=== PATIENT | male | born 1940 | race Caucasian/White ===

== ENCOUNTER 2020-08-10 12:24 | Outpatient (REF) | payer MEDICARE, SELFPAY ==
--- NOTE | ~2020-08-10 | XR_ITS ---
EXAMINATION: XR KNEE, BILATERAL XR KNEE, RIGHT CLINICAL INFORMATION: Pain COMPARISON: None TECHNIQUE: AP standing view of both knees. Lateral and sunrise views of the right knee. FINDINGS: Right knee: No fracture or subluxation. Moderate to severe lateral compartment narrowing with subchondral sclerosis. Small tricompartmental marginal osteophytes. Small joint effusion. Vascular calcifications. Mild soft tissue swelling anteriorly. Left knee: No fracture or malalignment on this single view. Mild narrowing of the medial and lateral compartments with small marginal osteophytes. XR/XR knee standing BI IMPRESSION: Tricompartment degenerative changes of the right knee, moderate to severe at the lateral compartment. Small joint effusion.
--- NOTE | ~2020-08-10 | XR_ITS ---
EXAMINATION: XR KNEE, BILATERAL XR KNEE, RIGHT CLINICAL INFORMATION: Pain COMPARISON: None TECHNIQUE: AP standing view of both knees. Lateral and sunrise views of the right knee. FINDINGS: Right knee: No fracture or subluxation. Moderate to severe lateral compartment narrowing with subchondral sclerosis. Small tricompartmental marginal osteophytes. Small joint effusion. Vascular calcifications. Mild soft tissue swelling anteriorly. Left knee: No fracture or malalignment on this single view. Mild narrowing of the medial and lateral compartments with small marginal osteophytes. XR/XR knee RT 2V IMPRESSION: Tricompartment degenerative changes of the right knee, moderate to severe at the lateral compartment. Small joint effusion.
== END 2020-08-10 12:25 | disposition home or self-care (01) ==
LOC: HO.HOSX 12:24
PROVIDERS: Visit Provider Orthopaedic Surgery
DX: M25.561 Pain in right knee (principal); M17.11 Unilateral primary osteoarthritis, right knee; G20 Parkinson's disease; Z88.6 Allergy status to analgesic agent
CPT/HCPCS: 73560; 73565; 99202

== ENCOUNTER → 2020-09-21 14:30 | Outpatient (BNVA) | payer MEDICARE, SELFPAY | PROVIDERS: PCP Internal Medicine; Visit Provider Orthopaedic Surgery | DX: M17.11 Unilateral primary osteoarthritis, right knee (principal); M17.12 Unilateral primary osteoarthritis, left knee | CPT/HCPCS: 20610; 99202; J7318 ==

== ENCOUNTER → 2020-10-16 13:03 | Outpatient (BNVA) | payer MEDICARE, SELFPAY | PROVIDERS: PCP Internal Medicine; Visit Provider Orthopaedic Surgery | DX: G20 Parkinson's disease (principal); M17.11 Unilateral primary osteoarthritis, right knee | CPT/HCPCS: 99212 ==

== ENCOUNTER 2020-12-19 07:36 | Outpatient (REF) | payer MEDICARE, SELFPAY ==
--- NOTE | ~2020-12-19 | FL_ITS ---
EXAMINATION: XR FLUOROSCOPY WITH IMAGES CLINICAL INFORMATION: Unilateral primary osteoarthritis of the right knee. COMPARISON: None. TECHNIQUE: Fluoroscopy performed by Dr. Dimas. Fluoroscopy 0.2time: minutes DAP: 1.59 Gycm2 Images: 3 FL/FL guidance in treatment room FINDINGS/IMPRESSION: Radiopaque needles overlie the distal femoral and proximal tibial metaphyses. Mild tricompartmental degenerative joint changes are seen. Please refer to the procedure report for more detailed findings.
== END 2020-12-19 07:37 | disposition home or self-care (01) ==
LOC: HO.RADIR 07:36
PROVIDERS: Visit Provider Anesthesiology
DX: M17.11 Unilateral primary osteoarthritis, right knee (principal); G20 Parkinson's disease; Z79.899 Other long term (current) drug therapy
CPT/HCPCS: 64454

== ENCOUNTER → 2020-12-25 13:07 | Outpatient (BNVA) | payer MEDICARE, SELFPAY | PROVIDERS: PCP Internal Medicine; Visit Provider Anesthesiology | DX: M17.11 Unilateral primary osteoarthritis, right knee (principal) | CPT/HCPCS: 99202 ==

== ENCOUNTER → 2021-02-19 13:45 | Outpatient (BNVA) | payer MEDICARE, SELFPAY | PROVIDERS: PCP Internal Medicine; Visit Provider Anesthesiology | DX: M17.11 Unilateral primary osteoarthritis, right knee (principal) | CPT/HCPCS: 99212 ==

== ENCOUNTER 2021-03-20 06:30 | Outpatient (REF) | payer MEDICARE, SELFPAY ==
--- NOTE | ~2021-03-20 | FL_ITS ---
EXAMINATION: XR FLUOROSCOPY WITH IMAGES CLINICAL INFORMATION: M17.11 - Unilateral primary osteoarthritis, right knee COMPARISON: Standing AP knees radiograph 08/10/2020 TECHNIQUE: Fluoroscopy performed by pain management physician. Fluoroscopy time: 0.3 minutes DAP: 0.856 Gycm2 Images: 3 FINDINGS: There are spinal needles adjacent to the distal femoral shaft, medial and lateral sides, mid depth. There is a spinal needle adjacent to the proximal tibia on medial side mid depth. There are degenerative changes greater lateral knee joint compartment with joint narrowing and marginal osteophytes. FL/FL guidance in treatment room IMPRESSION: Fluoroscopy for pain management procedures.
== END 2021-03-20 06:31 | disposition home or self-care (01) ==
LOC: HO.RADIR 06:30
PROVIDERS: Visit Provider Anesthesiology
DX: M17.11 Unilateral primary osteoarthritis, right knee (principal)
CPT/HCPCS: 64624; J3300

== ENCOUNTER → 2021-05-03 11:14 | Outpatient (BNVA) | payer MEDICARE, SELFPAY | PROVIDERS: PCP Internal Medicine; Visit Provider Anesthesiology | DX: Z13.89 Encounter for screening for other disorder (principal) | CPT/HCPCS: Q3014 ==

== ENCOUNTER → 2021-09-20 13:29 | Outpatient (BNVA) | payer MEDICARE, SELFPAY | PROVIDERS: PCP Internal Medicine; Visit Provider Orthopaedic Surgery | DX: M17.11 Unilateral primary osteoarthritis, right knee (principal); M25.562 Pain in left knee; G20 Parkinson's disease | CPT/HCPCS: 20610; 99212; J7318 ==

== ENCOUNTER → 2021-10-09 08:24 | Outpatient (BNVA) | payer MEDICARE, SELFPAY | PROVIDERS: PCP Internal Medicine; Visit Provider Psychiatry & Neurology Neurology | DX: G20 Parkinson's disease (principal); G47.52 REM sleep behavior disorder; G25.81 Restless legs syndrome; M17.11 Unilateral primary osteoarthritis, right knee | CPT/HCPCS: 99202 ==

== ENCOUNTER → 2021-11-06 15:05 | Outpatient (BNVA) | payer MEDICARE, SELFPAY | PROVIDERS: PCP Internal Medicine; Visit Provider Psychiatry & Neurology Neurology | DX: G20 Parkinson's disease (principal); G47.52 REM sleep behavior disorder; G25.81 Restless legs syndrome | CPT/HCPCS: 99212 ==

== ENCOUNTER → 2021-12-18 15:01 | Outpatient (BNVA) | payer MEDICARE, SELFPAY | PROVIDERS: PCP Internal Medicine; Visit Provider Psychiatry & Neurology Neurology | DX: G20 Parkinson's disease (principal); G47.52 REM sleep behavior disorder; G25.81 Restless legs syndrome | CPT/HCPCS: 99212 ==

== ENCOUNTER → 2022-03-26 15:02 | Outpatient (BNVA) | payer MEDICARE, SELFPAY | PROVIDERS: PCP Internal Medicine; Visit Provider Psychiatry & Neurology Neurology | DX: G20 Parkinson's disease (principal); G47.52 REM sleep behavior disorder; G25.81 Restless legs syndrome | CPT/HCPCS: 99212 ==

== ENCOUNTER → 2022-06-19 08:54 | Outpatient (BNVA) | payer MEDICARE, SELFPAY | PROVIDERS: PCP Internal Medicine; Visit Provider Psychiatry & Neurology Neurology | DX: G20 Parkinson's disease (principal); G47.52 REM sleep behavior disorder; G25.81 Restless legs syndrome; Z79.899 Other long term (current) drug therapy | CPT/HCPCS: 99212 ==

== ENCOUNTER → 2022-09-05 12:34 | Outpatient (BNVA) | payer MEDICARE, SELFPAY | PROVIDERS: PCP Internal Medicine; Visit Provider Psychiatry & Neurology Neurology | DX: G20 Parkinson's disease (principal); G47.52 REM sleep behavior disorder; G25.81 Restless legs syndrome | CPT/HCPCS: 99212 ==

== ENCOUNTER 2023-02-24 09:24 | Outpatient (AMB) | payer MEDICARE, SELFPAY ==
--- NOTE | 2023-02-24 09:25 | A.OFFVIS_ITS ---
Intake Intake Visit Reasons: 3m f/u for Parkinsons-lvm Intake Note: Pt is on telehealth visit for 3 month follow up for Parkinson's . He reports he recently had surgery where he had a stimulator implanted and feels he is doing great with this. Tremors have much better. Allergies aspirin Allergy (Unknown, Verified 02/24/23 09:27) nausea and vomiting Medication List - Last Reconciled 02/24/23 by Ananya Baer MD amantadine HCl 100 mg PO QAM carbidopa-levodopa 36.25-145 mg ER (Rytary) 3 caps PO QID clonazepam 0.5 mg PO BEDTIME finasteride 5 mg PO DAILY mirtazapine 30 mg PO BEDTIME ropinirole 1-4 tabs orally bedtime; administer 1-3 hours before bedtime venlafaxine 225 mg PO DAILY venlafaxine ER 225 mg PO BEDTIME HPI HPI Comments History of Present Illness Details 82y/o right handed male calls for follow up .He was unable to come for in perosn visit due to testing postive for COVID19. He did not have equipment to do a video visit. He had Abbe GPI DBS On November 132022 . He did well, had a brief episode of unresponsiveness - but his cT and EEG were normal. The GPI DBS has helped his tremors . He feels weak since he tested positive for COVID 1 weeks ago No falls . His RBD is well controlled now. His initial symptoms 10 years ago was left sided tremors. Now he has both rest and postural , action tremors. He also has right hand tremors and occasional leg tremors. SPeech- softer.He also has intermittent drooling. Handwriting is smaller, he can print but cannot writing. He can dress and shower - slower . He has trouble turning in bed. He is on effexor which is helping his mood. He reports word finding difficulty and problems with short term memory issues. 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 He has constipation - takes smooth move tea and prunes [facility] Medical History Pulmonary embolism Depression Osteoarthritis of right knee Parkinson disease Surgical History S/P deep brain stimulator placement History of knee replacement History of hip surgery Hx of cholecystectomy Hx of appendectomy Social History Alcohol intake: never Patient Tobacco Use Status: Never used Tobacco Current occupational status: retired Physical Exam Const Other: normal speech General: cooperative Orientation/consciousness: patient oriented x3 Neuro General: patient oriented x3 Assessment & Plan Assessment & Plan (1) Parkinson disease: Code(s): G20 - Parkinson's disease (2) REM behavioral disorder: Code(s): G47.52 - REM sleep behavior disorder (3) Restless legs syndrome (RLS): Code(s): G25.81 - Restless legs syndrome (4) Parkinson disease: Code(s): G20 - Parkinson's disease Plan amantadine 100mg qam - for dyskinesias Rytary 36/145 -3 tabs 4 times a day Tried rytary ,ogentys, rasagiline, selegelline , amantadine and entacapone in the past clonazepam 0.5mg q7pm . Medications: Refilled clonazepam q 7pm 0.5 mg PO BEDTIME 30 tabs 2RF Telehealth Telehealth Location of provider rendering services: practice address Location of patient: address on file Patient Identification confirmed using: Name, : Yes Telehealth method: voice only Patient verbally consented to treatment: Yes Patient verbally consented to billing insurance company: Yes Patient informed of any privacy concerns related to visit: Yes Minutes spent on Phone/Video with Pt.: 22 Coding Level of Care Code Tele Est Pt Level 4 (86803) Diagnoses Parkinson disease G20 REM behavioral disorder G47.52 Restless legs syndrome (RLS) G25.81 Time Spent (min) 22
== END 2023-02-24 11:50 | disposition home or self-care (01) ==
LOC: HO.HSMS 09:24
PROVIDERS: PCP Internal Medicine; Visit Provider Psychiatry & Neurology Neurology
DX: G20.A1 Parkinson's disease without dyskinesia, without mention of fluctuations (principal); G47.52 REM sleep behavior disorder; G25.81 Restless legs syndrome; Z96.82 Presence of neurostimulator
CPT/HCPCS: 99443

== ENCOUNTER → 2023-02-24 09:24 | Outpatient (BNVA) | payer MEDICARE, SELFPAY | PROVIDERS: PCP Internal Medicine; Visit Provider Psychiatry & Neurology Neurology | DX: G47.52 REM sleep behavior disorder (principal); G25.81 Restless legs syndrome ==

== ENCOUNTER 2023-05-08 08:24 | Outpatient (AMB) | payer MEDICARE, SELFPAY ==
[2023-05-08 08:28] VITALS: BP 100/72; PULSE 79; O2SAT 96; BMI 25.1
--- NOTE | 2023-05-08 08:28 | MHC.OFFVIS ---
Intake Vital Signs 05/08/23 08:28 Height 6 ft 1 in Weight 190 lb BMI 25.1 BP 100/72 Blood Pressure Location Rt brachial Position Sitting Pulse 79 Pulse Source Pulse Oximeter Pulse Oximetry (%) 96 Oxygen Delivery Method Room Air Intake Visit Reasons: Follow up-Confirmed Intake Note: Patient presents for follow up . Allergies aspirin Allergy (Unknown, Verified 05/08/23 08:31) nausea and vomiting Medication List - Last Reconciled 05/08/23 by Ananya Baer MD amantadine HCl 100 mg PO QAM apixaban (Eliquis) 5 mg PO BID carbidopa-levodopa 36.25-145 mg ER (Rytary) 3 caps PO QID clonazepam 0.5 mg PO BEDTIME finasteride 5 mg PO DAILY mirtazapine 30 mg PO BEDTIME ropinirole 1-4 tabs orally bedtime; administer 1-3 hours before bedtime venlafaxine 225 mg PO DAILY venlafaxine ER 225 mg PO BEDTIME HPI HPI Comments History of Present Illness Details 82y/o right handed male comes for follow up .He reports increased freezing episodes, increased tremors , eye twicthing and feels he is weak . He has falls every 3 months but multiple near falls. He uses his walker consistently. he has PT now and he is unable to straighten his knees. He had Abbe GPI DBS On November 132022 . He did well, had a brief episode of unresponsiveness - but his CT and EEG were normal. The GPI DBS has helped his tremors . No falls . His RBD is well controlled now. He reports leg movements in sleep that keeps him awake. His initial symptoms 11 years ago was left sided tremors. Now he has both rest and postural , action tremors. He also has right hand tremors and occasional leg tremors. SPeech- softer.He also has intermittent drooling. Handwriting is smaller, he can print but cannot writing. He can dress and shower - slower . He has trouble turning in bed. He is on effexor which is helping his mood. He reports word finding difficulty and problems with short term memory issues. 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 He has constipation - takes smooth move tea and prunes [facility] Medical History (Updated 05/08/23 @ 09:26 by Ananya Baer MD) Parkinson's disease with dyskinesia, with fluctuations Pulmonary embolism Depression Osteoarthritis of right knee Parkinson disease Surgical History S/P deep brain stimulator placement History of knee replacement History of hip surgery Hx of cholecystectomy Hx of appendectomy Social History Alcohol intake: never Patient Tobacco Use Status: Never used Tobacco Current occupational status: retired Physical Exam Vital Signs: Last Vital Signs Pulse 79 05/08/23 08:28 BP 100/72 05/08/23 08:28 Pulse Ox 96 05/08/23 08:28 Oxygen Delivery Method Room Air 05/08/23 08:28 BMI result Body Mass Index 25.1 Const General: cooperative and healthy appearing Nutritional Appearance: average body habitus Orientation/consciousness: patient oriented x3 Neuro Other: mild decreased facial expression and blink No tremors SPeech- mild hypophonia UE-No cog wheel rigidity , mild bradykinesia FFM mildly decreased LE_ no tremors stiffness of both knees with right knee swollen Unable to straighten his legs , very unstable while walking with walker General: patient oriented x3 Assessment & Plan Assessment & Plan (1) Parkinson's disease with dyskinesia, with fluctuations: Code(s): G20.B2 - Parkinson's disease with dyskinesia, with fluctuations (2) REM behavioral disorder: Code(s): G47.52 - REM sleep behavior disorder (3) Restless legs syndrome (RLS): Code(s): G25.81 - Restless legs syndrome (4) Parkinson disease: Code(s): G20 - Parkinson's disease Plan Left GPI and Right GPI 2a,b,c and 1 a b c 2.7 50 ms 135 HZ 9and 10 a b c 2.7 Hz 50 ms 135 HZ Amantadine 100mg qam - for dyskinesias Rytary 36/145 -3 tabs 4 times a day Restart ropinirole 0.25 mg 1-4 tabs qhs for RLS This was a counseling predominated session - patients main concern is his balance falls and freezing episodes which are not treatable by adjusting his DBS settings or changing medications Discussed about moving to Assisted Living which the patients is interested in as there are steps to go into the house and she is concerned about falls. Medications: Refilled ropinirole 1-4 tabs orally bedtime; administer 1-3 hours before bedtime 120 tabs 0RF Coding Level of Care Code Est Pt Level 5 (27102) Diagnoses Parkinson's disease with dyskinesia, with fluctuations G20.B2 REM behavioral disorder G47.52 Restless legs syndrome (RLS) G25.81 Parkinson disease G20
== END 2023-05-08 09:14 | disposition home or self-care (01) ==
PROVIDERS: PCP Internal Medicine; Visit Provider Psychiatry & Neurology Neurology
DX: G20.B2 Parkinson's disease with dyskinesia, with fluctuations (principal); G47.52 REM sleep behavior disorder; G25.81 Restless legs syndrome; Z45.42 Encounter for adjustment and management of neurostimulator; Z96.82 Presence of neurostimulator
CPT/HCPCS: 95970; 99215

== ENCOUNTER → 2023-05-08 08:24 | Outpatient (BNVA) | payer MEDICARE, SELFPAY | PROVIDERS: PCP Internal Medicine; Visit Provider Psychiatry & Neurology Neurology | DX: G20.B2 Parkinson's disease with dyskinesia, with fluctuations (principal); G47.52 REM sleep behavior disorder; G25.81 Restless legs syndrome | CPT/HCPCS: 95970; 99212 ==

== ENCOUNTER 2023-11-05 10:02 | Outpatient (AMB) | payer MEDICARE, SELFPAY ==
--- NOTE | 2023-11-05 10:17 | A.OFFVIS_ITS ---
Vital Signs 11/05/23 10:18 Height 6 ft 1 in BP 112/68 Blood Pressure Location Rt brachial Position Sitting Respiration 16 Pulse 86 Pulse Source Pulse Oximeter Pulse Oximetry (%) 94 Oxygen Delivery Method Room Air Intake Visit Reasons: Follow Up 6 month - Confirmed Intake Note: Pt presents for 6 month follow up for Parkinson's. 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 He has frequent falls - 2-3 falls since last visit. He had Abbe GPI DBS On November 132022 . He did well, had a brief episode of unresponsiveness - but his CT and EEG were normal. The GPI DBS has helped his tremors . No falls . His RBD is well controlled now. His initial symptoms 11 years ago was left sided tremors. Now he has both rest and postural , action tremors. He also has right hand tremors and occasional leg tremors. SPeech- softer.He also has intermittent drooling. Handwriting is smaller, he can print but cannot writing. He can dress and shower - slower . He has trouble turning in bed. He is on effexor which is helping his mood. He reports word finding difficulty and problems with short term memory issues. 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 He has constipation - takes smooth move tea and prunes [facility] Medical History Parkinson's disease with dyskinesia, with fluctuations Pulmonary embolism Depression Osteoarthritis of right knee Parkinson disease Surgical History S/P deep brain stimulator placement History of knee replacement History of hip surgery Hx of cholecystectomy Hx of appendectomy Social History Alcohol intake: never Patient Tobacco Use Status: Never used Tobacco Current occupational status: retired Physical Exam Vital Signs: Last Vital Signs Pulse 86 11/05/23 10:18 Resp 16 11/05/23 10:18 BP 112/68 11/05/23 10:18 Pulse Ox 94 11/05/23 10:18 Oxygen Delivery Method Room Air 11/05/23 10:18 Const General: cooperative and healthy appearing Nutritional Appearance: average body habitus Orientation/consciousness: patient oriented x3 Neuro Other: mild decreased facial expression and blink No tremors SPeech- mild hypophonia UE-No cog wheel rigidity , mild bradykinesia FFM mildly decreased LE_ no tremors stiffness of both knees with right knee swollen General: patient oriented x3 Assessment & Plan Assessment & Plan (1) Parkinson's disease with dyskinesia, with fluctuations: Code(s): G20.B2 - Parkinson's disease with dyskinesia, with fluctuations Category: Medical (2) REM behavioral disorder: Code(s): G47.52 - REM sleep behavior disorder Category: Medical (3) Restless legs syndrome (RLS): Code(s): G25.81 - Restless legs syndrome Category: Medical (4) Parkinson disease: Code(s): G20 - Parkinson's disease Category: Medical Plan Left GPI and Right GPI 2a,b,c and 1 a b c 2.7 50 ms 135 HZ 9and 10 a b c 2.7 Hz 50 ms 135 HZ Amantadine 100mg qam - for dyskinesias Rytary 36/145 -3 tabs 4 times a day Restart clonazepam 0.5 mg 1/2 tab qhs This was a counseling predominated session - patients main concern is his balance falls and freezing episodes which are not treatable by adjusting his DBS settings or changing medications Discussed about moving to Assisted Living which the patients is interested in as there are steps to go into the house and she is concerned about falls- very expensive for the patient Coding Level of Care Code Est Pt Level 4 (27247) Complex EM visit Add On G2211 Diagnoses Parkinson's disease with dyskinesia, with fluctuations G20.B2 REM behavioral disorder G47.52 Restless legs syndrome (RLS) G25.81 Parkinson disease G20
[2023-11-05 10:18] VITALS: BP 112/68; PULSE 86; RESP 16; O2SAT 94
== END 2023-11-05 10:51 | disposition home or self-care (01) ==
PROVIDERS: PCP Internal Medicine; Visit Provider Psychiatry & Neurology Neurology
DX: G20.B1 Parkinson's disease with dyskinesia, without mention of fluctuations (principal); G47.52 REM sleep behavior disorder; G25.81 Restless legs syndrome
CPT/HCPCS: 99214; G2211

== ENCOUNTER → 2023-11-05 10:02 | Outpatient (BNVA) | payer MEDICARE, SELFPAY | PROVIDERS: PCP Internal Medicine; Visit Provider Psychiatry & Neurology Neurology | DX: G20.B2 Parkinson's disease with dyskinesia, with fluctuations (principal); G47.52 REM sleep behavior disorder; G25.81 Restless legs syndrome | CPT/HCPCS: 99212 ==

== ENCOUNTER 2025-03-16 14:37 | Outpatient (AMB) | payer MEDICARE, SELFPAY ==
--- OUTSIDE RECORDS SUMMARY | 2024-05-25 10:45 | XMS_ITS ---
Author Organization [facility] Address [address] [place] [address] Care Team Providers Care Picture Enlarger Name Role Phone Kieran DANGELO, [place] Primary Care Provider Un available Star Dyer Unavailable [phone] Encounters Encounter Location Date Provider Diagnosis [facility] [address] [place] [address] 05/25/2024 Star Dyer Plan Of Treatment No Information Progress Notes * ELLYEmeterio BOBODOB: 1 (85 yo M)Acc No.[id number]:05/25/2024 Progress Note Patient: Emeterio TORRES Provider: Karmen Dyer DPM :1940 A ge:84 Y S ex:Male Date:05/25/2024 Address:[address] , [facility] Pcp:Chano Alcaraz MD Subjective: * Chief Complaints: * * Medical History: Objective: * Vitals: Assessment: Plan: * Treatment: * Images: * The named appointment provid er may or may not be the originator of this progress note, and it is not deemed complete until electronically signed by the appointment provider. Sign off status: Pending * Provider: Karmen Dyer DPM Date: 0 05/25/2024 Generated for Printi ng/Faxing/eTransmitting on: 05/17/2024 03:08 AM EST
--- NOTE | 2025-03-16 14:38 | MHC.OFFVIS ---
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 He reports increase in tremors and wants to increase DBS settings. He takes clonazepam as needed it made him very sleepy. He reports intermittent RBD Mild hallucinations. He reports increased freezing episodes, increased tremors , eye twitching and feels he is weak . No falls.He is in and Assisted Living and gets help for ADLs He is wheelchair bound He had Abbe GPI DBS On November 132022 . He did well, had a brief episode of unresponsiveness - but his CT and EEG were normal. The GPI DBS has helped his tremors . History from 10/2023 His initial symptoms 11 years ago was left sided tremors. Now he has both rest and postural , action tremors. He also has right hand tremors and occasional leg tremors. SPeech- softer.He also has intermittent drooling. Handwriting is smaller, he can print but cannot writing. He can dress and shower - slower . He has trouble turning in bed. He is on effexor which is helping his mood. He reports word finding difficulty and problems with short term memory issues. 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 He has constipation - takes smooth move tea and prunes [facility] Medical History Parkinson's disease with dyskinesia, with fluctuations Pulmonary embolism Depression Osteoarthritis of right knee Parkinson disease Surgical History S/P deep brain stimulator placement History of knee replacement History of hip surgery Hx of cholecystectomy Hx of appendectomy Social History Alcohol intake: never Patient Tobacco Use Status: Never used Tobacco Current occupational status: retired Physical Exam Vital Signs: Last Vital Signs Pulse 77 03/16/25 14:52 BP 128/82 03/16/25 14:52 Pulse Ox 95 03/16/25 14:52 Oxygen Delivery Method Room Air 03/16/25 14:52 Const General: cooperative and healthy appearing Nutritional Appearance: average body habitus Orientation/consciousness: patient oriented x3 Neuro Other: mild decreased facial expression and blink High amplitude rest tremors abbe - due for medication SPeech- mild hypophonia UE-No cog wheel rigidity , mild bradykinesia FFM mildly decreased LE_ no tremors stiffness of both knees General: patient oriented x3 Assessment & Plan Assessment & Plan (1) Parkinson's disease with dyskinesia, with fluctuations: Code(s): G20.B2 - Parkinson's disease with dyskinesia, with fluctuations Category: Medical (2) REM behavioral disorder: Code(s): G47.52 - REM sleep behavior disorder Category: Medical (3) Restless legs syndrome (RLS): Code(s): G25.81 - Restless legs syndrome Category: Medical (4) Parkinson disease: Code(s): G20 - Parkinson's disease Category: Medical Plan Left GPI and Right GPI - increased to Battery life 62% 2a,b,c and 1 a b c 3.3 V50 ms 135 HZ( last setting was at 3 V) 9and 10 a b c 3.5V Hz 50 ms 135 HZ( last setting was at 3.3 V) Amantadine 100mg qam - for dyskinesias D/CRytary 36/145 -3 tabs 4 times a day trial Rytary 48.75/195 3 caps tid Restart clonazepam 0.5 mg 1/2 tab qhs Medications: New carbidopa-levodopa 48.75-195 mg ER (Rytary) divide evenly over waking hours 3 caps PO TID 270 caps 6RF Coding Level of Care Code Est Pt Level 4 (40542) Complex EM visit Add On G2211 Diagnoses Parkinson's disease with dyskinesia, with fluctuations G20.B2 REM behavioral disorder G47.52 Restless legs syndrome (RLS) G25.81 Parkinson disease G20 Comment add code for DBS interrogation and adjustment
[2025-03-16 14:52] VITALS: BP 128/82; PULSE 77; O2SAT 95
--- OUTSIDE RECORDS SUMMARY | 2025-03-17 03:07 | XMS_ITS ---
Author Name [facility] Organization Unknown Results Test Name/Text Value Interpretation Date Range Source Sodium SerPl-sCnc 136.0 mmol/L 01/29/2025 135 - 14 5 [facility] Glucose SerPl-mCnc 93.0 mg/dL 01/29/2025 70 - 199 [facility] Creat SerPl-mCnc 0.89 mg/dL 01/29/2025 0.7 - 1.3 C [facility] Anion Gap SerPl Calc-sCnc 5.0 01/29/2025 5 - 14 [facility] BUN SerPl-mCnc 26.0 mg/dL Above high normal 01/29/2025 9 - 2 0 [facility] CO2 SerPl-sCnc 27.0 mmol/L 01/29/2025 24 - 32 [facility] eGFRcr SerPlBld CKD-EPI 2020 85.0 mL/min/1.73m2 01/29/2025 - [facility] Chloride SerPl-sCnc 104.0 mmol/L 01/29/2025 98 - 1 07 [facility] BUN/Creat SerPl 29.2 Above high normal 01/29/2025 12 - 20 [facility] Potassium SerPl-sCnc 4.8 mmol/L 01/29/2025 3.5 - 5 .1 [facility] Calcium SerPl-mCnc 9.2 mg/dL 01/29/2025 8.4 - 10.2 [facility] Troponin I SerPl HS-mCnc 3.0 ng/L 01/29/2025 0 - 20 [facility] BNP SerPl-mCnc 25.0 pcg/mL 01/29/2025 0 - 100 [facility] Hct VFr Bld Auto 37.5 % Below low normal 01/29/2025 40 - 54 [facility] Lymphocytes # Bld Auto 0.84 K/mcL Below low normal 01/29/2025 1 - 3.2 [facility] PMV Bld Auto 10.4 FL 01/29/2025 7.4 - 11.4 [facility] MCV RBC Auto 90.8 FL 01/29/2025 78 - 100 [facility] Monocytes NFr Bld Auto 7.0 % 01/29/2025 2 - 12 [facility] Neutrophils # Bld Auto 4.23 K/mcL 01/29/2025 1.8 - 7.8 [facility] Basophils NFr Bld Auto 0.4 % 01/29/2025 0 - 2 [facility] Neutrophils NFr Bld Auto 74.2 % Above high normal 01/29/2025 44 - 74 [facility] MCHC RBC Auto-EntMCnc 32.8 g/dL 01/29/2025 32 - 36 [facility] WBC # Bld Auto 5.7 K/mcL 01/29/2025 4 - 10.5 [facility] Eosinophil NFr Bld Auto 3.2 % 01/29/2025 0 - 6 [facility] Platelet # Bld Auto 222.0 K/mcL 01/29/2025 150 - 4 50 [facility] RBC # Bld Auto 4.13 M/mcL Below low normal 01/29/2025 4.7 - 6 [facility] Eosinophil # Bld Auto 0.18 K/mcL 01/29/2025 0 - 0. 5 [facility] Erythrocyte DistWidth Bld Auto 14.6 % 01/29/2025 12.1 - 17.7 [facility] MCH RBC Qn Auto 29.8 pcg 01/29/2025 25 - 33 [facility] Basophils # Bld Auto <0.03 K/mcL 01/29/2025 0 - 0. 2 [facility] Hgb Bld-mCnc 12.3 g/dL Below low normal 01/29/2025 13.5 - 18 [facility] Lymphocytes NFr Bld Auto 14.8 % Below low normal 01/29/2025 20 - 48 [facility] Monocytes # Bld Auto 0.4 K/mcL 01/29/2025 0 - 0.8 [facility] History of Medication Use Medication Directions Dispensed Refills Start Date End Date Stat ketoconazole (NIZORAL) 2 % shampoo 12/09/2024 active Voquezna 20 MG tablet 1 tablet (20 mg total) by Mouth/Oral Cavity route every 12 hours. 11/15/2024 active sucralfate (CARAFATE) 100 mg/mL suspension TAKE 10 ML BY MOUTH 4 TIMES DAILY FOR 1 DAY FOLLOWING ENDOSCOPIC ABLATION THERAPY 11/05/2024 active ferrous sulfate 324 mg (65 mg elemental iron) EC tablet Take 1 tablet (324 mg total) by mouth. 09/23/2024 active sucralfate (CARAFATE) 1 g tablet 1 tablet (1 g total) by Mouth/Oral Cavity route 4 (four) times a day. 09/16/2024 active sucralfate (CARAFATE) 1 g tablet 1 tablet (1 g total) by Mouth/Oral Cavity route 4 (four) times a day. 09/16/2024 active Magnesium 400 MG Tab Take 1 tablet by mouth. 08/23/2024 active PANTOprazole (PROTONIX) 40 MG EC tablet Take 1 tablet (40 mg total) by mouth. 04/13/2024 active nystatin (MYCOSTATIN, NYSTOP) 154954 UNIT/GM powder Apply topically. 03/23/2024 acti ve nystatin (MYCOSTATIN) 100,000 unit/gram powder Apply 1 Application topically 3 (three) times a day if needed for rash. APPLY TO BILATERAL GROIN 2-3 TIMES PER DAY NEEDED 03/23/2024 active methenamine hippurate (HIPREX) 1 gram tablet Take 1 tablet (1 g total) by mouth 2 (two) times a day with meals. 03/11/2024 active rOPINIRole (REQUIP) 0.25 MG tablet Take 2 tablets (0.5 mg total) by mouth. 03/09/2024 08/17/2024 aborted gabapentin (NEURONTIN) 300 mg capsule Take 1 capsule (300 mg total) by mouth at bedtime. 03/04/2024 active Breo Ellipta 100-25 mcg/dose inhaler Inhale 1 puff by mouth 1 (one) time each day. 03/01/2024 active fluticasone-vilante rol (Breo Ellipta) 100-25 MCG/ACT inhaler Inhale every 24 hours. 03/01/2024 active gabapentin (NEURONTIN) 100 MG capsule To take 100mg in the morning and 300mg at 5pm 03/01/2024 active Rytary 36.25-145 MG per capsule Take 3 capsules by mouth 4 (four) times a day. 03/01/2024 active mirtazapine (REMERON) 45 mg tablet Take 1 tablet (45 mg total) by mouth. 12/10/2023 active SUPPLY DME MISC Ustep walker 10/21/2023 active carbidopa-levodopa ER (SINEMET CR) 25-100 MG per tablet Take 1 tablet by mouth nightly. To take at 10pm 09/09/2023 12/09/2023 active Eliquis 5 MG tablet Take 1 tablet (5 mg total) by mouth 2 (two) times a day. 08/05/2023 active amantadine (SYMMETREL) 100 MG capsule Take 1 capsule (100 mg total) by mouth every morning. 08/01/2023 12/09/2023 active finasteride (PROSCAR) 5 MG tablet Take 1 tablet (5 mg total) by mouth daily. 08/01/2023 active Rytary 36.25-145 MG per capsule TAKE 3 CAPSULES BY MOUTH 4 TIMES DAILY DIVIDE EVENLY OVER WAKING HOURS 07/21/2023 03/01/2024 active mirtazapine (REMERON) 45 MG tablet Take 1 tablet by mouth nightly 06/15/2023 12/13/2024 active clonazePAM (KlonoPIN) 0.5 MG tablet TAKE 1 TABLET BY MOUTH AT BEDTIME AT 7 PM 06/13/2023 active furosemide (LASIX) 40 MG tablet TAKE 1 TABLET BY MOUTH TWICE A DAY . TAKE FIRST DOSE UPON AWAKENING AND SECOND DOSE 7-8 HOURS LATER 06/12/2023 active venlafaxine 225 MG Tablet SR 24 hr Take 1 tablet by mouth nightly 05/21/2023 12/20/2024 active clonazePAM (KlonoPIN) 0.5 mg tablet Take 1 tablet (0.5 mg total) by mouth at bedtime as needed (insomnia). 12/12/2022 active venlafaxine 225 mg 24 hr tablet Take 1 tablet (225 mg total) by mouth daily. 08/13/2020 active apixaban (Eliquis) 5 mg tablet Take 1 tablet (5 mg total) by mouth 2 (two) times a day. 12/07/2018 active finasteride (PROSCAR) 5 mg tablet Take 1 tablet (5 mg total) by mouth daily. 03/23/2018 active rOPINIRole (REQUIP) 0.25 MG tablet Take 1 tablet (0.25 mg total) by mouth 3 (three) times a day. 03/01/2024 active carbidopa-levodopa (Rytary) 36.25-145 mg per XR capsule Take 3 capsules by mouth 4 (four) times a day. active docusate sodium (COLACE) 100 mg capsule Take 1 capsule (100 mg total) by mouth 2 (two) times a day. active furosemide (LASIX) 40 mg tablet Take 1 tablet (40 mg total) by mouth 1 (one) time each day. active gabapentin (NEURONTIN) 100 mg capsule Take 1 capsule (100 mg total) by mouth 1 (one) time each day. active methenamine hippurate (HIPREX) 1 g tablet Take 1 tablet (1 g total) by mouth 2 times a day. active Allergies Allergen Reaction Severity Comment Documented Date Source Statu s ASPIRIN CRAMPSRASH/DERMAT ITIS 03/02/2024 [facility] active AMANTADINE ANALOGUES RASH 10/16/2015 [facility] active Problems Problem Status Onset Date Problem Type Date of Resolution Source Hx pulmonary embolism active 2024-04-10 [facility]Act [facility] ([facility] V24, [facility] V28) active 2024-04-08 ProblemAct [facility] Normocytic anemia active 2024-04-10 [facility]Act [facility] Bacteremia due to Proteus species active 2024-04-10 ProblemAct [facility] Indwelling catheter present on admission active 2024-04-10 ProblemAct [facility] S/P deep brain stimulator placement active 2024-04-[address] [facility] Atrial fibrillation with RVR (CMS/HCC V24, [facility] V28) active 2024-04-10 ProblemAct [facility] BPH (benign prostatic hyperplasia) active 2024-04-10 ProblemAct [facility] Restless legs syndrome (RLS) active 2024-04-10 ProblemAct [facility] Bilateral lower extremity edema active EncounterDiagnosisAct [facility] Parkinson disease (CMS/HCC V24, CMS/HCC V28) active 2024-04-10 ProblemAct [facility] Memory loss active 2012-12-08 [facility]Act [facility] Parkinson's disease with dyskinesia and fluctuating manifestations active 2012-12-08 ProblemAct [facility] Anxiety active 2023-08-12 [facility]Act [facility] Depression active 2024-03-01 ProblemAct [facility] Tardive dyskinesia active 2024-03-01 ProblemAct [facility] BPH (benign prostatic hyperplasia) active 2022-10-09 [facility]Act [facility] SOB (shortness of breath) on exertion active 2022-10-09 ProblemAct [facility] S/P deep brain stimulator placement active 2023-10-21 ProblemAct [facility] Syncope active 2023-08-12 ProblemAct [facility] Restless leg syndrome active 2024-03-01 ProblemAct [facility] Encounters Encounter Type Encounter Reason Primary Diagnosis Location Date Emergency Swollen Legs Localized edema [place] [id number] Ambulatory Edema [facility] 01/29/2025 Ambulatory Parkinson's disease with dyskinesia, with fluctuations Parkinson's disease with dyskinesia, with fluctuations [facility] 01/20/2025 Ambulatory Parkinson's disease with dyskinesia, with fluctuations Parkinson's disease with dyskinesia, with fluctuations [facility] 08/17/2024 Inpatient GRAM-NEGATIVE SEPSIS, UNSPECIFIED [facility] 04/12/2024 Ambulatory Parkinson's disease with dyskinesia, with fluctuations Parkinson's disease with dyskinesia, with fluctuations [facility] 03/01/2024 Ambulatory Unspecified urinary incontinence Unspecified urinary incontinence [facility] 12/09/2023 Ambulatory Parkinson's disease with dyskinesia, with fluctuations Parkinson's disease with dyskinesia, with fluctuations [facility] 10/21/2023 Ambulatory Parkinson's disease with dyskinesia, with fluctuations Parkinson's disease with dyskinesia, with fluctuations [facility] 09/09/2023 Ambulatory Parkinson's disease with dyskinesia, with fluctuations Parkinson's disease with dyskinesia, with fluctuations [facility] 08/12/2023 Care Team Organization Name Specialty Phone Email Start Date End jory [facility] 01/29/2025 [facility] 01/29/2025 [facility] 01/29/2025 [facility] 04/13/[address] [employer] [facility] 08/13/2023 02/20/2025 [facility] 06/17/2023 [facility] 06/13/2023
--- OUTSIDE RECORDS SUMMARY | 2025-03-17 03:07 | XMS_ITS | Patient Health Record ---
[facility] Address [address] [place] [address] Care Team Providers Care Appliquer Name Role Phone Kieran DANGELO, Chano Primary Care Provider Un available [facility] Unavailable [phone] Allergies Allergen (clinical drug ingredient) Drug/Non Drug Allergy documented on EMR Reaction Allergy Type Onset Date Status aspirin Aspirin Unknown Drug Allergy Active Reason For Referral No Information Medications Medication SIG (Take, Route, Frequency, Duration) Notes Start Date End Date Status Eliquis 5 MG as directed Orally Active Glucosamine Not-Taki ng Magnesium Not-Taking Entacapone 200 MG 1 tablet Orally Twic e a day; Duration: 30 day(s) Not-Taking Sinemet 25-100 MG 1 tablet as needed Orally Two times a Week; Duration: 30 day(s) Not-Taking Neupro 6 MG/24HR 1 patch to skin Transdermal Once a day; Duration: 30 day(s) Not-Taking Amantadine HCl 100 MG Oral; Duration: 30 Not-Taking EQ Stool Softener 100 MG TAKE 1 CAPSULE BY MOUTH TWICE DAILY DIRECTED MEDICATION TO BE STARTED AFTER SURGERY Oral; Duration: 30 Not-Taking Finasteride 5 MG 1 tablet Orally Once a day; Duration: 30 day(s) Active Pantoprazole Sodium 40 MG TAKE 1 TABLET BY MOUTH ONCE DAILY PRE-OP MEDICATION FOR AFTER SURGERY Oral; Duration: 30 Not-Taking Effexor Active Celecoxib 200 MG Oral; Duration: 33 Not-Taking Rytary 36.25-145 MG TAKE 2 CAPSULES BY MOUTH 4 TIMES DAILY DIVIDE EVENLY OVER WAKING HOURSE Oral; Duration: 30 Active clonazePAM 0.5 MG TAKE 1 TABLET BY EVERY DAY AT BEDTIME Oral; Duration: 30 Active Immunizations Vaccine Route Administration Date Status Comme nts COVID-19 Pfizer BioNTech Vaccine Unknown 12/28/2020 Administered First Dose:05/27/20 Second Dose:06/18/20 Social History Tobacco Use: Social History Observation Description Date Details (start date - stop date) Former Smoker NA - NA Tobacco Use/Smoking Question Answer Notes Are you a: former smoker Additional Findings: Tobacco Non-User Current no n-smoker Alcohol Screen Question Answer Notes Did you have a drink containing alcohol in the p ast year? No Points 0 Interpretation Negative Tobacco use other than smoking: Question Answer Notes Are you an other tobacco user? 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 Plan Of Treatment Pending Test Test Name Order Date 92212-[id number] NAIL, 6 OR MORE 06/27/2022 [id number]-KFOWMYQ NAIL, 6 OR MORE 09/10/2022 [id number]-YLRQGKZ NAIL, 6 OR MORE 11/19/2022 38897-EMKOAZI NAIL, 6 OR MORE 01/31/2023 47311-[id number] NAIL, 6 OR MORE 04/15/2023 [id number] NAIL, 6 OR MORE 07/15/2023 09649-CGOFHTC NAIL, 6 OR MORE 10/14/2023 48862-[id number] NAIL, 6 OR MORE 12/23/2023 33754-YEBFPQY NAIL, 6 OR MORE 02/24/2024 64237-ISDK SKIN LESIONS, OVER 4 02/24/20 24 40296-ORCM SKIN LESIONS, OVER 4 12/23/19 24 48320-WIQP SKIN LESIONS, OVER 4 10/14/19 24 48816-NDRK SKIN LESIONS, OVER 4 07/15/19 24 23672-HKUY SKIN LESIONS, OVER 4 04/15/20 23 18323-KIEB SKIN LESIONS, OVER 4 02/01/20 23 08938-FPYY SKIN LESIONS, OVER 4 07/25/20 23 56550-KQQP SKIN LESIONS, 2 TO 4 09/11/19 64776-EEKI SKIN LESIONS, 2 TO 4 06/28/19 75535- Removal of Foreign Body, Subcut 0 09/10/2022 Insurance Providers Payer Name Payer Address Payer Phone Subscriber Number Group Number Insured Name Patient Relationship to Insured Coverage Start Date Coverage End Date Medicare National Govt Ensequence [facility] [address] [place] [address] [id number] Emeterio Frederick Self - patient is the insured [employer] [address] [place] [address] [id number] Emeterio Frederick Self - patient is the insured Medical (General) History Medical History History ICD Code Anemia Anxiety Arthritis Back,Hip,and Knee pain Cataracts Depression Gall bladder problems Heart disease Hiatal hernia High blood pressure Parkinsons disease Measles Mumps Chicken pox Broken bones Surgical History Surgery Date(Month/Year) hip surgery gall bladder appendectomy Knee surgury/ [facility] 07/02/22 Brain surgery 09/2022 cataract removal Hospitalization History Reason Date(Month/Year) [facility] 09/2022 [facility] -[facility]- [facility] nursing 01/16-03/18 [facility] Broken Hip 01/17/21
--- OUTSIDE RECORDS SUMMARY | 2025-03-17 03:07 | XMS_ITS | Clinical Summary ---
Author Organization [facility] Address [address] [place] [address] Phone Care Team Providers Care Sales Representatives Name Role Phone Chano Alcaraz MD Primary Care Provider [phone] Allergies Active Allergy Reactions Criticality Noted Date Comments Aspirin GI Upset Medium 03/16/2012 Medications ELIQUIS 5 mg tablet Take 5 mg by mouth 2 (two) times a day. 06/23/2020 Active carbidopa-levod opa (SINEMET) 25-100 mg per tablet Take 2 tablets by mouth 4 (four) times a day. 08/21/2020 Active carbidopa-levod opa (SINEMET CR) 25-100 mg per CR tablet Take 1 tablet by mouth 2 (two) times a day. 07/24/2020 Active finasteride (PROSCAR) 5 mg tablet Take 5 mg by mouth daily. Active magnesium oxide 200 mg magnesium Tab Take by mouth daily. Active fish oil-omega-3 fatty acids 300-1,000 mg capsule Take 1 g by mouth daily. Active rotigotine (NEUPRO) 6 mg/[address] 1 patch onto the skin daily. 10/19/2019 Active venlafaxine (EFFEXOR-ER,) 225 mg TR24 Take 225 mg by mouth. At 4pm 08/13/2020 Active glucosamine-cho ndroit-vit C-Mn (GLUCOSAMINE-CH ONDROITIN COMPLX) Cap Take 1,500 mg by mouth daily. Active selegiline (ELDEPRYL) 5 mg tablet Take 5 mg by mouth 2 (two) times a day with meals. 8A and 4P Active gabapentin (NEURONTIN) 100 MG capsule Take 300 mg by mouth nightly at bedtime. 11/17/2021 Active Active Problems No known active problems Social History Tobacco Use Types Packs/Day Years Used Date Smoking Tobacco: Former Smokeless Tobacco: Never Comments:Quit smokin04/28 Education Answer Date Recorded Are you interested in more education? Not on josé antonio e 08/22/2022 Are you concerned about learning? Not on file 08/22/2022 No 08/22/2022 No 08/22/2022 Digital Access Answer Date Recorded No 09/23/2022 No 09/23/2022 No 09/23/2022 Reliable internet access at home? Not on file 09/23/2022 Device with a working camera? Not on file Sex and Gender Information Value Date Recorded Sex Assigned at Male 01/15/2022 4:49 PM EDT Legal Sex Male 7:33 PM EST Gender Identity Male 01/15/2022 4:49 PM EDT Sexual Orientation Straight 01/15/2022 4: 49 PM EDT Last Filed Vital Signs Vital Sign Reading Time Taken Comments Blood Pressure 122/66 01/16/2022 12:49 PM EDT Pulse 65 01/16/2022 12:49 PM EDT Temperature 36.7 C (98 F) 09/08/2020 10:11 AM EDT Respiratory Rate 16 01/16/2022 12:45 PM EDT Oxygen Saturation 99% 01/16/2022 12:49 PM EDT Inhaled Oxygen Concentration - - Weight 88 kg (194 lb) 01/16/2022 12:45 PM EDT Height 185.5 cm (6' 1.03 ) 01/16/2022 12:45 PM E DT Body Mass Index 25.57 01/16/2022 12:45 PM EDT Plan of Treatment Health Maintenance Due Date Last Done Comments Adult Td,Tdap Booster 1941 CREATININE LEVEL 1941 RSV VACCINE (1 - 1-dose 75+ series) 2016 DEPRESSION SCREENING 01/15/2023 01/15/2022 INFLUENZA VACCINE (#1) 2024 2, 02/05/2021, 02/05/2021, Additional history exists COVID-19 VACCINE ( season) 2024 07/26/2021, 12/28/2020, 06/18/2020, Additional history exists PNEUMOCOCCAL VACCINES (50+ years) Completed 01/03/2020, 09/21/2018 ZOSTER VACCINES Completed 05/16/2021, 02/05/2021 HEPATITIS A VACCINES Aged Out No long er eligible based on patient's age to complete this topic HIB VACCINES Aged Out No longer eligi ble based on patient's age to complete this topic IPV VACCINES Aged Out No longer eligi ble based on patient's age to complete this topic MENINGOCOCCAL VACCINES (ACWY) Aged Out No longer eligible based on patient's age to complete this topic MENINGOCOCCAL VACCINES (B) Aged Out N o longer eligible based on patient's age to complete this topic Medical Devices Not on file Insurance MEDICARE PART A & B [facility] MEDEX SUPPLEMENT MEDICARE PART A & B [employer] MEDEX SUPPLEMENT MEDICARE PART A & B [employer] MEDEX SUPPLEMENT MEDICARE PART A & B [employer] MEDEX SUPPLEMENT MEDICARE PART A & B [employer] MEDEX SUPPLEMENT MEDICARE PART A & B [facility] MEDEX SUPPLEMENT MEDICARE PART A & B [employer] MEDEX SUPPLEMENT MEDICARE PART A & B [employer] MEDEX SUPPLEMENT MEDICARE PART A & B [employer] MEDEX SUPPLEMENT Care Teams Sales Representatives Relationship Specialty Start Date End Date Chano Alcaraz MD [address] [place] [id number] PCP - General Internal Medicine 09/08/20 Additional Source Comments The information contained in this document represents components of the legal health record. It is not the complete legal health record.[facility]
--- OUTSIDE RECORDS SUMMARY | 2025-03-17 03:08 | XMS_ITS | Clinical Summary ---
Author Organization [address] Address [address] [place] [address] Care Team Providers Care Traffic Rate Analyst Name Role Phone No, Pcp (Do Not Change Name) Primary Care Provid er Unavailable Allergies Active Allergy Reactions Criticality Noted Date Comments Amantadine Analogues Rash Low 10/16/2015 Aspirin Nausea,Abdominal Pain,GI Upset,Nausea And Vomiting,Other (See Comments),Rash Medium 03/16/2012 stomach cramps stomach cramps stomach cramps Medications ELIQUIS 5 mg Tab tablet Take 1 tablet (5 mg total) by mouth. 12/15/2024 Active ferrous sulfate 324 mg (65 mg iron) delayed release tablet Take 1 tablet (324 mg total) by mouth. 09/23/2024 Active finasteride (PROSCAR) 5 mg tablet Take 1 tablet (5 mg total) by mouth daily. Active furosemide (LASIX) 40 mg tablet Take 1 tablet (40 mg total) by mouth daily. Active gabapentin (NEURONTIN) 300 mg capsule Take 1 capsule (300 mg total) by mouth. 03/04/2024 Active gabapentin (NEURONTIN) 100 mg capsule TAKE 1 CAPSULE BY MOUTH IN THE MORNING AND 4 CAPSULE AT 5PM Active mirtazapine (REMERON) 45 mg tablet Take 1 tablet (45 mg total) by mouth daily. 12/13/2024 Active pantoprazole (PROTONIX) 40 mg tablet Take 1 tablet (40 mg total) by mouth. 04/13/2024 Active sucralfate (CARAFATE) 1 gram tablet Take 1 tablet (1 g total) by mouth. 09/16/2024 Active venlafaxine XR (EFFEXOR XR) 225 mg 24 hr tablet Take 1 tablet (225 mg total) by mouth daily. 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 01/29/2025 ED (erectile dysfunction) 01/29/2025 Fractures of both acetabuli with routine healing 01/29/2025 HTN (hypertension) 01/29/2025 Insomnia 01/29/2025 Severe episode of recurrent major depressive disorder (HC Code) 01/29/2025 Transient ischemic deafness 01/29/2025 Tinnitus 01/29/2025 (HFpEF) heart failure with preserved ejection fr action 01/06/2025 Chronic anticoagulation 01/06/2025 Former cigarette smoker 01/06/2025 Paraesophageal hernia 01/06/2025 Reflux esophagitis 01/06/2025 Disorder of skin 12/09/2024 Dysphagia, unspecified 04/28/2024 Hyperlipidemia, unspecified 04/28/2024 Lymphedema, not elsewhere classified 04/28/2024 Metabolic encephalopathy 04/28/2024 Atrial fibrillation with RVR (HC Code) Hx pulmonary embolism 04/10/2024 Indwelling catheter present on admission 024 Depression 03/01/2024 Restless legs syndrome 03/01/2024 Tardive dyskinesia 03/01/2024 S/P deep brain stimulator placement 10/21/2023 Anxiety 08/12/2023 Syncope 08/12/2023 Bilateral lower extremity edema 06/18/2023 Acute respiratory failure with hypoxia (HC Code) 06/14/2020 Hospitalism 06/14/2020 Pulmonary nodule 06/14/2020 Other melanin hyperpigmentation 12/21/2019 BPH (benign prostatic hyperplasia) 03/02/2019 Hearing loss 03/02/2019 Arthritis 03/02/2019 Seborrheic dermatitis 12/16/2017 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 Current Assessment and Plan: Encounters Date Type Department Care Team Description 01/29/2025 2:30 PM EDT Office Visit [facility] [address] [place] [address] Joce Lincoln, PA Bilateral lower extremity edema (Primary Dx) from Last 3 Months Immunizations Immunization Administration Dates Next Due Influenza, trivalent, inject able, contains preservative 03/05/2024,01/08/2023,01/09/2022,02/05,02/23/2019,01/16/2018,01/11/2017 ,01/06/2016,01/30/2015 Influenza, unspecified formulation 01/03/2020 Pneumococcal conjugate PCV 13 09/21/2018 Pneumococcal polysaccharide PPSV23 01/03/2020 RSV, recombinant, adjuvant, adult IM (Arexvy) 01/08/2023 ZOSTER RECOMBINANT (Shingrix) 05/16/2021, 021 Family History Relation Name Status Comments Father Mother Social History Tobacco Use Types Packs/Day Years Used Date Smoking Tobacco: Former Cigarettes Smokeless Tobacco: Never Tobacco Cessation:Counseling Given: Not Answered Alcohol Use Standard Drinks/Week Comments Not Currently 0 (1 standard drink = 0.6 oz pur e alcohol) Sex and Gender Information Value Date Recorded Sex Assigned at Not on file Legal Sex Male 1:27 PM EDT Gender Identity Not on file Sexual Orientation Not on file Last Filed Vital Signs Vital Sign Reading Time Taken Comments Blood Pressure 99/64 01/29/2025 1:50 PM EDT Pulse 70 01/29/2025 1:50 PM EDT Temperature 37.1 C (98.8 F) 01/29/2025 1:50 PM EDT Respiratory Rate 16 01/29/2025 1:50 PM EDT Oxygen Saturation 95% 01/29/2025 1:50 PM EDT Inhaled Oxygen Concentration - - Weight 88.5 kg (195 lb) 01/29/2025 1:50 PM EDT Height 185.4 cm (6' 1 ) 01/29/2025 1:50 PM EDT Body Mass Index 25.73 01/29/2025 1:50 PM EDT Plan of Treatment Health Maintenance Due Date Last Done Comments HIV screening 1954 Diabetes screening 1959 Tetanus adult (Td q 10,TDAP once) 1961 Lipid disorder screening 1981 Influenza vaccine 11/26/2024 03/05/2024, , 01/09/2022, Additional history exists Covid-19 vaccine series ( season) 2024 02/04/2023, 07/26/2021, 12/28/2020, Additional history exists Pneumococcal Vaccine (50+ years) Completed 01/03/2020, 09/21/2018 Shingles vaccine (Shingrix) Completed 05/16/2021, 1 RSV Immunization Completed 01/08/2023 Colon cancer screening, Colonoscopy Discontinued Meningococcal B Vaccine Aged Out No l onger eligible based on patient's age to complete this topic Meningococcal Vaccine Aged Out No irma jacob eligible based on patient's age to complete this topic Insurance [facility] MEDICARE [facility] MEDICARE [facility] MEDICARE Care Teams Traffic Rate Analyst Relationship Specialty Start Date End Date No, Pcp (Do Not Change Name) PCP - General 01/29/25
--- OUTSIDE RECORDS SUMMARY | 2025-03-17 03:09 | XMS_ITS | Encounter Summary ---
Author Organization [facility] Address [address] [place] [address] Care Team Providers Care Parasitologist Name Role Phone Chano Alcaraz MD Primary Care Provider [phone] Encounter Details Date Type Department Care Team (Late st Contact Info) Description 12/30/2023 Scanned Document [facility] Urologic Surgery [place] [address] [phone] Adrianne Byrd PA-C 65 [facility] [address] [place] [address] Social History Tobacco Use Types Packs/Day Years Used Date Smoking Tobacco: Former Cigarettes Alcohol Use Standard Drinks/Week Comments Not Currently 0 (1 standard drink = 0.6 oz pur e alcohol) Sex and Gender Information Value Date Recorded Sex Assigned at Male 06/17/2023 9:58 AM EST Legal Sex Male 6:38 PM EST Gender Identity Male 06/17/2023 9:58 AM EST Sexual Orientation Heterosexual (straight) 12/29 11:04 AM EDT 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
--- OUTSIDE RECORDS SUMMARY | 2025-03-17 03:09 | XMS_ITS | Encounter Summary ---
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
--- OUTSIDE RECORDS SUMMARY | 2025-03-17 03:09 | XMS_ITS | Encounter Summary ---
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
--- OUTSIDE RECORDS SUMMARY | 2025-03-17 03:09 | XMS_ITS | Encounter Summary ---
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
--- OUTSIDE RECORDS SUMMARY | 2025-03-17 03:09 | XMS_ITS | Encounter Summary ---
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
--- OUTSIDE RECORDS SUMMARY | 2025-03-17 03:09 | XMS_ITS | Clinical Summary ---
Author Organization [facility] Address [address] [place] [address] Care Team Providers Care Cementing Machine Operator Name Role Phone Armando House MD Primary Care Provider [phone] Allergies Active Allergy Reactions Criticality Noted Date Comments Aspirin 05/02/2017 Medications No known medications Active Problems No known active problems Social History Tobacco Use Types Packs/Day Years Used Date Smoking Tobacco: Former Smokeless Tobacco: Never Alcohol Use Standard Drinks/Week Comments No 0 (1 standard drink = 0.6 oz pur e alcohol) Sex and Gender Information Value Date Recorded Sex Assigned at Not on file Gender Identity Not on file Sexual Orientation Not on file Last Filed Vital Signs Vital Sign Reading Time Taken Comments Blood Pressure 121/82 05/02/2017 2:41 PM EST Pulse 241 05/02/2017 2:41 PM EST Temperature - - Respiratory Rate - - Oxygen Saturation - - Inhaled Oxygen Concentration - - Weight - - Height 185.4 cm (6' 1 ) 05/02/2017 2:41 PM EST Body Mass Index - - Plan of Treatment Health Maintenance Due Date Last Done Comments COVID-19 Vaccine (#1) 1941 Depression Screening 1953 Preventative Health Evaluation 1959 DTap / Tdap / Td (1 - Tdap) 1960 Shingrix-Zoster Vaccine (1 of 2) 1991 Fall Risk Assessment 2006 Pneumococcal Vaccine (1 of 1 - PCV) 2006 RSV Adult > 60+ Yrs or Pregn ant (1 - 1-dose 75+ series) 2016 Influenza Vaccine (#1) 2024 Hepatitis B Vaccines Aged Out No long er eligible based on patient's age to complete this topic RSV Ped < 20 months Aged Out No longe r eligible based on patient's age to complete this topic Care Teams Cementing Machine Operator Relationship Specialty Start Date End Date Armando House MD PCP - General Internal Medicine 05/02/17
--- OUTSIDE RECORDS SUMMARY | 2025-03-17 03:09 | XMS_ITS | Encounter Summary ---
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
--- OUTSIDE RECORDS SUMMARY | 2025-03-17 03:10 | XMS_ITS | Clinical Summary ---
Author Organization [facility] Address [address] [place] [address] Care Team Providers Care Athletic Monitor Name Role Phone Chano Alcaraz MD Primary Care Provider [phone] Allergies Active Allergy Reactions Criticality Noted Date Comments Aspirin GI Intolerance/Nausea/Vomit ing,Other (See Comments),Rash/Dermatiti s Medium 03/16/2012 stomach cramps stomach cramps Medications finasteride (PROSCAR) 5 MG tablet Take 1 tablet (5 mg total) by mouth daily. 08/01/19 24 Active Eliquis 5 MG tablet Take 1 tablet (5 mg total) by mouth 2 (two) times a day. 08/05/19 24 Active furosemide (LASIX) 40 MG tablet TAKE 1 TABLET BY MOUTH TWICE A DAY . TAKE FIRST DOSE UPON AWAKENING AND SECOND DOSE 7-8 HOURS LATER 06/12/19 24 Active clonazePAM (KlonoPIN) 0.5 MG tablet TAKE 1 TABLET BY MOUTH AT BEDTIME AT 7 PM 06/13/19 24 Active SUPPLY DME MISCIndications:Pa rkinson's disease with dyskinesia and fluctuating manifestations (HCC) Ustep walker 1 each 10/21/19 24 Active Additional Information Patient not taking.Reported on 01/20/2025 Rytary 36.25-145 MG per capsuleIndications :Parkinson's disease with dyskinesia and fluctuating manifestations (HCC) Take 3 capsules by mouth 4 (four) times a day. 1080 capsule 1 03/01/20 24 Active fluticasone-vilant francine (Breo Ellipta) 100-25 MCG/ACT inhaler Inhale every 24 hours. 03/01/20 24 Active methenamine hippurate (HIPREX) 1 g tablet Take 1 tablet (1 g total) by mouth 2 times a day. Active nystatin (MYCOSTATIN, NYSTOP) 246944 UNIT/GM powder Apply topically. 03/23/20 Active PANTOprazole (PROTONIX) 40 MG EC tablet Take 1 tablet (40 mg total) by mouth. 04/13/20 Active Magnesium 400 MG Tab Take 1 tablet by mouth. 08/24/19 Active mirtazapine (REMERON) 45 MG tabletIndications: Depression, unspecified depression type Take 1 tablet by mouth nightly 30 tablet 11 12/14/19 Active ketoconazole (NIZORAL) 2 % shampoo 12/10/19 Active sucralfate (CARAFATE) 1 g tablet 1 tablet (1 g total) by Mouth/Oral Cavity route 4 (four) times a day. 09/17/19 Active venlafaxine 225 MG Tablet SR 24 hrIndications:Depr ession, unspecified depression type Take 1 tablet by mouth nightly 90 tablet 3 12/21/19 Active Voquezna 20 MG tablet 1 tablet (20 mg total) by Mouth/Oral Cavity route every 12 hours. 11/16/19 Active gabapentin (NEURONTIN) 100 MG capsuleIndications :Restless leg syndrome,Tardive dyskinesia TAKE 1 CAPSULE (100 MG) BY MOUTH IN THE MORNING AND 4 CAPSULES (400 MG) AT 5 PM. 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 Current Assessment and Plan: Encounters Date Type Department Care Team Description 01/20/2025 4:20 PM EDT Office Visit [facility] [address] [phone] Whit Rose PA-C Parkinson's disease with dyskinesia and fluctuating manifestations (HCC) (Primary Dx); S/P deep brain stimulator placement; Restless leg syndrome; Tardive dyskinesia 01/20/2025 Travel from Last 3 Months Social History Tobacco Use Types Packs/Day Years Used Date Smoking Tobacco: Former Cigarettes Smokeless Tobacco: Never Tobacco Cessation:Counseling Given: Not Answered Alcohol Use Standard Drinks/Week Comments Not Currently 0 (1 standard drink = 0.6 oz pur e alcohol) PHQ-2 Answer Date Recorded PHQ-2 Total Score 6 01/20/2025 Sex and Gender Information Value Date Recorded Sex Assigned at Male 06/17/2023 9:58 AM EST Legal Sex Male 6:38 PM EST Gender Identity Male 06/17/2023 9:58 AM EST Sexual Orientation Heterosexual (straight) 12/29 11:04 AM EDT 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 Not on file Last Filed Vital Signs Vital Sign Reading Time Taken Comments Blood Pressure 144/78 01/20/2025 4:11 PM EDT diego ble to stand Pulse 69 01/20/2025 4:11 PM EDT Temperature - - Respiratory Rate - - Oxygen Saturation 98% 08/12/2023 1:56 PM EDT Inhaled Oxygen Concentration - - Weight 81.6 kg (180 lb) 12/09/2023 1:22 PM EDT p er pt Height 185.4 cm (6' 1 ) 12/09/2023 1:22 PM EDT p er pt Body Mass Index 23.75 12/09/2023 1:22 PM EDT Plan of Treatment Health Maintenance Due Date Last Done Comments Advance Care Planning 1940 DTaP/Tdap/Td Vaccines (1 - Tdap) 1960 Pneumococcal Vaccines 50+ (1 of 1 - PCV) 1991 Zoster (Shingles) Vaccine (1 of 2) 1991 RSV Vaccine 50 years and older and Patients (1 - 1-dose 75+ series) 2016 Influenza Vaccine 11/26/2024 03/05/2024, , 01/09/2022, Additional history exists COVID-19 Vaccine ( season) 2024 02/04/2023, 07/26/2021, 12/28/2020, Additional history exists Hepatitis B Vaccines Aged Out No long er eligible based on patient's age to complete this topic Insurance [facility] Care Teams Athletic Monitor Relationship Specialty Start Date End Date Chano Alcaraz MD [address] [place], [place] [phone] PCP - General Internal Medicine 06/17/23
--- OUTSIDE RECORDS SUMMARY | 2025-03-17 03:11 | XMS_ITS ---
Author Organization [facility] Care Team Providers Care [employer] Manager Name Role Phone Husam Landon Unavailable Unavailable Clementina Phillips Unavailable Unavailable Allergies and adverse reactions Code CodeSystem Substance Reaction Severity StartDate Concern Status 1191 RXNORM Aspirin Nausea (code- [id number], SNOMED CT) Mild 02/10/2021 active Care Team Name Role Address Phone Organization Dates Husam Landon PCP [address], [place], [address], [place] (Office): : [facility] 02/10/2021 - 02/26/2021 Clementina Phillips [address], [place], [facility], [facility] (Office): : [facility] 02/10/2021 - 02/26/2021 Immunizations Immunization Status Vaccine Details Vaccine Code CodeSystem Date Notes SARS-COV-2 (COVID-19) completed SARS-COV-2 (COVID-19) vaccine, mRNA, spike protein, LNP, preservative free, 100 mcg/0.5mL dose or 50 mcg/0.25mL dose lotNumber: [id number] Mfg: pfizer Given intramuscularly Step 2 of Multi-step with next step required 207 CVX created date: 02/11/2021 consent date: 02/11/2021 administer ed date: 06/18/2020 Historical ; given @ patient's [facility] pharmacy. Pfizer vaccine. SARS-COV-2 (COVID-19) completed SARS-COV-2 (COVID-19) vaccine, mRNA, spike protein, LNP, preservative free, 100 mcg/0.5mL dose or 50 mcg/0.25mL dose lotNumber: [id number] Mfg: pfizer Given intramuscularly Step 1 of Multi-step with next step required 207 CVX created date: 02/11/2021 consent date: 02/11/2021 administer ed date: 05/27/2020 Historical ; given @ pt's [facility] pharmacy. Synthace vaccine. COVID-19 Vaccine Single Dose completed unknown vaccine or immune globulin lotNumber: [id number] Mfg: pfizer Given intramuscularly 999 CVX created date: 02/11/2021 consent date: 02/11/2021 administer ed date: 12/28/2020 Historical . Given at patient's [facility] pharmacy. Pfizer booster vaccine dose. Mental Status Section Date Assessment Total Score Description 02/26/2021 BIMS 15 cognitively int act CAM 0 No delirium ind icated PHQ-9 08 mild depression 02/17/2021 BIMS 15 cognitively int act CAM 0 No delirium ind icated PHQ-9 08 mild depression Insurance Providers Problems Problem # Description Date of onset Resolved Date Code CodeSystem Concern Status 1 BENIGN PROSTATIC HYPERPLASIA WITHOUT LOWER URINARY TRACT SYMPTOMS 02/10/[id number] active 2 ESSENTIAL (PRIMARY) HYPERTENSION 02/10/[address] active 3 GENERALIZED ANXIETY DISORDER 02/10/[address] active 4 PAIN IN LEFT ARM 02/10/[address] active 5 PAIN IN LEFT SHOULDER 02/10/[address] active 6 PALPITATIONS 02/10/[address] activ e 7 PARKINSON'S DISEASE 02/10/2021 98151840 SNOM[address] C T active 8 PERSONAL HISTORY OF OTHER VENOUS THROMBOSIS AND EMBOLISM 02/10/[address] active 9 PRESENCE OF LEFT ARTIFICIAL HIP JOINT 02/10/[address] active 10 UNSPECIFIED ABNORMALITIES OF GAIT AND MOBILITY 02/10/[address] active 11 UNSPECIFIED FALL, INITIAL ENCOUNTER 02/10/[address] active 12 WEAKNESS 02/10/[address] active Reason for Referral No Reasons for Referral Entered Social History Social History Observation Description Start Date End Date Code Code System Current Smoking Status Tobacco smoking consumption unknown 482290492 SNOMED CT Sex Assigned At Male 1940 02538-2 [facility] Gender Identity Sexual Orientation Vital Signs Code Code System Vitals Name Values and Units Timing Information 11307-5 [facility] Pain Level Value=0.0 02/26/2021 9279-1 [facility] Respiratory Rate Value=18.0 Units=/m in 02/25/2021 8462-4 [facility] Blood Pressure-Diastolic Value=70 Un its=mmHg 02/25/2021 8480-6 [facility] Blood Pressure-Systolic Sgkun=250 Un its=mmHg 02/25/2021 8310-5 [facility] Body Temperature Value=97.7 Units= F 02/25/2021 8867-4 [facility] Heart rate Value=72.0 Units=/min 32728-5 [facility] O2 % BldC Oximetry Value=97.0 Units= % 02/25/2021 34494-6 [facility] Weight Yhvgs=265.8 Units=Lbs 8302-2 [facility] Height Value=72.0 Units=Inches 02/14/2021
--- OUTSIDE RECORDS SUMMARY | 2025-04-23 19:00 | XMS_ITS | Clinical Summary ---
Author Organization Unknown Care Team Providers Care Ballistic Technician Name Role Phone DARIAN DANGELO, ANYA Unavailable Unavaila aleisha CHRISTENSEN WINDOWS SYSTEM ADMIN/TRAVEL TRAILER COMPONENTS ASSEMBLER, RENAN Unavailable Unava susie SLAUGHTER RN, DEMETRI Unavailable Unavailable Payers Payer Name Policy Type Policy Number Effective Date Expira tion Date MEDICARE - [facility] [place] - PD [id number] Problems Condition Name Condition Details Condition Category Status Onset Date Resolution Date Last Treatment Date Treating Clinician Comments PARKINSON'S DIS W/O DYSKINESIA, W/O MENTION OF FLUCTUATIONS Active 8 00:00: 00 PAROXYSMAL ATRIAL FIBRILLATION Active 04-28 00:00: 00 HYPERTENSIVE HEART DISEASE WITH HEART FAILURE Active 04-28 00:00: 00 CHRONIC DIASTOLIC (CONGESTIVE) HEART FAILURE Active 04-28 00:00: 00 CHRONIC RIGHT HEART FAILURE Active 04-28 00:00: 00 UNSPECIFIED ATRIAL FLUTTER Active - 00:00: 00 EMPHYSEMA, UNSPECIFIED Active - 00:00: 00 BENIGN PROSTATIC HYPERPLASIA WITH LOWER URINARY TRACT SYMP Active - 00:00: 00 OTHER OBSTRUCTIVE AND REFLUX UROPATHY Active - 00:00: 00 OTHER RETENTION OF URINE Active - 00:00: 00 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 ESOPHAGITIS Active - 00:00: 00 ANXIETY DISORDER, UNSPECIFIED Active - 00:00: 00 MAJOR DEPRESSIVE DISORDER, SINGLE EPISODE, UNSPECIFIED Active - 00:00: 00 LYMPHEDEMA, NOT ELSEWHERE CLASSIFIED Active - 00:00: 00 ANEMIA, UNSPECIFIED Active 04-28 00:00: 00 ATHEROSCLERO SIS OF AORTA Active 04-28 00:00: 00 RESTLESS LEGS SYNDROME Active 04-28 00:00: 00 DVRTCLOS OF INTEST, PART UNSP, 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 BLEED Active 04-28 00:00: 00 DIAPHRAGMATI C HERNIA WITHOUT OBSTRUCTION OR GANGRENE Active 04-28 00:00: 00 DYSPHAGIA, UNSPECIFIED Active 04-28 00:00: 00 INSOMNIA, UNSPECIFIED Active 04-28 00:00: 00 OTHER CONSTIPATION Active 04-28 00:00: 00 ENCOUNTER FOR FITTING AND ADJUSTMENT OF URINARY DEVICE Active 04-28 00:00: 00 SHELTER (CURRENT) USE OF ANTICOAGULAN TS Active 04-28 00:00: 00 DEPENDENCE ON WHEELCHAIR Active 04-28 00:00: 00 PERSONAL HISTORY OF NICOTINE DEPENDENCE Active 04-28 00:00: 00 PERSONAL HISTORY OF PULMONARY EMBOLISM Active 04-28 00:00: 00 PERSONAL HISTORY OF URINARY (TRACT) INFECTIONS Active 04-28 00:00: 00 Problems related to health literacy Active 04-28 00:00: 00 PERSONAL HISTORY OF COVID-19 Active 04-28 00:00: 00 Allergies, Adverse Reactions, Alerts Allergy Name Allergy Type Status Severity Reaction(s) Onset Date Inactive Date Treating Clinician Comments ASCRIPTIN (ASPIRIN BUFF) Propensity to adverse reactions Active 06-29 11:40: 40 Medications Ordered Medication Name Filled Medication Name Start Date Stop Date Current Medication? Ordering Clinician Indication Dosage Frequency Signature (SIG) Comments Components cefpodoxime 200 mg tablet 01-11 00:00: 00 01-18 23:59 :00 No [id number] 1 tablet 2 TIMES DAILY 1 tablet 2 TIMES DAILY (route: oral) Med Classific ation: Anti-Infe ctive Agents lactulose 10 gram/15 mL oral solution 01-11 00:00: 00 04-01 23:59 :00 No [id number] 30 g DAILY 30 g DAILY (route: oral) Med Classific ation: Gastroint estinal Therapy Agents Rytary 36.25 mg-145 mg capsule,ext ended release 13 00:00: 00 04-01 23:59 :00 No [id number] 4 capsule 4 TIMES DAILY 4 capsule 4 TIMES DAILY (route: oral) Med Classific ation: Central Nervous System Agents Breo Ellipta 100 mcg-25 mcg/dose powder for inhalation - 00:00: 00 04-01 23:59 :00 No [id number] 1 inhalat ion ONCE DAILY 1 inhalation ONCE DAILY (route: inhalation ) Med Classific ation: Respirato ry Therapy Agents mirtazapine 45 mg tablet 12-12 00:00: 00 04-01 23:59 :00 No [id number] 1 tablet DAILY 1 tablet DAILY (route: oral) Med Classific ation: Central Nervous System Agents docusate sodium 100 mg capsule 16 00:00: 00 04-01 23:59 :00 No [id number] 1 capsule 2 TIMES DAILY 1 capsule 2 TIMES DAILY (route: oral) Med Classific ation: Gastroint estinal Therapy Agents Eliquis 5 mg tablet 10-26 00:00: 00 04-01 23:59 :00 No [id number] 1 tablet 2 TIMES DAILY 1 tablet 2 TIMES DAILY (route: oral) Med Classific ation: Hematolog ical Agents ferrous sulfate 325 mg (65 mg iron) tablet 10-26 00:00: 00 04-01 23:59 :00 No [id number] 1 tablet DAILY 1 tablet DAILY (route: oral) Med Classific ation: Electroly te Balance-N utritiona l Products finasteride 5 mg tablet 10-26 00:00: 00 04-01 23:59 :00 No [id number] 1 tablet DAILY 1 tablet DAILY (route: oral) Med Classific ation: Genitouri nary Therapy furosemide 40 mg tablet 10-26 00:00: 00 04-01 23:59 :00 No [id number] 1 tablet 2 TIMES DAILY 1 tablet 2 TIMES DAILY (route: oral) Med Classific ation: Cardiovas cular Therapy Agents magnesium 400 mg (as magnesium oxide) tablet 10-26 00:00: 00 04-01 23:59 :00 No [id number] 1 tablet DAILY 1 tablet DAILY (route: oral) Med Classific ation: Electroly te Balance-N utritiona l Products prednisolon e acetate 1 % eye drops,suspe nsion 10-26 00:00: 00 04-01 23:59 :00 No [id number] 1 drops 3 TIMES DAILY 1 drops 3 TIMES DAILY (route: ophthalmic (eye)) Med Classific ation: Ophthalmi c Agents ropinirole 0.25 mg tablet 09-28 00:00: 00 04-01 23:59 :00 No [id number] Per instruc tions DIRECTED Per instructio ns DIRECTED (route: oral) Med Classific ation: Central Nervous System Agents venlafaxine ER 225 mg tablet,exte nded release 24 hr 10-26 00:00: 00 04-01 23:59 :00 No [id number] 1 tablet DAILY 1 tablet DAILY (route: oral) Med Classific ation: Central Nervous System Agents Vitamin D3 125 mcg (5,000 unit) tablet 09-28 00:00: 00 04-01 23:59 :00 No [id number] 1 tablet DAILY 1 tablet DAILY (route: oral) Med Classific ation: Electroly te Balance-N utritiona l Products clonazepam 0.5 mg tablet 2023-04 0-11 00:00: 00 04-01 23:59 :00 No [id number] Per instruc tions BEDTIME Per instructio ns BEDTIME (route: oral) Med Classific ation: Central Nervous System Agents acetaminoph en 325 mg tablet 04-30 00:00: 00 06-27 23:59 :00 No [id number] 2 tablet EVERY 4 HOURS 2 tablet EVERY 4 HOURS (route: oral) Med Classific ation: Analgesic , Anti-infl ammatory or Antipyret ic albuterol sulfate HFA 90 mcg/actuati on aerosol inhaler 04-30 00:00: 00 06-27 23:59 :00 No [id number] 2 puff EVERY 6 HOURS 2 puff EVERY 6 HOURS (route: inhalation ) Med Classific ation: Respirato ry Therapy Agents amantadine HCl 100 mg tablet 04-30 00:00: 00 06-27 23:59 :00 No [id number] 1 tablet DAILY 1 tablet DAILY (route: oral) Med Classific ation: Central Nervous System Agents amoxicillin 500 mg capsule 04-30 00:00: 00 06-27 23:59 :00 No [id number] 4 capsule DIRECTED 4 capsule DIRECTED (route: oral) Med Classific ation: Anti-Infe ctive Agents Breo Ellipta 100 mcg-25 mcg/dose powder for inhalation 04-30 00:00: 00 06-27 23:59 :00 No [id number] 1 inhalat ion DAILY 1 inhalation DAILY (route: inhalation ) Med Classific ation: Respirato ry Therapy Agents clonazepam 0.5 mg tablet 04-30 00:00: 00 06-27 23:59 :00 No [id number] 1 tablet BEDTIME 1 tablet BEDTIME (route: oral) Med Classific ation: Central Nervous System Agents docusate sodium 100 mg capsule 04-30 00:00: 00 06-27 23:59 :00 No [id number] 1 capsule 2 TIMES DAILY 1 capsule 2 TIMES DAILY (route: oral) Med Classific ation: Gastroint estinal Therapy Agents Eliquis 5 mg tablet 04-30 00:00: 00 06-27 23:59 :00 No [id number] 1 tablet 2 TIMES DAILY 1 tablet 2 TIMES DAILY (route: oral) Med Classific ation: Hematolog ical Agents finasteride 5 mg tablet 04-30 00:00: 00 06-27 23:59 :00 No [id number] 1 tablet DAILY 1 tablet DAILY (route: oral) Med Classific ation: Genitouri nary Therapy gabapentin 100 mg capsule 04-30 00:00: 00 06-27 23:59 :00 No [id number] 1 capsule DAILY 1 capsule DAILY (route: oral) Med Classific ation: Central Nervous System Agents gabapentin 300 mg capsule - 00:00: 00 06-27 23:59 :00 No [id number] 1 capsule BEDTIME 1 capsule BEDTIME (route: oral) Med Classific ation: Central Nervous System Agents mirtazapine 45 mg tablet - 00:00: 00 06-27 23:59 :00 No [id number] 1 tablet BEDTIME 1 tablet BEDTIME (route: oral) Med Classific ation: Central Nervous System Agents pantoprazol e 40 mg tablet,baltazar yed release - 00:00: 00 06-27 23:59 :00 No [id number] 1 tablet DAILY 1 tablet DAILY (route: oral) Med Classific ation: Gastroint estinal Therapy Agents ropinirole 0.25 mg tablet 04-30 00:00: 00 06-27 23:59 :00 No [id number] 1-4 tablet DIRECTED 1-4 tablet DIRECTED (route: oral) Med Classific ation: Central Nervous System Agents Rytary 36.25 mg-145 mg capsule,ext ended release 04-30 00:00: 00 06-27 23:59 :00 No [id number] 2 capsule 4 TIMES DAILY 2 capsule 4 TIMES DAILY (route: oral) Med Classific ation: Central Nervous System Agents venlafaxine ER 225 mg tablet,exte nded release 24 hr - 00:00: 00 06-27 23:59 :00 No [id number] 1 tablet BEDTIME 1 tablet BEDTIME (route: oral) Med Classific ation: Central Nervous System Agents amantadine HCl 100 mg capsule 3-04 00:00: 00 Yes [id number] 1 capsule DAILY 1 capsule DAILY (route: oral) Med Classific ation: Central Nervous System Agents clonazepam 0.5 mg tablet 3-04 00:00: 00 Yes [id number] 1 tablet BEDTIME 1 tablet BEDTIME (route: oral) Med Classific ation: Central Nervous System Agents Eliquis 5 mg tablet 3-04 00:00: 00 Yes [id number] 1 tablet 2 TIMES DAILY 1 tablet 2 TIMES DAILY (route: oral) Med Classific ation: Hematolog ical Agents finasteride 5 mg tablet 06-29 00:00: 00 Yes [id number] 1 tablet DAILY 1 tablet DAILY (route: oral) Med Classific ation: Genitouri nary Therapy gabapentin 100 mg capsule 06-29 00:00: 00 Yes [id number] 1 capsule DAILY 1 capsule DAILY (route: oral) Med Classific ation: Central Nervous System Agents gabapentin 300 mg capsule 06-29 00:00: 00 Yes [id number] 1 capsule BEDTIME 1 capsule BEDTIME (route: oral) Med Classific ation: Central Nervous System Agents mirtazapine 45 mg tablet 06-29 00:00: 00 Yes [id number] 1 tablet DAILY 1 tablet DAILY (route: oral) Med Classific ation: Central Nervous System Agents pantoprazol e 40 mg tablet,baltazar yed release 06-29 00:00: 00 10-21 23:59 :00 No [id number] 1 tablet DAILY 1 tablet DAILY (route: oral) Med Classific ation: Gastroint estinal Therapy Agents ropinirole 0.25 mg tablet 06-29 00:00: 00 Yes [id number] 2 tablet DAILY 2 tablet DAILY (route: oral) Med Classific ation: Central Nervous System Agents Rytary 36.25 mg-145 mg capsule,ext ended release 06-29 00:00: 00 Yes [id number] 3 capsule 4 TIMES DAILY 3 capsule 4 TIMES DAILY (route: oral) Med Classific ation: Central Nervous System Agents venlafaxine ER 225 mg tablet,exte nded release 24 hr 06-29 00:00: 00 Yes [id number] 1 tablet DAILY 1 tablet DAILY (route: oral) Med Classific ation: Central Nervous System Agents albuterol sulfate HFA 90 mcg/actuati on aerosol inhaler 06-29 00:00: 00 Yes [id number] 2 puff EVERY 6 HOURS 2 puff EVERY 6 HOURS (route: inhalation ) Med Classific ation: Respirato ry Therapy Agents Breo Ellipta 100 mcg-25 mcg/dose powder for inhalation 3-04 00:00: 00 Yes [id number] 1 inhalat ion DAILY 1 inhalation DAILY (route: inhalation ) Med Classific ation: Respirato ry Therapy Agents pantoprazol e 40 mg tablet,baltazar yed release 3- 00:00: 00 10-21 23:59 :00 No [id number] 1 tablet 2 TIMES DAILY 1 tablet 2 TIMES DAILY (route: oral) Med Classific ation: Gastroint estinal Therapy Agents fluconazole 200 mg tablet - 00:00: 00 Yes [id number] 200 mg DAILY 200 mg DAILY (route: oral) Alternate Route: SUBLINGUA L. Med Classific ation: Anti-Infe ctive Agents Carafate 100 mg/mL oral suspension 10-26 00:00: 00 Yes [id number] 10 mL 4 TIMES DAILY 10 mL 4 TIMES DAILY (route: oral) Med Classific ation: Gastroint estinal Therapy Agents Voquezna 20 mg tablet 10-26 00:00: 00 12-03 00:58 :03.3 47 No [id number] 1 tablet 2 TIMES DAILY 1 tablet 2 TIMES DAILY (route: oral) Med Classific ation: Gastroint estinal Therapy Agents Voquezna 20 mg tablet 10-21 00:00: 00 Yes [id number] 1 tablet 2 TIMES DAILY 1 tablet 2 TIMES DAILY (route: oral) Med Classific ation: Gastroint estinal Therapy Agents Immunizations Ordered Immunization Name Filled Immunization Name Date Status Comments Refusal Reason INFLUENZA, TIV (INACTIVATED) 2024-02-26 00:00:00 Vital Signs Vital Name Observation Time Observation Value Commen ts Temperature 2025 09:33:00.000 101 [degF] Pulse 2025 09:33:00.000 88 /min O2 Saturation (%) 2025 09:33:00.000 98 % Respirations 2025 09:33:00.000 18 /min Systolic Blood Pressure 2025 09:33:00.000 120 mm [Hg] Diastolic Blood Pressure 2025 09:33:00.000 80 mm [Hg] Plan of Treatment Planned Activity Planned Date Details Comments Future Scheduled Test SKILLED NU RSE TO EVALUATE PATIENT, IDENTIFY PRIMARY AND CO-MORBID CONDITIONS CODED PER CODING GUIDELINES, AND DEVELOP PATIENT SPECIFIC PLAN OF CARE THAT INCLUDES PATIENT GOAL FOR HOME HEALTH. PLAN OF CARE TO INCLUDE 3 PRN VISIT(S) FOR OASIS DATA COLLECTION/COMPREHENSIVE ASSESSMENT AT TIMEPOINTS PER FEDERAL REGULATIONS. THIS INCLUDES VISITS FOR MICHELLE, RECERT, SCIC, AND/OR DC. [code = SKILLED NURSE TO EVALUATE PATIENT, IDENTIFY PRIMARY AND CO-MORBID CONDITIONS CODED PER CODING GUIDELINES, AND DEVELOP PATIENT SPECIFIC PLAN OF CARE THAT INCLUDES PATIENT GOAL FOR HOME HEALTH. PLAN OF CARE TO INCLUDE 3 PRN VISIT(S) FOR OASIS DATA COLLECTION/COMPREHENSIVE ASSESSMENT AT TIMEPOINTS PER FEDERAL REGULATIONS. THIS INCLUDES VISITS FOR MICHELLE, RECERT, SCIC, AND/OR DC.] Future Scheduled Test SKILLED NU RSE TO ASSESS ANXIETY AND PROVIDE ASSISTANCE TO PATIENT FOR UNDERSTANDING AND MANAGEMENT OF FEELINGS. [code = SKILLED NURSE TO ASSESS ANXIETY AND PROVIDE ASSISTANCE TO PATIENT FOR UNDERSTANDING AND MANAGEMENT OF FEELINGS.] Future Scheduled Test SKILLED NU RSE MAY COLLECT URINE SAMPLE FOR URINE REAGENT STRIP TESTING AND/OR URINALYSIS WITH C S 1-3 PRN IF INDICATED FOR SIGNS AND SYMPTOMS OF UTI. IF REAGENT STRIP TEST IS POSITIVE FOR UTI, SKILLED NURSE TO TAKE URINE SAMPLE TO LAB FOR URINE C S AND REPORT RESULTS TO PHYSICIAN. [code = SKILLED NURSE MAY COLLECT URINE SAMPLE FOR URINE REAGENT STRIP TESTING AND/OR URINALYSIS WITH C S 1-3 PRN IF INDICATED FOR SIGNS AND SYMPTOMS OF UTI. IF REAGENT STRIP TEST IS POSITIVE FOR UTI, SKILLED NURSE TO TAKE URINE SAMPLE TO LAB FOR URINE C S AND REPORT RESULTS TO PHYSICIAN.] Future Scheduled Test SKILLED NU RSE TO INSTRUCT PATIENT/CAREGIVER AND PERFORM CARE AND MANAGEMENT OF INDWELLING URINARY CATHETER. [place] CATHETER INSERTION WITH 18 FR CATHETER WITH 10 ML BALLOON VIA STERILE TECHNIQUE, CHANGE Q 4 WEEKS AND PRN FOR LEAKING OR MALFUNCTIONING CATHETER. IRRIGATE URINARY CATHETER WITH 30-60CC NORMAL SALINE PRN BLOCKAGE/LEAKAGE, HEAVY SEDIMENT. 1 - 3 PRN USP VISITS FOR CATHETER CHANGE(S) AND/OR TROUBLESHOOTING. [code = SKILLED NURSE TO INSTRUCT PATIENT/CAREGIVER AND PERFORM CARE AND MANAGEMENT OF INDWELLING URINARY CATHETER. [place] CATHETER INSERTION WITH 18 FR CATHETER WITH 10 ML BALLOON VIA STERILE TECHNIQUE, CHANGE Q 4 WEEKS AND PRN FOR LEAKING OR MALFUNCTIONING CATHETER. IRRIGATE URINARY CATHETER WITH 30-60CC NORMAL SALINE PRN BLOCKAGE/LEAKAGE, HEAVY SEDIMENT. 1 - 3 PRN USP VISITS FOR CATHETER CHANGE(S) AND/OR TROUBLESHOOTING.] Future Scheduled Test SKILLED NU RSE FOR O/A OF RESPIRATORY SYSTEM TO IDENTIFY CHANGES ASSOCIATED WITH EXACERBATION AND TO PROVIDE SKILLED TEACHING ON MANAGEMENT OF EMPHYSEMA RESPIRATORY DISEASE PROCESS. [code = SKILLED NURSE FOR O/A OF RESPIRATORY SYSTEM TO IDENTIFY CHANGES ASSOCIATED WITH EXACERBATION AND TO PROVIDE SKILLED TEACHING ON MANAGEMENT OF EMPHYSEMA RESPIRATORY DISEASE PROCESS.] Future Scheduled Test SKILLED NU RSE FOR O/A AND SKILLED TEACHING RELATED TO SIGNS AND SYMPTOMS OF INFECTION AND INFECTION CONTROL MEASURES. [code = SKILLED NURSE FOR O/A AND SKILLED TEACHING RELATED TO SIGNS AND SYMPTOMS OF INFECTION AND INFECTION CONTROL MEASURES.] Future Scheduled Test SKILLED NU RSE TO INSTRUCT PATIENT/CAREGIVER ON SIGNS AND SYMPTOMS AND METHODS TO MANAGE PARKINSON'S DISEASE PROGRESSION. [code = SKILLED NURSE TO INSTRUCT PATIENT/CAREGIVER ON SIGNS AND SYMPTOMS AND METHODS TO MANAGE PARKINSON'S DISEASE PROGRESSION.] Future Scheduled Test SKILLED NU RSE TO INSTRUCT PATIENT/CAREGIVER ON SIGNS AND SYMPTOMS, RISK FACTORS, COMPLICATIONS, AND MANAGEMENT OF ATRIAL FIBRILLATION. [code = SKILLED NURSE TO INSTRUCT PATIENT/CAREGIVER ON SIGNS AND SYMPTOMS, RISK FACTORS, COMPLICATIONS, AND MANAGEMENT OF ATRIAL FIBRILLATION.] Future Scheduled Test SKILLED NU RSE FOR O/A, TEACHING AND SELF-MANAGEMENT RELATED TO HEART FAILURE. INSTRUCT PATIENT/CAREGIVER ON SIGNS AND SYMPTOMS OF EXACERBATION TO REPORT AND IMPORTANCE OF OBTAINING AND RECORDING DAILY WEIGHT AND/OR MEASUREMENTS. SN OR TRAINED PATIENT/CAREGIVER TO OBTAIN WEIGHT DAILY AND WEIGHT GAIN OF 2 LBS OVERNIGHT OR 5 LBS IN 1 WEEK TO BE REPORTED TO PHYSICIAN/PROVIDER. [code = SKILLED NURSE FOR O/A, TEACHING AND SELF-MANAGEMENT RELATED TO HEART FAILURE. INSTRUCT PATIENT/CAREGIVER ON SIGNS AND SYMPTOMS OF EXACERBATION TO REPORT AND IMPORTANCE OF OBTAINING AND RECORDING DAILY WEIGHT AND/OR MEASUREMENTS. SN OR TRAINED PATIENT/CAREGIVER TO OBTAIN WEIGHT DAILY AND WEIGHT GAIN OF 2 LBS OVERNIGHT OR 5 LBS IN 1 WEEK TO BE REPORTED TO PHYSICIAN/PROVIDER.] Future Scheduled Test PATIENT ESCOBEDO S A RISK OF HOSPITALIZATION AND ED USE. SKILLED NURSE TO ESTABLISH SUPPORT MEASURES TO MINIMIZE RISK OF HOSPITALIZATION AND ED USE, AND INSTRUCT PATIENT/CAREGIVER ON METHODS TO REDUCE AVOIDABLE HOSPITALIZATION AND ED USE. [code = PATIENT HAS A RISK OF HOSPITALIZATION AND ED USE. SKILLED NURSE TO ESTABLISH SUPPORT MEASURES TO MINIMIZE RISK OF HOSPITALIZATION AND ED USE, AND INSTRUCT PATIENT/CAREGIVER ON METHODS TO REDUCE AVOIDABLE HOSPITALIZATION AND ED USE.] Future Scheduled Test SKILLED NU RSE TO PROVIDE INSTRUCTION TO PATIENT/CAREGIVER RELATED TO DISCHARGE PLANNING. [code = SKILLED NURSE TO PROVIDE INSTRUCTION TO PATIENT/CAREGIVER RELATED TO DISCHARGE PLANNING.] Future Scheduled Test SKILLED NU RSE TO PERFORM ENVIRONMENTAL SAFETY RISK ASSESSMENT AND FALL RISK ASSESSMENT AND PROVIDE INSTRUCTION TO IMPLEMENT ENVIRONMENTAL SAFETY AND FALL PREVENTION STRATEGIES THROUGHOUT THE CERTIFICATION PERIOD. SKILLED NURSE WILL MAINTAIN SITUATIONAL AWARENESS AND WILL NOTIFY CLINICAL MICROPALEONTOLOGIST AND PHYSICIAN/PROVIDER WITH ANY CHANGE IN CONDITION. [code = SKILLED NURSE TO PERFORM ENVIRONMENTAL SAFETY RISK ASSESSMENT AND FALL RISK ASSESSMENT AND PROVIDE INSTRUCTION TO IMPLEMENT ENVIRONMENTAL SAFETY AND FALL PREVENTION STRATEGIES THROUGHOUT THE CERTIFICATION PERIOD. SKILLED NURSE WILL MAINTAIN SITUATIONAL AWARENESS AND WILL NOTIFY CLINICAL MICROPALEONTOLOGIST AND PHYSICIAN/PROVIDER WITH ANY CHANGE IN CONDITION.] Future Scheduled Test SKILLED NU RSE FOR OBSERVATION AND ASSESSMENT OF PATIENT S PAIN LEVEL AND EFFECTIVENESS OF PAIN MANAGEMENT REGIMEN. SKILLED NURSE TO INSTRUCT PATIENT/CAREGIVER REGARDING PHARMACOLOGIC AND NON-PHARMACOLOGIC PAIN CONTROL MEASURES. SKILLED NURSE TO REPORT TO PHYSICIAN IF PAIN LEVEL IS OUTSIDE OF ESTABLISHED PARAMETERS. [code = SKILLED NURSE FOR OBSERVATION AND ASSESSMENT OF PATIENT S PAIN LEVEL AND EFFECTIVENESS OF PAIN MANAGEMENT REGIMEN. SKILLED NURSE TO INSTRUCT PATIENT/CAREGIVER REGARDING PHARMACOLOGIC AND NON-PHARMACOLOGIC PAIN CONTROL MEASURES. SKILLED NURSE TO REPORT TO PHYSICIAN IF PAIN LEVEL IS OUTSIDE OF ESTABLISHED PARAMETERS.] Future Scheduled Test SKILLED NU RSE TO ASSESS PATIENT'S SKIN INTEGRITY AND INSTRUCT PATIENT/CAREGIVER ON MEASURES TO PREVENT PRESSURE ULCERS. [code = SKILLED NURSE TO ASSESS PATIENT'S SKIN INTEGRITY AND INSTRUCT PATIENT/CAREGIVER ON MEASURES TO PREVENT PRESSURE ULCERS.] Future Scheduled Test SKILLED NU RSE TO PROVIDE ASSESSMENT AND TEACHING/REINFORCEMENT OF MANAGEMENT OF DEPRESSION INCLUDING DISEASE PROCESS, MEDICATION MANAGEMENT, COPING SKILLS AND IDENTIFY CHANGES ASSOCIATED WITH DEPRESSIVE DISORDERS FOR EARLY INTERVENTION. [code = SKILLED NURSE TO PROVIDE ASSESSMENT AND TEACHING/REINFORCEMENT OF MANAGEMENT OF DEPRESSION INCLUDING DISEASE PROCESS, MEDICATION MANAGEMENT, COPING SKILLS AND IDENTIFY CHANGES ASSOCIATED WITH DEPRESSIVE DISORDERS FOR EARLY INTERVENTION.] Future Scheduled Test CLINICAL S JACKLYN (SOC/RECERT, 10 DAY, 60 DAY):RECERT THE PATIENT IS RECEIVING HOMECARE DUE TO NEW ONSET/EXACERBATION OF: PARKINSONS RECENT HOSPITALIZATION/INPATIENT ADMISSION RELATED TO: NEW OR CHANGED MEDICATIONS PERTINENT TO THE PLAN OF CARE: LASIX PATIENT LIVING SITUATION/CAREGIVER STATUS: [facility] SP[facility]SE SUMMARIZE SKILLED NEED: DISEASE MANAGEMENT AND TEACHING, FOKEY CATHETER MANAGEMENT [code = CLINICAL SUMMARY (SOC/RECERT, 10 DAY, 60 DAY):RECERT THE PATIENT IS RECEIVING HOMECARE DUE TO NEW ONSET/EXACERBATION OF: PARKINSONS RECENT HOSPITALIZATION/INPATIENT ADMISSION RELATED TO: NEW OR CHANGED MEDICATIONS PERTINENT TO THE PLAN OF CARE: GOMEZ PATIENT LIVING SITUATION/CAREGIVER STATUS: LIVES IN [place] WITH SPOUSE SUMMARIZE SKILLED NEED: DISEASE MANAGEMENT AND TEACHING, FOKEY CATHETER MANAGEMENT] Future Scheduled Test SKILLED NU RSE TO REVIEW PATIENT MEDICATIONS (PRESCRIPTION/OTC). INSTRUCT PATIENT/CAREGIVER ON ALL MEDICATIONS INCLUDING PURPOSE, WHEN TO TAKE, IMPORTANCE OF MEDICATION ADHERENCE, MONITORING OF EFFECTIVENESS, ADVERSE DRUG REACTIONS, POSSIBLE SIDE EFFECTS, AND WHEN TO NOTIFY AGENCY OR PHYSICIAN/PROVIDER OF ANY CONCERNS. [code = SKILLED NURSE TO REVIEW PATIENT MEDICATIONS (PRESCRIPTION/OTC). INSTRUCT PATIENT/CAREGIVER ON ALL MEDICATIONS INCLUDING PURPOSE, WHEN TO TAKE, IMPORTANCE OF MEDICATION ADHERENCE, MONITORING OF EFFECTIVENESS, ADVERSE DRUG REACTIONS, POSSIBLE SIDE EFFECTS, AND WHEN TO NOTIFY AGENCY OR PHYSICIAN/PROVIDER OF ANY CONCERNS.] Goal Patient Goal - R EMAIN HOME WITHOUT S/S INFECTION Goal 2024-07-18 Patient Goal - R EMAIN HOME WITHOUT S/S INFECTION Goal 2024-10-26 Patient Goal - R EMAIN HOME WITHOUT S/S INFECTION Goal 2024-08-25 Patient Goal - R EMAIN HOME WITHOUT S/S INFECTION Goal 2024-11-25 Patient Goal - R EMAIN HOME WITHOUT S/S INFECTION Goal 2025-02-22 Patient Goal - R EMAIN HOME WITHOUT S/S INFECTION Goal 2024-12-24 Patient Goal - R EMAIN HOME WITHOUT S/S INFECTION Goal Provider Goal - A PLAN OF CARE WILL BE ESTABLISHED THAT MEETS PATIENT'S USP NEEDS AND INCLUDES PATIENT GOAL FOR HOME HEALTH. Goal Provider Goal - SYMPTOMS OF ANXIETY ARE IDENTIFIED AND INTERVENTIONS INITIATED TO ENABLE PATIENT TO UNDERSTAND AND MANAGE FEELINGS THROUGHOUT EPISODE. Goal Provider Goal - URINE SPECIMEN WILL BE OBTAINED PRN FOR SIGNS AND SYMPTOMS OF UTI AND RESULTS WILL BE REPORTED TO PHYSICIAN THROUGHOUT THE CERTIFICATION PERIOD. Goal Provider Goal - PATIENT WILL VERBALIZE TOLERANCE OF CATHETER CHANGE AND KNOWLEDGE OF REQUIRED CARE TO MANAGE INDWELLING URINARY CATHETER WITHOUT COMPLICATIONS BY THE END OF THE CERTIFICATION PERIOD. Goal Provider Goal - PATIENT/CAREGIVER WILL VERBALIZE/DEMONSTRATE MANAGEMENT OF EMPHYSEMA RESPIRATORY DISEASE PROCESS. CHANGES IN RESPIRATORY STATUS WILL BE IDENTIFIED AND REPORTED TO PHYSICIAN FOR PROMPT INTERVENTION THROUGHOUT THE CERTIFICATION PERIOD. Goal Provider Goal - PATIENT/CAREGIVER WILL VERBALIZE/DEMONSTRATE UNDERSTANDING OF S/S OF INFECTION AND INFECTION CONTROL MEASURES. SIGNS AND SYMPTOMS OF INFECTION WILL BE IDENTIFIED AND PHYSICIAN NOTIFIED FOR PROMPT INTERVENTION THROUGHOUT THE CERTIFICATION PERIOD. Goal Provider Goal - PATIENT/CAREGIVER WILL VERBALIZE SIGNS AND SYMPTOMS OF PARKINSON'S DISEASE AND DEMONSTRATE METHODS TO MANAGE DISEASE PROCESS BY END OF CERTIFICATION PERIOD. Goal Provider Goal - PATIENT/CAREGIVER WILL VERBALIZE UNDERSTANDING OF SIGNS AND SYMPTOMS, COMPLICATIONS, AND MANAGEMENT OF ATRIAL FIBRILLATION THROUGHOUT THE CERTIFICATION PERIOD. Goal Provider Goal - PATIENT/CAREGIVER WILL VERBALIZE/DEMONSTRATE KNOWLEDGE AND MANAGEMENT OF HEART FAILURE DISEASE PROCESS BY END OF EPISODE. Goal Provider Goal - PATIENT WILL HAVE SUPPORT MEASURES ESTABLISHED TO PREVENT HOSPITALIZATION AND ED USE AND PATIENT/CAREGIVER WILL VERBALIZE/DEMONSTRATE METHODS TO REDUCE AVOIDABLE HOSPITALIZATION AND ED USE BY END OF EPISODE. Goal Provider Goal - PATIENT/CAREGIVER WILL VERBALIZE UNDERSTANDING OF DISCHARGE PLANNING INSTRUCTIONS BY DATE OF DISCHARGE. Goal Provider Goal - PATIENT/CAREGIVER WILL VERBALIZE/DEMONSTRATE EFFECTIVE ENVIRONMENTAL SAFETY AND FALL PREVENTION STRATEGIES, WILL REMAIN SAFE IN THE COMMUNITY, AND WILL BE FREE OF DANGER TO SELF AND OTHERS THROUGHOUT THE CERTIFICATION PERIOD. Goal Provider Goal - PATIENT/CAREGIVER WILL DEMONSTRATE UNDERSTANDING OF PHARMACOLOGIC AND NONPHARMACOLOGIC PAIN CONTROL MEASURES AND PATIENT WILL HAVE IMPROVEMENT IN PAIN INTERFERING WITH ACTIVITY EVIDENCED BY PAIN AT A LEVEL THAT IS ACCEPTABLE TO THE PATIENT AND PAIN LEVEL WITHIN ESTABLISHED PARAMETERS BY END OF CERTIFICATION PERIOD. Goal Provider Goal - PATIENT/CAREGIVER WILL VERBALIZE UNDERSTANDING OF PRESSURE ULCER PREVENTION BY END OF THE EPISODE. Goal Provider Goal - PATIENT/CAREGIVER WILL VERBALIZE/DEMONSTRATE UNDERSTANDING OF THE MANAGEMENT OF DEPRESSION THROUGHOUT THE CERTIFICATION PERIOD AND SYMPTOMS ARE IDENTIFIED AND MANAGED TO MAINTAIN PATIENT SAFETY IN THE HOME. Goal Provider Goal - PATIENT WILL REMAIN SAFE, FREE FROM HOSPITALIZATION, AND ADHERE TO THE SKILLED NURSE S PLAN OF CARE THROUGHOUT THE CERTIFICATION PERIOD. Goal Provider Goal - PATIENT/CAREGIVER WILL VERBALIZE UNDERSTANDING OF EDUCATION PROVIDED ON MEDICATIONS BY THE END OF THE CERTIFICATION PERIOD. Encounters Start Date/Time End Date/Time Encounter Type Admission Type Attending [facility] Care Department Encounter ID Discharge Date Discharge Status Discharge Condition Discharge Reason Percent Goals Met 2025-02-24 00:00:00 2025-04-24 00:00:00 Outpatient RECERTIFIC ATION DEMETRI SLAUGHTER [facility] [id number] 6.25
--- OUTSIDE RECORDS SUMMARY | 2025-04-23 19:00 | XMS_ITS | Clinical Summary ---
Author Organization Unknown Care Team Providers Care Soaking Room Operator Name Role Phone DARIAN DANGELO, ANYA Unavailable Unavaila aleisha CHRISTENSEN CAR BUILDER/ASSISTANT GM OF CONTENT & DELIVERY, RENAN Unavailable Unava susie SLAUGHTER RN, DEMETRI Unavailable Unavailable Payers Payer Name Policy Type Policy Number Effective Date Expira tion Date MEDICARE - [facility] [place] - PD [id number] Problems Condition Name Condition Details Condition Category [...] OF URINARY DEVICE Active 04-28 00:00: 00 NURSING HOME (CURRENT) USE OF ANTICOAGULAN TS Active 04-28 [...] 01-11 00:00: 00 01-18 23:59 :00 No [id number] 1 tablet 2 TIMES DAILY 1 tablet 2 TIMES DAILY (route: oral) Med Classific ation: Anti-Infe ctive Agents lactulose 10 gram/15 mL oral solution 01-11 00:00: 00 04-01 23:59 :00 No [id number] 30 g DAILY 30 g DAILY (route: oral) Med Classific ation: Gastroint estinal Therapy Agents Rytary 36.25 mg-145 mg capsule,ext ended release 13 00:00: 00 04-01 23:59 :00 No [id number] 4 capsule 4 TIMES DAILY 4 capsule 4 TIMES DAILY (route: oral) Med Classific ation: Central Nervous System Agents Breo Ellipta 100 mcg-25 mcg/dose powder for inhalation - 00:00: 00 04-01 23:59 :00 No [id number] 1 inhalat ion ONCE DAILY 1 inhalation ONCE DAILY (route: inhalation ) Med Classific ation: Respirato ry Therapy Agents mirtazapine 45 mg tablet 12-12 00:00: 00 04-01 23:59 :00 No [id number] 1 tablet DAILY 1 tablet DAILY (route: oral) Med Classific ation: Central Nervous System Agents docusate sodium 100 mg capsule 16 00:00: 00 04-01 23:59 :00 No [id number] 1 capsule 2 TIMES DAILY 1 capsule 2 TIMES DAILY (route: oral) Med Classific ation: Gastroint estinal Therapy Agents Eliquis 5 mg tablet 10-26 00:00: 00 04-01 23:59 :00 No [id number] 1 tablet 2 TIMES DAILY 1 tablet 2 TIMES DAILY (route: oral) Med Classific ation: Hematolog ical Agents ferrous sulfate 325 mg (65 mg iron) tablet 10-26 00:00: 00 04-01 23:59 :00 No [id number] 1 tablet DAILY 1 tablet DAILY (route: oral) Med Classific ation: Electroly te Balance-N utritiona l Products finasteride 5 mg tablet 10-26 00:00: 00 04-01 23:59 :00 No [id number] 1 tablet DAILY 1 tablet DAILY (route: oral) Med Classific ation: Genitouri nary Therapy furosemide 40 mg tablet 10-26 00:00: 00 04-01 23:59 :00 No [id number] 1 tablet 2 TIMES DAILY 1 tablet 2 TIMES DAILY (route: oral) Med Classific ation: Cardiovas cular Therapy Agents magnesium 400 mg (as magnesium oxide) tablet 10-26 00:00: 00 04-01 23:59 :00 No [id number] 1 tablet DAILY 1 tablet DAILY (route: oral) Med Classific ation: Electroly te Balance-N utritiona l Products prednisolon e acetate 1 % eye drops,suspe nsion 10-26 00:00: 00 04-01 23:59 :00 No [id number] 1 drops 3 TIMES DAILY 1 drops 3 TIMES DAILY (route: ophthalmic (eye)) Med Classific ation: Ophthalmi c Agents ropinirole 0.25 mg tablet 09-28 00:00: 00 04-01 23:59 :00 No [id number] Per instruc tions DIRECTED Per instructio ns DIRECTED (route: oral) Med Classific ation: Central Nervous System Agents venlafaxine ER 225 mg tablet,exte nded release 24 hr 10-26 00:00: 00 04-01 23:59 :00 No [id number] 1 tablet DAILY 1 tablet DAILY (route: oral) Med Classific ation: Central Nervous System Agents Vitamin D3 125 mcg (5,000 unit) tablet 09-28 00:00: 00 04-01 23:59 :00 No [id number] 1 tablet DAILY 1 tablet DAILY (route: oral) Med Classific ation: Electroly te Balance-N utritiona l Products clonazepam 0.5 mg tablet 2023-04 0-11 00:00: 00 04-01 23:59 :00 No [id number] Per instruc tions BEDTIME Per instructio ns BEDTIME (route: oral) Med Classific ation: Central Nervous System Agents acetaminoph en 325 mg tablet 04-30 00:00: 00 06-27 23:59 :00 No [id number] 2 tablet EVERY 4 HOURS 2 tablet EVERY 4 HOURS (route: oral) Med Classific ation: Analgesic , Anti-infl ammatory or Antipyret ic albuterol sulfate HFA 90 mcg/actuati on aerosol inhaler 04-30 00:00: 00 06-27 23:59 :00 No [id number] 2 puff EVERY 6 HOURS 2 puff EVERY 6 HOURS (route: inhalation ) Med Classific ation: Respirato ry Therapy Agents amantadine HCl 100 mg tablet 04-30 00:00: 00 06-27 23:59 :00 No [id number] 1 tablet DAILY 1 tablet DAILY (route: oral) Med Classific ation: Central Nervous System Agents amoxicillin 500 mg capsule 04-30 00:00: 00 06-27 23:59 :00 No [id number] 4 capsule DIRECTED 4 capsule DIRECTED (route: oral) Med Classific ation: Anti-Infe ctive Agents Breo Ellipta 100 mcg-25 mcg/dose powder for inhalation 04-30 00:00: 00 06-27 23:59 :00 No [id number] 1 inhalat ion DAILY 1 inhalation DAILY (route: inhalation ) Med Classific ation: Respirato ry Therapy Agents clonazepam 0.5 mg tablet 04-30 00:00: 00 06-27 23:59 :00 No [id number] 1 tablet BEDTIME 1 tablet BEDTIME (route: oral) Med Classific ation: Central Nervous System Agents docusate sodium 100 mg capsule 04-30 00:00: 00 06-27 23:59 :00 No [id number] 1 capsule 2 TIMES DAILY 1 capsule 2 TIMES DAILY (route: oral) Med Classific ation: Gastroint estinal Therapy Agents Eliquis 5 mg tablet 04-30 00:00: 00 06-27 23:59 :00 No [id number] 1 tablet 2 TIMES DAILY 1 tablet 2 TIMES DAILY (route: oral) Med Classific ation: Hematolog ical Agents finasteride 5 mg tablet 04-30 00:00: 00 06-27 23:59 :00 No [id number] 1 tablet DAILY 1 tablet DAILY (route: oral) Med Classific ation: Genitouri nary Therapy gabapentin 100 mg capsule 04-30 00:00: 00 06-27 23:59 :00 No [id number] 1 capsule DAILY 1 capsule DAILY (route: oral) Med Classific ation: Central Nervous System Agents gabapentin 300 mg capsule - 00:00: 00 06-27 23:59 :00 No [id number] 1 capsule BEDTIME 1 capsule BEDTIME (route: oral) Med Classific ation: Central Nervous System Agents mirtazapine 45 mg tablet - 00:00: 00 06-27 23:59 :00 No [id number] 1 tablet BEDTIME 1 tablet BEDTIME (route: oral) Med Classific ation: Central Nervous System Agents pantoprazol e 40 mg tablet,baltazar yed release - 00:00: 00 06-27 23:59 :00 No [id number] 1 tablet DAILY 1 tablet DAILY (route: oral) Med Classific ation: Gastroint estinal Therapy Agents ropinirole 0.25 mg tablet 04-30 00:00: 00 06-27 23:59 :00 No [id number] 1-4 tablet DIRECTED 1-4 tablet DIRECTED (route: oral) Med Classific ation: Central Nervous System Agents Rytary 36.25 mg-145 mg capsule,ext ended release 04-30 00:00: 00 06-27 23:59 :00 No [id number] 2 capsule 4 TIMES DAILY 2 capsule 4 TIMES DAILY (route: oral) Med Classific ation: Central Nervous System Agents venlafaxine ER 225 mg tablet,exte nded release 24 hr - 00:00: 00 06-27 23:59 :00 No [id number] 1 tablet BEDTIME 1 tablet BEDTIME (route: oral) Med Classific ation: Central Nervous System Agents amantadine HCl 100 mg capsule 3-04 00:00: 00 Yes [id number] 1 capsule DAILY 1 capsule DAILY (route: oral) Med Classific ation: Central Nervous System Agents clonazepam 0.5 mg tablet 3-04 00:00: 00 Yes [id number] 1 tablet BEDTIME 1 tablet BEDTIME (route: oral) Med Classific ation: Central Nervous System Agents Eliquis 5 mg tablet 3-04 00:00: 00 Yes [id number] 1 tablet 2 TIMES DAILY 1 tablet 2 TIMES DAILY (route: oral) Med Classific ation: Hematolog ical Agents finasteride 5 mg tablet 06-29 00:00: 00 Yes [id number] 1 tablet DAILY 1 tablet DAILY (route: oral) Med Classific ation: Genitouri nary Therapy gabapentin 100 mg capsule 06-29 00:00: 00 Yes [id number] 1 capsule DAILY 1 capsule DAILY (route: oral) Med Classific ation: Central Nervous System Agents gabapentin 300 mg capsule 06-29 00:00: 00 Yes [id number] 1 capsule BEDTIME 1 capsule BEDTIME (route: oral) Med Classific ation: Central Nervous System Agents mirtazapine 45 mg tablet 06-29 00:00: 00 Yes [id number] 1 tablet DAILY 1 tablet DAILY (route: oral) Med Classific ation: Central Nervous System Agents pantoprazol e 40 mg tablet,baltazar yed release 06-29 00:00: 00 10-21 23:59 :00 No [id number] 1 tablet DAILY 1 tablet DAILY (route: oral) Med Classific ation: Gastroint estinal Therapy Agents ropinirole 0.25 mg tablet 06-29 00:00: 00 Yes [id number] 2 tablet DAILY 2 tablet DAILY (route: oral) Med Classific ation: Central Nervous System Agents Rytary 36.25 mg-145 mg capsule,ext ended release 06-29 00:00: 00 Yes [id number] 3 capsule 4 TIMES DAILY 3 capsule 4 TIMES DAILY (route: oral) Med Classific ation: Central Nervous System Agents venlafaxine ER 225 mg tablet,exte nded release 24 hr 06-29 00:00: 00 Yes [id number] 1 tablet DAILY 1 tablet DAILY (route: oral) Med Classific ation: Central Nervous System Agents albuterol sulfate HFA 90 mcg/actuati on aerosol inhaler 06-29 00:00: 00 Yes [id number] 2 puff EVERY 6 HOURS 2 puff EVERY 6 HOURS (route: inhalation ) Med Classific ation: Respirato ry Therapy Agents Breo Ellipta 100 mcg-25 mcg/dose powder for inhalation 3-04 00:00: 00 Yes [id number] 1 inhalat ion DAILY 1 inhalation DAILY (route: inhalation ) Med Classific ation: Respirato ry Therapy Agents pantoprazol e 40 mg tablet,baltazar yed release 3- 00:00: 00 10-21 23:59 :00 No [id number] 1 tablet 2 TIMES DAILY 1 tablet 2 TIMES DAILY (route: oral) Med Classific ation: Gastroint estinal Therapy Agents fluconazole 200 mg tablet - 00:00: 00 Yes [id number] 200 mg DAILY 200 mg DAILY (route: oral) Alternate Route: SUBLINGUA L. Med Classific ation: Anti-Infe ctive Agents Carafate 100 mg/mL oral suspension 10-26 00:00: 00 Yes [id number] 10 mL 4 TIMES DAILY 10 mL 4 TIMES DAILY (route: oral) Med Classific ation: Gastroint estinal Therapy Agents Voquezna 20 mg tablet 10-26 00:00: 00 12-03 00:58 :03.3 47 No [id number] 1 tablet 2 TIMES DAILY 1 tablet 2 TIMES DAILY (route: oral) Med Classific ation: Gastroint estinal Therapy Agents Voquezna 20 mg tablet 10-21 00:00: 00 Yes [id number] 1 tablet 2 TIMES DAILY 1 tablet [...] BLOCKAGE/LEAKAGE, HEAVY SEDIMENT. 1 - 3 PRN FDC VISITS FOR CATHETER CHANGE(S) AND/OR TROUBLESHOOTING. [code = SKILLED NURSE TO INSTRUCT PATIENT/CAREGIVER AND PERFORM CARE AND MANAGEMENT OF INDWELLING URINARY CATHETER. [place] CATHETER INSERTION WITH 18 FR CATHETER WITH 10 ML BALLOON VIA STERILE TECHNIQUE, CHANGE Q 4 WEEKS AND PRN FOR LEAKING OR MALFUNCTIONING CATHETER. IRRIGATE URINARY CATHETER WITH 30-60CC NORMAL SALINE PRN BLOCKAGE/LEAKAGE, HEAVY SEDIMENT. 1 - 3 PRN FDC VISITS FOR CATHETER CHANGE(S) AND/OR TROUBLESHOOTING.] Future [...] MAINTAIN SITUATIONAL AWARENESS AND WILL NOTIFY CLINICAL TRAFFIC CONTROL TECHNICIAN AND PHYSICIAN/PROVIDER WITH ANY CHANGE IN CONDITION. [code = SKILLED NURSE TO PERFORM ENVIRONMENTAL SAFETY RISK ASSESSMENT AND FALL RISK ASSESSMENT AND PROVIDE INSTRUCTION TO IMPLEMENT ENVIRONMENTAL SAFETY AND FALL PREVENTION STRATEGIES THROUGHOUT THE CERTIFICATION PERIOD. SKILLED NURSE WILL MAINTAIN SITUATIONAL AWARENESS AND WILL NOTIFY CLINICAL TRAFFIC CONTROL TECHNICIAN AND PHYSICIAN/PROVIDER WITH ANY CHANGE IN CONDITION.] [...] LASIX PATIENT LIVING SITUATION/CAREGIVER STATUS: [facility] SUMMAR[facility] SKILLED NEED: DISEASE MANAGEMENT [...] CARE WILL BE ESTABLISHED THAT MEETS PATIENT'S FDC NEEDS AND INCLUDES PATIENT GOAL FOR HOME [...] End Date/Time Encounter Type Admission Type Attending [facility] Care Department Encounter ID Discharge Date Discharge Status Discharge Condition Discharge Reason Percent Goals Met 2025-02-24 00:00:00 2025-04-24 00:00:00 Outpatient RECERTIFIC ATION DEMETRI SLAUGHTER [facility] [id number] 6.25
--- OUTSIDE RECORDS SUMMARY | 2025-04-23 19:00 | XMS_ITS | Clinical Summary ---
Author Organization Unknown Care Team Providers Care Zoning Administrator Name Role Phone DARIAN DANGELO, ANYA Unavailable Unavaila aleisha CHRISTENSEN SHINGLER/MANUSCRIPTS CURATOR, RENNA Unavailable Unava susie SLAUGHTER RN, DEMETRI Unavailable Unavailable Payers Payer Name Policy Type Policy Number Effective Date Expira tion Date MEDICARE - [facility] - PD [id number] Problems Condition Name Condition Details Condition Category [...] OF URINARY DEVICE Active 04-28 00:00: 00 RESIDENTIAL (CURRENT) USE OF ANTICOAGULAN TS Active 04-28 [...] 01-11 00:00: 00 01-18 23:59 :00 No [id number] 1 tablet 2 TIMES DAILY 1 tablet 2 TIMES DAILY (route: oral) Med Classific ation: Anti-Infe ctive Agents lactulose 10 gram/15 mL oral solution 01-11 00:00: 00 04-01 23:59 :00 No [id number] 30 g DAILY 30 g DAILY (route: oral) Med Classific ation: Gastroint estinal Therapy Agents Rytary 36.25 mg-145 mg capsule,ext ended release 13 00:00: 00 04-01 23:59 :00 No [id number] 4 capsule 4 TIMES DAILY 4 capsule 4 TIMES DAILY (route: oral) Med Classific ation: Central Nervous System Agents Breo Ellipta 100 mcg-25 mcg/dose powder for inhalation - 00:00: 00 04-01 23:59 :00 No [id number] 1 inhalat ion ONCE DAILY 1 inhalation ONCE DAILY (route: inhalation ) Med Classific ation: Respirato ry Therapy Agents mirtazapine 45 mg tablet 12-12 00:00: 00 04-01 23:59 :00 No [id number] 1 tablet DAILY 1 tablet DAILY (route: oral) Med Classific ation: Central Nervous System Agents docusate sodium 100 mg capsule 16 00:00: 00 04-01 23:59 :00 No [id number] 1 capsule 2 TIMES DAILY 1 capsule 2 TIMES DAILY (route: oral) Med Classific ation: Gastroint estinal Therapy Agents Eliquis 5 mg tablet 10-26 00:00: 00 04-01 23:59 :00 No [id number] 1 tablet 2 TIMES DAILY 1 tablet 2 TIMES DAILY (route: oral) Med Classific ation: Hematolog ical Agents ferrous sulfate 325 mg (65 mg iron) tablet 10-26 00:00: 00 04-01 23:59 :00 No [id number] 1 tablet DAILY 1 tablet DAILY (route: oral) Med Classific ation: Electroly te Balance-N utritiona l Products finasteride 5 mg tablet 10-26 00:00: 00 04-01 23:59 :00 No [id number] 1 tablet DAILY 1 tablet DAILY (route: oral) Med Classific ation: Genitouri nary Therapy furosemide 40 mg tablet 10-26 00:00: 00 04-01 23:59 :00 No [id number] 1 tablet 2 TIMES DAILY 1 tablet 2 TIMES DAILY (route: oral) Med Classific ation: Cardiovas cular Therapy Agents magnesium 400 mg (as magnesium oxide) tablet 10-26 00:00: 00 04-01 23:59 :00 No [id number] 1 tablet DAILY 1 tablet DAILY (route: oral) Med Classific ation: Electroly te Balance-N utritiona l Products prednisolon e acetate 1 % eye drops,suspe nsion 10-26 00:00: 00 04-01 23:59 :00 No [id number] 1 drops 3 TIMES DAILY 1 drops 3 TIMES DAILY (route: ophthalmic (eye)) Med Classific ation: Ophthalmi c Agents ropinirole 0.25 mg tablet 09-28 00:00: 00 04-01 23:59 :00 No [id number] Per instruc tions DIRECTED Per instructio ns DIRECTED (route: oral) Med Classific ation: Central Nervous System Agents venlafaxine ER 225 mg tablet,exte nded release 24 hr 10-26 00:00: 00 04-01 23:59 :00 No [id number] 1 tablet DAILY 1 tablet DAILY (route: oral) Med Classific ation: Central Nervous System Agents Vitamin D3 125 mcg (5,000 unit) tablet 09-28 00:00: 00 04-01 23:59 :00 No [id number] 1 tablet DAILY 1 tablet DAILY (route: oral) Med Classific ation: Electroly te Balance-N utritiona l Products clonazepam 0.5 mg tablet 2023-04 0-11 00:00: 00 04-01 23:59 :00 No [id number] Per instruc tions BEDTIME Per instructio ns BEDTIME (route: oral) Med Classific ation: Central Nervous System Agents acetaminoph en 325 mg tablet 04-30 00:00: 00 06-27 23:59 :00 No [id number] 2 tablet EVERY 4 HOURS 2 tablet EVERY 4 HOURS (route: oral) Med Classific ation: Analgesic , Anti-infl ammatory or Antipyret ic albuterol sulfate HFA 90 mcg/actuati on aerosol inhaler 04-30 00:00: 00 06-27 23:59 :00 No [id number] 2 puff EVERY 6 HOURS 2 puff EVERY 6 HOURS (route: inhalation ) Med Classific ation: Respirato ry Therapy Agents amantadine HCl 100 mg tablet 04-30 00:00: 00 06-27 23:59 :00 No [id number] 1 tablet DAILY 1 tablet DAILY (route: oral) Med Classific ation: Central Nervous System Agents amoxicillin 500 mg capsule 04-30 00:00: 00 06-27 23:59 :00 No [id number] 4 capsule DIRECTED 4 capsule DIRECTED (route: oral) Med Classific ation: Anti-Infe ctive Agents Breo Ellipta 100 mcg-25 mcg/dose powder for inhalation 04-30 00:00: 00 06-27 23:59 :00 No [id number] 1 inhalat ion DAILY 1 inhalation DAILY (route: inhalation ) Med Classific ation: Respirato ry Therapy Agents clonazepam 0.5 mg tablet 04-30 00:00: 00 06-27 23:59 :00 No [id number] 1 tablet BEDTIME 1 tablet BEDTIME (route: oral) Med Classific ation: Central Nervous System Agents docusate sodium 100 mg capsule 04-30 00:00: 00 06-27 23:59 :00 No [id number] 1 capsule 2 TIMES DAILY 1 capsule 2 TIMES DAILY (route: oral) Med Classific ation: Gastroint estinal Therapy Agents Eliquis 5 mg tablet 04-30 00:00: 00 06-27 23:59 :00 No [id number] 1 tablet 2 TIMES DAILY 1 tablet 2 TIMES DAILY (route: oral) Med Classific ation: Hematolog ical Agents finasteride 5 mg tablet 04-30 00:00: 00 06-27 23:59 :00 No [id number] 1 tablet DAILY 1 tablet DAILY (route: oral) Med Classific ation: Genitouri nary Therapy gabapentin 100 mg capsule 04-30 00:00: 00 06-27 23:59 :00 No [id number] 1 capsule DAILY 1 capsule DAILY (route: oral) Med Classific ation: Central Nervous System Agents gabapentin 300 mg capsule - 00:00: 00 06-27 23:59 :00 No [id number] 1 capsule BEDTIME 1 capsule BEDTIME (route: oral) Med Classific ation: Central Nervous System Agents mirtazapine 45 mg tablet - 00:00: 00 06-27 23:59 :00 No [id number] 1 tablet BEDTIME 1 tablet BEDTIME (route: oral) Med Classific ation: Central Nervous System Agents pantoprazol e 40 mg tablet,baltazar yed release - 00:00: 00 06-27 23:59 :00 No [id number] 1 tablet DAILY 1 tablet DAILY (route: oral) Med Classific ation: Gastroint estinal Therapy Agents ropinirole 0.25 mg tablet 04-30 00:00: 00 06-27 23:59 :00 No [id number] 1-4 tablet DIRECTED 1-4 tablet DIRECTED (route: oral) Med Classific ation: Central Nervous System Agents Rytary 36.25 mg-145 mg capsule,ext ended release 04-30 00:00: 00 06-27 23:59 :00 No [id number] 2 capsule 4 TIMES DAILY 2 capsule 4 TIMES DAILY (route: oral) Med Classific ation: Central Nervous System Agents venlafaxine ER 225 mg tablet,exte nded release 24 hr - 00:00: 00 06-27 23:59 :00 No [id number] 1 tablet BEDTIME 1 tablet BEDTIME (route: oral) Med Classific ation: Central Nervous System Agents amantadine HCl 100 mg capsule 3-04 00:00: 00 Yes [id number] 1 capsule DAILY 1 capsule DAILY (route: oral) Med Classific ation: Central Nervous System Agents clonazepam 0.5 mg tablet 3-04 00:00: 00 Yes [id number] 1 tablet BEDTIME 1 tablet BEDTIME (route: oral) Med Classific ation: Central Nervous System Agents Eliquis 5 mg tablet 3-04 00:00: 00 Yes [id number] 1 tablet 2 TIMES DAILY 1 tablet 2 TIMES DAILY (route: oral) Med Classific ation: Hematolog ical Agents finasteride 5 mg tablet 06-29 00:00: 00 Yes [id number] 1 tablet DAILY 1 tablet DAILY (route: oral) Med Classific ation: Genitouri nary Therapy gabapentin 100 mg capsule 06-29 00:00: 00 Yes [id number] 1 capsule DAILY 1 capsule DAILY (route: oral) Med Classific ation: Central Nervous System Agents gabapentin 300 mg capsule 06-29 00:00: 00 Yes [id number] 1 capsule BEDTIME 1 capsule BEDTIME (route: oral) Med Classific ation: Central Nervous System Agents mirtazapine 45 mg tablet 06-29 00:00: 00 Yes [id number] 1 tablet DAILY 1 tablet DAILY (route: oral) Med Classific ation: Central Nervous System Agents pantoprazol e 40 mg tablet,baltazar yed release 06-29 00:00: 00 10-21 23:59 :00 No [id number] 1 tablet DAILY 1 tablet DAILY (route: oral) Med Classific ation: Gastroint estinal Therapy Agents ropinirole 0.25 mg tablet 06-29 00:00: 00 Yes [id number] 2 tablet DAILY 2 tablet DAILY (route: oral) Med Classific ation: Central Nervous System Agents Rytary 36.25 mg-145 mg capsule,ext ended release 06-29 00:00: 00 Yes [id number] 3 capsule 4 TIMES DAILY 3 capsule 4 TIMES DAILY (route: oral) Med Classific ation: Central Nervous System Agents venlafaxine ER 225 mg tablet,exte nded release 24 hr 06-29 00:00: 00 Yes [id number] 1 tablet DAILY 1 tablet DAILY (route: oral) Med Classific ation: Central Nervous System Agents albuterol sulfate HFA 90 mcg/actuati on aerosol inhaler 06-29 00:00: 00 Yes [id number] 2 puff EVERY 6 HOURS 2 puff EVERY 6 HOURS (route: inhalation ) Med Classific ation: Respirato ry Therapy Agents Breo Ellipta 100 mcg-25 mcg/dose powder for inhalation 3-04 00:00: 00 Yes [id number] 1 inhalat ion DAILY 1 inhalation DAILY (route: inhalation ) Med Classific ation: Respirato ry Therapy Agents pantoprazol e 40 mg tablet,baltazar yed release 3- 00:00: 00 10-21 23:59 :00 No [id number] 1 tablet 2 TIMES DAILY 1 tablet 2 TIMES DAILY (route: oral) Med Classific ation: Gastroint estinal Therapy Agents fluconazole 200 mg tablet - 00:00: 00 Yes [id number] 200 mg DAILY 200 mg DAILY (route: oral) Alternate Route: SUBLINGUA L. Med Classific ation: Anti-Infe ctive Agents Carafate 100 mg/mL oral suspension 10-26 00:00: 00 Yes [id number] 10 mL 4 TIMES DAILY 10 mL 4 TIMES DAILY (route: oral) Med Classific ation: Gastroint estinal Therapy Agents Voquezna 20 mg tablet 10-26 00:00: 00 12-03 00:58 :03.3 47 No [id number] 1 tablet 2 TIMES DAILY 1 tablet 2 TIMES DAILY (route: oral) Med Classific ation: Gastroint estinal Therapy Agents Voquezna 20 mg tablet 10-21 00:00: 00 Yes [id number] 1 tablet 2 TIMES DAILY 1 tablet [...] BLOCKAGE/LEAKAGE, HEAVY SEDIMENT. 1 - 3 PRN JAIL VISITS FOR CATHETER CHANGE(S) AND/OR TROUBLESHOOTING. [code = SKILLED NURSE TO INSTRUCT PATIENT/CAREGIVER AND PERFORM CARE AND MANAGEMENT OF INDWELLING URINARY CATHETER. [place] CATHETER INSERTION WITH 18 FR CATHETER WITH 10 ML BALLOON VIA STERILE TECHNIQUE, CHANGE Q 4 WEEKS AND PRN FOR LEAKING OR MALFUNCTIONING CATHETER. IRRIGATE URINARY CATHETER WITH 30-60CC NORMAL SALINE PRN BLOCKAGE/LEAKAGE, HEAVY SEDIMENT. 1 - 3 PRN JAIL VISITS FOR CATHETER CHANGE(S) AND/OR TROUBLESHOOTING.] Future [...] MAINTAIN SITUATIONAL AWARENESS AND WILL NOTIFY CLINICAL CREPE SOLE WIRE BRUSHER AND PHYSICIAN/PROVIDER WITH ANY CHANGE IN CONDITION. [code = SKILLED NURSE TO PERFORM ENVIRONMENTAL SAFETY RISK ASSESSMENT AND FALL RISK ASSESSMENT AND PROVIDE INSTRUCTION TO IMPLEMENT ENVIRONMENTAL SAFETY AND FALL PREVENTION STRATEGIES THROUGHOUT THE CERTIFICATION PERIOD. SKILLED NURSE WILL MAINTAIN SITUATIONAL AWARENESS AND WILL NOTIFY CLINICAL CREPE SOLE WIRE BRUSHER AND PHYSICIAN/PROVIDER WITH ANY CHANGE IN CONDITION.] [...] LASIX PATIENT LIVING SITUATION/CAREGIVER STATUS: [facility]SE SUMMAR[facility] SKILLED NEED: [...] CARE WILL BE ESTABLISHED THAT MEETS PATIENT'S JAIL NEEDS AND INCLUDES PATIENT GOAL FOR HOME [...] 2025-04-24 00:00:00 Outpatient RECERTIFIC ATION DEMETRI SLAUGHTER [facility] [id number] 6.25
--- OUTSIDE RECORDS SUMMARY | 2025-04-23 19:00 | XMS_ITS | Clinical Summary ---
Author Organization Unknown Care Team Providers Care Net Finisher Name Role Phone DARIAN DANGELO, ANYA Unavailable Unavaila aleisha CHRISTENSEN TRAY WORKER/CERTIFIED SOLID WASTE FACILITY OPERATOR, RENAN Unavailable Unava susie SLAUGHTER RN, DEMETRI Unavailable Unavailable Payers Payer Name Policy Type Policy Number Effective Date Expira tion Date MEDICARE - [facility] CT - PD [id number] Problems Condition Name Condition Details Condition Category [...] OF URINARY DEVICE Active 04-28 00:00: 00 SNF (CURRENT) USE OF ANTICOAGULAN TS Active 04-28 [...] 01-11 00:00: 00 01-18 23:59 :00 No [id number] 1 tablet 2 TIMES DAILY 1 tablet 2 TIMES DAILY (route: oral) Med Classific ation: Anti-Infe ctive Agents lactulose 10 gram/15 mL oral solution 01-11 00:00: 00 04-01 23:59 :00 No [id number] 30 g DAILY 30 g DAILY (route: oral) Med Classific ation: Gastroint estinal Therapy Agents Rytary 36.25 mg-145 mg capsule,ext ended release 13 00:00: 00 04-01 23:59 :00 No [id number] 4 capsule 4 TIMES DAILY 4 capsule 4 TIMES DAILY (route: oral) Med Classific ation: Central Nervous System Agents Breo Ellipta 100 mcg-25 mcg/dose powder for inhalation - 00:00: 00 04-01 23:59 :00 No [id number] 1 inhalat ion ONCE DAILY 1 inhalation ONCE DAILY (route: inhalation ) Med Classific ation: Respirato ry Therapy Agents mirtazapine 45 mg tablet 12-12 00:00: 00 04-01 23:59 :00 No [id number] 1 tablet DAILY 1 tablet DAILY (route: oral) Med Classific ation: Central Nervous System Agents docusate sodium 100 mg capsule 16 00:00: 00 04-01 23:59 :00 No [id number] 1 capsule 2 TIMES DAILY 1 capsule 2 TIMES DAILY (route: oral) Med Classific ation: Gastroint estinal Therapy Agents Eliquis 5 mg tablet 10-26 00:00: 00 04-01 23:59 :00 No [id number] 1 tablet 2 TIMES DAILY 1 tablet 2 TIMES DAILY (route: oral) Med Classific ation: Hematolog ical Agents ferrous sulfate 325 mg (65 mg iron) tablet 10-26 00:00: 00 04-01 23:59 :00 No [id number] 1 tablet DAILY 1 tablet DAILY (route: oral) Med Classific ation: Electroly te Balance-N utritiona l Products finasteride 5 mg tablet 10-26 00:00: 00 04-01 23:59 :00 No [id number] 1 tablet DAILY 1 tablet DAILY (route: oral) Med Classific ation: Genitouri nary Therapy furosemide 40 mg tablet 10-26 00:00: 00 04-01 23:59 :00 No [id number] 1 tablet 2 TIMES DAILY 1 tablet 2 TIMES DAILY (route: oral) Med Classific ation: Cardiovas cular Therapy Agents magnesium 400 mg (as magnesium oxide) tablet 10-26 00:00: 00 04-01 23:59 :00 No [id number] 1 tablet DAILY 1 tablet DAILY (route: oral) Med Classific ation: Electroly te Balance-N utritiona l Products prednisolon e acetate 1 % eye drops,suspe nsion 10-26 00:00: 00 04-01 23:59 :00 No [id number] 1 drops 3 TIMES DAILY 1 drops 3 TIMES DAILY (route: ophthalmic (eye)) Med Classific ation: Ophthalmi c Agents ropinirole 0.25 mg tablet 09-28 00:00: 00 04-01 23:59 :00 No [id number] Per instruc tions DIRECTED Per instructio ns DIRECTED (route: oral) Med Classific ation: Central Nervous System Agents venlafaxine ER 225 mg tablet,exte nded release 24 hr 10-26 00:00: 00 04-01 23:59 :00 No [id number] 1 tablet DAILY 1 tablet DAILY (route: oral) Med Classific ation: Central Nervous System Agents Vitamin D3 125 mcg (5,000 unit) tablet 09-28 00:00: 00 04-01 23:59 :00 No [id number] 1 tablet DAILY 1 tablet DAILY (route: oral) Med Classific ation: Electroly te Balance-N utritiona l Products clonazepam 0.5 mg tablet 2023-04 0-11 00:00: 00 04-01 23:59 :00 No [id number] Per instruc tions BEDTIME Per instructio ns BEDTIME (route: oral) Med Classific ation: Central Nervous System Agents acetaminoph en 325 mg tablet 04-30 00:00: 00 06-27 23:59 :00 No [id number] 2 tablet EVERY 4 HOURS 2 tablet EVERY 4 HOURS (route: oral) Med Classific ation: Analgesic , Anti-infl ammatory or Antipyret ic albuterol sulfate HFA 90 mcg/actuati on aerosol inhaler 04-30 00:00: 00 06-27 23:59 :00 No [id number] 2 puff EVERY 6 HOURS 2 puff EVERY 6 HOURS (route: inhalation ) Med Classific ation: Respirato ry Therapy Agents amantadine HCl 100 mg tablet 04-30 00:00: 00 06-27 23:59 :00 No [id number] 1 tablet DAILY 1 tablet DAILY (route: oral) Med Classific ation: Central Nervous System Agents amoxicillin 500 mg capsule 04-30 00:00: 00 06-27 23:59 :00 No [id number] 4 capsule DIRECTED 4 capsule DIRECTED (route: oral) Med Classific ation: Anti-Infe ctive Agents Breo Ellipta 100 mcg-25 mcg/dose powder for inhalation 04-30 00:00: 00 06-27 23:59 :00 No [id number] 1 inhalat ion DAILY 1 inhalation DAILY (route: inhalation ) Med Classific ation: Respirato ry Therapy Agents clonazepam 0.5 mg tablet 04-30 00:00: 00 06-27 23:59 :00 No [id number] 1 tablet BEDTIME 1 tablet BEDTIME (route: oral) Med Classific ation: Central Nervous System Agents docusate sodium 100 mg capsule 04-30 00:00: 00 06-27 23:59 :00 No [id number] 1 capsule 2 TIMES DAILY 1 capsule 2 TIMES DAILY (route: oral) Med Classific ation: Gastroint estinal Therapy Agents Eliquis 5 mg tablet 04-30 00:00: 00 06-27 23:59 :00 No [id number] 1 tablet 2 TIMES DAILY 1 tablet 2 TIMES DAILY (route: oral) Med Classific ation: Hematolog ical Agents finasteride 5 mg tablet 04-30 00:00: 00 06-27 23:59 :00 No [id number] 1 tablet DAILY 1 tablet DAILY (route: oral) Med Classific ation: Genitouri nary Therapy gabapentin 100 mg capsule 04-30 00:00: 00 06-27 23:59 :00 No [id number] 1 capsule DAILY 1 capsule DAILY (route: oral) Med Classific ation: Central Nervous System Agents gabapentin 300 mg capsule - 00:00: 00 06-27 23:59 :00 No [id number] 1 capsule BEDTIME 1 capsule BEDTIME (route: oral) Med Classific ation: Central Nervous System Agents mirtazapine 45 mg tablet - 00:00: 00 06-27 23:59 :00 No [id number] 1 tablet BEDTIME 1 tablet BEDTIME (route: oral) Med Classific ation: Central Nervous System Agents pantoprazol e 40 mg tablet,baltazar yed release - 00:00: 00 06-27 23:59 :00 No [id number] 1 tablet DAILY 1 tablet DAILY (route: oral) Med Classific ation: Gastroint estinal Therapy Agents ropinirole 0.25 mg tablet 04-30 00:00: 00 06-27 23:59 :00 No [id number] 1-4 tablet DIRECTED 1-4 tablet DIRECTED (route: oral) Med Classific ation: Central Nervous System Agents Rytary 36.25 mg-145 mg capsule,ext ended release 04-30 00:00: 00 06-27 23:59 :00 No [id number] 2 capsule 4 TIMES DAILY 2 capsule 4 TIMES DAILY (route: oral) Med Classific ation: Central Nervous System Agents venlafaxine ER 225 mg tablet,exte nded release 24 hr - 00:00: 00 06-27 23:59 :00 No [id number] 1 tablet BEDTIME 1 tablet BEDTIME (route: oral) Med Classific ation: Central Nervous System Agents amantadine HCl 100 mg capsule 3-04 00:00: 00 Yes [id number] 1 capsule DAILY 1 capsule DAILY (route: oral) Med Classific ation: Central Nervous System Agents clonazepam 0.5 mg tablet 3-04 00:00: 00 Yes [id number] 1 tablet BEDTIME 1 tablet BEDTIME (route: oral) Med Classific ation: Central Nervous System Agents Eliquis 5 mg tablet 3-04 00:00: 00 Yes [id number] 1 tablet 2 TIMES DAILY 1 tablet 2 TIMES DAILY (route: oral) Med Classific ation: Hematolog ical Agents finasteride 5 mg tablet 06-29 00:00: 00 Yes [id number] 1 tablet DAILY 1 tablet DAILY (route: oral) Med Classific ation: Genitouri nary Therapy gabapentin 100 mg capsule 06-29 00:00: 00 Yes [id number] 1 capsule DAILY 1 capsule DAILY (route: oral) Med Classific ation: Central Nervous System Agents gabapentin 300 mg capsule 06-29 00:00: 00 Yes [id number] 1 capsule BEDTIME 1 capsule BEDTIME (route: oral) Med Classific ation: Central Nervous System Agents mirtazapine 45 mg tablet 06-29 00:00: 00 Yes [id number] 1 tablet DAILY 1 tablet DAILY (route: oral) Med Classific ation: Central Nervous System Agents pantoprazol e 40 mg tablet,baltazar yed release 06-29 00:00: 00 10-21 23:59 :00 No [id number] 1 tablet DAILY 1 tablet DAILY (route: oral) Med Classific ation: Gastroint estinal Therapy Agents ropinirole 0.25 mg tablet 06-29 00:00: 00 Yes [id number] 2 tablet DAILY 2 tablet DAILY (route: oral) Med Classific ation: Central Nervous System Agents Rytary 36.25 mg-145 mg capsule,ext ended release 06-29 00:00: 00 Yes [id number] 3 capsule 4 TIMES DAILY 3 capsule 4 TIMES DAILY (route: oral) Med Classific ation: Central Nervous System Agents venlafaxine ER 225 mg tablet,exte nded release 24 hr 06-29 00:00: 00 Yes [id number] 1 tablet DAILY 1 tablet DAILY (route: oral) Med Classific ation: Central Nervous System Agents albuterol sulfate HFA 90 mcg/actuati on aerosol inhaler 06-29 00:00: 00 Yes [id number] 2 puff EVERY 6 HOURS 2 puff EVERY 6 HOURS (route: inhalation ) Med Classific ation: Respirato ry Therapy Agents Breo Ellipta 100 mcg-25 mcg/dose powder for inhalation 3-04 00:00: 00 Yes [id number] 1 inhalat ion DAILY 1 inhalation DAILY (route: inhalation ) Med Classific ation: Respirato ry Therapy Agents pantoprazol e 40 mg tablet,baltazar yed release 3- 00:00: 00 10-21 23:59 :00 No [id number] 1 tablet 2 TIMES DAILY 1 tablet 2 TIMES DAILY (route: oral) Med Classific ation: Gastroint estinal Therapy Agents fluconazole 200 mg tablet - 00:00: 00 Yes [id number] 200 mg DAILY 200 mg DAILY (route: oral) Alternate Route: SUBLINGUA L. Med Classific ation: Anti-Infe ctive Agents Carafate 100 mg/mL oral suspension 10-26 00:00: 00 Yes [id number] 10 mL 4 TIMES DAILY 10 mL 4 TIMES DAILY (route: oral) Med Classific ation: Gastroint estinal Therapy Agents Voquezna 20 mg tablet 10-26 00:00: 00 12-03 00:58 :03.3 47 No [id number] 1 tablet 2 TIMES DAILY 1 tablet 2 TIMES DAILY (route: oral) Med Classific ation: Gastroint estinal Therapy Agents Voquezna 20 mg tablet 10-21 00:00: 00 Yes [id number] 1 tablet 2 TIMES DAILY 1 tablet [...] MAINTAIN SITUATIONAL AWARENESS AND WILL NOTIFY CLINICAL DRY FOOD PRODUCTS MIXER AND PHYSICIAN/PROVIDER WITH ANY CHANGE IN CONDITION. [code = SKILLED NURSE TO PERFORM ENVIRONMENTAL SAFETY RISK ASSESSMENT AND FALL RISK ASSESSMENT AND PROVIDE INSTRUCTION TO IMPLEMENT ENVIRONMENTAL SAFETY AND FALL PREVENTION STRATEGIES THROUGHOUT THE CERTIFICATION PERIOD. SKILLED NURSE WILL MAINTAIN SITUATIONAL AWARENESS AND WILL NOTIFY CLINICAL DRY FOOD PRODUCTS MIXER AND PHYSICIAN/PROVIDER WITH ANY CHANGE IN CONDITION.] [...] LASIX PATIENT LIVING SITUATION/CAREGIVER STATUS: [facility] WITH [facility]SE SUMMARIZE SKILLED NEED: DISEASE [...] End Date/Time Encounter Type Admission Type Attending [facility] Care Department Encounter ID Discharge Date Discharge Status Discharge Condition Discharge Reason Percent Goals Met 2025-02-24 00:00:00 2025-04-24 00:00:00 Outpatient RECERTIFIC ATION DEMETRI SLAUGHTER [facility] [id number] 6.25
--- OUTSIDE RECORDS SUMMARY | 2025-04-23 19:00 | XMS_ITS | Clinical Summary ---
Author Organization Unknown Care Team Providers Care Surgeon Chief Name Role Phone DARIAN DANGELO, ANYA Unavailable Unavaila aleisha CHRISTENSEN ADMINISTRATIVE JUDGE/CONTINUOUS MINER OPERATOR, RENAN Unavailable Unava susie SLAUGHTER RN, DEMETRI Unavailable Unavailable Payers Payer Name Policy Type Policy Number Effective Date Expira tion Date [facility] - [facility] [id number] Problems Condition Name Condition Details Condition Category [...] OF URINARY DEVICE Active 04-28 00:00: 00 [facility] (CURRENT) USE OF ANTICOAGULAN TS Active 04-28 [...] 01-11 00:00: 00 01-18 23:59 :00 No [id number] 1 tablet 2 TIMES DAILY 1 tablet 2 TIMES DAILY (route: oral) Med Classific ation: Anti-Infe ctive Agents lactulose 10 gram/15 mL oral solution 01-11 00:00: 00 04-01 23:59 :00 No [id number] 30 g DAILY 30 g DAILY (route: oral) Med Classific ation: Gastroint estinal Therapy Agents Rytary 36.25 mg-145 mg capsule,ext ended release 13 00:00: 00 04-01 23:59 :00 No [id number] 4 capsule 4 TIMES DAILY 4 capsule 4 TIMES DAILY (route: oral) Med Classific ation: Central Nervous System Agents Breo Ellipta 100 mcg-25 mcg/dose powder for inhalation - 00:00: 00 04-01 23:59 :00 No [id number] 1 inhalat ion ONCE DAILY 1 inhalation ONCE DAILY (route: inhalation ) Med Classific ation: Respirato ry Therapy Agents mirtazapine 45 mg tablet 12-12 00:00: 00 04-01 23:59 :00 No [id number] 1 tablet DAILY 1 tablet DAILY (route: oral) Med Classific ation: Central Nervous System Agents docusate sodium 100 mg capsule 16 00:00: 00 04-01 23:59 :00 No [id number] 1 capsule 2 TIMES DAILY 1 capsule 2 TIMES DAILY (route: oral) Med Classific ation: Gastroint estinal Therapy Agents Eliquis 5 mg tablet 10-26 00:00: 00 04-01 23:59 :00 No [id number] 1 tablet 2 TIMES DAILY 1 tablet 2 TIMES DAILY (route: oral) Med Classific ation: Hematolog ical Agents ferrous sulfate 325 mg (65 mg iron) tablet 10-26 00:00: 00 04-01 23:59 :00 No [id number] 1 tablet DAILY 1 tablet DAILY (route: oral) Med Classific ation: Electroly te Balance-N utritiona l Products finasteride 5 mg tablet 10-26 00:00: 00 04-01 23:59 :00 No [id number] 1 tablet DAILY 1 tablet DAILY (route: oral) Med Classific ation: Genitouri nary Therapy furosemide 40 mg tablet 10-26 00:00: 00 04-01 23:59 :00 No [id number] 1 tablet 2 TIMES DAILY 1 tablet 2 TIMES DAILY (route: oral) Med Classific ation: Cardiovas cular Therapy Agents magnesium 400 mg (as magnesium oxide) tablet 10-26 00:00: 00 04-01 23:59 :00 No [id number] 1 tablet DAILY 1 tablet DAILY (route: oral) Med Classific ation: Electroly te Balance-N utritiona l Products prednisolon e acetate 1 % eye drops,suspe nsion 10-26 00:00: 00 04-01 23:59 :00 No [id number] 1 drops 3 TIMES DAILY 1 drops 3 TIMES DAILY (route: ophthalmic (eye)) Med Classific ation: Ophthalmi c Agents ropinirole 0.25 mg tablet 09-28 00:00: 00 04-01 23:59 :00 No [id number] Per instruc tions DIRECTED Per instructio ns DIRECTED (route: oral) Med Classific ation: Central Nervous System Agents venlafaxine ER 225 mg tablet,exte nded release 24 hr 10-26 00:00: 00 04-01 23:59 :00 No [id number] 1 tablet DAILY 1 tablet DAILY (route: oral) Med Classific ation: Central Nervous System Agents Vitamin D3 125 mcg (5,000 unit) tablet 09-28 00:00: 00 04-01 23:59 :00 No [id number] 1 tablet DAILY 1 tablet DAILY (route: oral) Med Classific ation: Electroly te Balance-N utritiona l Products clonazepam 0.5 mg tablet 2023-04 0-11 00:00: 00 04-01 23:59 :00 No [id number] Per instruc tions BEDTIME Per instructio ns BEDTIME (route: oral) Med Classific ation: Central Nervous System Agents acetaminoph en 325 mg tablet 04-30 00:00: 00 06-27 23:59 :00 No [id number] 2 tablet EVERY 4 HOURS 2 tablet EVERY 4 HOURS (route: oral) Med Classific ation: Analgesic , Anti-infl ammatory or Antipyret ic albuterol sulfate HFA 90 mcg/actuati on aerosol inhaler 04-30 00:00: 00 06-27 23:59 :00 No [id number] 2 puff EVERY 6 HOURS 2 puff EVERY 6 HOURS (route: inhalation ) Med Classific ation: Respirato ry Therapy Agents amantadine HCl 100 mg tablet 04-30 00:00: 00 06-27 23:59 :00 No [id number] 1 tablet DAILY 1 tablet DAILY (route: oral) Med Classific ation: Central Nervous System Agents amoxicillin 500 mg capsule 04-30 00:00: 00 06-27 23:59 :00 No [id number] 4 capsule DIRECTED 4 capsule DIRECTED (route: oral) Med Classific ation: Anti-Infe ctive Agents Breo Ellipta 100 mcg-25 mcg/dose powder for inhalation 04-30 00:00: 00 06-27 23:59 :00 No [id number] 1 inhalat ion DAILY 1 inhalation DAILY (route: inhalation ) Med Classific ation: Respirato ry Therapy Agents clonazepam 0.5 mg tablet 04-30 00:00: 00 06-27 23:59 :00 No [id number] 1 tablet BEDTIME 1 tablet BEDTIME (route: oral) Med Classific ation: Central Nervous System Agents docusate sodium 100 mg capsule 04-30 00:00: 00 06-27 23:59 :00 No [id number] 1 capsule 2 TIMES DAILY 1 capsule 2 TIMES DAILY (route: oral) Med Classific ation: Gastroint estinal Therapy Agents Eliquis 5 mg tablet 04-30 00:00: 00 06-27 23:59 :00 No [id number] 1 tablet 2 TIMES DAILY 1 tablet 2 TIMES DAILY (route: oral) Med Classific ation: Hematolog ical Agents finasteride 5 mg tablet 04-30 00:00: 00 06-27 23:59 :00 No [id number] 1 tablet DAILY 1 tablet DAILY (route: oral) Med Classific ation: Genitouri nary Therapy gabapentin 100 mg capsule 04-30 00:00: 00 06-27 23:59 :00 No [id number] 1 capsule DAILY 1 capsule DAILY (route: oral) Med Classific ation: Central Nervous System Agents gabapentin 300 mg capsule - 00:00: 00 06-27 23:59 :00 No [id number] 1 capsule BEDTIME 1 capsule BEDTIME (route: oral) Med Classific ation: Central Nervous System Agents mirtazapine 45 mg tablet - 00:00: 00 06-27 23:59 :00 No [id number] 1 tablet BEDTIME 1 tablet BEDTIME (route: oral) Med Classific ation: Central Nervous System Agents pantoprazol e 40 mg tablet,baltazar yed release - 00:00: 00 06-27 23:59 :00 No [id number] 1 tablet DAILY 1 tablet DAILY (route: oral) Med Classific ation: Gastroint estinal Therapy Agents ropinirole 0.25 mg tablet 04-30 00:00: 00 06-27 23:59 :00 No [id number] 1-4 tablet DIRECTED 1-4 tablet DIRECTED (route: oral) Med Classific ation: Central Nervous System Agents Rytary 36.25 mg-145 mg capsule,ext ended release 04-30 00:00: 00 06-27 23:59 :00 No [id number] 2 capsule 4 TIMES DAILY 2 capsule 4 TIMES DAILY (route: oral) Med Classific ation: Central Nervous System Agents venlafaxine ER 225 mg tablet,exte nded release 24 hr - 00:00: 00 06-27 23:59 :00 No [id number] 1 tablet BEDTIME 1 tablet BEDTIME (route: oral) Med Classific ation: Central Nervous System Agents amantadine HCl 100 mg capsule 3-04 00:00: 00 Yes [id number] 1 capsule DAILY 1 capsule DAILY (route: oral) Med Classific ation: Central Nervous System Agents clonazepam 0.5 mg tablet 3-04 00:00: 00 Yes [id number] 1 tablet BEDTIME 1 tablet BEDTIME (route: oral) Med Classific ation: Central Nervous System Agents Eliquis 5 mg tablet 3-04 00:00: 00 Yes [id number] 1 tablet 2 TIMES DAILY 1 tablet 2 TIMES DAILY (route: oral) Med Classific ation: Hematolog ical Agents finasteride 5 mg tablet 06-29 00:00: 00 Yes [id number] 1 tablet DAILY 1 tablet DAILY (route: oral) Med Classific ation: Genitouri nary Therapy gabapentin 100 mg capsule 06-29 00:00: 00 Yes [id number] 1 capsule DAILY 1 capsule DAILY (route: oral) Med Classific ation: Central Nervous System Agents gabapentin 300 mg capsule 06-29 00:00: 00 Yes [id number] 1 capsule BEDTIME 1 capsule BEDTIME (route: oral) Med Classific ation: Central Nervous System Agents mirtazapine 45 mg tablet 06-29 00:00: 00 Yes [id number] 1 tablet DAILY 1 tablet DAILY (route: oral) Med Classific ation: Central Nervous System Agents pantoprazol e 40 mg tablet,baltazar yed release 06-29 00:00: 00 10-21 23:59 :00 No [id number] 1 tablet DAILY 1 tablet DAILY (route: oral) Med Classific ation: Gastroint estinal Therapy Agents ropinirole 0.25 mg tablet 06-29 00:00: 00 Yes [id number] 2 tablet DAILY 2 tablet DAILY (route: oral) Med Classific ation: Central Nervous System Agents Rytary 36.25 mg-145 mg capsule,ext ended release 06-29 00:00: 00 Yes [id number] 3 capsule 4 TIMES DAILY 3 capsule 4 TIMES DAILY (route: oral) Med Classific ation: Central Nervous System Agents venlafaxine ER 225 mg tablet,exte nded release 24 hr 06-29 00:00: 00 Yes [id number] 1 tablet DAILY 1 tablet DAILY (route: oral) Med Classific ation: Central Nervous System Agents albuterol sulfate HFA 90 mcg/actuati on aerosol inhaler 06-29 00:00: 00 Yes [id number] 2 puff EVERY 6 HOURS 2 puff EVERY 6 HOURS (route: inhalation ) Med Classific ation: Respirato ry Therapy Agents Breo Ellipta 100 mcg-25 mcg/dose powder for inhalation 3-04 00:00: 00 Yes [id number] 1 inhalat ion DAILY 1 inhalation DAILY (route: inhalation ) Med Classific ation: Respirato ry Therapy Agents pantoprazol e 40 mg tablet,baltazar yed release 3- 00:00: 00 10-21 23:59 :00 No [id number] 1 tablet 2 TIMES DAILY 1 tablet 2 TIMES DAILY (route: oral) Med Classific ation: Gastroint estinal Therapy Agents fluconazole 200 mg tablet - 00:00: 00 Yes [id number] 200 mg DAILY 200 mg DAILY (route: oral) Alternate Route: SUBLINGUA L. Med Classific ation: Anti-Infe ctive Agents Carafate 100 mg/mL oral suspension 10-26 00:00: 00 Yes [id number] 10 mL 4 TIMES DAILY 10 mL 4 TIMES DAILY (route: oral) Med Classific ation: Gastroint estinal Therapy Agents Voquezna 20 mg tablet 10-26 00:00: 00 12-03 00:58 :03.3 47 No [id number] 1 tablet 2 TIMES DAILY 1 tablet 2 TIMES DAILY (route: oral) Med Classific ation: Gastroint estinal Therapy Agents Voquezna 20 mg tablet 10-21 00:00: 00 Yes [id number] 1 tablet 2 TIMES DAILY 1 tablet [...] BLOCKAGE/LEAKAGE, HEAVY SEDIMENT. 1 - 3 PRN MCC VISITS FOR CATHETER CHANGE(S) AND/OR TROUBLESHOOTING. [code = SKILLED NURSE TO INSTRUCT PATIENT/CAREGIVER AND PERFORM CARE AND MANAGEMENT OF INDWELLING URINARY CATHETER. [place] CATHETER INSERTION WITH 18 FR CATHETER WITH 10 ML BALLOON VIA STERILE TECHNIQUE, CHANGE Q 4 WEEKS AND PRN FOR LEAKING OR MALFUNCTIONING CATHETER. IRRIGATE URINARY CATHETER WITH 30-60CC NORMAL SALINE PRN BLOCKAGE/LEAKAGE, HEAVY SEDIMENT. 1 - 3 PRN MCC VISITS FOR CATHETER CHANGE(S) AND/OR TROUBLESHOOTING.] Future [...] MAINTAIN SITUATIONAL AWARENESS AND WILL NOTIFY CLINICAL QUARTER LINING SMOOTHER AND PHYSICIAN/PROVIDER WITH ANY CHANGE IN CONDITION. [code = SKILLED NURSE TO PERFORM ENVIRONMENTAL SAFETY RISK ASSESSMENT AND FALL RISK ASSESSMENT AND PROVIDE INSTRUCTION TO IMPLEMENT ENVIRONMENTAL SAFETY AND FALL PREVENTION STRATEGIES THROUGHOUT THE CERTIFICATION PERIOD. SKILLED NURSE WILL MAINTAIN SITUATIONAL AWARENESS AND WILL NOTIFY CLINICAL QUARTER LINING SMOOTHER AND PHYSICIAN/PROVIDER WITH ANY CHANGE IN CONDITION.] [...] LASIX PATIENT LIVING SITUATION/CAREGIVER STATUS: [facility] SPOUSE SUMMARIZE SKILLED NEED: DISEASE [...] CARE WILL BE ESTABLISHED THAT MEETS PATIENT'S MCC NEEDS AND INCLUDES PATIENT GOAL FOR HOME [...] End Date/Time Encounter Type Admission Type Attending [facility] Care Department Encounter ID Discharge Date Discharge Status Discharge Condition Discharge Reason Percent Goals Met 2025-02-24 00:00:00 2025-04-24 00:00:00 Outpatient RECERTIFIC ATION DEMETRI SLAUGHTER [facility] [id number] 6.25
--- OUTSIDE RECORDS SUMMARY | 2025-04-23 19:00 | XMS_ITS | Clinical Summary ---
Author Organization Unknown Care Team Providers Care Journeyman [place] Name Role Phone DARIAN DANGELO, ANYA Unavailable Unavaila aleisha CHRISTENSEN COMMERCIAL ENERGY RATER/EMU FARM WORKER, RENAN Unavailable Unava susie SLAUGHTER RN, DEMETRI Unavailable Unavailable Payers Payer Name Policy Type Policy Number Effective Date Expira tion Date MEDICARE - [facility] CT - PD [id number] Problems Condition Name Condition Details Condition Category [...] OF URINARY DEVICE Active 04-28 00:00: 00 [facility] (CURRENT) USE OF ANTICOAGULAN TS Active 04-28 [...] 01-11 00:00: 00 01-18 23:59 :00 No [id number] 1 tablet 2 TIMES DAILY 1 tablet 2 TIMES DAILY (route: oral) Med Classific ation: Anti-Infe ctive Agents lactulose 10 gram/15 mL oral solution 01-11 00:00: 00 04-01 23:59 :00 No [id number] 30 g DAILY 30 g DAILY (route: oral) Med Classific ation: Gastroint estinal Therapy Agents Rytary 36.25 mg-145 mg capsule,ext ended release 13 00:00: 00 04-01 23:59 :00 No [id number] 4 capsule 4 TIMES DAILY 4 capsule 4 TIMES DAILY (route: oral) Med Classific ation: Central Nervous System Agents Breo Ellipta 100 mcg-25 mcg/dose powder for inhalation - 00:00: 00 04-01 23:59 :00 No [id number] 1 inhalat ion ONCE DAILY 1 inhalation ONCE DAILY (route: inhalation ) Med Classific ation: Respirato ry Therapy Agents mirtazapine 45 mg tablet 12-12 00:00: 00 04-01 23:59 :00 No [id number] 1 tablet DAILY 1 tablet DAILY (route: oral) Med Classific ation: Central Nervous System Agents docusate sodium 100 mg capsule 16 00:00: 00 04-01 23:59 :00 No [id number] 1 capsule 2 TIMES DAILY 1 capsule 2 TIMES DAILY (route: oral) Med Classific ation: Gastroint estinal Therapy Agents Eliquis 5 mg tablet 10-26 00:00: 00 04-01 23:59 :00 No [id number] 1 tablet 2 TIMES DAILY 1 tablet 2 TIMES DAILY (route: oral) Med Classific ation: Hematolog ical Agents ferrous sulfate 325 mg (65 mg iron) tablet 10-26 00:00: 00 04-01 23:59 :00 No [id number] 1 tablet DAILY 1 tablet DAILY (route: oral) Med Classific ation: Electroly te Balance-N utritiona l Products finasteride 5 mg tablet 10-26 00:00: 00 04-01 23:59 :00 No [id number] 1 tablet DAILY 1 tablet DAILY (route: oral) Med Classific ation: Genitouri nary Therapy furosemide 40 mg tablet 10-26 00:00: 00 04-01 23:59 :00 No [id number] 1 tablet 2 TIMES DAILY 1 tablet 2 TIMES DAILY (route: oral) Med Classific ation: Cardiovas cular Therapy Agents magnesium 400 mg (as magnesium oxide) tablet 10-26 00:00: 00 04-01 23:59 :00 No [id number] 1 tablet DAILY 1 tablet DAILY (route: oral) Med Classific ation: Electroly te Balance-N utritiona l Products prednisolon e acetate 1 % eye drops,suspe nsion 10-26 00:00: 00 04-01 23:59 :00 No [id number] 1 drops 3 TIMES DAILY 1 drops 3 TIMES DAILY (route: ophthalmic (eye)) Med Classific ation: Ophthalmi c Agents ropinirole 0.25 mg tablet 09-28 00:00: 00 04-01 23:59 :00 No [id number] Per instruc tions DIRECTED Per instructio ns DIRECTED (route: oral) Med Classific ation: Central Nervous System Agents venlafaxine ER 225 mg tablet,exte nded release 24 hr 10-26 00:00: 00 04-01 23:59 :00 No [id number] 1 tablet DAILY 1 tablet DAILY (route: oral) Med Classific ation: Central Nervous System Agents Vitamin D3 125 mcg (5,000 unit) tablet 09-28 00:00: 00 04-01 23:59 :00 No [id number] 1 tablet DAILY 1 tablet DAILY (route: oral) Med Classific ation: Electroly te Balance-N utritiona l Products clonazepam 0.5 mg tablet 2023-04 0-11 00:00: 00 04-01 23:59 :00 No [id number] Per instruc tions BEDTIME Per instructio ns BEDTIME (route: oral) Med Classific ation: Central Nervous System Agents acetaminoph en 325 mg tablet 04-30 00:00: 00 06-27 23:59 :00 No [id number] 2 tablet EVERY 4 HOURS 2 tablet EVERY 4 HOURS (route: oral) Med Classific ation: Analgesic , Anti-infl ammatory or Antipyret ic albuterol sulfate HFA 90 mcg/actuati on aerosol inhaler 04-30 00:00: 00 06-27 23:59 :00 No [id number] 2 puff EVERY 6 HOURS 2 puff EVERY 6 HOURS (route: inhalation ) Med Classific ation: Respirato ry Therapy Agents amantadine HCl 100 mg tablet 04-30 00:00: 00 06-27 23:59 :00 No [id number] 1 tablet DAILY 1 tablet DAILY (route: oral) Med Classific ation: Central Nervous System Agents amoxicillin 500 mg capsule 04-30 00:00: 00 06-27 23:59 :00 No [id number] 4 capsule DIRECTED 4 capsule DIRECTED (route: oral) Med Classific ation: Anti-Infe ctive Agents Breo Ellipta 100 mcg-25 mcg/dose powder for inhalation 04-30 00:00: 00 06-27 23:59 :00 No [id number] 1 inhalat ion DAILY 1 inhalation DAILY (route: inhalation ) Med Classific ation: Respirato ry Therapy Agents clonazepam 0.5 mg tablet 04-30 00:00: 00 06-27 23:59 :00 No [id number] 1 tablet BEDTIME 1 tablet BEDTIME (route: oral) Med Classific ation: Central Nervous System Agents docusate sodium 100 mg capsule 04-30 00:00: 00 06-27 23:59 :00 No [id number] 1 capsule 2 TIMES DAILY 1 capsule 2 TIMES DAILY (route: oral) Med Classific ation: Gastroint estinal Therapy Agents Eliquis 5 mg tablet 04-30 00:00: 00 06-27 23:59 :00 No [id number] 1 tablet 2 TIMES DAILY 1 tablet 2 TIMES DAILY (route: oral) Med Classific ation: Hematolog ical Agents finasteride 5 mg tablet 04-30 00:00: 00 06-27 23:59 :00 No [id number] 1 tablet DAILY 1 tablet DAILY (route: oral) Med Classific ation: Genitouri nary Therapy gabapentin 100 mg capsule 04-30 00:00: 00 06-27 23:59 :00 No [id number] 1 capsule DAILY 1 capsule DAILY (route: oral) Med Classific ation: Central Nervous System Agents gabapentin 300 mg capsule - 00:00: 00 06-27 23:59 :00 No [id number] 1 capsule BEDTIME 1 capsule BEDTIME (route: oral) Med Classific ation: Central Nervous System Agents mirtazapine 45 mg tablet - 00:00: 00 06-27 23:59 :00 No [id number] 1 tablet BEDTIME 1 tablet BEDTIME (route: oral) Med Classific ation: Central Nervous System Agents pantoprazol e 40 mg tablet,baltazar yed release - 00:00: 00 06-27 23:59 :00 No [id number] 1 tablet DAILY 1 tablet DAILY (route: oral) Med Classific ation: Gastroint estinal Therapy Agents ropinirole 0.25 mg tablet 04-30 00:00: 00 06-27 23:59 :00 No [id number] 1-4 tablet DIRECTED 1-4 tablet DIRECTED (route: oral) Med Classific ation: Central Nervous System Agents Rytary 36.25 mg-145 mg capsule,ext ended release 04-30 00:00: 00 06-27 23:59 :00 No [id number] 2 capsule 4 TIMES DAILY 2 capsule 4 TIMES DAILY (route: oral) Med Classific ation: Central Nervous System Agents venlafaxine ER 225 mg tablet,exte nded release 24 hr - 00:00: 00 06-27 23:59 :00 No [id number] 1 tablet BEDTIME 1 tablet BEDTIME (route: oral) Med Classific ation: Central Nervous System Agents amantadine HCl 100 mg capsule 3-04 00:00: 00 Yes [id number] 1 capsule DAILY 1 capsule DAILY (route: oral) Med Classific ation: Central Nervous System Agents clonazepam 0.5 mg tablet 3-04 00:00: 00 Yes [id number] 1 tablet BEDTIME 1 tablet BEDTIME (route: oral) Med Classific ation: Central Nervous System Agents Eliquis 5 mg tablet 3-04 00:00: 00 Yes [id number] 1 tablet 2 TIMES DAILY 1 tablet 2 TIMES DAILY (route: oral) Med Classific ation: Hematolog ical Agents finasteride 5 mg tablet 06-29 00:00: 00 Yes [id number] 1 tablet DAILY 1 tablet DAILY (route: oral) Med Classific ation: Genitouri nary Therapy gabapentin 100 mg capsule 06-29 00:00: 00 Yes [id number] 1 capsule DAILY 1 capsule DAILY (route: oral) Med Classific ation: Central Nervous System Agents gabapentin 300 mg capsule 06-29 00:00: 00 Yes [id number] 1 capsule BEDTIME 1 capsule BEDTIME (route: oral) Med Classific ation: Central Nervous System Agents mirtazapine 45 mg tablet 06-29 00:00: 00 Yes [id number] 1 tablet DAILY 1 tablet DAILY (route: oral) Med Classific ation: Central Nervous System Agents pantoprazol e 40 mg tablet,baltazar yed release 06-29 00:00: 00 10-21 23:59 :00 No [id number] 1 tablet DAILY 1 tablet DAILY (route: oral) Med Classific ation: Gastroint estinal Therapy Agents ropinirole 0.25 mg tablet 06-29 00:00: 00 Yes [id number] 2 tablet DAILY 2 tablet DAILY (route: oral) Med Classific ation: Central Nervous System Agents Rytary 36.25 mg-145 mg capsule,ext ended release 06-29 00:00: 00 Yes [id number] 3 capsule 4 TIMES DAILY 3 capsule 4 TIMES DAILY (route: oral) Med Classific ation: Central Nervous System Agents venlafaxine ER 225 mg tablet,exte nded release 24 hr 06-29 00:00: 00 Yes [id number] 1 tablet DAILY 1 tablet DAILY (route: oral) Med Classific ation: Central Nervous System Agents albuterol sulfate HFA 90 mcg/actuati on aerosol inhaler 06-29 00:00: 00 Yes [id number] 2 puff EVERY 6 HOURS 2 puff EVERY 6 HOURS (route: inhalation ) Med Classific ation: Respirato ry Therapy Agents Breo Ellipta 100 mcg-25 mcg/dose powder for inhalation 3-04 00:00: 00 Yes [id number] 1 inhalat ion DAILY 1 inhalation DAILY (route: inhalation ) Med Classific ation: Respirato ry Therapy Agents pantoprazol e 40 mg tablet,baltazar yed release 3- 00:00: 00 10-21 23:59 :00 No [id number] 1 tablet 2 TIMES DAILY 1 tablet 2 TIMES DAILY (route: oral) Med Classific ation: Gastroint estinal Therapy Agents fluconazole 200 mg tablet - 00:00: 00 Yes [id number] 200 mg DAILY 200 mg DAILY (route: oral) Alternate Route: SUBLINGUA L. Med Classific ation: Anti-Infe ctive Agents Carafate 100 mg/mL oral suspension 10-26 00:00: 00 Yes [id number] 10 mL 4 TIMES DAILY 10 mL 4 TIMES DAILY (route: oral) Med Classific ation: Gastroint estinal Therapy Agents Voquezna 20 mg tablet 10-26 00:00: 00 12-03 00:58 :03.3 47 No [id number] 1 tablet 2 TIMES DAILY 1 tablet 2 TIMES DAILY (route: oral) Med Classific ation: Gastroint estinal Therapy Agents Voquezna 20 mg tablet 10-21 00:00: 00 Yes [id number] 1 tablet 2 TIMES DAILY 1 tablet [...] BLOCKAGE/LEAKAGE, HEAVY SEDIMENT. 1 - 3 PRN RETIREMENT VISITS FOR CATHETER CHANGE(S) AND/OR TROUBLESHOOTING. [code = SKILLED NURSE TO INSTRUCT PATIENT/CAREGIVER AND PERFORM CARE AND MANAGEMENT OF INDWELLING URINARY CATHETER. [place] CATHETER INSERTION WITH 18 FR CATHETER WITH 10 ML BALLOON VIA STERILE TECHNIQUE, CHANGE Q 4 WEEKS AND PRN FOR LEAKING OR MALFUNCTIONING CATHETER. IRRIGATE URINARY CATHETER WITH 30-60CC NORMAL SALINE PRN BLOCKAGE/LEAKAGE, HEAVY SEDIMENT. 1 - 3 PRN RETIREMENT VISITS FOR CATHETER CHANGE(S) AND/OR TROUBLESHOOTING.] Future [...] MAINTAIN SITUATIONAL AWARENESS AND WILL NOTIFY CLINICAL EMAIL MARKETING MANAGER AND PHYSICIAN/PROVIDER WITH ANY CHANGE IN CONDITION. [code = SKILLED NURSE TO PERFORM ENVIRONMENTAL SAFETY RISK ASSESSMENT AND FALL RISK ASSESSMENT AND PROVIDE INSTRUCTION TO IMPLEMENT ENVIRONMENTAL SAFETY AND FALL PREVENTION STRATEGIES THROUGHOUT THE CERTIFICATION PERIOD. SKILLED NURSE WILL MAINTAIN SITUATIONAL AWARENESS AND WILL NOTIFY CLINICAL EMAIL MARKETING MANAGER AND PHYSICIAN/PROVIDER WITH ANY CHANGE IN CONDITION.] [...] [facility]IX PATIENT LIVING SITUATION/CAREGIVER STATUS: [facility] SKILL[facility] NEED: [...] CARE WILL BE ESTABLISHED THAT MEETS PATIENT'S RETIREMENT NEEDS AND INCLUDES PATIENT GOAL FOR HOME [...] End Date/Time Encounter Type Admission Type [facility]ending [facility] Care Department Encounter ID Discharge Date Discharge Status Discharge Condition Discharge Reason Percent Goals Met 2025-02-24 00:00:00 2025-04-24 00:00:00 Outpatient RECERTIFIC ATION DEMETRI SLAUGHTER [facility] [id number] 6.25
--- OUTSIDE RECORDS SUMMARY | 2025-04-23 19:00 | XMS_ITS | Clinical Summary ---
Author Organization Unknown Care Team Providers Care Theatrical Trouper Name Role Phone DARIAN DANGELO, ANYA Unavailable Unavaila aleisha CHRISTENSEN FORMULATOR/RESIDENT BUYER, RENAN Unavailable Unava susie SLAUGHTER RN, DEMETRI Unavailable Unavailable Payers Payer Name Policy Type Policy Number Effective Date Expira tion Date MEDICARE - [facility] CT - PD [id number] Problems Condition Name Condition Details Condition Category [...] OF URINARY DEVICE Active 04-28 00:00: 00 [facility] (CURRENT) USE OF ANTICOAGULAN TS Active 04-28 [...] 01-11 00:00: 00 01-18 23:59 :00 No [id number] 1 tablet 2 TIMES DAILY 1 tablet 2 TIMES DAILY (route: oral) Med Classific ation: Anti-Infe ctive Agents lactulose 10 gram/15 mL oral solution 01-11 00:00: 00 04-01 23:59 :00 No [id number] 30 g DAILY 30 g DAILY (route: oral) Med Classific ation: Gastroint estinal Therapy Agents Rytary 36.25 mg-145 mg capsule,ext ended release 13 00:00: 00 04-01 23:59 :00 No [id number] 4 capsule 4 TIMES DAILY 4 capsule 4 TIMES DAILY (route: oral) Med Classific ation: Central Nervous System Agents Breo Ellipta 100 mcg-25 mcg/dose powder for inhalation - 00:00: 00 04-01 23:59 :00 No [id number] 1 inhalat ion ONCE DAILY 1 inhalation ONCE DAILY (route: inhalation ) Med Classific ation: Respirato ry Therapy Agents mirtazapine 45 mg tablet 12-12 00:00: 00 04-01 23:59 :00 No [id number] 1 tablet DAILY 1 tablet DAILY (route: oral) Med Classific ation: Central Nervous System Agents docusate sodium 100 mg capsule 16 00:00: 00 04-01 23:59 :00 No [id number] 1 capsule 2 TIMES DAILY 1 capsule 2 TIMES DAILY (route: oral) Med Classific ation: Gastroint estinal Therapy Agents Eliquis 5 mg tablet 10-26 00:00: 00 04-01 23:59 :00 No [id number] 1 tablet 2 TIMES DAILY 1 tablet 2 TIMES DAILY (route: oral) Med Classific ation: Hematolog ical Agents ferrous sulfate 325 mg (65 mg iron) tablet 10-26 00:00: 00 04-01 23:59 :00 No [id number] 1 tablet DAILY 1 tablet DAILY (route: oral) Med Classific ation: Electroly te Balance-N utritiona l Products finasteride 5 mg tablet 10-26 00:00: 00 04-01 23:59 :00 No [id number] 1 tablet DAILY 1 tablet DAILY (route: oral) Med Classific ation: Genitouri nary Therapy furosemide 40 mg tablet 10-26 00:00: 00 04-01 23:59 :00 No [id number] 1 tablet 2 TIMES DAILY 1 tablet 2 TIMES DAILY (route: oral) Med Classific ation: Cardiovas cular Therapy Agents magnesium 400 mg (as magnesium oxide) tablet 10-26 00:00: 00 04-01 23:59 :00 No [id number] 1 tablet DAILY 1 tablet DAILY (route: oral) Med Classific ation: Electroly te Balance-N utritiona l Products prednisolon e acetate 1 % eye drops,suspe nsion 10-26 00:00: 00 04-01 23:59 :00 No [id number] 1 drops 3 TIMES DAILY 1 drops 3 TIMES DAILY (route: ophthalmic (eye)) Med Classific ation: Ophthalmi c Agents ropinirole 0.25 mg tablet 09-28 00:00: 00 04-01 23:59 :00 No [id number] Per instruc tions DIRECTED Per instructio ns DIRECTED (route: oral) Med Classific ation: Central Nervous System Agents venlafaxine ER 225 mg tablet,exte nded release 24 hr 10-26 00:00: 00 04-01 23:59 :00 No [id number] 1 tablet DAILY 1 tablet DAILY (route: oral) Med Classific ation: Central Nervous System Agents Vitamin D3 125 mcg (5,000 unit) tablet 09-28 00:00: 00 04-01 23:59 :00 No [id number] 1 tablet DAILY 1 tablet DAILY (route: oral) Med Classific ation: Electroly te Balance-N utritiona l Products clonazepam 0.5 mg tablet 2023-04 0-11 00:00: 00 04-01 23:59 :00 No [id number] Per instruc tions BEDTIME Per instructio ns BEDTIME (route: oral) Med Classific ation: Central Nervous System Agents acetaminoph en 325 mg tablet 04-30 00:00: 00 06-27 23:59 :00 No [id number] 2 tablet EVERY 4 HOURS 2 tablet EVERY 4 HOURS (route: oral) Med Classific ation: Analgesic , Anti-infl ammatory or Antipyret ic albuterol sulfate HFA 90 mcg/actuati on aerosol inhaler 04-30 00:00: 00 06-27 23:59 :00 No [id number] 2 puff EVERY 6 HOURS 2 puff EVERY 6 HOURS (route: inhalation ) Med Classific ation: Respirato ry Therapy Agents amantadine HCl 100 mg tablet 04-30 00:00: 00 06-27 23:59 :00 No [id number] 1 tablet DAILY 1 tablet DAILY (route: oral) Med Classific ation: Central Nervous System Agents amoxicillin 500 mg capsule 04-30 00:00: 00 06-27 23:59 :00 No [id number] 4 capsule DIRECTED 4 capsule DIRECTED (route: oral) Med Classific ation: Anti-Infe ctive Agents Breo Ellipta 100 mcg-25 mcg/dose powder for inhalation 04-30 00:00: 00 06-27 23:59 :00 No [id number] 1 inhalat ion DAILY 1 inhalation DAILY (route: inhalation ) Med Classific ation: Respirato ry Therapy Agents clonazepam 0.5 mg tablet 04-30 00:00: 00 06-27 23:59 :00 No [id number] 1 tablet BEDTIME 1 tablet BEDTIME (route: oral) Med Classific ation: Central Nervous System Agents docusate sodium 100 mg capsule 04-30 00:00: 00 06-27 23:59 :00 No [id number] 1 capsule 2 TIMES DAILY 1 capsule 2 TIMES DAILY (route: oral) Med Classific ation: Gastroint estinal Therapy Agents Eliquis 5 mg tablet 04-30 00:00: 00 06-27 23:59 :00 No [id number] 1 tablet 2 TIMES DAILY 1 tablet 2 TIMES DAILY (route: oral) Med Classific ation: Hematolog ical Agents finasteride 5 mg tablet 04-30 00:00: 00 06-27 23:59 :00 No [id number] 1 tablet DAILY 1 tablet DAILY (route: oral) Med Classific ation: Genitouri nary Therapy gabapentin 100 mg capsule 04-30 00:00: 00 06-27 23:59 :00 No [id number] 1 capsule DAILY 1 capsule DAILY (route: oral) Med Classific ation: Central Nervous System Agents gabapentin 300 mg capsule - 00:00: 00 06-27 23:59 :00 No [id number] 1 capsule BEDTIME 1 capsule BEDTIME (route: oral) Med Classific ation: Central Nervous System Agents mirtazapine 45 mg tablet - 00:00: 00 06-27 23:59 :00 No [id number] 1 tablet BEDTIME 1 tablet BEDTIME (route: oral) Med Classific ation: Central Nervous System Agents pantoprazol e 40 mg tablet,baltazar yed release - 00:00: 00 06-27 23:59 :00 No [id number] 1 tablet DAILY 1 tablet DAILY (route: oral) Med Classific ation: Gastroint estinal Therapy Agents ropinirole 0.25 mg tablet 04-30 00:00: 00 06-27 23:59 :00 No [id number] 1-4 tablet DIRECTED 1-4 tablet DIRECTED (route: oral) Med Classific ation: Central Nervous System Agents Rytary 36.25 mg-145 mg capsule,ext ended release 04-30 00:00: 00 06-27 23:59 :00 No [id number] 2 capsule 4 TIMES DAILY 2 capsule 4 TIMES DAILY (route: oral) Med Classific ation: Central Nervous System Agents venlafaxine ER 225 mg tablet,exte nded release 24 hr - 00:00: 00 06-27 23:59 :00 No [id number] 1 tablet BEDTIME 1 tablet BEDTIME (route: oral) Med Classific ation: Central Nervous System Agents amantadine HCl 100 mg capsule 3-04 00:00: 00 Yes [id number] 1 capsule DAILY 1 capsule DAILY (route: oral) Med Classific ation: Central Nervous System Agents clonazepam 0.5 mg tablet 3-04 00:00: 00 Yes [id number] 1 tablet BEDTIME 1 tablet BEDTIME (route: oral) Med Classific ation: Central Nervous System Agents Eliquis 5 mg tablet 3-04 00:00: 00 Yes [id number] 1 tablet 2 TIMES DAILY 1 tablet 2 TIMES DAILY (route: oral) Med Classific ation: Hematolog ical Agents finasteride 5 mg tablet 06-29 00:00: 00 Yes [id number] 1 tablet DAILY 1 tablet DAILY (route: oral) Med Classific ation: Genitouri nary Therapy gabapentin 100 mg capsule 06-29 00:00: 00 Yes [id number] 1 capsule DAILY 1 capsule DAILY (route: oral) Med Classific ation: Central Nervous System Agents gabapentin 300 mg capsule 06-29 00:00: 00 Yes [id number] 1 capsule BEDTIME 1 capsule BEDTIME (route: oral) Med Classific ation: Central Nervous System Agents mirtazapine 45 mg tablet 06-29 00:00: 00 Yes [id number] 1 tablet DAILY 1 tablet DAILY (route: oral) Med Classific ation: Central Nervous System Agents pantoprazol e 40 mg tablet,baltazar yed release 06-29 00:00: 00 10-21 23:59 :00 No [id number] 1 tablet DAILY 1 tablet DAILY (route: oral) Med Classific ation: Gastroint estinal Therapy Agents ropinirole 0.25 mg tablet 06-29 00:00: 00 Yes [id number] 2 tablet DAILY 2 tablet DAILY (route: oral) Med Classific ation: Central Nervous System Agents Rytary 36.25 mg-145 mg capsule,ext ended release 06-29 00:00: 00 Yes [id number] 3 capsule 4 TIMES DAILY 3 capsule 4 TIMES DAILY (route: oral) Med Classific ation: Central Nervous System Agents venlafaxine ER 225 mg tablet,exte nded release 24 hr 06-29 00:00: 00 Yes [id number] 1 tablet DAILY 1 tablet DAILY (route: oral) Med Classific ation: Central Nervous System Agents albuterol sulfate HFA 90 mcg/actuati on aerosol inhaler 06-29 00:00: 00 Yes [id number] 2 puff EVERY 6 HOURS 2 puff EVERY 6 HOURS (route: inhalation ) Med Classific ation: Respirato ry Therapy Agents Breo Ellipta 100 mcg-25 mcg/dose powder for inhalation 3-04 00:00: 00 Yes [id number] 1 inhalat ion DAILY 1 inhalation DAILY (route: inhalation ) Med Classific ation: Respirato ry Therapy Agents pantoprazol e 40 mg tablet,baltazar yed release 3- 00:00: 00 10-21 23:59 :00 No [id number] 1 tablet 2 TIMES DAILY 1 tablet 2 TIMES DAILY (route: oral) Med Classific ation: Gastroint estinal Therapy Agents fluconazole 200 mg tablet - 00:00: 00 Yes [id number] 200 mg DAILY 200 mg DAILY (route: oral) Alternate Route: SUBLINGUA L. Med Classific ation: Anti-Infe ctive Agents Carafate 100 mg/mL oral suspension 10-26 00:00: 00 Yes [id number] 10 mL 4 TIMES DAILY 10 mL 4 TIMES DAILY (route: oral) Med Classific ation: Gastroint estinal Therapy Agents Voquezna 20 mg tablet 10-26 00:00: 00 12-03 00:58 :03.3 47 No [id number] 1 tablet 2 TIMES DAILY 1 tablet 2 TIMES DAILY (route: oral) Med Classific ation: Gastroint estinal Therapy Agents Voquezna 20 mg tablet 10-21 00:00: 00 Yes [id number] 1 tablet 2 TIMES DAILY 1 tablet [...] MAINTAIN SITUATIONAL AWARENESS AND WILL NOTIFY CLINICAL CREW BOAT OPERATOR AND PHYSICIAN/PROVIDER WITH ANY CHANGE IN CONDITION. [code = SKILLED NURSE TO PERFORM ENVIRONMENTAL SAFETY RISK ASSESSMENT AND FALL RISK ASSESSMENT AND PROVIDE INSTRUCTION TO IMPLEMENT ENVIRONMENTAL SAFETY AND FALL PREVENTION STRATEGIES THROUGHOUT THE CERTIFICATION PERIOD. SKILLED NURSE WILL MAINTAIN SITUATIONAL AWARENESS AND WILL NOTIFY CLINICAL CREW BOAT OPERATOR AND PHYSICIAN/PROVIDER WITH ANY CHANGE IN CONDITION.] [...] LASIX PATIENT LIVING SITUATION/CAREGIVER STATUS: [facility] SUMMAR[facility] SKILLED NEED: DISEASE [...] Date/Time Encounter Type Admission Type Attending [facility] Care Department Encounter ID Discharge Date Discharge Status Discharge Condition Discharge Reason Percent Goals Met 2025-02-24 00:00:00 2025-04-24 00:00:00 Outpatient RECERTIFIC ATION DEMETRI SLAUGHTER [facility] [id number] 6.25
--- OUTSIDE RECORDS SUMMARY | 2025-04-23 19:00 | XMS_ITS | Clinical Summary ---
Author Organization Unknown Care Team Providers Care Office Specialist Name Role Phone DARIAN DANGELO, ANYA Unavailable Unavaila aleisha CHRISTENSEN PRESSURE TESTER/GPS FIELD DATA COLLECTOR, RENAN Unavailable Unava susie SLAUGHTER RN, DEMETRI Unavailable Unavailable Payers Payer Name Policy Type Policy Number Effective Date Expira tion Date MEDICARE - [facility] - PD [id number] Problems Condition Name Condition Details Condition Category [...] OF URINARY DEVICE Active 04-28 00:00: 00 ASSISTED (CURRENT) USE OF ANTICOAGULAN TS Active 04-28 [...] 01-11 00:00: 00 01-18 23:59 :00 No [id number] 1 tablet 2 TIMES DAILY 1 tablet 2 TIMES DAILY (route: oral) Med Classific ation: Anti-Infe ctive Agents lactulose 10 gram/15 mL oral solution 01-11 00:00: 00 04-01 23:59 :00 No [id number] 30 g DAILY 30 g DAILY (route: oral) Med Classific ation: Gastroint estinal Therapy Agents Rytary 36.25 mg-145 mg capsule,ext ended release 13 00:00: 00 04-01 23:59 :00 No [id number] 4 capsule 4 TIMES DAILY 4 capsule 4 TIMES DAILY (route: oral) Med Classific ation: Central Nervous System Agents Breo Ellipta 100 mcg-25 mcg/dose powder for inhalation - 00:00: 00 04-01 23:59 :00 No [id number] 1 inhalat ion ONCE DAILY 1 inhalation ONCE DAILY (route: inhalation ) Med Classific ation: Respirato ry Therapy Agents mirtazapine 45 mg tablet 12-12 00:00: 00 04-01 23:59 :00 No [id number] 1 tablet DAILY 1 tablet DAILY (route: oral) Med Classific ation: Central Nervous System Agents docusate sodium 100 mg capsule 16 00:00: 00 04-01 23:59 :00 No [id number] 1 capsule 2 TIMES DAILY 1 capsule 2 TIMES DAILY (route: oral) Med Classific ation: Gastroint estinal Therapy Agents Eliquis 5 mg tablet 10-26 00:00: 00 04-01 23:59 :00 No [id number] 1 tablet 2 TIMES DAILY 1 tablet 2 TIMES DAILY (route: oral) Med Classific ation: Hematolog ical Agents ferrous sulfate 325 mg (65 mg iron) tablet 10-26 00:00: 00 04-01 23:59 :00 No [id number] 1 tablet DAILY 1 tablet DAILY (route: oral) Med Classific ation: Electroly te Balance-N utritiona l Products finasteride 5 mg tablet 10-26 00:00: 00 04-01 23:59 :00 No [id number] 1 tablet DAILY 1 tablet DAILY (route: oral) Med Classific ation: Genitouri nary Therapy furosemide 40 mg tablet 10-26 00:00: 00 04-01 23:59 :00 No [id number] 1 tablet 2 TIMES DAILY 1 tablet 2 TIMES DAILY (route: oral) Med Classific ation: Cardiovas cular Therapy Agents magnesium 400 mg (as magnesium oxide) tablet 10-26 00:00: 00 04-01 23:59 :00 No [id number] 1 tablet DAILY 1 tablet DAILY (route: oral) Med Classific ation: Electroly te Balance-N utritiona l Products prednisolon e acetate 1 % eye drops,suspe nsion 10-26 00:00: 00 04-01 23:59 :00 No [id number] 1 drops 3 TIMES DAILY 1 drops 3 TIMES DAILY (route: ophthalmic (eye)) Med Classific ation: Ophthalmi c Agents ropinirole 0.25 mg tablet 09-28 00:00: 00 04-01 23:59 :00 No [id number] Per instruc tions DIRECTED Per instructio ns DIRECTED (route: oral) Med Classific ation: Central Nervous System Agents venlafaxine ER 225 mg tablet,exte nded release 24 hr 10-26 00:00: 00 04-01 23:59 :00 No [id number] 1 tablet DAILY 1 tablet DAILY (route: oral) Med Classific ation: Central Nervous System Agents Vitamin D3 125 mcg (5,000 unit) tablet 09-28 00:00: 00 04-01 23:59 :00 No [id number] 1 tablet DAILY 1 tablet DAILY (route: oral) Med Classific ation: Electroly te Balance-N utritiona l Products clonazepam 0.5 mg tablet 2023-04 0-11 00:00: 00 04-01 23:59 :00 No [id number] Per instruc tions BEDTIME Per instructio ns BEDTIME (route: oral) Med Classific ation: Central Nervous System Agents acetaminoph en 325 mg tablet 04-30 00:00: 00 06-27 23:59 :00 No [id number] 2 tablet EVERY 4 HOURS 2 tablet EVERY 4 HOURS (route: oral) Med Classific ation: Analgesic , Anti-infl ammatory or Antipyret ic albuterol sulfate HFA 90 mcg/actuati on aerosol inhaler 04-30 00:00: 00 06-27 23:59 :00 No [id number] 2 puff EVERY 6 HOURS 2 puff EVERY 6 HOURS (route: inhalation ) Med Classific ation: Respirato ry Therapy Agents amantadine HCl 100 mg tablet 04-30 00:00: 00 06-27 23:59 :00 No [id number] 1 tablet DAILY 1 tablet DAILY (route: oral) Med Classific ation: Central Nervous System Agents amoxicillin 500 mg capsule 04-30 00:00: 00 06-27 23:59 :00 No [id number] 4 capsule DIRECTED 4 capsule DIRECTED (route: oral) Med Classific ation: Anti-Infe ctive Agents Breo Ellipta 100 mcg-25 mcg/dose powder for inhalation 04-30 00:00: 00 06-27 23:59 :00 No [id number] 1 inhalat ion DAILY 1 inhalation DAILY (route: inhalation ) Med Classific ation: Respirato ry Therapy Agents clonazepam 0.5 mg tablet 04-30 00:00: 00 06-27 23:59 :00 No [id number] 1 tablet BEDTIME 1 tablet BEDTIME (route: oral) Med Classific ation: Central Nervous System Agents docusate sodium 100 mg capsule 04-30 00:00: 00 06-27 23:59 :00 No [id number] 1 capsule 2 TIMES DAILY 1 capsule 2 TIMES DAILY (route: oral) Med Classific ation: Gastroint estinal Therapy Agents Eliquis 5 mg tablet 04-30 00:00: 00 06-27 23:59 :00 No [id number] 1 tablet 2 TIMES DAILY 1 tablet 2 TIMES DAILY (route: oral) Med Classific ation: Hematolog ical Agents finasteride 5 mg tablet 04-30 00:00: 00 06-27 23:59 :00 No [id number] 1 tablet DAILY 1 tablet DAILY (route: oral) Med Classific ation: Genitouri nary Therapy gabapentin 100 mg capsule 04-30 00:00: 00 06-27 23:59 :00 No [id number] 1 capsule DAILY 1 capsule DAILY (route: oral) Med Classific ation: Central Nervous System Agents gabapentin 300 mg capsule - 00:00: 00 06-27 23:59 :00 No [id number] 1 capsule BEDTIME 1 capsule BEDTIME (route: oral) Med Classific ation: Central Nervous System Agents mirtazapine 45 mg tablet - 00:00: 00 06-27 23:59 :00 No [id number] 1 tablet BEDTIME 1 tablet BEDTIME (route: oral) Med Classific ation: Central Nervous System Agents pantoprazol e 40 mg tablet,baltazar yed release - 00:00: 00 06-27 23:59 :00 No [id number] 1 tablet DAILY 1 tablet DAILY (route: oral) Med Classific ation: Gastroint estinal Therapy Agents ropinirole 0.25 mg tablet 04-30 00:00: 00 06-27 23:59 :00 No [id number] 1-4 tablet DIRECTED 1-4 tablet DIRECTED (route: oral) Med Classific ation: Central Nervous System Agents Rytary 36.25 mg-145 mg capsule,ext ended release 04-30 00:00: 00 06-27 23:59 :00 No [id number] 2 capsule 4 TIMES DAILY 2 capsule 4 TIMES DAILY (route: oral) Med Classific ation: Central Nervous System Agents venlafaxine ER 225 mg tablet,exte nded release 24 hr - 00:00: 00 06-27 23:59 :00 No [id number] 1 tablet BEDTIME 1 tablet BEDTIME (route: oral) Med Classific ation: Central Nervous System Agents amantadine HCl 100 mg capsule 3-04 00:00: 00 Yes [id number] 1 capsule DAILY 1 capsule DAILY (route: oral) Med Classific ation: Central Nervous System Agents clonazepam 0.5 mg tablet 3-04 00:00: 00 Yes [id number] 1 tablet BEDTIME 1 tablet BEDTIME (route: oral) Med Classific ation: Central Nervous System Agents Eliquis 5 mg tablet 3-04 00:00: 00 Yes [id number] 1 tablet 2 TIMES DAILY 1 tablet 2 TIMES DAILY (route: oral) Med Classific ation: Hematolog ical Agents finasteride 5 mg tablet 06-29 00:00: 00 Yes [id number] 1 tablet DAILY 1 tablet DAILY (route: oral) Med Classific ation: Genitouri nary Therapy gabapentin 100 mg capsule 06-29 00:00: 00 Yes [id number] 1 capsule DAILY 1 capsule DAILY (route: oral) Med Classific ation: Central Nervous System Agents gabapentin 300 mg capsule 06-29 00:00: 00 Yes [id number] 1 capsule BEDTIME 1 capsule BEDTIME (route: oral) Med Classific ation: Central Nervous System Agents mirtazapine 45 mg tablet 06-29 00:00: 00 Yes [id number] 1 tablet DAILY 1 tablet DAILY (route: oral) Med Classific ation: Central Nervous System Agents pantoprazol e 40 mg tablet,baltazar yed release 06-29 00:00: 00 10-21 23:59 :00 No [id number] 1 tablet DAILY 1 tablet DAILY (route: oral) Med Classific ation: Gastroint estinal Therapy Agents ropinirole 0.25 mg tablet 06-29 00:00: 00 Yes [id number] 2 tablet DAILY 2 tablet DAILY (route: oral) Med Classific ation: Central Nervous System Agents Rytary 36.25 mg-145 mg capsule,ext ended release 06-29 00:00: 00 Yes [id number] 3 capsule 4 TIMES DAILY 3 capsule 4 TIMES DAILY (route: oral) Med Classific ation: Central Nervous System Agents venlafaxine ER 225 mg tablet,exte nded release 24 hr 06-29 00:00: 00 Yes [id number] 1 tablet DAILY 1 tablet DAILY (route: oral) Med Classific ation: Central Nervous System Agents albuterol sulfate HFA 90 mcg/actuati on aerosol inhaler 06-29 00:00: 00 Yes [id number] 2 puff EVERY 6 HOURS 2 puff EVERY 6 HOURS (route: inhalation ) Med Classific ation: Respirato ry Therapy Agents Breo Ellipta 100 mcg-25 mcg/dose powder for inhalation 3-04 00:00: 00 Yes [id number] 1 inhalat ion DAILY 1 inhalation DAILY (route: inhalation ) Med Classific ation: Respirato ry Therapy Agents pantoprazol e 40 mg tablet,baltazar yed release 3- 00:00: 00 10-21 23:59 :00 No [id number] 1 tablet 2 TIMES DAILY 1 tablet 2 TIMES DAILY (route: oral) Med Classific ation: Gastroint estinal Therapy Agents fluconazole 200 mg tablet - 00:00: 00 Yes [id number] 200 mg DAILY 200 mg DAILY (route: oral) Alternate Route: SUBLINGUA L. Med Classific ation: Anti-Infe ctive Agents Carafate 100 mg/mL oral suspension 10-26 00:00: 00 Yes [id number] 10 mL 4 TIMES DAILY 10 mL 4 TIMES DAILY (route: oral) Med Classific ation: Gastroint estinal Therapy Agents Voquezna 20 mg tablet 10-26 00:00: 00 12-03 00:58 :03.3 47 No [id number] 1 tablet 2 TIMES DAILY 1 tablet 2 TIMES DAILY (route: oral) Med Classific ation: Gastroint estinal Therapy Agents Voquezna 20 mg tablet 10-21 00:00: 00 Yes [id number] 1 tablet 2 TIMES DAILY 1 tablet [...] MAINTAIN SITUATIONAL AWARENESS AND WILL NOTIFY CLINICAL TREAD CUTTER AND PHYSICIAN/PROVIDER WITH ANY CHANGE IN CONDITION. [code = SKILLED NURSE TO PERFORM ENVIRONMENTAL SAFETY RISK ASSESSMENT AND FALL RISK ASSESSMENT AND PROVIDE INSTRUCTION TO IMPLEMENT ENVIRONMENTAL SAFETY AND FALL PREVENTION STRATEGIES THROUGHOUT THE CERTIFICATION PERIOD. SKILLED NURSE WILL MAINTAIN SITUATIONAL AWARENESS AND WILL NOTIFY CLINICAL TREAD CUTTER AND PHYSICIAN/PROVIDER WITH ANY CHANGE IN CONDITION.] [...] LASIX PATIENT LIVING SITUATION/CAREGIVER STATUS: [facility] SUMMARIZE SKILLED NEED: DISEASE [...] End Date/Time Encounter Type Admission Type Attending [facility] Care Department Encounter ID Discharge Date Discharge Status Discharge Condition Discharge Reason Percent Goals Met 2025-02-24 00:00:00 2025-04-24 00:00:00 Outpatient RECERTIFIC ATION DEMETRI SLAUGHTER [facility] [id number] 6.25
--- OUTSIDE RECORDS SUMMARY | 2025-04-23 19:00 | XMS_ITS | Clinical Summary ---
Author Organization Unknown Care Team Providers Care Clinical Training Specialist Name Role Phone DARIAN DANGELO, ANYA Unavailable Unavaila aleisha CHRISTENSEN HEADING SAW OPERATOR/HVAC CONTROLS TECHNICIAN, RENAN Unavailable Unava susie SLAUGHTER RN, DEMETRI Unavailable Unavailable Payers Payer Name Policy Type Policy Number Effective Date Expira tion Date MEDICARE - [facility] [place] - PD [id number] Problems Condition Name Condition Details Condition Category [...] 01-11 00:00: 00 01-18 23:59 :00 No [id number] 1 tablet 2 TIMES DAILY 1 tablet 2 TIMES DAILY (route: oral) Med Classific ation: Anti-Infe ctive Agents lactulose 10 gram/15 mL oral solution 01-11 00:00: 00 04-01 23:59 :00 No [id number] 30 g DAILY 30 g DAILY (route: oral) Med Classific ation: Gastroint estinal Therapy Agents Rytary 36.25 mg-145 mg capsule,ext ended release 13 00:00: 00 04-01 23:59 :00 No [id number] 4 capsule 4 TIMES DAILY 4 capsule 4 TIMES DAILY (route: oral) Med Classific ation: Central Nervous System Agents Breo Ellipta 100 mcg-25 mcg/dose powder for inhalation - 00:00: 00 04-01 23:59 :00 No [id number] 1 inhalat ion ONCE DAILY 1 inhalation ONCE DAILY (route: inhalation ) Med Classific ation: Respirato ry Therapy Agents mirtazapine 45 mg tablet 12-12 00:00: 00 04-01 23:59 :00 No [id number] 1 tablet DAILY 1 tablet DAILY (route: oral) Med Classific ation: Central Nervous System Agents docusate sodium 100 mg capsule 16 00:00: 00 04-01 23:59 :00 No [id number] 1 capsule 2 TIMES DAILY 1 capsule 2 TIMES DAILY (route: oral) Med Classific ation: Gastroint estinal Therapy Agents Eliquis 5 mg tablet 10-26 00:00: 00 04-01 23:59 :00 No [id number] 1 tablet 2 TIMES DAILY 1 tablet 2 TIMES DAILY (route: oral) Med Classific ation: Hematolog ical Agents ferrous sulfate 325 mg (65 mg iron) tablet 10-26 00:00: 00 04-01 23:59 :00 No [id number] 1 tablet DAILY 1 tablet DAILY (route: oral) Med Classific ation: Electroly te Balance-N utritiona l Products finasteride 5 mg tablet 10-26 00:00: 00 04-01 23:59 :00 No [id number] 1 tablet DAILY 1 tablet DAILY (route: oral) Med Classific ation: Genitouri nary Therapy furosemide 40 mg tablet 10-26 00:00: 00 04-01 23:59 :00 No [id number] 1 tablet 2 TIMES DAILY 1 tablet 2 TIMES DAILY (route: oral) Med Classific ation: Cardiovas cular Therapy Agents magnesium 400 mg (as magnesium oxide) tablet 10-26 00:00: 00 04-01 23:59 :00 No [id number] 1 tablet DAILY 1 tablet DAILY (route: oral) Med Classific ation: Electroly te Balance-N utritiona l Products prednisolon e acetate 1 % eye drops,suspe nsion 10-26 00:00: 00 04-01 23:59 :00 No [id number] 1 drops 3 TIMES DAILY 1 drops 3 TIMES DAILY (route: ophthalmic (eye)) Med Classific ation: Ophthalmi c Agents ropinirole 0.25 mg tablet 09-28 00:00: 00 04-01 23:59 :00 No [id number] Per instruc tions DIRECTED Per instructio ns DIRECTED (route: oral) Med Classific ation: Central Nervous System Agents venlafaxine ER 225 mg tablet,exte nded release 24 hr 10-26 00:00: 00 04-01 23:59 :00 No [id number] 1 tablet DAILY 1 tablet DAILY (route: oral) Med Classific ation: Central Nervous System Agents Vitamin D3 125 mcg (5,000 unit) tablet 09-28 00:00: 00 04-01 23:59 :00 No [id number] 1 tablet DAILY 1 tablet DAILY (route: oral) Med Classific ation: Electroly te Balance-N utritiona l Products clonazepam 0.5 mg tablet 2023-04 0-11 00:00: 00 04-01 23:59 :00 No [id number] Per instruc tions BEDTIME Per instructio ns BEDTIME (route: oral) Med Classific ation: Central Nervous System Agents acetaminoph en 325 mg tablet 04-30 00:00: 00 06-27 23:59 :00 No [id number] 2 tablet EVERY 4 HOURS 2 tablet EVERY 4 HOURS (route: oral) Med Classific ation: Analgesic , Anti-infl ammatory or Antipyret ic albuterol sulfate HFA 90 mcg/actuati on aerosol inhaler 04-30 00:00: 00 06-27 23:59 :00 No [id number] 2 puff EVERY 6 HOURS 2 puff EVERY 6 HOURS (route: inhalation ) Med Classific ation: Respirato ry Therapy Agents amantadine HCl 100 mg tablet 04-30 00:00: 00 06-27 23:59 :00 No [id number] 1 tablet DAILY 1 tablet DAILY (route: oral) Med Classific ation: Central Nervous System Agents amoxicillin 500 mg capsule 04-30 00:00: 00 06-27 23:59 :00 No [id number] 4 capsule DIRECTED 4 capsule DIRECTED (route: oral) Med Classific ation: Anti-Infe ctive Agents Breo Ellipta 100 mcg-25 mcg/dose powder for inhalation 04-30 00:00: 00 06-27 23:59 :00 No [id number] 1 inhalat ion DAILY 1 inhalation DAILY (route: inhalation ) Med Classific ation: Respirato ry Therapy Agents clonazepam 0.5 mg tablet 04-30 00:00: 00 06-27 23:59 :00 No [id number] 1 tablet BEDTIME 1 tablet BEDTIME (route: oral) Med Classific ation: Central Nervous System Agents docusate sodium 100 mg capsule 04-30 00:00: 00 06-27 23:59 :00 No [id number] 1 capsule 2 TIMES DAILY 1 capsule 2 TIMES DAILY (route: oral) Med Classific ation: Gastroint estinal Therapy Agents Eliquis 5 mg tablet 04-30 00:00: 00 06-27 23:59 :00 No [id number] 1 tablet 2 TIMES DAILY 1 tablet 2 TIMES DAILY (route: oral) Med Classific ation: Hematolog ical Agents finasteride 5 mg tablet 04-30 00:00: 00 06-27 23:59 :00 No [id number] 1 tablet DAILY 1 tablet DAILY (route: oral) Med Classific ation: Genitouri nary Therapy gabapentin 100 mg capsule 04-30 00:00: 00 06-27 23:59 :00 No [id number] 1 capsule DAILY 1 capsule DAILY (route: oral) Med Classific ation: Central Nervous System Agents gabapentin 300 mg capsule - 00:00: 00 06-27 23:59 :00 No [id number] 1 capsule BEDTIME 1 capsule BEDTIME (route: oral) Med Classific ation: Central Nervous System Agents mirtazapine 45 mg tablet - 00:00: 00 06-27 23:59 :00 No [id number] 1 tablet BEDTIME 1 tablet BEDTIME (route: oral) Med Classific ation: Central Nervous System Agents pantoprazol e 40 mg tablet,baltazar yed release - 00:00: 00 06-27 23:59 :00 No [id number] 1 tablet DAILY 1 tablet DAILY (route: oral) Med Classific ation: Gastroint estinal Therapy Agents ropinirole 0.25 mg tablet 04-30 00:00: 00 06-27 23:59 :00 No [id number] 1-4 tablet DIRECTED 1-4 tablet DIRECTED (route: oral) Med Classific ation: Central Nervous System Agents Rytary 36.25 mg-145 mg capsule,ext ended release 04-30 00:00: 00 06-27 23:59 :00 No [id number] 2 capsule 4 TIMES DAILY 2 capsule 4 TIMES DAILY (route: oral) Med Classific ation: Central Nervous System Agents venlafaxine ER 225 mg tablet,exte nded release 24 hr - 00:00: 00 06-27 23:59 :00 No [id number] 1 tablet BEDTIME 1 tablet BEDTIME (route: oral) Med Classific ation: Central Nervous System Agents amantadine HCl 100 mg capsule 3-04 00:00: 00 Yes [id number] 1 capsule DAILY 1 capsule DAILY (route: oral) Med Classific ation: Central Nervous System Agents clonazepam 0.5 mg tablet 3-04 00:00: 00 Yes [id number] 1 tablet BEDTIME 1 tablet BEDTIME (route: oral) Med Classific ation: Central Nervous System Agents Eliquis 5 mg tablet 3-04 00:00: 00 Yes [id number] 1 tablet 2 TIMES DAILY 1 tablet 2 TIMES DAILY (route: oral) Med Classific ation: Hematolog ical Agents finasteride 5 mg tablet 06-29 00:00: 00 Yes [id number] 1 tablet DAILY 1 tablet DAILY (route: oral) Med Classific ation: Genitouri nary Therapy gabapentin 100 mg capsule 06-29 00:00: 00 Yes [id number] 1 capsule DAILY 1 capsule DAILY (route: oral) Med Classific ation: Central Nervous System Agents gabapentin 300 mg capsule 06-29 00:00: 00 Yes [id number] 1 capsule BEDTIME 1 capsule BEDTIME (route: oral) Med Classific ation: Central Nervous System Agents mirtazapine 45 mg tablet 06-29 00:00: 00 Yes [id number] 1 tablet DAILY 1 tablet DAILY (route: oral) Med Classific ation: Central Nervous System Agents pantoprazol e 40 mg tablet,baltazar yed release 06-29 00:00: 00 10-21 23:59 :00 No [id number] 1 tablet DAILY 1 tablet DAILY (route: oral) Med Classific ation: Gastroint estinal Therapy Agents ropinirole 0.25 mg tablet 06-29 00:00: 00 Yes [id number] 2 tablet DAILY 2 tablet DAILY (route: oral) Med Classific ation: Central Nervous System Agents Rytary 36.25 mg-145 mg capsule,ext ended release 06-29 00:00: 00 Yes [id number] 3 capsule 4 TIMES DAILY 3 capsule 4 TIMES DAILY (route: oral) Med Classific ation: Central Nervous System Agents venlafaxine ER 225 mg tablet,exte nded release 24 hr 06-29 00:00: 00 Yes [id number] 1 tablet DAILY 1 tablet DAILY (route: oral) Med Classific ation: Central Nervous System Agents albuterol sulfate HFA 90 mcg/actuati on aerosol inhaler 06-29 00:00: 00 Yes [id number] 2 puff EVERY 6 HOURS 2 puff EVERY 6 HOURS (route: inhalation ) Med Classific ation: Respirato ry Therapy Agents Breo Ellipta 100 mcg-25 mcg/dose powder for inhalation 3-04 00:00: 00 Yes [id number] 1 inhalat ion DAILY 1 inhalation DAILY (route: inhalation ) Med Classific ation: Respirato ry Therapy Agents pantoprazol e 40 mg tablet,baltazar yed release 3- 00:00: 00 10-21 23:59 :00 No [id number] 1 tablet 2 TIMES DAILY 1 tablet 2 TIMES DAILY (route: oral) Med Classific ation: Gastroint estinal Therapy Agents fluconazole 200 mg tablet - 00:00: 00 Yes [id number] 200 mg DAILY 200 mg DAILY (route: oral) Alternate Route: SUBLINGUA L. Med Classific ation: Anti-Infe ctive Agents Carafate 100 mg/mL oral suspension 10-26 00:00: 00 Yes [id number] 10 mL 4 TIMES DAILY 10 mL 4 TIMES DAILY (route: oral) Med Classific ation: Gastroint estinal Therapy Agents Voquezna 20 mg tablet 10-26 00:00: 00 12-03 00:58 :03.3 47 No [id number] 1 tablet 2 TIMES DAILY 1 tablet 2 TIMES DAILY (route: oral) Med Classific ation: Gastroint estinal Therapy Agents Voquezna 20 mg tablet 10-21 00:00: 00 Yes [id number] 1 tablet 2 TIMES DAILY 1 tablet [...] BLOCKAGE/LEAKAGE, HEAVY SEDIMENT. 1 - 3 PRN [facility] VISITS FOR CATHETER CHANGE(S) AND/OR TROUBLESHOOTING. [code = SKILLED NURSE TO INSTRUCT PATIENT/CAREGIVER AND PERFORM CARE AND MANAGEMENT OF INDWELLING URINARY CATHETER. [place] CATHETER INSERTION WITH 18 FR CATHETER WITH 10 ML BALLOON VIA STERILE TECHNIQUE, CHANGE Q 4 WEEKS AND PRN FOR LEAKING OR MALFUNCTIONING CATHETER. IRRIGATE URINARY CATHETER WITH 30-60CC NORMAL SALINE PRN BLOCKAGE/LEAKAGE, HEAVY SEDIMENT. 1 - 3 PRN [facility] VISITS FOR CATHETER CHANGE(S) AND/OR TROUBLESHOOTING.] Future [...] MAINTAIN SITUATIONAL AWARENESS AND WILL NOTIFY CLINICAL SEED MILL SUPERINTENDENT AND PHYSICIAN/PROVIDER WITH ANY CHANGE IN CONDITION. [code = SKILLED NURSE TO PERFORM ENVIRONMENTAL SAFETY RISK ASSESSMENT AND FALL RISK ASSESSMENT AND PROVIDE INSTRUCTION TO IMPLEMENT ENVIRONMENTAL SAFETY AND FALL PREVENTION STRATEGIES THROUGHOUT THE CERTIFICATION PERIOD. SKILLED NURSE WILL MAINTAIN SITUATIONAL AWARENESS AND WILL NOTIFY CLINICAL SEED MILL SUPERINTENDENT AND PHYSICIAN/PROVIDER WITH ANY CHANGE IN CONDITION.] [...] LASIX PATIENT LIVING SITUATION/CAREGIVER STATUS: [facility] SUMMAR[facility] SKILLED NEED: [...] CARE WILL BE ESTABLISHED THAT MEETS PATIENT'S [facility] NEEDS AND INCLUDES PATIENT GOAL FOR HOME [...] End Date/Time Encounter Type Admission Type Attending [facility] Care Department Encounter ID Discharge Date Discharge Status Discharge Condition Discharge Reason Percent Goals Met 2025-02-24 00:00:00 2025-04-24 00:00:00 Outpatient RECERTIFIC ATION DEMETRI SLAUGHTER [facility] [id number] 6.25
--- OUTSIDE RECORDS SUMMARY | 2025-04-23 19:00 | XMS_ITS | Clinical Summary ---
Author Organization Unknown Care Team Providers Care Trust Accounts Supervisor Name Role Phone DARIAN DANGELO, ANYA Unavailable Unavaila aleisha CHRISTENSEN TAX ASSESSOR/INDUSTRIAL PLANT CUSTODIAN, RENAN Unavailable Unava susie SLAUGHTER RN, DEMETRI Unavailable Unavailable Payers Payer Name Policy Type Policy Number Effective Date Expira tion Date MEDICARE - [facility] - PD [id number] Problems Condition Name Condition Details Condition Category [...] OF URINARY DEVICE Active 04-28 00:00: 00 HALFWAY (CURRENT) USE OF ANTICOAGULAN TS Active 04-28 [...] 01-11 00:00: 00 01-18 23:59 :00 No [id number] 1 tablet 2 TIMES DAILY 1 tablet 2 TIMES DAILY (route: oral) Med Classific ation: Anti-Infe ctive Agents lactulose 10 gram/15 mL oral solution 01-11 00:00: 00 04-01 23:59 :00 No [id number] 30 g DAILY 30 g DAILY (route: oral) Med Classific ation: Gastroint estinal Therapy Agents Rytary 36.25 mg-145 mg capsule,ext ended release 13 00:00: 00 04-01 23:59 :00 No [id number] 4 capsule 4 TIMES DAILY 4 capsule 4 TIMES DAILY (route: oral) Med Classific ation: Central Nervous System Agents Breo Ellipta 100 mcg-25 mcg/dose powder for inhalation - 00:00: 00 04-01 23:59 :00 No [id number] 1 inhalat ion ONCE DAILY 1 inhalation ONCE DAILY (route: inhalation ) Med Classific ation: Respirato ry Therapy Agents mirtazapine 45 mg tablet 12-12 00:00: 00 04-01 23:59 :00 No [id number] 1 tablet DAILY 1 tablet DAILY (route: oral) Med Classific ation: Central Nervous System Agents docusate sodium 100 mg capsule 16 00:00: 00 04-01 23:59 :00 No [id number] 1 capsule 2 TIMES DAILY 1 capsule 2 TIMES DAILY (route: oral) Med Classific ation: Gastroint estinal Therapy Agents Eliquis 5 mg tablet 10-26 00:00: 00 04-01 23:59 :00 No [id number] 1 tablet 2 TIMES DAILY 1 tablet 2 TIMES DAILY (route: oral) Med Classific ation: Hematolog ical Agents ferrous sulfate 325 mg (65 mg iron) tablet 10-26 00:00: 00 04-01 23:59 :00 No [id number] 1 tablet DAILY 1 tablet DAILY (route: oral) Med Classific ation: Electroly te Balance-N utritiona l Products finasteride 5 mg tablet 10-26 00:00: 00 04-01 23:59 :00 No [id number] 1 tablet DAILY 1 tablet DAILY (route: oral) Med Classific ation: Genitouri nary Therapy furosemide 40 mg tablet 10-26 00:00: 00 04-01 23:59 :00 No [id number] 1 tablet 2 TIMES DAILY 1 tablet 2 TIMES DAILY (route: oral) Med Classific ation: Cardiovas cular Therapy Agents magnesium 400 mg (as magnesium oxide) tablet 10-26 00:00: 00 04-01 23:59 :00 No [id number] 1 tablet DAILY 1 tablet DAILY (route: oral) Med Classific ation: Electroly te Balance-N utritiona l Products prednisolon e acetate 1 % eye drops,suspe nsion 10-26 00:00: 00 04-01 23:59 :00 No [id number] 1 drops 3 TIMES DAILY 1 drops 3 TIMES DAILY (route: ophthalmic (eye)) Med Classific ation: Ophthalmi c Agents ropinirole 0.25 mg tablet 09-28 00:00: 00 04-01 23:59 :00 No [id number] Per instruc tions DIRECTED Per instructio ns DIRECTED (route: oral) Med Classific ation: Central Nervous System Agents venlafaxine ER 225 mg tablet,exte nded release 24 hr 10-26 00:00: 00 04-01 23:59 :00 No [id number] 1 tablet DAILY 1 tablet DAILY (route: oral) Med Classific ation: Central Nervous System Agents Vitamin D3 125 mcg (5,000 unit) tablet 09-28 00:00: 00 04-01 23:59 :00 No [id number] 1 tablet DAILY 1 tablet DAILY (route: oral) Med Classific ation: Electroly te Balance-N utritiona l Products clonazepam 0.5 mg tablet 2023-04 0-11 00:00: 00 04-01 23:59 :00 No [id number] Per instruc tions BEDTIME Per instructio ns BEDTIME (route: oral) Med Classific ation: Central Nervous System Agents acetaminoph en 325 mg tablet 04-30 00:00: 00 06-27 23:59 :00 No [id number] 2 tablet EVERY 4 HOURS 2 tablet EVERY 4 HOURS (route: oral) Med Classific ation: Analgesic , Anti-infl ammatory or Antipyret ic albuterol sulfate HFA 90 mcg/actuati on aerosol inhaler 04-30 00:00: 00 06-27 23:59 :00 No [id number] 2 puff EVERY 6 HOURS 2 puff EVERY 6 HOURS (route: inhalation ) Med Classific ation: Respirato ry Therapy Agents amantadine HCl 100 mg tablet 04-30 00:00: 00 06-27 23:59 :00 No [id number] 1 tablet DAILY 1 tablet DAILY (route: oral) Med Classific ation: Central Nervous System Agents amoxicillin 500 mg capsule 04-30 00:00: 00 06-27 23:59 :00 No [id number] 4 capsule DIRECTED 4 capsule DIRECTED (route: oral) Med Classific ation: Anti-Infe ctive Agents Breo Ellipta 100 mcg-25 mcg/dose powder for inhalation 04-30 00:00: 00 06-27 23:59 :00 No [id number] 1 inhalat ion DAILY 1 inhalation DAILY (route: inhalation ) Med Classific ation: Respirato ry Therapy Agents clonazepam 0.5 mg tablet 04-30 00:00: 00 06-27 23:59 :00 No [id number] 1 tablet BEDTIME 1 tablet BEDTIME (route: oral) Med Classific ation: Central Nervous System Agents docusate sodium 100 mg capsule 04-30 00:00: 00 06-27 23:59 :00 No [id number] 1 capsule 2 TIMES DAILY 1 capsule 2 TIMES DAILY (route: oral) Med Classific ation: Gastroint estinal Therapy Agents Eliquis 5 mg tablet 04-30 00:00: 00 06-27 23:59 :00 No [id number] 1 tablet 2 TIMES DAILY 1 tablet 2 TIMES DAILY (route: oral) Med Classific ation: Hematolog ical Agents finasteride 5 mg tablet 04-30 00:00: 00 06-27 23:59 :00 No [id number] 1 tablet DAILY 1 tablet DAILY (route: oral) Med Classific ation: Genitouri nary Therapy gabapentin 100 mg capsule 04-30 00:00: 00 06-27 23:59 :00 No [id number] 1 capsule DAILY 1 capsule DAILY (route: oral) Med Classific ation: Central Nervous System Agents gabapentin 300 mg capsule - 00:00: 00 06-27 23:59 :00 No [id number] 1 capsule BEDTIME 1 capsule BEDTIME (route: oral) Med Classific ation: Central Nervous System Agents mirtazapine 45 mg tablet - 00:00: 00 06-27 23:59 :00 No [id number] 1 tablet BEDTIME 1 tablet BEDTIME (route: oral) Med Classific ation: Central Nervous System Agents pantoprazol e 40 mg tablet,baltazar yed release - 00:00: 00 06-27 23:59 :00 No [id number] 1 tablet DAILY 1 tablet DAILY (route: oral) Med Classific ation: Gastroint estinal Therapy Agents ropinirole 0.25 mg tablet 04-30 00:00: 00 06-27 23:59 :00 No [id number] 1-4 tablet DIRECTED 1-4 tablet DIRECTED (route: oral) Med Classific ation: Central Nervous System Agents Rytary 36.25 mg-145 mg capsule,ext ended release 04-30 00:00: 00 06-27 23:59 :00 No [id number] 2 capsule 4 TIMES DAILY 2 capsule 4 TIMES DAILY (route: oral) Med Classific ation: Central Nervous System Agents venlafaxine ER 225 mg tablet,exte nded release 24 hr - 00:00: 00 06-27 23:59 :00 No [id number] 1 tablet BEDTIME 1 tablet BEDTIME (route: oral) Med Classific ation: Central Nervous System Agents amantadine HCl 100 mg capsule 3-04 00:00: 00 Yes [id number] 1 capsule DAILY 1 capsule DAILY (route: oral) Med Classific ation: Central Nervous System Agents clonazepam 0.5 mg tablet 3-04 00:00: 00 Yes [id number] 1 tablet BEDTIME 1 tablet BEDTIME (route: oral) Med Classific ation: Central Nervous System Agents Eliquis 5 mg tablet 3-04 00:00: 00 Yes [id number] 1 tablet 2 TIMES DAILY 1 tablet 2 TIMES DAILY (route: oral) Med Classific ation: Hematolog ical Agents finasteride 5 mg tablet 06-29 00:00: 00 Yes [id number] 1 tablet DAILY 1 tablet DAILY (route: oral) Med Classific ation: Genitouri nary Therapy gabapentin 100 mg capsule 06-29 00:00: 00 Yes [id number] 1 capsule DAILY 1 capsule DAILY (route: oral) Med Classific ation: Central Nervous System Agents gabapentin 300 mg capsule 06-29 00:00: 00 Yes [id number] 1 capsule BEDTIME 1 capsule BEDTIME (route: oral) Med Classific ation: Central Nervous System Agents mirtazapine 45 mg tablet 06-29 00:00: 00 Yes [id number] 1 tablet DAILY 1 tablet DAILY (route: oral) Med Classific ation: Central Nervous System Agents pantoprazol e 40 mg tablet,baltazar yed release 06-29 00:00: 00 10-21 23:59 :00 No [id number] 1 tablet DAILY 1 tablet DAILY (route: oral) Med Classific ation: Gastroint estinal Therapy Agents ropinirole 0.25 mg tablet 06-29 00:00: 00 Yes [id number] 2 tablet DAILY 2 tablet DAILY (route: oral) Med Classific ation: Central Nervous System Agents Rytary 36.25 mg-145 mg capsule,ext ended release 06-29 00:00: 00 Yes [id number] 3 capsule 4 TIMES DAILY 3 capsule 4 TIMES DAILY (route: oral) Med Classific ation: Central Nervous System Agents venlafaxine ER 225 mg tablet,exte nded release 24 hr 06-29 00:00: 00 Yes [id number] 1 tablet DAILY 1 tablet DAILY (route: oral) Med Classific ation: Central Nervous System Agents albuterol sulfate HFA 90 mcg/actuati on aerosol inhaler 06-29 00:00: 00 Yes [id number] 2 puff EVERY 6 HOURS 2 puff EVERY 6 HOURS (route: inhalation ) Med Classific ation: Respirato ry Therapy Agents Breo Ellipta 100 mcg-25 mcg/dose powder for inhalation 3-04 00:00: 00 Yes [id number] 1 inhalat ion DAILY 1 inhalation DAILY (route: inhalation ) Med Classific ation: Respirato ry Therapy Agents pantoprazol e 40 mg tablet,baltazar yed release 3- 00:00: 00 10-21 23:59 :00 No [id number] 1 tablet 2 TIMES DAILY 1 tablet 2 TIMES DAILY (route: oral) Med Classific ation: Gastroint estinal Therapy Agents fluconazole 200 mg tablet - 00:00: 00 Yes [id number] 200 mg DAILY 200 mg DAILY (route: oral) Alternate Route: SUBLINGUA L. Med Classific ation: Anti-Infe ctive Agents Carafate 100 mg/mL oral suspension 10-26 00:00: 00 Yes [id number] 10 mL 4 TIMES DAILY 10 mL 4 TIMES DAILY (route: oral) Med Classific ation: Gastroint estinal Therapy Agents Voquezna 20 mg tablet 10-26 00:00: 00 12-03 00:58 :03.3 47 No [id number] 1 tablet 2 TIMES DAILY 1 tablet 2 TIMES DAILY (route: oral) Med Classific ation: Gastroint estinal Therapy Agents Voquezna 20 mg tablet 10-21 00:00: 00 Yes [id number] 1 tablet 2 TIMES DAILY 1 tablet [...] BLOCKAGE/LEAKAGE, HEAVY SEDIMENT. 1 - 3 PRN SENIOR CARE VISITS FOR CATHETER CHANGE(S) AND/OR TROUBLESHOOTING. [code = SKILLED NURSE TO INSTRUCT PATIENT/CAREGIVER AND PERFORM CARE AND MANAGEMENT OF INDWELLING URINARY CATHETER. [place] CATHETER INSERTION WITH 18 FR CATHETER WITH 10 ML BALLOON VIA STERILE TECHNIQUE, CHANGE Q 4 WEEKS AND PRN FOR LEAKING OR MALFUNCTIONING CATHETER. IRRIGATE URINARY CATHETER WITH 30-60CC NORMAL SALINE PRN BLOCKAGE/LEAKAGE, HEAVY SEDIMENT. 1 - 3 PRN SENIOR CARE VISITS FOR CATHETER CHANGE(S) AND/OR TROUBLESHOOTING.] Future [...] MAINTAIN SITUATIONAL AWARENESS AND WILL NOTIFY CLINICAL [facility] NURSING DIRECTOR AND PHYSICIAN/PROVIDER WITH ANY CHANGE IN CONDITION. [code = SKILLED NURSE TO PERFORM ENVIRONMENTAL SAFETY RISK ASSESSMENT AND FALL RISK ASSESSMENT AND PROVIDE INSTRUCTION TO IMPLEMENT ENVIRONMENTAL SAFETY AND FALL PREVENTION STRATEGIES THROUGHOUT THE CERTIFICATION PERIOD. SKILLED NURSE WILL MAINTAIN SITUATIONAL AWARENESS AND WILL NOTIFY CLINICAL [facility] NURSING DIRECTOR AND PHYSICIAN/PROVIDER WITH ANY CHANGE IN CONDITION.] [...] LASIX PATIENT LIVING SITUATION/CAREGIVER STATUS: [facility] SUMMAR[facility] SKILLED NEED: DISEASE [...] CARE WILL BE ESTABLISHED THAT MEETS PATIENT'S SENIOR CARE NEEDS AND INCLUDES PATIENT GOAL FOR HOME [...] End Date/Time Encounter Type Admission Type Attending [facility] Care Department Encounter ID Discharge Date Discharge Status Discharge Condition Discharge Reason Percent Goals Met 2025-02-24 00:00:00 2025-04-24 00:00:00 Outpatient RECERTIFIC ATION DEMETRI SLAUGHTER [facility] [id number] 6.25
--- OUTSIDE RECORDS SUMMARY | 2025-04-23 19:00 | XMS_ITS | Clinical Summary ---
Author Organization Unknown Care Team Providers Care Carton Counter Feeder Name Role Phone DARIAN DANGELO, ANYA Unavailable Unavaila aleisha CHRISTENSEN INDIVIDUAL PENSION CONSULTANT/DIRECTOR SALES SUPPORT, RENAN Unavailable Unava susie SLAUGHTER RN, DEMETRI Unavailable Unavailable Payers Payer Name Policy Type Policy Number Effective Date Expira tion Date MEDICARE - [facility] - PD [id number] Problems Condition Name Condition Details Condition Category [...] OF URINARY DEVICE Active 04-28 00:00: 00 SKILLED NURSING (CURRENT) USE OF ANTICOAGULAN TS Active 04-28 [...] 01-11 00:00: 00 01-18 23:59 :00 No [id number] 1 tablet 2 TIMES DAILY 1 tablet 2 TIMES DAILY (route: oral) Med Classific ation: Anti-Infe ctive Agents lactulose 10 gram/15 mL oral solution 01-11 00:00: 00 04-01 23:59 :00 No [id number] 30 g DAILY 30 g DAILY (route: oral) Med Classific ation: Gastroint estinal Therapy Agents Rytary 36.25 mg-145 mg capsule,ext ended release 13 00:00: 00 04-01 23:59 :00 No [id number] 4 capsule 4 TIMES DAILY 4 capsule 4 TIMES DAILY (route: oral) Med Classific ation: Central Nervous System Agents Breo Ellipta 100 mcg-25 mcg/dose powder for inhalation - 00:00: 00 04-01 23:59 :00 No [id number] 1 inhalat ion ONCE DAILY 1 inhalation ONCE DAILY (route: inhalation ) Med Classific ation: Respirato ry Therapy Agents mirtazapine 45 mg tablet 12-12 00:00: 00 04-01 23:59 :00 No [id number] 1 tablet DAILY 1 tablet DAILY (route: oral) Med Classific ation: Central Nervous System Agents docusate sodium 100 mg capsule 16 00:00: 00 04-01 23:59 :00 No [id number] 1 capsule 2 TIMES DAILY 1 capsule 2 TIMES DAILY (route: oral) Med Classific ation: Gastroint estinal Therapy Agents Eliquis 5 mg tablet 10-26 00:00: 00 04-01 23:59 :00 No [id number] 1 tablet 2 TIMES DAILY 1 tablet 2 TIMES DAILY (route: oral) Med Classific ation: Hematolog ical Agents ferrous sulfate 325 mg (65 mg iron) tablet 10-26 00:00: 00 04-01 23:59 :00 No [id number] 1 tablet DAILY 1 tablet DAILY (route: oral) Med Classific ation: Electroly te Balance-N utritiona l Products finasteride 5 mg tablet 10-26 00:00: 00 04-01 23:59 :00 No [id number] 1 tablet DAILY 1 tablet DAILY (route: oral) Med Classific ation: Genitouri nary Therapy furosemide 40 mg tablet 10-26 00:00: 00 04-01 23:59 :00 No [id number] 1 tablet 2 TIMES DAILY 1 tablet 2 TIMES DAILY (route: oral) Med Classific ation: Cardiovas cular Therapy Agents magnesium 400 mg (as magnesium oxide) tablet 10-26 00:00: 00 04-01 23:59 :00 No [id number] 1 tablet DAILY 1 tablet DAILY (route: oral) Med Classific ation: Electroly te Balance-N utritiona l Products prednisolon e acetate 1 % eye drops,suspe nsion 10-26 00:00: 00 04-01 23:59 :00 No [id number] 1 drops 3 TIMES DAILY 1 drops 3 TIMES DAILY (route: ophthalmic (eye)) Med Classific ation: Ophthalmi c Agents ropinirole 0.25 mg tablet 09-28 00:00: 00 04-01 23:59 :00 No [id number] Per instruc tions DIRECTED Per instructio ns DIRECTED (route: oral) Med Classific ation: Central Nervous System Agents venlafaxine ER 225 mg tablet,exte nded release 24 hr 10-26 00:00: 00 04-01 23:59 :00 No [id number] 1 tablet DAILY 1 tablet DAILY (route: oral) Med Classific ation: Central Nervous System Agents Vitamin D3 125 mcg (5,000 unit) tablet 09-28 00:00: 00 04-01 23:59 :00 No [id number] 1 tablet DAILY 1 tablet DAILY (route: oral) Med Classific ation: Electroly te Balance-N utritiona l Products clonazepam 0.5 mg tablet 2023-04 0-11 00:00: 00 04-01 23:59 :00 No [id number] Per instruc tions BEDTIME Per instructio ns BEDTIME (route: oral) Med Classific ation: Central Nervous System Agents acetaminoph en 325 mg tablet 04-30 00:00: 00 06-27 23:59 :00 No [id number] 2 tablet EVERY 4 HOURS 2 tablet EVERY 4 HOURS (route: oral) Med Classific ation: Analgesic , Anti-infl ammatory or Antipyret ic albuterol sulfate HFA 90 mcg/actuati on aerosol inhaler 04-30 00:00: 00 06-27 23:59 :00 No [id number] 2 puff EVERY 6 HOURS 2 puff EVERY 6 HOURS (route: inhalation ) Med Classific ation: Respirato ry Therapy Agents amantadine HCl 100 mg tablet 04-30 00:00: 00 06-27 23:59 :00 No [id number] 1 tablet DAILY 1 tablet DAILY (route: oral) Med Classific ation: Central Nervous System Agents amoxicillin 500 mg capsule 04-30 00:00: 00 06-27 23:59 :00 No [id number] 4 capsule DIRECTED 4 capsule DIRECTED (route: oral) Med Classific ation: Anti-Infe ctive Agents Breo Ellipta 100 mcg-25 mcg/dose powder for inhalation 04-30 00:00: 00 06-27 23:59 :00 No [id number] 1 inhalat ion DAILY 1 inhalation DAILY (route: inhalation ) Med Classific ation: Respirato ry Therapy Agents clonazepam 0.5 mg tablet 04-30 00:00: 00 06-27 23:59 :00 No [id number] 1 tablet BEDTIME 1 tablet BEDTIME (route: oral) Med Classific ation: Central Nervous System Agents docusate sodium 100 mg capsule 04-30 00:00: 00 06-27 23:59 :00 No [id number] 1 capsule 2 TIMES DAILY 1 capsule 2 TIMES DAILY (route: oral) Med Classific ation: Gastroint estinal Therapy Agents Eliquis 5 mg tablet 04-30 00:00: 00 06-27 23:59 :00 No [id number] 1 tablet 2 TIMES DAILY 1 tablet 2 TIMES DAILY (route: oral) Med Classific ation: Hematolog ical Agents finasteride 5 mg tablet 04-30 00:00: 00 06-27 23:59 :00 No [id number] 1 tablet DAILY 1 tablet DAILY (route: oral) Med Classific ation: Genitouri nary Therapy gabapentin 100 mg capsule 04-30 00:00: 00 06-27 23:59 :00 No [id number] 1 capsule DAILY 1 capsule DAILY (route: oral) Med Classific ation: Central Nervous System Agents gabapentin 300 mg capsule - 00:00: 00 06-27 23:59 :00 No [id number] 1 capsule BEDTIME 1 capsule BEDTIME (route: oral) Med Classific ation: Central Nervous System Agents mirtazapine 45 mg tablet - 00:00: 00 06-27 23:59 :00 No [id number] 1 tablet BEDTIME 1 tablet BEDTIME (route: oral) Med Classific ation: Central Nervous System Agents pantoprazol e 40 mg tablet,baltazar yed release - 00:00: 00 06-27 23:59 :00 No [id number] 1 tablet DAILY 1 tablet DAILY (route: oral) Med Classific ation: Gastroint estinal Therapy Agents ropinirole 0.25 mg tablet 04-30 00:00: 00 06-27 23:59 :00 No [id number] 1-4 tablet DIRECTED 1-4 tablet DIRECTED (route: oral) Med Classific ation: Central Nervous System Agents Rytary 36.25 mg-145 mg capsule,ext ended release 04-30 00:00: 00 06-27 23:59 :00 No [id number] 2 capsule 4 TIMES DAILY 2 capsule 4 TIMES DAILY (route: oral) Med Classific ation: Central Nervous System Agents venlafaxine ER 225 mg tablet,exte nded release 24 hr - 00:00: 00 06-27 23:59 :00 No [id number] 1 tablet BEDTIME 1 tablet BEDTIME (route: oral) Med Classific ation: Central Nervous System Agents amantadine HCl 100 mg capsule 3-04 00:00: 00 Yes [id number] 1 capsule DAILY 1 capsule DAILY (route: oral) Med Classific ation: Central Nervous System Agents clonazepam 0.5 mg tablet 3-04 00:00: 00 Yes [id number] 1 tablet BEDTIME 1 tablet BEDTIME (route: oral) Med Classific ation: Central Nervous System Agents Eliquis 5 mg tablet 3-04 00:00: 00 Yes [id number] 1 tablet 2 TIMES DAILY 1 tablet 2 TIMES DAILY (route: oral) Med Classific ation: Hematolog ical Agents finasteride 5 mg tablet 06-29 00:00: 00 Yes [id number] 1 tablet DAILY 1 tablet DAILY (route: oral) Med Classific ation: Genitouri nary Therapy gabapentin 100 mg capsule 06-29 00:00: 00 Yes [id number] 1 capsule DAILY 1 capsule DAILY (route: oral) Med Classific ation: Central Nervous System Agents gabapentin 300 mg capsule 06-29 00:00: 00 Yes [id number] 1 capsule BEDTIME 1 capsule BEDTIME (route: oral) Med Classific ation: Central Nervous System Agents mirtazapine 45 mg tablet 06-29 00:00: 00 Yes [id number] 1 tablet DAILY 1 tablet DAILY (route: oral) Med Classific ation: Central Nervous System Agents pantoprazol e 40 mg tablet,baltazar yed release 06-29 00:00: 00 10-21 23:59 :00 No [id number] 1 tablet DAILY 1 tablet DAILY (route: oral) Med Classific ation: Gastroint estinal Therapy Agents ropinirole 0.25 mg tablet 06-29 00:00: 00 Yes [id number] 2 tablet DAILY 2 tablet DAILY (route: oral) Med Classific ation: Central Nervous System Agents Rytary 36.25 mg-145 mg capsule,ext ended release 06-29 00:00: 00 Yes [id number] 3 capsule 4 TIMES DAILY 3 capsule 4 TIMES DAILY (route: oral) Med Classific ation: Central Nervous System Agents venlafaxine ER 225 mg tablet,exte nded release 24 hr 06-29 00:00: 00 Yes [id number] 1 tablet DAILY 1 tablet DAILY (route: oral) Med Classific ation: Central Nervous System Agents albuterol sulfate HFA 90 mcg/actuati on aerosol inhaler 06-29 00:00: 00 Yes [id number] 2 puff EVERY 6 HOURS 2 puff EVERY 6 HOURS (route: inhalation ) Med Classific ation: Respirato ry Therapy Agents Breo Ellipta 100 mcg-25 mcg/dose powder for inhalation 3-04 00:00: 00 Yes [id number] 1 inhalat ion DAILY 1 inhalation DAILY (route: inhalation ) Med Classific ation: Respirato ry Therapy Agents pantoprazol e 40 mg tablet,baltazar yed release 3- 00:00: 00 10-21 23:59 :00 No [id number] 1 tablet 2 TIMES DAILY 1 tablet 2 TIMES DAILY (route: oral) Med Classific ation: Gastroint estinal Therapy Agents fluconazole 200 mg tablet - 00:00: 00 Yes [id number] 200 mg DAILY 200 mg DAILY (route: oral) Alternate Route: SUBLINGUA L. Med Classific ation: Anti-Infe ctive Agents Carafate 100 mg/mL oral suspension 10-26 00:00: 00 Yes [id number] 10 mL 4 TIMES DAILY 10 mL 4 TIMES DAILY (route: oral) Med Classific ation: Gastroint estinal Therapy Agents Voquezna 20 mg tablet 10-26 00:00: 00 12-03 00:58 :03.3 47 No [id number] 1 tablet 2 TIMES DAILY 1 tablet 2 TIMES DAILY (route: oral) Med Classific ation: Gastroint estinal Therapy Agents Voquezna 20 mg tablet 10-21 00:00: 00 Yes [id number] 1 tablet 2 TIMES DAILY 1 tablet [...] MAINTAIN SITUATIONAL AWARENESS AND WILL NOTIFY CLINICAL LINE ORDERING CLINICIAN AND PHYSICIAN/PROVIDER WITH ANY CHANGE IN CONDITION. [code = SKILLED NURSE TO PERFORM ENVIRONMENTAL SAFETY RISK ASSESSMENT AND FALL RISK ASSESSMENT AND PROVIDE INSTRUCTION TO IMPLEMENT ENVIRONMENTAL SAFETY AND FALL PREVENTION STRATEGIES THROUGHOUT THE CERTIFICATION PERIOD. SKILLED NURSE WILL MAINTAIN SITUATIONAL AWARENESS AND WILL NOTIFY CLINICAL LINE ORDERING CLINICIAN AND PHYSICIAN/PROVIDER WITH ANY CHANGE IN CONDITION.] [...] LASIX PATIENT LIVING SITUATION/CAREGIVER STATUS[facility] SUMMAR[facility] SKILLED NEED: [...] End Date/Time Encounter Type Admission Type Attending [facility] Care Department Encounter ID Discharge Date Discharge Status Discharge Condition Discharge Reason Percent Goals Met 2025-02-24 00:00:00 2025-04-24 00:00:00 Outpatient RECERTIFIC ATION DEMETRI SLAUGHTER [facility] [id number] 6.25
--- OUTSIDE RECORDS SUMMARY | 2025-04-23 19:00 | XMS_ITS | Clinical Summary ---
Author Organization Unknown Care Team Providers Care Irrigation System Installer Name Role Phone DARIAN DANGELO, ANYA Unavailable Unavaila aleisha CHRISTENSEN SALES ACCOUNT ASSOCIATE/SHINGLER, RENAN Unavailable Unava susie SLAUGHTER RN, DEMETRI Unavailable Unavailable Payers Payer Name Policy Type Policy Number Effective Date Expira tion Date MEDICARE - [facility] - PD [id number] Problems Condition Name Condition Details Condition Category [...] 01-11 00:00: 00 01-18 23:59 :00 No [id number] 1 tablet 2 TIMES DAILY 1 tablet 2 TIMES DAILY (route: oral) Med Classific ation: Anti-Infe ctive Agents lactulose 10 gram/15 mL oral solution 01-11 00:00: 00 04-01 23:59 :00 No [id number] 30 g DAILY 30 g DAILY (route: oral) Med Classific ation: Gastroint estinal Therapy Agents Rytary 36.25 mg-145 mg capsule,ext ended release 13 00:00: 00 04-01 23:59 :00 No [id number] 4 capsule 4 TIMES DAILY 4 capsule 4 TIMES DAILY (route: oral) Med Classific ation: Central Nervous System Agents Breo Ellipta 100 mcg-25 mcg/dose powder for inhalation - 00:00: 00 04-01 23:59 :00 No [id number] 1 inhalat ion ONCE DAILY 1 inhalation ONCE DAILY (route: inhalation ) Med Classific ation: Respirato ry Therapy Agents mirtazapine 45 mg tablet 12-12 00:00: 00 04-01 23:59 :00 No [id number] 1 tablet DAILY 1 tablet DAILY (route: oral) Med Classific ation: Central Nervous System Agents docusate sodium 100 mg capsule 16 00:00: 00 04-01 23:59 :00 No [id number] 1 capsule 2 TIMES DAILY 1 capsule 2 TIMES DAILY (route: oral) Med Classific ation: Gastroint estinal Therapy Agents Eliquis 5 mg tablet 10-26 00:00: 00 04-01 23:59 :00 No [id number] 1 tablet 2 TIMES DAILY 1 tablet 2 TIMES DAILY (route: oral) Med Classific ation: Hematolog ical Agents ferrous sulfate 325 mg (65 mg iron) tablet 10-26 00:00: 00 04-01 23:59 :00 No [id number] 1 tablet DAILY 1 tablet DAILY (route: oral) Med Classific ation: Electroly te Balance-N utritiona l Products finasteride 5 mg tablet 10-26 00:00: 00 04-01 23:59 :00 No [id number] 1 tablet DAILY 1 tablet DAILY (route: oral) Med Classific ation: Genitouri nary Therapy furosemide 40 mg tablet 10-26 00:00: 00 04-01 23:59 :00 No [id number] 1 tablet 2 TIMES DAILY 1 tablet 2 TIMES DAILY (route: oral) Med Classific ation: Cardiovas cular Therapy Agents magnesium 400 mg (as magnesium oxide) tablet 10-26 00:00: 00 04-01 23:59 :00 No [id number] 1 tablet DAILY 1 tablet DAILY (route: oral) Med Classific ation: Electroly te Balance-N utritiona l Products prednisolon e acetate 1 % eye drops,suspe nsion 10-26 00:00: 00 04-01 23:59 :00 No [id number] 1 drops 3 TIMES DAILY 1 drops 3 TIMES DAILY (route: ophthalmic (eye)) Med Classific ation: Ophthalmi c Agents ropinirole 0.25 mg tablet 09-28 00:00: 00 04-01 23:59 :00 No [id number] Per instruc tions DIRECTED Per instructio ns DIRECTED (route: oral) Med Classific ation: Central Nervous System Agents venlafaxine ER 225 mg tablet,exte nded release 24 hr 10-26 00:00: 00 04-01 23:59 :00 No [id number] 1 tablet DAILY 1 tablet DAILY (route: oral) Med Classific ation: Central Nervous System Agents Vitamin D3 125 mcg (5,000 unit) tablet 09-28 00:00: 00 04-01 23:59 :00 No [id number] 1 tablet DAILY 1 tablet DAILY (route: oral) Med Classific ation: Electroly te Balance-N utritiona l Products clonazepam 0.5 mg tablet 2023-04 0-11 00:00: 00 04-01 23:59 :00 No [id number] Per instruc tions BEDTIME Per instructio ns BEDTIME (route: oral) Med Classific ation: Central Nervous System Agents acetaminoph en 325 mg tablet 04-30 00:00: 00 06-27 23:59 :00 No [id number] 2 tablet EVERY 4 HOURS 2 tablet EVERY 4 HOURS (route: oral) Med Classific ation: Analgesic , Anti-infl ammatory or Antipyret ic albuterol sulfate HFA 90 mcg/actuati on aerosol inhaler 04-30 00:00: 00 06-27 23:59 :00 No [id number] 2 puff EVERY 6 HOURS 2 puff EVERY 6 HOURS (route: inhalation ) Med Classific ation: Respirato ry Therapy Agents amantadine HCl 100 mg tablet 04-30 00:00: 00 06-27 23:59 :00 No [id number] 1 tablet DAILY 1 tablet DAILY (route: oral) Med Classific ation: Central Nervous System Agents amoxicillin 500 mg capsule 04-30 00:00: 00 06-27 23:59 :00 No [id number] 4 capsule DIRECTED 4 capsule DIRECTED (route: oral) Med Classific ation: Anti-Infe ctive Agents Breo Ellipta 100 mcg-25 mcg/dose powder for inhalation 04-30 00:00: 00 06-27 23:59 :00 No [id number] 1 inhalat ion DAILY 1 inhalation DAILY (route: inhalation ) Med Classific ation: Respirato ry Therapy Agents clonazepam 0.5 mg tablet 04-30 00:00: 00 06-27 23:59 :00 No [id number] 1 tablet BEDTIME 1 tablet BEDTIME (route: oral) Med Classific ation: Central Nervous System Agents docusate sodium 100 mg capsule 04-30 00:00: 00 06-27 23:59 :00 No [id number] 1 capsule 2 TIMES DAILY 1 capsule 2 TIMES DAILY (route: oral) Med Classific ation: Gastroint estinal Therapy Agents Eliquis 5 mg tablet 04-30 00:00: 00 06-27 23:59 :00 No [id number] 1 tablet 2 TIMES DAILY 1 tablet 2 TIMES DAILY (route: oral) Med Classific ation: Hematolog ical Agents finasteride 5 mg tablet 04-30 00:00: 00 06-27 23:59 :00 No [id number] 1 tablet DAILY 1 tablet DAILY (route: oral) Med Classific ation: Genitouri nary Therapy gabapentin 100 mg capsule 04-30 00:00: 00 06-27 23:59 :00 No [id number] 1 capsule DAILY 1 capsule DAILY (route: oral) Med Classific ation: Central Nervous System Agents gabapentin 300 mg capsule - 00:00: 00 06-27 23:59 :00 No [id number] 1 capsule BEDTIME 1 capsule BEDTIME (route: oral) Med Classific ation: Central Nervous System Agents mirtazapine 45 mg tablet - 00:00: 00 06-27 23:59 :00 No [id number] 1 tablet BEDTIME 1 tablet BEDTIME (route: oral) Med Classific ation: Central Nervous System Agents pantoprazol e 40 mg tablet,baltazar yed release - 00:00: 00 06-27 23:59 :00 No [id number] 1 tablet DAILY 1 tablet DAILY (route: oral) Med Classific ation: Gastroint estinal Therapy Agents ropinirole 0.25 mg tablet 04-30 00:00: 00 06-27 23:59 :00 No [id number] 1-4 tablet DIRECTED 1-4 tablet DIRECTED (route: oral) Med Classific ation: Central Nervous System Agents Rytary 36.25 mg-145 mg capsule,ext ended release 04-30 00:00: 00 06-27 23:59 :00 No [id number] 2 capsule 4 TIMES DAILY 2 capsule 4 TIMES DAILY (route: oral) Med Classific ation: Central Nervous System Agents venlafaxine ER 225 mg tablet,exte nded release 24 hr - 00:00: 00 06-27 23:59 :00 No [id number] 1 tablet BEDTIME 1 tablet BEDTIME (route: oral) Med Classific ation: Central Nervous System Agents amantadine HCl 100 mg capsule 3-04 00:00: 00 Yes [id number] 1 capsule DAILY 1 capsule DAILY (route: oral) Med Classific ation: Central Nervous System Agents clonazepam 0.5 mg tablet 3-04 00:00: 00 Yes [id number] 1 tablet BEDTIME 1 tablet BEDTIME (route: oral) Med Classific ation: Central Nervous System Agents Eliquis 5 mg tablet 3-04 00:00: 00 Yes [id number] 1 tablet 2 TIMES DAILY 1 tablet 2 TIMES DAILY (route: oral) Med Classific ation: Hematolog ical Agents finasteride 5 mg tablet 06-29 00:00: 00 Yes [id number] 1 tablet DAILY 1 tablet DAILY (route: oral) Med Classific ation: Genitouri nary Therapy gabapentin 100 mg capsule 06-29 00:00: 00 Yes [id number] 1 capsule DAILY 1 capsule DAILY (route: oral) Med Classific ation: Central Nervous System Agents gabapentin 300 mg capsule 06-29 00:00: 00 Yes [id number] 1 capsule BEDTIME 1 capsule BEDTIME (route: oral) Med Classific ation: Central Nervous System Agents mirtazapine 45 mg tablet 06-29 00:00: 00 Yes [id number] 1 tablet DAILY 1 tablet DAILY (route: oral) Med Classific ation: Central Nervous System Agents pantoprazol e 40 mg tablet,baltazar yed release 06-29 00:00: 00 10-21 23:59 :00 No [id number] 1 tablet DAILY 1 tablet DAILY (route: oral) Med Classific ation: Gastroint estinal Therapy Agents ropinirole 0.25 mg tablet 06-29 00:00: 00 Yes [id number] 2 tablet DAILY 2 tablet DAILY (route: oral) Med Classific ation: Central Nervous System Agents Rytary 36.25 mg-145 mg capsule,ext ended release 06-29 00:00: 00 Yes [id number] 3 capsule 4 TIMES DAILY 3 capsule 4 TIMES DAILY (route: oral) Med Classific ation: Central Nervous System Agents venlafaxine ER 225 mg tablet,exte nded release 24 hr 06-29 00:00: 00 Yes [id number] 1 tablet DAILY 1 tablet DAILY (route: oral) Med Classific ation: Central Nervous System Agents albuterol sulfate HFA 90 mcg/actuati on aerosol inhaler 06-29 00:00: 00 Yes [id number] 2 puff EVERY 6 HOURS 2 puff EVERY 6 HOURS (route: inhalation ) Med Classific ation: Respirato ry Therapy Agents Breo Ellipta 100 mcg-25 mcg/dose powder for inhalation 3-04 00:00: 00 Yes [id number] 1 inhalat ion DAILY 1 inhalation DAILY (route: inhalation ) Med Classific ation: Respirato ry Therapy Agents pantoprazol e 40 mg tablet,baltazar yed release 3- 00:00: 00 10-21 23:59 :00 No [id number] 1 tablet 2 TIMES DAILY 1 tablet 2 TIMES DAILY (route: oral) Med Classific ation: Gastroint estinal Therapy Agents fluconazole 200 mg tablet - 00:00: 00 Yes [id number] 200 mg DAILY 200 mg DAILY (route: oral) Alternate Route: SUBLINGUA L. Med Classific ation: Anti-Infe ctive Agents Carafate 100 mg/mL oral suspension 10-26 00:00: 00 Yes [id number] 10 mL 4 TIMES DAILY 10 mL 4 TIMES DAILY (route: oral) Med Classific ation: Gastroint estinal Therapy Agents Voquezna 20 mg tablet 10-26 00:00: 00 12-03 00:58 :03.3 47 No [id number] 1 tablet 2 TIMES DAILY 1 tablet 2 TIMES DAILY (route: oral) Med Classific ation: Gastroint estinal Therapy Agents Voquezna 20 mg tablet 10-21 00:00: 00 Yes [id number] 1 tablet 2 TIMES DAILY 1 tablet [...] BLOCKAGE/LEAKAGE, HEAVY SEDIMENT. 1 - 3 PRN ASSISTED VISITS FOR CATHETER CHANGE(S) AND/OR TROUBLESHOOTING. [code = SKILLED NURSE TO INSTRUCT PATIENT/CAREGIVER AND PERFORM CARE AND MANAGEMENT OF INDWELLING URINARY CATHETER. [place] CATHETER INSERTION WITH 18 FR CATHETER WITH 10 ML BALLOON VIA STERILE TECHNIQUE, CHANGE Q 4 WEEKS AND PRN FOR LEAKING OR MALFUNCTIONING CATHETER. IRRIGATE URINARY CATHETER WITH 30-60CC NORMAL SALINE PRN BLOCKAGE/LEAKAGE, HEAVY SEDIMENT. 1 - 3 PRN ASSISTED VISITS FOR CATHETER CHANGE(S) AND/OR TROUBLESHOOTING.] Future [...] MAINTAIN SITUATIONAL AWARENESS AND WILL NOTIFY CLINICAL NURSE UNIT MANAGER AND PHYSICIAN/PROVIDER WITH ANY CHANGE IN CONDITION. [code = SKILLED NURSE TO PERFORM ENVIRONMENTAL SAFETY RISK ASSESSMENT AND FALL RISK ASSESSMENT AND PROVIDE INSTRUCTION TO IMPLEMENT ENVIRONMENTAL SAFETY AND FALL PREVENTION STRATEGIES THROUGHOUT THE CERTIFICATION PERIOD. SKILLED NURSE WILL MAINTAIN SITUATIONAL AWARENESS AND WILL NOTIFY CLINICAL NURSE UNIT MANAGER AND PHYSICIAN/PROVIDER WITH ANY CHANGE IN [...] LASIX PATIENT LIVING SITUATION/CAREGIVER STATUS: [facility] SUMMARIZE SKILLED NEED: DISEASE [...] CARE WILL BE ESTABLISHED THAT MEETS PATIENT'S ASSISTED NEEDS AND INCLUDES PATIENT GOAL FOR HOME [...] End Date/Time Encounter Type Admission Type Attending [facility] Care Department Encounter ID Discharge Date Discharge Status Discharge Condition Discharge Reason Percent Goals Met 2025-02-24 00:00:00 2025-04-24 00:00:00 Outpatient RECERTIFIC ATION DEMETRI SLAUGHTER [facility] [id number] 6.25
--- OUTSIDE RECORDS SUMMARY | 2025-04-23 19:00 | XMS_ITS | Clinical Summary ---
Author Organization Unknown Care Team Providers Care Glass Or Mirror Inspector Name Role Phone DARIAN DANGELO, ANYA Unavailable Unavaila aleisha CHRISTENSEN GERMINATION WORKER/NURSE STAFF INDUSTRIAL, RENAN Unavailable Unava susie SLAUGHTER RN, DEMETRI Unavailable Unavailable Payers Payer Name Policy Type Policy Number Effective Date Expira tion Date MEDICARE - [facility] - PD [id number] Problems Condition Name Condition Details Condition Category [...] 01-11 00:00: 00 01-18 23:59 :00 No [id number] 1 tablet 2 TIMES DAILY 1 tablet 2 TIMES DAILY (route: oral) Med Classific ation: Anti-Infe ctive Agents lactulose 10 gram/15 mL oral solution 01-11 00:00: 00 04-01 23:59 :00 No [id number] 30 g DAILY 30 g DAILY (route: oral) Med Classific ation: Gastroint estinal Therapy Agents Rytary 36.25 mg-145 mg capsule,ext ended release 13 00:00: 00 04-01 23:59 :00 No [id number] 4 capsule 4 TIMES DAILY 4 capsule 4 TIMES DAILY (route: oral) Med Classific ation: Central Nervous System Agents Breo Ellipta 100 mcg-25 mcg/dose powder for inhalation - 00:00: 00 04-01 23:59 :00 No [id number] 1 inhalat ion ONCE DAILY 1 inhalation ONCE DAILY (route: inhalation ) Med Classific ation: Respirato ry Therapy Agents mirtazapine 45 mg tablet 12-12 00:00: 00 04-01 23:59 :00 No [id number] 1 tablet DAILY 1 tablet DAILY (route: oral) Med Classific ation: Central Nervous System Agents docusate sodium 100 mg capsule 16 00:00: 00 04-01 23:59 :00 No [id number] 1 capsule 2 TIMES DAILY 1 capsule 2 TIMES DAILY (route: oral) Med Classific ation: Gastroint estinal Therapy Agents Eliquis 5 mg tablet 10-26 00:00: 00 04-01 23:59 :00 No [id number] 1 tablet 2 TIMES DAILY 1 tablet 2 TIMES DAILY (route: oral) Med Classific ation: Hematolog ical Agents ferrous sulfate 325 mg (65 mg iron) tablet 10-26 00:00: 00 04-01 23:59 :00 No [id number] 1 tablet DAILY 1 tablet DAILY (route: oral) Med Classific ation: Electroly te Balance-N utritiona l Products finasteride 5 mg tablet 10-26 00:00: 00 04-01 23:59 :00 No [id number] 1 tablet DAILY 1 tablet DAILY (route: oral) Med Classific ation: Genitouri nary Therapy furosemide 40 mg tablet 10-26 00:00: 00 04-01 23:59 :00 No [id number] 1 tablet 2 TIMES DAILY 1 tablet 2 TIMES DAILY (route: oral) Med Classific ation: Cardiovas cular Therapy Agents magnesium 400 mg (as magnesium oxide) tablet 10-26 00:00: 00 04-01 23:59 :00 No [id number] 1 tablet DAILY 1 tablet DAILY (route: oral) Med Classific ation: Electroly te Balance-N utritiona l Products prednisolon e acetate 1 % eye drops,suspe nsion 10-26 00:00: 00 04-01 23:59 :00 No [id number] 1 drops 3 TIMES DAILY 1 drops 3 TIMES DAILY (route: ophthalmic (eye)) Med Classific ation: Ophthalmi c Agents ropinirole 0.25 mg tablet 09-28 00:00: 00 04-01 23:59 :00 No [id number] Per instruc tions DIRECTED Per instructio ns DIRECTED (route: oral) Med Classific ation: Central Nervous System Agents venlafaxine ER 225 mg tablet,exte nded release 24 hr 10-26 00:00: 00 04-01 23:59 :00 No [id number] 1 tablet DAILY 1 tablet DAILY (route: oral) Med Classific ation: Central Nervous System Agents Vitamin D3 125 mcg (5,000 unit) tablet 09-28 00:00: 00 04-01 23:59 :00 No [id number] 1 tablet DAILY 1 tablet DAILY (route: oral) Med Classific ation: Electroly te Balance-N utritiona l Products clonazepam 0.5 mg tablet 2023-04 0-11 00:00: 00 04-01 23:59 :00 No [id number] Per instruc tions BEDTIME Per instructio ns BEDTIME (route: oral) Med Classific ation: Central Nervous System Agents acetaminoph en 325 mg tablet 04-30 00:00: 00 06-27 23:59 :00 No [id number] 2 tablet EVERY 4 HOURS 2 tablet EVERY 4 HOURS (route: oral) Med Classific ation: Analgesic , Anti-infl ammatory or Antipyret ic albuterol sulfate HFA 90 mcg/actuati on aerosol inhaler 04-30 00:00: 00 06-27 23:59 :00 No [id number] 2 puff EVERY 6 HOURS 2 puff EVERY 6 HOURS (route: inhalation ) Med Classific ation: Respirato ry Therapy Agents amantadine HCl 100 mg tablet 04-30 00:00: 00 06-27 23:59 :00 No [id number] 1 tablet DAILY 1 tablet DAILY (route: oral) Med Classific ation: Central Nervous System Agents amoxicillin 500 mg capsule 04-30 00:00: 00 06-27 23:59 :00 No [id number] 4 capsule DIRECTED 4 capsule DIRECTED (route: oral) Med Classific ation: Anti-Infe ctive Agents Breo Ellipta 100 mcg-25 mcg/dose powder for inhalation 04-30 00:00: 00 06-27 23:59 :00 No [id number] 1 inhalat ion DAILY 1 inhalation DAILY (route: inhalation ) Med Classific ation: Respirato ry Therapy Agents clonazepam 0.5 mg tablet 04-30 00:00: 00 06-27 23:59 :00 No [id number] 1 tablet BEDTIME 1 tablet BEDTIME (route: oral) Med Classific ation: Central Nervous System Agents docusate sodium 100 mg capsule 04-30 00:00: 00 06-27 23:59 :00 No [id number] 1 capsule 2 TIMES DAILY 1 capsule 2 TIMES DAILY (route: oral) Med Classific ation: Gastroint estinal Therapy Agents Eliquis 5 mg tablet 04-30 00:00: 00 06-27 23:59 :00 No [id number] 1 tablet 2 TIMES DAILY 1 tablet 2 TIMES DAILY (route: oral) Med Classific ation: Hematolog ical Agents finasteride 5 mg tablet 04-30 00:00: 00 06-27 23:59 :00 No [id number] 1 tablet DAILY 1 tablet DAILY (route: oral) Med Classific ation: Genitouri nary Therapy gabapentin 100 mg capsule 04-30 00:00: 00 06-27 23:59 :00 No [id number] 1 capsule DAILY 1 capsule DAILY (route: oral) Med Classific ation: Central Nervous System Agents gabapentin 300 mg capsule - 00:00: 00 06-27 23:59 :00 No [id number] 1 capsule BEDTIME 1 capsule BEDTIME (route: oral) Med Classific ation: Central Nervous System Agents mirtazapine 45 mg tablet - 00:00: 00 06-27 23:59 :00 No [id number] 1 tablet BEDTIME 1 tablet BEDTIME (route: oral) Med Classific ation: Central Nervous System Agents pantoprazol e 40 mg tablet,baltazar yed release - 00:00: 00 06-27 23:59 :00 No [id number] 1 tablet DAILY 1 tablet DAILY (route: oral) Med Classific ation: Gastroint estinal Therapy Agents ropinirole 0.25 mg tablet 04-30 00:00: 00 06-27 23:59 :00 No [id number] 1-4 tablet DIRECTED 1-4 tablet DIRECTED (route: oral) Med Classific ation: Central Nervous System Agents Rytary 36.25 mg-145 mg capsule,ext ended release 04-30 00:00: 00 06-27 23:59 :00 No [id number] 2 capsule 4 TIMES DAILY 2 capsule 4 TIMES DAILY (route: oral) Med Classific ation: Central Nervous System Agents venlafaxine ER 225 mg tablet,exte nded release 24 hr - 00:00: 00 06-27 23:59 :00 No [id number] 1 tablet BEDTIME 1 tablet BEDTIME (route: oral) Med Classific ation: Central Nervous System Agents amantadine HCl 100 mg capsule 3-04 00:00: 00 Yes [id number] 1 capsule DAILY 1 capsule DAILY (route: oral) Med Classific ation: Central Nervous System Agents clonazepam 0.5 mg tablet 3-04 00:00: 00 Yes [id number] 1 tablet BEDTIME 1 tablet BEDTIME (route: oral) Med Classific ation: Central Nervous System Agents Eliquis 5 mg tablet 3-04 00:00: 00 Yes [id number] 1 tablet 2 TIMES DAILY 1 tablet 2 TIMES DAILY (route: oral) Med Classific ation: Hematolog ical Agents finasteride 5 mg tablet 06-29 00:00: 00 Yes [id number] 1 tablet DAILY 1 tablet DAILY (route: oral) Med Classific ation: Genitouri nary Therapy gabapentin 100 mg capsule 06-29 00:00: 00 Yes [id number] 1 capsule DAILY 1 capsule DAILY (route: oral) Med Classific ation: Central Nervous System Agents gabapentin 300 mg capsule 06-29 00:00: 00 Yes [id number] 1 capsule BEDTIME 1 capsule BEDTIME (route: oral) Med Classific ation: Central Nervous System Agents mirtazapine 45 mg tablet 06-29 00:00: 00 Yes [id number] 1 tablet DAILY 1 tablet DAILY (route: oral) Med Classific ation: Central Nervous System Agents pantoprazol e 40 mg tablet,baltazar yed release 06-29 00:00: 00 10-21 23:59 :00 No [id number] 1 tablet DAILY 1 tablet DAILY (route: oral) Med Classific ation: Gastroint estinal Therapy Agents ropinirole 0.25 mg tablet 06-29 00:00: 00 Yes [id number] 2 tablet DAILY 2 tablet DAILY (route: oral) Med Classific ation: Central Nervous System Agents Rytary 36.25 mg-145 mg capsule,ext ended release 06-29 00:00: 00 Yes [id number] 3 capsule 4 TIMES DAILY 3 capsule 4 TIMES DAILY (route: oral) Med Classific ation: Central Nervous System Agents venlafaxine ER 225 mg tablet,exte nded release 24 hr 06-29 00:00: 00 Yes [id number] 1 tablet DAILY 1 tablet DAILY (route: oral) Med Classific ation: Central Nervous System Agents albuterol sulfate HFA 90 mcg/actuati on aerosol inhaler 06-29 00:00: 00 Yes [id number] 2 puff EVERY 6 HOURS 2 puff EVERY 6 HOURS (route: inhalation ) Med Classific ation: Respirato ry Therapy Agents Breo Ellipta 100 mcg-25 mcg/dose powder for inhalation 3-04 00:00: 00 Yes [id number] 1 inhalat ion DAILY 1 inhalation DAILY (route: inhalation ) Med Classific ation: Respirato ry Therapy Agents pantoprazol e 40 mg tablet,baltazar yed release 3- 00:00: 00 10-21 23:59 :00 No [id number] 1 tablet 2 TIMES DAILY 1 tablet 2 TIMES DAILY (route: oral) Med Classific ation: Gastroint estinal Therapy Agents fluconazole 200 mg tablet - 00:00: 00 Yes [id number] 200 mg DAILY 200 mg DAILY (route: oral) Alternate Route: SUBLINGUA L. Med Classific ation: Anti-Infe ctive Agents Carafate 100 mg/mL oral suspension 10-26 00:00: 00 Yes [id number] 10 mL 4 TIMES DAILY 10 mL 4 TIMES DAILY (route: oral) Med Classific ation: Gastroint estinal Therapy Agents Voquezna 20 mg tablet 10-26 00:00: 00 12-03 00:58 :03.3 47 No [id number] 1 tablet 2 TIMES DAILY 1 tablet 2 TIMES DAILY (route: oral) Med Classific ation: Gastroint estinal Therapy Agents Voquezna 20 mg tablet 10-21 00:00: 00 Yes [id number] 1 tablet 2 TIMES DAILY 1 tablet [...] BLOCKAGE/LEAKAGE, HEAVY SEDIMENT. 1 - 3 PRN NURSING HOME VISITS FOR CATHETER CHANGE(S) AND/OR TROUBLESHOOTING. [code = SKILLED NURSE TO INSTRUCT PATIENT/CAREGIVER AND PERFORM CARE AND MANAGEMENT OF INDWELLING URINARY CATHETER. [place] CATHETER INSERTION WITH 18 FR CATHETER WITH 10 ML BALLOON VIA STERILE TECHNIQUE, CHANGE Q 4 WEEKS AND PRN FOR LEAKING OR MALFUNCTIONING CATHETER. IRRIGATE URINARY CATHETER WITH 30-60CC NORMAL SALINE PRN BLOCKAGE/LEAKAGE, HEAVY SEDIMENT. 1 - 3 PRN NURSING HOME VISITS FOR CATHETER CHANGE(S) AND/OR TROUBLESHOOTING.] Future [...] MAINTAIN SITUATIONAL AWARENESS AND WILL NOTIFY CLINICAL DESIGN INSERTER AND PHYSICIAN/PROVIDER WITH ANY CHANGE IN CONDITION. [code = SKILLED NURSE TO PERFORM ENVIRONMENTAL SAFETY RISK ASSESSMENT AND FALL RISK ASSESSMENT AND PROVIDE INSTRUCTION TO IMPLEMENT ENVIRONMENTAL SAFETY AND FALL PREVENTION STRATEGIES THROUGHOUT THE CERTIFICATION PERIOD. SKILLED NURSE WILL MAINTAIN SITUATIONAL AWARENESS AND WILL NOTIFY CLINICAL DESIGN INSERTER AND PHYSICIAN/PROVIDER WITH ANY CHANGE IN CONDITION.] [...] LASIX PATIENT LIVING SITUATION/CAREGIVER STATUS: [facility] SUMMAR[facility] SKILLED NEED: DISEASE MANAGEMENT [...] CARE WILL BE ESTABLISHED THAT MEETS PATIENT'S NURSING HOME NEEDS AND INCLUDES PATIENT GOAL FOR HOME [...] End Date/Time Encounter Type Admission Type Attending [facility] Care Department Encounter ID Discharge Date Discharge Status Discharge Condition Discharge Reason Percent Goals Met 2025-02-24 00:00:00 2025-04-24 00:00:00 Outpatient RECERTIFIC ATION DEMETRI SLAUGHTER [facility] [id number] 6.25
--- OUTSIDE RECORDS SUMMARY | 2025-04-23 19:00 | XMS_ITS | Clinical Summary ---
Author Organization Unknown Care Team Providers Care Variety Performer Name Role Phone DARIAN DANGELO, ANYA Unavailable Unavaila aleisha CHRISTENSEN LABEL PRESS OPERATOR/FLOOR MOLDER, RENAN Unavailable Unava susie SLAUGHTER RN, DEMETRI Unavailable Unavailable Payers Payer Name Policy Type Policy Number Effective Date Expira tion Date MEDICARE - [facility] - PD [id number] Problems Condition Name Condition Details Condition Category [...] OF URINARY DEVICE Active 04-28 00:00: 00 USP (CURRENT) USE OF ANTICOAGULAN TS Active 04-28 [...] 01-11 00:00: 00 01-18 23:59 :00 No [id number] 1 tablet 2 TIMES DAILY 1 tablet 2 TIMES DAILY (route: oral) Med Classific ation: Anti-Infe ctive Agents lactulose 10 gram/15 mL oral solution 01-11 00:00: 00 04-01 23:59 :00 No [id number] 30 g DAILY 30 g DAILY (route: oral) Med Classific ation: Gastroint estinal Therapy Agents Rytary 36.25 mg-145 mg capsule,ext ended release 13 00:00: 00 04-01 23:59 :00 No [id number] 4 capsule 4 TIMES DAILY 4 capsule 4 TIMES DAILY (route: oral) Med Classific ation: Central Nervous System Agents Breo Ellipta 100 mcg-25 mcg/dose powder for inhalation - 00:00: 00 04-01 23:59 :00 No [id number] 1 inhalat ion ONCE DAILY 1 inhalation ONCE DAILY (route: inhalation ) Med Classific ation: Respirato ry Therapy Agents mirtazapine 45 mg tablet 12-12 00:00: 00 04-01 23:59 :00 No [id number] 1 tablet DAILY 1 tablet DAILY (route: oral) Med Classific ation: Central Nervous System Agents docusate sodium 100 mg capsule 16 00:00: 00 04-01 23:59 :00 No [id number] 1 capsule 2 TIMES DAILY 1 capsule 2 TIMES DAILY (route: oral) Med Classific ation: Gastroint estinal Therapy Agents Eliquis 5 mg tablet 10-26 00:00: 00 04-01 23:59 :00 No [id number] 1 tablet 2 TIMES DAILY 1 tablet 2 TIMES DAILY (route: oral) Med Classific ation: Hematolog ical Agents ferrous sulfate 325 mg (65 mg iron) tablet 10-26 00:00: 00 04-01 23:59 :00 No [id number] 1 tablet DAILY 1 tablet DAILY (route: oral) Med Classific ation: Electroly te Balance-N utritiona l Products finasteride 5 mg tablet 10-26 00:00: 00 04-01 23:59 :00 No [id number] 1 tablet DAILY 1 tablet DAILY (route: oral) Med Classific ation: Genitouri nary Therapy furosemide 40 mg tablet 10-26 00:00: 00 04-01 23:59 :00 No [id number] 1 tablet 2 TIMES DAILY 1 tablet 2 TIMES DAILY (route: oral) Med Classific ation: Cardiovas cular Therapy Agents magnesium 400 mg (as magnesium oxide) tablet 10-26 00:00: 00 04-01 23:59 :00 No [id number] 1 tablet DAILY 1 tablet DAILY (route: oral) Med Classific ation: Electroly te Balance-N utritiona l Products prednisolon e acetate 1 % eye drops,suspe nsion 10-26 00:00: 00 04-01 23:59 :00 No [id number] 1 drops 3 TIMES DAILY 1 drops 3 TIMES DAILY (route: ophthalmic (eye)) Med Classific ation: Ophthalmi c Agents ropinirole 0.25 mg tablet 09-28 00:00: 00 04-01 23:59 :00 No [id number] Per instruc tions DIRECTED Per instructio ns DIRECTED (route: oral) Med Classific ation: Central Nervous System Agents venlafaxine ER 225 mg tablet,exte nded release 24 hr 10-26 00:00: 00 04-01 23:59 :00 No [id number] 1 tablet DAILY 1 tablet DAILY (route: oral) Med Classific ation: Central Nervous System Agents Vitamin D3 125 mcg (5,000 unit) tablet 09-28 00:00: 00 04-01 23:59 :00 No [id number] 1 tablet DAILY 1 tablet DAILY (route: oral) Med Classific ation: Electroly te Balance-N utritiona l Products clonazepam 0.5 mg tablet 2023-04 0-11 00:00: 00 04-01 23:59 :00 No [id number] Per instruc tions BEDTIME Per instructio ns BEDTIME (route: oral) Med Classific ation: Central Nervous System Agents acetaminoph en 325 mg tablet 04-30 00:00: 00 06-27 23:59 :00 No [id number] 2 tablet EVERY 4 HOURS 2 tablet EVERY 4 HOURS (route: oral) Med Classific ation: Analgesic , Anti-infl ammatory or Antipyret ic albuterol sulfate HFA 90 mcg/actuati on aerosol inhaler 04-30 00:00: 00 06-27 23:59 :00 No [id number] 2 puff EVERY 6 HOURS 2 puff EVERY 6 HOURS (route: inhalation ) Med Classific ation: Respirato ry Therapy Agents amantadine HCl 100 mg tablet 04-30 00:00: 00 06-27 23:59 :00 No [id number] 1 tablet DAILY 1 tablet DAILY (route: oral) Med Classific ation: Central Nervous System Agents amoxicillin 500 mg capsule 04-30 00:00: 00 06-27 23:59 :00 No [id number] 4 capsule DIRECTED 4 capsule DIRECTED (route: oral) Med Classific ation: Anti-Infe ctive Agents Breo Ellipta 100 mcg-25 mcg/dose powder for inhalation 04-30 00:00: 00 06-27 23:59 :00 No [id number] 1 inhalat ion DAILY 1 inhalation DAILY (route: inhalation ) Med Classific ation: Respirato ry Therapy Agents clonazepam 0.5 mg tablet 04-30 00:00: 00 06-27 23:59 :00 No [id number] 1 tablet BEDTIME 1 tablet BEDTIME (route: oral) Med Classific ation: Central Nervous System Agents docusate sodium 100 mg capsule 04-30 00:00: 00 06-27 23:59 :00 No [id number] 1 capsule 2 TIMES DAILY 1 capsule 2 TIMES DAILY (route: oral) Med Classific ation: Gastroint estinal Therapy Agents Eliquis 5 mg tablet 04-30 00:00: 00 06-27 23:59 :00 No [id number] 1 tablet 2 TIMES DAILY 1 tablet 2 TIMES DAILY (route: oral) Med Classific ation: Hematolog ical Agents finasteride 5 mg tablet 04-30 00:00: 00 06-27 23:59 :00 No [id number] 1 tablet DAILY 1 tablet DAILY (route: oral) Med Classific ation: Genitouri nary Therapy gabapentin 100 mg capsule 04-30 00:00: 00 06-27 23:59 :00 No [id number] 1 capsule DAILY 1 capsule DAILY (route: oral) Med Classific ation: Central Nervous System Agents gabapentin 300 mg capsule - 00:00: 00 06-27 23:59 :00 No [id number] 1 capsule BEDTIME 1 capsule BEDTIME (route: oral) Med Classific ation: Central Nervous System Agents mirtazapine 45 mg tablet - 00:00: 00 06-27 23:59 :00 No [id number] 1 tablet BEDTIME 1 tablet BEDTIME (route: oral) Med Classific ation: Central Nervous System Agents pantoprazol e 40 mg tablet,baltazar yed release - 00:00: 00 06-27 23:59 :00 No [id number] 1 tablet DAILY 1 tablet DAILY (route: oral) Med Classific ation: Gastroint estinal Therapy Agents ropinirole 0.25 mg tablet 04-30 00:00: 00 06-27 23:59 :00 No [id number] 1-4 tablet DIRECTED 1-4 tablet DIRECTED (route: oral) Med Classific ation: Central Nervous System Agents Rytary 36.25 mg-145 mg capsule,ext ended release 04-30 00:00: 00 06-27 23:59 :00 No [id number] 2 capsule 4 TIMES DAILY 2 capsule 4 TIMES DAILY (route: oral) Med Classific ation: Central Nervous System Agents venlafaxine ER 225 mg tablet,exte nded release 24 hr - 00:00: 00 06-27 23:59 :00 No [id number] 1 tablet BEDTIME 1 tablet BEDTIME (route: oral) Med Classific ation: Central Nervous System Agents amantadine HCl 100 mg capsule 3-04 00:00: 00 Yes [id number] 1 capsule DAILY 1 capsule DAILY (route: oral) Med Classific ation: Central Nervous System Agents clonazepam 0.5 mg tablet 3-04 00:00: 00 Yes [id number] 1 tablet BEDTIME 1 tablet BEDTIME (route: oral) Med Classific ation: Central Nervous System Agents Eliquis 5 mg tablet 3-04 00:00: 00 Yes [id number] 1 tablet 2 TIMES DAILY 1 tablet 2 TIMES DAILY (route: oral) Med Classific ation: Hematolog ical Agents finasteride 5 mg tablet 06-29 00:00: 00 Yes [id number] 1 tablet DAILY 1 tablet DAILY (route: oral) Med Classific ation: Genitouri nary Therapy gabapentin 100 mg capsule 06-29 00:00: 00 Yes [id number] 1 capsule DAILY 1 capsule DAILY (route: oral) Med Classific ation: Central Nervous System Agents gabapentin 300 mg capsule 06-29 00:00: 00 Yes [id number] 1 capsule BEDTIME 1 capsule BEDTIME (route: oral) Med Classific ation: Central Nervous System Agents mirtazapine 45 mg tablet 06-29 00:00: 00 Yes [id number] 1 tablet DAILY 1 tablet DAILY (route: oral) Med Classific ation: Central Nervous System Agents pantoprazol e 40 mg tablet,baltazar yed release 06-29 00:00: 00 10-21 23:59 :00 No [id number] 1 tablet DAILY 1 tablet DAILY (route: oral) Med Classific ation: Gastroint estinal Therapy Agents ropinirole 0.25 mg tablet 06-29 00:00: 00 Yes [id number] 2 tablet DAILY 2 tablet DAILY (route: oral) Med Classific ation: Central Nervous System Agents Rytary 36.25 mg-145 mg capsule,ext ended release 06-29 00:00: 00 Yes [id number] 3 capsule 4 TIMES DAILY 3 capsule 4 TIMES DAILY (route: oral) Med Classific ation: Central Nervous System Agents venlafaxine ER 225 mg tablet,exte nded release 24 hr 06-29 00:00: 00 Yes [id number] 1 tablet DAILY 1 tablet DAILY (route: oral) Med Classific ation: Central Nervous System Agents albuterol sulfate HFA 90 mcg/actuati on aerosol inhaler 06-29 00:00: 00 Yes [id number] 2 puff EVERY 6 HOURS 2 puff EVERY 6 HOURS (route: inhalation ) Med Classific ation: Respirato ry Therapy Agents Breo Ellipta 100 mcg-25 mcg/dose powder for inhalation 3-04 00:00: 00 Yes [id number] 1 inhalat ion DAILY 1 inhalation DAILY (route: inhalation ) Med Classific ation: Respirato ry Therapy Agents pantoprazol e 40 mg tablet,baltazar yed release 3- 00:00: 00 10-21 23:59 :00 No [id number] 1 tablet 2 TIMES DAILY 1 tablet 2 TIMES DAILY (route: oral) Med Classific ation: Gastroint estinal Therapy Agents fluconazole 200 mg tablet - 00:00: 00 Yes [id number] 200 mg DAILY 200 mg DAILY (route: oral) Alternate Route: SUBLINGUA L. Med Classific ation: Anti-Infe ctive Agents Carafate 100 mg/mL oral suspension 10-26 00:00: 00 Yes [id number] 10 mL 4 TIMES DAILY 10 mL 4 TIMES DAILY (route: oral) Med Classific ation: Gastroint estinal Therapy Agents Voquezna 20 mg tablet 10-26 00:00: 00 12-03 00:58 :03.3 47 No [id number] 1 tablet 2 TIMES DAILY 1 tablet 2 TIMES DAILY (route: oral) Med Classific ation: Gastroint estinal Therapy Agents Voquezna 20 mg tablet 10-21 00:00: 00 Yes [id number] 1 tablet 2 TIMES DAILY 1 tablet [...] BLOCKAGE/LEAKAGE, HEAVY SEDIMENT. 1 - 3 PRN DETENTION VISITS FOR CATHETER CHANGE(S) AND/OR TROUBLESHOOTING. [code = SKILLED NURSE TO INSTRUCT PATIENT/CAREGIVER AND PERFORM CARE AND MANAGEMENT OF INDWELLING URINARY CATHETER. [place] CATHETER INSERTION WITH 18 FR CATHETER WITH 10 ML BALLOON VIA STERILE TECHNIQUE, CHANGE Q 4 WEEKS AND PRN FOR LEAKING OR MALFUNCTIONING CATHETER. IRRIGATE URINARY CATHETER WITH 30-60CC NORMAL SALINE PRN BLOCKAGE/LEAKAGE, HEAVY SEDIMENT. 1 - 3 PRN DETENTION VISITS FOR CATHETER CHANGE(S) AND/OR TROUBLESHOOTING.] Future [...] MAINTAIN SITUATIONAL AWARENESS AND WILL NOTIFY CLINICAL OPTION TRADER AND PHYSICIAN/PROVIDER WITH ANY CHANGE IN CONDITION. [code = SKILLED NURSE TO PERFORM ENVIRONMENTAL SAFETY RISK ASSESSMENT AND FALL RISK ASSESSMENT AND PROVIDE INSTRUCTION TO IMPLEMENT ENVIRONMENTAL SAFETY AND FALL PREVENTION STRATEGIES THROUGHOUT THE CERTIFICATION PERIOD. SKILLED NURSE WILL MAINTAIN SITUATIONAL AWARENESS AND WILL NOTIFY CLINICAL OPTION TRADER AND PHYSICIAN/PROVIDER WITH ANY CHANGE IN CONDITION.] [...] [facility] PATIENT LIVING SITUATION/CAREGIVER STATUS: [facility] SUM[facility] SKILLED NEED: [...] CARE WILL BE ESTABLISHED THAT MEETS PATIENT'S DETENTION NEEDS AND INCLUDES PATIENT GOAL FOR HOME [...] End Date/Time Encounter Type Admission Type Attending [facility] Care Department Encounter ID Discharge Date Discharge Status Discharge Condition Discharge Reason Percent Goals Met 2025-02-24 00:00:00 2025-04-24 00:00:00 Outpatient RECERTIFIC ATION DEMETRI SLAUGHTER [facility] [id number] 6.25
--- OUTSIDE RECORDS SUMMARY | 2025-04-23 19:00 | XMS_ITS | Clinical Summary ---
Author Organization Unknown Care Team Providers Care Documentation Spec Name Role Phone DARIAN DANGELO, ANYA Unavailable Unavaila aleisha CHRISTENSEN JET MECHANIC/LAST PATTERN GRADER, RENAN Unavailable Unava susie SLAUGHTER RN, DEMETRI Unavailable Unavailable Payers Payer Name Policy Type Policy Number Effective Date Expira tion Date MEDICARE - [facility] - PD [id number] Problems Condition Name Condition Details Condition Category [...] OF URINARY DEVICE Active 04-28 00:00: 00 [facility] (CURRENT) USE OF ANTICOAGULAN TS Active 04-28 [...] 01-11 00:00: 00 01-18 23:59 :00 No [id number] 1 tablet 2 TIMES DAILY 1 tablet 2 TIMES DAILY (route: oral) Med Classific ation: Anti-Infe ctive Agents lactulose 10 gram/15 mL oral solution 01-11 00:00: 00 04-01 23:59 :00 No [id number] 30 g DAILY 30 g DAILY (route: oral) Med Classific ation: Gastroint estinal Therapy Agents Rytary 36.25 mg-145 mg capsule,ext ended release 13 00:00: 00 04-01 23:59 :00 No [id number] 4 capsule 4 TIMES DAILY 4 capsule 4 TIMES DAILY (route: oral) Med Classific ation: Central Nervous System Agents Breo Ellipta 100 mcg-25 mcg/dose powder for inhalation - 00:00: 00 04-01 23:59 :00 No [id number] 1 inhalat ion ONCE DAILY 1 inhalation ONCE DAILY (route: inhalation ) Med Classific ation: Respirato ry Therapy Agents mirtazapine 45 mg tablet 12-12 00:00: 00 04-01 23:59 :00 No [id number] 1 tablet DAILY 1 tablet DAILY (route: oral) Med Classific ation: Central Nervous System Agents docusate sodium 100 mg capsule 16 00:00: 00 04-01 23:59 :00 No [id number] 1 capsule 2 TIMES DAILY 1 capsule 2 TIMES DAILY (route: oral) Med Classific ation: Gastroint estinal Therapy Agents Eliquis 5 mg tablet 10-26 00:00: 00 04-01 23:59 :00 No [id number] 1 tablet 2 TIMES DAILY 1 tablet 2 TIMES DAILY (route: oral) Med Classific ation: Hematolog ical Agents ferrous sulfate 325 mg (65 mg iron) tablet 10-26 00:00: 00 04-01 23:59 :00 No [id number] 1 tablet DAILY 1 tablet DAILY (route: oral) Med Classific ation: Electroly te Balance-N utritiona l Products finasteride 5 mg tablet 10-26 00:00: 00 04-01 23:59 :00 No [id number] 1 tablet DAILY 1 tablet DAILY (route: oral) Med Classific ation: Genitouri nary Therapy furosemide 40 mg tablet 10-26 00:00: 00 04-01 23:59 :00 No [id number] 1 tablet 2 TIMES DAILY 1 tablet 2 TIMES DAILY (route: oral) Med Classific ation: Cardiovas cular Therapy Agents magnesium 400 mg (as magnesium oxide) tablet 10-26 00:00: 00 04-01 23:59 :00 No [id number] 1 tablet DAILY 1 tablet DAILY (route: oral) Med Classific ation: Electroly te Balance-N utritiona l Products prednisolon e acetate 1 % eye drops,suspe nsion 10-26 00:00: 00 04-01 23:59 :00 No [id number] 1 drops 3 TIMES DAILY 1 drops 3 TIMES DAILY (route: ophthalmic (eye)) Med Classific ation: Ophthalmi c Agents ropinirole 0.25 mg tablet 09-28 00:00: 00 04-01 23:59 :00 No [id number] Per instruc tions DIRECTED Per instructio ns DIRECTED (route: oral) Med Classific ation: Central Nervous System Agents venlafaxine ER 225 mg tablet,exte nded release 24 hr 10-26 00:00: 00 04-01 23:59 :00 No [id number] 1 tablet DAILY 1 tablet DAILY (route: oral) Med Classific ation: Central Nervous System Agents Vitamin D3 125 mcg (5,000 unit) tablet 09-28 00:00: 00 04-01 23:59 :00 No [id number] 1 tablet DAILY 1 tablet DAILY (route: oral) Med Classific ation: Electroly te Balance-N utritiona l Products clonazepam 0.5 mg tablet 2023-04 0-11 00:00: 00 04-01 23:59 :00 No [id number] Per instruc tions BEDTIME Per instructio ns BEDTIME (route: oral) Med Classific ation: Central Nervous System Agents acetaminoph en 325 mg tablet 04-30 00:00: 00 06-27 23:59 :00 No [id number] 2 tablet EVERY 4 HOURS 2 tablet EVERY 4 HOURS (route: oral) Med Classific ation: Analgesic , Anti-infl ammatory or Antipyret ic albuterol sulfate HFA 90 mcg/actuati on aerosol inhaler 04-30 00:00: 00 06-27 23:59 :00 No [id number] 2 puff EVERY 6 HOURS 2 puff EVERY 6 HOURS (route: inhalation ) Med Classific ation: Respirato ry Therapy Agents amantadine HCl 100 mg tablet 04-30 00:00: 00 06-27 23:59 :00 No [id number] 1 tablet DAILY 1 tablet DAILY (route: oral) Med Classific ation: Central Nervous System Agents amoxicillin 500 mg capsule 04-30 00:00: 00 06-27 23:59 :00 No [id number] 4 capsule DIRECTED 4 capsule DIRECTED (route: oral) Med Classific ation: Anti-Infe ctive Agents Breo Ellipta 100 mcg-25 mcg/dose powder for inhalation 04-30 00:00: 00 06-27 23:59 :00 No [id number] 1 inhalat ion DAILY 1 inhalation DAILY (route: inhalation ) Med Classific ation: Respirato ry Therapy Agents clonazepam 0.5 mg tablet 04-30 00:00: 00 06-27 23:59 :00 No [id number] 1 tablet BEDTIME 1 tablet BEDTIME (route: oral) Med Classific ation: Central Nervous System Agents docusate sodium 100 mg capsule 04-30 00:00: 00 06-27 23:59 :00 No [id number] 1 capsule 2 TIMES DAILY 1 capsule 2 TIMES DAILY (route: oral) Med Classific ation: Gastroint estinal Therapy Agents Eliquis 5 mg tablet 04-30 00:00: 00 06-27 23:59 :00 No [id number] 1 tablet 2 TIMES DAILY 1 tablet 2 TIMES DAILY (route: oral) Med Classific ation: Hematolog ical Agents finasteride 5 mg tablet 04-30 00:00: 00 06-27 23:59 :00 No [id number] 1 tablet DAILY 1 tablet DAILY (route: oral) Med Classific ation: Genitouri nary Therapy gabapentin 100 mg capsule 04-30 00:00: 00 06-27 23:59 :00 No [id number] 1 capsule DAILY 1 capsule DAILY (route: oral) Med Classific ation: Central Nervous System Agents gabapentin 300 mg capsule - 00:00: 00 06-27 23:59 :00 No [id number] 1 capsule BEDTIME 1 capsule BEDTIME (route: oral) Med Classific ation: Central Nervous System Agents mirtazapine 45 mg tablet - 00:00: 00 06-27 23:59 :00 No [id number] 1 tablet BEDTIME 1 tablet BEDTIME (route: oral) Med Classific ation: Central Nervous System Agents pantoprazol e 40 mg tablet,baltazar yed release - 00:00: 00 06-27 23:59 :00 No [id number] 1 tablet DAILY 1 tablet DAILY (route: oral) Med Classific ation: Gastroint estinal Therapy Agents ropinirole 0.25 mg tablet 04-30 00:00: 00 06-27 23:59 :00 No [id number] 1-4 tablet DIRECTED 1-4 tablet DIRECTED (route: oral) Med Classific ation: Central Nervous System Agents Rytary 36.25 mg-145 mg capsule,ext ended release 04-30 00:00: 00 06-27 23:59 :00 No [id number] 2 capsule 4 TIMES DAILY 2 capsule 4 TIMES DAILY (route: oral) Med Classific ation: Central Nervous System Agents venlafaxine ER 225 mg tablet,exte nded release 24 hr - 00:00: 00 06-27 23:59 :00 No [id number] 1 tablet BEDTIME 1 tablet BEDTIME (route: oral) Med Classific ation: Central Nervous System Agents amantadine HCl 100 mg capsule 3-04 00:00: 00 Yes [id number] 1 capsule DAILY 1 capsule DAILY (route: oral) Med Classific ation: Central Nervous System Agents clonazepam 0.5 mg tablet 3-04 00:00: 00 Yes [id number] 1 tablet BEDTIME 1 tablet BEDTIME (route: oral) Med Classific ation: Central Nervous System Agents Eliquis 5 mg tablet 3-04 00:00: 00 Yes [id number] 1 tablet 2 TIMES DAILY 1 tablet 2 TIMES DAILY (route: oral) Med Classific ation: Hematolog ical Agents finasteride 5 mg tablet 06-29 00:00: 00 Yes [id number] 1 tablet DAILY 1 tablet DAILY (route: oral) Med Classific ation: Genitouri nary Therapy gabapentin 100 mg capsule 06-29 00:00: 00 Yes [id number] 1 capsule DAILY 1 capsule DAILY (route: oral) Med Classific ation: Central Nervous System Agents gabapentin 300 mg capsule 06-29 00:00: 00 Yes [id number] 1 capsule BEDTIME 1 capsule BEDTIME (route: oral) Med Classific ation: Central Nervous System Agents mirtazapine 45 mg tablet 06-29 00:00: 00 Yes [id number] 1 tablet DAILY 1 tablet DAILY (route: oral) Med Classific ation: Central Nervous System Agents pantoprazol e 40 mg tablet,baltazar yed release 06-29 00:00: 00 10-21 23:59 :00 No [id number] 1 tablet DAILY 1 tablet DAILY (route: oral) Med Classific ation: Gastroint estinal Therapy Agents ropinirole 0.25 mg tablet 06-29 00:00: 00 Yes [id number] 2 tablet DAILY 2 tablet DAILY (route: oral) Med Classific ation: Central Nervous System Agents Rytary 36.25 mg-145 mg capsule,ext ended release 06-29 00:00: 00 Yes [id number] 3 capsule 4 TIMES DAILY 3 capsule 4 TIMES DAILY (route: oral) Med Classific ation: Central Nervous System Agents venlafaxine ER 225 mg tablet,exte nded release 24 hr 06-29 00:00: 00 Yes [id number] 1 tablet DAILY 1 tablet DAILY (route: oral) Med Classific ation: Central Nervous System Agents albuterol sulfate HFA 90 mcg/actuati on aerosol inhaler 06-29 00:00: 00 Yes [id number] 2 puff EVERY 6 HOURS 2 puff EVERY 6 HOURS (route: inhalation ) Med Classific ation: Respirato ry Therapy Agents Breo Ellipta 100 mcg-25 mcg/dose powder for inhalation 3-04 00:00: 00 Yes [id number] 1 inhalat ion DAILY 1 inhalation DAILY (route: inhalation ) Med Classific ation: Respirato ry Therapy Agents pantoprazol e 40 mg tablet,baltazar yed release 3- 00:00: 00 10-21 23:59 :00 No [id number] 1 tablet 2 TIMES DAILY 1 tablet 2 TIMES DAILY (route: oral) Med Classific ation: Gastroint estinal Therapy Agents fluconazole 200 mg tablet - 00:00: 00 Yes [id number] 200 mg DAILY 200 mg DAILY (route: oral) Alternate Route: SUBLINGUA L. Med Classific ation: Anti-Infe ctive Agents Carafate 100 mg/mL oral suspension 10-26 00:00: 00 Yes [id number] 10 mL 4 TIMES DAILY 10 mL 4 TIMES DAILY (route: oral) Med Classific ation: Gastroint estinal Therapy Agents Voquezna 20 mg tablet 10-26 00:00: 00 12-03 00:58 :03.3 47 No [id number] 1 tablet 2 TIMES DAILY 1 tablet 2 TIMES DAILY (route: oral) Med Classific ation: Gastroint estinal Therapy Agents Voquezna 20 mg tablet 10-21 00:00: 00 Yes [id number] 1 tablet 2 TIMES DAILY 1 tablet [...] MAINTAIN SITUATIONAL AWARENESS AND WILL NOTIFY CLINICAL SOIL ENGINEER AND PHYSICIAN/PROVIDER WITH ANY CHANGE IN CONDITION. [code = SKILLED NURSE TO PERFORM ENVIRONMENTAL SAFETY RISK ASSESSMENT AND FALL RISK ASSESSMENT AND PROVIDE INSTRUCTION TO IMPLEMENT ENVIRONMENTAL SAFETY AND FALL PREVENTION STRATEGIES THROUGHOUT THE CERTIFICATION PERIOD. SKILLED NURSE WILL MAINTAIN SITUATIONAL AWARENESS AND WILL NOTIFY CLINICAL SOIL ENGINEER AND PHYSICIAN/PROVIDER WITH ANY CHANGE IN CONDITION.] [...] [facility] PATIENT LIVING SITUATION/CAREGIVER STATUS: [facility] SP[facility]SE SUMMARIZE SKILLED NEED: DISEASE [...] End Date/Time Encounter Type Admission Type Attending [facility] Care Department Encounter ID Discharge Date Discharge Status Discharge Condition Discharge Reason Percent Goals Met 2025-02-24 00:00:00 2025-04-24 00:00:00 Outpatient RECERTIFIC ATION DEMETRI SLAUGHTER [facility] [id number] 6.25
--- OUTSIDE RECORDS SUMMARY | 2025-04-23 19:00 | XMS_ITS | Clinical Summary ---
Author Organization Unknown Care Team Providers Care Terminal Clerk Name Role Phone DARIAN DANGELO, ANYA Unavailable Unavaila aleisha CHRISTENSEN SCRAPER OPERATOR/CLIENT LIAISON, RENAN Unavailable Unava susie SLAUGHTER RN, DEMETRI Unavailable Unavailable Payers Payer Name Policy Type Policy Number Effective Date Expira tion Date MEDICARE - [facility] - PD [id number] Problems Condition Name Condition Details Condition Category [...] 01-11 00:00: 00 01-18 23:59 :00 No [id number] 1 tablet 2 TIMES DAILY 1 tablet 2 TIMES DAILY (route: oral) Med Classific ation: Anti-Infe ctive Agents lactulose 10 gram/15 mL oral solution 01-11 00:00: 00 04-01 23:59 :00 No [id number] 30 g DAILY 30 g DAILY (route: oral) Med Classific ation: Gastroint estinal Therapy Agents Rytary 36.25 mg-145 mg capsule,ext ended release 13 00:00: 00 04-01 23:59 :00 No [id number] 4 capsule 4 TIMES DAILY 4 capsule 4 TIMES DAILY (route: oral) Med Classific ation: Central Nervous System Agents Breo Ellipta 100 mcg-25 mcg/dose powder for inhalation - 00:00: 00 04-01 23:59 :00 No [id number] 1 inhalat ion ONCE DAILY 1 inhalation ONCE DAILY (route: inhalation ) Med Classific ation: Respirato ry Therapy Agents mirtazapine 45 mg tablet 12-12 00:00: 00 04-01 23:59 :00 No [id number] 1 tablet DAILY 1 tablet DAILY (route: oral) Med Classific ation: Central Nervous System Agents docusate sodium 100 mg capsule 16 00:00: 00 04-01 23:59 :00 No [id number] 1 capsule 2 TIMES DAILY 1 capsule 2 TIMES DAILY (route: oral) Med Classific ation: Gastroint estinal Therapy Agents Eliquis 5 mg tablet 10-26 00:00: 00 04-01 23:59 :00 No [id number] 1 tablet 2 TIMES DAILY 1 tablet 2 TIMES DAILY (route: oral) Med Classific ation: Hematolog ical Agents ferrous sulfate 325 mg (65 mg iron) tablet 10-26 00:00: 00 04-01 23:59 :00 No [id number] 1 tablet DAILY 1 tablet DAILY (route: oral) Med Classific ation: Electroly te Balance-N utritiona l Products finasteride 5 mg tablet 10-26 00:00: 00 04-01 23:59 :00 No [id number] 1 tablet DAILY 1 tablet DAILY (route: oral) Med Classific ation: Genitouri nary Therapy furosemide 40 mg tablet 10-26 00:00: 00 04-01 23:59 :00 No [id number] 1 tablet 2 TIMES DAILY 1 tablet 2 TIMES DAILY (route: oral) Med Classific ation: Cardiovas cular Therapy Agents magnesium 400 mg (as magnesium oxide) tablet 10-26 00:00: 00 04-01 23:59 :00 No [id number] 1 tablet DAILY 1 tablet DAILY (route: oral) Med Classific ation: Electroly te Balance-N utritiona l Products prednisolon e acetate 1 % eye drops,suspe nsion 10-26 00:00: 00 04-01 23:59 :00 No [id number] 1 drops 3 TIMES DAILY 1 drops 3 TIMES DAILY (route: ophthalmic (eye)) Med Classific ation: Ophthalmi c Agents ropinirole 0.25 mg tablet 09-28 00:00: 00 04-01 23:59 :00 No [id number] Per instruc tions DIRECTED Per instructio ns DIRECTED (route: oral) Med Classific ation: Central Nervous System Agents venlafaxine ER 225 mg tablet,exte nded release 24 hr 10-26 00:00: 00 04-01 23:59 :00 No [id number] 1 tablet DAILY 1 tablet DAILY (route: oral) Med Classific ation: Central Nervous System Agents Vitamin D3 125 mcg (5,000 unit) tablet 09-28 00:00: 00 04-01 23:59 :00 No [id number] 1 tablet DAILY 1 tablet DAILY (route: oral) Med Classific ation: Electroly te Balance-N utritiona l Products clonazepam 0.5 mg tablet 2023-04 0-11 00:00: 00 04-01 23:59 :00 No [id number] Per instruc tions BEDTIME Per instructio ns BEDTIME (route: oral) Med Classific ation: Central Nervous System Agents acetaminoph en 325 mg tablet 04-30 00:00: 00 06-27 23:59 :00 No [id number] 2 tablet EVERY 4 HOURS 2 tablet EVERY 4 HOURS (route: oral) Med Classific ation: Analgesic , Anti-infl ammatory or Antipyret ic albuterol sulfate HFA 90 mcg/actuati on aerosol inhaler 04-30 00:00: 00 06-27 23:59 :00 No [id number] 2 puff EVERY 6 HOURS 2 puff EVERY 6 HOURS (route: inhalation ) Med Classific ation: Respirato ry Therapy Agents amantadine HCl 100 mg tablet 04-30 00:00: 00 06-27 23:59 :00 No [id number] 1 tablet DAILY 1 tablet DAILY (route: oral) Med Classific ation: Central Nervous System Agents amoxicillin 500 mg capsule 04-30 00:00: 00 06-27 23:59 :00 No [id number] 4 capsule DIRECTED 4 capsule DIRECTED (route: oral) Med Classific ation: Anti-Infe ctive Agents Breo Ellipta 100 mcg-25 mcg/dose powder for inhalation 04-30 00:00: 00 06-27 23:59 :00 No [id number] 1 inhalat ion DAILY 1 inhalation DAILY (route: inhalation ) Med Classific ation: Respirato ry Therapy Agents clonazepam 0.5 mg tablet 04-30 00:00: 00 06-27 23:59 :00 No [id number] 1 tablet BEDTIME 1 tablet BEDTIME (route: oral) Med Classific ation: Central Nervous System Agents docusate sodium 100 mg capsule 04-30 00:00: 00 06-27 23:59 :00 No [id number] 1 capsule 2 TIMES DAILY 1 capsule 2 TIMES DAILY (route: oral) Med Classific ation: Gastroint estinal Therapy Agents Eliquis 5 mg tablet 04-30 00:00: 00 06-27 23:59 :00 No [id number] 1 tablet 2 TIMES DAILY 1 tablet 2 TIMES DAILY (route: oral) Med Classific ation: Hematolog ical Agents finasteride 5 mg tablet 04-30 00:00: 00 06-27 23:59 :00 No [id number] 1 tablet DAILY 1 tablet DAILY (route: oral) Med Classific ation: Genitouri nary Therapy gabapentin 100 mg capsule 04-30 00:00: 00 06-27 23:59 :00 No [id number] 1 capsule DAILY 1 capsule DAILY (route: oral) Med Classific ation: Central Nervous System Agents gabapentin 300 mg capsule - 00:00: 00 06-27 23:59 :00 No [id number] 1 capsule BEDTIME 1 capsule BEDTIME (route: oral) Med Classific ation: Central Nervous System Agents mirtazapine 45 mg tablet - 00:00: 00 06-27 23:59 :00 No [id number] 1 tablet BEDTIME 1 tablet BEDTIME (route: oral) Med Classific ation: Central Nervous System Agents pantoprazol e 40 mg tablet,baltazar yed release - 00:00: 00 06-27 23:59 :00 No [id number] 1 tablet DAILY 1 tablet DAILY (route: oral) Med Classific ation: Gastroint estinal Therapy Agents ropinirole 0.25 mg tablet 04-30 00:00: 00 06-27 23:59 :00 No [id number] 1-4 tablet DIRECTED 1-4 tablet DIRECTED (route: oral) Med Classific ation: Central Nervous System Agents Rytary 36.25 mg-145 mg capsule,ext ended release 04-30 00:00: 00 06-27 23:59 :00 No [id number] 2 capsule 4 TIMES DAILY 2 capsule 4 TIMES DAILY (route: oral) Med Classific ation: Central Nervous System Agents venlafaxine ER 225 mg tablet,exte nded release 24 hr - 00:00: 00 06-27 23:59 :00 No [id number] 1 tablet BEDTIME 1 tablet BEDTIME (route: oral) Med Classific ation: Central Nervous System Agents amantadine HCl 100 mg capsule 3-04 00:00: 00 Yes [id number] 1 capsule DAILY 1 capsule DAILY (route: oral) Med Classific ation: Central Nervous System Agents clonazepam 0.5 mg tablet 3-04 00:00: 00 Yes [id number] 1 tablet BEDTIME 1 tablet BEDTIME (route: oral) Med Classific ation: Central Nervous System Agents Eliquis 5 mg tablet 3-04 00:00: 00 Yes [id number] 1 tablet 2 TIMES DAILY 1 tablet 2 TIMES DAILY (route: oral) Med Classific ation: Hematolog ical Agents finasteride 5 mg tablet 06-29 00:00: 00 Yes [id number] 1 tablet DAILY 1 tablet DAILY (route: oral) Med Classific ation: Genitouri nary Therapy gabapentin 100 mg capsule 06-29 00:00: 00 Yes [id number] 1 capsule DAILY 1 capsule DAILY (route: oral) Med Classific ation: Central Nervous System Agents gabapentin 300 mg capsule 06-29 00:00: 00 Yes [id number] 1 capsule BEDTIME 1 capsule BEDTIME (route: oral) Med Classific ation: Central Nervous System Agents mirtazapine 45 mg tablet 06-29 00:00: 00 Yes [id number] 1 tablet DAILY 1 tablet DAILY (route: oral) Med Classific ation: Central Nervous System Agents pantoprazol e 40 mg tablet,baltazar yed release 06-29 00:00: 00 10-21 23:59 :00 No [id number] 1 tablet DAILY 1 tablet DAILY (route: oral) Med Classific ation: Gastroint estinal Therapy Agents ropinirole 0.25 mg tablet 06-29 00:00: 00 Yes [id number] 2 tablet DAILY 2 tablet DAILY (route: oral) Med Classific ation: Central Nervous System Agents Rytary 36.25 mg-145 mg capsule,ext ended release 06-29 00:00: 00 Yes [id number] 3 capsule 4 TIMES DAILY 3 capsule 4 TIMES DAILY (route: oral) Med Classific ation: Central Nervous System Agents venlafaxine ER 225 mg tablet,exte nded release 24 hr 06-29 00:00: 00 Yes [id number] 1 tablet DAILY 1 tablet DAILY (route: oral) Med Classific ation: Central Nervous System Agents albuterol sulfate HFA 90 mcg/actuati on aerosol inhaler 06-29 00:00: 00 Yes [id number] 2 puff EVERY 6 HOURS 2 puff EVERY 6 HOURS (route: inhalation ) Med Classific ation: Respirato ry Therapy Agents Breo Ellipta 100 mcg-25 mcg/dose powder for inhalation 3-04 00:00: 00 Yes [id number] 1 inhalat ion DAILY 1 inhalation DAILY (route: inhalation ) Med Classific ation: Respirato ry Therapy Agents pantoprazol e 40 mg tablet,baltazar yed release 3- 00:00: 00 10-21 23:59 :00 No [id number] 1 tablet 2 TIMES DAILY 1 tablet 2 TIMES DAILY (route: oral) Med Classific ation: Gastroint estinal Therapy Agents fluconazole 200 mg tablet - 00:00: 00 Yes [id number] 200 mg DAILY 200 mg DAILY (route: oral) Alternate Route: SUBLINGUA L. Med Classific ation: Anti-Infe ctive Agents Carafate 100 mg/mL oral suspension 10-26 00:00: 00 Yes [id number] 10 mL 4 TIMES DAILY 10 mL 4 TIMES DAILY (route: oral) Med Classific ation: Gastroint estinal Therapy Agents Voquezna 20 mg tablet 10-26 00:00: 00 12-03 00:58 :03.3 47 No [id number] 1 tablet 2 TIMES DAILY 1 tablet 2 TIMES DAILY (route: oral) Med Classific ation: Gastroint estinal Therapy Agents Voquezna 20 mg tablet 10-21 00:00: 00 Yes [id number] 1 tablet 2 TIMES DAILY 1 tablet [...] MAINTAIN SITUATIONAL AWARENESS AND WILL NOTIFY CLINICAL MOBILE ELECTRONICS INSTALLER AND PHYSICIAN/PROVIDER WITH ANY CHANGE IN CONDITION. [code = SKILLED NURSE TO PERFORM ENVIRONMENTAL SAFETY RISK ASSESSMENT AND FALL RISK ASSESSMENT AND PROVIDE INSTRUCTION TO IMPLEMENT ENVIRONMENTAL SAFETY AND FALL PREVENTION STRATEGIES THROUGHOUT THE CERTIFICATION PERIOD. SKILLED NURSE WILL MAINTAIN SITUATIONAL AWARENESS AND WILL NOTIFY CLINICAL MOBILE ELECTRONICS INSTALLER AND PHYSICIAN/PROVIDER WITH ANY CHANGE IN CONDITION.] [...] LASIX PATIENT LIVING SITUATION/CAREGIVER STATUS: [facility] SUMMARIZE SKILLED NEED: DISEASE [...] End Date/Time Encounter Type Admission Type Attending [facility] Care Department Encounter ID Discharge Date Discharge Status Discharge Condition Discharge Reason Percent Goals Met 2025-02-24 00:00:00 2025-04-24 00:00:00 Outpatient RECERTIFIC ATION DEMETRI SLAUGHTER [facility] [id number] 6.25
--- OUTSIDE RECORDS SUMMARY | 2025-04-23 19:00 | XMS_ITS | Clinical Summary ---
Author Organization Unknown Care Team Providers Care Stopper Grinder Name Role Phone DARIAN DANGELO, ANYA Unavailable Unavaila aleisha CHRISTENSEN DATA COMMUNICATIONS TECHNICIAN/PILOT PLANT OPERATOR, RENAN Unavailable Unava susie SLAUGHTER RN, DEMETRI Unavailable Unavailable Payers Payer Name Policy Type Policy Number Effective Date Expira tion Date MEDICARE - [facility] - PD [id number] Problems Condition Name Condition Details Condition Category [...] OF URINARY DEVICE Active 04-28 00:00: 00 JAIL (CURRENT) USE OF ANTICOAGULAN TS Active 04-28 [...] 01-11 00:00: 00 01-18 23:59 :00 No [id number] 1 tablet 2 TIMES DAILY 1 tablet 2 TIMES DAILY (route: oral) Med Classific ation: Anti-Infe ctive Agents lactulose 10 gram/15 mL oral solution 01-11 00:00: 00 04-01 23:59 :00 No [id number] 30 g DAILY 30 g DAILY (route: oral) Med Classific ation: Gastroint estinal Therapy Agents Rytary 36.25 mg-145 mg capsule,ext ended release 13 00:00: 00 04-01 23:59 :00 No [id number] 4 capsule 4 TIMES DAILY 4 capsule 4 TIMES DAILY (route: oral) Med Classific ation: Central Nervous System Agents Breo Ellipta 100 mcg-25 mcg/dose powder for inhalation - 00:00: 00 04-01 23:59 :00 No [id number] 1 inhalat ion ONCE DAILY 1 inhalation ONCE DAILY (route: inhalation ) Med Classific ation: Respirato ry Therapy Agents mirtazapine 45 mg tablet 12-12 00:00: 00 04-01 23:59 :00 No [id number] 1 tablet DAILY 1 tablet DAILY (route: oral) Med Classific ation: Central Nervous System Agents docusate sodium 100 mg capsule 16 00:00: 00 04-01 23:59 :00 No [id number] 1 capsule 2 TIMES DAILY 1 capsule 2 TIMES DAILY (route: oral) Med Classific ation: Gastroint estinal Therapy Agents Eliquis 5 mg tablet 10-26 00:00: 00 04-01 23:59 :00 No [id number] 1 tablet 2 TIMES DAILY 1 tablet 2 TIMES DAILY (route: oral) Med Classific ation: Hematolog ical Agents ferrous sulfate 325 mg (65 mg iron) tablet 10-26 00:00: 00 04-01 23:59 :00 No [id number] 1 tablet DAILY 1 tablet DAILY (route: oral) Med Classific ation: Electroly te Balance-N utritiona l Products finasteride 5 mg tablet 10-26 00:00: 00 04-01 23:59 :00 No [id number] 1 tablet DAILY 1 tablet DAILY (route: oral) Med Classific ation: Genitouri nary Therapy furosemide 40 mg tablet 10-26 00:00: 00 04-01 23:59 :00 No [id number] 1 tablet 2 TIMES DAILY 1 tablet 2 TIMES DAILY (route: oral) Med Classific ation: Cardiovas cular Therapy Agents magnesium 400 mg (as magnesium oxide) tablet 10-26 00:00: 00 04-01 23:59 :00 No [id number] 1 tablet DAILY 1 tablet DAILY (route: oral) Med Classific ation: Electroly te Balance-N utritiona l Products prednisolon e acetate 1 % eye drops,suspe nsion 10-26 00:00: 00 04-01 23:59 :00 No [id number] 1 drops 3 TIMES DAILY 1 drops 3 TIMES DAILY (route: ophthalmic (eye)) Med Classific ation: Ophthalmi c Agents ropinirole 0.25 mg tablet 09-28 00:00: 00 04-01 23:59 :00 No [id number] Per instruc tions DIRECTED Per instructio ns DIRECTED (route: oral) Med Classific ation: Central Nervous System Agents venlafaxine ER 225 mg tablet,exte nded release 24 hr 10-26 00:00: 00 04-01 23:59 :00 No [id number] 1 tablet DAILY 1 tablet DAILY (route: oral) Med Classific ation: Central Nervous System Agents Vitamin D3 125 mcg (5,000 unit) tablet 09-28 00:00: 00 04-01 23:59 :00 No [id number] 1 tablet DAILY 1 tablet DAILY (route: oral) Med Classific ation: Electroly te Balance-N utritiona l Products clonazepam 0.5 mg tablet 2023-04 0-11 00:00: 00 04-01 23:59 :00 No [id number] Per instruc tions BEDTIME Per instructio ns BEDTIME (route: oral) Med Classific ation: Central Nervous System Agents acetaminoph en 325 mg tablet 04-30 00:00: 00 06-27 23:59 :00 No [id number] 2 tablet EVERY 4 HOURS 2 tablet EVERY 4 HOURS (route: oral) Med Classific ation: Analgesic , Anti-infl ammatory or Antipyret ic albuterol sulfate HFA 90 mcg/actuati on aerosol inhaler 04-30 00:00: 00 06-27 23:59 :00 No [id number] 2 puff EVERY 6 HOURS 2 puff EVERY 6 HOURS (route: inhalation ) Med Classific ation: Respirato ry Therapy Agents amantadine HCl 100 mg tablet 04-30 00:00: 00 06-27 23:59 :00 No [id number] 1 tablet DAILY 1 tablet DAILY (route: oral) Med Classific ation: Central Nervous System Agents amoxicillin 500 mg capsule 04-30 00:00: 00 06-27 23:59 :00 No [id number] 4 capsule DIRECTED 4 capsule DIRECTED (route: oral) Med Classific ation: Anti-Infe ctive Agents Breo Ellipta 100 mcg-25 mcg/dose powder for inhalation 04-30 00:00: 00 06-27 23:59 :00 No [id number] 1 inhalat ion DAILY 1 inhalation DAILY (route: inhalation ) Med Classific ation: Respirato ry Therapy Agents clonazepam 0.5 mg tablet 04-30 00:00: 00 06-27 23:59 :00 No [id number] 1 tablet BEDTIME 1 tablet BEDTIME (route: oral) Med Classific ation: Central Nervous System Agents docusate sodium 100 mg capsule 04-30 00:00: 00 06-27 23:59 :00 No [id number] 1 capsule 2 TIMES DAILY 1 capsule 2 TIMES DAILY (route: oral) Med Classific ation: Gastroint estinal Therapy Agents Eliquis 5 mg tablet 04-30 00:00: 00 06-27 23:59 :00 No [id number] 1 tablet 2 TIMES DAILY 1 tablet 2 TIMES DAILY (route: oral) Med Classific ation: Hematolog ical Agents finasteride 5 mg tablet 04-30 00:00: 00 06-27 23:59 :00 No [id number] 1 tablet DAILY 1 tablet DAILY (route: oral) Med Classific ation: Genitouri nary Therapy gabapentin 100 mg capsule 04-30 00:00: 00 06-27 23:59 :00 No [id number] 1 capsule DAILY 1 capsule DAILY (route: oral) Med Classific ation: Central Nervous System Agents gabapentin 300 mg capsule - 00:00: 00 06-27 23:59 :00 No [id number] 1 capsule BEDTIME 1 capsule BEDTIME (route: oral) Med Classific ation: Central Nervous System Agents mirtazapine 45 mg tablet - 00:00: 00 06-27 23:59 :00 No [id number] 1 tablet BEDTIME 1 tablet BEDTIME (route: oral) Med Classific ation: Central Nervous System Agents pantoprazol e 40 mg tablet,baltazar yed release - 00:00: 00 06-27 23:59 :00 No [id number] 1 tablet DAILY 1 tablet DAILY (route: oral) Med Classific ation: Gastroint estinal Therapy Agents ropinirole 0.25 mg tablet 04-30 00:00: 00 06-27 23:59 :00 No [id number] 1-4 tablet DIRECTED 1-4 tablet DIRECTED (route: oral) Med Classific ation: Central Nervous System Agents Rytary 36.25 mg-145 mg capsule,ext ended release 04-30 00:00: 00 06-27 23:59 :00 No [id number] 2 capsule 4 TIMES DAILY 2 capsule 4 TIMES DAILY (route: oral) Med Classific ation: Central Nervous System Agents venlafaxine ER 225 mg tablet,exte nded release 24 hr - 00:00: 00 06-27 23:59 :00 No [id number] 1 tablet BEDTIME 1 tablet BEDTIME (route: oral) Med Classific ation: Central Nervous System Agents amantadine HCl 100 mg capsule 3-04 00:00: 00 Yes [id number] 1 capsule DAILY 1 capsule DAILY (route: oral) Med Classific ation: Central Nervous System Agents clonazepam 0.5 mg tablet 3-04 00:00: 00 Yes [id number] 1 tablet BEDTIME 1 tablet BEDTIME (route: oral) Med Classific ation: Central Nervous System Agents Eliquis 5 mg tablet 3-04 00:00: 00 Yes [id number] 1 tablet 2 TIMES DAILY 1 tablet 2 TIMES DAILY (route: oral) Med Classific ation: Hematolog ical Agents finasteride 5 mg tablet 06-29 00:00: 00 Yes [id number] 1 tablet DAILY 1 tablet DAILY (route: oral) Med Classific ation: Genitouri nary Therapy gabapentin 100 mg capsule 06-29 00:00: 00 Yes [id number] 1 capsule DAILY 1 capsule DAILY (route: oral) Med Classific ation: Central Nervous System Agents gabapentin 300 mg capsule 06-29 00:00: 00 Yes [id number] 1 capsule BEDTIME 1 capsule BEDTIME (route: oral) Med Classific ation: Central Nervous System Agents mirtazapine 45 mg tablet 06-29 00:00: 00 Yes [id number] 1 tablet DAILY 1 tablet DAILY (route: oral) Med Classific ation: Central Nervous System Agents pantoprazol e 40 mg tablet,baltazar yed release 06-29 00:00: 00 10-21 23:59 :00 No [id number] 1 tablet DAILY 1 tablet DAILY (route: oral) Med Classific ation: Gastroint estinal Therapy Agents ropinirole 0.25 mg tablet 06-29 00:00: 00 Yes [id number] 2 tablet DAILY 2 tablet DAILY (route: oral) Med Classific ation: Central Nervous System Agents Rytary 36.25 mg-145 mg capsule,ext ended release 06-29 00:00: 00 Yes [id number] 3 capsule 4 TIMES DAILY 3 capsule 4 TIMES DAILY (route: oral) Med Classific ation: Central Nervous System Agents venlafaxine ER 225 mg tablet,exte nded release 24 hr 06-29 00:00: 00 Yes [id number] 1 tablet DAILY 1 tablet DAILY (route: oral) Med Classific ation: Central Nervous System Agents albuterol sulfate HFA 90 mcg/actuati on aerosol inhaler 06-29 00:00: 00 Yes [id number] 2 puff EVERY 6 HOURS 2 puff EVERY 6 HOURS (route: inhalation ) Med Classific ation: Respirato ry Therapy Agents Breo Ellipta 100 mcg-25 mcg/dose powder for inhalation 3-04 00:00: 00 Yes [id number] 1 inhalat ion DAILY 1 inhalation DAILY (route: inhalation ) Med Classific ation: Respirato ry Therapy Agents pantoprazol e 40 mg tablet,baltazar yed release 3- 00:00: 00 10-21 23:59 :00 No [id number] 1 tablet 2 TIMES DAILY 1 tablet 2 TIMES DAILY (route: oral) Med Classific ation: Gastroint estinal Therapy Agents fluconazole 200 mg tablet - 00:00: 00 Yes [id number] 200 mg DAILY 200 mg DAILY (route: oral) Alternate Route: SUBLINGUA L. Med Classific ation: Anti-Infe ctive Agents Carafate 100 mg/mL oral suspension 10-26 00:00: 00 Yes [id number] 10 mL 4 TIMES DAILY 10 mL 4 TIMES DAILY (route: oral) Med Classific ation: Gastroint estinal Therapy Agents Voquezna 20 mg tablet 10-26 00:00: 00 12-03 00:58 :03.3 47 No [id number] 1 tablet 2 TIMES DAILY 1 tablet 2 TIMES DAILY (route: oral) Med Classific ation: Gastroint estinal Therapy Agents Voquezna 20 mg tablet 10-21 00:00: 00 Yes [id number] 1 tablet 2 TIMES DAILY 1 tablet [...] BLOCKAGE/LEAKAGE, HEAVY SEDIMENT. 1 - 3 PRN HALF-WAY VISITS FOR CATHETER CHANGE(S) AND/OR TROUBLESHOOTING. [code = SKILLED NURSE TO INSTRUCT PATIENT/CAREGIVER AND PERFORM CARE AND MANAGEMENT OF INDWELLING URINARY CATHETER. [place] CATHETER INSERTION WITH 18 FR CATHETER WITH 10 ML BALLOON VIA STERILE TECHNIQUE, CHANGE Q 4 WEEKS AND PRN FOR LEAKING OR MALFUNCTIONING CATHETER. IRRIGATE URINARY CATHETER WITH 30-60CC NORMAL SALINE PRN BLOCKAGE/LEAKAGE, HEAVY SEDIMENT. 1 - 3 PRN HALF-WAY VISITS FOR CATHETER CHANGE(S) AND/OR TROUBLESHOOTING.] Future [...] MAINTAIN SITUATIONAL AWARENESS AND WILL NOTIFY CLINICAL GEOLOGY FACULTY MEMBER AND PHYSICIAN/PROVIDER WITH ANY CHANGE IN CONDITION. [code = SKILLED NURSE TO PERFORM ENVIRONMENTAL SAFETY RISK ASSESSMENT AND FALL RISK ASSESSMENT AND PROVIDE INSTRUCTION TO IMPLEMENT ENVIRONMENTAL SAFETY AND FALL PREVENTION STRATEGIES THROUGHOUT THE CERTIFICATION PERIOD. SKILLED NURSE WILL MAINTAIN SITUATIONAL AWARENESS AND WILL NOTIFY CLINICAL GEOLOGY FACULTY MEMBER AND PHYSICIAN/PROVIDER WITH ANY CHANGE IN CONDITION.] [...] LASIX PATIENT LIVING SITUATION/CAREGIVER STATUS: [facility] SUM[facility] SKILLED NEED: [...] CARE WILL BE ESTABLISHED THAT MEETS PATIENT'S HALF-WAY NEEDS AND INCLUDES PATIENT GOAL FOR HOME [...] Date/Time Encounter Type Admission Type Attending [facility] Care Department Encounter ID Discharge Date Discharge Status Discharge Condition Discharge Reason Percent Goals Met 2025-02-24 00:00:00 2025-04-24 00:00:00 Outpatient RECERTIFIC ATION DEMETRI SLAUGHTER [facility] [id number] 6.25
--- OUTSIDE RECORDS SUMMARY | 2025-04-23 19:00 | XMS_ITS | Clinical Summary ---
Author Organization Unknown Care Team Providers Care Skip [employer]er [employer] Name Role Phone DARIAN DANGELO, ANYA Unavailable Unavaila aleisha CHRISTENSEN NUTRITION SERVICES MANAGER/MEMORIAL MARKER DESIGNER, RENAN Unavailable Unava susie SLAUGHTER RN, DEMETRI Unavailable Unavailable Payers Payer Name Policy Type Policy Number Effective Date Expira tion Date MEDICARE - [facility] - PD [id number] Problems Condition Name Condition Details Condition Category [...] OF URINARY DEVICE Active 04-28 00:00: 00 DETENTION (CURRENT) USE OF ANTICOAGULAN TS Active 04-28 [...] 01-11 00:00: 00 01-18 23:59 :00 No [id number] 1 tablet 2 TIMES DAILY 1 tablet 2 TIMES DAILY (route: oral) Med Classific ation: Anti-Infe ctive Agents lactulose 10 gram/15 mL oral solution 01-11 00:00: 00 04-01 23:59 :00 No [id number] 30 g DAILY 30 g DAILY (route: oral) Med Classific ation: Gastroint estinal Therapy Agents Rytary 36.25 mg-145 mg capsule,ext ended release 13 00:00: 00 04-01 23:59 :00 No [id number] 4 capsule 4 TIMES DAILY 4 capsule 4 TIMES DAILY (route: oral) Med Classific ation: Central Nervous System Agents Breo Ellipta 100 mcg-25 mcg/dose powder for inhalation - 00:00: 00 04-01 23:59 :00 No [id number] 1 inhalat ion ONCE DAILY 1 inhalation ONCE DAILY (route: inhalation ) Med Classific ation: Respirato ry Therapy Agents mirtazapine 45 mg tablet 12-12 00:00: 00 04-01 23:59 :00 No [id number] 1 tablet DAILY 1 tablet DAILY (route: oral) Med Classific ation: Central Nervous System Agents docusate sodium 100 mg capsule 16 00:00: 00 04-01 23:59 :00 No [id number] 1 capsule 2 TIMES DAILY 1 capsule 2 TIMES DAILY (route: oral) Med Classific ation: Gastroint estinal Therapy Agents Eliquis 5 mg tablet 10-26 00:00: 00 04-01 23:59 :00 No [id number] 1 tablet 2 TIMES DAILY 1 tablet 2 TIMES DAILY (route: oral) Med Classific ation: Hematolog ical Agents ferrous sulfate 325 mg (65 mg iron) tablet 10-26 00:00: 00 04-01 23:59 :00 No [id number] 1 tablet DAILY 1 tablet DAILY (route: oral) Med Classific ation: Electroly te Balance-N utritiona l Products finasteride 5 mg tablet 10-26 00:00: 00 04-01 23:59 :00 No [id number] 1 tablet DAILY 1 tablet DAILY (route: oral) Med Classific ation: Genitouri nary Therapy furosemide 40 mg tablet 10-26 00:00: 00 04-01 23:59 :00 No [id number] 1 tablet 2 TIMES DAILY 1 tablet 2 TIMES DAILY (route: oral) Med Classific ation: Cardiovas cular Therapy Agents magnesium 400 mg (as magnesium oxide) tablet 10-26 00:00: 00 04-01 23:59 :00 No [id number] 1 tablet DAILY 1 tablet DAILY (route: oral) Med Classific ation: Electroly te Balance-N utritiona l Products prednisolon e acetate 1 % eye drops,suspe nsion 10-26 00:00: 00 04-01 23:59 :00 No [id number] 1 drops 3 TIMES DAILY 1 drops 3 TIMES DAILY (route: ophthalmic (eye)) Med Classific ation: Ophthalmi c Agents ropinirole 0.25 mg tablet 09-28 00:00: 00 04-01 23:59 :00 No [id number] Per instruc tions DIRECTED Per instructio ns DIRECTED (route: oral) Med Classific ation: Central Nervous System Agents venlafaxine ER 225 mg tablet,exte nded release 24 hr 10-26 00:00: 00 04-01 23:59 :00 No [id number] 1 tablet DAILY 1 tablet DAILY (route: oral) Med Classific ation: Central Nervous System Agents Vitamin D3 125 mcg (5,000 unit) tablet 09-28 00:00: 00 04-01 23:59 :00 No [id number] 1 tablet DAILY 1 tablet DAILY (route: oral) Med Classific ation: Electroly te Balance-N utritiona l Products clonazepam 0.5 mg tablet 2023-04 0-11 00:00: 00 04-01 23:59 :00 No [id number] Per instruc tions BEDTIME Per instructio ns BEDTIME (route: oral) Med Classific ation: Central Nervous System Agents acetaminoph en 325 mg tablet 04-30 00:00: 00 06-27 23:59 :00 No [id number] 2 tablet EVERY 4 HOURS 2 tablet EVERY 4 HOURS (route: oral) Med Classific ation: Analgesic , Anti-infl ammatory or Antipyret ic albuterol sulfate HFA 90 mcg/actuati on aerosol inhaler 04-30 00:00: 00 06-27 23:59 :00 No [id number] 2 puff EVERY 6 HOURS 2 puff EVERY 6 HOURS (route: inhalation ) Med Classific ation: Respirato ry Therapy Agents amantadine HCl 100 mg tablet 04-30 00:00: 00 06-27 23:59 :00 No [id number] 1 tablet DAILY 1 tablet DAILY (route: oral) Med Classific ation: Central Nervous System Agents amoxicillin 500 mg capsule 04-30 00:00: 00 06-27 23:59 :00 No [id number] 4 capsule DIRECTED 4 capsule DIRECTED (route: oral) Med Classific ation: Anti-Infe ctive Agents Breo Ellipta 100 mcg-25 mcg/dose powder for inhalation 04-30 00:00: 00 06-27 23:59 :00 No [id number] 1 inhalat ion DAILY 1 inhalation DAILY (route: inhalation ) Med Classific ation: Respirato ry Therapy Agents clonazepam 0.5 mg tablet 04-30 00:00: 00 06-27 23:59 :00 No [id number] 1 tablet BEDTIME 1 tablet BEDTIME (route: oral) Med Classific ation: Central Nervous System Agents docusate sodium 100 mg capsule 04-30 00:00: 00 06-27 23:59 :00 No [id number] 1 capsule 2 TIMES DAILY 1 capsule 2 TIMES DAILY (route: oral) Med Classific ation: Gastroint estinal Therapy Agents Eliquis 5 mg tablet 04-30 00:00: 00 06-27 23:59 :00 No [id number] 1 tablet 2 TIMES DAILY 1 tablet 2 TIMES DAILY (route: oral) Med Classific ation: Hematolog ical Agents finasteride 5 mg tablet 04-30 00:00: 00 06-27 23:59 :00 No [id number] 1 tablet DAILY 1 tablet DAILY (route: oral) Med Classific ation: Genitouri nary Therapy gabapentin 100 mg capsule 04-30 00:00: 00 06-27 23:59 :00 No [id number] 1 capsule DAILY 1 capsule DAILY (route: oral) Med Classific ation: Central Nervous System Agents gabapentin 300 mg capsule - 00:00: 00 06-27 23:59 :00 No [id number] 1 capsule BEDTIME 1 capsule BEDTIME (route: oral) Med Classific ation: Central Nervous System Agents mirtazapine 45 mg tablet - 00:00: 00 06-27 23:59 :00 No [id number] 1 tablet BEDTIME 1 tablet BEDTIME (route: oral) Med Classific ation: Central Nervous System Agents pantoprazol e 40 mg tablet,baltazar yed release - 00:00: 00 06-27 23:59 :00 No [id number] 1 tablet DAILY 1 tablet DAILY (route: oral) Med Classific ation: Gastroint estinal Therapy Agents ropinirole 0.25 mg tablet 04-30 00:00: 00 06-27 23:59 :00 No [id number] 1-4 tablet DIRECTED 1-4 tablet DIRECTED (route: oral) Med Classific ation: Central Nervous System Agents Rytary 36.25 mg-145 mg capsule,ext ended release 04-30 00:00: 00 06-27 23:59 :00 No [id number] 2 capsule 4 TIMES DAILY 2 capsule 4 TIMES DAILY (route: oral) Med Classific ation: Central Nervous System Agents venlafaxine ER 225 mg tablet,exte nded release 24 hr - 00:00: 00 06-27 23:59 :00 No [id number] 1 tablet BEDTIME 1 tablet BEDTIME (route: oral) Med Classific ation: Central Nervous System Agents amantadine HCl 100 mg capsule 3-04 00:00: 00 Yes [id number] 1 capsule DAILY 1 capsule DAILY (route: oral) Med Classific ation: Central Nervous System Agents clonazepam 0.5 mg tablet 3-04 00:00: 00 Yes [id number] 1 tablet BEDTIME 1 tablet BEDTIME (route: oral) Med Classific ation: Central Nervous System Agents Eliquis 5 mg tablet 3-04 00:00: 00 Yes [id number] 1 tablet 2 TIMES DAILY 1 tablet 2 TIMES DAILY (route: oral) Med Classific ation: Hematolog ical Agents finasteride 5 mg tablet 06-29 00:00: 00 Yes [id number] 1 tablet DAILY 1 tablet DAILY (route: oral) Med Classific ation: Genitouri nary Therapy gabapentin 100 mg capsule 06-29 00:00: 00 Yes [id number] 1 capsule DAILY 1 capsule DAILY (route: oral) Med Classific ation: Central Nervous System Agents gabapentin 300 mg capsule 06-29 00:00: 00 Yes [id number] 1 capsule BEDTIME 1 capsule BEDTIME (route: oral) Med Classific ation: Central Nervous System Agents mirtazapine 45 mg tablet 06-29 00:00: 00 Yes [id number] 1 tablet DAILY 1 tablet DAILY (route: oral) Med Classific ation: Central Nervous System Agents pantoprazol e 40 mg tablet,baltazar yed release 06-29 00:00: 00 10-21 23:59 :00 No [id number] 1 tablet DAILY 1 tablet DAILY (route: oral) Med Classific ation: Gastroint estinal Therapy Agents ropinirole 0.25 mg tablet 06-29 00:00: 00 Yes [id number] 2 tablet DAILY 2 tablet DAILY (route: oral) Med Classific ation: Central Nervous System Agents Rytary 36.25 mg-145 mg capsule,ext ended release 06-29 00:00: 00 Yes [id number] 3 capsule 4 TIMES DAILY 3 capsule 4 TIMES DAILY (route: oral) Med Classific ation: Central Nervous System Agents venlafaxine ER 225 mg tablet,exte nded release 24 hr 06-29 00:00: 00 Yes [id number] 1 tablet DAILY 1 tablet DAILY (route: oral) Med Classific ation: Central Nervous System Agents albuterol sulfate HFA 90 mcg/actuati on aerosol inhaler 06-29 00:00: 00 Yes [id number] 2 puff EVERY 6 HOURS 2 puff EVERY 6 HOURS (route: inhalation ) Med Classific ation: Respirato ry Therapy Agents Breo Ellipta 100 mcg-25 mcg/dose powder for inhalation 3-04 00:00: 00 Yes [id number] 1 inhalat ion DAILY 1 inhalation DAILY (route: inhalation ) Med Classific ation: Respirato ry Therapy Agents pantoprazol e 40 mg tablet,baltazar yed release 3- 00:00: 00 10-21 23:59 :00 No [id number] 1 tablet 2 TIMES DAILY 1 tablet 2 TIMES DAILY (route: oral) Med Classific ation: Gastroint estinal Therapy Agents fluconazole 200 mg tablet - 00:00: 00 Yes [id number] 200 mg DAILY 200 mg DAILY (route: oral) Alternate Route: SUBLINGUA L. Med Classific ation: Anti-Infe ctive Agents Carafate 100 mg/mL oral suspension 10-26 00:00: 00 Yes [id number] 10 mL 4 TIMES DAILY 10 mL 4 TIMES DAILY (route: oral) Med Classific ation: Gastroint estinal Therapy Agents Voquezna 20 mg tablet 10-26 00:00: 00 12-03 00:58 :03.3 47 No [id number] 1 tablet 2 TIMES DAILY 1 tablet 2 TIMES DAILY (route: oral) Med Classific ation: Gastroint estinal Therapy Agents Voquezna 20 mg tablet 10-21 00:00: 00 Yes [id number] 1 tablet 2 TIMES DAILY 1 tablet [...] BLOCKAGE/LEAKAGE, HEAVY SEDIMENT. 1 - 3 PRN LONG TERM VISITS FOR CATHETER CHANGE(S) AND/OR TROUBLESHOOTING. [code = SKILLED NURSE TO INSTRUCT PATIENT/CAREGIVER AND PERFORM CARE AND MANAGEMENT OF INDWELLING URINARY CATHETER. [place] CATHETER INSERTION WITH 18 FR CATHETER WITH 10 ML BALLOON VIA STERILE TECHNIQUE, CHANGE Q 4 WEEKS AND PRN FOR LEAKING OR MALFUNCTIONING CATHETER. IRRIGATE URINARY CATHETER WITH 30-60CC NORMAL SALINE PRN BLOCKAGE/LEAKAGE, HEAVY SEDIMENT. 1 - 3 PRN LONG TERM VISITS FOR CATHETER CHANGE(S) AND/OR TROUBLESHOOTING.] Future [...] MAINTAIN SITUATIONAL AWARENESS AND WILL NOTIFY CLINICAL MARBLE MECHANIC HELPER AND PHYSICIAN/PROVIDER WITH ANY CHANGE IN CONDITION. [code = SKILLED NURSE TO PERFORM ENVIRONMENTAL SAFETY RISK ASSESSMENT AND FALL RISK ASSESSMENT AND PROVIDE INSTRUCTION TO IMPLEMENT ENVIRONMENTAL SAFETY AND FALL PREVENTION STRATEGIES THROUGHOUT THE CERTIFICATION PERIOD. SKILLED NURSE WILL MAINTAIN SITUATIONAL AWARENESS AND WILL NOTIFY CLINICAL MARBLE MECHANIC HELPER AND PHYSICIAN/PROVIDER WITH ANY CHANGE IN CONDITION.] [...] LASIX PATIENT LIVING SITUATION/CAREGIVER STATUS: [facility] SKILLED NEED: DISEASE [...] CARE WILL BE ESTABLISHED THAT MEETS PATIENT'S LONG TERM NEEDS AND INCLUDES PATIENT GOAL FOR HOME [...] End Date/Time Encounter Type Admission Type Attending [facility] Care Department Encounter ID Discharge Date Discharge Status Discharge Condition Discharge Reason Percent Goals Met 2025-02-24 00:00:00 2025-04-24 00:00:00 Outpatient RECERTIFIC ATION DEMETRI SLAUGHTER [facility] [id number] 6.25
--- OUTSIDE RECORDS SUMMARY | 2025-04-23 19:00 | XMS_ITS | Clinical Summary ---
Author Organization Unknown Care Team Providers Care Grid Molder Name Role Phone DARIAN DANGELO, ANYA Unavailable Unavaila aleisha CHRISTENSEN GENERAL AGENT/SPECIAL PROGRAMS DIRECTOR, RENAN Unavailable Unava ussie SLAUGHTER RN, DEMETRI Unavailable Unavailable Payers Payer Name Policy Type Policy Number Effective Date Expira tion Date MEDICARE - [facility] - PD [id number] Problems Condition Name Condition Details Condition Category [...] 01-11 00:00: 00 01-18 23:59 :00 No [id number] 1 tablet 2 TIMES DAILY 1 tablet 2 TIMES DAILY (route: oral) Med Classific ation: Anti-Infe ctive Agents lactulose 10 gram/15 mL oral solution 01-11 00:00: 00 04-01 23:59 :00 No [id number] 30 g DAILY 30 g DAILY (route: oral) Med Classific ation: Gastroint estinal Therapy Agents Rytary 36.25 mg-145 mg capsule,ext ended release 13 00:00: 00 04-01 23:59 :00 No [id number] 4 capsule 4 TIMES DAILY 4 capsule 4 TIMES DAILY (route: oral) Med Classific ation: Central Nervous System Agents Breo Ellipta 100 mcg-25 mcg/dose powder for inhalation - 00:00: 00 04-01 23:59 :00 No [id number] 1 inhalat ion ONCE DAILY 1 inhalation ONCE DAILY (route: inhalation ) Med Classific ation: Respirato ry Therapy Agents mirtazapine 45 mg tablet 12-12 00:00: 00 04-01 23:59 :00 No [id number] 1 tablet DAILY 1 tablet DAILY (route: oral) Med Classific ation: Central Nervous System Agents docusate sodium 100 mg capsule 16 00:00: 00 04-01 23:59 :00 No [id number] 1 capsule 2 TIMES DAILY 1 capsule 2 TIMES DAILY (route: oral) Med Classific ation: Gastroint estinal Therapy Agents Eliquis 5 mg tablet 10-26 00:00: 00 04-01 23:59 :00 No [id number] 1 tablet 2 TIMES DAILY 1 tablet 2 TIMES DAILY (route: oral) Med Classific ation: Hematolog ical Agents ferrous sulfate 325 mg (65 mg iron) tablet 10-26 00:00: 00 04-01 23:59 :00 No [id number] 1 tablet DAILY 1 tablet DAILY (route: oral) Med Classific ation: Electroly te Balance-N utritiona l Products finasteride 5 mg tablet 10-26 00:00: 00 04-01 23:59 :00 No [id number] 1 tablet DAILY 1 tablet DAILY (route: oral) Med Classific ation: Genitouri nary Therapy furosemide 40 mg tablet 10-26 00:00: 00 04-01 23:59 :00 No [id number] 1 tablet 2 TIMES DAILY 1 tablet 2 TIMES DAILY (route: oral) Med Classific ation: Cardiovas cular Therapy Agents magnesium 400 mg (as magnesium oxide) tablet 10-26 00:00: 00 04-01 23:59 :00 No [id number] 1 tablet DAILY 1 tablet DAILY (route: oral) Med Classific ation: Electroly te Balance-N utritiona l Products prednisolon e acetate 1 % eye drops,suspe nsion 10-26 00:00: 00 04-01 23:59 :00 No [id number] 1 drops 3 TIMES DAILY 1 drops 3 TIMES DAILY (route: ophthalmic (eye)) Med Classific ation: Ophthalmi c Agents ropinirole 0.25 mg tablet 09-28 00:00: 00 04-01 23:59 :00 No [id number] Per instruc tions DIRECTED Per instructio ns DIRECTED (route: oral) Med Classific ation: Central Nervous System Agents venlafaxine ER 225 mg tablet,exte nded release 24 hr 10-26 00:00: 00 04-01 23:59 :00 No [id number] 1 tablet DAILY 1 tablet DAILY (route: oral) Med Classific ation: Central Nervous System Agents Vitamin D3 125 mcg (5,000 unit) tablet 09-28 00:00: 00 04-01 23:59 :00 No [id number] 1 tablet DAILY 1 tablet DAILY (route: oral) Med Classific ation: Electroly te Balance-N utritiona l Products clonazepam 0.5 mg tablet 2023-04 0-11 00:00: 00 04-01 23:59 :00 No [id number] Per instruc tions BEDTIME Per instructio ns BEDTIME (route: oral) Med Classific ation: Central Nervous System Agents acetaminoph en 325 mg tablet 04-30 00:00: 00 06-27 23:59 :00 No [id number] 2 tablet EVERY 4 HOURS 2 tablet EVERY 4 HOURS (route: oral) Med Classific ation: Analgesic , Anti-infl ammatory or Antipyret ic albuterol sulfate HFA 90 mcg/actuati on aerosol inhaler 04-30 00:00: 00 06-27 23:59 :00 No [id number] 2 puff EVERY 6 HOURS 2 puff EVERY 6 HOURS (route: inhalation ) Med Classific ation: Respirato ry Therapy Agents amantadine HCl 100 mg tablet 04-30 00:00: 00 06-27 23:59 :00 No [id number] 1 tablet DAILY 1 tablet DAILY (route: oral) Med Classific ation: Central Nervous System Agents amoxicillin 500 mg capsule 04-30 00:00: 00 06-27 23:59 :00 No [id number] 4 capsule DIRECTED 4 capsule DIRECTED (route: oral) Med Classific ation: Anti-Infe ctive Agents Breo Ellipta 100 mcg-25 mcg/dose powder for inhalation 04-30 00:00: 00 06-27 23:59 :00 No [id number] 1 inhalat ion DAILY 1 inhalation DAILY (route: inhalation ) Med Classific ation: Respirato ry Therapy Agents clonazepam 0.5 mg tablet 04-30 00:00: 00 06-27 23:59 :00 No [id number] 1 tablet BEDTIME 1 tablet BEDTIME (route: oral) Med Classific ation: Central Nervous System Agents docusate sodium 100 mg capsule 04-30 00:00: 00 06-27 23:59 :00 No [id number] 1 capsule 2 TIMES DAILY 1 capsule 2 TIMES DAILY (route: oral) Med Classific ation: Gastroint estinal Therapy Agents Eliquis 5 mg tablet 04-30 00:00: 00 06-27 23:59 :00 No [id number] 1 tablet 2 TIMES DAILY 1 tablet 2 TIMES DAILY (route: oral) Med Classific ation: Hematolog ical Agents finasteride 5 mg tablet 04-30 00:00: 00 06-27 23:59 :00 No [id number] 1 tablet DAILY 1 tablet DAILY (route: oral) Med Classific ation: Genitouri nary Therapy gabapentin 100 mg capsule 04-30 00:00: 00 06-27 23:59 :00 No [id number] 1 capsule DAILY 1 capsule DAILY (route: oral) Med Classific ation: Central Nervous System Agents gabapentin 300 mg capsule - 00:00: 00 06-27 23:59 :00 No [id number] 1 capsule BEDTIME 1 capsule BEDTIME (route: oral) Med Classific ation: Central Nervous System Agents mirtazapine 45 mg tablet - 00:00: 00 06-27 23:59 :00 No [id number] 1 tablet BEDTIME 1 tablet BEDTIME (route: oral) Med Classific ation: Central Nervous System Agents pantoprazol e 40 mg tablet,baltazar yed release - 00:00: 00 06-27 23:59 :00 No [id number] 1 tablet DAILY 1 tablet DAILY (route: oral) Med Classific ation: Gastroint estinal Therapy Agents ropinirole 0.25 mg tablet 04-30 00:00: 00 06-27 23:59 :00 No [id number] 1-4 tablet DIRECTED 1-4 tablet DIRECTED (route: oral) Med Classific ation: Central Nervous System Agents Rytary 36.25 mg-145 mg capsule,ext ended release 04-30 00:00: 00 06-27 23:59 :00 No [id number] 2 capsule 4 TIMES DAILY 2 capsule 4 TIMES DAILY (route: oral) Med Classific ation: Central Nervous System Agents venlafaxine ER 225 mg tablet,exte nded release 24 hr - 00:00: 00 06-27 23:59 :00 No [id number] 1 tablet BEDTIME 1 tablet BEDTIME (route: oral) Med Classific ation: Central Nervous System Agents amantadine HCl 100 mg capsule 3-04 00:00: 00 Yes [id number] 1 capsule DAILY 1 capsule DAILY (route: oral) Med Classific ation: Central Nervous System Agents clonazepam 0.5 mg tablet 3-04 00:00: 00 Yes [id number] 1 tablet BEDTIME 1 tablet BEDTIME (route: oral) Med Classific ation: Central Nervous System Agents Eliquis 5 mg tablet 3-04 00:00: 00 Yes [id number] 1 tablet 2 TIMES DAILY 1 tablet 2 TIMES DAILY (route: oral) Med Classific ation: Hematolog ical Agents finasteride 5 mg tablet 06-29 00:00: 00 Yes [id number] 1 tablet DAILY 1 tablet DAILY (route: oral) Med Classific ation: Genitouri nary Therapy gabapentin 100 mg capsule 06-29 00:00: 00 Yes [id number] 1 capsule DAILY 1 capsule DAILY (route: oral) Med Classific ation: Central Nervous System Agents gabapentin 300 mg capsule 06-29 00:00: 00 Yes [id number] 1 capsule BEDTIME 1 capsule BEDTIME (route: oral) Med Classific ation: Central Nervous System Agents mirtazapine 45 mg tablet 06-29 00:00: 00 Yes [id number] 1 tablet DAILY 1 tablet DAILY (route: oral) Med Classific ation: Central Nervous System Agents pantoprazol e 40 mg tablet,baltazar yed release 06-29 00:00: 00 10-21 23:59 :00 No [id number] 1 tablet DAILY 1 tablet DAILY (route: oral) Med Classific ation: Gastroint estinal Therapy Agents ropinirole 0.25 mg tablet 06-29 00:00: 00 Yes [id number] 2 tablet DAILY 2 tablet DAILY (route: oral) Med Classific ation: Central Nervous System Agents Rytary 36.25 mg-145 mg capsule,ext ended release 06-29 00:00: 00 Yes [id number] 3 capsule 4 TIMES DAILY 3 capsule 4 TIMES DAILY (route: oral) Med Classific ation: Central Nervous System Agents venlafaxine ER 225 mg tablet,exte nded release 24 hr 06-29 00:00: 00 Yes [id number] 1 tablet DAILY 1 tablet DAILY (route: oral) Med Classific ation: Central Nervous System Agents albuterol sulfate HFA 90 mcg/actuati on aerosol inhaler 06-29 00:00: 00 Yes [id number] 2 puff EVERY 6 HOURS 2 puff EVERY 6 HOURS (route: inhalation ) Med Classific ation: Respirato ry Therapy Agents Breo Ellipta 100 mcg-25 mcg/dose powder for inhalation 3-04 00:00: 00 Yes [id number] 1 inhalat ion DAILY 1 inhalation DAILY (route: inhalation ) Med Classific ation: Respirato ry Therapy Agents pantoprazol e 40 mg tablet,baltazar yed release 3- 00:00: 00 10-21 23:59 :00 No [id number] 1 tablet 2 TIMES DAILY 1 tablet 2 TIMES DAILY (route: oral) Med Classific ation: Gastroint estinal Therapy Agents fluconazole 200 mg tablet - 00:00: 00 Yes [id number] 200 mg DAILY 200 mg DAILY (route: oral) Alternate Route: SUBLINGUA L. Med Classific ation: Anti-Infe ctive Agents Carafate 100 mg/mL oral suspension 10-26 00:00: 00 Yes [id number] 10 mL 4 TIMES DAILY 10 mL 4 TIMES DAILY (route: oral) Med Classific ation: Gastroint estinal Therapy Agents Voquezna 20 mg tablet 10-26 00:00: 00 12-03 00:58 :03.3 47 No [id number] 1 tablet 2 TIMES DAILY 1 tablet 2 TIMES DAILY (route: oral) Med Classific ation: Gastroint estinal Therapy Agents Voquezna 20 mg tablet 10-21 00:00: 00 Yes [id number] 1 tablet 2 TIMES DAILY 1 tablet [...] BLOCKAGE/LEAKAGE, HEAVY SEDIMENT. 1 - 3 PRN [facility] VISITS FOR CATHETER CHANGE(S) AND/OR TROUBLESHOOTING. [code = SKILLED NURSE TO INSTRUCT PATIENT/CAREGIVER AND PERFORM CARE AND MANAGEMENT OF INDWELLING URINARY CATHETER. [place] CATHETER INSERTION WITH 18 FR CATHETER WITH 10 ML BALLOON VIA STERILE TECHNIQUE, CHANGE Q 4 WEEKS AND PRN FOR LEAKING OR MALFUNCTIONING CATHETER. IRRIGATE URINARY CATHETER WITH 30-60CC NORMAL SALINE PRN BLOCKAGE/LEAKAGE, HEAVY SEDIMENT. 1 - 3 PRN [facility] VISITS FOR CATHETER CHANGE(S) AND/OR TROUBLESHOOTING.] Future [...] MAINTAIN SITUATIONAL AWARENESS AND WILL NOTIFY CLINICAL ADZING AND BORING MACHINE HELPER AND PHYSICIAN/PROVIDER WITH ANY CHANGE IN CONDITION. [code = SKILLED NURSE TO PERFORM ENVIRONMENTAL SAFETY RISK ASSESSMENT AND FALL RISK ASSESSMENT AND PROVIDE INSTRUCTION TO IMPLEMENT ENVIRONMENTAL SAFETY AND FALL PREVENTION STRATEGIES THROUGHOUT THE CERTIFICATION PERIOD. SKILLED NURSE WILL MAINTAIN SITUATIONAL AWARENESS AND WILL NOTIFY CLINICAL ADZING AND BORING MACHINE HELPER AND PHYSICIAN/PROVIDER WITH ANY CHANGE IN [...] LASIX PATIENT LIVING SITUATION/CAREGIVER STATUS: [facility] SKILLED NEED: [...] CARE WILL BE ESTABLISHED THAT MEETS PATIENT'S [facility] NEEDS AND INCLUDES PATIENT GOAL FOR HOME [...] 2025-04-24 00:00:00 Outpatient RECERTIFIC ATION DEMETRI SLAUGHTER [facility] [id number] 6.25
--- OUTSIDE RECORDS SUMMARY | 2025-04-23 19:00 | XMS_ITS | Clinical Summary ---
Author Organization Unknown Care Team Providers Care Oxygen Equipment Technician Name Role Phone DARIAN DANGELO, ANYA Unavailable Unavaila aleisha CHRISTENSEN MOLD PULLER/ACID PUMP OPERATOR, RENAN Unavailable Unava susie SLAUGHTER RN, DEMETRI Unavailable Unavailable Payers Payer Name Policy Type Policy Number Effective Date Expira tion Date MEDICARE - [facility] - PD [id number] Problems Condition Name Condition Details Condition Category [...] OF URINARY DEVICE Active 04-28 00:00: 00 FDC (CURRENT) USE OF ANTICOAGULAN TS Active 04-28 [...] 01-11 00:00: 00 01-18 23:59 :00 No [id number] 1 tablet 2 TIMES DAILY 1 tablet 2 TIMES DAILY (route: oral) Med Classific ation: Anti-Infe ctive Agents lactulose 10 gram/15 mL oral solution 01-11 00:00: 00 04-01 23:59 :00 No [id number] 30 g DAILY 30 g DAILY (route: oral) Med Classific ation: Gastroint estinal Therapy Agents Rytary 36.25 mg-145 mg capsule,ext ended release 13 00:00: 00 04-01 23:59 :00 No [id number] 4 capsule 4 TIMES DAILY 4 capsule 4 TIMES DAILY (route: oral) Med Classific ation: Central Nervous System Agents Breo Ellipta 100 mcg-25 mcg/dose powder for inhalation - 00:00: 00 04-01 23:59 :00 No [id number] 1 inhalat ion ONCE DAILY 1 inhalation ONCE DAILY (route: inhalation ) Med Classific ation: Respirato ry Therapy Agents mirtazapine 45 mg tablet 12-12 00:00: 00 04-01 23:59 :00 No [id number] 1 tablet DAILY 1 tablet DAILY (route: oral) Med Classific ation: Central Nervous System Agents docusate sodium 100 mg capsule 16 00:00: 00 04-01 23:59 :00 No [id number] 1 capsule 2 TIMES DAILY 1 capsule 2 TIMES DAILY (route: oral) Med Classific ation: Gastroint estinal Therapy Agents Eliquis 5 mg tablet 10-26 00:00: 00 04-01 23:59 :00 No [id number] 1 tablet 2 TIMES DAILY 1 tablet 2 TIMES DAILY (route: oral) Med Classific ation: Hematolog ical Agents ferrous sulfate 325 mg (65 mg iron) tablet 10-26 00:00: 00 04-01 23:59 :00 No [id number] 1 tablet DAILY 1 tablet DAILY (route: oral) Med Classific ation: Electroly te Balance-N utritiona l Products finasteride 5 mg tablet 10-26 00:00: 00 04-01 23:59 :00 No [id number] 1 tablet DAILY 1 tablet DAILY (route: oral) Med Classific ation: Genitouri nary Therapy furosemide 40 mg tablet 10-26 00:00: 00 04-01 23:59 :00 No [id number] 1 tablet 2 TIMES DAILY 1 tablet 2 TIMES DAILY (route: oral) Med Classific ation: Cardiovas cular Therapy Agents magnesium 400 mg (as magnesium oxide) tablet 10-26 00:00: 00 04-01 23:59 :00 No [id number] 1 tablet DAILY 1 tablet DAILY (route: oral) Med Classific ation: Electroly te Balance-N utritiona l Products prednisolon e acetate 1 % eye drops,suspe nsion 10-26 00:00: 00 04-01 23:59 :00 No [id number] 1 drops 3 TIMES DAILY 1 drops 3 TIMES DAILY (route: ophthalmic (eye)) Med Classific ation: Ophthalmi c Agents ropinirole 0.25 mg tablet 09-28 00:00: 00 04-01 23:59 :00 No [id number] Per instruc tions DIRECTED Per instructio ns DIRECTED (route: oral) Med Classific ation: Central Nervous System Agents venlafaxine ER 225 mg tablet,exte nded release 24 hr 10-26 00:00: 00 04-01 23:59 :00 No [id number] 1 tablet DAILY 1 tablet DAILY (route: oral) Med Classific ation: Central Nervous System Agents Vitamin D3 125 mcg (5,000 unit) tablet 09-28 00:00: 00 04-01 23:59 :00 No [id number] 1 tablet DAILY 1 tablet DAILY (route: oral) Med Classific ation: Electroly te Balance-N utritiona l Products clonazepam 0.5 mg tablet 2023-04 0-11 00:00: 00 04-01 23:59 :00 No [id number] Per instruc tions BEDTIME Per instructio ns BEDTIME (route: oral) Med Classific ation: Central Nervous System Agents acetaminoph en 325 mg tablet 04-30 00:00: 00 06-27 23:59 :00 No [id number] 2 tablet EVERY 4 HOURS 2 tablet EVERY 4 HOURS (route: oral) Med Classific ation: Analgesic , Anti-infl ammatory or Antipyret ic albuterol sulfate HFA 90 mcg/actuati on aerosol inhaler 04-30 00:00: 00 06-27 23:59 :00 No [id number] 2 puff EVERY 6 HOURS 2 puff EVERY 6 HOURS (route: inhalation ) Med Classific ation: Respirato ry Therapy Agents amantadine HCl 100 mg tablet 04-30 00:00: 00 06-27 23:59 :00 No [id number] 1 tablet DAILY 1 tablet DAILY (route: oral) Med Classific ation: Central Nervous System Agents amoxicillin 500 mg capsule 04-30 00:00: 00 06-27 23:59 :00 No [id number] 4 capsule DIRECTED 4 capsule DIRECTED (route: oral) Med Classific ation: Anti-Infe ctive Agents Breo Ellipta 100 mcg-25 mcg/dose powder for inhalation 04-30 00:00: 00 06-27 23:59 :00 No [id number] 1 inhalat ion DAILY 1 inhalation DAILY (route: inhalation ) Med Classific ation: Respirato ry Therapy Agents clonazepam 0.5 mg tablet 04-30 00:00: 00 06-27 23:59 :00 No [id number] 1 tablet BEDTIME 1 tablet BEDTIME (route: oral) Med Classific ation: Central Nervous System Agents docusate sodium 100 mg capsule 04-30 00:00: 00 06-27 23:59 :00 No [id number] 1 capsule 2 TIMES DAILY 1 capsule 2 TIMES DAILY (route: oral) Med Classific ation: Gastroint estinal Therapy Agents Eliquis 5 mg tablet 04-30 00:00: 00 06-27 23:59 :00 No [id number] 1 tablet 2 TIMES DAILY 1 tablet 2 TIMES DAILY (route: oral) Med Classific ation: Hematolog ical Agents finasteride 5 mg tablet 04-30 00:00: 00 06-27 23:59 :00 No [id number] 1 tablet DAILY 1 tablet DAILY (route: oral) Med Classific ation: Genitouri nary Therapy gabapentin 100 mg capsule 04-30 00:00: 00 06-27 23:59 :00 No [id number] 1 capsule DAILY 1 capsule DAILY (route: oral) Med Classific ation: Central Nervous System Agents gabapentin 300 mg capsule - 00:00: 00 06-27 23:59 :00 No [id number] 1 capsule BEDTIME 1 capsule BEDTIME (route: oral) Med Classific ation: Central Nervous System Agents mirtazapine 45 mg tablet - 00:00: 00 06-27 23:59 :00 No [id number] 1 tablet BEDTIME 1 tablet BEDTIME (route: oral) Med Classific ation: Central Nervous System Agents pantoprazol e 40 mg tablet,baltazar yed release - 00:00: 00 06-27 23:59 :00 No [id number] 1 tablet DAILY 1 tablet DAILY (route: oral) Med Classific ation: Gastroint estinal Therapy Agents ropinirole 0.25 mg tablet 04-30 00:00: 00 06-27 23:59 :00 No [id number] 1-4 tablet DIRECTED 1-4 tablet DIRECTED (route: oral) Med Classific ation: Central Nervous System Agents Rytary 36.25 mg-145 mg capsule,ext ended release 04-30 00:00: 00 06-27 23:59 :00 No [id number] 2 capsule 4 TIMES DAILY 2 capsule 4 TIMES DAILY (route: oral) Med Classific ation: Central Nervous System Agents venlafaxine ER 225 mg tablet,exte nded release 24 hr - 00:00: 00 06-27 23:59 :00 No [id number] 1 tablet BEDTIME 1 tablet BEDTIME (route: oral) Med Classific ation: Central Nervous System Agents amantadine HCl 100 mg capsule 3-04 00:00: 00 Yes [id number] 1 capsule DAILY 1 capsule DAILY (route: oral) Med Classific ation: Central Nervous System Agents clonazepam 0.5 mg tablet 3-04 00:00: 00 Yes [id number] 1 tablet BEDTIME 1 tablet BEDTIME (route: oral) Med Classific ation: Central Nervous System Agents Eliquis 5 mg tablet 3-04 00:00: 00 Yes [id number] 1 tablet 2 TIMES DAILY 1 tablet 2 TIMES DAILY (route: oral) Med Classific ation: Hematolog ical Agents finasteride 5 mg tablet 06-29 00:00: 00 Yes [id number] 1 tablet DAILY 1 tablet DAILY (route: oral) Med Classific ation: Genitouri nary Therapy gabapentin 100 mg capsule 06-29 00:00: 00 Yes [id number] 1 capsule DAILY 1 capsule DAILY (route: oral) Med Classific ation: Central Nervous System Agents gabapentin 300 mg capsule 06-29 00:00: 00 Yes [id number] 1 capsule BEDTIME 1 capsule BEDTIME (route: oral) Med Classific ation: Central Nervous System Agents mirtazapine 45 mg tablet 06-29 00:00: 00 Yes [id number] 1 tablet DAILY 1 tablet DAILY (route: oral) Med Classific ation: Central Nervous System Agents pantoprazol e 40 mg tablet,baltazar yed release 06-29 00:00: 00 10-21 23:59 :00 No [id number] 1 tablet DAILY 1 tablet DAILY (route: oral) Med Classific ation: Gastroint estinal Therapy Agents ropinirole 0.25 mg tablet 06-29 00:00: 00 Yes [id number] 2 tablet DAILY 2 tablet DAILY (route: oral) Med Classific ation: Central Nervous System Agents Rytary 36.25 mg-145 mg capsule,ext ended release 06-29 00:00: 00 Yes [id number] 3 capsule 4 TIMES DAILY 3 capsule 4 TIMES DAILY (route: oral) Med Classific ation: Central Nervous System Agents venlafaxine ER 225 mg tablet,exte nded release 24 hr 06-29 00:00: 00 Yes [id number] 1 tablet DAILY 1 tablet DAILY (route: oral) Med Classific ation: Central Nervous System Agents albuterol sulfate HFA 90 mcg/actuati on aerosol inhaler 06-29 00:00: 00 Yes [id number] 2 puff EVERY 6 HOURS 2 puff EVERY 6 HOURS (route: inhalation ) Med Classific ation: Respirato ry Therapy Agents Breo Ellipta 100 mcg-25 mcg/dose powder for inhalation 3-04 00:00: 00 Yes [id number] 1 inhalat ion DAILY 1 inhalation DAILY (route: inhalation ) Med Classific ation: Respirato ry Therapy Agents pantoprazol e 40 mg tablet,baltazar yed release 3- 00:00: 00 10-21 23:59 :00 No [id number] 1 tablet 2 TIMES DAILY 1 tablet 2 TIMES DAILY (route: oral) Med Classific ation: Gastroint estinal Therapy Agents fluconazole 200 mg tablet - 00:00: 00 Yes [id number] 200 mg DAILY 200 mg DAILY (route: oral) Alternate Route: SUBLINGUA L. Med Classific ation: Anti-Infe ctive Agents Carafate 100 mg/mL oral suspension 10-26 00:00: 00 Yes [id number] 10 mL 4 TIMES DAILY 10 mL 4 TIMES DAILY (route: oral) Med Classific ation: Gastroint estinal Therapy Agents Voquezna 20 mg tablet 10-26 00:00: 00 12-03 00:58 :03.3 47 No [id number] 1 tablet 2 TIMES DAILY 1 tablet 2 TIMES DAILY (route: oral) Med Classific ation: Gastroint estinal Therapy Agents Voquezna 20 mg tablet 10-21 00:00: 00 Yes [id number] 1 tablet 2 TIMES DAILY 1 tablet [...] BLOCKAGE/LEAKAGE, HEAVY SEDIMENT. 1 - 3 PRN INTERMEDIATE VISITS FOR CATHETER CHANGE(S) AND/OR TROUBLESHOOTING. [code = SKILLED NURSE TO INSTRUCT PATIENT/CAREGIVER AND PERFORM CARE AND MANAGEMENT OF INDWELLING URINARY CATHETER. [place] CATHETER INSERTION WITH 18 FR CATHETER WITH 10 ML BALLOON VIA STERILE TECHNIQUE, CHANGE Q 4 WEEKS AND PRN FOR LEAKING OR MALFUNCTIONING CATHETER. IRRIGATE URINARY CATHETER WITH 30-60CC NORMAL SALINE PRN BLOCKAGE/LEAKAGE, HEAVY SEDIMENT. 1 - 3 PRN INTERMEDIATE VISITS FOR CATHETER CHANGE(S) AND/OR TROUBLESHOOTING.] Future [...] MAINTAIN SITUATIONAL AWARENESS AND WILL NOTIFY CLINICAL RELIEF PHARMACIST AND PHYSICIAN/PROVIDER WITH ANY CHANGE IN CONDITION. [code = SKILLED NURSE TO PERFORM ENVIRONMENTAL SAFETY RISK ASSESSMENT AND FALL RISK ASSESSMENT AND PROVIDE INSTRUCTION TO IMPLEMENT ENVIRONMENTAL SAFETY AND FALL PREVENTION STRATEGIES THROUGHOUT THE CERTIFICATION PERIOD. SKILLED NURSE WILL MAINTAIN SITUATIONAL AWARENESS AND WILL NOTIFY CLINICAL RELIEF PHARMACIST AND PHYSICIAN/PROVIDER WITH ANY CHANGE IN CONDITION.] [...] [facility]IX PATIENT LIVING SITUATION/CAREGIVER STATUS: [facility] SUM[facility] SKILLED NEED: [...] CARE WILL BE ESTABLISHED THAT MEETS PATIENT'S INTERMEDIATE NEEDS AND INCLUDES PATIENT GOAL FOR HOME [...] End Date/Time Encounter Type Admission Type Attending [facility] Care Department Encounter ID Discharge Date Discharge Status Discharge Condition Discharge Reason Percent Goals Met 2025-02-24 00:00:00 2025-04-24 00:00:00 Outpatient RECERTIFIC ATION DEMETRI SLAUGHTER [facility] [id number] 6.25
--- OUTSIDE RECORDS SUMMARY | 2025-04-23 19:00 | XMS_ITS | Clinical Summary ---
Author Organization Unknown Care Team Providers Care Mount Loader Name Role Phone DARIAN DANGELO, ANYA Unavailable Unavaila aleisha CHRISTENSEN TABLE TENDER SLUDGE/SEARCH ENGINE MARKETING STRATEGIST, RENAN Unavailable Unava susie SLAUGHTER RN, DEMETRI Unavailable Unavailable Payers Payer Name Policy Type Policy Number Effective Date Expira tion Date MEDICARE - [facility] - PD [id number] Problems Condition Name Condition Details Condition Category [...] OF URINARY DEVICE Active 04-28 00:00: 00 INTERMEDIATE (CURRENT) USE OF ANTICOAGULAN TS Active 04-28 [...] 01-11 00:00: 00 01-18 23:59 :00 No [id number] 1 tablet 2 TIMES DAILY 1 tablet 2 TIMES DAILY (route: oral) Med Classific ation: Anti-Infe ctive Agents lactulose 10 gram/15 mL oral solution 01-11 00:00: 00 04-01 23:59 :00 No [id number] 30 g DAILY 30 g DAILY (route: oral) Med Classific ation: Gastroint estinal Therapy Agents Rytary 36.25 mg-145 mg capsule,ext ended release 13 00:00: 00 04-01 23:59 :00 No [id number] 4 capsule 4 TIMES DAILY 4 capsule 4 TIMES DAILY (route: oral) Med Classific ation: Central Nervous System Agents Breo Ellipta 100 mcg-25 mcg/dose powder for inhalation - 00:00: 00 04-01 23:59 :00 No [id number] 1 inhalat ion ONCE DAILY 1 inhalation ONCE DAILY (route: inhalation ) Med Classific ation: Respirato ry Therapy Agents mirtazapine 45 mg tablet 12-12 00:00: 00 04-01 23:59 :00 No [id number] 1 tablet DAILY 1 tablet DAILY (route: oral) Med Classific ation: Central Nervous System Agents docusate sodium 100 mg capsule 16 00:00: 00 04-01 23:59 :00 No [id number] 1 capsule 2 TIMES DAILY 1 capsule 2 TIMES DAILY (route: oral) Med Classific ation: Gastroint estinal Therapy Agents Eliquis 5 mg tablet 10-26 00:00: 00 04-01 23:59 :00 No [id number] 1 tablet 2 TIMES DAILY 1 tablet 2 TIMES DAILY (route: oral) Med Classific ation: Hematolog ical Agents ferrous sulfate 325 mg (65 mg iron) tablet 10-26 00:00: 00 04-01 23:59 :00 No [id number] 1 tablet DAILY 1 tablet DAILY (route: oral) Med Classific ation: Electroly te Balance-N utritiona l Products finasteride 5 mg tablet 10-26 00:00: 00 04-01 23:59 :00 No [id number] 1 tablet DAILY 1 tablet DAILY (route: oral) Med Classific ation: Genitouri nary Therapy furosemide 40 mg tablet 10-26 00:00: 00 04-01 23:59 :00 No [id number] 1 tablet 2 TIMES DAILY 1 tablet 2 TIMES DAILY (route: oral) Med Classific ation: Cardiovas cular Therapy Agents magnesium 400 mg (as magnesium oxide) tablet 10-26 00:00: 00 04-01 23:59 :00 No [id number] 1 tablet DAILY 1 tablet DAILY (route: oral) Med Classific ation: Electroly te Balance-N utritiona l Products prednisolon e acetate 1 % eye drops,suspe nsion 10-26 00:00: 00 04-01 23:59 :00 No [id number] 1 drops 3 TIMES DAILY 1 drops 3 TIMES DAILY (route: ophthalmic (eye)) Med Classific ation: Ophthalmi c Agents ropinirole 0.25 mg tablet 09-28 00:00: 00 04-01 23:59 :00 No [id number] Per instruc tions DIRECTED Per instructio ns DIRECTED (route: oral) Med Classific ation: Central Nervous System Agents venlafaxine ER 225 mg tablet,exte nded release 24 hr 10-26 00:00: 00 04-01 23:59 :00 No [id number] 1 tablet DAILY 1 tablet DAILY (route: oral) Med Classific ation: Central Nervous System Agents Vitamin D3 125 mcg (5,000 unit) tablet 09-28 00:00: 00 04-01 23:59 :00 No [id number] 1 tablet DAILY 1 tablet DAILY (route: oral) Med Classific ation: Electroly te Balance-N utritiona l Products clonazepam 0.5 mg tablet 2023-04 0-11 00:00: 00 04-01 23:59 :00 No [id number] Per instruc tions BEDTIME Per instructio ns BEDTIME (route: oral) Med Classific ation: Central Nervous System Agents acetaminoph en 325 mg tablet 04-30 00:00: 00 06-27 23:59 :00 No [id number] 2 tablet EVERY 4 HOURS 2 tablet EVERY 4 HOURS (route: oral) Med Classific ation: Analgesic , Anti-infl ammatory or Antipyret ic albuterol sulfate HFA 90 mcg/actuati on aerosol inhaler 04-30 00:00: 00 06-27 23:59 :00 No [id number] 2 puff EVERY 6 HOURS 2 puff EVERY 6 HOURS (route: inhalation ) Med Classific ation: Respirato ry Therapy Agents amantadine HCl 100 mg tablet 04-30 00:00: 00 06-27 23:59 :00 No [id number] 1 tablet DAILY 1 tablet DAILY (route: oral) Med Classific ation: Central Nervous System Agents amoxicillin 500 mg capsule 04-30 00:00: 00 06-27 23:59 :00 No [id number] 4 capsule DIRECTED 4 capsule DIRECTED (route: oral) Med Classific ation: Anti-Infe ctive Agents Breo Ellipta 100 mcg-25 mcg/dose powder for inhalation 04-30 00:00: 00 06-27 23:59 :00 No [id number] 1 inhalat ion DAILY 1 inhalation DAILY (route: inhalation ) Med Classific ation: Respirato ry Therapy Agents clonazepam 0.5 mg tablet 04-30 00:00: 00 06-27 23:59 :00 No [id number] 1 tablet BEDTIME 1 tablet BEDTIME (route: oral) Med Classific ation: Central Nervous System Agents docusate sodium 100 mg capsule 04-30 00:00: 00 06-27 23:59 :00 No [id number] 1 capsule 2 TIMES DAILY 1 capsule 2 TIMES DAILY (route: oral) Med Classific ation: Gastroint estinal Therapy Agents Eliquis 5 mg tablet 04-30 00:00: 00 06-27 23:59 :00 No [id number] 1 tablet 2 TIMES DAILY 1 tablet 2 TIMES DAILY (route: oral) Med Classific ation: Hematolog ical Agents finasteride 5 mg tablet 04-30 00:00: 00 06-27 23:59 :00 No [id number] 1 tablet DAILY 1 tablet DAILY (route: oral) Med Classific ation: Genitouri nary Therapy gabapentin 100 mg capsule 04-30 00:00: 00 06-27 23:59 :00 No [id number] 1 capsule DAILY 1 capsule DAILY (route: oral) Med Classific ation: Central Nervous System Agents gabapentin 300 mg capsule - 00:00: 00 06-27 23:59 :00 No [id number] 1 capsule BEDTIME 1 capsule BEDTIME (route: oral) Med Classific ation: Central Nervous System Agents mirtazapine 45 mg tablet - 00:00: 00 06-27 23:59 :00 No [id number] 1 tablet BEDTIME 1 tablet BEDTIME (route: oral) Med Classific ation: Central Nervous System Agents pantoprazol e 40 mg tablet,baltazar yed release - 00:00: 00 06-27 23:59 :00 No [id number] 1 tablet DAILY 1 tablet DAILY (route: oral) Med Classific ation: Gastroint estinal Therapy Agents ropinirole 0.25 mg tablet 04-30 00:00: 00 06-27 23:59 :00 No [id number] 1-4 tablet DIRECTED 1-4 tablet DIRECTED (route: oral) Med Classific ation: Central Nervous System Agents Rytary 36.25 mg-145 mg capsule,ext ended release 04-30 00:00: 00 06-27 23:59 :00 No [id number] 2 capsule 4 TIMES DAILY 2 capsule 4 TIMES DAILY (route: oral) Med Classific ation: Central Nervous System Agents venlafaxine ER 225 mg tablet,exte nded release 24 hr - 00:00: 00 06-27 23:59 :00 No [id number] 1 tablet BEDTIME 1 tablet BEDTIME (route: oral) Med Classific ation: Central Nervous System Agents amantadine HCl 100 mg capsule 3-04 00:00: 00 Yes [id number] 1 capsule DAILY 1 capsule DAILY (route: oral) Med Classific ation: Central Nervous System Agents clonazepam 0.5 mg tablet 3-04 00:00: 00 Yes [id number] 1 tablet BEDTIME 1 tablet BEDTIME (route: oral) Med Classific ation: Central Nervous System Agents Eliquis 5 mg tablet 3-04 00:00: 00 Yes [id number] 1 tablet 2 TIMES DAILY 1 tablet 2 TIMES DAILY (route: oral) Med Classific ation: Hematolog ical Agents finasteride 5 mg tablet 06-29 00:00: 00 Yes [id number] 1 tablet DAILY 1 tablet DAILY (route: oral) Med Classific ation: Genitouri nary Therapy gabapentin 100 mg capsule 06-29 00:00: 00 Yes [id number] 1 capsule DAILY 1 capsule DAILY (route: oral) Med Classific ation: Central Nervous System Agents gabapentin 300 mg capsule 06-29 00:00: 00 Yes [id number] 1 capsule BEDTIME 1 capsule BEDTIME (route: oral) Med Classific ation: Central Nervous System Agents mirtazapine 45 mg tablet 06-29 00:00: 00 Yes [id number] 1 tablet DAILY 1 tablet DAILY (route: oral) Med Classific ation: Central Nervous System Agents pantoprazol e 40 mg tablet,baltazar yed release 06-29 00:00: 00 10-21 23:59 :00 No [id number] 1 tablet DAILY 1 tablet DAILY (route: oral) Med Classific ation: Gastroint estinal Therapy Agents ropinirole 0.25 mg tablet 06-29 00:00: 00 Yes [id number] 2 tablet DAILY 2 tablet DAILY (route: oral) Med Classific ation: Central Nervous System Agents Rytary 36.25 mg-145 mg capsule,ext ended release 06-29 00:00: 00 Yes [id number] 3 capsule 4 TIMES DAILY 3 capsule 4 TIMES DAILY (route: oral) Med Classific ation: Central Nervous System Agents venlafaxine ER 225 mg tablet,exte nded release 24 hr 06-29 00:00: 00 Yes [id number] 1 tablet DAILY 1 tablet DAILY (route: oral) Med Classific ation: Central Nervous System Agents albuterol sulfate HFA 90 mcg/actuati on aerosol inhaler 06-29 00:00: 00 Yes [id number] 2 puff EVERY 6 HOURS 2 puff EVERY 6 HOURS (route: inhalation ) Med Classific ation: Respirato ry Therapy Agents Breo Ellipta 100 mcg-25 mcg/dose powder for inhalation 3-04 00:00: 00 Yes [id number] 1 inhalat ion DAILY 1 inhalation DAILY (route: inhalation ) Med Classific ation: Respirato ry Therapy Agents pantoprazol e 40 mg tablet,baltazar yed release 3- 00:00: 00 10-21 23:59 :00 No [id number] 1 tablet 2 TIMES DAILY 1 tablet 2 TIMES DAILY (route: oral) Med Classific ation: Gastroint estinal Therapy Agents fluconazole 200 mg tablet - 00:00: 00 Yes [id number] 200 mg DAILY 200 mg DAILY (route: oral) Alternate Route: SUBLINGUA L. Med Classific ation: Anti-Infe ctive Agents Carafate 100 mg/mL oral suspension 10-26 00:00: 00 Yes [id number] 10 mL 4 TIMES DAILY 10 mL 4 TIMES DAILY (route: oral) Med Classific ation: Gastroint estinal Therapy Agents Voquezna 20 mg tablet 10-26 00:00: 00 12-03 00:58 :03.3 47 No [id number] 1 tablet 2 TIMES DAILY 1 tablet 2 TIMES DAILY (route: oral) Med Classific ation: Gastroint estinal Therapy Agents Voquezna 20 mg tablet 10-21 00:00: 00 Yes [id number] 1 tablet 2 TIMES DAILY 1 tablet [...] MAINTAIN SITUATIONAL AWARENESS AND WILL NOTIFY CLINICAL CADENCE SPECIALISTS AND PHYSICIAN/PROVIDER WITH ANY CHANGE IN CONDITION. [code = SKILLED NURSE TO PERFORM ENVIRONMENTAL SAFETY RISK ASSESSMENT AND FALL RISK ASSESSMENT AND PROVIDE INSTRUCTION TO IMPLEMENT ENVIRONMENTAL SAFETY AND FALL PREVENTION STRATEGIES THROUGHOUT THE CERTIFICATION PERIOD. SKILLED NURSE WILL MAINTAIN SITUATIONAL AWARENESS AND WILL NOTIFY CLINICAL CADENCE SPECIALISTS AND PHYSICIAN/PROVIDER WITH ANY CHANGE IN CONDITION.] [...] LASIX PATIENT LIVING SITUATION/CAREGIVER STATUS: [facility] SUMMAR[facility] SKILLED NEED: [...] End Date/Time Encounter Type Admission Type Attending [facility] Care Department Encounter ID Discharge Date Discharge Status Discharge Condition Discharge Reason Percent Goals Met 2025-02-24 00:00:00 2025-04-24 00:00:00 Outpatient RECERTIFIC ATION DEMETRI SLAUGHTER [facility] [id number] 6.25
--- OUTSIDE RECORDS SUMMARY | 2025-04-23 19:00 | XMS_ITS | Clinical Summary ---
Author Organization Unknown Care Team Providers Care Battery Vent Plug Inserter Name Role Phone DARIAN DANGELO, ANYA Unavailable Unavaila aleisha CHRISTENSEN [employer] MINER BLASTING/CLAIMS ADJUSTER, RENAN Unavailable Unava susie SLAUGHTER RN, DEMETRI Unavailable Unavailable Payers Payer Name Policy Type Policy Number Effective Date Expira tion Date MEDICARE - [facility] - PD [id number] Problems Condition Name Condition Details Condition Category [...] OF URINARY DEVICE Active 04-28 00:00: 00 PRISON (CURRENT) USE OF ANTICOAGULAN TS Active 04-28 [...] 01-11 00:00: 00 01-18 23:59 :00 No [id number] 1 tablet 2 TIMES DAILY 1 tablet 2 TIMES DAILY (route: oral) Med Classific ation: Anti-Infe ctive Agents lactulose 10 gram/15 mL oral solution 01-11 00:00: 00 04-01 23:59 :00 No [id number] 30 g DAILY 30 g DAILY (route: oral) Med Classific ation: Gastroint estinal Therapy Agents Rytary 36.25 mg-145 mg capsule,ext ended release 13 00:00: 00 04-01 23:59 :00 No [id number] 4 capsule 4 TIMES DAILY 4 capsule 4 TIMES DAILY (route: oral) Med Classific ation: Central Nervous System Agents Breo Ellipta 100 mcg-25 mcg/dose powder for inhalation - 00:00: 00 04-01 23:59 :00 No [id number] 1 inhalat ion ONCE DAILY 1 inhalation ONCE DAILY (route: inhalation ) Med Classific ation: Respirato ry Therapy Agents mirtazapine 45 mg tablet 12-12 00:00: 00 04-01 23:59 :00 No [id number] 1 tablet DAILY 1 tablet DAILY (route: oral) Med Classific ation: Central Nervous System Agents docusate sodium 100 mg capsule 16 00:00: 00 04-01 23:59 :00 No [id number] 1 capsule 2 TIMES DAILY 1 capsule 2 TIMES DAILY (route: oral) Med Classific ation: Gastroint estinal Therapy Agents Eliquis 5 mg tablet 10-26 00:00: 00 04-01 23:59 :00 No [id number] 1 tablet 2 TIMES DAILY 1 tablet 2 TIMES DAILY (route: oral) Med Classific ation: Hematolog ical Agents ferrous sulfate 325 mg (65 mg iron) tablet 10-26 00:00: 00 04-01 23:59 :00 No [id number] 1 tablet DAILY 1 tablet DAILY (route: oral) Med Classific ation: Electroly te Balance-N utritiona l Products finasteride 5 mg tablet 10-26 00:00: 00 04-01 23:59 :00 No [id number] 1 tablet DAILY 1 tablet DAILY (route: oral) Med Classific ation: Genitouri nary Therapy furosemide 40 mg tablet 10-26 00:00: 00 04-01 23:59 :00 No [id number] 1 tablet 2 TIMES DAILY 1 tablet 2 TIMES DAILY (route: oral) Med Classific ation: Cardiovas cular Therapy Agents magnesium 400 mg (as magnesium oxide) tablet 10-26 00:00: 00 04-01 23:59 :00 No [id number] 1 tablet DAILY 1 tablet DAILY (route: oral) Med Classific ation: Electroly te Balance-N utritiona l Products prednisolon e acetate 1 % eye drops,suspe nsion 10-26 00:00: 00 04-01 23:59 :00 No [id number] 1 drops 3 TIMES DAILY 1 drops 3 TIMES DAILY (route: ophthalmic (eye)) Med Classific ation: Ophthalmi c Agents ropinirole 0.25 mg tablet 09-28 00:00: 00 04-01 23:59 :00 No [id number] Per instruc tions DIRECTED Per instructio ns DIRECTED (route: oral) Med Classific ation: Central Nervous System Agents venlafaxine ER 225 mg tablet,exte nded release 24 hr 10-26 00:00: 00 04-01 23:59 :00 No [id number] 1 tablet DAILY 1 tablet DAILY (route: oral) Med Classific ation: Central Nervous System Agents Vitamin D3 125 mcg (5,000 unit) tablet 09-28 00:00: 00 04-01 23:59 :00 No [id number] 1 tablet DAILY 1 tablet DAILY (route: oral) Med Classific ation: Electroly te Balance-N utritiona l Products clonazepam 0.5 mg tablet 2023-04 0-11 00:00: 00 04-01 23:59 :00 No [id number] Per instruc tions BEDTIME Per instructio ns BEDTIME (route: oral) Med Classific ation: Central Nervous System Agents acetaminoph en 325 mg tablet 04-30 00:00: 00 06-27 23:59 :00 No [id number] 2 tablet EVERY 4 HOURS 2 tablet EVERY 4 HOURS (route: oral) Med Classific ation: Analgesic , Anti-infl ammatory or Antipyret ic albuterol sulfate HFA 90 mcg/actuati on aerosol inhaler 04-30 00:00: 00 06-27 23:59 :00 No [id number] 2 puff EVERY 6 HOURS 2 puff EVERY 6 HOURS (route: inhalation ) Med Classific ation: Respirato ry Therapy Agents amantadine HCl 100 mg tablet 04-30 00:00: 00 06-27 23:59 :00 No [id number] 1 tablet DAILY 1 tablet DAILY (route: oral) Med Classific ation: Central Nervous System Agents amoxicillin 500 mg capsule 04-30 00:00: 00 06-27 23:59 :00 No [id number] 4 capsule DIRECTED 4 capsule DIRECTED (route: oral) Med Classific ation: Anti-Infe ctive Agents Breo Ellipta 100 mcg-25 mcg/dose powder for inhalation 04-30 00:00: 00 06-27 23:59 :00 No [id number] 1 inhalat ion DAILY 1 inhalation DAILY (route: inhalation ) Med Classific ation: Respirato ry Therapy Agents clonazepam 0.5 mg tablet 04-30 00:00: 00 06-27 23:59 :00 No [id number] 1 tablet BEDTIME 1 tablet BEDTIME (route: oral) Med Classific ation: Central Nervous System Agents docusate sodium 100 mg capsule 04-30 00:00: 00 06-27 23:59 :00 No [id number] 1 capsule 2 TIMES DAILY 1 capsule 2 TIMES DAILY (route: oral) Med Classific ation: Gastroint estinal Therapy Agents Eliquis 5 mg tablet 04-30 00:00: 00 06-27 23:59 :00 No [id number] 1 tablet 2 TIMES DAILY 1 tablet 2 TIMES DAILY (route: oral) Med Classific ation: Hematolog ical Agents finasteride 5 mg tablet 04-30 00:00: 00 06-27 23:59 :00 No [id number] 1 tablet DAILY 1 tablet DAILY (route: oral) Med Classific ation: Genitouri nary Therapy gabapentin 100 mg capsule 04-30 00:00: 00 06-27 23:59 :00 No [id number] 1 capsule DAILY 1 capsule DAILY (route: oral) Med Classific ation: Central Nervous System Agents gabapentin 300 mg capsule - 00:00: 00 06-27 23:59 :00 No [id number] 1 capsule BEDTIME 1 capsule BEDTIME (route: oral) Med Classific ation: Central Nervous System Agents mirtazapine 45 mg tablet - 00:00: 00 06-27 23:59 :00 No [id number] 1 tablet BEDTIME 1 tablet BEDTIME (route: oral) Med Classific ation: Central Nervous System Agents pantoprazol e 40 mg tablet,baltazar yed release - 00:00: 00 06-27 23:59 :00 No [id number] 1 tablet DAILY 1 tablet DAILY (route: oral) Med Classific ation: Gastroint estinal Therapy Agents ropinirole 0.25 mg tablet 04-30 00:00: 00 06-27 23:59 :00 No [id number] 1-4 tablet DIRECTED 1-4 tablet DIRECTED (route: oral) Med Classific ation: Central Nervous System Agents Rytary 36.25 mg-145 mg capsule,ext ended release 04-30 00:00: 00 06-27 23:59 :00 No [id number] 2 capsule 4 TIMES DAILY 2 capsule 4 TIMES DAILY (route: oral) Med Classific ation: Central Nervous System Agents venlafaxine ER 225 mg tablet,exte nded release 24 hr - 00:00: 00 06-27 23:59 :00 No [id number] 1 tablet BEDTIME 1 tablet BEDTIME (route: oral) Med Classific ation: Central Nervous System Agents amantadine HCl 100 mg capsule 3-04 00:00: 00 Yes [id number] 1 capsule DAILY 1 capsule DAILY (route: oral) Med Classific ation: Central Nervous System Agents clonazepam 0.5 mg tablet 3-04 00:00: 00 Yes [id number] 1 tablet BEDTIME 1 tablet BEDTIME (route: oral) Med Classific ation: Central Nervous System Agents Eliquis 5 mg tablet 3-04 00:00: 00 Yes [id number] 1 tablet 2 TIMES DAILY 1 tablet 2 TIMES DAILY (route: oral) Med Classific ation: Hematolog ical Agents finasteride 5 mg tablet 06-29 00:00: 00 Yes [id number] 1 tablet DAILY 1 tablet DAILY (route: oral) Med Classific ation: Genitouri nary Therapy gabapentin 100 mg capsule 06-29 00:00: 00 Yes [id number] 1 capsule DAILY 1 capsule DAILY (route: oral) Med Classific ation: Central Nervous System Agents gabapentin 300 mg capsule 06-29 00:00: 00 Yes [id number] 1 capsule BEDTIME 1 capsule BEDTIME (route: oral) Med Classific ation: Central Nervous System Agents mirtazapine 45 mg tablet 06-29 00:00: 00 Yes [id number] 1 tablet DAILY 1 tablet DAILY (route: oral) Med Classific ation: Central Nervous System Agents pantoprazol e 40 mg tablet,baltazar yed release 06-29 00:00: 00 10-21 23:59 :00 No [id number] 1 tablet DAILY 1 tablet DAILY (route: oral) Med Classific ation: Gastroint estinal Therapy Agents ropinirole 0.25 mg tablet 06-29 00:00: 00 Yes [id number] 2 tablet DAILY 2 tablet DAILY (route: oral) Med Classific ation: Central Nervous System Agents Rytary 36.25 mg-145 mg capsule,ext ended release 06-29 00:00: 00 Yes [id number] 3 capsule 4 TIMES DAILY 3 capsule 4 TIMES DAILY (route: oral) Med Classific ation: Central Nervous System Agents venlafaxine ER 225 mg tablet,exte nded release 24 hr 06-29 00:00: 00 Yes [id number] 1 tablet DAILY 1 tablet DAILY (route: oral) Med Classific ation: Central Nervous System Agents albuterol sulfate HFA 90 mcg/actuati on aerosol inhaler 06-29 00:00: 00 Yes [id number] 2 puff EVERY 6 HOURS 2 puff EVERY 6 HOURS (route: inhalation ) Med Classific ation: Respirato ry Therapy Agents Breo Ellipta 100 mcg-25 mcg/dose powder for inhalation 3-04 00:00: 00 Yes [id number] 1 inhalat ion DAILY 1 inhalation DAILY (route: inhalation ) Med Classific ation: Respirato ry Therapy Agents pantoprazol e 40 mg tablet,baltazar yed release 3- 00:00: 00 10-21 23:59 :00 No [id number] 1 tablet 2 TIMES DAILY 1 tablet 2 TIMES DAILY (route: oral) Med Classific ation: Gastroint estinal Therapy Agents fluconazole 200 mg tablet - 00:00: 00 Yes [id number] 200 mg DAILY 200 mg DAILY (route: oral) Alternate Route: SUBLINGUA L. Med Classific ation: Anti-Infe ctive Agents Carafate 100 mg/mL oral suspension 10-26 00:00: 00 Yes [id number] 10 mL 4 TIMES DAILY 10 mL 4 TIMES DAILY (route: oral) Med Classific ation: Gastroint estinal Therapy Agents Voquezna 20 mg tablet 10-26 00:00: 00 12-03 00:58 :03.3 47 No [id number] 1 tablet 2 TIMES DAILY 1 tablet 2 TIMES DAILY (route: oral) Med Classific ation: Gastroint estinal Therapy Agents Voquezna 20 mg tablet 10-21 00:00: 00 Yes [id number] 1 tablet 2 TIMES DAILY 1 tablet [...] BLOCKAGE/LEAKAGE, HEAVY SEDIMENT. 1 - 3 PRN PRISON VISITS FOR CATHETER CHANGE(S) AND/OR TROUBLESHOOTING. [code = SKILLED NURSE TO INSTRUCT PATIENT/CAREGIVER AND PERFORM CARE AND MANAGEMENT OF INDWELLING URINARY CATHETER. [place] CATHETER INSERTION WITH 18 FR CATHETER WITH 10 ML BALLOON VIA STERILE TECHNIQUE, CHANGE Q 4 WEEKS AND PRN FOR LEAKING OR MALFUNCTIONING CATHETER. IRRIGATE URINARY CATHETER WITH 30-60CC NORMAL SALINE PRN BLOCKAGE/LEAKAGE, HEAVY SEDIMENT. 1 - 3 PRN PRISON VISITS FOR CATHETER CHANGE(S) AND/OR TROUBLESHOOTING.] Future [...] MAINTAIN SITUATIONAL AWARENESS AND WILL NOTIFY CLINICAL RETORT PRE COOKER AND PHYSICIAN/PROVIDER WITH ANY CHANGE IN CONDITION. [code = SKILLED NURSE TO PERFORM ENVIRONMENTAL SAFETY RISK ASSESSMENT AND FALL RISK ASSESSMENT AND PROVIDE INSTRUCTION TO IMPLEMENT ENVIRONMENTAL SAFETY AND FALL PREVENTION STRATEGIES THROUGHOUT THE CERTIFICATION PERIOD. SKILLED NURSE WILL MAINTAIN SITUATIONAL AWARENESS AND WILL NOTIFY CLINICAL RETORT PRE COOKER AND PHYSICIAN/PROVIDER WITH ANY CHANGE IN CONDITION.] [...] LASIX PATIENT LIVING SITUATION/CAREGIVER STATUS: [facility] SUMMAR[facility] SKILLED NEED: DISEASE [...] CARE WILL BE ESTABLISHED THAT MEETS PATIENT'S PRISON NEEDS AND INCLUDES PATIENT GOAL FOR HOME [...] End Date/Time Encounter Type Admission Type Attending [facility] Care Department Encounter ID Discharge Date Discharge Status Discharge Condition Discharge Reason Percent Goals Met 2025-02-24 00:00:00 2025-04-24 00:00:00 Outpatient RECERTIFIC ATION DEMETRI SLAUGHTER [facility] [id number] 6.25
--- OUTSIDE RECORDS SUMMARY | 2025-04-23 19:00 | XMS_ITS | Clinical Summary ---
Author Organization Unknown Care Team Providers Care Airplane Rental Clerk Name Role Phone DARIAN DANGELO, ANYA Unavailable Unavaila aleisha CHRISTENSEN DIRECTOR OF PLANNING/SOFTWARE DEVELOPMENT ANALYST, RENAN Unavailable Unava susie SLAUGHTER RN, DEMETRI Unavailable Unavailable Payers Payer Name Policy Type Policy Number Effective Date Expira tion Date MEDICARE - [facility] - PD [id number] Problems Condition Name Condition Details Condition Category [...] 01-11 00:00: 00 01-18 23:59 :00 No [id number] 1 tablet 2 TIMES DAILY 1 tablet 2 TIMES DAILY (route: oral) Med Classific ation: Anti-Infe ctive Agents lactulose 10 gram/15 mL oral solution 01-11 00:00: 00 04-01 23:59 :00 No [id number] 30 g DAILY 30 g DAILY (route: oral) Med Classific ation: Gastroint estinal Therapy Agents Rytary 36.25 mg-145 mg capsule,ext ended release 13 00:00: 00 04-01 23:59 :00 No [id number] 4 capsule 4 TIMES DAILY 4 capsule 4 TIMES DAILY (route: oral) Med Classific ation: Central Nervous System Agents Breo Ellipta 100 mcg-25 mcg/dose powder for inhalation - 00:00: 00 04-01 23:59 :00 No [id number] 1 inhalat ion ONCE DAILY 1 inhalation ONCE DAILY (route: inhalation ) Med Classific ation: Respirato ry Therapy Agents mirtazapine 45 mg tablet 12-12 00:00: 00 04-01 23:59 :00 No [id number] 1 tablet DAILY 1 tablet DAILY (route: oral) Med Classific ation: Central Nervous System Agents docusate sodium 100 mg capsule 16 00:00: 00 04-01 23:59 :00 No [id number] 1 capsule 2 TIMES DAILY 1 capsule 2 TIMES DAILY (route: oral) Med Classific ation: Gastroint estinal Therapy Agents Eliquis 5 mg tablet 10-26 00:00: 00 04-01 23:59 :00 No [id number] 1 tablet 2 TIMES DAILY 1 tablet 2 TIMES DAILY (route: oral) Med Classific ation: Hematolog ical Agents ferrous sulfate 325 mg (65 mg iron) tablet 10-26 00:00: 00 04-01 23:59 :00 No [id number] 1 tablet DAILY 1 tablet DAILY (route: oral) Med Classific ation: Electroly te Balance-N utritiona l Products finasteride 5 mg tablet 10-26 00:00: 00 04-01 23:59 :00 No [id number] 1 tablet DAILY 1 tablet DAILY (route: oral) Med Classific ation: Genitouri nary Therapy furosemide 40 mg tablet 10-26 00:00: 00 04-01 23:59 :00 No [id number] 1 tablet 2 TIMES DAILY 1 tablet 2 TIMES DAILY (route: oral) Med Classific ation: Cardiovas cular Therapy Agents magnesium 400 mg (as magnesium oxide) tablet 10-26 00:00: 00 04-01 23:59 :00 No [id number] 1 tablet DAILY 1 tablet DAILY (route: oral) Med Classific ation: Electroly te Balance-N utritiona l Products prednisolon e acetate 1 % eye drops,suspe nsion 10-26 00:00: 00 04-01 23:59 :00 No [id number] 1 drops 3 TIMES DAILY 1 drops 3 TIMES DAILY (route: ophthalmic (eye)) Med Classific ation: Ophthalmi c Agents ropinirole 0.25 mg tablet 09-28 00:00: 00 04-01 23:59 :00 No [id number] Per instruc tions DIRECTED Per instructio ns DIRECTED (route: oral) Med Classific ation: Central Nervous System Agents venlafaxine ER 225 mg tablet,exte nded release 24 hr 10-26 00:00: 00 04-01 23:59 :00 No [id number] 1 tablet DAILY 1 tablet DAILY (route: oral) Med Classific ation: Central Nervous System Agents Vitamin D3 125 mcg (5,000 unit) tablet 09-28 00:00: 00 04-01 23:59 :00 No [id number] 1 tablet DAILY 1 tablet DAILY (route: oral) Med Classific ation: Electroly te Balance-N utritiona l Products clonazepam 0.5 mg tablet 2023-04 0-11 00:00: 00 04-01 23:59 :00 No [id number] Per instruc tions BEDTIME Per instructio ns BEDTIME (route: oral) Med Classific ation: Central Nervous System Agents acetaminoph en 325 mg tablet 04-30 00:00: 00 06-27 23:59 :00 No [id number] 2 tablet EVERY 4 HOURS 2 tablet EVERY 4 HOURS (route: oral) Med Classific ation: Analgesic , Anti-infl ammatory or Antipyret ic albuterol sulfate HFA 90 mcg/actuati on aerosol inhaler 04-30 00:00: 00 06-27 23:59 :00 No [id number] 2 puff EVERY 6 HOURS 2 puff EVERY 6 HOURS (route: inhalation ) Med Classific ation: Respirato ry Therapy Agents amantadine HCl 100 mg tablet 04-30 00:00: 00 06-27 23:59 :00 No [id number] 1 tablet DAILY 1 tablet DAILY (route: oral) Med Classific ation: Central Nervous System Agents amoxicillin 500 mg capsule 04-30 00:00: 00 06-27 23:59 :00 No [id number] 4 capsule DIRECTED 4 capsule DIRECTED (route: oral) Med Classific ation: Anti-Infe ctive Agents Breo Ellipta 100 mcg-25 mcg/dose powder for inhalation 04-30 00:00: 00 06-27 23:59 :00 No [id number] 1 inhalat ion DAILY 1 inhalation DAILY (route: inhalation ) Med Classific ation: Respirato ry Therapy Agents clonazepam 0.5 mg tablet 04-30 00:00: 00 06-27 23:59 :00 No [id number] 1 tablet BEDTIME 1 tablet BEDTIME (route: oral) Med Classific ation: Central Nervous System Agents docusate sodium 100 mg capsule 04-30 00:00: 00 06-27 23:59 :00 No [id number] 1 capsule 2 TIMES DAILY 1 capsule 2 TIMES DAILY (route: oral) Med Classific ation: Gastroint estinal Therapy Agents Eliquis 5 mg tablet 04-30 00:00: 00 06-27 23:59 :00 No [id number] 1 tablet 2 TIMES DAILY 1 tablet 2 TIMES DAILY (route: oral) Med Classific ation: Hematolog ical Agents finasteride 5 mg tablet 04-30 00:00: 00 06-27 23:59 :00 No [id number] 1 tablet DAILY 1 tablet DAILY (route: oral) Med Classific ation: Genitouri nary Therapy gabapentin 100 mg capsule 04-30 00:00: 00 06-27 23:59 :00 No [id number] 1 capsule DAILY 1 capsule DAILY (route: oral) Med Classific ation: Central Nervous System Agents gabapentin 300 mg capsule - 00:00: 00 06-27 23:59 :00 No [id number] 1 capsule BEDTIME 1 capsule BEDTIME (route: oral) Med Classific ation: Central Nervous System Agents mirtazapine 45 mg tablet - 00:00: 00 06-27 23:59 :00 No [id number] 1 tablet BEDTIME 1 tablet BEDTIME (route: oral) Med Classific ation: Central Nervous System Agents pantoprazol e 40 mg tablet,baltazar yed release - 00:00: 00 06-27 23:59 :00 No [id number] 1 tablet DAILY 1 tablet DAILY (route: oral) Med Classific ation: Gastroint estinal Therapy Agents ropinirole 0.25 mg tablet 04-30 00:00: 00 06-27 23:59 :00 No [id number] 1-4 tablet DIRECTED 1-4 tablet DIRECTED (route: oral) Med Classific ation: Central Nervous System Agents Rytary 36.25 mg-145 mg capsule,ext ended release 04-30 00:00: 00 06-27 23:59 :00 No [id number] 2 capsule 4 TIMES DAILY 2 capsule 4 TIMES DAILY (route: oral) Med Classific ation: Central Nervous System Agents venlafaxine ER 225 mg tablet,exte nded release 24 hr - 00:00: 00 06-27 23:59 :00 No [id number] 1 tablet BEDTIME 1 tablet BEDTIME (route: oral) Med Classific ation: Central Nervous System Agents amantadine HCl 100 mg capsule 3-04 00:00: 00 Yes [id number] 1 capsule DAILY 1 capsule DAILY (route: oral) Med Classific ation: Central Nervous System Agents clonazepam 0.5 mg tablet 3-04 00:00: 00 Yes [id number] 1 tablet BEDTIME 1 tablet BEDTIME (route: oral) Med Classific ation: Central Nervous System Agents Eliquis 5 mg tablet 3-04 00:00: 00 Yes [id number] 1 tablet 2 TIMES DAILY 1 tablet 2 TIMES DAILY (route: oral) Med Classific ation: Hematolog ical Agents finasteride 5 mg tablet 06-29 00:00: 00 Yes [id number] 1 tablet DAILY 1 tablet DAILY (route: oral) Med Classific ation: Genitouri nary Therapy gabapentin 100 mg capsule 06-29 00:00: 00 Yes [id number] 1 capsule DAILY 1 capsule DAILY (route: oral) Med Classific ation: Central Nervous System Agents gabapentin 300 mg capsule 06-29 00:00: 00 Yes [id number] 1 capsule BEDTIME 1 capsule BEDTIME (route: oral) Med Classific ation: Central Nervous System Agents mirtazapine 45 mg tablet 06-29 00:00: 00 Yes [id number] 1 tablet DAILY 1 tablet DAILY (route: oral) Med Classific ation: Central Nervous System Agents pantoprazol e 40 mg tablet,baltazar yed release 06-29 00:00: 00 10-21 23:59 :00 No [id number] 1 tablet DAILY 1 tablet DAILY (route: oral) Med Classific ation: Gastroint estinal Therapy Agents ropinirole 0.25 mg tablet 06-29 00:00: 00 Yes [id number] 2 tablet DAILY 2 tablet DAILY (route: oral) Med Classific ation: Central Nervous System Agents Rytary 36.25 mg-145 mg capsule,ext ended release 06-29 00:00: 00 Yes [id number] 3 capsule 4 TIMES DAILY 3 capsule 4 TIMES DAILY (route: oral) Med Classific ation: Central Nervous System Agents venlafaxine ER 225 mg tablet,exte nded release 24 hr 06-29 00:00: 00 Yes [id number] 1 tablet DAILY 1 tablet DAILY (route: oral) Med Classific ation: Central Nervous System Agents albuterol sulfate HFA 90 mcg/actuati on aerosol inhaler 06-29 00:00: 00 Yes [id number] 2 puff EVERY 6 HOURS 2 puff EVERY 6 HOURS (route: inhalation ) Med Classific ation: Respirato ry Therapy Agents Breo Ellipta 100 mcg-25 mcg/dose powder for inhalation 3-04 00:00: 00 Yes [id number] 1 inhalat ion DAILY 1 inhalation DAILY (route: inhalation ) Med Classific ation: Respirato ry Therapy Agents pantoprazol e 40 mg tablet,baltazar yed release 3- 00:00: 00 10-21 23:59 :00 No [id number] 1 tablet 2 TIMES DAILY 1 tablet 2 TIMES DAILY (route: oral) Med Classific ation: Gastroint estinal Therapy Agents fluconazole 200 mg tablet - 00:00: 00 Yes [id number] 200 mg DAILY 200 mg DAILY (route: oral) Alternate Route: SUBLINGUA L. Med Classific ation: Anti-Infe ctive Agents Carafate 100 mg/mL oral suspension 10-26 00:00: 00 Yes [id number] 10 mL 4 TIMES DAILY 10 mL 4 TIMES DAILY (route: oral) Med Classific ation: Gastroint estinal Therapy Agents Voquezna 20 mg tablet 10-26 00:00: 00 12-03 00:58 :03.3 47 No [id number] 1 tablet 2 TIMES DAILY 1 tablet 2 TIMES DAILY (route: oral) Med Classific ation: Gastroint estinal Therapy Agents Voquezna 20 mg tablet 10-21 00:00: 00 Yes [id number] 1 tablet 2 TIMES DAILY 1 tablet [...] MAINTAIN SITUATIONAL AWARENESS AND WILL NOTIFY CLINICAL PRINTED CIRCUIT LAYOUT TAPER AND PHYSICIAN/PROVIDER WITH ANY CHANGE IN CONDITION. [code = SKILLED NURSE TO PERFORM ENVIRONMENTAL SAFETY RISK ASSESSMENT AND FALL RISK ASSESSMENT AND PROVIDE INSTRUCTION TO IMPLEMENT ENVIRONMENTAL SAFETY AND FALL PREVENTION STRATEGIES THROUGHOUT THE CERTIFICATION PERIOD. SKILLED NURSE WILL MAINTAIN SITUATIONAL AWARENESS AND WILL NOTIFY CLINICAL PRINTED CIRCUIT LAYOUT TAPER AND PHYSICIAN/PROVIDER WITH ANY CHANGE IN CONDITION.] [...] LASIX PATIENT LIVING SITUATION/CAREGIVER STATUS: [facility] SUMMAR[facility] SKILLED NEED: DISEASE [...] Date/Time Encounter Type Admission Type Attending [facility] Care Department Encounter ID Discharge Date Discharge Status Discharge Condition Discharge Reason Percent Goals Met 2025-02-24 00:00:00 2025-04-24 00:00:00 Outpatient RECERTIFIC ATION DEMETRI SLAUGHTER [facility] [id number] 6.25
--- OUTSIDE RECORDS SUMMARY | 2025-04-23 19:00 | XMS_ITS | Clinical Summary ---
Author Organization Unknown Care Team Providers Care Wire Splicer Name Role Phone DARIAN DANGELO, ANYA Unavailable Unavaila aleisha CHRISTENSEN STENCIL CUTTER MACHINE/LOGISTICS MANAGER, RENAN Unavailable Unava susie SLAUGHTER RN, DEMETRI Unavailable Unavailable Payers Payer Name Policy Type Policy Number Effective Date Expira tion Date MEDICARE - [facility] [place] - PD [id number] Problems Condition Name Condition Details Condition Category [...] 01-11 00:00: 00 01-18 23:59 :00 No [id number] 1 tablet 2 TIMES DAILY 1 tablet 2 TIMES DAILY (route: oral) Med Classific ation: Anti-Infe ctive Agents lactulose 10 gram/15 mL oral solution 01-11 00:00: 00 04-01 23:59 :00 No [id number] 30 g DAILY 30 g DAILY (route: oral) Med Classific ation: Gastroint estinal Therapy Agents Rytary 36.25 mg-145 mg capsule,ext ended release 13 00:00: 00 04-01 23:59 :00 No [id number] 4 capsule 4 TIMES DAILY 4 capsule 4 TIMES DAILY (route: oral) Med Classific ation: Central Nervous System Agents Breo Ellipta 100 mcg-25 mcg/dose powder for inhalation - 00:00: 00 04-01 23:59 :00 No [id number] 1 inhalat ion ONCE DAILY 1 inhalation ONCE DAILY (route: inhalation ) Med Classific ation: Respirato ry Therapy Agents mirtazapine 45 mg tablet 12-12 00:00: 00 04-01 23:59 :00 No [id number] 1 tablet DAILY 1 tablet DAILY (route: oral) Med Classific ation: Central Nervous System Agents docusate sodium 100 mg capsule 16 00:00: 00 04-01 23:59 :00 No [id number] 1 capsule 2 TIMES DAILY 1 capsule 2 TIMES DAILY (route: oral) Med Classific ation: Gastroint estinal Therapy Agents Eliquis 5 mg tablet 10-26 00:00: 00 04-01 23:59 :00 No [id number] 1 tablet 2 TIMES DAILY 1 tablet 2 TIMES DAILY (route: oral) Med Classific ation: Hematolog ical Agents ferrous sulfate 325 mg (65 mg iron) tablet 10-26 00:00: 00 04-01 23:59 :00 No [id number] 1 tablet DAILY 1 tablet DAILY (route: oral) Med Classific ation: Electroly te Balance-N utritiona l Products finasteride 5 mg tablet 10-26 00:00: 00 04-01 23:59 :00 No [id number] 1 tablet DAILY 1 tablet DAILY (route: oral) Med Classific ation: Genitouri nary Therapy furosemide 40 mg tablet 10-26 00:00: 00 04-01 23:59 :00 No [id number] 1 tablet 2 TIMES DAILY 1 tablet 2 TIMES DAILY (route: oral) Med Classific ation: Cardiovas cular Therapy Agents magnesium 400 mg (as magnesium oxide) tablet 10-26 00:00: 00 04-01 23:59 :00 No [id number] 1 tablet DAILY 1 tablet DAILY (route: oral) Med Classific ation: Electroly te Balance-N utritiona l Products prednisolon e acetate 1 % eye drops,suspe nsion 10-26 00:00: 00 04-01 23:59 :00 No [id number] 1 drops 3 TIMES DAILY 1 drops 3 TIMES DAILY (route: ophthalmic (eye)) Med Classific ation: Ophthalmi c Agents ropinirole 0.25 mg tablet 09-28 00:00: 00 04-01 23:59 :00 No [id number] Per instruc tions DIRECTED Per instructio ns DIRECTED (route: oral) Med Classific ation: Central Nervous System Agents venlafaxine ER 225 mg tablet,exte nded release 24 hr 10-26 00:00: 00 04-01 23:59 :00 No [id number] 1 tablet DAILY 1 tablet DAILY (route: oral) Med Classific ation: Central Nervous System Agents Vitamin D3 125 mcg (5,000 unit) tablet 09-28 00:00: 00 04-01 23:59 :00 No [id number] 1 tablet DAILY 1 tablet DAILY (route: oral) Med Classific ation: Electroly te Balance-N utritiona l Products clonazepam 0.5 mg tablet 2023-04 0-11 00:00: 00 04-01 23:59 :00 No [id number] Per instruc tions BEDTIME Per instructio ns BEDTIME (route: oral) Med Classific ation: Central Nervous System Agents acetaminoph en 325 mg tablet 04-30 00:00: 00 06-27 23:59 :00 No [id number] 2 tablet EVERY 4 HOURS 2 tablet EVERY 4 HOURS (route: oral) Med Classific ation: Analgesic , Anti-infl ammatory or Antipyret ic albuterol sulfate HFA 90 mcg/actuati on aerosol inhaler 04-30 00:00: 00 06-27 23:59 :00 No [id number] 2 puff EVERY 6 HOURS 2 puff EVERY 6 HOURS (route: inhalation ) Med Classific ation: Respirato ry Therapy Agents amantadine HCl 100 mg tablet 04-30 00:00: 00 06-27 23:59 :00 No [id number] 1 tablet DAILY 1 tablet DAILY (route: oral) Med Classific ation: Central Nervous System Agents amoxicillin 500 mg capsule 04-30 00:00: 00 06-27 23:59 :00 No [id number] 4 capsule DIRECTED 4 capsule DIRECTED (route: oral) Med Classific ation: Anti-Infe ctive Agents Breo Ellipta 100 mcg-25 mcg/dose powder for inhalation 04-30 00:00: 00 06-27 23:59 :00 No [id number] 1 inhalat ion DAILY 1 inhalation DAILY (route: inhalation ) Med Classific ation: Respirato ry Therapy Agents clonazepam 0.5 mg tablet 04-30 00:00: 00 06-27 23:59 :00 No [id number] 1 tablet BEDTIME 1 tablet BEDTIME (route: oral) Med Classific ation: Central Nervous System Agents docusate sodium 100 mg capsule 04-30 00:00: 00 06-27 23:59 :00 No [id number] 1 capsule 2 TIMES DAILY 1 capsule 2 TIMES DAILY (route: oral) Med Classific ation: Gastroint estinal Therapy Agents Eliquis 5 mg tablet 04-30 00:00: 00 06-27 23:59 :00 No [id number] 1 tablet 2 TIMES DAILY 1 tablet 2 TIMES DAILY (route: oral) Med Classific ation: Hematolog ical Agents finasteride 5 mg tablet 04-30 00:00: 00 06-27 23:59 :00 No [id number] 1 tablet DAILY 1 tablet DAILY (route: oral) Med Classific ation: Genitouri nary Therapy gabapentin 100 mg capsule 04-30 00:00: 00 06-27 23:59 :00 No [id number] 1 capsule DAILY 1 capsule DAILY (route: oral) Med Classific ation: Central Nervous System Agents gabapentin 300 mg capsule - 00:00: 00 06-27 23:59 :00 No [id number] 1 capsule BEDTIME 1 capsule BEDTIME (route: oral) Med Classific ation: Central Nervous System Agents mirtazapine 45 mg tablet - 00:00: 00 06-27 23:59 :00 No [id number] 1 tablet BEDTIME 1 tablet BEDTIME (route: oral) Med Classific ation: Central Nervous System Agents pantoprazol e 40 mg tablet,baltazar yed release - 00:00: 00 06-27 23:59 :00 No [id number] 1 tablet DAILY 1 tablet DAILY (route: oral) Med Classific ation: Gastroint estinal Therapy Agents ropinirole 0.25 mg tablet 04-30 00:00: 00 06-27 23:59 :00 No [id number] 1-4 tablet DIRECTED 1-4 tablet DIRECTED (route: oral) Med Classific ation: Central Nervous System Agents Rytary 36.25 mg-145 mg capsule,ext ended release 04-30 00:00: 00 06-27 23:59 :00 No [id number] 2 capsule 4 TIMES DAILY 2 capsule 4 TIMES DAILY (route: oral) Med Classific ation: Central Nervous System Agents venlafaxine ER 225 mg tablet,exte nded release 24 hr - 00:00: 00 06-27 23:59 :00 No [id number] 1 tablet BEDTIME 1 tablet BEDTIME (route: oral) Med Classific ation: Central Nervous System Agents amantadine HCl 100 mg capsule 3-04 00:00: 00 Yes [id number] 1 capsule DAILY 1 capsule DAILY (route: oral) Med Classific ation: Central Nervous System Agents clonazepam 0.5 mg tablet 3-04 00:00: 00 Yes [id number] 1 tablet BEDTIME 1 tablet BEDTIME (route: oral) Med Classific ation: Central Nervous System Agents Eliquis 5 mg tablet 3-04 00:00: 00 Yes [id number] 1 tablet 2 TIMES DAILY 1 tablet 2 TIMES DAILY (route: oral) Med Classific ation: Hematolog ical Agents finasteride 5 mg tablet 06-29 00:00: 00 Yes [id number] 1 tablet DAILY 1 tablet DAILY (route: oral) Med Classific ation: Genitouri nary Therapy gabapentin 100 mg capsule 06-29 00:00: 00 Yes [id number] 1 capsule DAILY 1 capsule DAILY (route: oral) Med Classific ation: Central Nervous System Agents gabapentin 300 mg capsule 06-29 00:00: 00 Yes [id number] 1 capsule BEDTIME 1 capsule BEDTIME (route: oral) Med Classific ation: Central Nervous System Agents mirtazapine 45 mg tablet 06-29 00:00: 00 Yes [id number] 1 tablet DAILY 1 tablet DAILY (route: oral) Med Classific ation: Central Nervous System Agents pantoprazol e 40 mg tablet,baltazar yed release 06-29 00:00: 00 10-21 23:59 :00 No [id number] 1 tablet DAILY 1 tablet DAILY (route: oral) Med Classific ation: Gastroint estinal Therapy Agents ropinirole 0.25 mg tablet 06-29 00:00: 00 Yes [id number] 2 tablet DAILY 2 tablet DAILY (route: oral) Med Classific ation: Central Nervous System Agents Rytary 36.25 mg-145 mg capsule,ext ended release 06-29 00:00: 00 Yes [id number] 3 capsule 4 TIMES DAILY 3 capsule 4 TIMES DAILY (route: oral) Med Classific ation: Central Nervous System Agents venlafaxine ER 225 mg tablet,exte nded release 24 hr 06-29 00:00: 00 Yes [id number] 1 tablet DAILY 1 tablet DAILY (route: oral) Med Classific ation: Central Nervous System Agents albuterol sulfate HFA 90 mcg/actuati on aerosol inhaler 06-29 00:00: 00 Yes [id number] 2 puff EVERY 6 HOURS 2 puff EVERY 6 HOURS (route: inhalation ) Med Classific ation: Respirato ry Therapy Agents Breo Ellipta 100 mcg-25 mcg/dose powder for inhalation 3-04 00:00: 00 Yes [id number] 1 inhalat ion DAILY 1 inhalation DAILY (route: inhalation ) Med Classific ation: Respirato ry Therapy Agents pantoprazol e 40 mg tablet,baltazar yed release 3- 00:00: 00 10-21 23:59 :00 No [id number] 1 tablet 2 TIMES DAILY 1 tablet 2 TIMES DAILY (route: oral) Med Classific ation: Gastroint estinal Therapy Agents fluconazole 200 mg tablet - 00:00: 00 Yes [id number] 200 mg DAILY 200 mg DAILY (route: oral) Alternate Route: SUBLINGUA L. Med Classific ation: Anti-Infe ctive Agents Carafate 100 mg/mL oral suspension 10-26 00:00: 00 Yes [id number] 10 mL 4 TIMES DAILY 10 mL 4 TIMES DAILY (route: oral) Med Classific ation: Gastroint estinal Therapy Agents Voquezna 20 mg tablet 10-26 00:00: 00 12-03 00:58 :03.3 47 No [id number] 1 tablet 2 TIMES DAILY 1 tablet 2 TIMES DAILY (route: oral) Med Classific ation: Gastroint estinal Therapy Agents Voquezna 20 mg tablet 10-21 00:00: 00 Yes [id number] 1 tablet 2 TIMES DAILY 1 tablet [...] BLOCKAGE/LEAKAGE, HEAVY SEDIMENT. 1 - 3 PRN SNF VISITS FOR CATHETER CHANGE(S) AND/OR TROUBLESHOOTING. [code = SKILLED NURSE TO INSTRUCT PATIENT/CAREGIVER AND PERFORM CARE AND MANAGEMENT OF INDWELLING URINARY CATHETER. [place] CATHETER INSERTION WITH 18 FR CATHETER WITH 10 ML BALLOON VIA STERILE TECHNIQUE, CHANGE Q 4 WEEKS AND PRN FOR LEAKING OR MALFUNCTIONING CATHETER. IRRIGATE URINARY CATHETER WITH 30-60CC NORMAL SALINE PRN BLOCKAGE/LEAKAGE, HEAVY SEDIMENT. 1 - 3 PRN SNF VISITS FOR CATHETER CHANGE(S) AND/OR TROUBLESHOOTING.] Future [...] MAINTAIN SITUATIONAL AWARENESS AND WILL NOTIFY CLINICAL OPEN HEARTH STOCKYARD SUPERVISOR AND PHYSICIAN/PROVIDER WITH ANY CHANGE IN CONDITION. [code = SKILLED NURSE TO PERFORM ENVIRONMENTAL SAFETY RISK ASSESSMENT AND FALL RISK ASSESSMENT AND PROVIDE INSTRUCTION TO IMPLEMENT ENVIRONMENTAL SAFETY AND FALL PREVENTION STRATEGIES THROUGHOUT THE CERTIFICATION PERIOD. SKILLED NURSE WILL MAINTAIN SITUATIONAL AWARENESS AND WILL NOTIFY CLINICAL OPEN HEARTH STOCKYARD SUPERVISOR AND PHYSICIAN/PROVIDER WITH ANY CHANGE IN CONDITION.] [...] CARE WILL BE ESTABLISHED THAT MEETS PATIENT'S SNF NEEDS AND INCLUDES PATIENT GOAL FOR HOME [...] End Date/Time Encounter Type Admission Type Attending [facility] Care Department Encounter ID Discharge Date Discharge Status Discharge Condition Discharge Reason Percent Goals Met 2025-02-24 00:00:00 2025-04-24 00:00:00 Outpatient RECERTIFIC ATION DEMETRI SLAUGHTER [facility] [id number] 6.25
--- OUTSIDE RECORDS SUMMARY | 2025-04-23 19:00 | XMS_ITS | Clinical Summary ---
Author Organization Unknown Care Team Providers Care Marketing Campaign Analyst Name Role Phone DARIAN DANGELO, ANYA Unavailable Unavaila aleisha CHRISTENSEN PIN STICKER/MAINTENANCE MECHANIC TELEPHONE, RENAN Unavailable Unava susie SLAUGHTER RN, DEMETRI Unavailable Unavailable Payers Payer Name Policy Type Policy Number Effective Date Expira tion Date MEDICARE - [facility] - PD [id number] Problems Condition Name Condition Details Condition Category [...] OF URINARY DEVICE Active 04-28 00:00: 00 SENIOR CARE (CURRENT) USE OF ANTICOAGULAN TS Active 04-28 [...] 01-11 00:00: 00 01-18 23:59 :00 No [id number] 1 tablet 2 TIMES DAILY 1 tablet 2 TIMES DAILY (route: oral) Med Classific ation: Anti-Infe ctive Agents lactulose 10 gram/15 mL oral solution 01-11 00:00: 00 04-01 23:59 :00 No [id number] 30 g DAILY 30 g DAILY (route: oral) Med Classific ation: Gastroint estinal Therapy Agents Rytary 36.25 mg-145 mg capsule,ext ended release 13 00:00: 00 04-01 23:59 :00 No [id number] 4 capsule 4 TIMES DAILY 4 capsule 4 TIMES DAILY (route: oral) Med Classific ation: Central Nervous System Agents Breo Ellipta 100 mcg-25 mcg/dose powder for inhalation - 00:00: 00 04-01 23:59 :00 No [id number] 1 inhalat ion ONCE DAILY 1 inhalation ONCE DAILY (route: inhalation ) Med Classific ation: Respirato ry Therapy Agents mirtazapine 45 mg tablet 12-12 00:00: 00 04-01 23:59 :00 No [id number] 1 tablet DAILY 1 tablet DAILY (route: oral) Med Classific ation: Central Nervous System Agents docusate sodium 100 mg capsule 16 00:00: 00 04-01 23:59 :00 No [id number] 1 capsule 2 TIMES DAILY 1 capsule 2 TIMES DAILY (route: oral) Med Classific ation: Gastroint estinal Therapy Agents Eliquis 5 mg tablet 10-26 00:00: 00 04-01 23:59 :00 No [id number] 1 tablet 2 TIMES DAILY 1 tablet 2 TIMES DAILY (route: oral) Med Classific ation: Hematolog ical Agents ferrous sulfate 325 mg (65 mg iron) tablet 10-26 00:00: 00 04-01 23:59 :00 No [id number] 1 tablet DAILY 1 tablet DAILY (route: oral) Med Classific ation: Electroly te Balance-N utritiona l Products finasteride 5 mg tablet 10-26 00:00: 00 04-01 23:59 :00 No [id number] 1 tablet DAILY 1 tablet DAILY (route: oral) Med Classific ation: Genitouri nary Therapy furosemide 40 mg tablet 10-26 00:00: 00 04-01 23:59 :00 No [id number] 1 tablet 2 TIMES DAILY 1 tablet 2 TIMES DAILY (route: oral) Med Classific ation: Cardiovas cular Therapy Agents magnesium 400 mg (as magnesium oxide) tablet 10-26 00:00: 00 04-01 23:59 :00 No [id number] 1 tablet DAILY 1 tablet DAILY (route: oral) Med Classific ation: Electroly te Balance-N utritiona l Products prednisolon e acetate 1 % eye drops,suspe nsion 10-26 00:00: 00 04-01 23:59 :00 No [id number] 1 drops 3 TIMES DAILY 1 drops 3 TIMES DAILY (route: ophthalmic (eye)) Med Classific ation: Ophthalmi c Agents ropinirole 0.25 mg tablet 09-28 00:00: 00 04-01 23:59 :00 No [id number] Per instruc tions DIRECTED Per instructio ns DIRECTED (route: oral) Med Classific ation: Central Nervous System Agents venlafaxine ER 225 mg tablet,exte nded release 24 hr 10-26 00:00: 00 04-01 23:59 :00 No [id number] 1 tablet DAILY 1 tablet DAILY (route: oral) Med Classific ation: Central Nervous System Agents Vitamin D3 125 mcg (5,000 unit) tablet 09-28 00:00: 00 04-01 23:59 :00 No [id number] 1 tablet DAILY 1 tablet DAILY (route: oral) Med Classific ation: Electroly te Balance-N utritiona l Products clonazepam 0.5 mg tablet 2023-04 0-11 00:00: 00 04-01 23:59 :00 No [id number] Per instruc tions BEDTIME Per instructio ns BEDTIME (route: oral) Med Classific ation: Central Nervous System Agents acetaminoph en 325 mg tablet 04-30 00:00: 00 06-27 23:59 :00 No [id number] 2 tablet EVERY 4 HOURS 2 tablet EVERY 4 HOURS (route: oral) Med Classific ation: Analgesic , Anti-infl ammatory or Antipyret ic albuterol sulfate HFA 90 mcg/actuati on aerosol inhaler 04-30 00:00: 00 06-27 23:59 :00 No [id number] 2 puff EVERY 6 HOURS 2 puff EVERY 6 HOURS (route: inhalation ) Med Classific ation: Respirato ry Therapy Agents amantadine HCl 100 mg tablet 04-30 00:00: 00 06-27 23:59 :00 No [id number] 1 tablet DAILY 1 tablet DAILY (route: oral) Med Classific ation: Central Nervous System Agents amoxicillin 500 mg capsule 04-30 00:00: 00 06-27 23:59 :00 No [id number] 4 capsule DIRECTED 4 capsule DIRECTED (route: oral) Med Classific ation: Anti-Infe ctive Agents Breo Ellipta 100 mcg-25 mcg/dose powder for inhalation 04-30 00:00: 00 06-27 23:59 :00 No [id number] 1 inhalat ion DAILY 1 inhalation DAILY (route: inhalation ) Med Classific ation: Respirato ry Therapy Agents clonazepam 0.5 mg tablet 04-30 00:00: 00 06-27 23:59 :00 No [id number] 1 tablet BEDTIME 1 tablet BEDTIME (route: oral) Med Classific ation: Central Nervous System Agents docusate sodium 100 mg capsule 04-30 00:00: 00 06-27 23:59 :00 No [id number] 1 capsule 2 TIMES DAILY 1 capsule 2 TIMES DAILY (route: oral) Med Classific ation: Gastroint estinal Therapy Agents Eliquis 5 mg tablet 04-30 00:00: 00 06-27 23:59 :00 No [id number] 1 tablet 2 TIMES DAILY 1 tablet 2 TIMES DAILY (route: oral) Med Classific ation: Hematolog ical Agents finasteride 5 mg tablet 04-30 00:00: 00 06-27 23:59 :00 No [id number] 1 tablet DAILY 1 tablet DAILY (route: oral) Med Classific ation: Genitouri nary Therapy gabapentin 100 mg capsule 04-30 00:00: 00 06-27 23:59 :00 No [id number] 1 capsule DAILY 1 capsule DAILY (route: oral) Med Classific ation: Central Nervous System Agents gabapentin 300 mg capsule - 00:00: 00 06-27 23:59 :00 No [id number] 1 capsule BEDTIME 1 capsule BEDTIME (route: oral) Med Classific ation: Central Nervous System Agents mirtazapine 45 mg tablet - 00:00: 00 06-27 23:59 :00 No [id number] 1 tablet BEDTIME 1 tablet BEDTIME (route: oral) Med Classific ation: Central Nervous System Agents pantoprazol e 40 mg tablet,baltazar yed release - 00:00: 00 06-27 23:59 :00 No [id number] 1 tablet DAILY 1 tablet DAILY (route: oral) Med Classific ation: Gastroint estinal Therapy Agents ropinirole 0.25 mg tablet 04-30 00:00: 00 06-27 23:59 :00 No [id number] 1-4 tablet DIRECTED 1-4 tablet DIRECTED (route: oral) Med Classific ation: Central Nervous System Agents Rytary 36.25 mg-145 mg capsule,ext ended release 04-30 00:00: 00 06-27 23:59 :00 No [id number] 2 capsule 4 TIMES DAILY 2 capsule 4 TIMES DAILY (route: oral) Med Classific ation: Central Nervous System Agents venlafaxine ER 225 mg tablet,exte nded release 24 hr - 00:00: 00 06-27 23:59 :00 No [id number] 1 tablet BEDTIME 1 tablet BEDTIME (route: oral) Med Classific ation: Central Nervous System Agents amantadine HCl 100 mg capsule 3-04 00:00: 00 Yes [id number] 1 capsule DAILY 1 capsule DAILY (route: oral) Med Classific ation: Central Nervous System Agents clonazepam 0.5 mg tablet 3-04 00:00: 00 Yes [id number] 1 tablet BEDTIME 1 tablet BEDTIME (route: oral) Med Classific ation: Central Nervous System Agents Eliquis 5 mg tablet 3-04 00:00: 00 Yes [id number] 1 tablet 2 TIMES DAILY 1 tablet 2 TIMES DAILY (route: oral) Med Classific ation: Hematolog ical Agents finasteride 5 mg tablet 06-29 00:00: 00 Yes [id number] 1 tablet DAILY 1 tablet DAILY (route: oral) Med Classific ation: Genitouri nary Therapy gabapentin 100 mg capsule 06-29 00:00: 00 Yes [id number] 1 capsule DAILY 1 capsule DAILY (route: oral) Med Classific ation: Central Nervous System Agents gabapentin 300 mg capsule 06-29 00:00: 00 Yes [id number] 1 capsule BEDTIME 1 capsule BEDTIME (route: oral) Med Classific ation: Central Nervous System Agents mirtazapine 45 mg tablet 06-29 00:00: 00 Yes [id number] 1 tablet DAILY 1 tablet DAILY (route: oral) Med Classific ation: Central Nervous System Agents pantoprazol e 40 mg tablet,baltazar yed release 06-29 00:00: 00 10-21 23:59 :00 No [id number] 1 tablet DAILY 1 tablet DAILY (route: oral) Med Classific ation: Gastroint estinal Therapy Agents ropinirole 0.25 mg tablet 06-29 00:00: 00 Yes [id number] 2 tablet DAILY 2 tablet DAILY (route: oral) Med Classific ation: Central Nervous System Agents Rytary 36.25 mg-145 mg capsule,ext ended release 06-29 00:00: 00 Yes [id number] 3 capsule 4 TIMES DAILY 3 capsule 4 TIMES DAILY (route: oral) Med Classific ation: Central Nervous System Agents venlafaxine ER 225 mg tablet,exte nded release 24 hr 06-29 00:00: 00 Yes [id number] 1 tablet DAILY 1 tablet DAILY (route: oral) Med Classific ation: Central Nervous System Agents albuterol sulfate HFA 90 mcg/actuati on aerosol inhaler 06-29 00:00: 00 Yes [id number] 2 puff EVERY 6 HOURS 2 puff EVERY 6 HOURS (route: inhalation ) Med Classific ation: Respirato ry Therapy Agents Breo Ellipta 100 mcg-25 mcg/dose powder for inhalation 3-04 00:00: 00 Yes [id number] 1 inhalat ion DAILY 1 inhalation DAILY (route: inhalation ) Med Classific ation: Respirato ry Therapy Agents pantoprazol e 40 mg tablet,baltazar yed release 3- 00:00: 00 10-21 23:59 :00 No [id number] 1 tablet 2 TIMES DAILY 1 tablet 2 TIMES DAILY (route: oral) Med Classific ation: Gastroint estinal Therapy Agents fluconazole 200 mg tablet - 00:00: 00 Yes [id number] 200 mg DAILY 200 mg DAILY (route: oral) Alternate Route: SUBLINGUA L. Med Classific ation: Anti-Infe ctive Agents Carafate 100 mg/mL oral suspension 10-26 00:00: 00 Yes [id number] 10 mL 4 TIMES DAILY 10 mL 4 TIMES DAILY (route: oral) Med Classific ation: Gastroint estinal Therapy Agents Voquezna 20 mg tablet 10-26 00:00: 00 12-03 00:58 :03.3 47 No [id number] 1 tablet 2 TIMES DAILY 1 tablet 2 TIMES DAILY (route: oral) Med Classific ation: Gastroint estinal Therapy Agents Voquezna 20 mg tablet 10-21 00:00: 00 Yes [id number] 1 tablet 2 TIMES DAILY 1 tablet [...] HEAVY SEDIMENT. 1 - 3 PRN SENIOR LIVING VISITS FOR CATHETER CHANGE(S) AND/OR TROUBLESHOOTING. [code = SKILLED NURSE TO INSTRUCT PATIENT/CAREGIVER AND PERFORM CARE AND MANAGEMENT OF INDWELLING URINARY CATHETER. [place] CATHETER INSERTION WITH 18 FR CATHETER WITH 10 ML BALLOON VIA STERILE TECHNIQUE, CHANGE Q 4 WEEKS AND PRN FOR LEAKING OR MALFUNCTIONING CATHETER. IRRIGATE URINARY CATHETER WITH 30-60CC NORMAL SALINE PRN BLOCKAGE/LEAKAGE, HEAVY SEDIMENT. 1 - 3 PRN SENIOR LIVING VISITS FOR CATHETER CHANGE(S) AND/OR TROUBLESHOOTING.] Future [...] MAINTAIN SITUATIONAL AWARENESS AND WILL NOTIFY CLINICAL BELT CONVEYOR DRIER AND PHYSICIAN/PROVIDER WITH ANY CHANGE IN CONDITION. [code = SKILLED NURSE TO PERFORM ENVIRONMENTAL SAFETY RISK ASSESSMENT AND FALL RISK ASSESSMENT AND PROVIDE INSTRUCTION TO IMPLEMENT ENVIRONMENTAL SAFETY AND FALL PREVENTION STRATEGIES THROUGHOUT THE CERTIFICATION PERIOD. SKILLED NURSE WILL MAINTAIN SITUATIONAL AWARENESS AND WILL NOTIFY CLINICAL BELT CONVEYOR DRIER AND PHYSICIAN/PROVIDER WITH ANY CHANGE IN CONDITION.] [...] LASIX PATIENT LIVING SITUATION/CAREGIVER STATUS[facility] SUMMAR[facility] SKILLED NEED: DISEASE [...] WILL BE ESTABLISHED THAT MEETS PATIENT'S SENIOR LIVING NEEDS AND INCLUDES PATIENT GOAL FOR HOME [...] End Date/Time Encounter Type Admission Type Attending [facility] Care Department Encounter ID Discharge Date Discharge Status Discharge Condition Discharge Reason Percent Goals Met 2025-02-24 00:00:00 2025-04-24 00:00:00 Outpatient RECERTIFIC ATION DEMETRI SLAUGHTER [facility] [id number] 6.25
--- OUTSIDE RECORDS SUMMARY | 2025-04-23 19:00 | XMS_ITS | Clinical Summary ---
Author Organization Unknown Care Team Providers Care Linen Room Supervisor Name Role Phone DARIAN DANGELO, ANYA Unavailable Unavaila aleisha CHRISTENSEN REGISTERED RESPIRATORY THERAPIST/FINGER COBBLER, RENAN Unavailable Unava susie SLAUGHTER RN, DEMETRI Unavailable Unavailable Payers Payer Name Policy Type Policy Number Effective Date Expira tion Date MEDICARE - [facility] - PD [id number] Problems Condition Name Condition Details Condition Category [...] 01-11 00:00: 00 01-18 23:59 :00 No [id number] 1 tablet 2 TIMES DAILY 1 tablet 2 TIMES DAILY (route: oral) Med Classific ation: Anti-Infe ctive Agents lactulose 10 gram/15 mL oral solution 01-11 00:00: 00 04-01 23:59 :00 No [id number] 30 g DAILY 30 g DAILY (route: oral) Med Classific ation: Gastroint estinal Therapy Agents Rytary 36.25 mg-145 mg capsule,ext ended release 13 00:00: 00 04-01 23:59 :00 No [id number] 4 capsule 4 TIMES DAILY 4 capsule 4 TIMES DAILY (route: oral) Med Classific ation: Central Nervous System Agents Breo Ellipta 100 mcg-25 mcg/dose powder for inhalation - 00:00: 00 04-01 23:59 :00 No [id number] 1 inhalat ion ONCE DAILY 1 inhalation ONCE DAILY (route: inhalation ) Med Classific ation: Respirato ry Therapy Agents mirtazapine 45 mg tablet 12-12 00:00: 00 04-01 23:59 :00 No [id number] 1 tablet DAILY 1 tablet DAILY (route: oral) Med Classific ation: Central Nervous System Agents docusate sodium 100 mg capsule 16 00:00: 00 04-01 23:59 :00 No [id number] 1 capsule 2 TIMES DAILY 1 capsule 2 TIMES DAILY (route: oral) Med Classific ation: Gastroint estinal Therapy Agents Eliquis 5 mg tablet 10-26 00:00: 00 04-01 23:59 :00 No [id number] 1 tablet 2 TIMES DAILY 1 tablet 2 TIMES DAILY (route: oral) Med Classific ation: Hematolog ical Agents ferrous sulfate 325 mg (65 mg iron) tablet 10-26 00:00: 00 04-01 23:59 :00 No [id number] 1 tablet DAILY 1 tablet DAILY (route: oral) Med Classific ation: Electroly te Balance-N utritiona l Products finasteride 5 mg tablet 10-26 00:00: 00 04-01 23:59 :00 No [id number] 1 tablet DAILY 1 tablet DAILY (route: oral) Med Classific ation: Genitouri nary Therapy furosemide 40 mg tablet 10-26 00:00: 00 04-01 23:59 :00 No [id number] 1 tablet 2 TIMES DAILY 1 tablet 2 TIMES DAILY (route: oral) Med Classific ation: Cardiovas cular Therapy Agents magnesium 400 mg (as magnesium oxide) tablet 10-26 00:00: 00 04-01 23:59 :00 No [id number] 1 tablet DAILY 1 tablet DAILY (route: oral) Med Classific ation: Electroly te Balance-N utritiona l Products prednisolon e acetate 1 % eye drops,suspe nsion 10-26 00:00: 00 04-01 23:59 :00 No [id number] 1 drops 3 TIMES DAILY 1 drops 3 TIMES DAILY (route: ophthalmic (eye)) Med Classific ation: Ophthalmi c Agents ropinirole 0.25 mg tablet 09-28 00:00: 00 04-01 23:59 :00 No [id number] Per instruc tions DIRECTED Per instructio ns DIRECTED (route: oral) Med Classific ation: Central Nervous System Agents venlafaxine ER 225 mg tablet,exte nded release 24 hr 10-26 00:00: 00 04-01 23:59 :00 No [id number] 1 tablet DAILY 1 tablet DAILY (route: oral) Med Classific ation: Central Nervous System Agents Vitamin D3 125 mcg (5,000 unit) tablet 09-28 00:00: 00 04-01 23:59 :00 No [id number] 1 tablet DAILY 1 tablet DAILY (route: oral) Med Classific ation: Electroly te Balance-N utritiona l Products clonazepam 0.5 mg tablet 2023-04 0-11 00:00: 00 04-01 23:59 :00 No [id number] Per instruc tions BEDTIME Per instructio ns BEDTIME (route: oral) Med Classific ation: Central Nervous System Agents acetaminoph en 325 mg tablet 04-30 00:00: 00 06-27 23:59 :00 No [id number] 2 tablet EVERY 4 HOURS 2 tablet EVERY 4 HOURS (route: oral) Med Classific ation: Analgesic , Anti-infl ammatory or Antipyret ic albuterol sulfate HFA 90 mcg/actuati on aerosol inhaler 04-30 00:00: 00 06-27 23:59 :00 No [id number] 2 puff EVERY 6 HOURS 2 puff EVERY 6 HOURS (route: inhalation ) Med Classific ation: Respirato ry Therapy Agents amantadine HCl 100 mg tablet 04-30 00:00: 00 06-27 23:59 :00 No [id number] 1 tablet DAILY 1 tablet DAILY (route: oral) Med Classific ation: Central Nervous System Agents amoxicillin 500 mg capsule 04-30 00:00: 00 06-27 23:59 :00 No [id number] 4 capsule DIRECTED 4 capsule DIRECTED (route: oral) Med Classific ation: Anti-Infe ctive Agents Breo Ellipta 100 mcg-25 mcg/dose powder for inhalation 04-30 00:00: 00 06-27 23:59 :00 No [id number] 1 inhalat ion DAILY 1 inhalation DAILY (route: inhalation ) Med Classific ation: Respirato ry Therapy Agents clonazepam 0.5 mg tablet 04-30 00:00: 00 06-27 23:59 :00 No [id number] 1 tablet BEDTIME 1 tablet BEDTIME (route: oral) Med Classific ation: Central Nervous System Agents docusate sodium 100 mg capsule 04-30 00:00: 00 06-27 23:59 :00 No [id number] 1 capsule 2 TIMES DAILY 1 capsule 2 TIMES DAILY (route: oral) Med Classific ation: Gastroint estinal Therapy Agents Eliquis 5 mg tablet 04-30 00:00: 00 06-27 23:59 :00 No [id number] 1 tablet 2 TIMES DAILY 1 tablet 2 TIMES DAILY (route: oral) Med Classific ation: Hematolog ical Agents finasteride 5 mg tablet 04-30 00:00: 00 06-27 23:59 :00 No [id number] 1 tablet DAILY 1 tablet DAILY (route: oral) Med Classific ation: Genitouri nary Therapy gabapentin 100 mg capsule 04-30 00:00: 00 06-27 23:59 :00 No [id number] 1 capsule DAILY 1 capsule DAILY (route: oral) Med Classific ation: Central Nervous System Agents gabapentin 300 mg capsule - 00:00: 00 06-27 23:59 :00 No [id number] 1 capsule BEDTIME 1 capsule BEDTIME (route: oral) Med Classific ation: Central Nervous System Agents mirtazapine 45 mg tablet - 00:00: 00 06-27 23:59 :00 No [id number] 1 tablet BEDTIME 1 tablet BEDTIME (route: oral) Med Classific ation: Central Nervous System Agents pantoprazol e 40 mg tablet,baltazar yed release - 00:00: 00 06-27 23:59 :00 No [id number] 1 tablet DAILY 1 tablet DAILY (route: oral) Med Classific ation: Gastroint estinal Therapy Agents ropinirole 0.25 mg tablet 04-30 00:00: 00 06-27 23:59 :00 No [id number] 1-4 tablet DIRECTED 1-4 tablet DIRECTED (route: oral) Med Classific ation: Central Nervous System Agents Rytary 36.25 mg-145 mg capsule,ext ended release 04-30 00:00: 00 06-27 23:59 :00 No [id number] 2 capsule 4 TIMES DAILY 2 capsule 4 TIMES DAILY (route: oral) Med Classific ation: Central Nervous System Agents venlafaxine ER 225 mg tablet,exte nded release 24 hr - 00:00: 00 06-27 23:59 :00 No [id number] 1 tablet BEDTIME 1 tablet BEDTIME (route: oral) Med Classific ation: Central Nervous System Agents amantadine HCl 100 mg capsule 3-04 00:00: 00 Yes [id number] 1 capsule DAILY 1 capsule DAILY (route: oral) Med Classific ation: Central Nervous System Agents clonazepam 0.5 mg tablet 3-04 00:00: 00 Yes [id number] 1 tablet BEDTIME 1 tablet BEDTIME (route: oral) Med Classific ation: Central Nervous System Agents Eliquis 5 mg tablet 3-04 00:00: 00 Yes [id number] 1 tablet 2 TIMES DAILY 1 tablet 2 TIMES DAILY (route: oral) Med Classific ation: Hematolog ical Agents finasteride 5 mg tablet 06-29 00:00: 00 Yes [id number] 1 tablet DAILY 1 tablet DAILY (route: oral) Med Classific ation: Genitouri nary Therapy gabapentin 100 mg capsule 06-29 00:00: 00 Yes [id number] 1 capsule DAILY 1 capsule DAILY (route: oral) Med Classific ation: Central Nervous System Agents gabapentin 300 mg capsule 06-29 00:00: 00 Yes [id number] 1 capsule BEDTIME 1 capsule BEDTIME (route: oral) Med Classific ation: Central Nervous System Agents mirtazapine 45 mg tablet 06-29 00:00: 00 Yes [id number] 1 tablet DAILY 1 tablet DAILY (route: oral) Med Classific ation: Central Nervous System Agents pantoprazol e 40 mg tablet,baltazar yed release 06-29 00:00: 00 10-21 23:59 :00 No [id number] 1 tablet DAILY 1 tablet DAILY (route: oral) Med Classific ation: Gastroint estinal Therapy Agents ropinirole 0.25 mg tablet 06-29 00:00: 00 Yes [id number] 2 tablet DAILY 2 tablet DAILY (route: oral) Med Classific ation: Central Nervous System Agents Rytary 36.25 mg-145 mg capsule,ext ended release 06-29 00:00: 00 Yes [id number] 3 capsule 4 TIMES DAILY 3 capsule 4 TIMES DAILY (route: oral) Med Classific ation: Central Nervous System Agents venlafaxine ER 225 mg tablet,exte nded release 24 hr 06-29 00:00: 00 Yes [id number] 1 tablet DAILY 1 tablet DAILY (route: oral) Med Classific ation: Central Nervous System Agents albuterol sulfate HFA 90 mcg/actuati on aerosol inhaler 06-29 00:00: 00 Yes [id number] 2 puff EVERY 6 HOURS 2 puff EVERY 6 HOURS (route: inhalation ) Med Classific ation: Respirato ry Therapy Agents Breo Ellipta 100 mcg-25 mcg/dose powder for inhalation 3-04 00:00: 00 Yes [id number] 1 inhalat ion DAILY 1 inhalation DAILY (route: inhalation ) Med Classific ation: Respirato ry Therapy Agents pantoprazol e 40 mg tablet,baltazar yed release 3- 00:00: 00 10-21 23:59 :00 No [id number] 1 tablet 2 TIMES DAILY 1 tablet 2 TIMES DAILY (route: oral) Med Classific ation: Gastroint estinal Therapy Agents fluconazole 200 mg tablet - 00:00: 00 Yes [id number] 200 mg DAILY 200 mg DAILY (route: oral) Alternate Route: SUBLINGUA L. Med Classific ation: Anti-Infe ctive Agents Carafate 100 mg/mL oral suspension 10-26 00:00: 00 Yes [id number] 10 mL 4 TIMES DAILY 10 mL 4 TIMES DAILY (route: oral) Med Classific ation: Gastroint estinal Therapy Agents Voquezna 20 mg tablet 10-26 00:00: 00 12-03 00:58 :03.3 47 No [id number] 1 tablet 2 TIMES DAILY 1 tablet 2 TIMES DAILY (route: oral) Med Classific ation: Gastroint estinal Therapy Agents Voquezna 20 mg tablet 10-21 00:00: 00 Yes [id number] 1 tablet 2 TIMES DAILY 1 tablet [...] MAINTAIN SITUATIONAL AWARENESS AND WILL NOTIFY CLINICAL PORTRAIT PAINTER AND PHYSICIAN/PROVIDER WITH ANY CHANGE IN CONDITION. [code = SKILLED NURSE TO PERFORM ENVIRONMENTAL SAFETY RISK ASSESSMENT AND FALL RISK ASSESSMENT AND PROVIDE INSTRUCTION TO IMPLEMENT ENVIRONMENTAL SAFETY AND FALL PREVENTION STRATEGIES THROUGHOUT THE CERTIFICATION PERIOD. SKILLED NURSE WILL MAINTAIN SITUATIONAL AWARENESS AND WILL NOTIFY CLINICAL PORTRAIT PAINTER AND PHYSICIAN/PROVIDER WITH ANY CHANGE IN CONDITION.] [...] LASIX PATIENT LIVING SITUATION/CAREGIVER STATUS: [facility]SE SUMMARIZE SKILLED NEED: DISEASE [...] End Date/Time Encounter Type Admission Type Attending [facility] Care Department Encounter ID Discharge Date Discharge Status Discharge Condition Discharge Reason Percent Goals Met 2025-02-24 00:00:00 2025-04-24 00:00:00 Outpatient RECERTIFIC ATION DEMETRI SLAUGHTER [facility] [id number] 6.25
--- OUTSIDE RECORDS SUMMARY | 2025-04-23 19:00 | XMS_ITS | Clinical Summary ---
Author Organization Unknown Care Team Providers Care [employer] Supervisor Name Role Phone DARIAN DANGELO, ANYA Unavailable Unavaila aleisha CHRISTENSEN HEAD WAITER/WAITRESS BANQUET/MANAGER OF MERCHANDISING, RENAN Unavailable Unava susie SLAUGHTER RN, DEMETRI Unavailable Unavailable Payers Payer Name Policy Type Policy Number Effective Date Expira tion Date MEDICARE - [facility] - PD [id number] Problems Condition Name Condition Details Condition Category [...] 01-11 00:00: 00 01-18 23:59 :00 No [id number] 1 tablet 2 TIMES DAILY 1 tablet 2 TIMES DAILY (route: oral) Med Classific ation: Anti-Infe ctive Agents lactulose 10 gram/15 mL oral solution 01-11 00:00: 00 04-01 23:59 :00 No [id number] 30 g DAILY 30 g DAILY (route: oral) Med Classific ation: Gastroint estinal Therapy Agents Rytary 36.25 mg-145 mg capsule,ext ended release 13 00:00: 00 04-01 23:59 :00 No [id number] 4 capsule 4 TIMES DAILY 4 capsule 4 TIMES DAILY (route: oral) Med Classific ation: Central Nervous System Agents Breo Ellipta 100 mcg-25 mcg/dose powder for inhalation - 00:00: 00 04-01 23:59 :00 No [id number] 1 inhalat ion ONCE DAILY 1 inhalation ONCE DAILY (route: inhalation ) Med Classific ation: Respirato ry Therapy Agents mirtazapine 45 mg tablet 12-12 00:00: 00 04-01 23:59 :00 No [id number] 1 tablet DAILY 1 tablet DAILY (route: oral) Med Classific ation: Central Nervous System Agents docusate sodium 100 mg capsule 16 00:00: 00 04-01 23:59 :00 No [id number] 1 capsule 2 TIMES DAILY 1 capsule 2 TIMES DAILY (route: oral) Med Classific ation: Gastroint estinal Therapy Agents Eliquis 5 mg tablet 10-26 00:00: 00 04-01 23:59 :00 No [id number] 1 tablet 2 TIMES DAILY 1 tablet 2 TIMES DAILY (route: oral) Med Classific ation: Hematolog ical Agents ferrous sulfate 325 mg (65 mg iron) tablet 10-26 00:00: 00 04-01 23:59 :00 No [id number] 1 tablet DAILY 1 tablet DAILY (route: oral) Med Classific ation: Electroly te Balance-N utritiona l Products finasteride 5 mg tablet 10-26 00:00: 00 04-01 23:59 :00 No [id number] 1 tablet DAILY 1 tablet DAILY (route: oral) Med Classific ation: Genitouri nary Therapy furosemide 40 mg tablet 10-26 00:00: 00 04-01 23:59 :00 No [id number] 1 tablet 2 TIMES DAILY 1 tablet 2 TIMES DAILY (route: oral) Med Classific ation: Cardiovas cular Therapy Agents magnesium 400 mg (as magnesium oxide) tablet 10-26 00:00: 00 04-01 23:59 :00 No [id number] 1 tablet DAILY 1 tablet DAILY (route: oral) Med Classific ation: Electroly te Balance-N utritiona l Products prednisolon e acetate 1 % eye drops,suspe nsion 10-26 00:00: 00 04-01 23:59 :00 No [id number] 1 drops 3 TIMES DAILY 1 drops 3 TIMES DAILY (route: ophthalmic (eye)) Med Classific ation: Ophthalmi c Agents ropinirole 0.25 mg tablet 09-28 00:00: 00 04-01 23:59 :00 No [id number] Per instruc tions DIRECTED Per instructio ns DIRECTED (route: oral) Med Classific ation: Central Nervous System Agents venlafaxine ER 225 mg tablet,exte nded release 24 hr 10-26 00:00: 00 04-01 23:59 :00 No [id number] 1 tablet DAILY 1 tablet DAILY (route: oral) Med Classific ation: Central Nervous System Agents Vitamin D3 125 mcg (5,000 unit) tablet 09-28 00:00: 00 04-01 23:59 :00 No [id number] 1 tablet DAILY 1 tablet DAILY (route: oral) Med Classific ation: Electroly te Balance-N utritiona l Products clonazepam 0.5 mg tablet 2023-04 0-11 00:00: 00 04-01 23:59 :00 No [id number] Per instruc tions BEDTIME Per instructio ns BEDTIME (route: oral) Med Classific ation: Central Nervous System Agents acetaminoph en 325 mg tablet 04-30 00:00: 00 06-27 23:59 :00 No [id number] 2 tablet EVERY 4 HOURS 2 tablet EVERY 4 HOURS (route: oral) Med Classific ation: Analgesic , Anti-infl ammatory or Antipyret ic albuterol sulfate HFA 90 mcg/actuati on aerosol inhaler 04-30 00:00: 00 06-27 23:59 :00 No [id number] 2 puff EVERY 6 HOURS 2 puff EVERY 6 HOURS (route: inhalation ) Med Classific ation: Respirato ry Therapy Agents amantadine HCl 100 mg tablet 04-30 00:00: 00 06-27 23:59 :00 No [id number] 1 tablet DAILY 1 tablet DAILY (route: oral) Med Classific ation: Central Nervous System Agents amoxicillin 500 mg capsule 04-30 00:00: 00 06-27 23:59 :00 No [id number] 4 capsule DIRECTED 4 capsule DIRECTED (route: oral) Med Classific ation: Anti-Infe ctive Agents Breo Ellipta 100 mcg-25 mcg/dose powder for inhalation 04-30 00:00: 00 06-27 23:59 :00 No [id number] 1 inhalat ion DAILY 1 inhalation DAILY (route: inhalation ) Med Classific ation: Respirato ry Therapy Agents clonazepam 0.5 mg tablet 04-30 00:00: 00 06-27 23:59 :00 No [id number] 1 tablet BEDTIME 1 tablet BEDTIME (route: oral) Med Classific ation: Central Nervous System Agents docusate sodium 100 mg capsule 04-30 00:00: 00 06-27 23:59 :00 No [id number] 1 capsule 2 TIMES DAILY 1 capsule 2 TIMES DAILY (route: oral) Med Classific ation: Gastroint estinal Therapy Agents Eliquis 5 mg tablet 04-30 00:00: 00 06-27 23:59 :00 No [id number] 1 tablet 2 TIMES DAILY 1 tablet 2 TIMES DAILY (route: oral) Med Classific ation: Hematolog ical Agents finasteride 5 mg tablet 04-30 00:00: 00 06-27 23:59 :00 No [id number] 1 tablet DAILY 1 tablet DAILY (route: oral) Med Classific ation: Genitouri nary Therapy gabapentin 100 mg capsule 04-30 00:00: 00 06-27 23:59 :00 No [id number] 1 capsule DAILY 1 capsule DAILY (route: oral) Med Classific ation: Central Nervous System Agents gabapentin 300 mg capsule - 00:00: 00 06-27 23:59 :00 No [id number] 1 capsule BEDTIME 1 capsule BEDTIME (route: oral) Med Classific ation: Central Nervous System Agents mirtazapine 45 mg tablet - 00:00: 00 06-27 23:59 :00 No [id number] 1 tablet BEDTIME 1 tablet BEDTIME (route: oral) Med Classific ation: Central Nervous System Agents pantoprazol e 40 mg tablet,baltazar yed release - 00:00: 00 06-27 23:59 :00 No [id number] 1 tablet DAILY 1 tablet DAILY (route: oral) Med Classific ation: Gastroint estinal Therapy Agents ropinirole 0.25 mg tablet 04-30 00:00: 00 06-27 23:59 :00 No [id number] 1-4 tablet DIRECTED 1-4 tablet DIRECTED (route: oral) Med Classific ation: Central Nervous System Agents Rytary 36.25 mg-145 mg capsule,ext ended release 04-30 00:00: 00 06-27 23:59 :00 No [id number] 2 capsule 4 TIMES DAILY 2 capsule 4 TIMES DAILY (route: oral) Med Classific ation: Central Nervous System Agents venlafaxine ER 225 mg tablet,exte nded release 24 hr - 00:00: 00 06-27 23:59 :00 No [id number] 1 tablet BEDTIME 1 tablet BEDTIME (route: oral) Med Classific ation: Central Nervous System Agents amantadine HCl 100 mg capsule 3-04 00:00: 00 Yes [id number] 1 capsule DAILY 1 capsule DAILY (route: oral) Med Classific ation: Central Nervous System Agents clonazepam 0.5 mg tablet 3-04 00:00: 00 Yes [id number] 1 tablet BEDTIME 1 tablet BEDTIME (route: oral) Med Classific ation: Central Nervous System Agents Eliquis 5 mg tablet 3-04 00:00: 00 Yes [id number] 1 tablet 2 TIMES DAILY 1 tablet 2 TIMES DAILY (route: oral) Med Classific ation: Hematolog ical Agents finasteride 5 mg tablet 06-29 00:00: 00 Yes [id number] 1 tablet DAILY 1 tablet DAILY (route: oral) Med Classific ation: Genitouri nary Therapy gabapentin 100 mg capsule 06-29 00:00: 00 Yes [id number] 1 capsule DAILY 1 capsule DAILY (route: oral) Med Classific ation: Central Nervous System Agents gabapentin 300 mg capsule 06-29 00:00: 00 Yes [id number] 1 capsule BEDTIME 1 capsule BEDTIME (route: oral) Med Classific ation: Central Nervous System Agents mirtazapine 45 mg tablet 06-29 00:00: 00 Yes [id number] 1 tablet DAILY 1 tablet DAILY (route: oral) Med Classific ation: Central Nervous System Agents pantoprazol e 40 mg tablet,baltazar yed release 06-29 00:00: 00 10-21 23:59 :00 No [id number] 1 tablet DAILY 1 tablet DAILY (route: oral) Med Classific ation: Gastroint estinal Therapy Agents ropinirole 0.25 mg tablet 06-29 00:00: 00 Yes [id number] 2 tablet DAILY 2 tablet DAILY (route: oral) Med Classific ation: Central Nervous System Agents Rytary 36.25 mg-145 mg capsule,ext ended release 06-29 00:00: 00 Yes [id number] 3 capsule 4 TIMES DAILY 3 capsule 4 TIMES DAILY (route: oral) Med Classific ation: Central Nervous System Agents venlafaxine ER 225 mg tablet,exte nded release 24 hr 06-29 00:00: 00 Yes [id number] 1 tablet DAILY 1 tablet DAILY (route: oral) Med Classific ation: Central Nervous System Agents albuterol sulfate HFA 90 mcg/actuati on aerosol inhaler 06-29 00:00: 00 Yes [id number] 2 puff EVERY 6 HOURS 2 puff EVERY 6 HOURS (route: inhalation ) Med Classific ation: Respirato ry Therapy Agents Breo Ellipta 100 mcg-25 mcg/dose powder for inhalation 3-04 00:00: 00 Yes [id number] 1 inhalat ion DAILY 1 inhalation DAILY (route: inhalation ) Med Classific ation: Respirato ry Therapy Agents pantoprazol e 40 mg tablet,baltazar yed release 3- 00:00: 00 10-21 23:59 :00 No [id number] 1 tablet 2 TIMES DAILY 1 tablet 2 TIMES DAILY (route: oral) Med Classific ation: Gastroint estinal Therapy Agents fluconazole 200 mg tablet - 00:00: 00 Yes [id number] 200 mg DAILY 200 mg DAILY (route: oral) Alternate Route: SUBLINGUA L. Med Classific ation: Anti-Infe ctive Agents Carafate 100 mg/mL oral suspension 10-26 00:00: 00 Yes [id number] 10 mL 4 TIMES DAILY 10 mL 4 TIMES DAILY (route: oral) Med Classific ation: Gastroint estinal Therapy Agents Voquezna 20 mg tablet 10-26 00:00: 00 12-03 00:58 :03.3 47 No [id number] 1 tablet 2 TIMES DAILY 1 tablet 2 TIMES DAILY (route: oral) Med Classific ation: Gastroint estinal Therapy Agents Voquezna 20 mg tablet 10-21 00:00: 00 Yes [id number] 1 tablet 2 TIMES DAILY 1 tablet [...] BLOCKAGE/LEAKAGE, HEAVY SEDIMENT. 1 - 3 PRN SHELTER VISITS FOR CATHETER CHANGE(S) AND/OR TROUBLESHOOTING. [code = SKILLED NURSE TO INSTRUCT PATIENT/CAREGIVER AND PERFORM CARE AND MANAGEMENT OF INDWELLING URINARY CATHETER. [place] CATHETER INSERTION WITH 18 FR CATHETER WITH 10 ML BALLOON VIA STERILE TECHNIQUE, CHANGE Q 4 WEEKS AND PRN FOR LEAKING OR MALFUNCTIONING CATHETER. IRRIGATE URINARY CATHETER WITH 30-60CC NORMAL SALINE PRN BLOCKAGE/LEAKAGE, HEAVY SEDIMENT. 1 - 3 PRN SHELTER VISITS FOR CATHETER CHANGE(S) AND/OR TROUBLESHOOTING.] Future [...] MAINTAIN SITUATIONAL AWARENESS AND WILL NOTIFY CLINICAL BLINDSTITCH LINING FELLER AND PHYSICIAN/PROVIDER WITH ANY CHANGE IN CONDITION. [code = SKILLED NURSE TO PERFORM ENVIRONMENTAL SAFETY RISK ASSESSMENT AND FALL RISK ASSESSMENT AND PROVIDE INSTRUCTION TO IMPLEMENT ENVIRONMENTAL SAFETY AND FALL PREVENTION STRATEGIES THROUGHOUT THE CERTIFICATION PERIOD. SKILLED NURSE WILL MAINTAIN SITUATIONAL AWARENESS AND WILL NOTIFY CLINICAL BLINDSTITCH LINING FELLER AND PHYSICIAN/PROVIDER WITH ANY CHANGE IN CONDITION.] [...] PATIENT LIVING SITUATION/CAREGIVER STATUS[facility] SKILLED NEED: [...] CARE WILL BE ESTABLISHED THAT MEETS PATIENT'S SHELTER NEEDS AND INCLUDES PATIENT GOAL FOR HOME [...] 2025-04-24 00:00:00 Outpatient RECERTIFIC ATION DEMETRI SLAUGHTER [facility] [id number] 6.25
--- OUTSIDE RECORDS SUMMARY | 2025-04-23 19:00 | XMS_ITS | Clinical Summary ---
Author Organization Unknown Care Team Providers Care Inventory Coordinator Name Role Phone DARIAN DANGELO, ANYA Unavailable Unavaila aleisha CHRISTENSEN ELECTRONIC PLOTTING SYSTEM OPERATOR/WRAPAROUND FACILITATOR, RENAN Unavailable Unava susie SLAUGHTER RN, DEMETRI Unavailable Unavailable Payers Payer Name Policy Type Policy Number Effective Date Expira tion Date MEDICARE - [facility] [place] - PD [id number] Problems Condition Name Condition Details Condition Category [...] 01-11 00:00: 00 01-18 23:59 :00 No [id number] 1 tablet 2 TIMES DAILY 1 tablet 2 TIMES DAILY (route: oral) Med Classific ation: Anti-Infe ctive Agents lactulose 10 gram/15 mL oral solution 01-11 00:00: 00 04-01 23:59 :00 No [id number] 30 g DAILY 30 g DAILY (route: oral) Med Classific ation: Gastroint estinal Therapy Agents Rytary 36.25 mg-145 mg capsule,ext ended release 13 00:00: 00 04-01 23:59 :00 No [id number] 4 capsule 4 TIMES DAILY 4 capsule 4 TIMES DAILY (route: oral) Med Classific ation: Central Nervous System Agents Breo Ellipta 100 mcg-25 mcg/dose powder for inhalation - 00:00: 00 04-01 23:59 :00 No [id number] 1 inhalat ion ONCE DAILY 1 inhalation ONCE DAILY (route: inhalation ) Med Classific ation: Respirato ry Therapy Agents mirtazapine 45 mg tablet 12-12 00:00: 00 04-01 23:59 :00 No [id number] 1 tablet DAILY 1 tablet DAILY (route: oral) Med Classific ation: Central Nervous System Agents docusate sodium 100 mg capsule 16 00:00: 00 04-01 23:59 :00 No [id number] 1 capsule 2 TIMES DAILY 1 capsule 2 TIMES DAILY (route: oral) Med Classific ation: Gastroint estinal Therapy Agents Eliquis 5 mg tablet 10-26 00:00: 00 04-01 23:59 :00 No [id number] 1 tablet 2 TIMES DAILY 1 tablet 2 TIMES DAILY (route: oral) Med Classific ation: Hematolog ical Agents ferrous sulfate 325 mg (65 mg iron) tablet 10-26 00:00: 00 04-01 23:59 :00 No [id number] 1 tablet DAILY 1 tablet DAILY (route: oral) Med Classific ation: Electroly te Balance-N utritiona l Products finasteride 5 mg tablet 10-26 00:00: 00 04-01 23:59 :00 No [id number] 1 tablet DAILY 1 tablet DAILY (route: oral) Med Classific ation: Genitouri nary Therapy furosemide 40 mg tablet 10-26 00:00: 00 04-01 23:59 :00 No [id number] 1 tablet 2 TIMES DAILY 1 tablet 2 TIMES DAILY (route: oral) Med Classific ation: Cardiovas cular Therapy Agents magnesium 400 mg (as magnesium oxide) tablet 10-26 00:00: 00 04-01 23:59 :00 No [id number] 1 tablet DAILY 1 tablet DAILY (route: oral) Med Classific ation: Electroly te Balance-N utritiona l Products prednisolon e acetate 1 % eye drops,suspe nsion 10-26 00:00: 00 04-01 23:59 :00 No [id number] 1 drops 3 TIMES DAILY 1 drops 3 TIMES DAILY (route: ophthalmic (eye)) Med Classific ation: Ophthalmi c Agents ropinirole 0.25 mg tablet 09-28 00:00: 00 04-01 23:59 :00 No [id number] Per instruc tions DIRECTED Per instructio ns DIRECTED (route: oral) Med Classific ation: Central Nervous System Agents venlafaxine ER 225 mg tablet,exte nded release 24 hr 10-26 00:00: 00 04-01 23:59 :00 No [id number] 1 tablet DAILY 1 tablet DAILY (route: oral) Med Classific ation: Central Nervous System Agents Vitamin D3 125 mcg (5,000 unit) tablet 09-28 00:00: 00 04-01 23:59 :00 No [id number] 1 tablet DAILY 1 tablet DAILY (route: oral) Med Classific ation: Electroly te Balance-N utritiona l Products clonazepam 0.5 mg tablet 2023-04 0-11 00:00: 00 04-01 23:59 :00 No [id number] Per instruc tions BEDTIME Per instructio ns BEDTIME (route: oral) Med Classific ation: Central Nervous System Agents acetaminoph en 325 mg tablet 04-30 00:00: 00 06-27 23:59 :00 No [id number] 2 tablet EVERY 4 HOURS 2 tablet EVERY 4 HOURS (route: oral) Med Classific ation: Analgesic , Anti-infl ammatory or Antipyret ic albuterol sulfate HFA 90 mcg/actuati on aerosol inhaler 04-30 00:00: 00 06-27 23:59 :00 No [id number] 2 puff EVERY 6 HOURS 2 puff EVERY 6 HOURS (route: inhalation ) Med Classific ation: Respirato ry Therapy Agents amantadine HCl 100 mg tablet 04-30 00:00: 00 06-27 23:59 :00 No [id number] 1 tablet DAILY 1 tablet DAILY (route: oral) Med Classific ation: Central Nervous System Agents amoxicillin 500 mg capsule 04-30 00:00: 00 06-27 23:59 :00 No [id number] 4 capsule DIRECTED 4 capsule DIRECTED (route: oral) Med Classific ation: Anti-Infe ctive Agents Breo Ellipta 100 mcg-25 mcg/dose powder for inhalation 04-30 00:00: 00 06-27 23:59 :00 No [id number] 1 inhalat ion DAILY 1 inhalation DAILY (route: inhalation ) Med Classific ation: Respirato ry Therapy Agents clonazepam 0.5 mg tablet 04-30 00:00: 00 06-27 23:59 :00 No [id number] 1 tablet BEDTIME 1 tablet BEDTIME (route: oral) Med Classific ation: Central Nervous System Agents docusate sodium 100 mg capsule 04-30 00:00: 00 06-27 23:59 :00 No [id number] 1 capsule 2 TIMES DAILY 1 capsule 2 TIMES DAILY (route: oral) Med Classific ation: Gastroint estinal Therapy Agents Eliquis 5 mg tablet 04-30 00:00: 00 06-27 23:59 :00 No [id number] 1 tablet 2 TIMES DAILY 1 tablet 2 TIMES DAILY (route: oral) Med Classific ation: Hematolog ical Agents finasteride 5 mg tablet 04-30 00:00: 00 06-27 23:59 :00 No [id number] 1 tablet DAILY 1 tablet DAILY (route: oral) Med Classific ation: Genitouri nary Therapy gabapentin 100 mg capsule 04-30 00:00: 00 06-27 23:59 :00 No [id number] 1 capsule DAILY 1 capsule DAILY (route: oral) Med Classific ation: Central Nervous System Agents gabapentin 300 mg capsule - 00:00: 00 06-27 23:59 :00 No [id number] 1 capsule BEDTIME 1 capsule BEDTIME (route: oral) Med Classific ation: Central Nervous System Agents mirtazapine 45 mg tablet - 00:00: 00 06-27 23:59 :00 No [id number] 1 tablet BEDTIME 1 tablet BEDTIME (route: oral) Med Classific ation: Central Nervous System Agents pantoprazol e 40 mg tablet,baltazar yed release - 00:00: 00 06-27 23:59 :00 No [id number] 1 tablet DAILY 1 tablet DAILY (route: oral) Med Classific ation: Gastroint estinal Therapy Agents ropinirole 0.25 mg tablet 04-30 00:00: 00 06-27 23:59 :00 No [id number] 1-4 tablet DIRECTED 1-4 tablet DIRECTED (route: oral) Med Classific ation: Central Nervous System Agents Rytary 36.25 mg-145 mg capsule,ext ended release 04-30 00:00: 00 06-27 23:59 :00 No [id number] 2 capsule 4 TIMES DAILY 2 capsule 4 TIMES DAILY (route: oral) Med Classific ation: Central Nervous System Agents venlafaxine ER 225 mg tablet,exte nded release 24 hr - 00:00: 00 06-27 23:59 :00 No [id number] 1 tablet BEDTIME 1 tablet BEDTIME (route: oral) Med Classific ation: Central Nervous System Agents amantadine HCl 100 mg capsule 3-04 00:00: 00 Yes [id number] 1 capsule DAILY 1 capsule DAILY (route: oral) Med Classific ation: Central Nervous System Agents clonazepam 0.5 mg tablet 3-04 00:00: 00 Yes [id number] 1 tablet BEDTIME 1 tablet BEDTIME (route: oral) Med Classific ation: Central Nervous System Agents Eliquis 5 mg tablet 3-04 00:00: 00 Yes [id number] 1 tablet 2 TIMES DAILY 1 tablet 2 TIMES DAILY (route: oral) Med Classific ation: Hematolog ical Agents finasteride 5 mg tablet 06-29 00:00: 00 Yes [id number] 1 tablet DAILY 1 tablet DAILY (route: oral) Med Classific ation: Genitouri nary Therapy gabapentin 100 mg capsule 06-29 00:00: 00 Yes [id number] 1 capsule DAILY 1 capsule DAILY (route: oral) Med Classific ation: Central Nervous System Agents gabapentin 300 mg capsule 06-29 00:00: 00 Yes [id number] 1 capsule BEDTIME 1 capsule BEDTIME (route: oral) Med Classific ation: Central Nervous System Agents mirtazapine 45 mg tablet 06-29 00:00: 00 Yes [id number] 1 tablet DAILY 1 tablet DAILY (route: oral) Med Classific ation: Central Nervous System Agents pantoprazol e 40 mg tablet,baltazar yed release 06-29 00:00: 00 10-21 23:59 :00 No [id number] 1 tablet DAILY 1 tablet DAILY (route: oral) Med Classific ation: Gastroint estinal Therapy Agents ropinirole 0.25 mg tablet 06-29 00:00: 00 Yes [id number] 2 tablet DAILY 2 tablet DAILY (route: oral) Med Classific ation: Central Nervous System Agents Rytary 36.25 mg-145 mg capsule,ext ended release 06-29 00:00: 00 Yes [id number] 3 capsule 4 TIMES DAILY 3 capsule 4 TIMES DAILY (route: oral) Med Classific ation: Central Nervous System Agents venlafaxine ER 225 mg tablet,exte nded release 24 hr 06-29 00:00: 00 Yes [id number] 1 tablet DAILY 1 tablet DAILY (route: oral) Med Classific ation: Central Nervous System Agents albuterol sulfate HFA 90 mcg/actuati on aerosol inhaler 06-29 00:00: 00 Yes [id number] 2 puff EVERY 6 HOURS 2 puff EVERY 6 HOURS (route: inhalation ) Med Classific ation: Respirato ry Therapy Agents Breo Ellipta 100 mcg-25 mcg/dose powder for inhalation 3-04 00:00: 00 Yes [id number] 1 inhalat ion DAILY 1 inhalation DAILY (route: inhalation ) Med Classific ation: Respirato ry Therapy Agents pantoprazol e 40 mg tablet,baltazar yed release 3- 00:00: 00 10-21 23:59 :00 No [id number] 1 tablet 2 TIMES DAILY 1 tablet 2 TIMES DAILY (route: oral) Med Classific ation: Gastroint estinal Therapy Agents fluconazole 200 mg tablet - 00:00: 00 Yes [id number] 200 mg DAILY 200 mg DAILY (route: oral) Alternate Route: SUBLINGUA L. Med Classific ation: Anti-Infe ctive Agents Carafate 100 mg/mL oral suspension 10-26 00:00: 00 Yes [id number] 10 mL 4 TIMES DAILY 10 mL 4 TIMES DAILY (route: oral) Med Classific ation: Gastroint estinal Therapy Agents Voquezna 20 mg tablet 10-26 00:00: 00 12-03 00:58 :03.3 47 No [id number] 1 tablet 2 TIMES DAILY 1 tablet 2 TIMES DAILY (route: oral) Med Classific ation: Gastroint estinal Therapy Agents Voquezna 20 mg tablet 10-21 00:00: 00 Yes [id number] 1 tablet 2 TIMES DAILY 1 tablet [...] MAINTAIN SITUATIONAL AWARENESS AND WILL NOTIFY CLINICAL KITCHENHAND AND PHYSICIAN/PROVIDER WITH ANY CHANGE IN CONDITION. [code = SKILLED NURSE TO PERFORM ENVIRONMENTAL SAFETY RISK ASSESSMENT AND FALL RISK ASSESSMENT AND PROVIDE INSTRUCTION TO IMPLEMENT ENVIRONMENTAL SAFETY AND FALL PREVENTION STRATEGIES THROUGHOUT THE CERTIFICATION PERIOD. SKILLED NURSE WILL MAINTAIN SITUATIONAL AWARENESS AND WILL NOTIFY CLINICAL KITCHENHAND AND PHYSICIAN/PROVIDER WITH ANY CHANGE IN CONDITION.] [...] LASIX PATIENT LIVING SITUATION/CAREGIVER STATUS: [facility] SKILL[facility] NEED: [...] End Date/Time Encounter Type Admission Type Attending [facility] Care Department Encounter ID Discharge Date Discharge Status Discharge Condition Discharge Reason Percent Goals Met 2025-02-24 00:00:00 2025-04-24 00:00:00 Outpatient RECERTIFIC ATION DEMETRI SLAUGHTER [facility] [id number] 6.25
--- OUTSIDE RECORDS SUMMARY | 2025-04-23 19:00 | XMS_ITS | Clinical Summary ---
Author Organization Unknown Care Team Providers Care Separator Operator Name Role Phone DARIAN DANGELO, ANYA Unavailable Unavaila aleisha CHRISTENSEN BUMPER MACHINE OPERATOR/SPECIAL EDUCATION SUPERVISOR, RENAN Unavailable Unava susie SLAUGHTER RN, DEMETRI Unavailable Unavailable Payers Payer Name Policy Type Policy Number Effective Date Expira tion Date MEDICARE - [facility] - PD [id number] Problems Condition Name Condition Details Condition Category [...] 01-11 00:00: 00 01-18 23:59 :00 No [id number] 1 tablet 2 TIMES DAILY 1 tablet 2 TIMES DAILY (route: oral) Med Classific ation: Anti-Infe ctive Agents lactulose 10 gram/15 mL oral solution 01-11 00:00: 00 04-01 23:59 :00 No [id number] 30 g DAILY 30 g DAILY (route: oral) Med Classific ation: Gastroint estinal Therapy Agents Rytary 36.25 mg-145 mg capsule,ext ended release 13 00:00: 00 04-01 23:59 :00 No [id number] 4 capsule 4 TIMES DAILY 4 capsule 4 TIMES DAILY (route: oral) Med Classific ation: Central Nervous System Agents Breo Ellipta 100 mcg-25 mcg/dose powder for inhalation - 00:00: 00 04-01 23:59 :00 No [id number] 1 inhalat ion ONCE DAILY 1 inhalation ONCE DAILY (route: inhalation ) Med Classific ation: Respirato ry Therapy Agents mirtazapine 45 mg tablet 12-12 00:00: 00 04-01 23:59 :00 No [id number] 1 tablet DAILY 1 tablet DAILY (route: oral) Med Classific ation: Central Nervous System Agents docusate sodium 100 mg capsule 16 00:00: 00 04-01 23:59 :00 No [id number] 1 capsule 2 TIMES DAILY 1 capsule 2 TIMES DAILY (route: oral) Med Classific ation: Gastroint estinal Therapy Agents Eliquis 5 mg tablet 10-26 00:00: 00 04-01 23:59 :00 No [id number] 1 tablet 2 TIMES DAILY 1 tablet 2 TIMES DAILY (route: oral) Med Classific ation: Hematolog ical Agents ferrous sulfate 325 mg (65 mg iron) tablet 10-26 00:00: 00 04-01 23:59 :00 No [id number] 1 tablet DAILY 1 tablet DAILY (route: oral) Med Classific ation: Electroly te Balance-N utritiona l Products finasteride 5 mg tablet 10-26 00:00: 00 04-01 23:59 :00 No [id number] 1 tablet DAILY 1 tablet DAILY (route: oral) Med Classific ation: Genitouri nary Therapy furosemide 40 mg tablet 10-26 00:00: 00 04-01 23:59 :00 No [id number] 1 tablet 2 TIMES DAILY 1 tablet 2 TIMES DAILY (route: oral) Med Classific ation: Cardiovas cular Therapy Agents magnesium 400 mg (as magnesium oxide) tablet 10-26 00:00: 00 04-01 23:59 :00 No [id number] 1 tablet DAILY 1 tablet DAILY (route: oral) Med Classific ation: Electroly te Balance-N utritiona l Products prednisolon e acetate 1 % eye drops,suspe nsion 10-26 00:00: 00 04-01 23:59 :00 No [id number] 1 drops 3 TIMES DAILY 1 drops 3 TIMES DAILY (route: ophthalmic (eye)) Med Classific ation: Ophthalmi c Agents ropinirole 0.25 mg tablet 09-28 00:00: 00 04-01 23:59 :00 No [id number] Per instruc tions DIRECTED Per instructio ns DIRECTED (route: oral) Med Classific ation: Central Nervous System Agents venlafaxine ER 225 mg tablet,exte nded release 24 hr 10-26 00:00: 00 04-01 23:59 :00 No [id number] 1 tablet DAILY 1 tablet DAILY (route: oral) Med Classific ation: Central Nervous System Agents Vitamin D3 125 mcg (5,000 unit) tablet 09-28 00:00: 00 04-01 23:59 :00 No [id number] 1 tablet DAILY 1 tablet DAILY (route: oral) Med Classific ation: Electroly te Balance-N utritiona l Products clonazepam 0.5 mg tablet 2023-04 0-11 00:00: 00 04-01 23:59 :00 No [id number] Per instruc tions BEDTIME Per instructio ns BEDTIME (route: oral) Med Classific ation: Central Nervous System Agents acetaminoph en 325 mg tablet 04-30 00:00: 00 06-27 23:59 :00 No [id number] 2 tablet EVERY 4 HOURS 2 tablet EVERY 4 HOURS (route: oral) Med Classific ation: Analgesic , Anti-infl ammatory or Antipyret ic albuterol sulfate HFA 90 mcg/actuati on aerosol inhaler 04-30 00:00: 00 06-27 23:59 :00 No [id number] 2 puff EVERY 6 HOURS 2 puff EVERY 6 HOURS (route: inhalation ) Med Classific ation: Respirato ry Therapy Agents amantadine HCl 100 mg tablet 04-30 00:00: 00 06-27 23:59 :00 No [id number] 1 tablet DAILY 1 tablet DAILY (route: oral) Med Classific ation: Central Nervous System Agents amoxicillin 500 mg capsule 04-30 00:00: 00 06-27 23:59 :00 No [id number] 4 capsule DIRECTED 4 capsule DIRECTED (route: oral) Med Classific ation: Anti-Infe ctive Agents Breo Ellipta 100 mcg-25 mcg/dose powder for inhalation 04-30 00:00: 00 06-27 23:59 :00 No [id number] 1 inhalat ion DAILY 1 inhalation DAILY (route: inhalation ) Med Classific ation: Respirato ry Therapy Agents clonazepam 0.5 mg tablet 04-30 00:00: 00 06-27 23:59 :00 No [id number] 1 tablet BEDTIME 1 tablet BEDTIME (route: oral) Med Classific ation: Central Nervous System Agents docusate sodium 100 mg capsule 04-30 00:00: 00 06-27 23:59 :00 No [id number] 1 capsule 2 TIMES DAILY 1 capsule 2 TIMES DAILY (route: oral) Med Classific ation: Gastroint estinal Therapy Agents Eliquis 5 mg tablet 04-30 00:00: 00 06-27 23:59 :00 No [id number] 1 tablet 2 TIMES DAILY 1 tablet 2 TIMES DAILY (route: oral) Med Classific ation: Hematolog ical Agents finasteride 5 mg tablet 04-30 00:00: 00 06-27 23:59 :00 No [id number] 1 tablet DAILY 1 tablet DAILY (route: oral) Med Classific ation: Genitouri nary Therapy gabapentin 100 mg capsule 04-30 00:00: 00 06-27 23:59 :00 No [id number] 1 capsule DAILY 1 capsule DAILY (route: oral) Med Classific ation: Central Nervous System Agents gabapentin 300 mg capsule - 00:00: 00 06-27 23:59 :00 No [id number] 1 capsule BEDTIME 1 capsule BEDTIME (route: oral) Med Classific ation: Central Nervous System Agents mirtazapine 45 mg tablet - 00:00: 00 06-27 23:59 :00 No [id number] 1 tablet BEDTIME 1 tablet BEDTIME (route: oral) Med Classific ation: Central Nervous System Agents pantoprazol e 40 mg tablet,baltazar yed release - 00:00: 00 06-27 23:59 :00 No [id number] 1 tablet DAILY 1 tablet DAILY (route: oral) Med Classific ation: Gastroint estinal Therapy Agents ropinirole 0.25 mg tablet 04-30 00:00: 00 06-27 23:59 :00 No [id number] 1-4 tablet DIRECTED 1-4 tablet DIRECTED (route: oral) Med Classific ation: Central Nervous System Agents Rytary 36.25 mg-145 mg capsule,ext ended release 04-30 00:00: 00 06-27 23:59 :00 No [id number] 2 capsule 4 TIMES DAILY 2 capsule 4 TIMES DAILY (route: oral) Med Classific ation: Central Nervous System Agents venlafaxine ER 225 mg tablet,exte nded release 24 hr - 00:00: 00 06-27 23:59 :00 No [id number] 1 tablet BEDTIME 1 tablet BEDTIME (route: oral) Med Classific ation: Central Nervous System Agents amantadine HCl 100 mg capsule 3-04 00:00: 00 Yes [id number] 1 capsule DAILY 1 capsule DAILY (route: oral) Med Classific ation: Central Nervous System Agents clonazepam 0.5 mg tablet 3-04 00:00: 00 Yes [id number] 1 tablet BEDTIME 1 tablet BEDTIME (route: oral) Med Classific ation: Central Nervous System Agents Eliquis 5 mg tablet 3-04 00:00: 00 Yes [id number] 1 tablet 2 TIMES DAILY 1 tablet 2 TIMES DAILY (route: oral) Med Classific ation: Hematolog ical Agents finasteride 5 mg tablet 06-29 00:00: 00 Yes [id number] 1 tablet DAILY 1 tablet DAILY (route: oral) Med Classific ation: Genitouri nary Therapy gabapentin 100 mg capsule 06-29 00:00: 00 Yes [id number] 1 capsule DAILY 1 capsule DAILY (route: oral) Med Classific ation: Central Nervous System Agents gabapentin 300 mg capsule 06-29 00:00: 00 Yes [id number] 1 capsule BEDTIME 1 capsule BEDTIME (route: oral) Med Classific ation: Central Nervous System Agents mirtazapine 45 mg tablet 06-29 00:00: 00 Yes [id number] 1 tablet DAILY 1 tablet DAILY (route: oral) Med Classific ation: Central Nervous System Agents pantoprazol e 40 mg tablet,baltazar yed release 06-29 00:00: 00 10-21 23:59 :00 No [id number] 1 tablet DAILY 1 tablet DAILY (route: oral) Med Classific ation: Gastroint estinal Therapy Agents ropinirole 0.25 mg tablet 06-29 00:00: 00 Yes [id number] 2 tablet DAILY 2 tablet DAILY (route: oral) Med Classific ation: Central Nervous System Agents Rytary 36.25 mg-145 mg capsule,ext ended release 06-29 00:00: 00 Yes [id number] 3 capsule 4 TIMES DAILY 3 capsule 4 TIMES DAILY (route: oral) Med Classific ation: Central Nervous System Agents venlafaxine ER 225 mg tablet,exte nded release 24 hr 06-29 00:00: 00 Yes [id number] 1 tablet DAILY 1 tablet DAILY (route: oral) Med Classific ation: Central Nervous System Agents albuterol sulfate HFA 90 mcg/actuati on aerosol inhaler 06-29 00:00: 00 Yes [id number] 2 puff EVERY 6 HOURS 2 puff EVERY 6 HOURS (route: inhalation ) Med Classific ation: Respirato ry Therapy Agents Breo Ellipta 100 mcg-25 mcg/dose powder for inhalation 3-04 00:00: 00 Yes [id number] 1 inhalat ion DAILY 1 inhalation DAILY (route: inhalation ) Med Classific ation: Respirato ry Therapy Agents pantoprazol e 40 mg tablet,baltazar yed release 3- 00:00: 00 10-21 23:59 :00 No [id number] 1 tablet 2 TIMES DAILY 1 tablet 2 TIMES DAILY (route: oral) Med Classific ation: Gastroint estinal Therapy Agents fluconazole 200 mg tablet - 00:00: 00 Yes [id number] 200 mg DAILY 200 mg DAILY (route: oral) Alternate Route: SUBLINGUA L. Med Classific ation: Anti-Infe ctive Agents Carafate 100 mg/mL oral suspension 10-26 00:00: 00 Yes [id number] 10 mL 4 TIMES DAILY 10 mL 4 TIMES DAILY (route: oral) Med Classific ation: Gastroint estinal Therapy Agents Voquezna 20 mg tablet 10-26 00:00: 00 12-03 00:58 :03.3 47 No [id number] 1 tablet 2 TIMES DAILY 1 tablet 2 TIMES DAILY (route: oral) Med Classific ation: Gastroint estinal Therapy Agents Voquezna 20 mg tablet 10-21 00:00: 00 Yes [id number] 1 tablet 2 TIMES DAILY 1 tablet [...] MAINTAIN SITUATIONAL AWARENESS AND WILL NOTIFY CLINICAL DRYWALL FINISHING FOREMAN AND PHYSICIAN/PROVIDER WITH ANY CHANGE IN CONDITION. [code = SKILLED NURSE TO PERFORM ENVIRONMENTAL SAFETY RISK ASSESSMENT AND FALL RISK ASSESSMENT AND PROVIDE INSTRUCTION TO IMPLEMENT ENVIRONMENTAL SAFETY AND FALL PREVENTION STRATEGIES THROUGHOUT THE CERTIFICATION PERIOD. SKILLED NURSE WILL MAINTAIN SITUATIONAL AWARENESS AND WILL NOTIFY CLINICAL DRYWALL FINISHING FOREMAN AND PHYSICIAN/PROVIDER WITH ANY CHANGE IN CONDITION.] [...] LASIX PATIENT LIVING SITUATION/CAREGIVER STATUS: [facility] SUMMARIZE SKILLED NEED: DISEASE [...] End Date/Time Encounter Type Admission Type Attending [facility] Care Department Encounter ID Discharge Date Discharge Status Discharge Condition Discharge Reason Percent Goals Met 2025-02-24 00:00:00 2025-04-24 00:00:00 Outpatient RECERTIFIC ATION DEMETRI SLAUGHTER [facility] [id number] 6.25
--- OUTSIDE RECORDS SUMMARY | 2025-04-23 19:00 | XMS_ITS | Clinical Summary ---
Author Organization Unknown Care Team Providers Care Coper Hand Name Role Phone DARIAN DANGELO, ANYA Unavailable Unavaila aleisha CHRISTENSEN LEADING FIREFIGHTER/DENTAL OFFICE ASSISTANT, RENAN Unavailable Unava susie SLAUGHTER RN, DEMETRI Unavailable Unavailable Payers Payer Name Policy Type Policy Number Effective Date Expira tion Date MEDICARE - [facility] - PD [id number] Problems Condition Name Condition Details Condition Category [...] 01-11 00:00: 00 01-18 23:59 :00 No [id number] 1 tablet 2 TIMES DAILY 1 tablet 2 TIMES DAILY (route: oral) Med Classific ation: Anti-Infe ctive Agents lactulose 10 gram/15 mL oral solution 01-11 00:00: 00 04-01 23:59 :00 No [id number] 30 g DAILY 30 g DAILY (route: oral) Med Classific ation: Gastroint estinal Therapy Agents Rytary 36.25 mg-145 mg capsule,ext ended release 13 00:00: 00 04-01 23:59 :00 No [id number] 4 capsule 4 TIMES DAILY 4 capsule 4 TIMES DAILY (route: oral) Med Classific ation: Central Nervous System Agents Breo Ellipta 100 mcg-25 mcg/dose powder for inhalation - 00:00: 00 04-01 23:59 :00 No [id number] 1 inhalat ion ONCE DAILY 1 inhalation ONCE DAILY (route: inhalation ) Med Classific ation: Respirato ry Therapy Agents mirtazapine 45 mg tablet 12-12 00:00: 00 04-01 23:59 :00 No [id number] 1 tablet DAILY 1 tablet DAILY (route: oral) Med Classific ation: Central Nervous System Agents docusate sodium 100 mg capsule 16 00:00: 00 04-01 23:59 :00 No [id number] 1 capsule 2 TIMES DAILY 1 capsule 2 TIMES DAILY (route: oral) Med Classific ation: Gastroint estinal Therapy Agents Eliquis 5 mg tablet 10-26 00:00: 00 04-01 23:59 :00 No [id number] 1 tablet 2 TIMES DAILY 1 tablet 2 TIMES DAILY (route: oral) Med Classific ation: Hematolog ical Agents ferrous sulfate 325 mg (65 mg iron) tablet 10-26 00:00: 00 04-01 23:59 :00 No [id number] 1 tablet DAILY 1 tablet DAILY (route: oral) Med Classific ation: Electroly te Balance-N utritiona l Products finasteride 5 mg tablet 10-26 00:00: 00 04-01 23:59 :00 No [id number] 1 tablet DAILY 1 tablet DAILY (route: oral) Med Classific ation: Genitouri nary Therapy furosemide 40 mg tablet 10-26 00:00: 00 04-01 23:59 :00 No [id number] 1 tablet 2 TIMES DAILY 1 tablet 2 TIMES DAILY (route: oral) Med Classific ation: Cardiovas cular Therapy Agents magnesium 400 mg (as magnesium oxide) tablet 10-26 00:00: 00 04-01 23:59 :00 No [id number] 1 tablet DAILY 1 tablet DAILY (route: oral) Med Classific ation: Electroly te Balance-N utritiona l Products prednisolon e acetate 1 % eye drops,suspe nsion 10-26 00:00: 00 04-01 23:59 :00 No [id number] 1 drops 3 TIMES DAILY 1 drops 3 TIMES DAILY (route: ophthalmic (eye)) Med Classific ation: Ophthalmi c Agents ropinirole 0.25 mg tablet 09-28 00:00: 00 04-01 23:59 :00 No [id number] Per instruc tions DIRECTED Per instructio ns DIRECTED (route: oral) Med Classific ation: Central Nervous System Agents venlafaxine ER 225 mg tablet,exte nded release 24 hr 10-26 00:00: 00 04-01 23:59 :00 No [id number] 1 tablet DAILY 1 tablet DAILY (route: oral) Med Classific ation: Central Nervous System Agents Vitamin D3 125 mcg (5,000 unit) tablet 09-28 00:00: 00 04-01 23:59 :00 No [id number] 1 tablet DAILY 1 tablet DAILY (route: oral) Med Classific ation: Electroly te Balance-N utritiona l Products clonazepam 0.5 mg tablet 2023-04 0-11 00:00: 00 04-01 23:59 :00 No [id number] Per instruc tions BEDTIME Per instructio ns BEDTIME (route: oral) Med Classific ation: Central Nervous System Agents acetaminoph en 325 mg tablet 04-30 00:00: 00 06-27 23:59 :00 No [id number] 2 tablet EVERY 4 HOURS 2 tablet EVERY 4 HOURS (route: oral) Med Classific ation: Analgesic , Anti-infl ammatory or Antipyret ic albuterol sulfate HFA 90 mcg/actuati on aerosol inhaler 04-30 00:00: 00 06-27 23:59 :00 No [id number] 2 puff EVERY 6 HOURS 2 puff EVERY 6 HOURS (route: inhalation ) Med Classific ation: Respirato ry Therapy Agents amantadine HCl 100 mg tablet 04-30 00:00: 00 06-27 23:59 :00 No [id number] 1 tablet DAILY 1 tablet DAILY (route: oral) Med Classific ation: Central Nervous System Agents amoxicillin 500 mg capsule 04-30 00:00: 00 06-27 23:59 :00 No [id number] 4 capsule DIRECTED 4 capsule DIRECTED (route: oral) Med Classific ation: Anti-Infe ctive Agents Breo Ellipta 100 mcg-25 mcg/dose powder for inhalation 04-30 00:00: 00 06-27 23:59 :00 No [id number] 1 inhalat ion DAILY 1 inhalation DAILY (route: inhalation ) Med Classific ation: Respirato ry Therapy Agents clonazepam 0.5 mg tablet 04-30 00:00: 00 06-27 23:59 :00 No [id number] 1 tablet BEDTIME 1 tablet BEDTIME (route: oral) Med Classific ation: Central Nervous System Agents docusate sodium 100 mg capsule 04-30 00:00: 00 06-27 23:59 :00 No [id number] 1 capsule 2 TIMES DAILY 1 capsule 2 TIMES DAILY (route: oral) Med Classific ation: Gastroint estinal Therapy Agents Eliquis 5 mg tablet 04-30 00:00: 00 06-27 23:59 :00 No [id number] 1 tablet 2 TIMES DAILY 1 tablet 2 TIMES DAILY (route: oral) Med Classific ation: Hematolog ical Agents finasteride 5 mg tablet 04-30 00:00: 00 06-27 23:59 :00 No [id number] 1 tablet DAILY 1 tablet DAILY (route: oral) Med Classific ation: Genitouri nary Therapy gabapentin 100 mg capsule 04-30 00:00: 00 06-27 23:59 :00 No [id number] 1 capsule DAILY 1 capsule DAILY (route: oral) Med Classific ation: Central Nervous System Agents gabapentin 300 mg capsule - 00:00: 00 06-27 23:59 :00 No [id number] 1 capsule BEDTIME 1 capsule BEDTIME (route: oral) Med Classific ation: Central Nervous System Agents mirtazapine 45 mg tablet - 00:00: 00 06-27 23:59 :00 No [id number] 1 tablet BEDTIME 1 tablet BEDTIME (route: oral) Med Classific ation: Central Nervous System Agents pantoprazol e 40 mg tablet,baltazar yed release - 00:00: 00 06-27 23:59 :00 No [id number] 1 tablet DAILY 1 tablet DAILY (route: oral) Med Classific ation: Gastroint estinal Therapy Agents ropinirole 0.25 mg tablet 04-30 00:00: 00 06-27 23:59 :00 No [id number] 1-4 tablet DIRECTED 1-4 tablet DIRECTED (route: oral) Med Classific ation: Central Nervous System Agents Rytary 36.25 mg-145 mg capsule,ext ended release 04-30 00:00: 00 06-27 23:59 :00 No [id number] 2 capsule 4 TIMES DAILY 2 capsule 4 TIMES DAILY (route: oral) Med Classific ation: Central Nervous System Agents venlafaxine ER 225 mg tablet,exte nded release 24 hr - 00:00: 00 06-27 23:59 :00 No [id number] 1 tablet BEDTIME 1 tablet BEDTIME (route: oral) Med Classific ation: Central Nervous System Agents amantadine HCl 100 mg capsule 3-04 00:00: 00 Yes [id number] 1 capsule DAILY 1 capsule DAILY (route: oral) Med Classific ation: Central Nervous System Agents clonazepam 0.5 mg tablet 3-04 00:00: 00 Yes [id number] 1 tablet BEDTIME 1 tablet BEDTIME (route: oral) Med Classific ation: Central Nervous System Agents Eliquis 5 mg tablet 3-04 00:00: 00 Yes [id number] 1 tablet 2 TIMES DAILY 1 tablet 2 TIMES DAILY (route: oral) Med Classific ation: Hematolog ical Agents finasteride 5 mg tablet 06-29 00:00: 00 Yes [id number] 1 tablet DAILY 1 tablet DAILY (route: oral) Med Classific ation: Genitouri nary Therapy gabapentin 100 mg capsule 06-29 00:00: 00 Yes [id number] 1 capsule DAILY 1 capsule DAILY (route: oral) Med Classific ation: Central Nervous System Agents gabapentin 300 mg capsule 06-29 00:00: 00 Yes [id number] 1 capsule BEDTIME 1 capsule BEDTIME (route: oral) Med Classific ation: Central Nervous System Agents mirtazapine 45 mg tablet 06-29 00:00: 00 Yes [id number] 1 tablet DAILY 1 tablet DAILY (route: oral) Med Classific ation: Central Nervous System Agents pantoprazol e 40 mg tablet,baltazar yed release 06-29 00:00: 00 10-21 23:59 :00 No [id number] 1 tablet DAILY 1 tablet DAILY (route: oral) Med Classific ation: Gastroint estinal Therapy Agents ropinirole 0.25 mg tablet 06-29 00:00: 00 Yes [id number] 2 tablet DAILY 2 tablet DAILY (route: oral) Med Classific ation: Central Nervous System Agents Rytary 36.25 mg-145 mg capsule,ext ended release 06-29 00:00: 00 Yes [id number] 3 capsule 4 TIMES DAILY 3 capsule 4 TIMES DAILY (route: oral) Med Classific ation: Central Nervous System Agents venlafaxine ER 225 mg tablet,exte nded release 24 hr 06-29 00:00: 00 Yes [id number] 1 tablet DAILY 1 tablet DAILY (route: oral) Med Classific ation: Central Nervous System Agents albuterol sulfate HFA 90 mcg/actuati on aerosol inhaler 06-29 00:00: 00 Yes [id number] 2 puff EVERY 6 HOURS 2 puff EVERY 6 HOURS (route: inhalation ) Med Classific ation: Respirato ry Therapy Agents Breo Ellipta 100 mcg-25 mcg/dose powder for inhalation 3-04 00:00: 00 Yes [id number] 1 inhalat ion DAILY 1 inhalation DAILY (route: inhalation ) Med Classific ation: Respirato ry Therapy Agents pantoprazol e 40 mg tablet,baltazar yed release 3- 00:00: 00 10-21 23:59 :00 No [id number] 1 tablet 2 TIMES DAILY 1 tablet 2 TIMES DAILY (route: oral) Med Classific ation: Gastroint estinal Therapy Agents fluconazole 200 mg tablet - 00:00: 00 Yes [id number] 200 mg DAILY 200 mg DAILY (route: oral) Alternate Route: SUBLINGUA L. Med Classific ation: Anti-Infe ctive Agents Carafate 100 mg/mL oral suspension 10-26 00:00: 00 Yes [id number] 10 mL 4 TIMES DAILY 10 mL 4 TIMES DAILY (route: oral) Med Classific ation: Gastroint estinal Therapy Agents Voquezna 20 mg tablet 10-26 00:00: 00 12-03 00:58 :03.3 47 No [id number] 1 tablet 2 TIMES DAILY 1 tablet 2 TIMES DAILY (route: oral) Med Classific ation: Gastroint estinal Therapy Agents Voquezna 20 mg tablet 10-21 00:00: 00 Yes [id number] 1 tablet 2 TIMES DAILY 1 tablet [...] BLOCKAGE/LEAKAGE, HEAVY SEDIMENT. 1 - 3 PRN HALFWAY VISITS FOR CATHETER CHANGE(S) AND/OR TROUBLESHOOTING. [code = SKILLED NURSE TO INSTRUCT PATIENT/CAREGIVER AND PERFORM CARE AND MANAGEMENT OF INDWELLING URINARY CATHETER. [place] CATHETER INSERTION WITH 18 FR CATHETER WITH 10 ML BALLOON VIA STERILE TECHNIQUE, CHANGE Q 4 WEEKS AND PRN FOR LEAKING OR MALFUNCTIONING CATHETER. IRRIGATE URINARY CATHETER WITH 30-60CC NORMAL SALINE PRN BLOCKAGE/LEAKAGE, HEAVY SEDIMENT. 1 - 3 PRN HALFWAY VISITS FOR CATHETER CHANGE(S) AND/OR TROUBLESHOOTING.] Future [...] MAINTAIN SITUATIONAL AWARENESS AND WILL NOTIFY CLINICAL GRANTS ASSISTANT AND PHYSICIAN/PROVIDER WITH ANY CHANGE IN CONDITION. [code = SKILLED NURSE TO PERFORM ENVIRONMENTAL SAFETY RISK ASSESSMENT AND FALL RISK ASSESSMENT AND PROVIDE INSTRUCTION TO IMPLEMENT ENVIRONMENTAL SAFETY AND FALL PREVENTION STRATEGIES THROUGHOUT THE CERTIFICATION PERIOD. SKILLED NURSE WILL MAINTAIN SITUATIONAL AWARENESS AND WILL NOTIFY CLINICAL GRANTS ASSISTANT AND PHYSICIAN/PROVIDER WITH ANY CHANGE IN CONDITION.] [...] LASIX PATIENT LIVING SITUATION/CAREGIVER STATUS: [facility] SUMMARIZE SKILLED NEED: [...] CARE WILL BE ESTABLISHED THAT MEETS PATIENT'S HALFWAY NEEDS AND INCLUDES PATIENT GOAL FOR HOME [...] RECERTIFIC ATION DEMETRI SLAUGHTER [facility] [id number] 6.25
--- OUTSIDE RECORDS SUMMARY | 2025-04-23 19:00 | XMS_ITS | Clinical Summary ---
Author Organization Unknown Care Team Providers Care Rubber Press Tender Name Role Phone DARIAN DANGELO, ANYA Unavailable Unavaila aleisha CHRISTENSEN MUSIC THERAPIST/CHAPERONE, RENAN Unavailable Unava susie SLAUGHTER RN, DEMETRI Unavailable Unavailable Payers Payer Name Policy Type Policy Number Effective Date Expira tion Date MEDICARE - [facility] - PD [id number] Problems Condition Name Condition Details Condition Category [...] 01-11 00:00: 00 01-18 23:59 :00 No [id number] 1 tablet 2 TIMES DAILY 1 tablet 2 TIMES DAILY (route: oral) Med Classific ation: Anti-Infe ctive Agents lactulose 10 gram/15 mL oral solution 01-11 00:00: 00 04-01 23:59 :00 No [id number] 30 g DAILY 30 g DAILY (route: oral) Med Classific ation: Gastroint estinal Therapy Agents Rytary 36.25 mg-145 mg capsule,ext ended release 13 00:00: 00 04-01 23:59 :00 No [id number] 4 capsule 4 TIMES DAILY 4 capsule 4 TIMES DAILY (route: oral) Med Classific ation: Central Nervous System Agents Breo Ellipta 100 mcg-25 mcg/dose powder for inhalation - 00:00: 00 04-01 23:59 :00 No [id number] 1 inhalat ion ONCE DAILY 1 inhalation ONCE DAILY (route: inhalation ) Med Classific ation: Respirato ry Therapy Agents mirtazapine 45 mg tablet 12-12 00:00: 00 04-01 23:59 :00 No [id number] 1 tablet DAILY 1 tablet DAILY (route: oral) Med Classific ation: Central Nervous System Agents docusate sodium 100 mg capsule 16 00:00: 00 04-01 23:59 :00 No [id number] 1 capsule 2 TIMES DAILY 1 capsule 2 TIMES DAILY (route: oral) Med Classific ation: Gastroint estinal Therapy Agents Eliquis 5 mg tablet 10-26 00:00: 00 04-01 23:59 :00 No [id number] 1 tablet 2 TIMES DAILY 1 tablet 2 TIMES DAILY (route: oral) Med Classific ation: Hematolog ical Agents ferrous sulfate 325 mg (65 mg iron) tablet 10-26 00:00: 00 04-01 23:59 :00 No [id number] 1 tablet DAILY 1 tablet DAILY (route: oral) Med Classific ation: Electroly te Balance-N utritiona l Products finasteride 5 mg tablet 10-26 00:00: 00 04-01 23:59 :00 No [id number] 1 tablet DAILY 1 tablet DAILY (route: oral) Med Classific ation: Genitouri nary Therapy furosemide 40 mg tablet 10-26 00:00: 00 04-01 23:59 :00 No [id number] 1 tablet 2 TIMES DAILY 1 tablet 2 TIMES DAILY (route: oral) Med Classific ation: Cardiovas cular Therapy Agents magnesium 400 mg (as magnesium oxide) tablet 10-26 00:00: 00 04-01 23:59 :00 No [id number] 1 tablet DAILY 1 tablet DAILY (route: oral) Med Classific ation: Electroly te Balance-N utritiona l Products prednisolon e acetate 1 % eye drops,suspe nsion 10-26 00:00: 00 04-01 23:59 :00 No [id number] 1 drops 3 TIMES DAILY 1 drops 3 TIMES DAILY (route: ophthalmic (eye)) Med Classific ation: Ophthalmi c Agents ropinirole 0.25 mg tablet 09-28 00:00: 00 04-01 23:59 :00 No [id number] Per instruc tions DIRECTED Per instructio ns DIRECTED (route: oral) Med Classific ation: Central Nervous System Agents venlafaxine ER 225 mg tablet,exte nded release 24 hr 10-26 00:00: 00 04-01 23:59 :00 No [id number] 1 tablet DAILY 1 tablet DAILY (route: oral) Med Classific ation: Central Nervous System Agents Vitamin D3 125 mcg (5,000 unit) tablet 09-28 00:00: 00 04-01 23:59 :00 No [id number] 1 tablet DAILY 1 tablet DAILY (route: oral) Med Classific ation: Electroly te Balance-N utritiona l Products clonazepam 0.5 mg tablet 2023-04 0-11 00:00: 00 04-01 23:59 :00 No [id number] Per instruc tions BEDTIME Per instructio ns BEDTIME (route: oral) Med Classific ation: Central Nervous System Agents acetaminoph en 325 mg tablet 04-30 00:00: 00 06-27 23:59 :00 No [id number] 2 tablet EVERY 4 HOURS 2 tablet EVERY 4 HOURS (route: oral) Med Classific ation: Analgesic , Anti-infl ammatory or Antipyret ic albuterol sulfate HFA 90 mcg/actuati on aerosol inhaler 04-30 00:00: 00 06-27 23:59 :00 No [id number] 2 puff EVERY 6 HOURS 2 puff EVERY 6 HOURS (route: inhalation ) Med Classific ation: Respirato ry Therapy Agents amantadine HCl 100 mg tablet 04-30 00:00: 00 06-27 23:59 :00 No [id number] 1 tablet DAILY 1 tablet DAILY (route: oral) Med Classific ation: Central Nervous System Agents amoxicillin 500 mg capsule 04-30 00:00: 00 06-27 23:59 :00 No [id number] 4 capsule DIRECTED 4 capsule DIRECTED (route: oral) Med Classific ation: Anti-Infe ctive Agents Breo Ellipta 100 mcg-25 mcg/dose powder for inhalation 04-30 00:00: 00 06-27 23:59 :00 No [id number] 1 inhalat ion DAILY 1 inhalation DAILY (route: inhalation ) Med Classific ation: Respirato ry Therapy Agents clonazepam 0.5 mg tablet 04-30 00:00: 00 06-27 23:59 :00 No [id number] 1 tablet BEDTIME 1 tablet BEDTIME (route: oral) Med Classific ation: Central Nervous System Agents docusate sodium 100 mg capsule 04-30 00:00: 00 06-27 23:59 :00 No [id number] 1 capsule 2 TIMES DAILY 1 capsule 2 TIMES DAILY (route: oral) Med Classific ation: Gastroint estinal Therapy Agents Eliquis 5 mg tablet 04-30 00:00: 00 06-27 23:59 :00 No [id number] 1 tablet 2 TIMES DAILY 1 tablet 2 TIMES DAILY (route: oral) Med Classific ation: Hematolog ical Agents finasteride 5 mg tablet 04-30 00:00: 00 06-27 23:59 :00 No [id number] 1 tablet DAILY 1 tablet DAILY (route: oral) Med Classific ation: Genitouri nary Therapy gabapentin 100 mg capsule 04-30 00:00: 00 06-27 23:59 :00 No [id number] 1 capsule DAILY 1 capsule DAILY (route: oral) Med Classific ation: Central Nervous System Agents gabapentin 300 mg capsule - 00:00: 00 06-27 23:59 :00 No [id number] 1 capsule BEDTIME 1 capsule BEDTIME (route: oral) Med Classific ation: Central Nervous System Agents mirtazapine 45 mg tablet - 00:00: 00 06-27 23:59 :00 No [id number] 1 tablet BEDTIME 1 tablet BEDTIME (route: oral) Med Classific ation: Central Nervous System Agents pantoprazol e 40 mg tablet,baltazar yed release - 00:00: 00 06-27 23:59 :00 No [id number] 1 tablet DAILY 1 tablet DAILY (route: oral) Med Classific ation: Gastroint estinal Therapy Agents ropinirole 0.25 mg tablet 04-30 00:00: 00 06-27 23:59 :00 No [id number] 1-4 tablet DIRECTED 1-4 tablet DIRECTED (route: oral) Med Classific ation: Central Nervous System Agents Rytary 36.25 mg-145 mg capsule,ext ended release 04-30 00:00: 00 06-27 23:59 :00 No [id number] 2 capsule 4 TIMES DAILY 2 capsule 4 TIMES DAILY (route: oral) Med Classific ation: Central Nervous System Agents venlafaxine ER 225 mg tablet,exte nded release 24 hr - 00:00: 00 06-27 23:59 :00 No [id number] 1 tablet BEDTIME 1 tablet BEDTIME (route: oral) Med Classific ation: Central Nervous System Agents amantadine HCl 100 mg capsule 3-04 00:00: 00 Yes [id number] 1 capsule DAILY 1 capsule DAILY (route: oral) Med Classific ation: Central Nervous System Agents clonazepam 0.5 mg tablet 3-04 00:00: 00 Yes [id number] 1 tablet BEDTIME 1 tablet BEDTIME (route: oral) Med Classific ation: Central Nervous System Agents Eliquis 5 mg tablet 3-04 00:00: 00 Yes [id number] 1 tablet 2 TIMES DAILY 1 tablet 2 TIMES DAILY (route: oral) Med Classific ation: Hematolog ical Agents finasteride 5 mg tablet 06-29 00:00: 00 Yes [id number] 1 tablet DAILY 1 tablet DAILY (route: oral) Med Classific ation: Genitouri nary Therapy gabapentin 100 mg capsule 06-29 00:00: 00 Yes [id number] 1 capsule DAILY 1 capsule DAILY (route: oral) Med Classific ation: Central Nervous System Agents gabapentin 300 mg capsule 06-29 00:00: 00 Yes [id number] 1 capsule BEDTIME 1 capsule BEDTIME (route: oral) Med Classific ation: Central Nervous System Agents mirtazapine 45 mg tablet 06-29 00:00: 00 Yes [id number] 1 tablet DAILY 1 tablet DAILY (route: oral) Med Classific ation: Central Nervous System Agents pantoprazol e 40 mg tablet,baltazar yed release 06-29 00:00: 00 10-21 23:59 :00 No [id number] 1 tablet DAILY 1 tablet DAILY (route: oral) Med Classific ation: Gastroint estinal Therapy Agents ropinirole 0.25 mg tablet 06-29 00:00: 00 Yes [id number] 2 tablet DAILY 2 tablet DAILY (route: oral) Med Classific ation: Central Nervous System Agents Rytary 36.25 mg-145 mg capsule,ext ended release 06-29 00:00: 00 Yes [id number] 3 capsule 4 TIMES DAILY 3 capsule 4 TIMES DAILY (route: oral) Med Classific ation: Central Nervous System Agents venlafaxine ER 225 mg tablet,exte nded release 24 hr 06-29 00:00: 00 Yes [id number] 1 tablet DAILY 1 tablet DAILY (route: oral) Med Classific ation: Central Nervous System Agents albuterol sulfate HFA 90 mcg/actuati on aerosol inhaler 06-29 00:00: 00 Yes [id number] 2 puff EVERY 6 HOURS 2 puff EVERY 6 HOURS (route: inhalation ) Med Classific ation: Respirato ry Therapy Agents Breo Ellipta 100 mcg-25 mcg/dose powder for inhalation 3-04 00:00: 00 Yes [id number] 1 inhalat ion DAILY 1 inhalation DAILY (route: inhalation ) Med Classific ation: Respirato ry Therapy Agents pantoprazol e 40 mg tablet,baltazar yed release 3- 00:00: 00 10-21 23:59 :00 No [id number] 1 tablet 2 TIMES DAILY 1 tablet 2 TIMES DAILY (route: oral) Med Classific ation: Gastroint estinal Therapy Agents fluconazole 200 mg tablet - 00:00: 00 Yes [id number] 200 mg DAILY 200 mg DAILY (route: oral) Alternate Route: SUBLINGUA L. Med Classific ation: Anti-Infe ctive Agents Carafate 100 mg/mL oral suspension 10-26 00:00: 00 Yes [id number] 10 mL 4 TIMES DAILY 10 mL 4 TIMES DAILY (route: oral) Med Classific ation: Gastroint estinal Therapy Agents Voquezna 20 mg tablet 10-26 00:00: 00 12-03 00:58 :03.3 47 No [id number] 1 tablet 2 TIMES DAILY 1 tablet 2 TIMES DAILY (route: oral) Med Classific ation: Gastroint estinal Therapy Agents Voquezna 20 mg tablet 10-21 00:00: 00 Yes [id number] 1 tablet 2 TIMES DAILY 1 tablet [...] MAINTAIN SITUATIONAL AWARENESS AND WILL NOTIFY CLINICAL EDUCATION PROFESSOR AND PHYSICIAN/PROVIDER WITH ANY CHANGE IN CONDITION. [code = SKILLED NURSE TO PERFORM ENVIRONMENTAL SAFETY RISK ASSESSMENT AND FALL RISK ASSESSMENT AND PROVIDE INSTRUCTION TO IMPLEMENT ENVIRONMENTAL SAFETY AND FALL PREVENTION STRATEGIES THROUGHOUT THE CERTIFICATION PERIOD. SKILLED NURSE WILL MAINTAIN SITUATIONAL AWARENESS AND WILL NOTIFY CLINICAL EDUCATION PROFESSOR AND PHYSICIAN/PROVIDER WITH ANY CHANGE IN CONDITION.] [...] PATIENT LIVING SITUATION/CAREGIVER STATUS: [facility] SUMMARIZE SKILLED NEED: DISEASE [...] 2025-04-24 00:00:00 Outpatient RECERTIFIC ATION DEMETRI SLAUGH[facility] [id number] 6.25
--- OUTSIDE RECORDS SUMMARY | 2025-04-23 19:00 | XMS_ITS | Clinical Summary ---
Author Organization Unknown Care Team Providers Care Manager Mass Name Role Phone DARIAN DANGELO, ANYA Unavailable Unavaila aleisha CHRISTENSEN ORNAMENTAL METAL ERECTOR APPRENTICE/METAL TEMPLATE MAKER, RENAN Unavailable Unava susie SLAUGHTER RN, DEMERTI Unavailable Unavailable Payers Payer Name Policy Type Policy Number Effective Date Expira tion Date MEDICARE - [facility] - PD [id number] Problems Condition Name Condition Details Condition Category [...] 01-11 00:00: 00 01-18 23:59 :00 No [id number] 1 tablet 2 TIMES DAILY 1 tablet 2 TIMES DAILY (route: oral) Med Classific ation: Anti-Infe ctive Agents lactulose 10 gram/15 mL oral solution 01-11 00:00: 00 04-01 23:59 :00 No [id number] 30 g DAILY 30 g DAILY (route: oral) Med Classific ation: Gastroint estinal Therapy Agents Rytary 36.25 mg-145 mg capsule,ext ended release 13 00:00: 00 04-01 23:59 :00 No [id number] 4 capsule 4 TIMES DAILY 4 capsule 4 TIMES DAILY (route: oral) Med Classific ation: Central Nervous System Agents Breo Ellipta 100 mcg-25 mcg/dose powder for inhalation - 00:00: 00 04-01 23:59 :00 No [id number] 1 inhalat ion ONCE DAILY 1 inhalation ONCE DAILY (route: inhalation ) Med Classific ation: Respirato ry Therapy Agents mirtazapine 45 mg tablet 12-12 00:00: 00 04-01 23:59 :00 No [id number] 1 tablet DAILY 1 tablet DAILY (route: oral) Med Classific ation: Central Nervous System Agents docusate sodium 100 mg capsule 16 00:00: 00 04-01 23:59 :00 No [id number] 1 capsule 2 TIMES DAILY 1 capsule 2 TIMES DAILY (route: oral) Med Classific ation: Gastroint estinal Therapy Agents Eliquis 5 mg tablet 10-26 00:00: 00 04-01 23:59 :00 No [id number] 1 tablet 2 TIMES DAILY 1 tablet 2 TIMES DAILY (route: oral) Med Classific ation: Hematolog ical Agents ferrous sulfate 325 mg (65 mg iron) tablet 10-26 00:00: 00 04-01 23:59 :00 No [id number] 1 tablet DAILY 1 tablet DAILY (route: oral) Med Classific ation: Electroly te Balance-N utritiona l Products finasteride 5 mg tablet 10-26 00:00: 00 04-01 23:59 :00 No [id number] 1 tablet DAILY 1 tablet DAILY (route: oral) Med Classific ation: Genitouri nary Therapy furosemide 40 mg tablet 10-26 00:00: 00 04-01 23:59 :00 No [id number] 1 tablet 2 TIMES DAILY 1 tablet 2 TIMES DAILY (route: oral) Med Classific ation: Cardiovas cular Therapy Agents magnesium 400 mg (as magnesium oxide) tablet 10-26 00:00: 00 04-01 23:59 :00 No [id number] 1 tablet DAILY 1 tablet DAILY (route: oral) Med Classific ation: Electroly te Balance-N utritiona l Products prednisolon e acetate 1 % eye drops,suspe nsion 10-26 00:00: 00 04-01 23:59 :00 No [id number] 1 drops 3 TIMES DAILY 1 drops 3 TIMES DAILY (route: ophthalmic (eye)) Med Classific ation: Ophthalmi c Agents ropinirole 0.25 mg tablet 09-28 00:00: 00 04-01 23:59 :00 No [id number] Per instruc tions DIRECTED Per instructio ns DIRECTED (route: oral) Med Classific ation: Central Nervous System Agents venlafaxine ER 225 mg tablet,exte nded release 24 hr 10-26 00:00: 00 04-01 23:59 :00 No [id number] 1 tablet DAILY 1 tablet DAILY (route: oral) Med Classific ation: Central Nervous System Agents Vitamin D3 125 mcg (5,000 unit) tablet 09-28 00:00: 00 04-01 23:59 :00 No [id number] 1 tablet DAILY 1 tablet DAILY (route: oral) Med Classific ation: Electroly te Balance-N utritiona l Products clonazepam 0.5 mg tablet 2023-04 0-11 00:00: 00 04-01 23:59 :00 No [id number] Per instruc tions BEDTIME Per instructio ns BEDTIME (route: oral) Med Classific ation: Central Nervous System Agents acetaminoph en 325 mg tablet 04-30 00:00: 00 06-27 23:59 :00 No [id number] 2 tablet EVERY 4 HOURS 2 tablet EVERY 4 HOURS (route: oral) Med Classific ation: Analgesic , Anti-infl ammatory or Antipyret ic albuterol sulfate HFA 90 mcg/actuati on aerosol inhaler 04-30 00:00: 00 06-27 23:59 :00 No [id number] 2 puff EVERY 6 HOURS 2 puff EVERY 6 HOURS (route: inhalation ) Med Classific ation: Respirato ry Therapy Agents amantadine HCl 100 mg tablet 04-30 00:00: 00 06-27 23:59 :00 No [id number] 1 tablet DAILY 1 tablet DAILY (route: oral) Med Classific ation: Central Nervous System Agents amoxicillin 500 mg capsule 04-30 00:00: 00 06-27 23:59 :00 No [id number] 4 capsule DIRECTED 4 capsule DIRECTED (route: oral) Med Classific ation: Anti-Infe ctive Agents Breo Ellipta 100 mcg-25 mcg/dose powder for inhalation 04-30 00:00: 00 06-27 23:59 :00 No [id number] 1 inhalat ion DAILY 1 inhalation DAILY (route: inhalation ) Med Classific ation: Respirato ry Therapy Agents clonazepam 0.5 mg tablet 04-30 00:00: 00 06-27 23:59 :00 No [id number] 1 tablet BEDTIME 1 tablet BEDTIME (route: oral) Med Classific ation: Central Nervous System Agents docusate sodium 100 mg capsule 04-30 00:00: 00 06-27 23:59 :00 No [id number] 1 capsule 2 TIMES DAILY 1 capsule 2 TIMES DAILY (route: oral) Med Classific ation: Gastroint estinal Therapy Agents Eliquis 5 mg tablet 04-30 00:00: 00 06-27 23:59 :00 No [id number] 1 tablet 2 TIMES DAILY 1 tablet 2 TIMES DAILY (route: oral) Med Classific ation: Hematolog ical Agents finasteride 5 mg tablet 04-30 00:00: 00 06-27 23:59 :00 No [id number] 1 tablet DAILY 1 tablet DAILY (route: oral) Med Classific ation: Genitouri nary Therapy gabapentin 100 mg capsule 04-30 00:00: 00 06-27 23:59 :00 No [id number] 1 capsule DAILY 1 capsule DAILY (route: oral) Med Classific ation: Central Nervous System Agents gabapentin 300 mg capsule - 00:00: 00 06-27 23:59 :00 No [id number] 1 capsule BEDTIME 1 capsule BEDTIME (route: oral) Med Classific ation: Central Nervous System Agents mirtazapine 45 mg tablet - 00:00: 00 06-27 23:59 :00 No [id number] 1 tablet BEDTIME 1 tablet BEDTIME (route: oral) Med Classific ation: Central Nervous System Agents pantoprazol e 40 mg tablet,baltazar yed release - 00:00: 00 06-27 23:59 :00 No [id number] 1 tablet DAILY 1 tablet DAILY (route: oral) Med Classific ation: Gastroint estinal Therapy Agents ropinirole 0.25 mg tablet 04-30 00:00: 00 06-27 23:59 :00 No [id number] 1-4 tablet DIRECTED 1-4 tablet DIRECTED (route: oral) Med Classific ation: Central Nervous System Agents Rytary 36.25 mg-145 mg capsule,ext ended release 04-30 00:00: 00 06-27 23:59 :00 No [id number] 2 capsule 4 TIMES DAILY 2 capsule 4 TIMES DAILY (route: oral) Med Classific ation: Central Nervous System Agents venlafaxine ER 225 mg tablet,exte nded release 24 hr - 00:00: 00 06-27 23:59 :00 No [id number] 1 tablet BEDTIME 1 tablet BEDTIME (route: oral) Med Classific ation: Central Nervous System Agents amantadine HCl 100 mg capsule 3-04 00:00: 00 Yes [id number] 1 capsule DAILY 1 capsule DAILY (route: oral) Med Classific ation: Central Nervous System Agents clonazepam 0.5 mg tablet 3-04 00:00: 00 Yes [id number] 1 tablet BEDTIME 1 tablet BEDTIME (route: oral) Med Classific ation: Central Nervous System Agents Eliquis 5 mg tablet 3-04 00:00: 00 Yes [id number] 1 tablet 2 TIMES DAILY 1 tablet 2 TIMES DAILY (route: oral) Med Classific ation: Hematolog ical Agents finasteride 5 mg tablet 06-29 00:00: 00 Yes [id number] 1 tablet DAILY 1 tablet DAILY (route: oral) Med Classific ation: Genitouri nary Therapy gabapentin 100 mg capsule 06-29 00:00: 00 Yes [id number] 1 capsule DAILY 1 capsule DAILY (route: oral) Med Classific ation: Central Nervous System Agents gabapentin 300 mg capsule 06-29 00:00: 00 Yes [id number] 1 capsule BEDTIME 1 capsule BEDTIME (route: oral) Med Classific ation: Central Nervous System Agents mirtazapine 45 mg tablet 06-29 00:00: 00 Yes [id number] 1 tablet DAILY 1 tablet DAILY (route: oral) Med Classific ation: Central Nervous System Agents pantoprazol e 40 mg tablet,baltazar yed release 06-29 00:00: 00 10-21 23:59 :00 No [id number] 1 tablet DAILY 1 tablet DAILY (route: oral) Med Classific ation: Gastroint estinal Therapy Agents ropinirole 0.25 mg tablet 06-29 00:00: 00 Yes [id number] 2 tablet DAILY 2 tablet DAILY (route: oral) Med Classific ation: Central Nervous System Agents Rytary 36.25 mg-145 mg capsule,ext ended release 06-29 00:00: 00 Yes [id number] 3 capsule 4 TIMES DAILY 3 capsule 4 TIMES DAILY (route: oral) Med Classific ation: Central Nervous System Agents venlafaxine ER 225 mg tablet,exte nded release 24 hr 06-29 00:00: 00 Yes [id number] 1 tablet DAILY 1 tablet DAILY (route: oral) Med Classific ation: Central Nervous System Agents albuterol sulfate HFA 90 mcg/actuati on aerosol inhaler 06-29 00:00: 00 Yes [id number] 2 puff EVERY 6 HOURS 2 puff EVERY 6 HOURS (route: inhalation ) Med Classific ation: Respirato ry Therapy Agents Breo Ellipta 100 mcg-25 mcg/dose powder for inhalation 3-04 00:00: 00 Yes [id number] 1 inhalat ion DAILY 1 inhalation DAILY (route: inhalation ) Med Classific ation: Respirato ry Therapy Agents pantoprazol e 40 mg tablet,baltazar yed release 3- 00:00: 00 10-21 23:59 :00 No [id number] 1 tablet 2 TIMES DAILY 1 tablet 2 TIMES DAILY (route: oral) Med Classific ation: Gastroint estinal Therapy Agents fluconazole 200 mg tablet - 00:00: 00 Yes [id number] 200 mg DAILY 200 mg DAILY (route: oral) Alternate Route: SUBLINGUA L. Med Classific ation: Anti-Infe ctive Agents Carafate 100 mg/mL oral suspension 10-26 00:00: 00 Yes [id number] 10 mL 4 TIMES DAILY 10 mL 4 TIMES DAILY (route: oral) Med Classific ation: Gastroint estinal Therapy Agents Voquezna 20 mg tablet 10-26 00:00: 00 12-03 00:58 :03.3 47 No [id number] 1 tablet 2 TIMES DAILY 1 tablet 2 TIMES DAILY (route: oral) Med Classific ation: Gastroint estinal Therapy Agents Voquezna 20 mg tablet 10-21 00:00: 00 Yes [id number] 1 tablet 2 TIMES DAILY 1 tablet [...] BLOCKAGE/LEAKAGE, HEAVY SEDIMENT. 1 - 3 PRN GROUP HOME VISITS FOR CATHETER CHANGE(S) AND/OR TROUBLESHOOTING. [code = SKILLED NURSE TO INSTRUCT PATIENT/CAREGIVER AND PERFORM CARE AND MANAGEMENT OF INDWELLING URINARY CATHETER. [place] CATHETER INSERTION WITH 18 FR CATHETER WITH 10 ML BALLOON VIA STERILE TECHNIQUE, CHANGE Q 4 WEEKS AND PRN FOR LEAKING OR MALFUNCTIONING CATHETER. IRRIGATE URINARY CATHETER WITH 30-60CC NORMAL SALINE PRN BLOCKAGE/LEAKAGE, HEAVY SEDIMENT. 1 - 3 PRN GROUP HOME VISITS FOR CATHETER CHANGE(S) AND/OR TROUBLESHOOTING.] [...] MAINTAIN SITUATIONAL AWARENESS AND WILL NOTIFY CLINICAL NODE JS DEVELOPER AND PHYSICIAN/PROVIDER WITH ANY CHANGE IN CONDITION. [code = SKILLED NURSE TO PERFORM ENVIRONMENTAL SAFETY RISK ASSESSMENT AND FALL RISK ASSESSMENT AND PROVIDE INSTRUCTION TO IMPLEMENT ENVIRONMENTAL SAFETY AND FALL PREVENTION STRATEGIES THROUGHOUT THE CERTIFICATION PERIOD. SKILLED NURSE WILL MAINTAIN SITUATIONAL AWARENESS AND WILL NOTIFY CLINICAL NODE JS DEVELOPER AND PHYSICIAN/PROVIDER WITH ANY CHANGE IN CONDITION.] [...] CARE WILL BE ESTABLISHED THAT MEETS PATIENT'S GROUP HOME NEEDS AND INCLUDES PATIENT GOAL FOR [...] End Date/Time Encounter Type Admission Type Attending [facility] Care Department Encounter ID Discharge Date Discharge Status Discharge Condition Discharge Reason Percent Goals Met 2025-02-24 00:00:00 2025-04-24 00:00:00 Outpatient RECERTIFIC ATION DEMETRI SLAUGHTER [facility] [id number] 6.25
--- OUTSIDE RECORDS SUMMARY | 2025-04-23 19:00 | XMS_ITS | Clinical Summary ---
Author Organization Unknown Care Team Providers Care Mix Crusher Operator Name Role Phone DARIAN DANGELO, ANYA Unavailable Unavaila aleisha CHRISTENSEN HOT BREAD BAKER/CRIME SCENE SPECIALIST, RENAN Unavailable Unava susie SLAUGHTER RN, DEMETRI Unavailable Unavailable Payers Payer Name Policy Type Policy Number Effective Date Expira tion Date MEDICARE - [facility] - PD [id number] Problems Condition Name Condition Details Condition Category [...] OF URINARY DEVICE Active 04-28 00:00: 00 ALF (CURRENT) USE OF ANTICOAGULAN TS Active 04-28 [...] 01-11 00:00: 00 01-18 23:59 :00 No [id number] 1 tablet 2 TIMES DAILY 1 tablet 2 TIMES DAILY (route: oral) Med Classific ation: Anti-Infe ctive Agents lactulose 10 gram/15 mL oral solution 01-11 00:00: 00 04-01 23:59 :00 No [id number] 30 g DAILY 30 g DAILY (route: oral) Med Classific ation: Gastroint estinal Therapy Agents Rytary 36.25 mg-145 mg capsule,ext ended release 13 00:00: 00 04-01 23:59 :00 No [id number] 4 capsule 4 TIMES DAILY 4 capsule 4 TIMES DAILY (route: oral) Med Classific ation: Central Nervous System Agents Breo Ellipta 100 mcg-25 mcg/dose powder for inhalation - 00:00: 00 04-01 23:59 :00 No [id number] 1 inhalat ion ONCE DAILY 1 inhalation ONCE DAILY (route: inhalation ) Med Classific ation: Respirato ry Therapy Agents mirtazapine 45 mg tablet 12-12 00:00: 00 04-01 23:59 :00 No [id number] 1 tablet DAILY 1 tablet DAILY (route: oral) Med Classific ation: Central Nervous System Agents docusate sodium 100 mg capsule 16 00:00: 00 04-01 23:59 :00 No [id number] 1 capsule 2 TIMES DAILY 1 capsule 2 TIMES DAILY (route: oral) Med Classific ation: Gastroint estinal Therapy Agents Eliquis 5 mg tablet 10-26 00:00: 00 04-01 23:59 :00 No [id number] 1 tablet 2 TIMES DAILY 1 tablet 2 TIMES DAILY (route: oral) Med Classific ation: Hematolog ical Agents ferrous sulfate 325 mg (65 mg iron) tablet 10-26 00:00: 00 04-01 23:59 :00 No [id number] 1 tablet DAILY 1 tablet DAILY (route: oral) Med Classific ation: Electroly te Balance-N utritiona l Products finasteride 5 mg tablet 10-26 00:00: 00 04-01 23:59 :00 No [id number] 1 tablet DAILY 1 tablet DAILY (route: oral) Med Classific ation: Genitouri nary Therapy furosemide 40 mg tablet 10-26 00:00: 00 04-01 23:59 :00 No [id number] 1 tablet 2 TIMES DAILY 1 tablet 2 TIMES DAILY (route: oral) Med Classific ation: Cardiovas cular Therapy Agents magnesium 400 mg (as magnesium oxide) tablet 10-26 00:00: 00 04-01 23:59 :00 No [id number] 1 tablet DAILY 1 tablet DAILY (route: oral) Med Classific ation: Electroly te Balance-N utritiona l Products prednisolon e acetate 1 % eye drops,suspe nsion 10-26 00:00: 00 04-01 23:59 :00 No [id number] 1 drops 3 TIMES DAILY 1 drops 3 TIMES DAILY (route: ophthalmic (eye)) Med Classific ation: Ophthalmi c Agents ropinirole 0.25 mg tablet 09-28 00:00: 00 04-01 23:59 :00 No [id number] Per instruc tions DIRECTED Per instructio ns DIRECTED (route: oral) Med Classific ation: Central Nervous System Agents venlafaxine ER 225 mg tablet,exte nded release 24 hr 10-26 00:00: 00 04-01 23:59 :00 No [id number] 1 tablet DAILY 1 tablet DAILY (route: oral) Med Classific ation: Central Nervous System Agents Vitamin D3 125 mcg (5,000 unit) tablet 09-28 00:00: 00 04-01 23:59 :00 No [id number] 1 tablet DAILY 1 tablet DAILY (route: oral) Med Classific ation: Electroly te Balance-N utritiona l Products clonazepam 0.5 mg tablet 2023-04 0-11 00:00: 00 04-01 23:59 :00 No [id number] Per instruc tions BEDTIME Per instructio ns BEDTIME (route: oral) Med Classific ation: Central Nervous System Agents acetaminoph en 325 mg tablet 04-30 00:00: 00 06-27 23:59 :00 No [id number] 2 tablet EVERY 4 HOURS 2 tablet EVERY 4 HOURS (route: oral) Med Classific ation: Analgesic , Anti-infl ammatory or Antipyret ic albuterol sulfate HFA 90 mcg/actuati on aerosol inhaler 04-30 00:00: 00 06-27 23:59 :00 No [id number] 2 puff EVERY 6 HOURS 2 puff EVERY 6 HOURS (route: inhalation ) Med Classific ation: Respirato ry Therapy Agents amantadine HCl 100 mg tablet 04-30 00:00: 00 06-27 23:59 :00 No [id number] 1 tablet DAILY 1 tablet DAILY (route: oral) Med Classific ation: Central Nervous System Agents amoxicillin 500 mg capsule 04-30 00:00: 00 06-27 23:59 :00 No [id number] 4 capsule DIRECTED 4 capsule DIRECTED (route: oral) Med Classific ation: Anti-Infe ctive Agents Breo Ellipta 100 mcg-25 mcg/dose powder for inhalation 04-30 00:00: 00 06-27 23:59 :00 No [id number] 1 inhalat ion DAILY 1 inhalation DAILY (route: inhalation ) Med Classific ation: Respirato ry Therapy Agents clonazepam 0.5 mg tablet 04-30 00:00: 00 06-27 23:59 :00 No [id number] 1 tablet BEDTIME 1 tablet BEDTIME (route: oral) Med Classific ation: Central Nervous System Agents docusate sodium 100 mg capsule 04-30 00:00: 00 06-27 23:59 :00 No [id number] 1 capsule 2 TIMES DAILY 1 capsule 2 TIMES DAILY (route: oral) Med Classific ation: Gastroint estinal Therapy Agents Eliquis 5 mg tablet 04-30 00:00: 00 06-27 23:59 :00 No [id number] 1 tablet 2 TIMES DAILY 1 tablet 2 TIMES DAILY (route: oral) Med Classific ation: Hematolog ical Agents finasteride 5 mg tablet 04-30 00:00: 00 06-27 23:59 :00 No [id number] 1 tablet DAILY 1 tablet DAILY (route: oral) Med Classific ation: Genitouri nary Therapy gabapentin 100 mg capsule 04-30 00:00: 00 06-27 23:59 :00 No [id number] 1 capsule DAILY 1 capsule DAILY (route: oral) Med Classific ation: Central Nervous System Agents gabapentin 300 mg capsule - 00:00: 00 06-27 23:59 :00 No [id number] 1 capsule BEDTIME 1 capsule BEDTIME (route: oral) Med Classific ation: Central Nervous System Agents mirtazapine 45 mg tablet - 00:00: 00 06-27 23:59 :00 No [id number] 1 tablet BEDTIME 1 tablet BEDTIME (route: oral) Med Classific ation: Central Nervous System Agents pantoprazol e 40 mg tablet,baltazar yed release - 00:00: 00 06-27 23:59 :00 No [id number] 1 tablet DAILY 1 tablet DAILY (route: oral) Med Classific ation: Gastroint estinal Therapy Agents ropinirole 0.25 mg tablet 04-30 00:00: 00 06-27 23:59 :00 No [id number] 1-4 tablet DIRECTED 1-4 tablet DIRECTED (route: oral) Med Classific ation: Central Nervous System Agents Rytary 36.25 mg-145 mg capsule,ext ended release 04-30 00:00: 00 06-27 23:59 :00 No [id number] 2 capsule 4 TIMES DAILY 2 capsule 4 TIMES DAILY (route: oral) Med Classific ation: Central Nervous System Agents venlafaxine ER 225 mg tablet,exte nded release 24 hr - 00:00: 00 06-27 23:59 :00 No [id number] 1 tablet BEDTIME 1 tablet BEDTIME (route: oral) Med Classific ation: Central Nervous System Agents amantadine HCl 100 mg capsule 3-04 00:00: 00 Yes [id number] 1 capsule DAILY 1 capsule DAILY (route: oral) Med Classific ation: Central Nervous System Agents clonazepam 0.5 mg tablet 3-04 00:00: 00 Yes [id number] 1 tablet BEDTIME 1 tablet BEDTIME (route: oral) Med Classific ation: Central Nervous System Agents Eliquis 5 mg tablet 3-04 00:00: 00 Yes [id number] 1 tablet 2 TIMES DAILY 1 tablet 2 TIMES DAILY (route: oral) Med Classific ation: Hematolog ical Agents finasteride 5 mg tablet 06-29 00:00: 00 Yes [id number] 1 tablet DAILY 1 tablet DAILY (route: oral) Med Classific ation: Genitouri nary Therapy gabapentin 100 mg capsule 06-29 00:00: 00 Yes [id number] 1 capsule DAILY 1 capsule DAILY (route: oral) Med Classific ation: Central Nervous System Agents gabapentin 300 mg capsule 06-29 00:00: 00 Yes [id number] 1 capsule BEDTIME 1 capsule BEDTIME (route: oral) Med Classific ation: Central Nervous System Agents mirtazapine 45 mg tablet 06-29 00:00: 00 Yes [id number] 1 tablet DAILY 1 tablet DAILY (route: oral) Med Classific ation: Central Nervous System Agents pantoprazol e 40 mg tablet,baltazar yed release 06-29 00:00: 00 10-21 23:59 :00 No [id number] 1 tablet DAILY 1 tablet DAILY (route: oral) Med Classific ation: Gastroint estinal Therapy Agents ropinirole 0.25 mg tablet 06-29 00:00: 00 Yes [id number] 2 tablet DAILY 2 tablet DAILY (route: oral) Med Classific ation: Central Nervous System Agents Rytary 36.25 mg-145 mg capsule,ext ended release 06-29 00:00: 00 Yes [id number] 3 capsule 4 TIMES DAILY 3 capsule 4 TIMES DAILY (route: oral) Med Classific ation: Central Nervous System Agents venlafaxine ER 225 mg tablet,exte nded release 24 hr 06-29 00:00: 00 Yes [id number] 1 tablet DAILY 1 tablet DAILY (route: oral) Med Classific ation: Central Nervous System Agents albuterol sulfate HFA 90 mcg/actuati on aerosol inhaler 06-29 00:00: 00 Yes [id number] 2 puff EVERY 6 HOURS 2 puff EVERY 6 HOURS (route: inhalation ) Med Classific ation: Respirato ry Therapy Agents Breo Ellipta 100 mcg-25 mcg/dose powder for inhalation 3-04 00:00: 00 Yes [id number] 1 inhalat ion DAILY 1 inhalation DAILY (route: inhalation ) Med Classific ation: Respirato ry Therapy Agents pantoprazol e 40 mg tablet,baltazar yed release 3- 00:00: 00 10-21 23:59 :00 No [id number] 1 tablet 2 TIMES DAILY 1 tablet 2 TIMES DAILY (route: oral) Med Classific ation: Gastroint estinal Therapy Agents fluconazole 200 mg tablet - 00:00: 00 Yes [id number] 200 mg DAILY 200 mg DAILY (route: oral) Alternate Route: SUBLINGUA L. Med Classific ation: Anti-Infe ctive Agents Carafate 100 mg/mL oral suspension 10-26 00:00: 00 Yes [id number] 10 mL 4 TIMES DAILY 10 mL 4 TIMES DAILY (route: oral) Med Classific ation: Gastroint estinal Therapy Agents Voquezna 20 mg tablet 10-26 00:00: 00 12-03 00:58 :03.3 47 No [id number] 1 tablet 2 TIMES DAILY 1 tablet 2 TIMES DAILY (route: oral) Med Classific ation: Gastroint estinal Therapy Agents Voquezna 20 mg tablet 10-21 00:00: 00 Yes [id number] 1 tablet 2 TIMES DAILY 1 tablet [...] BLOCKAGE/LEAKAGE, HEAVY SEDIMENT. 1 - 3 PRN LONGTERM VISITS FOR CATHETER CHANGE(S) AND/OR TROUBLESHOOTING. [code = SKILLED NURSE TO INSTRUCT PATIENT/CAREGIVER AND PERFORM CARE AND MANAGEMENT OF INDWELLING URINARY CATHETER. [place] CATHETER INSERTION WITH 18 FR CATHETER WITH 10 ML BALLOON VIA STERILE TECHNIQUE, CHANGE Q 4 WEEKS AND PRN FOR LEAKING OR MALFUNCTIONING CATHETER. IRRIGATE URINARY CATHETER WITH 30-60CC NORMAL SALINE PRN BLOCKAGE/LEAKAGE, HEAVY SEDIMENT. 1 - 3 PRN LONGTERM VISITS FOR CATHETER CHANGE(S) AND/OR TROUBLESHOOTING.] Future [...] MAINTAIN SITUATIONAL AWARENESS AND WILL NOTIFY CLINICAL CODING COMPLIANCE AUDITOR AND PHYSICIAN/PROVIDER WITH ANY CHANGE IN CONDITION. [code = SKILLED NURSE TO PERFORM ENVIRONMENTAL SAFETY RISK ASSESSMENT AND FALL RISK ASSESSMENT AND PROVIDE INSTRUCTION TO IMPLEMENT ENVIRONMENTAL SAFETY AND FALL PREVENTION STRATEGIES THROUGHOUT THE CERTIFICATION PERIOD. SKILLED NURSE WILL MAINTAIN SITUATIONAL AWARENESS AND WILL NOTIFY CLINICAL CODING COMPLIANCE AUDITOR AND PHYSICIAN/PROVIDER WITH ANY CHANGE IN CONDITION.] [...] PATIENT LIVING SITUATION/CAREGIVER STATUS: [facility] SUMMARIZE SKILLED NEED: DISEASE [...] CARE WILL BE ESTABLISHED THAT MEETS PATIENT'S LONGTERM NEEDS AND INCLUDES PATIENT GOAL FOR HOME [...] End Date/Time Encounter Type Admission Type Attending [facility] Care Department Encounter ID Discharge Date Discharge Status Discharge Condition Discharge Reason Percent Goals Met 2025-02-24 00:00:00 2025-04-24 00:00:00 Outpatient RECERTIFIC ATION DEMETRI SLAUGHTER [facility] [id number] 6.25
--- OUTSIDE RECORDS SUMMARY | 2025-04-23 19:00 | XMS_ITS | Clinical Summary ---
Author Organization Unknown Care Team Providers Care Felt Cutter Name Role Phone DARIAN DANGELO, ANYA Unavailable Unavaila aleisha CHRISTENSEN SEA SHELL GATHERER/ABORIGINAL LIAISON OFFICER, RENAN Unavailable Unava susie SLAUGHTER RN, DEMETRI Unavailable Unavailable Payers Payer Name Policy Type Policy Number Effective Date Expira tion Date MEDICARE - [facility] [place] - PD [id number] Problems Condition Name Condition Details Condition Category [...] OF URINARY DEVICE Active 04-28 00:00: 00 RETIREMENT (CURRENT) USE OF ANTICOAGULAN TS Active 04-28 [...] 01-11 00:00: 00 01-18 23:59 :00 No [id number] 1 tablet 2 TIMES DAILY 1 tablet 2 TIMES DAILY (route: oral) Med Classific ation: Anti-Infe ctive Agents lactulose 10 gram/15 mL oral solution 01-11 00:00: 00 04-01 23:59 :00 No [id number] 30 g DAILY 30 g DAILY (route: oral) Med Classific ation: Gastroint estinal Therapy Agents Rytary 36.25 mg-145 mg capsule,ext ended release 13 00:00: 00 04-01 23:59 :00 No [id number] 4 capsule 4 TIMES DAILY 4 capsule 4 TIMES DAILY (route: oral) Med Classific ation: Central Nervous System Agents Breo Ellipta 100 mcg-25 mcg/dose powder for inhalation - 00:00: 00 04-01 23:59 :00 No [id number] 1 inhalat ion ONCE DAILY 1 inhalation ONCE DAILY (route: inhalation ) Med Classific ation: Respirato ry Therapy Agents mirtazapine 45 mg tablet 12-12 00:00: 00 04-01 23:59 :00 No [id number] 1 tablet DAILY 1 tablet DAILY (route: oral) Med Classific ation: Central Nervous System Agents docusate sodium 100 mg capsule 16 00:00: 00 04-01 23:59 :00 No [id number] 1 capsule 2 TIMES DAILY 1 capsule 2 TIMES DAILY (route: oral) Med Classific ation: Gastroint estinal Therapy Agents Eliquis 5 mg tablet 10-26 00:00: 00 04-01 23:59 :00 No [id number] 1 tablet 2 TIMES DAILY 1 tablet 2 TIMES DAILY (route: oral) Med Classific ation: Hematolog ical Agents ferrous sulfate 325 mg (65 mg iron) tablet 10-26 00:00: 00 04-01 23:59 :00 No [id number] 1 tablet DAILY 1 tablet DAILY (route: oral) Med Classific ation: Electroly te Balance-N utritiona l Products finasteride 5 mg tablet 10-26 00:00: 00 04-01 23:59 :00 No [id number] 1 tablet DAILY 1 tablet DAILY (route: oral) Med Classific ation: Genitouri nary Therapy furosemide 40 mg tablet 10-26 00:00: 00 04-01 23:59 :00 No [id number] 1 tablet 2 TIMES DAILY 1 tablet 2 TIMES DAILY (route: oral) Med Classific ation: Cardiovas cular Therapy Agents magnesium 400 mg (as magnesium oxide) tablet 10-26 00:00: 00 04-01 23:59 :00 No [id number] 1 tablet DAILY 1 tablet DAILY (route: oral) Med Classific ation: Electroly te Balance-N utritiona l Products prednisolon e acetate 1 % eye drops,suspe nsion 10-26 00:00: 00 04-01 23:59 :00 No [id number] 1 drops 3 TIMES DAILY 1 drops 3 TIMES DAILY (route: ophthalmic (eye)) Med Classific ation: Ophthalmi c Agents ropinirole 0.25 mg tablet 09-28 00:00: 00 04-01 23:59 :00 No [id number] Per instruc tions DIRECTED Per instructio ns DIRECTED (route: oral) Med Classific ation: Central Nervous System Agents venlafaxine ER 225 mg tablet,exte nded release 24 hr 10-26 00:00: 00 04-01 23:59 :00 No [id number] 1 tablet DAILY 1 tablet DAILY (route: oral) Med Classific ation: Central Nervous System Agents Vitamin D3 125 mcg (5,000 unit) tablet 09-28 00:00: 00 04-01 23:59 :00 No [id number] 1 tablet DAILY 1 tablet DAILY (route: oral) Med Classific ation: Electroly te Balance-N utritiona l Products clonazepam 0.5 mg tablet 2023-04 0-11 00:00: 00 04-01 23:59 :00 No [id number] Per instruc tions BEDTIME Per instructio ns BEDTIME (route: oral) Med Classific ation: Central Nervous System Agents acetaminoph en 325 mg tablet 04-30 00:00: 00 06-27 23:59 :00 No [id number] 2 tablet EVERY 4 HOURS 2 tablet EVERY 4 HOURS (route: oral) Med Classific ation: Analgesic , Anti-infl ammatory or Antipyret ic albuterol sulfate HFA 90 mcg/actuati on aerosol inhaler 04-30 00:00: 00 06-27 23:59 :00 No [id number] 2 puff EVERY 6 HOURS 2 puff EVERY 6 HOURS (route: inhalation ) Med Classific ation: Respirato ry Therapy Agents amantadine HCl 100 mg tablet 04-30 00:00: 00 06-27 23:59 :00 No [id number] 1 tablet DAILY 1 tablet DAILY (route: oral) Med Classific ation: Central Nervous System Agents amoxicillin 500 mg capsule 04-30 00:00: 00 06-27 23:59 :00 No [id number] 4 capsule DIRECTED 4 capsule DIRECTED (route: oral) Med Classific ation: Anti-Infe ctive Agents Breo Ellipta 100 mcg-25 mcg/dose powder for inhalation 04-30 00:00: 00 06-27 23:59 :00 No [id number] 1 inhalat ion DAILY 1 inhalation DAILY (route: inhalation ) Med Classific ation: Respirato ry Therapy Agents clonazepam 0.5 mg tablet 04-30 00:00: 00 06-27 23:59 :00 No [id number] 1 tablet BEDTIME 1 tablet BEDTIME (route: oral) Med Classific ation: Central Nervous System Agents docusate sodium 100 mg capsule 04-30 00:00: 00 06-27 23:59 :00 No [id number] 1 capsule 2 TIMES DAILY 1 capsule 2 TIMES DAILY (route: oral) Med Classific ation: Gastroint estinal Therapy Agents Eliquis 5 mg tablet 04-30 00:00: 00 06-27 23:59 :00 No [id number] 1 tablet 2 TIMES DAILY 1 tablet 2 TIMES DAILY (route: oral) Med Classific ation: Hematolog ical Agents finasteride 5 mg tablet 04-30 00:00: 00 06-27 23:59 :00 No [id number] 1 tablet DAILY 1 tablet DAILY (route: oral) Med Classific ation: Genitouri nary Therapy gabapentin 100 mg capsule 04-30 00:00: 00 06-27 23:59 :00 No [id number] 1 capsule DAILY 1 capsule DAILY (route: oral) Med Classific ation: Central Nervous System Agents gabapentin 300 mg capsule - 00:00: 00 06-27 23:59 :00 No [id number] 1 capsule BEDTIME 1 capsule BEDTIME (route: oral) Med Classific ation: Central Nervous System Agents mirtazapine 45 mg tablet - 00:00: 00 06-27 23:59 :00 No [id number] 1 tablet BEDTIME 1 tablet BEDTIME (route: oral) Med Classific ation: Central Nervous System Agents pantoprazol e 40 mg tablet,baltazar yed release - 00:00: 00 06-27 23:59 :00 No [id number] 1 tablet DAILY 1 tablet DAILY (route: oral) Med Classific ation: Gastroint estinal Therapy Agents ropinirole 0.25 mg tablet 04-30 00:00: 00 06-27 23:59 :00 No [id number] 1-4 tablet DIRECTED 1-4 tablet DIRECTED (route: oral) Med Classific ation: Central Nervous System Agents Rytary 36.25 mg-145 mg capsule,ext ended release 04-30 00:00: 00 06-27 23:59 :00 No [id number] 2 capsule 4 TIMES DAILY 2 capsule 4 TIMES DAILY (route: oral) Med Classific ation: Central Nervous System Agents venlafaxine ER 225 mg tablet,exte nded release 24 hr - 00:00: 00 06-27 23:59 :00 No [id number] 1 tablet BEDTIME 1 tablet BEDTIME (route: oral) Med Classific ation: Central Nervous System Agents amantadine HCl 100 mg capsule 3-04 00:00: 00 Yes [id number] 1 capsule DAILY 1 capsule DAILY (route: oral) Med Classific ation: Central Nervous System Agents clonazepam 0.5 mg tablet 3-04 00:00: 00 Yes [id number] 1 tablet BEDTIME 1 tablet BEDTIME (route: oral) Med Classific ation: Central Nervous System Agents Eliquis 5 mg tablet 3-04 00:00: 00 Yes [id number] 1 tablet 2 TIMES DAILY 1 tablet 2 TIMES DAILY (route: oral) Med Classific ation: Hematolog ical Agents finasteride 5 mg tablet 06-29 00:00: 00 Yes [id number] 1 tablet DAILY 1 tablet DAILY (route: oral) Med Classific ation: Genitouri nary Therapy gabapentin 100 mg capsule 06-29 00:00: 00 Yes [id number] 1 capsule DAILY 1 capsule DAILY (route: oral) Med Classific ation: Central Nervous System Agents gabapentin 300 mg capsule 06-29 00:00: 00 Yes [id number] 1 capsule BEDTIME 1 capsule BEDTIME (route: oral) Med Classific ation: Central Nervous System Agents mirtazapine 45 mg tablet 06-29 00:00: 00 Yes [id number] 1 tablet DAILY 1 tablet DAILY (route: oral) Med Classific ation: Central Nervous System Agents pantoprazol e 40 mg tablet,baltazar yed release 06-29 00:00: 00 10-21 23:59 :00 No [id number] 1 tablet DAILY 1 tablet DAILY (route: oral) Med Classific ation: Gastroint estinal Therapy Agents ropinirole 0.25 mg tablet 06-29 00:00: 00 Yes [id number] 2 tablet DAILY 2 tablet DAILY (route: oral) Med Classific ation: Central Nervous System Agents Rytary 36.25 mg-145 mg capsule,ext ended release 06-29 00:00: 00 Yes [id number] 3 capsule 4 TIMES DAILY 3 capsule 4 TIMES DAILY (route: oral) Med Classific ation: Central Nervous System Agents venlafaxine ER 225 mg tablet,exte nded release 24 hr 06-29 00:00: 00 Yes [id number] 1 tablet DAILY 1 tablet DAILY (route: oral) Med Classific ation: Central Nervous System Agents albuterol sulfate HFA 90 mcg/actuati on aerosol inhaler 06-29 00:00: 00 Yes [id number] 2 puff EVERY 6 HOURS 2 puff EVERY 6 HOURS (route: inhalation ) Med Classific ation: Respirato ry Therapy Agents Breo Ellipta 100 mcg-25 mcg/dose powder for inhalation 3-04 00:00: 00 Yes [id number] 1 inhalat ion DAILY 1 inhalation DAILY (route: inhalation ) Med Classific ation: Respirato ry Therapy Agents pantoprazol e 40 mg tablet,baltazar yed release 3- 00:00: 00 10-21 23:59 :00 No [id number] 1 tablet 2 TIMES DAILY 1 tablet 2 TIMES DAILY (route: oral) Med Classific ation: Gastroint estinal Therapy Agents fluconazole 200 mg tablet - 00:00: 00 Yes [id number] 200 mg DAILY 200 mg DAILY (route: oral) Alternate Route: SUBLINGUA L. Med Classific ation: Anti-Infe ctive Agents Carafate 100 mg/mL oral suspension 10-26 00:00: 00 Yes [id number] 10 mL 4 TIMES DAILY 10 mL 4 TIMES DAILY (route: oral) Med Classific ation: Gastroint estinal Therapy Agents Voquezna 20 mg tablet 10-26 00:00: 00 12-03 00:58 :03.3 47 No [id number] 1 tablet 2 TIMES DAILY 1 tablet 2 TIMES DAILY (route: oral) Med Classific ation: Gastroint estinal Therapy Agents Voquezna 20 mg tablet 10-21 00:00: 00 Yes [id number] 1 tablet 2 TIMES DAILY 1 tablet [...] MAINTAIN SITUATIONAL AWARENESS AND WILL NOTIFY CLINICAL CLERK OF WORKS AND PHYSICIAN/PROVIDER WITH ANY CHANGE IN CONDITION. [code = SKILLED NURSE TO PERFORM ENVIRONMENTAL SAFETY RISK ASSESSMENT AND FALL RISK ASSESSMENT AND PROVIDE INSTRUCTION TO IMPLEMENT ENVIRONMENTAL SAFETY AND FALL PREVENTION STRATEGIES THROUGHOUT THE CERTIFICATION PERIOD. SKILLED NURSE WILL MAINTAIN SITUATIONAL AWARENESS AND WILL NOTIFY CLINICAL CLERK OF WORKS AND PHYSICIAN/PROVIDER WITH ANY CHANGE IN CONDITION.] [...] LIVING SITUATION/CAREGIVER STATUS: [facility] SUMMAR[facility] SKILLED NEED: DISEASE MANAGEMENT [...] End Date/Time Encounter Type Admission Type Attending [facility] Care Department Encounter ID Discharge Date Discharge Status Discharge Condition Discharge Reason Percent Goals Met 2025-02-24 00:00:00 2025-04-24 00:00:00 Outpatient RECERTIFIC ATION DEMETRI SLAUGHTER [facility] [id number] 6.25
--- OUTSIDE RECORDS SUMMARY | 2025-04-23 19:00 | XMS_ITS | Clinical Summary ---
Author Organization Unknown Care Team Providers Care Export Manager Name Role Phone DARIAN DANGELO, ANYA Unavailable Unavaila aleisha CHRISTENSEN RETAIL FIELD REPRESENTATIVE/DIRECTOR OF BUSINESS OPERATIONS, RENAN Unavailable Unava susie SLAUGHTER RN, DEMETRI Unavailable Unavailable Payers Payer Name Policy Type Policy Number Effective Date Expira tion Date MEDICARE - [facility] - PD [id number] Problems Condition Name Condition Details Condition Category [...] 01-11 00:00: 00 01-18 23:59 :00 No [id number] 1 tablet 2 TIMES DAILY 1 tablet 2 TIMES DAILY (route: oral) Med Classific ation: Anti-Infe ctive Agents lactulose 10 gram/15 mL oral solution 01-11 00:00: 00 04-01 23:59 :00 No [id number] 30 g DAILY 30 g DAILY (route: oral) Med Classific ation: Gastroint estinal Therapy Agents Rytary 36.25 mg-145 mg capsule,ext ended release 13 00:00: 00 04-01 23:59 :00 No [id number] 4 capsule 4 TIMES DAILY 4 capsule 4 TIMES DAILY (route: oral) Med Classific ation: Central Nervous System Agents Breo Ellipta 100 mcg-25 mcg/dose powder for inhalation - 00:00: 00 04-01 23:59 :00 No [id number] 1 inhalat ion ONCE DAILY 1 inhalation ONCE DAILY (route: inhalation ) Med Classific ation: Respirato ry Therapy Agents mirtazapine 45 mg tablet 12-12 00:00: 00 04-01 23:59 :00 No [id number] 1 tablet DAILY 1 tablet DAILY (route: oral) Med Classific ation: Central Nervous System Agents docusate sodium 100 mg capsule 16 00:00: 00 04-01 23:59 :00 No [id number] 1 capsule 2 TIMES DAILY 1 capsule 2 TIMES DAILY (route: oral) Med Classific ation: Gastroint estinal Therapy Agents Eliquis 5 mg tablet 10-26 00:00: 00 04-01 23:59 :00 No [id number] 1 tablet 2 TIMES DAILY 1 tablet 2 TIMES DAILY (route: oral) Med Classific ation: Hematolog ical Agents ferrous sulfate 325 mg (65 mg iron) tablet 10-26 00:00: 00 04-01 23:59 :00 No [id number] 1 tablet DAILY 1 tablet DAILY (route: oral) Med Classific ation: Electroly te Balance-N utritiona l Products finasteride 5 mg tablet 10-26 00:00: 00 04-01 23:59 :00 No [id number] 1 tablet DAILY 1 tablet DAILY (route: oral) Med Classific ation: Genitouri nary Therapy furosemide 40 mg tablet 10-26 00:00: 00 04-01 23:59 :00 No [id number] 1 tablet 2 TIMES DAILY 1 tablet 2 TIMES DAILY (route: oral) Med Classific ation: Cardiovas cular Therapy Agents magnesium 400 mg (as magnesium oxide) tablet 10-26 00:00: 00 04-01 23:59 :00 No [id number] 1 tablet DAILY 1 tablet DAILY (route: oral) Med Classific ation: Electroly te Balance-N utritiona l Products prednisolon e acetate 1 % eye drops,suspe nsion 10-26 00:00: 00 04-01 23:59 :00 No [id number] 1 drops 3 TIMES DAILY 1 drops 3 TIMES DAILY (route: ophthalmic (eye)) Med Classific ation: Ophthalmi c Agents ropinirole 0.25 mg tablet 09-28 00:00: 00 04-01 23:59 :00 No [id number] Per instruc tions DIRECTED Per instructio ns DIRECTED (route: oral) Med Classific ation: Central Nervous System Agents venlafaxine ER 225 mg tablet,exte nded release 24 hr 10-26 00:00: 00 04-01 23:59 :00 No [id number] 1 tablet DAILY 1 tablet DAILY (route: oral) Med Classific ation: Central Nervous System Agents Vitamin D3 125 mcg (5,000 unit) tablet 09-28 00:00: 00 04-01 23:59 :00 No [id number] 1 tablet DAILY 1 tablet DAILY (route: oral) Med Classific ation: Electroly te Balance-N utritiona l Products clonazepam 0.5 mg tablet 2023-04 0-11 00:00: 00 04-01 23:59 :00 No [id number] Per instruc tions BEDTIME Per instructio ns BEDTIME (route: oral) Med Classific ation: Central Nervous System Agents acetaminoph en 325 mg tablet 04-30 00:00: 00 06-27 23:59 :00 No [id number] 2 tablet EVERY 4 HOURS 2 tablet EVERY 4 HOURS (route: oral) Med Classific ation: Analgesic , Anti-infl ammatory or Antipyret ic albuterol sulfate HFA 90 mcg/actuati on aerosol inhaler 04-30 00:00: 00 06-27 23:59 :00 No [id number] 2 puff EVERY 6 HOURS 2 puff EVERY 6 HOURS (route: inhalation ) Med Classific ation: Respirato ry Therapy Agents amantadine HCl 100 mg tablet 04-30 00:00: 00 06-27 23:59 :00 No [id number] 1 tablet DAILY 1 tablet DAILY (route: oral) Med Classific ation: Central Nervous System Agents amoxicillin 500 mg capsule 04-30 00:00: 00 06-27 23:59 :00 No [id number] 4 capsule DIRECTED 4 capsule DIRECTED (route: oral) Med Classific ation: Anti-Infe ctive Agents Breo Ellipta 100 mcg-25 mcg/dose powder for inhalation 04-30 00:00: 00 06-27 23:59 :00 No [id number] 1 inhalat ion DAILY 1 inhalation DAILY (route: inhalation ) Med Classific ation: Respirato ry Therapy Agents clonazepam 0.5 mg tablet 04-30 00:00: 00 06-27 23:59 :00 No [id number] 1 tablet BEDTIME 1 tablet BEDTIME (route: oral) Med Classific ation: Central Nervous System Agents docusate sodium 100 mg capsule 04-30 00:00: 00 06-27 23:59 :00 No [id number] 1 capsule 2 TIMES DAILY 1 capsule 2 TIMES DAILY (route: oral) Med Classific ation: Gastroint estinal Therapy Agents Eliquis 5 mg tablet 04-30 00:00: 00 06-27 23:59 :00 No [id number] 1 tablet 2 TIMES DAILY 1 tablet 2 TIMES DAILY (route: oral) Med Classific ation: Hematolog ical Agents finasteride 5 mg tablet 04-30 00:00: 00 06-27 23:59 :00 No [id number] 1 tablet DAILY 1 tablet DAILY (route: oral) Med Classific ation: Genitouri nary Therapy gabapentin 100 mg capsule 04-30 00:00: 00 06-27 23:59 :00 No [id number] 1 capsule DAILY 1 capsule DAILY (route: oral) Med Classific ation: Central Nervous System Agents gabapentin 300 mg capsule - 00:00: 00 06-27 23:59 :00 No [id number] 1 capsule BEDTIME 1 capsule BEDTIME (route: oral) Med Classific ation: Central Nervous System Agents mirtazapine 45 mg tablet - 00:00: 00 06-27 23:59 :00 No [id number] 1 tablet BEDTIME 1 tablet BEDTIME (route: oral) Med Classific ation: Central Nervous System Agents pantoprazol e 40 mg tablet,baltazar yed release - 00:00: 00 06-27 23:59 :00 No [id number] 1 tablet DAILY 1 tablet DAILY (route: oral) Med Classific ation: Gastroint estinal Therapy Agents ropinirole 0.25 mg tablet 04-30 00:00: 00 06-27 23:59 :00 No [id number] 1-4 tablet DIRECTED 1-4 tablet DIRECTED (route: oral) Med Classific ation: Central Nervous System Agents Rytary 36.25 mg-145 mg capsule,ext ended release 04-30 00:00: 00 06-27 23:59 :00 No [id number] 2 capsule 4 TIMES DAILY 2 capsule 4 TIMES DAILY (route: oral) Med Classific ation: Central Nervous System Agents venlafaxine ER 225 mg tablet,exte nded release 24 hr - 00:00: 00 06-27 23:59 :00 No [id number] 1 tablet BEDTIME 1 tablet BEDTIME (route: oral) Med Classific ation: Central Nervous System Agents amantadine HCl 100 mg capsule 3-04 00:00: 00 Yes [id number] 1 capsule DAILY 1 capsule DAILY (route: oral) Med Classific ation: Central Nervous System Agents clonazepam 0.5 mg tablet 3-04 00:00: 00 Yes [id number] 1 tablet BEDTIME 1 tablet BEDTIME (route: oral) Med Classific ation: Central Nervous System Agents Eliquis 5 mg tablet 3-04 00:00: 00 Yes [id number] 1 tablet 2 TIMES DAILY 1 tablet 2 TIMES DAILY (route: oral) Med Classific ation: Hematolog ical Agents finasteride 5 mg tablet 06-29 00:00: 00 Yes [id number] 1 tablet DAILY 1 tablet DAILY (route: oral) Med Classific ation: Genitouri nary Therapy gabapentin 100 mg capsule 06-29 00:00: 00 Yes [id number] 1 capsule DAILY 1 capsule DAILY (route: oral) Med Classific ation: Central Nervous System Agents gabapentin 300 mg capsule 06-29 00:00: 00 Yes [id number] 1 capsule BEDTIME 1 capsule BEDTIME (route: oral) Med Classific ation: Central Nervous System Agents mirtazapine 45 mg tablet 06-29 00:00: 00 Yes [id number] 1 tablet DAILY 1 tablet DAILY (route: oral) Med Classific ation: Central Nervous System Agents pantoprazol e 40 mg tablet,baltazar yed release 06-29 00:00: 00 10-21 23:59 :00 No [id number] 1 tablet DAILY 1 tablet DAILY (route: oral) Med Classific ation: Gastroint estinal Therapy Agents ropinirole 0.25 mg tablet 06-29 00:00: 00 Yes [id number] 2 tablet DAILY 2 tablet DAILY (route: oral) Med Classific ation: Central Nervous System Agents Rytary 36.25 mg-145 mg capsule,ext ended release 06-29 00:00: 00 Yes [id number] 3 capsule 4 TIMES DAILY 3 capsule 4 TIMES DAILY (route: oral) Med Classific ation: Central Nervous System Agents venlafaxine ER 225 mg tablet,exte nded release 24 hr 06-29 00:00: 00 Yes [id number] 1 tablet DAILY 1 tablet DAILY (route: oral) Med Classific ation: Central Nervous System Agents albuterol sulfate HFA 90 mcg/actuati on aerosol inhaler 06-29 00:00: 00 Yes [id number] 2 puff EVERY 6 HOURS 2 puff EVERY 6 HOURS (route: inhalation ) Med Classific ation: Respirato ry Therapy Agents Breo Ellipta 100 mcg-25 mcg/dose powder for inhalation 3-04 00:00: 00 Yes [id number] 1 inhalat ion DAILY 1 inhalation DAILY (route: inhalation ) Med Classific ation: Respirato ry Therapy Agents pantoprazol e 40 mg tablet,baltazar yed release 3- 00:00: 00 10-21 23:59 :00 No [id number] 1 tablet 2 TIMES DAILY 1 tablet 2 TIMES DAILY (route: oral) Med Classific ation: Gastroint estinal Therapy Agents fluconazole 200 mg tablet - 00:00: 00 Yes [id number] 200 mg DAILY 200 mg DAILY (route: oral) Alternate Route: SUBLINGUA L. Med Classific ation: Anti-Infe ctive Agents Carafate 100 mg/mL oral suspension 10-26 00:00: 00 Yes [id number] 10 mL 4 TIMES DAILY 10 mL 4 TIMES DAILY (route: oral) Med Classific ation: Gastroint estinal Therapy Agents Voquezna 20 mg tablet 10-26 00:00: 00 12-03 00:58 :03.3 47 No [id number] 1 tablet 2 TIMES DAILY 1 tablet 2 TIMES DAILY (route: oral) Med Classific ation: Gastroint estinal Therapy Agents Voquezna 20 mg tablet 10-21 00:00: 00 Yes [id number] 1 tablet 2 TIMES DAILY 1 tablet [...] BLOCKAGE/LEAKAGE, HEAVY SEDIMENT. 1 - 3 PRN [facility] VISITS FOR CATHETER CHANGE(S) AND/OR TROUBLESHOOTING. [code = SKILLED NURSE TO INSTRUCT PATIENT/CAREGIVER AND PERFORM CARE AND MANAGEMENT OF INDWELLING URINARY CATHETER. [place] CATHETER INSERTION WITH 18 FR CATHETER WITH 10 ML BALLOON VIA STERILE TECHNIQUE, CHANGE Q 4 WEEKS AND PRN FOR LEAKING OR MALFUNCTIONING CATHETER. IRRIGATE URINARY CATHETER WITH 30-60CC NORMAL SALINE PRN BLOCKAGE/LEAKAGE, HEAVY SEDIMENT. 1 - 3 PRN [facility] VISITS FOR CATHETER CHANGE(S) AND/OR TROUBLESHOOTING.] Future [...] MAINTAIN SITUATIONAL AWARENESS AND WILL NOTIFY CLINICAL SCORER SINGLE AND PHYSICIAN/PROVIDER WITH ANY CHANGE IN CONDITION. [code = SKILLED NURSE TO PERFORM ENVIRONMENTAL SAFETY RISK ASSESSMENT AND FALL RISK ASSESSMENT AND PROVIDE INSTRUCTION TO IMPLEMENT ENVIRONMENTAL SAFETY AND FALL PREVENTION STRATEGIES THROUGHOUT THE CERTIFICATION PERIOD. SKILLED NURSE WILL MAINTAIN SITUATIONAL AWARENESS AND WILL NOTIFY CLINICAL SCORER SINGLE AND PHYSICIAN/PROVIDER WITH ANY CHANGE IN CONDITION.] [...] LASIX PATIENT LIVING SITUATION/CAREGIVER STATUS: [facility]MAR[facility] SKILLED NEED: DISEASE [...] CARE WILL BE ESTABLISHED THAT MEETS PATIENT'S [facility] NEEDS AND INCLUDES PATIENT GOAL FOR HOME [...] 2025-04-24 00:00:00 Outpatient RECERTIFIC ATION DEMETRI SLAUGHTER [facility] [id number] 6.25
--- OUTSIDE RECORDS SUMMARY | 2025-04-23 19:00 | XMS_ITS | Clinical Summary ---
Author Organization Unknown Care Team Providers Care Corporate Compliance Manager Name Role Phone DARIAN DANGELO, ANYA Unavailable Unavaila aleisha CHRISTENSEN STUNT DRIVER/REGISTERED NURSE FETAL, RENAN Unavailable Unava susie SLAUGHTER RN, DEMETRI Unavailable Unavailable Payers Payer Name Policy Type Policy Number Effective Date Expira tion Date MEDICARE - [facility] - PD [id number] Problems Condition Name Condition Details Condition Category [...] OF URINARY DEVICE Active 04-28 00:00: 00 CUSTODIAL (CURRENT) USE OF ANTICOAGULAN TS Active 04-28 [...] 01-11 00:00: 00 01-18 23:59 :00 No [id number] 1 tablet 2 TIMES DAILY 1 tablet 2 TIMES DAILY (route: oral) Med Classific ation: Anti-Infe ctive Agents lactulose 10 gram/15 mL oral solution 01-11 00:00: 00 04-01 23:59 :00 No [id number] 30 g DAILY 30 g DAILY (route: oral) Med Classific ation: Gastroint estinal Therapy Agents Rytary 36.25 mg-145 mg capsule,ext ended release 13 00:00: 00 04-01 23:59 :00 No [id number] 4 capsule 4 TIMES DAILY 4 capsule 4 TIMES DAILY (route: oral) Med Classific ation: Central Nervous System Agents Breo Ellipta 100 mcg-25 mcg/dose powder for inhalation - 00:00: 00 04-01 23:59 :00 No [id number] 1 inhalat ion ONCE DAILY 1 inhalation ONCE DAILY (route: inhalation ) Med Classific ation: Respirato ry Therapy Agents mirtazapine 45 mg tablet 12-12 00:00: 00 04-01 23:59 :00 No [id number] 1 tablet DAILY 1 tablet DAILY (route: oral) Med Classific ation: Central Nervous System Agents docusate sodium 100 mg capsule 16 00:00: 00 04-01 23:59 :00 No [id number] 1 capsule 2 TIMES DAILY 1 capsule 2 TIMES DAILY (route: oral) Med Classific ation: Gastroint estinal Therapy Agents Eliquis 5 mg tablet 10-26 00:00: 00 04-01 23:59 :00 No [id number] 1 tablet 2 TIMES DAILY 1 tablet 2 TIMES DAILY (route: oral) Med Classific ation: Hematolog ical Agents ferrous sulfate 325 mg (65 mg iron) tablet 10-26 00:00: 00 04-01 23:59 :00 No [id number] 1 tablet DAILY 1 tablet DAILY (route: oral) Med Classific ation: Electroly te Balance-N utritiona l Products finasteride 5 mg tablet 10-26 00:00: 00 04-01 23:59 :00 No [id number] 1 tablet DAILY 1 tablet DAILY (route: oral) Med Classific ation: Genitouri nary Therapy furosemide 40 mg tablet 10-26 00:00: 00 04-01 23:59 :00 No [id number] 1 tablet 2 TIMES DAILY 1 tablet 2 TIMES DAILY (route: oral) Med Classific ation: Cardiovas cular Therapy Agents magnesium 400 mg (as magnesium oxide) tablet 10-26 00:00: 00 04-01 23:59 :00 No [id number] 1 tablet DAILY 1 tablet DAILY (route: oral) Med Classific ation: Electroly te Balance-N utritiona l Products prednisolon e acetate 1 % eye drops,suspe nsion 10-26 00:00: 00 04-01 23:59 :00 No [id number] 1 drops 3 TIMES DAILY 1 drops 3 TIMES DAILY (route: ophthalmic (eye)) Med Classific ation: Ophthalmi c Agents ropinirole 0.25 mg tablet 09-28 00:00: 00 04-01 23:59 :00 No [id number] Per instruc tions DIRECTED Per instructio ns DIRECTED (route: oral) Med Classific ation: Central Nervous System Agents venlafaxine ER 225 mg tablet,exte nded release 24 hr 10-26 00:00: 00 04-01 23:59 :00 No [id number] 1 tablet DAILY 1 tablet DAILY (route: oral) Med Classific ation: Central Nervous System Agents Vitamin D3 125 mcg (5,000 unit) tablet 09-28 00:00: 00 04-01 23:59 :00 No [id number] 1 tablet DAILY 1 tablet DAILY (route: oral) Med Classific ation: Electroly te Balance-N utritiona l Products clonazepam 0.5 mg tablet 2023-04 0-11 00:00: 00 04-01 23:59 :00 No [id number] Per instruc tions BEDTIME Per instructio ns BEDTIME (route: oral) Med Classific ation: Central Nervous System Agents acetaminoph en 325 mg tablet 04-30 00:00: 00 06-27 23:59 :00 No [id number] 2 tablet EVERY 4 HOURS 2 tablet EVERY 4 HOURS (route: oral) Med Classific ation: Analgesic , Anti-infl ammatory or Antipyret ic albuterol sulfate HFA 90 mcg/actuati on aerosol inhaler 04-30 00:00: 00 06-27 23:59 :00 No [id number] 2 puff EVERY 6 HOURS 2 puff EVERY 6 HOURS (route: inhalation ) Med Classific ation: Respirato ry Therapy Agents amantadine HCl 100 mg tablet 04-30 00:00: 00 06-27 23:59 :00 No [id number] 1 tablet DAILY 1 tablet DAILY (route: oral) Med Classific ation: Central Nervous System Agents amoxicillin 500 mg capsule 04-30 00:00: 00 06-27 23:59 :00 No [id number] 4 capsule DIRECTED 4 capsule DIRECTED (route: oral) Med Classific ation: Anti-Infe ctive Agents Breo Ellipta 100 mcg-25 mcg/dose powder for inhalation 04-30 00:00: 00 06-27 23:59 :00 No [id number] 1 inhalat ion DAILY 1 inhalation DAILY (route: inhalation ) Med Classific ation: Respirato ry Therapy Agents clonazepam 0.5 mg tablet 04-30 00:00: 00 06-27 23:59 :00 No [id number] 1 tablet BEDTIME 1 tablet BEDTIME (route: oral) Med Classific ation: Central Nervous System Agents docusate sodium 100 mg capsule 04-30 00:00: 00 06-27 23:59 :00 No [id number] 1 capsule 2 TIMES DAILY 1 capsule 2 TIMES DAILY (route: oral) Med Classific ation: Gastroint estinal Therapy Agents Eliquis 5 mg tablet 04-30 00:00: 00 06-27 23:59 :00 No [id number] 1 tablet 2 TIMES DAILY 1 tablet 2 TIMES DAILY (route: oral) Med Classific ation: Hematolog ical Agents finasteride 5 mg tablet 04-30 00:00: 00 06-27 23:59 :00 No [id number] 1 tablet DAILY 1 tablet DAILY (route: oral) Med Classific ation: Genitouri nary Therapy gabapentin 100 mg capsule 04-30 00:00: 00 06-27 23:59 :00 No [id number] 1 capsule DAILY 1 capsule DAILY (route: oral) Med Classific ation: Central Nervous System Agents gabapentin 300 mg capsule - 00:00: 00 06-27 23:59 :00 No [id number] 1 capsule BEDTIME 1 capsule BEDTIME (route: oral) Med Classific ation: Central Nervous System Agents mirtazapine 45 mg tablet - 00:00: 00 06-27 23:59 :00 No [id number] 1 tablet BEDTIME 1 tablet BEDTIME (route: oral) Med Classific ation: Central Nervous System Agents pantoprazol e 40 mg tablet,baltazar yed release - 00:00: 00 06-27 23:59 :00 No [id number] 1 tablet DAILY 1 tablet DAILY (route: oral) Med Classific ation: Gastroint estinal Therapy Agents ropinirole 0.25 mg tablet 04-30 00:00: 00 06-27 23:59 :00 No [id number] 1-4 tablet DIRECTED 1-4 tablet DIRECTED (route: oral) Med Classific ation: Central Nervous System Agents Rytary 36.25 mg-145 mg capsule,ext ended release 04-30 00:00: 00 06-27 23:59 :00 No [id number] 2 capsule 4 TIMES DAILY 2 capsule 4 TIMES DAILY (route: oral) Med Classific ation: Central Nervous System Agents venlafaxine ER 225 mg tablet,exte nded release 24 hr - 00:00: 00 06-27 23:59 :00 No [id number] 1 tablet BEDTIME 1 tablet BEDTIME (route: oral) Med Classific ation: Central Nervous System Agents amantadine HCl 100 mg capsule 3-04 00:00: 00 Yes [id number] 1 capsule DAILY 1 capsule DAILY (route: oral) Med Classific ation: Central Nervous System Agents clonazepam 0.5 mg tablet 3-04 00:00: 00 Yes [id number] 1 tablet BEDTIME 1 tablet BEDTIME (route: oral) Med Classific ation: Central Nervous System Agents Eliquis 5 mg tablet 3-04 00:00: 00 Yes [id number] 1 tablet 2 TIMES DAILY 1 tablet 2 TIMES DAILY (route: oral) Med Classific ation: Hematolog ical Agents finasteride 5 mg tablet 06-29 00:00: 00 Yes [id number] 1 tablet DAILY 1 tablet DAILY (route: oral) Med Classific ation: Genitouri nary Therapy gabapentin 100 mg capsule 06-29 00:00: 00 Yes [id number] 1 capsule DAILY 1 capsule DAILY (route: oral) Med Classific ation: Central Nervous System Agents gabapentin 300 mg capsule 06-29 00:00: 00 Yes [id number] 1 capsule BEDTIME 1 capsule BEDTIME (route: oral) Med Classific ation: Central Nervous System Agents mirtazapine 45 mg tablet 06-29 00:00: 00 Yes [id number] 1 tablet DAILY 1 tablet DAILY (route: oral) Med Classific ation: Central Nervous System Agents pantoprazol e 40 mg tablet,baltazar yed release 06-29 00:00: 00 10-21 23:59 :00 No [id number] 1 tablet DAILY 1 tablet DAILY (route: oral) Med Classific ation: Gastroint estinal Therapy Agents ropinirole 0.25 mg tablet 06-29 00:00: 00 Yes [id number] 2 tablet DAILY 2 tablet DAILY (route: oral) Med Classific ation: Central Nervous System Agents Rytary 36.25 mg-145 mg capsule,ext ended release 06-29 00:00: 00 Yes [id number] 3 capsule 4 TIMES DAILY 3 capsule 4 TIMES DAILY (route: oral) Med Classific ation: Central Nervous System Agents venlafaxine ER 225 mg tablet,exte nded release 24 hr 06-29 00:00: 00 Yes [id number] 1 tablet DAILY 1 tablet DAILY (route: oral) Med Classific ation: Central Nervous System Agents albuterol sulfate HFA 90 mcg/actuati on aerosol inhaler 06-29 00:00: 00 Yes [id number] 2 puff EVERY 6 HOURS 2 puff EVERY 6 HOURS (route: inhalation ) Med Classific ation: Respirato ry Therapy Agents Breo Ellipta 100 mcg-25 mcg/dose powder for inhalation 3-04 00:00: 00 Yes [id number] 1 inhalat ion DAILY 1 inhalation DAILY (route: inhalation ) Med Classific ation: Respirato ry Therapy Agents pantoprazol e 40 mg tablet,baltazar yed release 3- 00:00: 00 10-21 23:59 :00 No [id number] 1 tablet 2 TIMES DAILY 1 tablet 2 TIMES DAILY (route: oral) Med Classific ation: Gastroint estinal Therapy Agents fluconazole 200 mg tablet - 00:00: 00 Yes [id number] 200 mg DAILY 200 mg DAILY (route: oral) Alternate Route: SUBLINGUA L. Med Classific ation: Anti-Infe ctive Agents Carafate 100 mg/mL oral suspension 10-26 00:00: 00 Yes [id number] 10 mL 4 TIMES DAILY 10 mL 4 TIMES DAILY (route: oral) Med Classific ation: Gastroint estinal Therapy Agents Voquezna 20 mg tablet 10-26 00:00: 00 12-03 00:58 :03.3 47 No [id number] 1 tablet 2 TIMES DAILY 1 tablet 2 TIMES DAILY (route: oral) Med Classific ation: Gastroint estinal Therapy Agents Voquezna 20 mg tablet 10-21 00:00: 00 Yes [id number] 1 tablet 2 TIMES DAILY 1 tablet [...] MAINTAIN SITUATIONAL AWARENESS AND WILL NOTIFY CLINICAL FIRER GLOST KILN AND PHYSICIAN/PROVIDER WITH ANY CHANGE IN CONDITION. [code = SKILLED NURSE TO PERFORM ENVIRONMENTAL SAFETY RISK ASSESSMENT AND FALL RISK ASSESSMENT AND PROVIDE INSTRUCTION TO IMPLEMENT ENVIRONMENTAL SAFETY AND FALL PREVENTION STRATEGIES THROUGHOUT THE CERTIFICATION PERIOD. SKILLED NURSE WILL MAINTAIN SITUATIONAL AWARENESS AND WILL NOTIFY CLINICAL FIRER GLOST KILN AND PHYSICIAN/PROVIDER WITH ANY CHANGE IN CONDITION.] [...] LASIX PATIENT LIVING SITUATION/CAREGIVER STATUS: [facility] SUMMAR[facility] SKILLED NEED: DISEASE [...] Date/Time Encounter Type Admission Type Attending [facility] Care Department Encounter ID Discharge Date Discharge Status Discharge Condition Discharge Reason Percent Goals Met 2025-02-24 00:00:00 2025-04-24 00:00:00 Outpatient RECERTIFIC ATION DEMETRI SLAUGHTER [facility] [id number] 6.25
--- OUTSIDE RECORDS SUMMARY | 2025-04-23 19:00 | XMS_ITS | Clinical Summary ---
Author Organization Unknown Care Team Providers Care Seed Pelleter Name Role Phone DARIAN DANGELO, ANYA Unavailable Unavaila aleisha CHRISTENSEN CREDENTIALING SPECIALIST/TOWEL SEWER, RENAN Unavailable Unava susie SLAUGHTER RN, DEMETRI Unavailable Unavailable Payers Payer Name Policy Type Policy Number Effective Date Expira tion Date MEDICARE - [facility] - PD [id number] Problems Condition Name Condition Details Condition Category [...] 01-11 00:00: 00 01-18 23:59 :00 No [id number] 1 tablet 2 TIMES DAILY 1 tablet 2 TIMES DAILY (route: oral) Med Classific ation: Anti-Infe ctive Agents lactulose 10 gram/15 mL oral solution 01-11 00:00: 00 04-01 23:59 :00 No [id number] 30 g DAILY 30 g DAILY (route: oral) Med Classific ation: Gastroint estinal Therapy Agents Rytary 36.25 mg-145 mg capsule,ext ended release 13 00:00: 00 04-01 23:59 :00 No [id number] 4 capsule 4 TIMES DAILY 4 capsule 4 TIMES DAILY (route: oral) Med Classific ation: Central Nervous System Agents Breo Ellipta 100 mcg-25 mcg/dose powder for inhalation - 00:00: 00 04-01 23:59 :00 No [id number] 1 inhalat ion ONCE DAILY 1 inhalation ONCE DAILY (route: inhalation ) Med Classific ation: Respirato ry Therapy Agents mirtazapine 45 mg tablet 12-12 00:00: 00 04-01 23:59 :00 No [id number] 1 tablet DAILY 1 tablet DAILY (route: oral) Med Classific ation: Central Nervous System Agents docusate sodium 100 mg capsule 16 00:00: 00 04-01 23:59 :00 No [id number] 1 capsule 2 TIMES DAILY 1 capsule 2 TIMES DAILY (route: oral) Med Classific ation: Gastroint estinal Therapy Agents Eliquis 5 mg tablet 10-26 00:00: 00 04-01 23:59 :00 No [id number] 1 tablet 2 TIMES DAILY 1 tablet 2 TIMES DAILY (route: oral) Med Classific ation: Hematolog ical Agents ferrous sulfate 325 mg (65 mg iron) tablet 10-26 00:00: 00 04-01 23:59 :00 No [id number] 1 tablet DAILY 1 tablet DAILY (route: oral) Med Classific ation: Electroly te Balance-N utritiona l Products finasteride 5 mg tablet 10-26 00:00: 00 04-01 23:59 :00 No [id number] 1 tablet DAILY 1 tablet DAILY (route: oral) Med Classific ation: Genitouri nary Therapy furosemide 40 mg tablet 10-26 00:00: 00 04-01 23:59 :00 No [id number] 1 tablet 2 TIMES DAILY 1 tablet 2 TIMES DAILY (route: oral) Med Classific ation: Cardiovas cular Therapy Agents magnesium 400 mg (as magnesium oxide) tablet 10-26 00:00: 00 04-01 23:59 :00 No [id number] 1 tablet DAILY 1 tablet DAILY (route: oral) Med Classific ation: Electroly te Balance-N utritiona l Products prednisolon e acetate 1 % eye drops,suspe nsion 10-26 00:00: 00 04-01 23:59 :00 No [id number] 1 drops 3 TIMES DAILY 1 drops 3 TIMES DAILY (route: ophthalmic (eye)) Med Classific ation: Ophthalmi c Agents ropinirole 0.25 mg tablet 09-28 00:00: 00 04-01 23:59 :00 No [id number] Per instruc tions DIRECTED Per instructio ns DIRECTED (route: oral) Med Classific ation: Central Nervous System Agents venlafaxine ER 225 mg tablet,exte nded release 24 hr 10-26 00:00: 00 04-01 23:59 :00 No [id number] 1 tablet DAILY 1 tablet DAILY (route: oral) Med Classific ation: Central Nervous System Agents Vitamin D3 125 mcg (5,000 unit) tablet 09-28 00:00: 00 04-01 23:59 :00 No [id number] 1 tablet DAILY 1 tablet DAILY (route: oral) Med Classific ation: Electroly te Balance-N utritiona l Products clonazepam 0.5 mg tablet 2023-04 0-11 00:00: 00 04-01 23:59 :00 No [id number] Per instruc tions BEDTIME Per instructio ns BEDTIME (route: oral) Med Classific ation: Central Nervous System Agents acetaminoph en 325 mg tablet 04-30 00:00: 00 06-27 23:59 :00 No [id number] 2 tablet EVERY 4 HOURS 2 tablet EVERY 4 HOURS (route: oral) Med Classific ation: Analgesic , Anti-infl ammatory or Antipyret ic albuterol sulfate HFA 90 mcg/actuati on aerosol inhaler 04-30 00:00: 00 06-27 23:59 :00 No [id number] 2 puff EVERY 6 HOURS 2 puff EVERY 6 HOURS (route: inhalation ) Med Classific ation: Respirato ry Therapy Agents amantadine HCl 100 mg tablet 04-30 00:00: 00 06-27 23:59 :00 No [id number] 1 tablet DAILY 1 tablet DAILY (route: oral) Med Classific ation: Central Nervous System Agents amoxicillin 500 mg capsule 04-30 00:00: 00 06-27 23:59 :00 No [id number] 4 capsule DIRECTED 4 capsule DIRECTED (route: oral) Med Classific ation: Anti-Infe ctive Agents Breo Ellipta 100 mcg-25 mcg/dose powder for inhalation 04-30 00:00: 00 06-27 23:59 :00 No [id number] 1 inhalat ion DAILY 1 inhalation DAILY (route: inhalation ) Med Classific ation: Respirato ry Therapy Agents clonazepam 0.5 mg tablet 04-30 00:00: 00 06-27 23:59 :00 No [id number] 1 tablet BEDTIME 1 tablet BEDTIME (route: oral) Med Classific ation: Central Nervous System Agents docusate sodium 100 mg capsule 04-30 00:00: 00 06-27 23:59 :00 No [id number] 1 capsule 2 TIMES DAILY 1 capsule 2 TIMES DAILY (route: oral) Med Classific ation: Gastroint estinal Therapy Agents Eliquis 5 mg tablet 04-30 00:00: 00 06-27 23:59 :00 No [id number] 1 tablet 2 TIMES DAILY 1 tablet 2 TIMES DAILY (route: oral) Med Classific ation: Hematolog ical Agents finasteride 5 mg tablet 04-30 00:00: 00 06-27 23:59 :00 No [id number] 1 tablet DAILY 1 tablet DAILY (route: oral) Med Classific ation: Genitouri nary Therapy gabapentin 100 mg capsule 04-30 00:00: 00 06-27 23:59 :00 No [id number] 1 capsule DAILY 1 capsule DAILY (route: oral) Med Classific ation: Central Nervous System Agents gabapentin 300 mg capsule - 00:00: 00 06-27 23:59 :00 No [id number] 1 capsule BEDTIME 1 capsule BEDTIME (route: oral) Med Classific ation: Central Nervous System Agents mirtazapine 45 mg tablet - 00:00: 00 06-27 23:59 :00 No [id number] 1 tablet BEDTIME 1 tablet BEDTIME (route: oral) Med Classific ation: Central Nervous System Agents pantoprazol e 40 mg tablet,baltazar yed release - 00:00: 00 06-27 23:59 :00 No [id number] 1 tablet DAILY 1 tablet DAILY (route: oral) Med Classific ation: Gastroint estinal Therapy Agents ropinirole 0.25 mg tablet 04-30 00:00: 00 06-27 23:59 :00 No [id number] 1-4 tablet DIRECTED 1-4 tablet DIRECTED (route: oral) Med Classific ation: Central Nervous System Agents Rytary 36.25 mg-145 mg capsule,ext ended release 04-30 00:00: 00 06-27 23:59 :00 No [id number] 2 capsule 4 TIMES DAILY 2 capsule 4 TIMES DAILY (route: oral) Med Classific ation: Central Nervous System Agents venlafaxine ER 225 mg tablet,exte nded release 24 hr - 00:00: 00 06-27 23:59 :00 No [id number] 1 tablet BEDTIME 1 tablet BEDTIME (route: oral) Med Classific ation: Central Nervous System Agents amantadine HCl 100 mg capsule 3-04 00:00: 00 Yes [id number] 1 capsule DAILY 1 capsule DAILY (route: oral) Med Classific ation: Central Nervous System Agents clonazepam 0.5 mg tablet 3-04 00:00: 00 Yes [id number] 1 tablet BEDTIME 1 tablet BEDTIME (route: oral) Med Classific ation: Central Nervous System Agents Eliquis 5 mg tablet 3-04 00:00: 00 Yes [id number] 1 tablet 2 TIMES DAILY 1 tablet 2 TIMES DAILY (route: oral) Med Classific ation: Hematolog ical Agents finasteride 5 mg tablet 06-29 00:00: 00 Yes [id number] 1 tablet DAILY 1 tablet DAILY (route: oral) Med Classific ation: Genitouri nary Therapy gabapentin 100 mg capsule 06-29 00:00: 00 Yes [id number] 1 capsule DAILY 1 capsule DAILY (route: oral) Med Classific ation: Central Nervous System Agents gabapentin 300 mg capsule 06-29 00:00: 00 Yes [id number] 1 capsule BEDTIME 1 capsule BEDTIME (route: oral) Med Classific ation: Central Nervous System Agents mirtazapine 45 mg tablet 06-29 00:00: 00 Yes [id number] 1 tablet DAILY 1 tablet DAILY (route: oral) Med Classific ation: Central Nervous System Agents pantoprazol e 40 mg tablet,baltazar yed release 06-29 00:00: 00 10-21 23:59 :00 No [id number] 1 tablet DAILY 1 tablet DAILY (route: oral) Med Classific ation: Gastroint estinal Therapy Agents ropinirole 0.25 mg tablet 06-29 00:00: 00 Yes [id number] 2 tablet DAILY 2 tablet DAILY (route: oral) Med Classific ation: Central Nervous System Agents Rytary 36.25 mg-145 mg capsule,ext ended release 06-29 00:00: 00 Yes [id number] 3 capsule 4 TIMES DAILY 3 capsule 4 TIMES DAILY (route: oral) Med Classific ation: Central Nervous System Agents venlafaxine ER 225 mg tablet,exte nded release 24 hr 06-29 00:00: 00 Yes [id number] 1 tablet DAILY 1 tablet DAILY (route: oral) Med Classific ation: Central Nervous System Agents albuterol sulfate HFA 90 mcg/actuati on aerosol inhaler 06-29 00:00: 00 Yes [id number] 2 puff EVERY 6 HOURS 2 puff EVERY 6 HOURS (route: inhalation ) Med Classific ation: Respirato ry Therapy Agents Breo Ellipta 100 mcg-25 mcg/dose powder for inhalation 3-04 00:00: 00 Yes [id number] 1 inhalat ion DAILY 1 inhalation DAILY (route: inhalation ) Med Classific ation: Respirato ry Therapy Agents pantoprazol e 40 mg tablet,baltazar yed release 3- 00:00: 00 10-21 23:59 :00 No [id number] 1 tablet 2 TIMES DAILY 1 tablet 2 TIMES DAILY (route: oral) Med Classific ation: Gastroint estinal Therapy Agents fluconazole 200 mg tablet - 00:00: 00 Yes [id number] 200 mg DAILY 200 mg DAILY (route: oral) Alternate Route: SUBLINGUA L. Med Classific ation: Anti-Infe ctive Agents Carafate 100 mg/mL oral suspension 10-26 00:00: 00 Yes [id number] 10 mL 4 TIMES DAILY 10 mL 4 TIMES DAILY (route: oral) Med Classific ation: Gastroint estinal Therapy Agents Voquezna 20 mg tablet 10-26 00:00: 00 12-03 00:58 :03.3 47 No [id number] 1 tablet 2 TIMES DAILY 1 tablet 2 TIMES DAILY (route: oral) Med Classific ation: Gastroint estinal Therapy Agents Voquezna 20 mg tablet 10-21 00:00: 00 Yes [id number] 1 tablet 2 TIMES DAILY 1 tablet [...] MAINTAIN SITUATIONAL AWARENESS AND WILL NOTIFY CLINICAL TARE WORKER AND PHYSICIAN/PROVIDER WITH ANY CHANGE IN CONDITION. [code = SKILLED NURSE TO PERFORM ENVIRONMENTAL SAFETY RISK ASSESSMENT AND FALL RISK ASSESSMENT AND PROVIDE INSTRUCTION TO IMPLEMENT ENVIRONMENTAL SAFETY AND FALL PREVENTION STRATEGIES THROUGHOUT THE CERTIFICATION PERIOD. SKILLED NURSE WILL MAINTAIN SITUATIONAL AWARENESS AND WILL NOTIFY CLINICAL TARE WORKER AND PHYSICIAN/PROVIDER WITH ANY CHANGE IN CONDITION.] [...] LASIX PATIENT LIVING SITUATION/CAREGIVER STATUS[facility] SKILLED NEED: [...] Date/Time Encounter Type Admission Type Attending [facility] Care Department Encounter ID Discharge Date Discharge Status Discharge Condition Discharge Reason Percent Goals Met 2025-02-24 00:00:00 2025-04-24 00:00:00 Outpatient RECERTIFIC ATION DEMETRI SLAUGHTER [facility] [id number] 6.25
--- OUTSIDE RECORDS SUMMARY | 2025-04-23 19:00 | XMS_ITS | Clinical Summary ---
Author Organization Unknown Care Team Providers Care Maintenance Craftsman Name Role Phone DARIAN DANGELO, ANYA Unavailable Unavaila aleisha CHRISTENSEN TETRYL SCREEN OPERATOR/BELLY DUMP DRIVER, RENAN Unavailable Unava susie SLAUGHTER RN, DEMETRI Unavailable Unavailable Payers Payer Name Policy Type Policy Number Effective Date Expira tion Date MEDICARE - [facility] - PD [id number] Problems Condition Name Condition Details Condition Category [...] 01-11 00:00: 00 01-18 23:59 :00 No [id number] 1 tablet 2 TIMES DAILY 1 tablet 2 TIMES DAILY (route: oral) Med Classific ation: Anti-Infe ctive Agents lactulose 10 gram/15 mL oral solution 01-11 00:00: 00 04-01 23:59 :00 No [id number] 30 g DAILY 30 g DAILY (route: oral) Med Classific ation: Gastroint estinal Therapy Agents Rytary 36.25 mg-145 mg capsule,ext ended release 13 00:00: 00 04-01 23:59 :00 No [id number] 4 capsule 4 TIMES DAILY 4 capsule 4 TIMES DAILY (route: oral) Med Classific ation: Central Nervous System Agents Breo Ellipta 100 mcg-25 mcg/dose powder for inhalation - 00:00: 00 04-01 23:59 :00 No [id number] 1 inhalat ion ONCE DAILY 1 inhalation ONCE DAILY (route: inhalation ) Med Classific ation: Respirato ry Therapy Agents mirtazapine 45 mg tablet 12-12 00:00: 00 04-01 23:59 :00 No [id number] 1 tablet DAILY 1 tablet DAILY (route: oral) Med Classific ation: Central Nervous System Agents docusate sodium 100 mg capsule 16 00:00: 00 04-01 23:59 :00 No [id number] 1 capsule 2 TIMES DAILY 1 capsule 2 TIMES DAILY (route: oral) Med Classific ation: Gastroint estinal Therapy Agents Eliquis 5 mg tablet 10-26 00:00: 00 04-01 23:59 :00 No [id number] 1 tablet 2 TIMES DAILY 1 tablet 2 TIMES DAILY (route: oral) Med Classific ation: Hematolog ical Agents ferrous sulfate 325 mg (65 mg iron) tablet 10-26 00:00: 00 04-01 23:59 :00 No [id number] 1 tablet DAILY 1 tablet DAILY (route: oral) Med Classific ation: Electroly te Balance-N utritiona l Products finasteride 5 mg tablet 10-26 00:00: 00 04-01 23:59 :00 No [id number] 1 tablet DAILY 1 tablet DAILY (route: oral) Med Classific ation: Genitouri nary Therapy furosemide 40 mg tablet 10-26 00:00: 00 04-01 23:59 :00 No [id number] 1 tablet 2 TIMES DAILY 1 tablet 2 TIMES DAILY (route: oral) Med Classific ation: Cardiovas cular Therapy Agents magnesium 400 mg (as magnesium oxide) tablet 10-26 00:00: 00 04-01 23:59 :00 No [id number] 1 tablet DAILY 1 tablet DAILY (route: oral) Med Classific ation: Electroly te Balance-N utritiona l Products prednisolon e acetate 1 % eye drops,suspe nsion 10-26 00:00: 00 04-01 23:59 :00 No [id number] 1 drops 3 TIMES DAILY 1 drops 3 TIMES DAILY (route: ophthalmic (eye)) Med Classific ation: Ophthalmi c Agents ropinirole 0.25 mg tablet 09-28 00:00: 00 04-01 23:59 :00 No [id number] Per instruc tions DIRECTED Per instructio ns DIRECTED (route: oral) Med Classific ation: Central Nervous System Agents venlafaxine ER 225 mg tablet,exte nded release 24 hr 10-26 00:00: 00 04-01 23:59 :00 No [id number] 1 tablet DAILY 1 tablet DAILY (route: oral) Med Classific ation: Central Nervous System Agents Vitamin D3 125 mcg (5,000 unit) tablet 09-28 00:00: 00 04-01 23:59 :00 No [id number] 1 tablet DAILY 1 tablet DAILY (route: oral) Med Classific ation: Electroly te Balance-N utritiona l Products clonazepam 0.5 mg tablet 2023-04 0-11 00:00: 00 04-01 23:59 :00 No [id number] Per instruc tions BEDTIME Per instructio ns BEDTIME (route: oral) Med Classific ation: Central Nervous System Agents acetaminoph en 325 mg tablet 04-30 00:00: 00 06-27 23:59 :00 No [id number] 2 tablet EVERY 4 HOURS 2 tablet EVERY 4 HOURS (route: oral) Med Classific ation: Analgesic , Anti-infl ammatory or Antipyret ic albuterol sulfate HFA 90 mcg/actuati on aerosol inhaler 04-30 00:00: 00 06-27 23:59 :00 No [id number] 2 puff EVERY 6 HOURS 2 puff EVERY 6 HOURS (route: inhalation ) Med Classific ation: Respirato ry Therapy Agents amantadine HCl 100 mg tablet 04-30 00:00: 00 06-27 23:59 :00 No [id number] 1 tablet DAILY 1 tablet DAILY (route: oral) Med Classific ation: Central Nervous System Agents amoxicillin 500 mg capsule 04-30 00:00: 00 06-27 23:59 :00 No [id number] 4 capsule DIRECTED 4 capsule DIRECTED (route: oral) Med Classific ation: Anti-Infe ctive Agents Breo Ellipta 100 mcg-25 mcg/dose powder for inhalation 04-30 00:00: 00 06-27 23:59 :00 No [id number] 1 inhalat ion DAILY 1 inhalation DAILY (route: inhalation ) Med Classific ation: Respirato ry Therapy Agents clonazepam 0.5 mg tablet 04-30 00:00: 00 06-27 23:59 :00 No [id number] 1 tablet BEDTIME 1 tablet BEDTIME (route: oral) Med Classific ation: Central Nervous System Agents docusate sodium 100 mg capsule 04-30 00:00: 00 06-27 23:59 :00 No [id number] 1 capsule 2 TIMES DAILY 1 capsule 2 TIMES DAILY (route: oral) Med Classific ation: Gastroint estinal Therapy Agents Eliquis 5 mg tablet 04-30 00:00: 00 06-27 23:59 :00 No [id number] 1 tablet 2 TIMES DAILY 1 tablet 2 TIMES DAILY (route: oral) Med Classific ation: Hematolog ical Agents finasteride 5 mg tablet 04-30 00:00: 00 06-27 23:59 :00 No [id number] 1 tablet DAILY 1 tablet DAILY (route: oral) Med Classific ation: Genitouri nary Therapy gabapentin 100 mg capsule 04-30 00:00: 00 06-27 23:59 :00 No [id number] 1 capsule DAILY 1 capsule DAILY (route: oral) Med Classific ation: Central Nervous System Agents gabapentin 300 mg capsule - 00:00: 00 06-27 23:59 :00 No [id number] 1 capsule BEDTIME 1 capsule BEDTIME (route: oral) Med Classific ation: Central Nervous System Agents mirtazapine 45 mg tablet - 00:00: 00 06-27 23:59 :00 No [id number] 1 tablet BEDTIME 1 tablet BEDTIME (route: oral) Med Classific ation: Central Nervous System Agents pantoprazol e 40 mg tablet,baltazar yed release - 00:00: 00 06-27 23:59 :00 No [id number] 1 tablet DAILY 1 tablet DAILY (route: oral) Med Classific ation: Gastroint estinal Therapy Agents ropinirole 0.25 mg tablet 04-30 00:00: 00 06-27 23:59 :00 No [id number] 1-4 tablet DIRECTED 1-4 tablet DIRECTED (route: oral) Med Classific ation: Central Nervous System Agents Rytary 36.25 mg-145 mg capsule,ext ended release 04-30 00:00: 00 06-27 23:59 :00 No [id number] 2 capsule 4 TIMES DAILY 2 capsule 4 TIMES DAILY (route: oral) Med Classific ation: Central Nervous System Agents venlafaxine ER 225 mg tablet,exte nded release 24 hr - 00:00: 00 06-27 23:59 :00 No [id number] 1 tablet BEDTIME 1 tablet BEDTIME (route: oral) Med Classific ation: Central Nervous System Agents amantadine HCl 100 mg capsule 3-04 00:00: 00 Yes [id number] 1 capsule DAILY 1 capsule DAILY (route: oral) Med Classific ation: Central Nervous System Agents clonazepam 0.5 mg tablet 3-04 00:00: 00 Yes [id number] 1 tablet BEDTIME 1 tablet BEDTIME (route: oral) Med Classific ation: Central Nervous System Agents Eliquis 5 mg tablet 3-04 00:00: 00 Yes [id number] 1 tablet 2 TIMES DAILY 1 tablet 2 TIMES DAILY (route: oral) Med Classific ation: Hematolog ical Agents finasteride 5 mg tablet 06-29 00:00: 00 Yes [id number] 1 tablet DAILY 1 tablet DAILY (route: oral) Med Classific ation: Genitouri nary Therapy gabapentin 100 mg capsule 06-29 00:00: 00 Yes [id number] 1 capsule DAILY 1 capsule DAILY (route: oral) Med Classific ation: Central Nervous System Agents gabapentin 300 mg capsule 06-29 00:00: 00 Yes [id number] 1 capsule BEDTIME 1 capsule BEDTIME (route: oral) Med Classific ation: Central Nervous System Agents mirtazapine 45 mg tablet 06-29 00:00: 00 Yes [id number] 1 tablet DAILY 1 tablet DAILY (route: oral) Med Classific ation: Central Nervous System Agents pantoprazol e 40 mg tablet,baltazar yed release 06-29 00:00: 00 10-21 23:59 :00 No [id number] 1 tablet DAILY 1 tablet DAILY (route: oral) Med Classific ation: Gastroint estinal Therapy Agents ropinirole 0.25 mg tablet 06-29 00:00: 00 Yes [id number] 2 tablet DAILY 2 tablet DAILY (route: oral) Med Classific ation: Central Nervous System Agents Rytary 36.25 mg-145 mg capsule,ext ended release 06-29 00:00: 00 Yes [id number] 3 capsule 4 TIMES DAILY 3 capsule 4 TIMES DAILY (route: oral) Med Classific ation: Central Nervous System Agents venlafaxine ER 225 mg tablet,exte nded release 24 hr 06-29 00:00: 00 Yes [id number] 1 tablet DAILY 1 tablet DAILY (route: oral) Med Classific ation: Central Nervous System Agents albuterol sulfate HFA 90 mcg/actuati on aerosol inhaler 06-29 00:00: 00 Yes [id number] 2 puff EVERY 6 HOURS 2 puff EVERY 6 HOURS (route: inhalation ) Med Classific ation: Respirato ry Therapy Agents Breo Ellipta 100 mcg-25 mcg/dose powder for inhalation 3-04 00:00: 00 Yes [id number] 1 inhalat ion DAILY 1 inhalation DAILY (route: inhalation ) Med Classific ation: Respirato ry Therapy Agents pantoprazol e 40 mg tablet,baltazar yed release 3- 00:00: 00 10-21 23:59 :00 No [id number] 1 tablet 2 TIMES DAILY 1 tablet 2 TIMES DAILY (route: oral) Med Classific ation: Gastroint estinal Therapy Agents fluconazole 200 mg tablet - 00:00: 00 Yes [id number] 200 mg DAILY 200 mg DAILY (route: oral) Alternate Route: SUBLINGUA L. Med Classific ation: Anti-Infe ctive Agents Carafate 100 mg/mL oral suspension 10-26 00:00: 00 Yes [id number] 10 mL 4 TIMES DAILY 10 mL 4 TIMES DAILY (route: oral) Med Classific ation: Gastroint estinal Therapy Agents Voquezna 20 mg tablet 10-26 00:00: 00 12-03 00:58 :03.3 47 No [id number] 1 tablet 2 TIMES DAILY 1 tablet 2 TIMES DAILY (route: oral) Med Classific ation: Gastroint estinal Therapy Agents Voquezna 20 mg tablet 10-21 00:00: 00 Yes [id number] 1 tablet 2 TIMES DAILY 1 tablet [...] MAINTAIN SITUATIONAL AWARENESS AND WILL NOTIFY CLINICAL UTILITY BILL COMPLAINTS INVESTIGATOR AND PHYSICIAN/PROVIDER WITH ANY CHANGE IN CONDITION. [code = SKILLED NURSE TO PERFORM ENVIRONMENTAL SAFETY RISK ASSESSMENT AND FALL RISK ASSESSMENT AND PROVIDE INSTRUCTION TO IMPLEMENT ENVIRONMENTAL SAFETY AND FALL PREVENTION STRATEGIES THROUGHOUT THE CERTIFICATION PERIOD. SKILLED NURSE WILL MAINTAIN SITUATIONAL AWARENESS AND WILL NOTIFY CLINICAL UTILITY BILL COMPLAINTS INVESTIGATOR AND PHYSICIAN/PROVIDER WITH ANY CHANGE IN CONDITION.] [...] PATIENT LIVING SITUATION/CAREGIVER STATUS: [facility] SUMMAR[facility] SKILLED NEED: [...] End Date/Time Encounter Type Admission Type Attending [facility] Care Department Encounter ID Discharge Date Discharge Status Discharge Condition Discharge Reason Percent Goals Met 2025-02-24 00:00:00 2025-04-24 00:00:00 Outpatient RECERTIFIC ATION DEMETRI SLAUGHTER [facility] [id number] 6.25
--- OUTSIDE RECORDS SUMMARY | 2025-04-23 19:00 | XMS_ITS | Clinical Summary ---
Author Organization Unknown Care Team Providers Care Lapel Padder Name Role Phone DARIAN DANGELO, ANYA Unavailable Unavaila aleisha CHRISTENSEN TROLLEY CLEANER/SPECIAL EDUCATION INCLUSION TEACHER, RENAN Unavailable Unava susie SLAUGHTER RN, DEMETRI Unavailable Unavailable Payers Payer Name Policy Type Policy Number Effective Date Expira tion Date MEDICARE - [facility] - PD [id number] Problems Condition Name Condition Details Condition Category [...] 01-11 00:00: 00 01-18 23:59 :00 No [id number] 1 tablet 2 TIMES DAILY 1 tablet 2 TIMES DAILY (route: oral) Med Classific ation: Anti-Infe ctive Agents lactulose 10 gram/15 mL oral solution 01-11 00:00: 00 04-01 23:59 :00 No [id number] 30 g DAILY 30 g DAILY (route: oral) Med Classific ation: Gastroint estinal Therapy Agents Rytary 36.25 mg-145 mg capsule,ext ended release 13 00:00: 00 04-01 23:59 :00 No [id number] 4 capsule 4 TIMES DAILY 4 capsule 4 TIMES DAILY (route: oral) Med Classific ation: Central Nervous System Agents Breo Ellipta 100 mcg-25 mcg/dose powder for inhalation - 00:00: 00 04-01 23:59 :00 No [id number] 1 inhalat ion ONCE DAILY 1 inhalation ONCE DAILY (route: inhalation ) Med Classific ation: Respirato ry Therapy Agents mirtazapine 45 mg tablet 12-12 00:00: 00 04-01 23:59 :00 No [id number] 1 tablet DAILY 1 tablet DAILY (route: oral) Med Classific ation: Central Nervous System Agents docusate sodium 100 mg capsule 16 00:00: 00 04-01 23:59 :00 No [id number] 1 capsule 2 TIMES DAILY 1 capsule 2 TIMES DAILY (route: oral) Med Classific ation: Gastroint estinal Therapy Agents Eliquis 5 mg tablet 10-26 00:00: 00 04-01 23:59 :00 No [id number] 1 tablet 2 TIMES DAILY 1 tablet 2 TIMES DAILY (route: oral) Med Classific ation: Hematolog ical Agents ferrous sulfate 325 mg (65 mg iron) tablet 10-26 00:00: 00 04-01 23:59 :00 No [id number] 1 tablet DAILY 1 tablet DAILY (route: oral) Med Classific ation: Electroly te Balance-N utritiona l Products finasteride 5 mg tablet 10-26 00:00: 00 04-01 23:59 :00 No [id number] 1 tablet DAILY 1 tablet DAILY (route: oral) Med Classific ation: Genitouri nary Therapy furosemide 40 mg tablet 10-26 00:00: 00 04-01 23:59 :00 No [id number] 1 tablet 2 TIMES DAILY 1 tablet 2 TIMES DAILY (route: oral) Med Classific ation: Cardiovas cular Therapy Agents magnesium 400 mg (as magnesium oxide) tablet 10-26 00:00: 00 04-01 23:59 :00 No [id number] 1 tablet DAILY 1 tablet DAILY (route: oral) Med Classific ation: Electroly te Balance-N utritiona l Products prednisolon e acetate 1 % eye drops,suspe nsion 10-26 00:00: 00 04-01 23:59 :00 No [id number] 1 drops 3 TIMES DAILY 1 drops 3 TIMES DAILY (route: ophthalmic (eye)) Med Classific ation: Ophthalmi c Agents ropinirole 0.25 mg tablet 09-28 00:00: 00 04-01 23:59 :00 No [id number] Per instruc tions DIRECTED Per instructio ns DIRECTED (route: oral) Med Classific ation: Central Nervous System Agents venlafaxine ER 225 mg tablet,exte nded release 24 hr 10-26 00:00: 00 04-01 23:59 :00 No [id number] 1 tablet DAILY 1 tablet DAILY (route: oral) Med Classific ation: Central Nervous System Agents Vitamin D3 125 mcg (5,000 unit) tablet 09-28 00:00: 00 04-01 23:59 :00 No [id number] 1 tablet DAILY 1 tablet DAILY (route: oral) Med Classific ation: Electroly te Balance-N utritiona l Products clonazepam 0.5 mg tablet 2023-04 0-11 00:00: 00 04-01 23:59 :00 No [id number] Per instruc tions BEDTIME Per instructio ns BEDTIME (route: oral) Med Classific ation: Central Nervous System Agents acetaminoph en 325 mg tablet 04-30 00:00: 00 06-27 23:59 :00 No [id number] 2 tablet EVERY 4 HOURS 2 tablet EVERY 4 HOURS (route: oral) Med Classific ation: Analgesic , Anti-infl ammatory or Antipyret ic albuterol sulfate HFA 90 mcg/actuati on aerosol inhaler 04-30 00:00: 00 06-27 23:59 :00 No [id number] 2 puff EVERY 6 HOURS 2 puff EVERY 6 HOURS (route: inhalation ) Med Classific ation: Respirato ry Therapy Agents amantadine HCl 100 mg tablet 04-30 00:00: 00 06-27 23:59 :00 No [id number] 1 tablet DAILY 1 tablet DAILY (route: oral) Med Classific ation: Central Nervous System Agents amoxicillin 500 mg capsule 04-30 00:00: 00 06-27 23:59 :00 No [id number] 4 capsule DIRECTED 4 capsule DIRECTED (route: oral) Med Classific ation: Anti-Infe ctive Agents Breo Ellipta 100 mcg-25 mcg/dose powder for inhalation 04-30 00:00: 00 06-27 23:59 :00 No [id number] 1 inhalat ion DAILY 1 inhalation DAILY (route: inhalation ) Med Classific ation: Respirato ry Therapy Agents clonazepam 0.5 mg tablet 04-30 00:00: 00 06-27 23:59 :00 No [id number] 1 tablet BEDTIME 1 tablet BEDTIME (route: oral) Med Classific ation: Central Nervous System Agents docusate sodium 100 mg capsule 04-30 00:00: 00 06-27 23:59 :00 No [id number] 1 capsule 2 TIMES DAILY 1 capsule 2 TIMES DAILY (route: oral) Med Classific ation: Gastroint estinal Therapy Agents Eliquis 5 mg tablet 04-30 00:00: 00 06-27 23:59 :00 No [id number] 1 tablet 2 TIMES DAILY 1 tablet 2 TIMES DAILY (route: oral) Med Classific ation: Hematolog ical Agents finasteride 5 mg tablet 04-30 00:00: 00 06-27 23:59 :00 No [id number] 1 tablet DAILY 1 tablet DAILY (route: oral) Med Classific ation: Genitouri nary Therapy gabapentin 100 mg capsule 04-30 00:00: 00 06-27 23:59 :00 No [id number] 1 capsule DAILY 1 capsule DAILY (route: oral) Med Classific ation: Central Nervous System Agents gabapentin 300 mg capsule - 00:00: 00 06-27 23:59 :00 No [id number] 1 capsule BEDTIME 1 capsule BEDTIME (route: oral) Med Classific ation: Central Nervous System Agents mirtazapine 45 mg tablet - 00:00: 00 06-27 23:59 :00 No [id number] 1 tablet BEDTIME 1 tablet BEDTIME (route: oral) Med Classific ation: Central Nervous System Agents pantoprazol e 40 mg tablet,baltazar yed release - 00:00: 00 06-27 23:59 :00 No [id number] 1 tablet DAILY 1 tablet DAILY (route: oral) Med Classific ation: Gastroint estinal Therapy Agents ropinirole 0.25 mg tablet 04-30 00:00: 00 06-27 23:59 :00 No [id number] 1-4 tablet DIRECTED 1-4 tablet DIRECTED (route: oral) Med Classific ation: Central Nervous System Agents Rytary 36.25 mg-145 mg capsule,ext ended release 04-30 00:00: 00 06-27 23:59 :00 No [id number] 2 capsule 4 TIMES DAILY 2 capsule 4 TIMES DAILY (route: oral) Med Classific ation: Central Nervous System Agents venlafaxine ER 225 mg tablet,exte nded release 24 hr - 00:00: 00 06-27 23:59 :00 No [id number] 1 tablet BEDTIME 1 tablet BEDTIME (route: oral) Med Classific ation: Central Nervous System Agents amantadine HCl 100 mg capsule 3-04 00:00: 00 Yes [id number] 1 capsule DAILY 1 capsule DAILY (route: oral) Med Classific ation: Central Nervous System Agents clonazepam 0.5 mg tablet 3-04 00:00: 00 Yes [id number] 1 tablet BEDTIME 1 tablet BEDTIME (route: oral) Med Classific ation: Central Nervous System Agents Eliquis 5 mg tablet 3-04 00:00: 00 Yes [id number] 1 tablet 2 TIMES DAILY 1 tablet 2 TIMES DAILY (route: oral) Med Classific ation: Hematolog ical Agents finasteride 5 mg tablet 06-29 00:00: 00 Yes [id number] 1 tablet DAILY 1 tablet DAILY (route: oral) Med Classific ation: Genitouri nary Therapy gabapentin 100 mg capsule 06-29 00:00: 00 Yes [id number] 1 capsule DAILY 1 capsule DAILY (route: oral) Med Classific ation: Central Nervous System Agents gabapentin 300 mg capsule 06-29 00:00: 00 Yes [id number] 1 capsule BEDTIME 1 capsule BEDTIME (route: oral) Med Classific ation: Central Nervous System Agents mirtazapine 45 mg tablet 06-29 00:00: 00 Yes [id number] 1 tablet DAILY 1 tablet DAILY (route: oral) Med Classific ation: Central Nervous System Agents pantoprazol e 40 mg tablet,baltazar yed release 06-29 00:00: 00 10-21 23:59 :00 No [id number] 1 tablet DAILY 1 tablet DAILY (route: oral) Med Classific ation: Gastroint estinal Therapy Agents ropinirole 0.25 mg tablet 06-29 00:00: 00 Yes [id number] 2 tablet DAILY 2 tablet DAILY (route: oral) Med Classific ation: Central Nervous System Agents Rytary 36.25 mg-145 mg capsule,ext ended release 06-29 00:00: 00 Yes [id number] 3 capsule 4 TIMES DAILY 3 capsule 4 TIMES DAILY (route: oral) Med Classific ation: Central Nervous System Agents venlafaxine ER 225 mg tablet,exte nded release 24 hr 06-29 00:00: 00 Yes [id number] 1 tablet DAILY 1 tablet DAILY (route: oral) Med Classific ation: Central Nervous System Agents albuterol sulfate HFA 90 mcg/actuati on aerosol inhaler 06-29 00:00: 00 Yes [id number] 2 puff EVERY 6 HOURS 2 puff EVERY 6 HOURS (route: inhalation ) Med Classific ation: Respirato ry Therapy Agents Breo Ellipta 100 mcg-25 mcg/dose powder for inhalation 3-04 00:00: 00 Yes [id number] 1 inhalat ion DAILY 1 inhalation DAILY (route: inhalation ) Med Classific ation: Respirato ry Therapy Agents pantoprazol e 40 mg tablet,baltazar yed release 3- 00:00: 00 10-21 23:59 :00 No [id number] 1 tablet 2 TIMES DAILY 1 tablet 2 TIMES DAILY (route: oral) Med Classific ation: Gastroint estinal Therapy Agents fluconazole 200 mg tablet - 00:00: 00 Yes [id number] 200 mg DAILY 200 mg DAILY (route: oral) Alternate Route: SUBLINGUA L. Med Classific ation: Anti-Infe ctive Agents Carafate 100 mg/mL oral suspension 10-26 00:00: 00 Yes [id number] 10 mL 4 TIMES DAILY 10 mL 4 TIMES DAILY (route: oral) Med Classific ation: Gastroint estinal Therapy Agents Voquezna 20 mg tablet 10-26 00:00: 00 12-03 00:58 :03.3 47 No [id number] 1 tablet 2 TIMES DAILY 1 tablet 2 TIMES DAILY (route: oral) Med Classific ation: Gastroint estinal Therapy Agents Voquezna 20 mg tablet 10-21 00:00: 00 Yes [id number] 1 tablet 2 TIMES DAILY 1 tablet [...] MAINTAIN SITUATIONAL AWARENESS AND WILL NOTIFY CLINICAL PRESS DEPARTMENT MANAGER AND PHYSICIAN/PROVIDER WITH ANY CHANGE IN CONDITION. [code = SKILLED NURSE TO PERFORM ENVIRONMENTAL SAFETY RISK ASSESSMENT AND FALL RISK ASSESSMENT AND PROVIDE INSTRUCTION TO IMPLEMENT ENVIRONMENTAL SAFETY AND FALL PREVENTION STRATEGIES THROUGHOUT THE CERTIFICATION PERIOD. SKILLED NURSE WILL MAINTAIN SITUATIONAL AWARENESS AND WILL NOTIFY CLINICAL PRESS DEPARTMENT MANAGER AND PHYSICIAN/PROVIDER WITH ANY CHANGE IN [...] EARLY INTERVENTION.] Future Scheduled Test CLINICAL S JCAKLYN (SOC/RECERT, 10 DAY, 60 DAY):RECERT THE PATIENT IS RECEIVING HOMECARE DUE TO NEW ONSET/EXACERBATION OF: [facility] RECENT HOSPITALIZATION/INPATIENT ADMISSION RELATED TO: NEW OR CHANGED MEDICATIONS PERTINENT TO THE PLAN OF CARE: LASIX PATIENT LIVING SITUATION/CAREGIVER STATUS[facility] SUMMAR[facility] SKILLED NEED: DISEASE MANAGEMENT [...] End Date/Time Encounter Type Admission Type Attending [facility] Care Department Encounter ID Discharge Date Discharge Status Discharge Condition Discharge Reason Percent Goals Met 2025-02-24 00:00:00 2025-04-24 00:00:00 Outpatient RECERTIFIC ATION DEMETRI SLAUGHTER [facility] [id number] 6.25
--- OUTSIDE RECORDS SUMMARY | 2025-04-23 19:00 | XMS_ITS | Clinical Summary ---
Author Organization Unknown Care Team Providers Care Agricultural Service Worker Name Role Phone DARIAN DANGELO, ANYA Unavailable Unavaila aleisha CHRISTENSEN VIDEO EFFECTS EDITOR/SENIOR COST ANALYST, RENAN Unavailable Unava susie SLAUGHTER RN, DEMETRI Unavailable Unavailable Payers Payer Name Policy Type Policy Number Effective Date Expira tion Date MEDICARE - [facility] [place] - PD [id number] Problems Condition Name Condition Details Condition Category [...] 01-11 00:00: 00 01-18 23:59 :00 No [id number] 1 tablet 2 TIMES DAILY 1 tablet 2 TIMES DAILY (route: oral) Med Classific ation: Anti-Infe ctive Agents lactulose 10 gram/15 mL oral solution 01-11 00:00: 00 04-01 23:59 :00 No [id number] 30 g DAILY 30 g DAILY (route: oral) Med Classific ation: Gastroint estinal Therapy Agents Rytary 36.25 mg-145 mg capsule,ext ended release 13 00:00: 00 04-01 23:59 :00 No [id number] 4 capsule 4 TIMES DAILY 4 capsule 4 TIMES DAILY (route: oral) Med Classific ation: Central Nervous System Agents Breo Ellipta 100 mcg-25 mcg/dose powder for inhalation - 00:00: 00 04-01 23:59 :00 No [id number] 1 inhalat ion ONCE DAILY 1 inhalation ONCE DAILY (route: inhalation ) Med Classific ation: Respirato ry Therapy Agents mirtazapine 45 mg tablet 12-12 00:00: 00 04-01 23:59 :00 No [id number] 1 tablet DAILY 1 tablet DAILY (route: oral) Med Classific ation: Central Nervous System Agents docusate sodium 100 mg capsule 16 00:00: 00 04-01 23:59 :00 No [id number] 1 capsule 2 TIMES DAILY 1 capsule 2 TIMES DAILY (route: oral) Med Classific ation: Gastroint estinal Therapy Agents Eliquis 5 mg tablet 10-26 00:00: 00 04-01 23:59 :00 No [id number] 1 tablet 2 TIMES DAILY 1 tablet 2 TIMES DAILY (route: oral) Med Classific ation: Hematolog ical Agents ferrous sulfate 325 mg (65 mg iron) tablet 10-26 00:00: 00 04-01 23:59 :00 No [id number] 1 tablet DAILY 1 tablet DAILY (route: oral) Med Classific ation: Electroly te Balance-N utritiona l Products finasteride 5 mg tablet 10-26 00:00: 00 04-01 23:59 :00 No [id number] 1 tablet DAILY 1 tablet DAILY (route: oral) Med Classific ation: Genitouri nary Therapy furosemide 40 mg tablet 10-26 00:00: 00 04-01 23:59 :00 No [id number] 1 tablet 2 TIMES DAILY 1 tablet 2 TIMES DAILY (route: oral) Med Classific ation: Cardiovas cular Therapy Agents magnesium 400 mg (as magnesium oxide) tablet 10-26 00:00: 00 04-01 23:59 :00 No [id number] 1 tablet DAILY 1 tablet DAILY (route: oral) Med Classific ation: Electroly te Balance-N utritiona l Products prednisolon e acetate 1 % eye drops,suspe nsion 10-26 00:00: 00 04-01 23:59 :00 No [id number] 1 drops 3 TIMES DAILY 1 drops 3 TIMES DAILY (route: ophthalmic (eye)) Med Classific ation: Ophthalmi c Agents ropinirole 0.25 mg tablet 09-28 00:00: 00 04-01 23:59 :00 No [id number] Per instruc tions DIRECTED Per instructio ns DIRECTED (route: oral) Med Classific ation: Central Nervous System Agents venlafaxine ER 225 mg tablet,exte nded release 24 hr 10-26 00:00: 00 04-01 23:59 :00 No [id number] 1 tablet DAILY 1 tablet DAILY (route: oral) Med Classific ation: Central Nervous System Agents Vitamin D3 125 mcg (5,000 unit) tablet 09-28 00:00: 00 04-01 23:59 :00 No [id number] 1 tablet DAILY 1 tablet DAILY (route: oral) Med Classific ation: Electroly te Balance-N utritiona l Products clonazepam 0.5 mg tablet 2023-04 0-11 00:00: 00 04-01 23:59 :00 No [id number] Per instruc tions BEDTIME Per instructio ns BEDTIME (route: oral) Med Classific ation: Central Nervous System Agents acetaminoph en 325 mg tablet 04-30 00:00: 00 06-27 23:59 :00 No [id number] 2 tablet EVERY 4 HOURS 2 tablet EVERY 4 HOURS (route: oral) Med Classific ation: Analgesic , Anti-infl ammatory or Antipyret ic albuterol sulfate HFA 90 mcg/actuati on aerosol inhaler 04-30 00:00: 00 06-27 23:59 :00 No [id number] 2 puff EVERY 6 HOURS 2 puff EVERY 6 HOURS (route: inhalation ) Med Classific ation: Respirato ry Therapy Agents amantadine HCl 100 mg tablet 04-30 00:00: 00 06-27 23:59 :00 No [id number] 1 tablet DAILY 1 tablet DAILY (route: oral) Med Classific ation: Central Nervous System Agents amoxicillin 500 mg capsule 04-30 00:00: 00 06-27 23:59 :00 No [id number] 4 capsule DIRECTED 4 capsule DIRECTED (route: oral) Med Classific ation: Anti-Infe ctive Agents Breo Ellipta 100 mcg-25 mcg/dose powder for inhalation 04-30 00:00: 00 06-27 23:59 :00 No [id number] 1 inhalat ion DAILY 1 inhalation DAILY (route: inhalation ) Med Classific ation: Respirato ry Therapy Agents clonazepam 0.5 mg tablet 04-30 00:00: 00 06-27 23:59 :00 No [id number] 1 tablet BEDTIME 1 tablet BEDTIME (route: oral) Med Classific ation: Central Nervous System Agents docusate sodium 100 mg capsule 04-30 00:00: 00 06-27 23:59 :00 No [id number] 1 capsule 2 TIMES DAILY 1 capsule 2 TIMES DAILY (route: oral) Med Classific ation: Gastroint estinal Therapy Agents Eliquis 5 mg tablet 04-30 00:00: 00 06-27 23:59 :00 No [id number] 1 tablet 2 TIMES DAILY 1 tablet 2 TIMES DAILY (route: oral) Med Classific ation: Hematolog ical Agents finasteride 5 mg tablet 04-30 00:00: 00 06-27 23:59 :00 No [id number] 1 tablet DAILY 1 tablet DAILY (route: oral) Med Classific ation: Genitouri nary Therapy gabapentin 100 mg capsule 04-30 00:00: 00 06-27 23:59 :00 No [id number] 1 capsule DAILY 1 capsule DAILY (route: oral) Med Classific ation: Central Nervous System Agents gabapentin 300 mg capsule - 00:00: 00 06-27 23:59 :00 No [id number] 1 capsule BEDTIME 1 capsule BEDTIME (route: oral) Med Classific ation: Central Nervous System Agents mirtazapine 45 mg tablet - 00:00: 00 06-27 23:59 :00 No [id number] 1 tablet BEDTIME 1 tablet BEDTIME (route: oral) Med Classific ation: Central Nervous System Agents pantoprazol e 40 mg tablet,baltazar yed release - 00:00: 00 06-27 23:59 :00 No [id number] 1 tablet DAILY 1 tablet DAILY (route: oral) Med Classific ation: Gastroint estinal Therapy Agents ropinirole 0.25 mg tablet 04-30 00:00: 00 06-27 23:59 :00 No [id number] 1-4 tablet DIRECTED 1-4 tablet DIRECTED (route: oral) Med Classific ation: Central Nervous System Agents Rytary 36.25 mg-145 mg capsule,ext ended release 04-30 00:00: 00 06-27 23:59 :00 No [id number] 2 capsule 4 TIMES DAILY 2 capsule 4 TIMES DAILY (route: oral) Med Classific ation: Central Nervous System Agents venlafaxine ER 225 mg tablet,exte nded release 24 hr - 00:00: 00 06-27 23:59 :00 No [id number] 1 tablet BEDTIME 1 tablet BEDTIME (route: oral) Med Classific ation: Central Nervous System Agents amantadine HCl 100 mg capsule 3-04 00:00: 00 Yes [id number] 1 capsule DAILY 1 capsule DAILY (route: oral) Med Classific ation: Central Nervous System Agents clonazepam 0.5 mg tablet 3-04 00:00: 00 Yes [id number] 1 tablet BEDTIME 1 tablet BEDTIME (route: oral) Med Classific ation: Central Nervous System Agents Eliquis 5 mg tablet 3-04 00:00: 00 Yes [id number] 1 tablet 2 TIMES DAILY 1 tablet 2 TIMES DAILY (route: oral) Med Classific ation: Hematolog ical Agents finasteride 5 mg tablet 06-29 00:00: 00 Yes [id number] 1 tablet DAILY 1 tablet DAILY (route: oral) Med Classific ation: Genitouri nary Therapy gabapentin 100 mg capsule 06-29 00:00: 00 Yes [id number] 1 capsule DAILY 1 capsule DAILY (route: oral) Med Classific ation: Central Nervous System Agents gabapentin 300 mg capsule 06-29 00:00: 00 Yes [id number] 1 capsule BEDTIME 1 capsule BEDTIME (route: oral) Med Classific ation: Central Nervous System Agents mirtazapine 45 mg tablet 06-29 00:00: 00 Yes [id number] 1 tablet DAILY 1 tablet DAILY (route: oral) Med Classific ation: Central Nervous System Agents pantoprazol e 40 mg tablet,baltazar yed release 06-29 00:00: 00 10-21 23:59 :00 No [id number] 1 tablet DAILY 1 tablet DAILY (route: oral) Med Classific ation: Gastroint estinal Therapy Agents ropinirole 0.25 mg tablet 06-29 00:00: 00 Yes [id number] 2 tablet DAILY 2 tablet DAILY (route: oral) Med Classific ation: Central Nervous System Agents Rytary 36.25 mg-145 mg capsule,ext ended release 06-29 00:00: 00 Yes [id number] 3 capsule 4 TIMES DAILY 3 capsule 4 TIMES DAILY (route: oral) Med Classific ation: Central Nervous System Agents venlafaxine ER 225 mg tablet,exte nded release 24 hr 06-29 00:00: 00 Yes [id number] 1 tablet DAILY 1 tablet DAILY (route: oral) Med Classific ation: Central Nervous System Agents albuterol sulfate HFA 90 mcg/actuati on aerosol inhaler 06-29 00:00: 00 Yes [id number] 2 puff EVERY 6 HOURS 2 puff EVERY 6 HOURS (route: inhalation ) Med Classific ation: Respirato ry Therapy Agents Breo Ellipta 100 mcg-25 mcg/dose powder for inhalation 3-04 00:00: 00 Yes [id number] 1 inhalat ion DAILY 1 inhalation DAILY (route: inhalation ) Med Classific ation: Respirato ry Therapy Agents pantoprazol e 40 mg tablet,baltazar yed release 3- 00:00: 00 10-21 23:59 :00 No [id number] 1 tablet 2 TIMES DAILY 1 tablet 2 TIMES DAILY (route: oral) Med Classific ation: Gastroint estinal Therapy Agents fluconazole 200 mg tablet - 00:00: 00 Yes [id number] 200 mg DAILY 200 mg DAILY (route: oral) Alternate Route: SUBLINGUA L. Med Classific ation: Anti-Infe ctive Agents Carafate 100 mg/mL oral suspension 10-26 00:00: 00 Yes [id number] 10 mL 4 TIMES DAILY 10 mL 4 TIMES DAILY (route: oral) Med Classific ation: Gastroint estinal Therapy Agents Voquezna 20 mg tablet 10-26 00:00: 00 12-03 00:58 :03.3 47 No [id number] 1 tablet 2 TIMES DAILY 1 tablet 2 TIMES DAILY (route: oral) Med Classific ation: Gastroint estinal Therapy Agents Voquezna 20 mg tablet 10-21 00:00: 00 Yes [id number] 1 tablet 2 TIMES DAILY 1 tablet [...] MAINTAIN SITUATIONAL AWARENESS AND WILL NOTIFY CLINICAL UNEMPLOYMENT SPECIALIST AND PHYSICIAN/PROVIDER WITH ANY CHANGE IN CONDITION. [code = SKILLED NURSE TO PERFORM ENVIRONMENTAL SAFETY RISK ASSESSMENT AND FALL RISK ASSESSMENT AND PROVIDE INSTRUCTION TO IMPLEMENT ENVIRONMENTAL SAFETY AND FALL PREVENTION STRATEGIES THROUGHOUT THE CERTIFICATION PERIOD. SKILLED NURSE WILL MAINTAIN SITUATIONAL AWARENESS AND WILL NOTIFY CLINICAL UNEMPLOYMENT SPECIALIST AND PHYSICIAN/PROVIDER WITH ANY CHANGE IN CONDITION.] [...] End Date/Time Encounter Type Admission Type Attending [facility] [place] Care Department Encounter ID Discharge Date Discharge Status Discharge Condition Discharge Reason Percent Goals Met 2025-02-24 00:00:00 2025-04-24 00:00:00 Outpatient RECERTIFIC ATION DEMETRI SLAUGHTER [facility] [id number] 6.25
--- OUTSIDE RECORDS SUMMARY | 2025-04-23 19:00 | XMS_ITS | Clinical Summary ---
Author Organization Unknown Care Team Providers Care Assistant Therapy Aide Name Role Phone DARIAN DANGELO, ANYA Unavailable Unavaila aleisha CHRISTENSEN MACHINE BENDER/CAR PUSHER, RENAN Unavailable Unava susie SLAUGHTER RN, DEMETRI Unavailable Unavailable Payers Payer Name Policy Type Policy Number Effective Date Expira tion Date MEDICARE - [facility] - PD [id number] Problems Condition Name Condition Details Condition Category [...] 01-11 00:00: 00 01-18 23:59 :00 No [id number] 1 tablet 2 TIMES DAILY 1 tablet 2 TIMES DAILY (route: oral) Med Classific ation: Anti-Infe ctive Agents lactulose 10 gram/15 mL oral solution 01-11 00:00: 00 04-01 23:59 :00 No [id number] 30 g DAILY 30 g DAILY (route: oral) Med Classific ation: Gastroint estinal Therapy Agents Rytary 36.25 mg-145 mg capsule,ext ended release 13 00:00: 00 04-01 23:59 :00 No [id number] 4 capsule 4 TIMES DAILY 4 capsule 4 TIMES DAILY (route: oral) Med Classific ation: Central Nervous System Agents Breo Ellipta 100 mcg-25 mcg/dose powder for inhalation - 00:00: 00 04-01 23:59 :00 No [id number] 1 inhalat ion ONCE DAILY 1 inhalation ONCE DAILY (route: inhalation ) Med Classific ation: Respirato ry Therapy Agents mirtazapine 45 mg tablet 12-12 00:00: 00 04-01 23:59 :00 No [id number] 1 tablet DAILY 1 tablet DAILY (route: oral) Med Classific ation: Central Nervous System Agents docusate sodium 100 mg capsule 16 00:00: 00 04-01 23:59 :00 No [id number] 1 capsule 2 TIMES DAILY 1 capsule 2 TIMES DAILY (route: oral) Med Classific ation: Gastroint estinal Therapy Agents Eliquis 5 mg tablet 10-26 00:00: 00 04-01 23:59 :00 No [id number] 1 tablet 2 TIMES DAILY 1 tablet 2 TIMES DAILY (route: oral) Med Classific ation: Hematolog ical Agents ferrous sulfate 325 mg (65 mg iron) tablet 10-26 00:00: 00 04-01 23:59 :00 No [id number] 1 tablet DAILY 1 tablet DAILY (route: oral) Med Classific ation: Electroly te Balance-N utritiona l Products finasteride 5 mg tablet 10-26 00:00: 00 04-01 23:59 :00 No [id number] 1 tablet DAILY 1 tablet DAILY (route: oral) Med Classific ation: Genitouri nary Therapy furosemide 40 mg tablet 10-26 00:00: 00 04-01 23:59 :00 No [id number] 1 tablet 2 TIMES DAILY 1 tablet 2 TIMES DAILY (route: oral) Med Classific ation: Cardiovas cular Therapy Agents magnesium 400 mg (as magnesium oxide) tablet 10-26 00:00: 00 04-01 23:59 :00 No [id number] 1 tablet DAILY 1 tablet DAILY (route: oral) Med Classific ation: Electroly te Balance-N utritiona l Products prednisolon e acetate 1 % eye drops,suspe nsion 10-26 00:00: 00 04-01 23:59 :00 No [id number] 1 drops 3 TIMES DAILY 1 drops 3 TIMES DAILY (route: ophthalmic (eye)) Med Classific ation: Ophthalmi c Agents ropinirole 0.25 mg tablet 09-28 00:00: 00 04-01 23:59 :00 No [id number] Per instruc tions DIRECTED Per instructio ns DIRECTED (route: oral) Med Classific ation: Central Nervous System Agents venlafaxine ER 225 mg tablet,exte nded release 24 hr 10-26 00:00: 00 04-01 23:59 :00 No [id number] 1 tablet DAILY 1 tablet DAILY (route: oral) Med Classific ation: Central Nervous System Agents Vitamin D3 125 mcg (5,000 unit) tablet 09-28 00:00: 00 04-01 23:59 :00 No [id number] 1 tablet DAILY 1 tablet DAILY (route: oral) Med Classific ation: Electroly te Balance-N utritiona l Products clonazepam 0.5 mg tablet 2023-04 0-11 00:00: 00 04-01 23:59 :00 No [id number] Per instruc tions BEDTIME Per instructio ns BEDTIME (route: oral) Med Classific ation: Central Nervous System Agents acetaminoph en 325 mg tablet 04-30 00:00: 00 06-27 23:59 :00 No [id number] 2 tablet EVERY 4 HOURS 2 tablet EVERY 4 HOURS (route: oral) Med Classific ation: Analgesic , Anti-infl ammatory or Antipyret ic albuterol sulfate HFA 90 mcg/actuati on aerosol inhaler 04-30 00:00: 00 06-27 23:59 :00 No [id number] 2 puff EVERY 6 HOURS 2 puff EVERY 6 HOURS (route: inhalation ) Med Classific ation: Respirato ry Therapy Agents amantadine HCl 100 mg tablet 04-30 00:00: 00 06-27 23:59 :00 No [id number] 1 tablet DAILY 1 tablet DAILY (route: oral) Med Classific ation: Central Nervous System Agents amoxicillin 500 mg capsule 04-30 00:00: 00 06-27 23:59 :00 No [id number] 4 capsule DIRECTED 4 capsule DIRECTED (route: oral) Med Classific ation: Anti-Infe ctive Agents Breo Ellipta 100 mcg-25 mcg/dose powder for inhalation 04-30 00:00: 00 06-27 23:59 :00 No [id number] 1 inhalat ion DAILY 1 inhalation DAILY (route: inhalation ) Med Classific ation: Respirato ry Therapy Agents clonazepam 0.5 mg tablet 04-30 00:00: 00 06-27 23:59 :00 No [id number] 1 tablet BEDTIME 1 tablet BEDTIME (route: oral) Med Classific ation: Central Nervous System Agents docusate sodium 100 mg capsule 04-30 00:00: 00 06-27 23:59 :00 No [id number] 1 capsule 2 TIMES DAILY 1 capsule 2 TIMES DAILY (route: oral) Med Classific ation: Gastroint estinal Therapy Agents Eliquis 5 mg tablet 04-30 00:00: 00 06-27 23:59 :00 No [id number] 1 tablet 2 TIMES DAILY 1 tablet 2 TIMES DAILY (route: oral) Med Classific ation: Hematolog ical Agents finasteride 5 mg tablet 04-30 00:00: 00 06-27 23:59 :00 No [id number] 1 tablet DAILY 1 tablet DAILY (route: oral) Med Classific ation: Genitouri nary Therapy gabapentin 100 mg capsule 04-30 00:00: 00 06-27 23:59 :00 No [id number] 1 capsule DAILY 1 capsule DAILY (route: oral) Med Classific ation: Central Nervous System Agents gabapentin 300 mg capsule - 00:00: 00 06-27 23:59 :00 No [id number] 1 capsule BEDTIME 1 capsule BEDTIME (route: oral) Med Classific ation: Central Nervous System Agents mirtazapine 45 mg tablet - 00:00: 00 06-27 23:59 :00 No [id number] 1 tablet BEDTIME 1 tablet BEDTIME (route: oral) Med Classific ation: Central Nervous System Agents pantoprazol e 40 mg tablet,baltazar yed release - 00:00: 00 06-27 23:59 :00 No [id number] 1 tablet DAILY 1 tablet DAILY (route: oral) Med Classific ation: Gastroint estinal Therapy Agents ropinirole 0.25 mg tablet 04-30 00:00: 00 06-27 23:59 :00 No [id number] 1-4 tablet DIRECTED 1-4 tablet DIRECTED (route: oral) Med Classific ation: Central Nervous System Agents Rytary 36.25 mg-145 mg capsule,ext ended release 04-30 00:00: 00 06-27 23:59 :00 No [id number] 2 capsule 4 TIMES DAILY 2 capsule 4 TIMES DAILY (route: oral) Med Classific ation: Central Nervous System Agents venlafaxine ER 225 mg tablet,exte nded release 24 hr - 00:00: 00 06-27 23:59 :00 No [id number] 1 tablet BEDTIME 1 tablet BEDTIME (route: oral) Med Classific ation: Central Nervous System Agents amantadine HCl 100 mg capsule 3-04 00:00: 00 Yes [id number] 1 capsule DAILY 1 capsule DAILY (route: oral) Med Classific ation: Central Nervous System Agents clonazepam 0.5 mg tablet 3-04 00:00: 00 Yes [id number] 1 tablet BEDTIME 1 tablet BEDTIME (route: oral) Med Classific ation: Central Nervous System Agents Eliquis 5 mg tablet 3-04 00:00: 00 Yes [id number] 1 tablet 2 TIMES DAILY 1 tablet 2 TIMES DAILY (route: oral) Med Classific ation: Hematolog ical Agents finasteride 5 mg tablet 06-29 00:00: 00 Yes [id number] 1 tablet DAILY 1 tablet DAILY (route: oral) Med Classific ation: Genitouri nary Therapy gabapentin 100 mg capsule 06-29 00:00: 00 Yes [id number] 1 capsule DAILY 1 capsule DAILY (route: oral) Med Classific ation: Central Nervous System Agents gabapentin 300 mg capsule 06-29 00:00: 00 Yes [id number] 1 capsule BEDTIME 1 capsule BEDTIME (route: oral) Med Classific ation: Central Nervous System Agents mirtazapine 45 mg tablet 06-29 00:00: 00 Yes [id number] 1 tablet DAILY 1 tablet DAILY (route: oral) Med Classific ation: Central Nervous System Agents pantoprazol e 40 mg tablet,baltazar yed release 06-29 00:00: 00 10-21 23:59 :00 No [id number] 1 tablet DAILY 1 tablet DAILY (route: oral) Med Classific ation: Gastroint estinal Therapy Agents ropinirole 0.25 mg tablet 06-29 00:00: 00 Yes [id number] 2 tablet DAILY 2 tablet DAILY (route: oral) Med Classific ation: Central Nervous System Agents Rytary 36.25 mg-145 mg capsule,ext ended release 06-29 00:00: 00 Yes [id number] 3 capsule 4 TIMES DAILY 3 capsule 4 TIMES DAILY (route: oral) Med Classific ation: Central Nervous System Agents venlafaxine ER 225 mg tablet,exte nded release 24 hr 06-29 00:00: 00 Yes [id number] 1 tablet DAILY 1 tablet DAILY (route: oral) Med Classific ation: Central Nervous System Agents albuterol sulfate HFA 90 mcg/actuati on aerosol inhaler 06-29 00:00: 00 Yes [id number] 2 puff EVERY 6 HOURS 2 puff EVERY 6 HOURS (route: inhalation ) Med Classific ation: Respirato ry Therapy Agents Breo Ellipta 100 mcg-25 mcg/dose powder for inhalation 3-04 00:00: 00 Yes [id number] 1 inhalat ion DAILY 1 inhalation DAILY (route: inhalation ) Med Classific ation: Respirato ry Therapy Agents pantoprazol e 40 mg tablet,baltazar yed release 3- 00:00: 00 10-21 23:59 :00 No [id number] 1 tablet 2 TIMES DAILY 1 tablet 2 TIMES DAILY (route: oral) Med Classific ation: Gastroint estinal Therapy Agents fluconazole 200 mg tablet - 00:00: 00 Yes [id number] 200 mg DAILY 200 mg DAILY (route: oral) Alternate Route: SUBLINGUA L. Med Classific ation: Anti-Infe ctive Agents Carafate 100 mg/mL oral suspension 10-26 00:00: 00 Yes [id number] 10 mL 4 TIMES DAILY 10 mL 4 TIMES DAILY (route: oral) Med Classific ation: Gastroint estinal Therapy Agents Voquezna 20 mg tablet 10-26 00:00: 00 12-03 00:58 :03.3 47 No [id number] 1 tablet 2 TIMES DAILY 1 tablet 2 TIMES DAILY (route: oral) Med Classific ation: Gastroint estinal Therapy Agents Voquezna 20 mg tablet 10-21 00:00: 00 Yes [id number] 1 tablet 2 TIMES DAILY 1 tablet [...] MAINTAIN SITUATIONAL AWARENESS AND WILL NOTIFY CLINICAL YACHT MASTER AND PHYSICIAN/PROVIDER WITH ANY CHANGE IN CONDITION. [code = SKILLED NURSE TO PERFORM ENVIRONMENTAL SAFETY RISK ASSESSMENT AND FALL RISK ASSESSMENT AND PROVIDE INSTRUCTION TO IMPLEMENT ENVIRONMENTAL SAFETY AND FALL PREVENTION STRATEGIES THROUGHOUT THE CERTIFICATION PERIOD. SKILLED NURSE WILL MAINTAIN SITUATIONAL AWARENESS AND WILL NOTIFY CLINICAL YACHT MASTER AND PHYSICIAN/PROVIDER WITH ANY CHANGE IN CONDITION.] [...] 00:00:00 Outpatient RECERTIFIC ATION DEMETRI SLAUGHTER [facility] [id number] 6.25
--- OUTSIDE RECORDS SUMMARY | 2025-04-23 19:00 | XMS_ITS | Clinical Summary ---
Author Organization Unknown Care Team Providers Care Shear Grinder Operator Name Role Phone DARIAN DANGELO, ANYA Unavailable Unavaila aleisha CHRISTENSEN RN SCHOOL/BLEACHER LARD, RENAN Unavailable Unava susie SLAUGHTER RN, DEMETRI Unavailable Unavailable Payers Payer Name Policy Type Policy Number Effective Date Expira tion Date MEDICARE - [facility] [place] - PD [id number] Problems Condition Name Condition Details Condition Category [...] 01-11 00:00: 00 01-18 23:59 :00 No [id number] 1 tablet 2 TIMES DAILY 1 tablet 2 TIMES DAILY (route: oral) Med Classific ation: Anti-Infe ctive Agents lactulose 10 gram/15 mL oral solution 01-11 00:00: 00 04-01 23:59 :00 No [id number] 30 g DAILY 30 g DAILY (route: oral) Med Classific ation: Gastroint estinal Therapy Agents Rytary 36.25 mg-145 mg capsule,ext ended release 13 00:00: 00 04-01 23:59 :00 No [id number] 4 capsule 4 TIMES DAILY 4 capsule 4 TIMES DAILY (route: oral) Med Classific ation: Central Nervous System Agents Breo Ellipta 100 mcg-25 mcg/dose powder for inhalation - 00:00: 00 04-01 23:59 :00 No [id number] 1 inhalat ion ONCE DAILY 1 inhalation ONCE DAILY (route: inhalation ) Med Classific ation: Respirato ry Therapy Agents mirtazapine 45 mg tablet 12-12 00:00: 00 04-01 23:59 :00 No [id number] 1 tablet DAILY 1 tablet DAILY (route: oral) Med Classific ation: Central Nervous System Agents docusate sodium 100 mg capsule 16 00:00: 00 04-01 23:59 :00 No [id number] 1 capsule 2 TIMES DAILY 1 capsule 2 TIMES DAILY (route: oral) Med Classific ation: Gastroint estinal Therapy Agents Eliquis 5 mg tablet 10-26 00:00: 00 04-01 23:59 :00 No [id number] 1 tablet 2 TIMES DAILY 1 tablet 2 TIMES DAILY (route: oral) Med Classific ation: Hematolog ical Agents ferrous sulfate 325 mg (65 mg iron) tablet 10-26 00:00: 00 04-01 23:59 :00 No [id number] 1 tablet DAILY 1 tablet DAILY (route: oral) Med Classific ation: Electroly te Balance-N utritiona l Products finasteride 5 mg tablet 10-26 00:00: 00 04-01 23:59 :00 No [id number] 1 tablet DAILY 1 tablet DAILY (route: oral) Med Classific ation: Genitouri nary Therapy furosemide 40 mg tablet 10-26 00:00: 00 04-01 23:59 :00 No [id number] 1 tablet 2 TIMES DAILY 1 tablet 2 TIMES DAILY (route: oral) Med Classific ation: Cardiovas cular Therapy Agents magnesium 400 mg (as magnesium oxide) tablet 10-26 00:00: 00 04-01 23:59 :00 No [id number] 1 tablet DAILY 1 tablet DAILY (route: oral) Med Classific ation: Electroly te Balance-N utritiona l Products prednisolon e acetate 1 % eye drops,suspe nsion 10-26 00:00: 00 04-01 23:59 :00 No [id number] 1 drops 3 TIMES DAILY 1 drops 3 TIMES DAILY (route: ophthalmic (eye)) Med Classific ation: Ophthalmi c Agents ropinirole 0.25 mg tablet 09-28 00:00: 00 04-01 23:59 :00 No [id number] Per instruc tions DIRECTED Per instructio ns DIRECTED (route: oral) Med Classific ation: Central Nervous System Agents venlafaxine ER 225 mg tablet,exte nded release 24 hr 10-26 00:00: 00 04-01 23:59 :00 No [id number] 1 tablet DAILY 1 tablet DAILY (route: oral) Med Classific ation: Central Nervous System Agents Vitamin D3 125 mcg (5,000 unit) tablet 09-28 00:00: 00 04-01 23:59 :00 No [id number] 1 tablet DAILY 1 tablet DAILY (route: oral) Med Classific ation: Electroly te Balance-N utritiona l Products clonazepam 0.5 mg tablet 2023-04 0-11 00:00: 00 04-01 23:59 :00 No [id number] Per instruc tions BEDTIME Per instructio ns BEDTIME (route: oral) Med Classific ation: Central Nervous System Agents acetaminoph en 325 mg tablet 04-30 00:00: 00 06-27 23:59 :00 No [id number] 2 tablet EVERY 4 HOURS 2 tablet EVERY 4 HOURS (route: oral) Med Classific ation: Analgesic , Anti-infl ammatory or Antipyret ic albuterol sulfate HFA 90 mcg/actuati on aerosol inhaler 04-30 00:00: 00 06-27 23:59 :00 No [id number] 2 puff EVERY 6 HOURS 2 puff EVERY 6 HOURS (route: inhalation ) Med Classific ation: Respirato ry Therapy Agents amantadine HCl 100 mg tablet 04-30 00:00: 00 06-27 23:59 :00 No [id number] 1 tablet DAILY 1 tablet DAILY (route: oral) Med Classific ation: Central Nervous System Agents amoxicillin 500 mg capsule 04-30 00:00: 00 06-27 23:59 :00 No [id number] 4 capsule DIRECTED 4 capsule DIRECTED (route: oral) Med Classific ation: Anti-Infe ctive Agents Breo Ellipta 100 mcg-25 mcg/dose powder for inhalation 04-30 00:00: 00 06-27 23:59 :00 No [id number] 1 inhalat ion DAILY 1 inhalation DAILY (route: inhalation ) Med Classific ation: Respirato ry Therapy Agents clonazepam 0.5 mg tablet 04-30 00:00: 00 06-27 23:59 :00 No [id number] 1 tablet BEDTIME 1 tablet BEDTIME (route: oral) Med Classific ation: Central Nervous System Agents docusate sodium 100 mg capsule 04-30 00:00: 00 06-27 23:59 :00 No [id number] 1 capsule 2 TIMES DAILY 1 capsule 2 TIMES DAILY (route: oral) Med Classific ation: Gastroint estinal Therapy Agents Eliquis 5 mg tablet 04-30 00:00: 00 06-27 23:59 :00 No [id number] 1 tablet 2 TIMES DAILY 1 tablet 2 TIMES DAILY (route: oral) Med Classific ation: Hematolog ical Agents finasteride 5 mg tablet 04-30 00:00: 00 06-27 23:59 :00 No [id number] 1 tablet DAILY 1 tablet DAILY (route: oral) Med Classific ation: Genitouri nary Therapy gabapentin 100 mg capsule 04-30 00:00: 00 06-27 23:59 :00 No [id number] 1 capsule DAILY 1 capsule DAILY (route: oral) Med Classific ation: Central Nervous System Agents gabapentin 300 mg capsule - 00:00: 00 06-27 23:59 :00 No [id number] 1 capsule BEDTIME 1 capsule BEDTIME (route: oral) Med Classific ation: Central Nervous System Agents mirtazapine 45 mg tablet - 00:00: 00 06-27 23:59 :00 No [id number] 1 tablet BEDTIME 1 tablet BEDTIME (route: oral) Med Classific ation: Central Nervous System Agents pantoprazol e 40 mg tablet,baltazar yed release - 00:00: 00 06-27 23:59 :00 No [id number] 1 tablet DAILY 1 tablet DAILY (route: oral) Med Classific ation: Gastroint estinal Therapy Agents ropinirole 0.25 mg tablet 04-30 00:00: 00 06-27 23:59 :00 No [id number] 1-4 tablet DIRECTED 1-4 tablet DIRECTED (route: oral) Med Classific ation: Central Nervous System Agents Rytary 36.25 mg-145 mg capsule,ext ended release 04-30 00:00: 00 06-27 23:59 :00 No [id number] 2 capsule 4 TIMES DAILY 2 capsule 4 TIMES DAILY (route: oral) Med Classific ation: Central Nervous System Agents venlafaxine ER 225 mg tablet,exte nded release 24 hr - 00:00: 00 06-27 23:59 :00 No [id number] 1 tablet BEDTIME 1 tablet BEDTIME (route: oral) Med Classific ation: Central Nervous System Agents amantadine HCl 100 mg capsule 3-04 00:00: 00 Yes [id number] 1 capsule DAILY 1 capsule DAILY (route: oral) Med Classific ation: Central Nervous System Agents clonazepam 0.5 mg tablet 3-04 00:00: 00 Yes [id number] 1 tablet BEDTIME 1 tablet BEDTIME (route: oral) Med Classific ation: Central Nervous System Agents Eliquis 5 mg tablet 3-04 00:00: 00 Yes [id number] 1 tablet 2 TIMES DAILY 1 tablet 2 TIMES DAILY (route: oral) Med Classific ation: Hematolog ical Agents finasteride 5 mg tablet 06-29 00:00: 00 Yes [id number] 1 tablet DAILY 1 tablet DAILY (route: oral) Med Classific ation: Genitouri nary Therapy gabapentin 100 mg capsule 06-29 00:00: 00 Yes [id number] 1 capsule DAILY 1 capsule DAILY (route: oral) Med Classific ation: Central Nervous System Agents gabapentin 300 mg capsule 06-29 00:00: 00 Yes [id number] 1 capsule BEDTIME 1 capsule BEDTIME (route: oral) Med Classific ation: Central Nervous System Agents mirtazapine 45 mg tablet 06-29 00:00: 00 Yes [id number] 1 tablet DAILY 1 tablet DAILY (route: oral) Med Classific ation: Central Nervous System Agents pantoprazol e 40 mg tablet,baltazar yed release 06-29 00:00: 00 10-21 23:59 :00 No [id number] 1 tablet DAILY 1 tablet DAILY (route: oral) Med Classific ation: Gastroint estinal Therapy Agents ropinirole 0.25 mg tablet 06-29 00:00: 00 Yes [id number] 2 tablet DAILY 2 tablet DAILY (route: oral) Med Classific ation: Central Nervous System Agents Rytary 36.25 mg-145 mg capsule,ext ended release 06-29 00:00: 00 Yes [id number] 3 capsule 4 TIMES DAILY 3 capsule 4 TIMES DAILY (route: oral) Med Classific ation: Central Nervous System Agents venlafaxine ER 225 mg tablet,exte nded release 24 hr 06-29 00:00: 00 Yes [id number] 1 tablet DAILY 1 tablet DAILY (route: oral) Med Classific ation: Central Nervous System Agents albuterol sulfate HFA 90 mcg/actuati on aerosol inhaler 06-29 00:00: 00 Yes [id number] 2 puff EVERY 6 HOURS 2 puff EVERY 6 HOURS (route: inhalation ) Med Classific ation: Respirato ry Therapy Agents Breo Ellipta 100 mcg-25 mcg/dose powder for inhalation 3-04 00:00: 00 Yes [id number] 1 inhalat ion DAILY 1 inhalation DAILY (route: inhalation ) Med Classific ation: Respirato ry Therapy Agents pantoprazol e 40 mg tablet,baltazar yed release 3- 00:00: 00 10-21 23:59 :00 No [id number] 1 tablet 2 TIMES DAILY 1 tablet 2 TIMES DAILY (route: oral) Med Classific ation: Gastroint estinal Therapy Agents fluconazole 200 mg tablet - 00:00: 00 Yes [id number] 200 mg DAILY 200 mg DAILY (route: oral) Alternate Route: SUBLINGUA L. Med Classific ation: Anti-Infe ctive Agents Carafate 100 mg/mL oral suspension 10-26 00:00: 00 Yes [id number] 10 mL 4 TIMES DAILY 10 mL 4 TIMES DAILY (route: oral) Med Classific ation: Gastroint estinal Therapy Agents Voquezna 20 mg tablet 10-26 00:00: 00 12-03 00:58 :03.3 47 No [id number] 1 tablet 2 TIMES DAILY 1 tablet 2 TIMES DAILY (route: oral) Med Classific ation: Gastroint estinal Therapy Agents Voquezna 20 mg tablet 10-21 00:00: 00 Yes [id number] 1 tablet 2 TIMES DAILY 1 tablet [...] MAINTAIN SITUATIONAL AWARENESS AND WILL NOTIFY CLINICAL HAND COLLATOR AND PHYSICIAN/PROVIDER WITH ANY CHANGE IN CONDITION. [code = SKILLED NURSE TO PERFORM ENVIRONMENTAL SAFETY RISK ASSESSMENT AND FALL RISK ASSESSMENT AND PROVIDE INSTRUCTION TO IMPLEMENT ENVIRONMENTAL SAFETY AND FALL PREVENTION STRATEGIES THROUGHOUT THE CERTIFICATION PERIOD. SKILLED NURSE WILL MAINTAIN SITUATIONAL AWARENESS AND WILL NOTIFY CLINICAL HAND COLLATOR AND PHYSICIAN/PROVIDER WITH ANY CHANGE IN CONDITION.] [...] LASIX PATIENT LIVING SITUATION/CAREGIVER STATUS: LIVES IN [facility] WITH SPOUSE SUMMARIZE SKILLED NEED: DISEASE MANAGEMENT [...] RECERTIFIC ATION DEMETRI SLAUGHTER [facility] [id number] 6.25
--- OUTSIDE RECORDS SUMMARY | 2025-04-23 19:00 | XMS_ITS | Clinical Summary ---
Author Organization Unknown Care Team Providers Care Blasting Entryman Name Role Phone DARIAN DANGELO, ANYA Unavailable Unavaila aleisha CHRISTENSEN AUTOMATED WEAVER/COMMUNICATIONS OFFICER, RENAN Unavailable Unava susie SLAUGHTER RN, DEMETRI Unavailable Unavailable Payers Payer Name Policy Type Policy Number Effective Date Expira tion Date MEDICARE - [facility] - PD [id number] Problems Condition Name Condition Details Condition Category [...] 01-11 00:00: 00 01-18 23:59 :00 No [id number] 1 tablet 2 TIMES DAILY 1 tablet 2 TIMES DAILY (route: oral) Med Classific ation: Anti-Infe ctive Agents lactulose 10 gram/15 mL oral solution 01-11 00:00: 00 04-01 23:59 :00 No [id number] 30 g DAILY 30 g DAILY (route: oral) Med Classific ation: Gastroint estinal Therapy Agents Rytary 36.25 mg-145 mg capsule,ext ended release 13 00:00: 00 04-01 23:59 :00 No [id number] 4 capsule 4 TIMES DAILY 4 capsule 4 TIMES DAILY (route: oral) Med Classific ation: Central Nervous System Agents Breo Ellipta 100 mcg-25 mcg/dose powder for inhalation - 00:00: 00 04-01 23:59 :00 No [id number] 1 inhalat ion ONCE DAILY 1 inhalation ONCE DAILY (route: inhalation ) Med Classific ation: Respirato ry Therapy Agents mirtazapine 45 mg tablet 12-12 00:00: 00 04-01 23:59 :00 No [id number] 1 tablet DAILY 1 tablet DAILY (route: oral) Med Classific ation: Central Nervous System Agents docusate sodium 100 mg capsule 16 00:00: 00 04-01 23:59 :00 No [id number] 1 capsule 2 TIMES DAILY 1 capsule 2 TIMES DAILY (route: oral) Med Classific ation: Gastroint estinal Therapy Agents Eliquis 5 mg tablet 10-26 00:00: 00 04-01 23:59 :00 No [id number] 1 tablet 2 TIMES DAILY 1 tablet 2 TIMES DAILY (route: oral) Med Classific ation: Hematolog ical Agents ferrous sulfate 325 mg (65 mg iron) tablet 10-26 00:00: 00 04-01 23:59 :00 No [id number] 1 tablet DAILY 1 tablet DAILY (route: oral) Med Classific ation: Electroly te Balance-N utritiona l Products finasteride 5 mg tablet 10-26 00:00: 00 04-01 23:59 :00 No [id number] 1 tablet DAILY 1 tablet DAILY (route: oral) Med Classific ation: Genitouri nary Therapy furosemide 40 mg tablet 10-26 00:00: 00 04-01 23:59 :00 No [id number] 1 tablet 2 TIMES DAILY 1 tablet 2 TIMES DAILY (route: oral) Med Classific ation: Cardiovas cular Therapy Agents magnesium 400 mg (as magnesium oxide) tablet 10-26 00:00: 00 04-01 23:59 :00 No [id number] 1 tablet DAILY 1 tablet DAILY (route: oral) Med Classific ation: Electroly te Balance-N utritiona l Products prednisolon e acetate 1 % eye drops,suspe nsion 10-26 00:00: 00 04-01 23:59 :00 No [id number] 1 drops 3 TIMES DAILY 1 drops 3 TIMES DAILY (route: ophthalmic (eye)) Med Classific ation: Ophthalmi c Agents ropinirole 0.25 mg tablet 09-28 00:00: 00 04-01 23:59 :00 No [id number] Per instruc tions DIRECTED Per instructio ns DIRECTED (route: oral) Med Classific ation: Central Nervous System Agents venlafaxine ER 225 mg tablet,exte nded release 24 hr 10-26 00:00: 00 04-01 23:59 :00 No [id number] 1 tablet DAILY 1 tablet DAILY (route: oral) Med Classific ation: Central Nervous System Agents Vitamin D3 125 mcg (5,000 unit) tablet 09-28 00:00: 00 04-01 23:59 :00 No [id number] 1 tablet DAILY 1 tablet DAILY (route: oral) Med Classific ation: Electroly te Balance-N utritiona l Products clonazepam 0.5 mg tablet 2023-04 0-11 00:00: 00 04-01 23:59 :00 No [id number] Per instruc tions BEDTIME Per instructio ns BEDTIME (route: oral) Med Classific ation: Central Nervous System Agents acetaminoph en 325 mg tablet 04-30 00:00: 00 06-27 23:59 :00 No [id number] 2 tablet EVERY 4 HOURS 2 tablet EVERY 4 HOURS (route: oral) Med Classific ation: Analgesic , Anti-infl ammatory or Antipyret ic albuterol sulfate HFA 90 mcg/actuati on aerosol inhaler 04-30 00:00: 00 06-27 23:59 :00 No [id number] 2 puff EVERY 6 HOURS 2 puff EVERY 6 HOURS (route: inhalation ) Med Classific ation: Respirato ry Therapy Agents amantadine HCl 100 mg tablet 04-30 00:00: 00 06-27 23:59 :00 No [id number] 1 tablet DAILY 1 tablet DAILY (route: oral) Med Classific ation: Central Nervous System Agents amoxicillin 500 mg capsule 04-30 00:00: 00 06-27 23:59 :00 No [id number] 4 capsule DIRECTED 4 capsule DIRECTED (route: oral) Med Classific ation: Anti-Infe ctive Agents Breo Ellipta 100 mcg-25 mcg/dose powder for inhalation 04-30 00:00: 00 06-27 23:59 :00 No [id number] 1 inhalat ion DAILY 1 inhalation DAILY (route: inhalation ) Med Classific ation: Respirato ry Therapy Agents clonazepam 0.5 mg tablet 04-30 00:00: 00 06-27 23:59 :00 No [id number] 1 tablet BEDTIME 1 tablet BEDTIME (route: oral) Med Classific ation: Central Nervous System Agents docusate sodium 100 mg capsule 04-30 00:00: 00 06-27 23:59 :00 No [id number] 1 capsule 2 TIMES DAILY 1 capsule 2 TIMES DAILY (route: oral) Med Classific ation: Gastroint estinal Therapy Agents Eliquis 5 mg tablet 04-30 00:00: 00 06-27 23:59 :00 No [id number] 1 tablet 2 TIMES DAILY 1 tablet 2 TIMES DAILY (route: oral) Med Classific ation: Hematolog ical Agents finasteride 5 mg tablet 04-30 00:00: 00 06-27 23:59 :00 No [id number] 1 tablet DAILY 1 tablet DAILY (route: oral) Med Classific ation: Genitouri nary Therapy gabapentin 100 mg capsule 04-30 00:00: 00 06-27 23:59 :00 No [id number] 1 capsule DAILY 1 capsule DAILY (route: oral) Med Classific ation: Central Nervous System Agents gabapentin 300 mg capsule - 00:00: 00 06-27 23:59 :00 No [id number] 1 capsule BEDTIME 1 capsule BEDTIME (route: oral) Med Classific ation: Central Nervous System Agents mirtazapine 45 mg tablet - 00:00: 00 06-27 23:59 :00 No [id number] 1 tablet BEDTIME 1 tablet BEDTIME (route: oral) Med Classific ation: Central Nervous System Agents pantoprazol e 40 mg tablet,baltazar yed release - 00:00: 00 06-27 23:59 :00 No [id number] 1 tablet DAILY 1 tablet DAILY (route: oral) Med Classific ation: Gastroint estinal Therapy Agents ropinirole 0.25 mg tablet 04-30 00:00: 00 06-27 23:59 :00 No [id number] 1-4 tablet DIRECTED 1-4 tablet DIRECTED (route: oral) Med Classific ation: Central Nervous System Agents Rytary 36.25 mg-145 mg capsule,ext ended release 04-30 00:00: 00 06-27 23:59 :00 No [id number] 2 capsule 4 TIMES DAILY 2 capsule 4 TIMES DAILY (route: oral) Med Classific ation: Central Nervous System Agents venlafaxine ER 225 mg tablet,exte nded release 24 hr - 00:00: 00 06-27 23:59 :00 No [id number] 1 tablet BEDTIME 1 tablet BEDTIME (route: oral) Med Classific ation: Central Nervous System Agents amantadine HCl 100 mg capsule 3-04 00:00: 00 Yes [id number] 1 capsule DAILY 1 capsule DAILY (route: oral) Med Classific ation: Central Nervous System Agents clonazepam 0.5 mg tablet 3-04 00:00: 00 Yes [id number] 1 tablet BEDTIME 1 tablet BEDTIME (route: oral) Med Classific ation: Central Nervous System Agents Eliquis 5 mg tablet 3-04 00:00: 00 Yes [id number] 1 tablet 2 TIMES DAILY 1 tablet 2 TIMES DAILY (route: oral) Med Classific ation: Hematolog ical Agents finasteride 5 mg tablet 06-29 00:00: 00 Yes [id number] 1 tablet DAILY 1 tablet DAILY (route: oral) Med Classific ation: Genitouri nary Therapy gabapentin 100 mg capsule 06-29 00:00: 00 Yes [id number] 1 capsule DAILY 1 capsule DAILY (route: oral) Med Classific ation: Central Nervous System Agents gabapentin 300 mg capsule 06-29 00:00: 00 Yes [id number] 1 capsule BEDTIME 1 capsule BEDTIME (route: oral) Med Classific ation: Central Nervous System Agents mirtazapine 45 mg tablet 06-29 00:00: 00 Yes [id number] 1 tablet DAILY 1 tablet DAILY (route: oral) Med Classific ation: Central Nervous System Agents pantoprazol e 40 mg tablet,baltazar yed release 06-29 00:00: 00 10-21 23:59 :00 No [id number] 1 tablet DAILY 1 tablet DAILY (route: oral) Med Classific ation: Gastroint estinal Therapy Agents ropinirole 0.25 mg tablet 06-29 00:00: 00 Yes [id number] 2 tablet DAILY 2 tablet DAILY (route: oral) Med Classific ation: Central Nervous System Agents Rytary 36.25 mg-145 mg capsule,ext ended release 06-29 00:00: 00 Yes [id number] 3 capsule 4 TIMES DAILY 3 capsule 4 TIMES DAILY (route: oral) Med Classific ation: Central Nervous System Agents venlafaxine ER 225 mg tablet,exte nded release 24 hr 06-29 00:00: 00 Yes [id number] 1 tablet DAILY 1 tablet DAILY (route: oral) Med Classific ation: Central Nervous System Agents albuterol sulfate HFA 90 mcg/actuati on aerosol inhaler 06-29 00:00: 00 Yes [id number] 2 puff EVERY 6 HOURS 2 puff EVERY 6 HOURS (route: inhalation ) Med Classific ation: Respirato ry Therapy Agents Breo Ellipta 100 mcg-25 mcg/dose powder for inhalation 3-04 00:00: 00 Yes [id number] 1 inhalat ion DAILY 1 inhalation DAILY (route: inhalation ) Med Classific ation: Respirato ry Therapy Agents pantoprazol e 40 mg tablet,baltazar yed release 3- 00:00: 00 10-21 23:59 :00 No [id number] 1 tablet 2 TIMES DAILY 1 tablet 2 TIMES DAILY (route: oral) Med Classific ation: Gastroint estinal Therapy Agents fluconazole 200 mg tablet - 00:00: 00 Yes [id number] 200 mg DAILY 200 mg DAILY (route: oral) Alternate Route: SUBLINGUA L. Med Classific ation: Anti-Infe ctive Agents Carafate 100 mg/mL oral suspension 10-26 00:00: 00 Yes [id number] 10 mL 4 TIMES DAILY 10 mL 4 TIMES DAILY (route: oral) Med Classific ation: Gastroint estinal Therapy Agents Voquezna 20 mg tablet 10-26 00:00: 00 12-03 00:58 :03.3 47 No [id number] 1 tablet 2 TIMES DAILY 1 tablet 2 TIMES DAILY (route: oral) Med Classific ation: Gastroint estinal Therapy Agents Voquezna 20 mg tablet 10-21 00:00: 00 Yes [id number] 1 tablet 2 TIMES DAILY 1 tablet [...] MAINTAIN SITUATIONAL AWARENESS AND WILL NOTIFY CLINICAL TIRE BUILDER AND PHYSICIAN/PROVIDER WITH ANY CHANGE IN CONDITION. [code = SKILLED NURSE TO PERFORM ENVIRONMENTAL SAFETY RISK ASSESSMENT AND FALL RISK ASSESSMENT AND PROVIDE INSTRUCTION TO IMPLEMENT ENVIRONMENTAL SAFETY AND FALL PREVENTION STRATEGIES THROUGHOUT THE CERTIFICATION PERIOD. SKILLED NURSE WILL MAINTAIN SITUATIONAL AWARENESS AND WILL NOTIFY CLINICAL TIRE BUILDER AND PHYSICIAN/PROVIDER WITH ANY CHANGE IN CONDITION.] [...] LASIX PATIENT LIVING SITUATION/CAREGIVER STATUS: [facility] SUM[facility] SKILLED NEED: DISEASE [...] RECERTIFIC ATION DEMETRI SLAUGHTER [facility] [id number] 6.25
--- OUTSIDE RECORDS SUMMARY | 2025-04-23 19:00 | XMS_ITS | Clinical Summary ---
Author Organization Unknown Care Team Providers Care Gizzard Puller Name Role Phone DARIAN DANGELO, ANYA Unavailable Unavaila aleisha CHRISTENSEN LATENT FINGERPRINT EXAMINER/LUMBER MOVER, RENAN Unavailable Unava susie SLAUGHTER RN, DEMETRI Unavailable Unavailable Payers Payer Name Policy Type Policy Number Effective Date Expira tion Date MEDICARE - [facility] - PD [id number] Problems Condition Name Condition Details Condition Category [...] 01-11 00:00: 00 01-18 23:59 :00 No [id number] 1 tablet 2 TIMES DAILY 1 tablet 2 TIMES DAILY (route: oral) Med Classific ation: Anti-Infe ctive Agents lactulose 10 gram/15 mL oral solution 01-11 00:00: 00 04-01 23:59 :00 No [id number] 30 g DAILY 30 g DAILY (route: oral) Med Classific ation: Gastroint estinal Therapy Agents Rytary 36.25 mg-145 mg capsule,ext ended release 13 00:00: 00 04-01 23:59 :00 No [id number] 4 capsule 4 TIMES DAILY 4 capsule 4 TIMES DAILY (route: oral) Med Classific ation: Central Nervous System Agents Breo Ellipta 100 mcg-25 mcg/dose powder for inhalation - 00:00: 00 04-01 23:59 :00 No [id number] 1 inhalat ion ONCE DAILY 1 inhalation ONCE DAILY (route: inhalation ) Med Classific ation: Respirato ry Therapy Agents mirtazapine 45 mg tablet 12-12 00:00: 00 04-01 23:59 :00 No [id number] 1 tablet DAILY 1 tablet DAILY (route: oral) Med Classific ation: Central Nervous System Agents docusate sodium 100 mg capsule 16 00:00: 00 04-01 23:59 :00 No [id number] 1 capsule 2 TIMES DAILY 1 capsule 2 TIMES DAILY (route: oral) Med Classific ation: Gastroint estinal Therapy Agents Eliquis 5 mg tablet 10-26 00:00: 00 04-01 23:59 :00 No [id number] 1 tablet 2 TIMES DAILY 1 tablet 2 TIMES DAILY (route: oral) Med Classific ation: Hematolog ical Agents ferrous sulfate 325 mg (65 mg iron) tablet 10-26 00:00: 00 04-01 23:59 :00 No [id number] 1 tablet DAILY 1 tablet DAILY (route: oral) Med Classific ation: Electroly te Balance-N utritiona l Products finasteride 5 mg tablet 10-26 00:00: 00 04-01 23:59 :00 No [id number] 1 tablet DAILY 1 tablet DAILY (route: oral) Med Classific ation: Genitouri nary Therapy furosemide 40 mg tablet 10-26 00:00: 00 04-01 23:59 :00 No [id number] 1 tablet 2 TIMES DAILY 1 tablet 2 TIMES DAILY (route: oral) Med Classific ation: Cardiovas cular Therapy Agents magnesium 400 mg (as magnesium oxide) tablet 10-26 00:00: 00 04-01 23:59 :00 No [id number] 1 tablet DAILY 1 tablet DAILY (route: oral) Med Classific ation: Electroly te Balance-N utritiona l Products prednisolon e acetate 1 % eye drops,suspe nsion 10-26 00:00: 00 04-01 23:59 :00 No [id number] 1 drops 3 TIMES DAILY 1 drops 3 TIMES DAILY (route: ophthalmic (eye)) Med Classific ation: Ophthalmi c Agents ropinirole 0.25 mg tablet 09-28 00:00: 00 04-01 23:59 :00 No [id number] Per instruc tions DIRECTED Per instructio ns DIRECTED (route: oral) Med Classific ation: Central Nervous System Agents venlafaxine ER 225 mg tablet,exte nded release 24 hr 10-26 00:00: 00 04-01 23:59 :00 No [id number] 1 tablet DAILY 1 tablet DAILY (route: oral) Med Classific ation: Central Nervous System Agents Vitamin D3 125 mcg (5,000 unit) tablet 09-28 00:00: 00 04-01 23:59 :00 No [id number] 1 tablet DAILY 1 tablet DAILY (route: oral) Med Classific ation: Electroly te Balance-N utritiona l Products clonazepam 0.5 mg tablet 2023-04 0-11 00:00: 00 04-01 23:59 :00 No [id number] Per instruc tions BEDTIME Per instructio ns BEDTIME (route: oral) Med Classific ation: Central Nervous System Agents acetaminoph en 325 mg tablet 04-30 00:00: 00 06-27 23:59 :00 No [id number] 2 tablet EVERY 4 HOURS 2 tablet EVERY 4 HOURS (route: oral) Med Classific ation: Analgesic , Anti-infl ammatory or Antipyret ic albuterol sulfate HFA 90 mcg/actuati on aerosol inhaler 04-30 00:00: 00 06-27 23:59 :00 No [id number] 2 puff EVERY 6 HOURS 2 puff EVERY 6 HOURS (route: inhalation ) Med Classific ation: Respirato ry Therapy Agents amantadine HCl 100 mg tablet 04-30 00:00: 00 06-27 23:59 :00 No [id number] 1 tablet DAILY 1 tablet DAILY (route: oral) Med Classific ation: Central Nervous System Agents amoxicillin 500 mg capsule 04-30 00:00: 00 06-27 23:59 :00 No [id number] 4 capsule DIRECTED 4 capsule DIRECTED (route: oral) Med Classific ation: Anti-Infe ctive Agents Breo Ellipta 100 mcg-25 mcg/dose powder for inhalation 04-30 00:00: 00 06-27 23:59 :00 No [id number] 1 inhalat ion DAILY 1 inhalation DAILY (route: inhalation ) Med Classific ation: Respirato ry Therapy Agents clonazepam 0.5 mg tablet 04-30 00:00: 00 06-27 23:59 :00 No [id number] 1 tablet BEDTIME 1 tablet BEDTIME (route: oral) Med Classific ation: Central Nervous System Agents docusate sodium 100 mg capsule 04-30 00:00: 00 06-27 23:59 :00 No [id number] 1 capsule 2 TIMES DAILY 1 capsule 2 TIMES DAILY (route: oral) Med Classific ation: Gastroint estinal Therapy Agents Eliquis 5 mg tablet 04-30 00:00: 00 06-27 23:59 :00 No [id number] 1 tablet 2 TIMES DAILY 1 tablet 2 TIMES DAILY (route: oral) Med Classific ation: Hematolog ical Agents finasteride 5 mg tablet 04-30 00:00: 00 06-27 23:59 :00 No [id number] 1 tablet DAILY 1 tablet DAILY (route: oral) Med Classific ation: Genitouri nary Therapy gabapentin 100 mg capsule 04-30 00:00: 00 06-27 23:59 :00 No [id number] 1 capsule DAILY 1 capsule DAILY (route: oral) Med Classific ation: Central Nervous System Agents gabapentin 300 mg capsule - 00:00: 00 06-27 23:59 :00 No [id number] 1 capsule BEDTIME 1 capsule BEDTIME (route: oral) Med Classific ation: Central Nervous System Agents mirtazapine 45 mg tablet - 00:00: 00 06-27 23:59 :00 No [id number] 1 tablet BEDTIME 1 tablet BEDTIME (route: oral) Med Classific ation: Central Nervous System Agents pantoprazol e 40 mg tablet,baltazar yed release - 00:00: 00 06-27 23:59 :00 No [id number] 1 tablet DAILY 1 tablet DAILY (route: oral) Med Classific ation: Gastroint estinal Therapy Agents ropinirole 0.25 mg tablet 04-30 00:00: 00 06-27 23:59 :00 No [id number] 1-4 tablet DIRECTED 1-4 tablet DIRECTED (route: oral) Med Classific ation: Central Nervous System Agents Rytary 36.25 mg-145 mg capsule,ext ended release 04-30 00:00: 00 06-27 23:59 :00 No [id number] 2 capsule 4 TIMES DAILY 2 capsule 4 TIMES DAILY (route: oral) Med Classific ation: Central Nervous System Agents venlafaxine ER 225 mg tablet,exte nded release 24 hr - 00:00: 00 06-27 23:59 :00 No [id number] 1 tablet BEDTIME 1 tablet BEDTIME (route: oral) Med Classific ation: Central Nervous System Agents amantadine HCl 100 mg capsule 3-04 00:00: 00 Yes [id number] 1 capsule DAILY 1 capsule DAILY (route: oral) Med Classific ation: Central Nervous System Agents clonazepam 0.5 mg tablet 3-04 00:00: 00 Yes [id number] 1 tablet BEDTIME 1 tablet BEDTIME (route: oral) Med Classific ation: Central Nervous System Agents Eliquis 5 mg tablet 3-04 00:00: 00 Yes [id number] 1 tablet 2 TIMES DAILY 1 tablet 2 TIMES DAILY (route: oral) Med Classific ation: Hematolog ical Agents finasteride 5 mg tablet 06-29 00:00: 00 Yes [id number] 1 tablet DAILY 1 tablet DAILY (route: oral) Med Classific ation: Genitouri nary Therapy gabapentin 100 mg capsule 06-29 00:00: 00 Yes [id number] 1 capsule DAILY 1 capsule DAILY (route: oral) Med Classific ation: Central Nervous System Agents gabapentin 300 mg capsule 06-29 00:00: 00 Yes [id number] 1 capsule BEDTIME 1 capsule BEDTIME (route: oral) Med Classific ation: Central Nervous System Agents mirtazapine 45 mg tablet 06-29 00:00: 00 Yes [id number] 1 tablet DAILY 1 tablet DAILY (route: oral) Med Classific ation: Central Nervous System Agents pantoprazol e 40 mg tablet,baltazar yed release 06-29 00:00: 00 10-21 23:59 :00 No [id number] 1 tablet DAILY 1 tablet DAILY (route: oral) Med Classific ation: Gastroint estinal Therapy Agents ropinirole 0.25 mg tablet 06-29 00:00: 00 Yes [id number] 2 tablet DAILY 2 tablet DAILY (route: oral) Med Classific ation: Central Nervous System Agents Rytary 36.25 mg-145 mg capsule,ext ended release 06-29 00:00: 00 Yes [id number] 3 capsule 4 TIMES DAILY 3 capsule 4 TIMES DAILY (route: oral) Med Classific ation: Central Nervous System Agents venlafaxine ER 225 mg tablet,exte nded release 24 hr 06-29 00:00: 00 Yes [id number] 1 tablet DAILY 1 tablet DAILY (route: oral) Med Classific ation: Central Nervous System Agents albuterol sulfate HFA 90 mcg/actuati on aerosol inhaler 06-29 00:00: 00 Yes [id number] 2 puff EVERY 6 HOURS 2 puff EVERY 6 HOURS (route: inhalation ) Med Classific ation: Respirato ry Therapy Agents Breo Ellipta 100 mcg-25 mcg/dose powder for inhalation 3-04 00:00: 00 Yes [id number] 1 inhalat ion DAILY 1 inhalation DAILY (route: inhalation ) Med Classific ation: Respirato ry Therapy Agents pantoprazol e 40 mg tablet,baltazar yed release 3- 00:00: 00 10-21 23:59 :00 No [id number] 1 tablet 2 TIMES DAILY 1 tablet 2 TIMES DAILY (route: oral) Med Classific ation: Gastroint estinal Therapy Agents fluconazole 200 mg tablet - 00:00: 00 Yes [id number] 200 mg DAILY 200 mg DAILY (route: oral) Alternate Route: SUBLINGUA L. Med Classific ation: Anti-Infe ctive Agents Carafate 100 mg/mL oral suspension 10-26 00:00: 00 Yes [id number] 10 mL 4 TIMES DAILY 10 mL 4 TIMES DAILY (route: oral) Med Classific ation: Gastroint estinal Therapy Agents Voquezna 20 mg tablet 10-26 00:00: 00 12-03 00:58 :03.3 47 No [id number] 1 tablet 2 TIMES DAILY 1 tablet 2 TIMES DAILY (route: oral) Med Classific ation: Gastroint estinal Therapy Agents Voquezna 20 mg tablet 10-21 00:00: 00 Yes [id number] 1 tablet 2 TIMES DAILY 1 tablet [...] BLOCKAGE/LEAKAGE, HEAVY SEDIMENT. 1 - 3 PRN LONG-TERM VISITS FOR CATHETER CHANGE(S) AND/OR TROUBLESHOOTING. [code = SKILLED NURSE TO INSTRUCT PATIENT/CAREGIVER AND PERFORM CARE AND MANAGEMENT OF INDWELLING URINARY CATHETER. [place] CATHETER INSERTION WITH 18 FR CATHETER WITH 10 ML BALLOON VIA STERILE TECHNIQUE, CHANGE Q 4 WEEKS AND PRN FOR LEAKING OR MALFUNCTIONING CATHETER. IRRIGATE URINARY CATHETER WITH 30-60CC NORMAL SALINE PRN BLOCKAGE/LEAKAGE, HEAVY SEDIMENT. 1 - 3 PRN LONG-TERM VISITS FOR CATHETER CHANGE(S) AND/OR TROUBLESHOOTING.] Future [...] MAINTAIN SITUATIONAL AWARENESS AND WILL NOTIFY CLINICAL DISTRIBUTION ASSOCIATE AND PHYSICIAN/PROVIDER WITH ANY CHANGE IN CONDITION. [code = SKILLED NURSE TO PERFORM ENVIRONMENTAL SAFETY RISK ASSESSMENT AND FALL RISK ASSESSMENT AND PROVIDE INSTRUCTION TO IMPLEMENT ENVIRONMENTAL SAFETY AND FALL PREVENTION STRATEGIES THROUGHOUT THE CERTIFICATION PERIOD. SKILLED NURSE WILL MAINTAIN SITUATIONAL AWARENESS AND WILL NOTIFY CLINICAL DISTRIBUTION ASSOCIATE AND PHYSICIAN/PROVIDER WITH ANY CHANGE IN CONDITION.] [...] [place] PATIENT LIVING SITUATION/CAREGIVER STATUS: [facility] WITH SPOUSE SUMMARIZE SKILLED NEED: DISEASE [...] CARE WILL BE ESTABLISHED THAT MEETS PATIENT'S LONG-TERM NEEDS AND INCLUDES PATIENT GOAL FOR HOME [...] End Date/Time Encounter Type Admission Type Attending [facility] Care Department Encounter ID Discharge Date Discharge Status Discharge Condition Discharge Reason Percent Goals Met 2025-02-24 00:00:00 2025-04-24 00:00:00 Outpatient RECERTIFIC ATION DEMETRI SLAUGHTER [facility] [id number] 6.25
--- OUTSIDE RECORDS SUMMARY | 2025-04-23 19:00 | XMS_ITS | Clinical Summary ---
Author Organization Unknown Care Team Providers Care Failure Analysis Engineer Name Role Phone DARIAN DANGELO, ANYA Unavailable Unavaila aleisha CHRISTENSEN SECURITY LEAD/DINKEY MECHANIC, RENAN Unavailable Unava susie SLAUGHTER RN, DEMETRI Unavailable Unavailable Payers Payer Name Policy Type Policy Number Effective Date Expira tion Date MEDICARE - [facility] - PD [id number] Problems Condition Name Condition Details Condition Category [...] 01-11 00:00: 00 01-18 23:59 :00 No [id number] 1 tablet 2 TIMES DAILY 1 tablet 2 TIMES DAILY (route: oral) Med Classific ation: Anti-Infe ctive Agents lactulose 10 gram/15 mL oral solution 01-11 00:00: 00 04-01 23:59 :00 No [id number] 30 g DAILY 30 g DAILY (route: oral) Med Classific ation: Gastroint estinal Therapy Agents Rytary 36.25 mg-145 mg capsule,ext ended release 13 00:00: 00 04-01 23:59 :00 No [id number] 4 capsule 4 TIMES DAILY 4 capsule 4 TIMES DAILY (route: oral) Med Classific ation: Central Nervous System Agents Breo Ellipta 100 mcg-25 mcg/dose powder for inhalation - 00:00: 00 04-01 23:59 :00 No [id number] 1 inhalat ion ONCE DAILY 1 inhalation ONCE DAILY (route: inhalation ) Med Classific ation: Respirato ry Therapy Agents mirtazapine 45 mg tablet 12-12 00:00: 00 04-01 23:59 :00 No [id number] 1 tablet DAILY 1 tablet DAILY (route: oral) Med Classific ation: Central Nervous System Agents docusate sodium 100 mg capsule 16 00:00: 00 04-01 23:59 :00 No [id number] 1 capsule 2 TIMES DAILY 1 capsule 2 TIMES DAILY (route: oral) Med Classific ation: Gastroint estinal Therapy Agents Eliquis 5 mg tablet 10-26 00:00: 00 04-01 23:59 :00 No [id number] 1 tablet 2 TIMES DAILY 1 tablet 2 TIMES DAILY (route: oral) Med Classific ation: Hematolog ical Agents ferrous sulfate 325 mg (65 mg iron) tablet 10-26 00:00: 00 04-01 23:59 :00 No [id number] 1 tablet DAILY 1 tablet DAILY (route: oral) Med Classific ation: Electroly te Balance-N utritiona l Products finasteride 5 mg tablet 10-26 00:00: 00 04-01 23:59 :00 No [id number] 1 tablet DAILY 1 tablet DAILY (route: oral) Med Classific ation: Genitouri nary Therapy furosemide 40 mg tablet 10-26 00:00: 00 04-01 23:59 :00 No [id number] 1 tablet 2 TIMES DAILY 1 tablet 2 TIMES DAILY (route: oral) Med Classific ation: Cardiovas cular Therapy Agents magnesium 400 mg (as magnesium oxide) tablet 10-26 00:00: 00 04-01 23:59 :00 No [id number] 1 tablet DAILY 1 tablet DAILY (route: oral) Med Classific ation: Electroly te Balance-N utritiona l Products prednisolon e acetate 1 % eye drops,suspe nsion 10-26 00:00: 00 04-01 23:59 :00 No [id number] 1 drops 3 TIMES DAILY 1 drops 3 TIMES DAILY (route: ophthalmic (eye)) Med Classific ation: Ophthalmi c Agents ropinirole 0.25 mg tablet 09-28 00:00: 00 04-01 23:59 :00 No [id number] Per instruc tions DIRECTED Per instructio ns DIRECTED (route: oral) Med Classific ation: Central Nervous System Agents venlafaxine ER 225 mg tablet,exte nded release 24 hr 10-26 00:00: 00 04-01 23:59 :00 No [id number] 1 tablet DAILY 1 tablet DAILY (route: oral) Med Classific ation: Central Nervous System Agents Vitamin D3 125 mcg (5,000 unit) tablet 09-28 00:00: 00 04-01 23:59 :00 No [id number] 1 tablet DAILY 1 tablet DAILY (route: oral) Med Classific ation: Electroly te Balance-N utritiona l Products clonazepam 0.5 mg tablet 2023-04 0-11 00:00: 00 04-01 23:59 :00 No [id number] Per instruc tions BEDTIME Per instructio ns BEDTIME (route: oral) Med Classific ation: Central Nervous System Agents acetaminoph en 325 mg tablet 04-30 00:00: 00 06-27 23:59 :00 No [id number] 2 tablet EVERY 4 HOURS 2 tablet EVERY 4 HOURS (route: oral) Med Classific ation: Analgesic , Anti-infl ammatory or Antipyret ic albuterol sulfate HFA 90 mcg/actuati on aerosol inhaler 04-30 00:00: 00 06-27 23:59 :00 No [id number] 2 puff EVERY 6 HOURS 2 puff EVERY 6 HOURS (route: inhalation ) Med Classific ation: Respirato ry Therapy Agents amantadine HCl 100 mg tablet 04-30 00:00: 00 06-27 23:59 :00 No [id number] 1 tablet DAILY 1 tablet DAILY (route: oral) Med Classific ation: Central Nervous System Agents amoxicillin 500 mg capsule 04-30 00:00: 00 06-27 23:59 :00 No [id number] 4 capsule DIRECTED 4 capsule DIRECTED (route: oral) Med Classific ation: Anti-Infe ctive Agents Breo Ellipta 100 mcg-25 mcg/dose powder for inhalation 04-30 00:00: 00 06-27 23:59 :00 No [id number] 1 inhalat ion DAILY 1 inhalation DAILY (route: inhalation ) Med Classific ation: Respirato ry Therapy Agents clonazepam 0.5 mg tablet 04-30 00:00: 00 06-27 23:59 :00 No [id number] 1 tablet BEDTIME 1 tablet BEDTIME (route: oral) Med Classific ation: Central Nervous System Agents docusate sodium 100 mg capsule 04-30 00:00: 00 06-27 23:59 :00 No [id number] 1 capsule 2 TIMES DAILY 1 capsule 2 TIMES DAILY (route: oral) Med Classific ation: Gastroint estinal Therapy Agents Eliquis 5 mg tablet 04-30 00:00: 00 06-27 23:59 :00 No [id number] 1 tablet 2 TIMES DAILY 1 tablet 2 TIMES DAILY (route: oral) Med Classific ation: Hematolog ical Agents finasteride 5 mg tablet 04-30 00:00: 00 06-27 23:59 :00 No [id number] 1 tablet DAILY 1 tablet DAILY (route: oral) Med Classific ation: Genitouri nary Therapy gabapentin 100 mg capsule 04-30 00:00: 00 06-27 23:59 :00 No [id number] 1 capsule DAILY 1 capsule DAILY (route: oral) Med Classific ation: Central Nervous System Agents gabapentin 300 mg capsule - 00:00: 00 06-27 23:59 :00 No [id number] 1 capsule BEDTIME 1 capsule BEDTIME (route: oral) Med Classific ation: Central Nervous System Agents mirtazapine 45 mg tablet - 00:00: 00 06-27 23:59 :00 No [id number] 1 tablet BEDTIME 1 tablet BEDTIME (route: oral) Med Classific ation: Central Nervous System Agents pantoprazol e 40 mg tablet,baltazar yed release - 00:00: 00 06-27 23:59 :00 No [id number] 1 tablet DAILY 1 tablet DAILY (route: oral) Med Classific ation: Gastroint estinal Therapy Agents ropinirole 0.25 mg tablet 04-30 00:00: 00 06-27 23:59 :00 No [id number] 1-4 tablet DIRECTED 1-4 tablet DIRECTED (route: oral) Med Classific ation: Central Nervous System Agents Rytary 36.25 mg-145 mg capsule,ext ended release 04-30 00:00: 00 06-27 23:59 :00 No [id number] 2 capsule 4 TIMES DAILY 2 capsule 4 TIMES DAILY (route: oral) Med Classific ation: Central Nervous System Agents venlafaxine ER 225 mg tablet,exte nded release 24 hr - 00:00: 00 06-27 23:59 :00 No [id number] 1 tablet BEDTIME 1 tablet BEDTIME (route: oral) Med Classific ation: Central Nervous System Agents amantadine HCl 100 mg capsule 3-04 00:00: 00 Yes [id number] 1 capsule DAILY 1 capsule DAILY (route: oral) Med Classific ation: Central Nervous System Agents clonazepam 0.5 mg tablet 3-04 00:00: 00 Yes [id number] 1 tablet BEDTIME 1 tablet BEDTIME (route: oral) Med Classific ation: Central Nervous System Agents Eliquis 5 mg tablet 3-04 00:00: 00 Yes [id number] 1 tablet 2 TIMES DAILY 1 tablet 2 TIMES DAILY (route: oral) Med Classific ation: Hematolog ical Agents finasteride 5 mg tablet 06-29 00:00: 00 Yes [id number] 1 tablet DAILY 1 tablet DAILY (route: oral) Med Classific ation: Genitouri nary Therapy gabapentin 100 mg capsule 06-29 00:00: 00 Yes [id number] 1 capsule DAILY 1 capsule DAILY (route: oral) Med Classific ation: Central Nervous System Agents gabapentin 300 mg capsule 06-29 00:00: 00 Yes [id number] 1 capsule BEDTIME 1 capsule BEDTIME (route: oral) Med Classific ation: Central Nervous System Agents mirtazapine 45 mg tablet 06-29 00:00: 00 Yes [id number] 1 tablet DAILY 1 tablet DAILY (route: oral) Med Classific ation: Central Nervous System Agents pantoprazol e 40 mg tablet,baltazar yed release 06-29 00:00: 00 10-21 23:59 :00 No [id number] 1 tablet DAILY 1 tablet DAILY (route: oral) Med Classific ation: Gastroint estinal Therapy Agents ropinirole 0.25 mg tablet 06-29 00:00: 00 Yes [id number] 2 tablet DAILY 2 tablet DAILY (route: oral) Med Classific ation: Central Nervous System Agents Rytary 36.25 mg-145 mg capsule,ext ended release 06-29 00:00: 00 Yes [id number] 3 capsule 4 TIMES DAILY 3 capsule 4 TIMES DAILY (route: oral) Med Classific ation: Central Nervous System Agents venlafaxine ER 225 mg tablet,exte nded release 24 hr 06-29 00:00: 00 Yes [id number] 1 tablet DAILY 1 tablet DAILY (route: oral) Med Classific ation: Central Nervous System Agents albuterol sulfate HFA 90 mcg/actuati on aerosol inhaler 06-29 00:00: 00 Yes [id number] 2 puff EVERY 6 HOURS 2 puff EVERY 6 HOURS (route: inhalation ) Med Classific ation: Respirato ry Therapy Agents Breo Ellipta 100 mcg-25 mcg/dose powder for inhalation 3-04 00:00: 00 Yes [id number] 1 inhalat ion DAILY 1 inhalation DAILY (route: inhalation ) Med Classific ation: Respirato ry Therapy Agents pantoprazol e 40 mg tablet,baltazar yed release 3- 00:00: 00 10-21 23:59 :00 No [id number] 1 tablet 2 TIMES DAILY 1 tablet 2 TIMES DAILY (route: oral) Med Classific ation: Gastroint estinal Therapy Agents fluconazole 200 mg tablet - 00:00: 00 Yes [id number] 200 mg DAILY 200 mg DAILY (route: oral) Alternate Route: SUBLINGUA L. Med Classific ation: Anti-Infe ctive Agents Carafate 100 mg/mL oral suspension 10-26 00:00: 00 Yes [id number] 10 mL 4 TIMES DAILY 10 mL 4 TIMES DAILY (route: oral) Med Classific ation: Gastroint estinal Therapy Agents Voquezna 20 mg tablet 10-26 00:00: 00 12-03 00:58 :03.3 47 No [id number] 1 tablet 2 TIMES DAILY 1 tablet 2 TIMES DAILY (route: oral) Med Classific ation: Gastroint estinal Therapy Agents Voquezna 20 mg tablet 10-21 00:00: 00 Yes [id number] 1 tablet 2 TIMES DAILY 1 tablet [...] MAINTAIN SITUATIONAL AWARENESS AND WILL NOTIFY CLINICAL BREAD OVEN OPERATOR AND PHYSICIAN/PROVIDER WITH ANY CHANGE IN CONDITION. [code = SKILLED NURSE TO PERFORM ENVIRONMENTAL SAFETY RISK ASSESSMENT AND FALL RISK ASSESSMENT AND PROVIDE INSTRUCTION TO IMPLEMENT ENVIRONMENTAL SAFETY AND FALL PREVENTION STRATEGIES THROUGHOUT THE CERTIFICATION PERIOD. SKILLED NURSE WILL MAINTAIN SITUATIONAL AWARENESS AND WILL NOTIFY CLINICAL BREAD OVEN OPERATOR AND PHYSICIAN/PROVIDER WITH ANY CHANGE IN [...] End Date/Time Encounter Type Admission Type Attending [facility] Care Department Encounter ID Discharge Date Discharge Status Discharge Condition Discharge Reason Percent Goals Met 2025-02-24 00:00:00 2025-04-24 00:00:00 Outpatient RECERTIFIC ATION DEMETRI SLAUGHTER [facility] [id number] 6.25
--- OUTSIDE RECORDS SUMMARY | 2025-04-23 19:00 | XMS_ITS | Clinical Summary ---
Author Organization Unknown Care Team Providers Care Timber Management Assistant Name Role Phone DARIAN DANGELO, ANYA Unavailable Unavaila aleisha CHRISTENSEN PROOFING MACHINE OPERATOR/JEWELRY DIPPER, RENAN Unavailable Unava susie SLAUGHTER RN, DEMETRI Unavailable Unavailable Payers Payer Name Policy Type Policy Number Effective Date Expira tion Date MEDICARE - [facility] CT - PD [id number] Problems Condition Name Condition Details Condition Category [...] 01-11 00:00: 00 01-18 23:59 :00 No [id number] 1 tablet 2 TIMES DAILY 1 tablet 2 TIMES DAILY (route: oral) Med Classific ation: Anti-Infe ctive Agents lactulose 10 gram/15 mL oral solution 01-11 00:00: 00 04-01 23:59 :00 No [id number] 30 g DAILY 30 g DAILY (route: oral) Med Classific ation: Gastroint estinal Therapy Agents Rytary 36.25 mg-145 mg capsule,ext ended release 13 00:00: 00 04-01 23:59 :00 No [id number] 4 capsule 4 TIMES DAILY 4 capsule 4 TIMES DAILY (route: oral) Med Classific ation: Central Nervous System Agents Breo Ellipta 100 mcg-25 mcg/dose powder for inhalation - 00:00: 00 04-01 23:59 :00 No [id number] 1 inhalat ion ONCE DAILY 1 inhalation ONCE DAILY (route: inhalation ) Med Classific ation: Respirato ry Therapy Agents mirtazapine 45 mg tablet 12-12 00:00: 00 04-01 23:59 :00 No [id number] 1 tablet DAILY 1 tablet DAILY (route: oral) Med Classific ation: Central Nervous System Agents docusate sodium 100 mg capsule 16 00:00: 00 04-01 23:59 :00 No [id number] 1 capsule 2 TIMES DAILY 1 capsule 2 TIMES DAILY (route: oral) Med Classific ation: Gastroint estinal Therapy Agents Eliquis 5 mg tablet 10-26 00:00: 00 04-01 23:59 :00 No [id number] 1 tablet 2 TIMES DAILY 1 tablet 2 TIMES DAILY (route: oral) Med Classific ation: Hematolog ical Agents ferrous sulfate 325 mg (65 mg iron) tablet 10-26 00:00: 00 04-01 23:59 :00 No [id number] 1 tablet DAILY 1 tablet DAILY (route: oral) Med Classific ation: Electroly te Balance-N utritiona l Products finasteride 5 mg tablet 10-26 00:00: 00 04-01 23:59 :00 No [id number] 1 tablet DAILY 1 tablet DAILY (route: oral) Med Classific ation: Genitouri nary Therapy furosemide 40 mg tablet 10-26 00:00: 00 04-01 23:59 :00 No [id number] 1 tablet 2 TIMES DAILY 1 tablet 2 TIMES DAILY (route: oral) Med Classific ation: Cardiovas cular Therapy Agents magnesium 400 mg (as magnesium oxide) tablet 10-26 00:00: 00 04-01 23:59 :00 No [id number] 1 tablet DAILY 1 tablet DAILY (route: oral) Med Classific ation: Electroly te Balance-N utritiona l Products prednisolon e acetate 1 % eye drops,suspe nsion 10-26 00:00: 00 04-01 23:59 :00 No [id number] 1 drops 3 TIMES DAILY 1 drops 3 TIMES DAILY (route: ophthalmic (eye)) Med Classific ation: Ophthalmi c Agents ropinirole 0.25 mg tablet 09-28 00:00: 00 04-01 23:59 :00 No [id number] Per instruc tions DIRECTED Per instructio ns DIRECTED (route: oral) Med Classific ation: Central Nervous System Agents venlafaxine ER 225 mg tablet,exte nded release 24 hr 10-26 00:00: 00 04-01 23:59 :00 No [id number] 1 tablet DAILY 1 tablet DAILY (route: oral) Med Classific ation: Central Nervous System Agents Vitamin D3 125 mcg (5,000 unit) tablet 09-28 00:00: 00 04-01 23:59 :00 No [id number] 1 tablet DAILY 1 tablet DAILY (route: oral) Med Classific ation: Electroly te Balance-N utritiona l Products clonazepam 0.5 mg tablet 2023-04 0-11 00:00: 00 04-01 23:59 :00 No [id number] Per instruc tions BEDTIME Per instructio ns BEDTIME (route: oral) Med Classific ation: Central Nervous System Agents acetaminoph en 325 mg tablet 04-30 00:00: 00 06-27 23:59 :00 No [id number] 2 tablet EVERY 4 HOURS 2 tablet EVERY 4 HOURS (route: oral) Med Classific ation: Analgesic , Anti-infl ammatory or Antipyret ic albuterol sulfate HFA 90 mcg/actuati on aerosol inhaler 04-30 00:00: 00 06-27 23:59 :00 No [id number] 2 puff EVERY 6 HOURS 2 puff EVERY 6 HOURS (route: inhalation ) Med Classific ation: Respirato ry Therapy Agents amantadine HCl 100 mg tablet 04-30 00:00: 00 06-27 23:59 :00 No [id number] 1 tablet DAILY 1 tablet DAILY (route: oral) Med Classific ation: Central Nervous System Agents amoxicillin 500 mg capsule 04-30 00:00: 00 06-27 23:59 :00 No [id number] 4 capsule DIRECTED 4 capsule DIRECTED (route: oral) Med Classific ation: Anti-Infe ctive Agents Breo Ellipta 100 mcg-25 mcg/dose powder for inhalation 04-30 00:00: 00 06-27 23:59 :00 No [id number] 1 inhalat ion DAILY 1 inhalation DAILY (route: inhalation ) Med Classific ation: Respirato ry Therapy Agents clonazepam 0.5 mg tablet 04-30 00:00: 00 06-27 23:59 :00 No [id number] 1 tablet BEDTIME 1 tablet BEDTIME (route: oral) Med Classific ation: Central Nervous System Agents docusate sodium 100 mg capsule 04-30 00:00: 00 06-27 23:59 :00 No [id number] 1 capsule 2 TIMES DAILY 1 capsule 2 TIMES DAILY (route: oral) Med Classific ation: Gastroint estinal Therapy Agents Eliquis 5 mg tablet 04-30 00:00: 00 06-27 23:59 :00 No [id number] 1 tablet 2 TIMES DAILY 1 tablet 2 TIMES DAILY (route: oral) Med Classific ation: Hematolog ical Agents finasteride 5 mg tablet 04-30 00:00: 00 06-27 23:59 :00 No [id number] 1 tablet DAILY 1 tablet DAILY (route: oral) Med Classific ation: Genitouri nary Therapy gabapentin 100 mg capsule 04-30 00:00: 00 06-27 23:59 :00 No [id number] 1 capsule DAILY 1 capsule DAILY (route: oral) Med Classific ation: Central Nervous System Agents gabapentin 300 mg capsule - 00:00: 00 06-27 23:59 :00 No [id number] 1 capsule BEDTIME 1 capsule BEDTIME (route: oral) Med Classific ation: Central Nervous System Agents mirtazapine 45 mg tablet - 00:00: 00 06-27 23:59 :00 No [id number] 1 tablet BEDTIME 1 tablet BEDTIME (route: oral) Med Classific ation: Central Nervous System Agents pantoprazol e 40 mg tablet,baltazar yed release - 00:00: 00 06-27 23:59 :00 No [id number] 1 tablet DAILY 1 tablet DAILY (route: oral) Med Classific ation: Gastroint estinal Therapy Agents ropinirole 0.25 mg tablet 04-30 00:00: 00 06-27 23:59 :00 No [id number] 1-4 tablet DIRECTED 1-4 tablet DIRECTED (route: oral) Med Classific ation: Central Nervous System Agents Rytary 36.25 mg-145 mg capsule,ext ended release 04-30 00:00: 00 06-27 23:59 :00 No [id number] 2 capsule 4 TIMES DAILY 2 capsule 4 TIMES DAILY (route: oral) Med Classific ation: Central Nervous System Agents venlafaxine ER 225 mg tablet,exte nded release 24 hr - 00:00: 00 06-27 23:59 :00 No [id number] 1 tablet BEDTIME 1 tablet BEDTIME (route: oral) Med Classific ation: Central Nervous System Agents amantadine HCl 100 mg capsule 3-04 00:00: 00 Yes [id number] 1 capsule DAILY 1 capsule DAILY (route: oral) Med Classific ation: Central Nervous System Agents clonazepam 0.5 mg tablet 3-04 00:00: 00 Yes [id number] 1 tablet BEDTIME 1 tablet BEDTIME (route: oral) Med Classific ation: Central Nervous System Agents Eliquis 5 mg tablet 3-04 00:00: 00 Yes [id number] 1 tablet 2 TIMES DAILY 1 tablet 2 TIMES DAILY (route: oral) Med Classific ation: Hematolog ical Agents finasteride 5 mg tablet 06-29 00:00: 00 Yes [id number] 1 tablet DAILY 1 tablet DAILY (route: oral) Med Classific ation: Genitouri nary Therapy gabapentin 100 mg capsule 06-29 00:00: 00 Yes [id number] 1 capsule DAILY 1 capsule DAILY (route: oral) Med Classific ation: Central Nervous System Agents gabapentin 300 mg capsule 06-29 00:00: 00 Yes [id number] 1 capsule BEDTIME 1 capsule BEDTIME (route: oral) Med Classific ation: Central Nervous System Agents mirtazapine 45 mg tablet 06-29 00:00: 00 Yes [id number] 1 tablet DAILY 1 tablet DAILY (route: oral) Med Classific ation: Central Nervous System Agents pantoprazol e 40 mg tablet,baltazar yed release 06-29 00:00: 00 10-21 23:59 :00 No [id number] 1 tablet DAILY 1 tablet DAILY (route: oral) Med Classific ation: Gastroint estinal Therapy Agents ropinirole 0.25 mg tablet 06-29 00:00: 00 Yes [id number] 2 tablet DAILY 2 tablet DAILY (route: oral) Med Classific ation: Central Nervous System Agents Rytary 36.25 mg-145 mg capsule,ext ended release 06-29 00:00: 00 Yes [id number] 3 capsule 4 TIMES DAILY 3 capsule 4 TIMES DAILY (route: oral) Med Classific ation: Central Nervous System Agents venlafaxine ER 225 mg tablet,exte nded release 24 hr 06-29 00:00: 00 Yes [id number] 1 tablet DAILY 1 tablet DAILY (route: oral) Med Classific ation: Central Nervous System Agents albuterol sulfate HFA 90 mcg/actuati on aerosol inhaler 06-29 00:00: 00 Yes [id number] 2 puff EVERY 6 HOURS 2 puff EVERY 6 HOURS (route: inhalation ) Med Classific ation: Respirato ry Therapy Agents Breo Ellipta 100 mcg-25 mcg/dose powder for inhalation 3-04 00:00: 00 Yes [id number] 1 inhalat ion DAILY 1 inhalation DAILY (route: inhalation ) Med Classific ation: Respirato ry Therapy Agents pantoprazol e 40 mg tablet,baltazar yed release 3- 00:00: 00 10-21 23:59 :00 No [id number] 1 tablet 2 TIMES DAILY 1 tablet 2 TIMES DAILY (route: oral) Med Classific ation: Gastroint estinal Therapy Agents fluconazole 200 mg tablet - 00:00: 00 Yes [id number] 200 mg DAILY 200 mg DAILY (route: oral) Alternate Route: SUBLINGUA L. Med Classific ation: Anti-Infe ctive Agents Carafate 100 mg/mL oral suspension 10-26 00:00: 00 Yes [id number] 10 mL 4 TIMES DAILY 10 mL 4 TIMES DAILY (route: oral) Med Classific ation: Gastroint estinal Therapy Agents Voquezna 20 mg tablet 10-26 00:00: 00 12-03 00:58 :03.3 47 No [id number] 1 tablet 2 TIMES DAILY 1 tablet 2 TIMES DAILY (route: oral) Med Classific ation: Gastroint estinal Therapy Agents Voquezna 20 mg tablet 10-21 00:00: 00 Yes [id number] 1 tablet 2 TIMES DAILY 1 tablet [...] MAINTAIN SITUATIONAL AWARENESS AND WILL NOTIFY CLINICAL DIAL LATHE OPERATOR AND PHYSICIAN/PROVIDER WITH ANY CHANGE IN CONDITION. [code = SKILLED NURSE TO PERFORM ENVIRONMENTAL SAFETY RISK ASSESSMENT AND FALL RISK ASSESSMENT AND PROVIDE INSTRUCTION TO IMPLEMENT ENVIRONMENTAL SAFETY AND FALL PREVENTION STRATEGIES THROUGHOUT THE CERTIFICATION PERIOD. SKILLED NURSE WILL MAINTAIN SITUATIONAL AWARENESS AND WILL NOTIFY CLINICAL DIAL LATHE OPERATOR AND PHYSICIAN/PROVIDER WITH ANY CHANGE IN [...] LASIX PATIENT LIVING SITUATION/CAREGIVER STATUS: [facility] SUMMAR[facility] SKILLED NEED: [...] RECERTIFIC ATION DEMETRI SLAUGHTER [facility] [id number] 6.25
--- OUTSIDE RECORDS SUMMARY | 2025-04-23 19:00 | XMS_ITS | Clinical Summary ---
Author Organization Unknown Care Team Providers Care Health Unit Coordinator Name Role Phone DARIAN DANGELO, ANYA Unavailable Unavaila aleisha CHRISTENSEN TRAFFIC I MANAGER/COTTON STOMPER, RENAN Unavailable Unava susie SLAUGHTER RN, DEMETRI Unavailable Unavailable Payers Payer Name Policy Type Policy Number Effective Date Expira tion Date MEDICARE - [facility] CT - PD [id number] Problems Condition Name Condition Details Condition Category [...] 01-11 00:00: 00 01-18 23:59 :00 No [id number] 1 tablet 2 TIMES DAILY 1 tablet 2 TIMES DAILY (route: oral) Med Classific ation: Anti-Infe ctive Agents lactulose 10 gram/15 mL oral solution 01-11 00:00: 00 04-01 23:59 :00 No [id number] 30 g DAILY 30 g DAILY (route: oral) Med Classific ation: Gastroint estinal Therapy Agents Rytary 36.25 mg-145 mg capsule,ext ended release 13 00:00: 00 04-01 23:59 :00 No [id number] 4 capsule 4 TIMES DAILY 4 capsule 4 TIMES DAILY (route: oral) Med Classific ation: Central Nervous System Agents Breo Ellipta 100 mcg-25 mcg/dose powder for inhalation - 00:00: 00 04-01 23:59 :00 No [id number] 1 inhalat ion ONCE DAILY 1 inhalation ONCE DAILY (route: inhalation ) Med Classific ation: Respirato ry Therapy Agents mirtazapine 45 mg tablet 12-12 00:00: 00 04-01 23:59 :00 No [id number] 1 tablet DAILY 1 tablet DAILY (route: oral) Med Classific ation: Central Nervous System Agents docusate sodium 100 mg capsule 16 00:00: 00 04-01 23:59 :00 No [id number] 1 capsule 2 TIMES DAILY 1 capsule 2 TIMES DAILY (route: oral) Med Classific ation: Gastroint estinal Therapy Agents Eliquis 5 mg tablet 10-26 00:00: 00 04-01 23:59 :00 No [id number] 1 tablet 2 TIMES DAILY 1 tablet 2 TIMES DAILY (route: oral) Med Classific ation: Hematolog ical Agents ferrous sulfate 325 mg (65 mg iron) tablet 10-26 00:00: 00 04-01 23:59 :00 No [id number] 1 tablet DAILY 1 tablet DAILY (route: oral) Med Classific ation: Electroly te Balance-N utritiona l Products finasteride 5 mg tablet 10-26 00:00: 00 04-01 23:59 :00 No [id number] 1 tablet DAILY 1 tablet DAILY (route: oral) Med Classific ation: Genitouri nary Therapy furosemide 40 mg tablet 10-26 00:00: 00 04-01 23:59 :00 No [id number] 1 tablet 2 TIMES DAILY 1 tablet 2 TIMES DAILY (route: oral) Med Classific ation: Cardiovas cular Therapy Agents magnesium 400 mg (as magnesium oxide) tablet 10-26 00:00: 00 04-01 23:59 :00 No [id number] 1 tablet DAILY 1 tablet DAILY (route: oral) Med Classific ation: Electroly te Balance-N utritiona l Products prednisolon e acetate 1 % eye drops,suspe nsion 10-26 00:00: 00 04-01 23:59 :00 No [id number] 1 drops 3 TIMES DAILY 1 drops 3 TIMES DAILY (route: ophthalmic (eye)) Med Classific ation: Ophthalmi c Agents ropinirole 0.25 mg tablet 09-28 00:00: 00 04-01 23:59 :00 No [id number] Per instruc tions DIRECTED Per instructio ns DIRECTED (route: oral) Med Classific ation: Central Nervous System Agents venlafaxine ER 225 mg tablet,exte nded release 24 hr 10-26 00:00: 00 04-01 23:59 :00 No [id number] 1 tablet DAILY 1 tablet DAILY (route: oral) Med Classific ation: Central Nervous System Agents Vitamin D3 125 mcg (5,000 unit) tablet 09-28 00:00: 00 04-01 23:59 :00 No [id number] 1 tablet DAILY 1 tablet DAILY (route: oral) Med Classific ation: Electroly te Balance-N utritiona l Products clonazepam 0.5 mg tablet 2023-04 0-11 00:00: 00 04-01 23:59 :00 No [id number] Per instruc tions BEDTIME Per instructio ns BEDTIME (route: oral) Med Classific ation: Central Nervous System Agents acetaminoph en 325 mg tablet 04-30 00:00: 00 06-27 23:59 :00 No [id number] 2 tablet EVERY 4 HOURS 2 tablet EVERY 4 HOURS (route: oral) Med Classific ation: Analgesic , Anti-infl ammatory or Antipyret ic albuterol sulfate HFA 90 mcg/actuati on aerosol inhaler 04-30 00:00: 00 06-27 23:59 :00 No [id number] 2 puff EVERY 6 HOURS 2 puff EVERY 6 HOURS (route: inhalation ) Med Classific ation: Respirato ry Therapy Agents amantadine HCl 100 mg tablet 04-30 00:00: 00 06-27 23:59 :00 No [id number] 1 tablet DAILY 1 tablet DAILY (route: oral) Med Classific ation: Central Nervous System Agents amoxicillin 500 mg capsule 04-30 00:00: 00 06-27 23:59 :00 No [id number] 4 capsule DIRECTED 4 capsule DIRECTED (route: oral) Med Classific ation: Anti-Infe ctive Agents Breo Ellipta 100 mcg-25 mcg/dose powder for inhalation 04-30 00:00: 00 06-27 23:59 :00 No [id number] 1 inhalat ion DAILY 1 inhalation DAILY (route: inhalation ) Med Classific ation: Respirato ry Therapy Agents clonazepam 0.5 mg tablet 04-30 00:00: 00 06-27 23:59 :00 No [id number] 1 tablet BEDTIME 1 tablet BEDTIME (route: oral) Med Classific ation: Central Nervous System Agents docusate sodium 100 mg capsule 04-30 00:00: 00 06-27 23:59 :00 No [id number] 1 capsule 2 TIMES DAILY 1 capsule 2 TIMES DAILY (route: oral) Med Classific ation: Gastroint estinal Therapy Agents Eliquis 5 mg tablet 04-30 00:00: 00 06-27 23:59 :00 No [id number] 1 tablet 2 TIMES DAILY 1 tablet 2 TIMES DAILY (route: oral) Med Classific ation: Hematolog ical Agents finasteride 5 mg tablet 04-30 00:00: 00 06-27 23:59 :00 No [id number] 1 tablet DAILY 1 tablet DAILY (route: oral) Med Classific ation: Genitouri nary Therapy gabapentin 100 mg capsule 04-30 00:00: 00 06-27 23:59 :00 No [id number] 1 capsule DAILY 1 capsule DAILY (route: oral) Med Classific ation: Central Nervous System Agents gabapentin 300 mg capsule - 00:00: 00 06-27 23:59 :00 No [id number] 1 capsule BEDTIME 1 capsule BEDTIME (route: oral) Med Classific ation: Central Nervous System Agents mirtazapine 45 mg tablet - 00:00: 00 06-27 23:59 :00 No [id number] 1 tablet BEDTIME 1 tablet BEDTIME (route: oral) Med Classific ation: Central Nervous System Agents pantoprazol e 40 mg tablet,baltazar yed release - 00:00: 00 06-27 23:59 :00 No [id number] 1 tablet DAILY 1 tablet DAILY (route: oral) Med Classific ation: Gastroint estinal Therapy Agents ropinirole 0.25 mg tablet 04-30 00:00: 00 06-27 23:59 :00 No [id number] 1-4 tablet DIRECTED 1-4 tablet DIRECTED (route: oral) Med Classific ation: Central Nervous System Agents Rytary 36.25 mg-145 mg capsule,ext ended release 04-30 00:00: 00 06-27 23:59 :00 No [id number] 2 capsule 4 TIMES DAILY 2 capsule 4 TIMES DAILY (route: oral) Med Classific ation: Central Nervous System Agents venlafaxine ER 225 mg tablet,exte nded release 24 hr - 00:00: 00 06-27 23:59 :00 No [id number] 1 tablet BEDTIME 1 tablet BEDTIME (route: oral) Med Classific ation: Central Nervous System Agents amantadine HCl 100 mg capsule 3-04 00:00: 00 Yes [id number] 1 capsule DAILY 1 capsule DAILY (route: oral) Med Classific ation: Central Nervous System Agents clonazepam 0.5 mg tablet 3-04 00:00: 00 Yes [id number] 1 tablet BEDTIME 1 tablet BEDTIME (route: oral) Med Classific ation: Central Nervous System Agents Eliquis 5 mg tablet 3-04 00:00: 00 Yes [id number] 1 tablet 2 TIMES DAILY 1 tablet 2 TIMES DAILY (route: oral) Med Classific ation: Hematolog ical Agents finasteride 5 mg tablet 06-29 00:00: 00 Yes [id number] 1 tablet DAILY 1 tablet DAILY (route: oral) Med Classific ation: Genitouri nary Therapy gabapentin 100 mg capsule 06-29 00:00: 00 Yes [id number] 1 capsule DAILY 1 capsule DAILY (route: oral) Med Classific ation: Central Nervous System Agents gabapentin 300 mg capsule 06-29 00:00: 00 Yes [id number] 1 capsule BEDTIME 1 capsule BEDTIME (route: oral) Med Classific ation: Central Nervous System Agents mirtazapine 45 mg tablet 06-29 00:00: 00 Yes [id number] 1 tablet DAILY 1 tablet DAILY (route: oral) Med Classific ation: Central Nervous System Agents pantoprazol e 40 mg tablet,baltazar yed release 06-29 00:00: 00 10-21 23:59 :00 No [id number] 1 tablet DAILY 1 tablet DAILY (route: oral) Med Classific ation: Gastroint estinal Therapy Agents ropinirole 0.25 mg tablet 06-29 00:00: 00 Yes [id number] 2 tablet DAILY 2 tablet DAILY (route: oral) Med Classific ation: Central Nervous System Agents Rytary 36.25 mg-145 mg capsule,ext ended release 06-29 00:00: 00 Yes [id number] 3 capsule 4 TIMES DAILY 3 capsule 4 TIMES DAILY (route: oral) Med Classific ation: Central Nervous System Agents venlafaxine ER 225 mg tablet,exte nded release 24 hr 06-29 00:00: 00 Yes [id number] 1 tablet DAILY 1 tablet DAILY (route: oral) Med Classific ation: Central Nervous System Agents albuterol sulfate HFA 90 mcg/actuati on aerosol inhaler 06-29 00:00: 00 Yes [id number] 2 puff EVERY 6 HOURS 2 puff EVERY 6 HOURS (route: inhalation ) Med Classific ation: Respirato ry Therapy Agents Breo Ellipta 100 mcg-25 mcg/dose powder for inhalation 3-04 00:00: 00 Yes [id number] 1 inhalat ion DAILY 1 inhalation DAILY (route: inhalation ) Med Classific ation: Respirato ry Therapy Agents pantoprazol e 40 mg tablet,baltazar yed release 3- 00:00: 00 10-21 23:59 :00 No [id number] 1 tablet 2 TIMES DAILY 1 tablet 2 TIMES DAILY (route: oral) Med Classific ation: Gastroint estinal Therapy Agents fluconazole 200 mg tablet - 00:00: 00 Yes [id number] 200 mg DAILY 200 mg DAILY (route: oral) Alternate Route: SUBLINGUA L. Med Classific ation: Anti-Infe ctive Agents Carafate 100 mg/mL oral suspension 10-26 00:00: 00 Yes [id number] 10 mL 4 TIMES DAILY 10 mL 4 TIMES DAILY (route: oral) Med Classific ation: Gastroint estinal Therapy Agents Voquezna 20 mg tablet 10-26 00:00: 00 12-03 00:58 :03.3 47 No [id number] 1 tablet 2 TIMES DAILY 1 tablet 2 TIMES DAILY (route: oral) Med Classific ation: Gastroint estinal Therapy Agents Voquezna 20 mg tablet 10-21 00:00: 00 Yes [id number] 1 tablet 2 TIMES DAILY 1 tablet [...] MAINTAIN SITUATIONAL AWARENESS AND WILL NOTIFY CLINICAL FERRIS WHEEL OPERATOR AND PHYSICIAN/PROVIDER WITH ANY CHANGE IN CONDITION. [code = SKILLED NURSE TO PERFORM ENVIRONMENTAL SAFETY RISK ASSESSMENT AND FALL RISK ASSESSMENT AND PROVIDE INSTRUCTION TO IMPLEMENT ENVIRONMENTAL SAFETY AND FALL PREVENTION STRATEGIES THROUGHOUT THE CERTIFICATION PERIOD. SKILLED NURSE WILL MAINTAIN SITUATIONAL AWARENESS AND WILL NOTIFY CLINICAL FERRIS WHEEL OPERATOR AND PHYSICIAN/PROVIDER WITH ANY CHANGE IN [...] LASIX PATIENT LIVING SITUATION/CAREGIVER STATUS: [facility] SUMMAR[facility] SKILLED NEED: [...] 2025-04-24 00:00:00 Outpatient RECERTIFIC ATION DEMETRI SLAUGHTER [facility] [id number] 6.25
--- OUTSIDE RECORDS SUMMARY | 2025-04-23 19:00 | XMS_ITS | Clinical Summary ---
Author Organization Unknown Care Team Providers Care Furnace Clerk Name Role Phone DARIAN DANGELO, ANYA Unavailable Unavaila aleisha [employer] MEDIA SPECIALIST/CHECK OUT CASHIER, RENAN Unavailable Unava susie SLAUGHTER RN, DEMETRI Unavailable Unavailable Payers Payer Name Policy Type Policy Number Effective Date Expira tion Date MEDICARE - [facility] - PD [id number] Problems Condition Name Condition Details Condition Category [...] 01-11 00:00: 00 01-18 23:59 :00 No [id number] 1 tablet 2 TIMES DAILY 1 tablet 2 TIMES DAILY (route: oral) Med Classific ation: Anti-Infe ctive Agents lactulose 10 gram/15 mL oral solution 01-11 00:00: 00 04-01 23:59 :00 No [id number] 30 g DAILY 30 g DAILY (route: oral) Med Classific ation: Gastroint estinal Therapy Agents Rytary 36.25 mg-145 mg capsule,ext ended release 13 00:00: 00 04-01 23:59 :00 No [id number] 4 capsule 4 TIMES DAILY 4 capsule 4 TIMES DAILY (route: oral) Med Classific ation: Central Nervous System Agents Breo Ellipta 100 mcg-25 mcg/dose powder for inhalation - 00:00: 00 04-01 23:59 :00 No [id number] 1 inhalat ion ONCE DAILY 1 inhalation ONCE DAILY (route: inhalation ) Med Classific ation: Respirato ry Therapy Agents mirtazapine 45 mg tablet 12-12 00:00: 00 04-01 23:59 :00 No [id number] 1 tablet DAILY 1 tablet DAILY (route: oral) Med Classific ation: Central Nervous System Agents docusate sodium 100 mg capsule 16 00:00: 00 04-01 23:59 :00 No [id number] 1 capsule 2 TIMES DAILY 1 capsule 2 TIMES DAILY (route: oral) Med Classific ation: Gastroint estinal Therapy Agents Eliquis 5 mg tablet 10-26 00:00: 00 04-01 23:59 :00 No [id number] 1 tablet 2 TIMES DAILY 1 tablet 2 TIMES DAILY (route: oral) Med Classific ation: Hematolog ical Agents ferrous sulfate 325 mg (65 mg iron) tablet 10-26 00:00: 00 04-01 23:59 :00 No [id number] 1 tablet DAILY 1 tablet DAILY (route: oral) Med Classific ation: Electroly te Balance-N utritiona l Products finasteride 5 mg tablet 10-26 00:00: 00 04-01 23:59 :00 No [id number] 1 tablet DAILY 1 tablet DAILY (route: oral) Med Classific ation: Genitouri nary Therapy furosemide 40 mg tablet 10-26 00:00: 00 04-01 23:59 :00 No [id number] 1 tablet 2 TIMES DAILY 1 tablet 2 TIMES DAILY (route: oral) Med Classific ation: Cardiovas cular Therapy Agents magnesium 400 mg (as magnesium oxide) tablet 10-26 00:00: 00 04-01 23:59 :00 No [id number] 1 tablet DAILY 1 tablet DAILY (route: oral) Med Classific ation: Electroly te Balance-N utritiona l Products prednisolon e acetate 1 % eye drops,suspe nsion 10-26 00:00: 00 04-01 23:59 :00 No [id number] 1 drops 3 TIMES DAILY 1 drops 3 TIMES DAILY (route: ophthalmic (eye)) Med Classific ation: Ophthalmi c Agents ropinirole 0.25 mg tablet 09-28 00:00: 00 04-01 23:59 :00 No [id number] Per instruc tions DIRECTED Per instructio ns DIRECTED (route: oral) Med Classific ation: Central Nervous System Agents venlafaxine ER 225 mg tablet,exte nded release 24 hr 10-26 00:00: 00 04-01 23:59 :00 No [id number] 1 tablet DAILY 1 tablet DAILY (route: oral) Med Classific ation: Central Nervous System Agents Vitamin D3 125 mcg (5,000 unit) tablet 09-28 00:00: 00 04-01 23:59 :00 No [id number] 1 tablet DAILY 1 tablet DAILY (route: oral) Med Classific ation: Electroly te Balance-N utritiona l Products clonazepam 0.5 mg tablet 2023-04 0-11 00:00: 00 04-01 23:59 :00 No [id number] Per instruc tions BEDTIME Per instructio ns BEDTIME (route: oral) Med Classific ation: Central Nervous System Agents acetaminoph en 325 mg tablet 04-30 00:00: 00 06-27 23:59 :00 No [id number] 2 tablet EVERY 4 HOURS 2 tablet EVERY 4 HOURS (route: oral) Med Classific ation: Analgesic , Anti-infl ammatory or Antipyret ic albuterol sulfate HFA 90 mcg/actuati on aerosol inhaler 04-30 00:00: 00 06-27 23:59 :00 No [id number] 2 puff EVERY 6 HOURS 2 puff EVERY 6 HOURS (route: inhalation ) Med Classific ation: Respirato ry Therapy Agents amantadine HCl 100 mg tablet 04-30 00:00: 00 06-27 23:59 :00 No [id number] 1 tablet DAILY 1 tablet DAILY (route: oral) Med Classific ation: Central Nervous System Agents amoxicillin 500 mg capsule 04-30 00:00: 00 06-27 23:59 :00 No [id number] 4 capsule DIRECTED 4 capsule DIRECTED (route: oral) Med Classific ation: Anti-Infe ctive Agents Breo Ellipta 100 mcg-25 mcg/dose powder for inhalation 04-30 00:00: 00 06-27 23:59 :00 No [id number] 1 inhalat ion DAILY 1 inhalation DAILY (route: inhalation ) Med Classific ation: Respirato ry Therapy Agents clonazepam 0.5 mg tablet 04-30 00:00: 00 06-27 23:59 :00 No [id number] 1 tablet BEDTIME 1 tablet BEDTIME (route: oral) Med Classific ation: Central Nervous System Agents docusate sodium 100 mg capsule 04-30 00:00: 00 06-27 23:59 :00 No [id number] 1 capsule 2 TIMES DAILY 1 capsule 2 TIMES DAILY (route: oral) Med Classific ation: Gastroint estinal Therapy Agents Eliquis 5 mg tablet 04-30 00:00: 00 06-27 23:59 :00 No [id number] 1 tablet 2 TIMES DAILY 1 tablet 2 TIMES DAILY (route: oral) Med Classific ation: Hematolog ical Agents finasteride 5 mg tablet 04-30 00:00: 00 06-27 23:59 :00 No [id number] 1 tablet DAILY 1 tablet DAILY (route: oral) Med Classific ation: Genitouri nary Therapy gabapentin 100 mg capsule 04-30 00:00: 00 06-27 23:59 :00 No [id number] 1 capsule DAILY 1 capsule DAILY (route: oral) Med Classific ation: Central Nervous System Agents gabapentin 300 mg capsule - 00:00: 00 06-27 23:59 :00 No [id number] 1 capsule BEDTIME 1 capsule BEDTIME (route: oral) Med Classific ation: Central Nervous System Agents mirtazapine 45 mg tablet - 00:00: 00 06-27 23:59 :00 No [id number] 1 tablet BEDTIME 1 tablet BEDTIME (route: oral) Med Classific ation: Central Nervous System Agents pantoprazol e 40 mg tablet,baltazar yed release - 00:00: 00 06-27 23:59 :00 No [id number] 1 tablet DAILY 1 tablet DAILY (route: oral) Med Classific ation: Gastroint estinal Therapy Agents ropinirole 0.25 mg tablet 04-30 00:00: 00 06-27 23:59 :00 No [id number] 1-4 tablet DIRECTED 1-4 tablet DIRECTED (route: oral) Med Classific ation: Central Nervous System Agents Rytary 36.25 mg-145 mg capsule,ext ended release 04-30 00:00: 00 06-27 23:59 :00 No [id number] 2 capsule 4 TIMES DAILY 2 capsule 4 TIMES DAILY (route: oral) Med Classific ation: Central Nervous System Agents venlafaxine ER 225 mg tablet,exte nded release 24 hr - 00:00: 00 06-27 23:59 :00 No [id number] 1 tablet BEDTIME 1 tablet BEDTIME (route: oral) Med Classific ation: Central Nervous System Agents amantadine HCl 100 mg capsule 3-04 00:00: 00 Yes [id number] 1 capsule DAILY 1 capsule DAILY (route: oral) Med Classific ation: Central Nervous System Agents clonazepam 0.5 mg tablet 3-04 00:00: 00 Yes [id number] 1 tablet BEDTIME 1 tablet BEDTIME (route: oral) Med Classific ation: Central Nervous System Agents Eliquis 5 mg tablet 3-04 00:00: 00 Yes [id number] 1 tablet 2 TIMES DAILY 1 tablet 2 TIMES DAILY (route: oral) Med Classific ation: Hematolog ical Agents finasteride 5 mg tablet 06-29 00:00: 00 Yes [id number] 1 tablet DAILY 1 tablet DAILY (route: oral) Med Classific ation: Genitouri nary Therapy gabapentin 100 mg capsule 06-29 00:00: 00 Yes [id number] 1 capsule DAILY 1 capsule DAILY (route: oral) Med Classific ation: Central Nervous System Agents gabapentin 300 mg capsule 06-29 00:00: 00 Yes [id number] 1 capsule BEDTIME 1 capsule BEDTIME (route: oral) Med Classific ation: Central Nervous System Agents mirtazapine 45 mg tablet 06-29 00:00: 00 Yes [id number] 1 tablet DAILY 1 tablet DAILY (route: oral) Med Classific ation: Central Nervous System Agents pantoprazol e 40 mg tablet,baltazar yed release 06-29 00:00: 00 10-21 23:59 :00 No [id number] 1 tablet DAILY 1 tablet DAILY (route: oral) Med Classific ation: Gastroint estinal Therapy Agents ropinirole 0.25 mg tablet 06-29 00:00: 00 Yes [id number] 2 tablet DAILY 2 tablet DAILY (route: oral) Med Classific ation: Central Nervous System Agents Rytary 36.25 mg-145 mg capsule,ext ended release 06-29 00:00: 00 Yes [id number] 3 capsule 4 TIMES DAILY 3 capsule 4 TIMES DAILY (route: oral) Med Classific ation: Central Nervous System Agents venlafaxine ER 225 mg tablet,exte nded release 24 hr 06-29 00:00: 00 Yes [id number] 1 tablet DAILY 1 tablet DAILY (route: oral) Med Classific ation: Central Nervous System Agents albuterol sulfate HFA 90 mcg/actuati on aerosol inhaler 06-29 00:00: 00 Yes [id number] 2 puff EVERY 6 HOURS 2 puff EVERY 6 HOURS (route: inhalation ) Med Classific ation: Respirato ry Therapy Agents Breo Ellipta 100 mcg-25 mcg/dose powder for inhalation 3-04 00:00: 00 Yes [id number] 1 inhalat ion DAILY 1 inhalation DAILY (route: inhalation ) Med Classific ation: Respirato ry Therapy Agents pantoprazol e 40 mg tablet,baltazar yed release 3- 00:00: 00 10-21 23:59 :00 No [id number] 1 tablet 2 TIMES DAILY 1 tablet 2 TIMES DAILY (route: oral) Med Classific ation: Gastroint estinal Therapy Agents fluconazole 200 mg tablet - 00:00: 00 Yes [id number] 200 mg DAILY 200 mg DAILY (route: oral) Alternate Route: SUBLINGUA L. Med Classific ation: Anti-Infe ctive Agents Carafate 100 mg/mL oral suspension 10-26 00:00: 00 Yes [id number] 10 mL 4 TIMES DAILY 10 mL 4 TIMES DAILY (route: oral) Med Classific ation: Gastroint estinal Therapy Agents Voquezna 20 mg tablet 10-26 00:00: 00 12-03 00:58 :03.3 47 No [id number] 1 tablet 2 TIMES DAILY 1 tablet 2 TIMES DAILY (route: oral) Med Classific ation: Gastroint estinal Therapy Agents Voquezna 20 mg tablet 10-21 00:00: 00 Yes [id number] 1 tablet 2 TIMES DAILY 1 tablet [...] MAINTAIN SITUATIONAL AWARENESS AND WILL NOTIFY CLINICAL AUTOMOTIVE WARRANTY ADMINISTRATOR AND PHYSICIAN/PROVIDER WITH ANY CHANGE IN CONDITION. [code = SKILLED NURSE TO PERFORM ENVIRONMENTAL SAFETY RISK ASSESSMENT AND FALL RISK ASSESSMENT AND PROVIDE INSTRUCTION TO IMPLEMENT ENVIRONMENTAL SAFETY AND FALL PREVENTION STRATEGIES THROUGHOUT THE CERTIFICATION PERIOD. SKILLED NURSE WILL MAINTAIN SITUATIONAL AWARENESS AND WILL NOTIFY CLINICAL AUTOMOTIVE WARRANTY ADMINISTRATOR AND PHYSICIAN/PROVIDER WITH ANY CHANGE IN CONDITION.] [...] LASIX PATIENT LIVING SITUATION/CAREGIVER STATUS: [facility] SKILLED NEED: [...] 2025-04-24 00:00:00 Outpatient RECERTIFIC ATION DEMETRI SLAUGHTER [facility] [id number] 6.25
--- OUTSIDE RECORDS SUMMARY | 2025-04-23 19:00 | XMS_ITS | Clinical Summary ---
Author Organization Unknown Care Team Providers Care Compliance Engineer Name Role Phone DARIAN DANGELO, ANYA Unavailable Unavaila aleisha [employer] OPERATOR/RN INFUSION, RENAN Unavailable Unava susie SLAUGHTER RN, DEMETRI Unavailable Unavailable Payers Payer Name Policy Type Policy Number Effective Date Expira tion Date MEDICARE - [facility] - PD [id number] Problems Condition Name Condition Details Condition Category [...] OF URINARY DEVICE Active 04-28 00:00: 00 [facility] (CURRENT) USE OF ANTICOAGULAN TS Active 04-28 [...] 01-11 00:00: 00 01-18 23:59 :00 No [id number] 1 tablet 2 TIMES DAILY 1 tablet 2 TIMES DAILY (route: oral) Med Classific ation: Anti-Infe ctive Agents lactulose 10 gram/15 mL oral solution 01-11 00:00: 00 04-01 23:59 :00 No [id number] 30 g DAILY 30 g DAILY (route: oral) Med Classific ation: Gastroint estinal Therapy Agents Rytary 36.25 mg-145 mg capsule,ext ended release 13 00:00: 00 04-01 23:59 :00 No [id number] 4 capsule 4 TIMES DAILY 4 capsule 4 TIMES DAILY (route: oral) Med Classific ation: Central Nervous System Agents Breo Ellipta 100 mcg-25 mcg/dose powder for inhalation - 00:00: 00 04-01 23:59 :00 No [id number] 1 inhalat ion ONCE DAILY 1 inhalation ONCE DAILY (route: inhalation ) Med Classific ation: Respirato ry Therapy Agents mirtazapine 45 mg tablet 12-12 00:00: 00 04-01 23:59 :00 No [id number] 1 tablet DAILY 1 tablet DAILY (route: oral) Med Classific ation: Central Nervous System Agents docusate sodium 100 mg capsule 16 00:00: 00 04-01 23:59 :00 No [id number] 1 capsule 2 TIMES DAILY 1 capsule 2 TIMES DAILY (route: oral) Med Classific ation: Gastroint estinal Therapy Agents Eliquis 5 mg tablet 10-26 00:00: 00 04-01 23:59 :00 No [id number] 1 tablet 2 TIMES DAILY 1 tablet 2 TIMES DAILY (route: oral) Med Classific ation: Hematolog ical Agents ferrous sulfate 325 mg (65 mg iron) tablet 10-26 00:00: 00 04-01 23:59 :00 No [id number] 1 tablet DAILY 1 tablet DAILY (route: oral) Med Classific ation: Electroly te Balance-N utritiona l Products finasteride 5 mg tablet 10-26 00:00: 00 04-01 23:59 :00 No [id number] 1 tablet DAILY 1 tablet DAILY (route: oral) Med Classific ation: Genitouri nary Therapy furosemide 40 mg tablet 10-26 00:00: 00 04-01 23:59 :00 No [id number] 1 tablet 2 TIMES DAILY 1 tablet 2 TIMES DAILY (route: oral) Med Classific ation: Cardiovas cular Therapy Agents magnesium 400 mg (as magnesium oxide) tablet 10-26 00:00: 00 04-01 23:59 :00 No [id number] 1 tablet DAILY 1 tablet DAILY (route: oral) Med Classific ation: Electroly te Balance-N utritiona l Products prednisolon e acetate 1 % eye drops,suspe nsion 10-26 00:00: 00 04-01 23:59 :00 No [id number] 1 drops 3 TIMES DAILY 1 drops 3 TIMES DAILY (route: ophthalmic (eye)) Med Classific ation: Ophthalmi c Agents ropinirole 0.25 mg tablet 09-28 00:00: 00 04-01 23:59 :00 No [id number] Per instruc tions DIRECTED Per instructio ns DIRECTED (route: oral) Med Classific ation: Central Nervous System Agents venlafaxine ER 225 mg tablet,exte nded release 24 hr 10-26 00:00: 00 04-01 23:59 :00 No [id number] 1 tablet DAILY 1 tablet DAILY (route: oral) Med Classific ation: Central Nervous System Agents Vitamin D3 125 mcg (5,000 unit) tablet 09-28 00:00: 00 04-01 23:59 :00 No [id number] 1 tablet DAILY 1 tablet DAILY (route: oral) Med Classific ation: Electroly te Balance-N utritiona l Products clonazepam 0.5 mg tablet 2023-04 0-11 00:00: 00 04-01 23:59 :00 No [id number] Per instruc tions BEDTIME Per instructio ns BEDTIME (route: oral) Med Classific ation: Central Nervous System Agents acetaminoph en 325 mg tablet 04-30 00:00: 00 06-27 23:59 :00 No [id number] 2 tablet EVERY 4 HOURS 2 tablet EVERY 4 HOURS (route: oral) Med Classific ation: Analgesic , Anti-infl ammatory or Antipyret ic albuterol sulfate HFA 90 mcg/actuati on aerosol inhaler 04-30 00:00: 00 06-27 23:59 :00 No [id number] 2 puff EVERY 6 HOURS 2 puff EVERY 6 HOURS (route: inhalation ) Med Classific ation: Respirato ry Therapy Agents amantadine HCl 100 mg tablet 04-30 00:00: 00 06-27 23:59 :00 No [id number] 1 tablet DAILY 1 tablet DAILY (route: oral) Med Classific ation: Central Nervous System Agents amoxicillin 500 mg capsule 04-30 00:00: 00 06-27 23:59 :00 No [id number] 4 capsule DIRECTED 4 capsule DIRECTED (route: oral) Med Classific ation: Anti-Infe ctive Agents Breo Ellipta 100 mcg-25 mcg/dose powder for inhalation 04-30 00:00: 00 06-27 23:59 :00 No [id number] 1 inhalat ion DAILY 1 inhalation DAILY (route: inhalation ) Med Classific ation: Respirato ry Therapy Agents clonazepam 0.5 mg tablet 04-30 00:00: 00 06-27 23:59 :00 No [id number] 1 tablet BEDTIME 1 tablet BEDTIME (route: oral) Med Classific ation: Central Nervous System Agents docusate sodium 100 mg capsule 04-30 00:00: 00 06-27 23:59 :00 No [id number] 1 capsule 2 TIMES DAILY 1 capsule 2 TIMES DAILY (route: oral) Med Classific ation: Gastroint estinal Therapy Agents Eliquis 5 mg tablet 04-30 00:00: 00 06-27 23:59 :00 No [id number] 1 tablet 2 TIMES DAILY 1 tablet 2 TIMES DAILY (route: oral) Med Classific ation: Hematolog ical Agents finasteride 5 mg tablet 04-30 00:00: 00 06-27 23:59 :00 No [id number] 1 tablet DAILY 1 tablet DAILY (route: oral) Med Classific ation: Genitouri nary Therapy gabapentin 100 mg capsule 04-30 00:00: 00 06-27 23:59 :00 No [id number] 1 capsule DAILY 1 capsule DAILY (route: oral) Med Classific ation: Central Nervous System Agents gabapentin 300 mg capsule - 00:00: 00 06-27 23:59 :00 No [id number] 1 capsule BEDTIME 1 capsule BEDTIME (route: oral) Med Classific ation: Central Nervous System Agents mirtazapine 45 mg tablet - 00:00: 00 06-27 23:59 :00 No [id number] 1 tablet BEDTIME 1 tablet BEDTIME (route: oral) Med Classific ation: Central Nervous System Agents pantoprazol e 40 mg tablet,baltazar yed release - 00:00: 00 06-27 23:59 :00 No [id number] 1 tablet DAILY 1 tablet DAILY (route: oral) Med Classific ation: Gastroint estinal Therapy Agents ropinirole 0.25 mg tablet 04-30 00:00: 00 06-27 23:59 :00 No [id number] 1-4 tablet DIRECTED 1-4 tablet DIRECTED (route: oral) Med Classific ation: Central Nervous System Agents Rytary 36.25 mg-145 mg capsule,ext ended release 04-30 00:00: 00 06-27 23:59 :00 No [id number] 2 capsule 4 TIMES DAILY 2 capsule 4 TIMES DAILY (route: oral) Med Classific ation: Central Nervous System Agents venlafaxine ER 225 mg tablet,exte nded release 24 hr - 00:00: 00 06-27 23:59 :00 No [id number] 1 tablet BEDTIME 1 tablet BEDTIME (route: oral) Med Classific ation: Central Nervous System Agents amantadine HCl 100 mg capsule 3-04 00:00: 00 Yes [id number] 1 capsule DAILY 1 capsule DAILY (route: oral) Med Classific ation: Central Nervous System Agents clonazepam 0.5 mg tablet 3-04 00:00: 00 Yes [id number] 1 tablet BEDTIME 1 tablet BEDTIME (route: oral) Med Classific ation: Central Nervous System Agents Eliquis 5 mg tablet 3-04 00:00: 00 Yes [id number] 1 tablet 2 TIMES DAILY 1 tablet 2 TIMES DAILY (route: oral) Med Classific ation: Hematolog ical Agents finasteride 5 mg tablet 06-29 00:00: 00 Yes [id number] 1 tablet DAILY 1 tablet DAILY (route: oral) Med Classific ation: Genitouri nary Therapy gabapentin 100 mg capsule 06-29 00:00: 00 Yes [id number] 1 capsule DAILY 1 capsule DAILY (route: oral) Med Classific ation: Central Nervous System Agents gabapentin 300 mg capsule 06-29 00:00: 00 Yes [id number] 1 capsule BEDTIME 1 capsule BEDTIME (route: oral) Med Classific ation: Central Nervous System Agents mirtazapine 45 mg tablet 06-29 00:00: 00 Yes [id number] 1 tablet DAILY 1 tablet DAILY (route: oral) Med Classific ation: Central Nervous System Agents pantoprazol e 40 mg tablet,baltazar yed release 06-29 00:00: 00 10-21 23:59 :00 No [id number] 1 tablet DAILY 1 tablet DAILY (route: oral) Med Classific ation: Gastroint estinal Therapy Agents ropinirole 0.25 mg tablet 06-29 00:00: 00 Yes [id number] 2 tablet DAILY 2 tablet DAILY (route: oral) Med Classific ation: Central Nervous System Agents Rytary 36.25 mg-145 mg capsule,ext ended release 06-29 00:00: 00 Yes [id number] 3 capsule 4 TIMES DAILY 3 capsule 4 TIMES DAILY (route: oral) Med Classific ation: Central Nervous System Agents venlafaxine ER 225 mg tablet,exte nded release 24 hr 06-29 00:00: 00 Yes [id number] 1 tablet DAILY 1 tablet DAILY (route: oral) Med Classific ation: Central Nervous System Agents albuterol sulfate HFA 90 mcg/actuati on aerosol inhaler 06-29 00:00: 00 Yes [id number] 2 puff EVERY 6 HOURS 2 puff EVERY 6 HOURS (route: inhalation ) Med Classific ation: Respirato ry Therapy Agents Breo Ellipta 100 mcg-25 mcg/dose powder for inhalation 3-04 00:00: 00 Yes [id number] 1 inhalat ion DAILY 1 inhalation DAILY (route: inhalation ) Med Classific ation: Respirato ry Therapy Agents pantoprazol e 40 mg tablet,baltazar yed release 3- 00:00: 00 10-21 23:59 :00 No [id number] 1 tablet 2 TIMES DAILY 1 tablet 2 TIMES DAILY (route: oral) Med Classific ation: Gastroint estinal Therapy Agents fluconazole 200 mg tablet - 00:00: 00 Yes [id number] 200 mg DAILY 200 mg DAILY (route: oral) Alternate Route: SUBLINGUA L. Med Classific ation: Anti-Infe ctive Agents Carafate 100 mg/mL oral suspension 10-26 00:00: 00 Yes [id number] 10 mL 4 TIMES DAILY 10 mL 4 TIMES DAILY (route: oral) Med Classific ation: Gastroint estinal Therapy Agents Voquezna 20 mg tablet 10-26 00:00: 00 12-03 00:58 :03.3 47 No [id number] 1 tablet 2 TIMES DAILY 1 tablet 2 TIMES DAILY (route: oral) Med Classific ation: Gastroint estinal Therapy Agents Voquezna 20 mg tablet 10-21 00:00: 00 Yes [id number] 1 tablet 2 TIMES DAILY 1 tablet [...] MAINTAIN SITUATIONAL AWARENESS AND WILL NOTIFY CLINICAL CLINICAL QUALITY ANALYST AND PHYSICIAN/PROVIDER WITH ANY CHANGE IN CONDITION. [code = SKILLED NURSE TO PERFORM ENVIRONMENTAL SAFETY RISK ASSESSMENT AND FALL RISK ASSESSMENT AND PROVIDE INSTRUCTION TO IMPLEMENT ENVIRONMENTAL SAFETY AND FALL PREVENTION STRATEGIES THROUGHOUT THE CERTIFICATION PERIOD. SKILLED NURSE WILL MAINTAIN SITUATIONAL AWARENESS AND WILL NOTIFY CLINICAL CLINICAL QUALITY ANALYST AND PHYSICIAN/PROVIDER WITH ANY CHANGE IN CONDITION.] [...] LASIX PATIENT LIVING SITUATION/CAREGIVER STATUS: [facility] SUMMAR[facility] SKILLED NEED: DISEASE [...] End Date/Time Encounter Type Admission Type Attending [facility] Care Department Encounter ID Discharge Date Discharge Status Discharge Condition Discharge Reason Percent Goals Met 2025-02-24 00:00:00 2025-04-24 00:00:00 Outpatient RECERTIFIC ATION DEMETRI SLAUGHTER [facility] [id number] 6.25
--- OUTSIDE RECORDS SUMMARY | 2025-04-23 19:00 | XMS_ITS | Clinical Summary ---
Author Organization Unknown Care Team Providers Care Manager Molecular Name Role Phone DARIAN DANGELO, ANYA Unavailable Unavaila aleisha CHRISTENSEN DIRECTOR OF SEARCH ENGINE OPTIMIZATION/MARINE SERVICE OPERATOR, RENAN Unavailable Unava susie SLAUGHTER RN, DEMETRI Unavailable Unavailable Payers Payer Name Policy Type Policy Number Effective Date Expira tion Date MEDICARE - [facility] - PD [id number] Problems Condition Name Condition Details Condition Category [...] URINARY DEVICE Active 04-28 00:00: 00 [facility] (CURRENT) USE OF ANTICOAGULAN TS Active 04-28 [...] 01-11 00:00: 00 01-18 23:59 :00 No [id number] 1 tablet 2 TIMES DAILY 1 tablet 2 TIMES DAILY (route: oral) Med Classific ation: Anti-Infe ctive Agents lactulose 10 gram/15 mL oral solution 01-11 00:00: 00 04-01 23:59 :00 No [id number] 30 g DAILY 30 g DAILY (route: oral) Med Classific ation: Gastroint estinal Therapy Agents Rytary 36.25 mg-145 mg capsule,ext ended release 13 00:00: 00 04-01 23:59 :00 No [id number] 4 capsule 4 TIMES DAILY 4 capsule 4 TIMES DAILY (route: oral) Med Classific ation: Central Nervous System Agents Breo Ellipta 100 mcg-25 mcg/dose powder for inhalation - 00:00: 00 04-01 23:59 :00 No [id number] 1 inhalat ion ONCE DAILY 1 inhalation ONCE DAILY (route: inhalation ) Med Classific ation: Respirato ry Therapy Agents mirtazapine 45 mg tablet 12-12 00:00: 00 04-01 23:59 :00 No [id number] 1 tablet DAILY 1 tablet DAILY (route: oral) Med Classific ation: Central Nervous System Agents docusate sodium 100 mg capsule 16 00:00: 00 04-01 23:59 :00 No [id number] 1 capsule 2 TIMES DAILY 1 capsule 2 TIMES DAILY (route: oral) Med Classific ation: Gastroint estinal Therapy Agents Eliquis 5 mg tablet 10-26 00:00: 00 04-01 23:59 :00 No [id number] 1 tablet 2 TIMES DAILY 1 tablet 2 TIMES DAILY (route: oral) Med Classific ation: Hematolog ical Agents ferrous sulfate 325 mg (65 mg iron) tablet 10-26 00:00: 00 04-01 23:59 :00 No [id number] 1 tablet DAILY 1 tablet DAILY (route: oral) Med Classific ation: Electroly te Balance-N utritiona l Products finasteride 5 mg tablet 10-26 00:00: 00 04-01 23:59 :00 No [id number] 1 tablet DAILY 1 tablet DAILY (route: oral) Med Classific ation: Genitouri nary Therapy furosemide 40 mg tablet 10-26 00:00: 00 04-01 23:59 :00 No [id number] 1 tablet 2 TIMES DAILY 1 tablet 2 TIMES DAILY (route: oral) Med Classific ation: Cardiovas cular Therapy Agents magnesium 400 mg (as magnesium oxide) tablet 10-26 00:00: 00 04-01 23:59 :00 No [id number] 1 tablet DAILY 1 tablet DAILY (route: oral) Med Classific ation: Electroly te Balance-N utritiona l Products prednisolon e acetate 1 % eye drops,suspe nsion 10-26 00:00: 00 04-01 23:59 :00 No [id number] 1 drops 3 TIMES DAILY 1 drops 3 TIMES DAILY (route: ophthalmic (eye)) Med Classific ation: Ophthalmi c Agents ropinirole 0.25 mg tablet 09-28 00:00: 00 04-01 23:59 :00 No [id number] Per instruc tions DIRECTED Per instructio ns DIRECTED (route: oral) Med Classific ation: Central Nervous System Agents venlafaxine ER 225 mg tablet,exte nded release 24 hr 10-26 00:00: 00 04-01 23:59 :00 No [id number] 1 tablet DAILY 1 tablet DAILY (route: oral) Med Classific ation: Central Nervous System Agents Vitamin D3 125 mcg (5,000 unit) tablet 09-28 00:00: 00 04-01 23:59 :00 No [id number] 1 tablet DAILY 1 tablet DAILY (route: oral) Med Classific ation: Electroly te Balance-N utritiona l Products clonazepam 0.5 mg tablet 2023-04 0-11 00:00: 00 04-01 23:59 :00 No [id number] Per instruc tions BEDTIME Per instructio ns BEDTIME (route: oral) Med Classific ation: Central Nervous System Agents acetaminoph en 325 mg tablet 04-30 00:00: 00 06-27 23:59 :00 No [id number] 2 tablet EVERY 4 HOURS 2 tablet EVERY 4 HOURS (route: oral) Med Classific ation: Analgesic , Anti-infl ammatory or Antipyret ic albuterol sulfate HFA 90 mcg/actuati on aerosol inhaler 04-30 00:00: 00 06-27 23:59 :00 No [id number] 2 puff EVERY 6 HOURS 2 puff EVERY 6 HOURS (route: inhalation ) Med Classific ation: Respirato ry Therapy Agents amantadine HCl 100 mg tablet 04-30 00:00: 00 06-27 23:59 :00 No [id number] 1 tablet DAILY 1 tablet DAILY (route: oral) Med Classific ation: Central Nervous System Agents amoxicillin 500 mg capsule 04-30 00:00: 00 06-27 23:59 :00 No [id number] 4 capsule DIRECTED 4 capsule DIRECTED (route: oral) Med Classific ation: Anti-Infe ctive Agents Breo Ellipta 100 mcg-25 mcg/dose powder for inhalation 04-30 00:00: 00 06-27 23:59 :00 No [id number] 1 inhalat ion DAILY 1 inhalation DAILY (route: inhalation ) Med Classific ation: Respirato ry Therapy Agents clonazepam 0.5 mg tablet 04-30 00:00: 00 06-27 23:59 :00 No [id number] 1 tablet BEDTIME 1 tablet BEDTIME (route: oral) Med Classific ation: Central Nervous System Agents docusate sodium 100 mg capsule 04-30 00:00: 00 06-27 23:59 :00 No [id number] 1 capsule 2 TIMES DAILY 1 capsule 2 TIMES DAILY (route: oral) Med Classific ation: Gastroint estinal Therapy Agents Eliquis 5 mg tablet 04-30 00:00: 00 06-27 23:59 :00 No [id number] 1 tablet 2 TIMES DAILY 1 tablet 2 TIMES DAILY (route: oral) Med Classific ation: Hematolog ical Agents finasteride 5 mg tablet 04-30 00:00: 00 06-27 23:59 :00 No [id number] 1 tablet DAILY 1 tablet DAILY (route: oral) Med Classific ation: Genitouri nary Therapy gabapentin 100 mg capsule 04-30 00:00: 00 06-27 23:59 :00 No [id number] 1 capsule DAILY 1 capsule DAILY (route: oral) Med Classific ation: Central Nervous System Agents gabapentin 300 mg capsule - 00:00: 00 06-27 23:59 :00 No [id number] 1 capsule BEDTIME 1 capsule BEDTIME (route: oral) Med Classific ation: Central Nervous System Agents mirtazapine 45 mg tablet - 00:00: 00 06-27 23:59 :00 No [id number] 1 tablet BEDTIME 1 tablet BEDTIME (route: oral) Med Classific ation: Central Nervous System Agents pantoprazol e 40 mg tablet,baltazar yed release - 00:00: 00 06-27 23:59 :00 No [id number] 1 tablet DAILY 1 tablet DAILY (route: oral) Med Classific ation: Gastroint estinal Therapy Agents ropinirole 0.25 mg tablet 04-30 00:00: 00 06-27 23:59 :00 No [id number] 1-4 tablet DIRECTED 1-4 tablet DIRECTED (route: oral) Med Classific ation: Central Nervous System Agents Rytary 36.25 mg-145 mg capsule,ext ended release 04-30 00:00: 00 06-27 23:59 :00 No [id number] 2 capsule 4 TIMES DAILY 2 capsule 4 TIMES DAILY (route: oral) Med Classific ation: Central Nervous System Agents venlafaxine ER 225 mg tablet,exte nded release 24 hr - 00:00: 00 06-27 23:59 :00 No [id number] 1 tablet BEDTIME 1 tablet BEDTIME (route: oral) Med Classific ation: Central Nervous System Agents amantadine HCl 100 mg capsule 3-04 00:00: 00 Yes [id number] 1 capsule DAILY 1 capsule DAILY (route: oral) Med Classific ation: Central Nervous System Agents clonazepam 0.5 mg tablet 3-04 00:00: 00 Yes [id number] 1 tablet BEDTIME 1 tablet BEDTIME (route: oral) Med Classific ation: Central Nervous System Agents Eliquis 5 mg tablet 3-04 00:00: 00 Yes [id number] 1 tablet 2 TIMES DAILY 1 tablet 2 TIMES DAILY (route: oral) Med Classific ation: Hematolog ical Agents finasteride 5 mg tablet 06-29 00:00: 00 Yes [id number] 1 tablet DAILY 1 tablet DAILY (route: oral) Med Classific ation: Genitouri nary Therapy gabapentin 100 mg capsule 06-29 00:00: 00 Yes [id number] 1 capsule DAILY 1 capsule DAILY (route: oral) Med Classific ation: Central Nervous System Agents gabapentin 300 mg capsule 06-29 00:00: 00 Yes [id number] 1 capsule BEDTIME 1 capsule BEDTIME (route: oral) Med Classific ation: Central Nervous System Agents mirtazapine 45 mg tablet 06-29 00:00: 00 Yes [id number] 1 tablet DAILY 1 tablet DAILY (route: oral) Med Classific ation: Central Nervous System Agents pantoprazol e 40 mg tablet,baltazar yed release 06-29 00:00: 00 10-21 23:59 :00 No [id number] 1 tablet DAILY 1 tablet DAILY (route: oral) Med Classific ation: Gastroint estinal Therapy Agents ropinirole 0.25 mg tablet 06-29 00:00: 00 Yes [id number] 2 tablet DAILY 2 tablet DAILY (route: oral) Med Classific ation: Central Nervous System Agents Rytary 36.25 mg-145 mg capsule,ext ended release 06-29 00:00: 00 Yes [id number] 3 capsule 4 TIMES DAILY 3 capsule 4 TIMES DAILY (route: oral) Med Classific ation: Central Nervous System Agents venlafaxine ER 225 mg tablet,exte nded release 24 hr 06-29 00:00: 00 Yes [id number] 1 tablet DAILY 1 tablet DAILY (route: oral) Med Classific ation: Central Nervous System Agents albuterol sulfate HFA 90 mcg/actuati on aerosol inhaler 06-29 00:00: 00 Yes [id number] 2 puff EVERY 6 HOURS 2 puff EVERY 6 HOURS (route: inhalation ) Med Classific ation: Respirato ry Therapy Agents Breo Ellipta 100 mcg-25 mcg/dose powder for inhalation 3-04 00:00: 00 Yes [id number] 1 inhalat ion DAILY 1 inhalation DAILY (route: inhalation ) Med Classific ation: Respirato ry Therapy Agents pantoprazol e 40 mg tablet,baltazar yed release 3- 00:00: 00 10-21 23:59 :00 No [id number] 1 tablet 2 TIMES DAILY 1 tablet 2 TIMES DAILY (route: oral) Med Classific ation: Gastroint estinal Therapy Agents fluconazole 200 mg tablet - 00:00: 00 Yes [id number] 200 mg DAILY 200 mg DAILY (route: oral) Alternate Route: SUBLINGUA L. Med Classific ation: Anti-Infe ctive Agents Carafate 100 mg/mL oral suspension 10-26 00:00: 00 Yes [id number] 10 mL 4 TIMES DAILY 10 mL 4 TIMES DAILY (route: oral) Med Classific ation: Gastroint estinal Therapy Agents Voquezna 20 mg tablet 10-26 00:00: 00 12-03 00:58 :03.3 47 No [id number] 1 tablet 2 TIMES DAILY 1 tablet 2 TIMES DAILY (route: oral) Med Classific ation: Gastroint estinal Therapy Agents Voquezna 20 mg tablet 10-21 00:00: 00 Yes [id number] 1 tablet 2 TIMES DAILY 1 tablet [...] MAINTAIN SITUATIONAL AWARENESS AND WILL NOTIFY CLINICAL HIGH SCHOOL MUSIC DIRECTOR AND PHYSICIAN/PROVIDER WITH ANY CHANGE IN CONDITION. [code = SKILLED NURSE TO PERFORM ENVIRONMENTAL SAFETY RISK ASSESSMENT AND FALL RISK ASSESSMENT AND PROVIDE INSTRUCTION TO IMPLEMENT ENVIRONMENTAL SAFETY AND FALL PREVENTION STRATEGIES THROUGHOUT THE CERTIFICATION PERIOD. SKILLED NURSE WILL MAINTAIN SITUATIONAL AWARENESS AND WILL NOTIFY CLINICAL HIGH SCHOOL MUSIC DIRECTOR AND PHYSICIAN/PROVIDER WITH ANY CHANGE IN [...] LIVING SITUATION/CAREGIVER STATUS: LIVES IN [facility] WITH SPOUSE SUMMARIZE SKILLED NEED: DISEASE MANAGEMENT [...] Outpatient RECERTIFIC ATION DEMETRI SLAUGHTER [facility] [id number] 6.25
--- OUTSIDE RECORDS SUMMARY | 2025-04-23 19:00 | XMS_ITS | Clinical Summary ---
Author Organization Unknown Care Team Providers Care Toe Lining Closer Name Role Phone DARIAN DANGELO, ANYA Unavailable Unavaila aleisha CHRISTENSEN RADIAL ARM SAW OPERATOR/SOCIAL HUMAN SERVICES ASSISTANTS, RENAN Unavailable Unava susie SLAUGHTER RN, DEMETRI Unavailable Unavailable Payers Payer Name Policy Type Policy Number Effective Date Expira tion Date MEDICARE - [facility] - PD [id number] Problems Condition Name Condition Details Condition Category [...] 01-11 00:00: 00 01-18 23:59 :00 No [id number] 1 tablet 2 TIMES DAILY 1 tablet 2 TIMES DAILY (route: oral) Med Classific ation: Anti-Infe ctive Agents lactulose 10 gram/15 mL oral solution 01-11 00:00: 00 04-01 23:59 :00 No [id number] 30 g DAILY 30 g DAILY (route: oral) Med Classific ation: Gastroint estinal Therapy Agents Rytary 36.25 mg-145 mg capsule,ext ended release 13 00:00: 00 04-01 23:59 :00 No [id number] 4 capsule 4 TIMES DAILY 4 capsule 4 TIMES DAILY (route: oral) Med Classific ation: Central Nervous System Agents Breo Ellipta 100 mcg-25 mcg/dose powder for inhalation - 00:00: 00 04-01 23:59 :00 No [id number] 1 inhalat ion ONCE DAILY 1 inhalation ONCE DAILY (route: inhalation ) Med Classific ation: Respirato ry Therapy Agents mirtazapine 45 mg tablet 12-12 00:00: 00 04-01 23:59 :00 No [id number] 1 tablet DAILY 1 tablet DAILY (route: oral) Med Classific ation: Central Nervous System Agents docusate sodium 100 mg capsule 16 00:00: 00 04-01 23:59 :00 No [id number] 1 capsule 2 TIMES DAILY 1 capsule 2 TIMES DAILY (route: oral) Med Classific ation: Gastroint estinal Therapy Agents Eliquis 5 mg tablet 10-26 00:00: 00 04-01 23:59 :00 No [id number] 1 tablet 2 TIMES DAILY 1 tablet 2 TIMES DAILY (route: oral) Med Classific ation: Hematolog ical Agents ferrous sulfate 325 mg (65 mg iron) tablet 10-26 00:00: 00 04-01 23:59 :00 No [id number] 1 tablet DAILY 1 tablet DAILY (route: oral) Med Classific ation: Electroly te Balance-N utritiona l Products finasteride 5 mg tablet 10-26 00:00: 00 04-01 23:59 :00 No [id number] 1 tablet DAILY 1 tablet DAILY (route: oral) Med Classific ation: Genitouri nary Therapy furosemide 40 mg tablet 10-26 00:00: 00 04-01 23:59 :00 No [id number] 1 tablet 2 TIMES DAILY 1 tablet 2 TIMES DAILY (route: oral) Med Classific ation: Cardiovas cular Therapy Agents magnesium 400 mg (as magnesium oxide) tablet 10-26 00:00: 00 04-01 23:59 :00 No [id number] 1 tablet DAILY 1 tablet DAILY (route: oral) Med Classific ation: Electroly te Balance-N utritiona l Products prednisolon e acetate 1 % eye drops,suspe nsion 10-26 00:00: 00 04-01 23:59 :00 No [id number] 1 drops 3 TIMES DAILY 1 drops 3 TIMES DAILY (route: ophthalmic (eye)) Med Classific ation: Ophthalmi c Agents ropinirole 0.25 mg tablet 09-28 00:00: 00 04-01 23:59 :00 No [id number] Per instruc tions DIRECTED Per instructio ns DIRECTED (route: oral) Med Classific ation: Central Nervous System Agents venlafaxine ER 225 mg tablet,exte nded release 24 hr 10-26 00:00: 00 04-01 23:59 :00 No [id number] 1 tablet DAILY 1 tablet DAILY (route: oral) Med Classific ation: Central Nervous System Agents Vitamin D3 125 mcg (5,000 unit) tablet 09-28 00:00: 00 04-01 23:59 :00 No [id number] 1 tablet DAILY 1 tablet DAILY (route: oral) Med Classific ation: Electroly te Balance-N utritiona l Products clonazepam 0.5 mg tablet 2023-04 0-11 00:00: 00 04-01 23:59 :00 No [id number] Per instruc tions BEDTIME Per instructio ns BEDTIME (route: oral) Med Classific ation: Central Nervous System Agents acetaminoph en 325 mg tablet 04-30 00:00: 00 06-27 23:59 :00 No [id number] 2 tablet EVERY 4 HOURS 2 tablet EVERY 4 HOURS (route: oral) Med Classific ation: Analgesic , Anti-infl ammatory or Antipyret ic albuterol sulfate HFA 90 mcg/actuati on aerosol inhaler 04-30 00:00: 00 06-27 23:59 :00 No [id number] 2 puff EVERY 6 HOURS 2 puff EVERY 6 HOURS (route: inhalation ) Med Classific ation: Respirato ry Therapy Agents amantadine HCl 100 mg tablet 04-30 00:00: 00 06-27 23:59 :00 No [id number] 1 tablet DAILY 1 tablet DAILY (route: oral) Med Classific ation: Central Nervous System Agents amoxicillin 500 mg capsule 04-30 00:00: 00 06-27 23:59 :00 No [id number] 4 capsule DIRECTED 4 capsule DIRECTED (route: oral) Med Classific ation: Anti-Infe ctive Agents Breo Ellipta 100 mcg-25 mcg/dose powder for inhalation 04-30 00:00: 00 06-27 23:59 :00 No [id number] 1 inhalat ion DAILY 1 inhalation DAILY (route: inhalation ) Med Classific ation: Respirato ry Therapy Agents clonazepam 0.5 mg tablet 04-30 00:00: 00 06-27 23:59 :00 No [id number] 1 tablet BEDTIME 1 tablet BEDTIME (route: oral) Med Classific ation: Central Nervous System Agents docusate sodium 100 mg capsule 04-30 00:00: 00 06-27 23:59 :00 No [id number] 1 capsule 2 TIMES DAILY 1 capsule 2 TIMES DAILY (route: oral) Med Classific ation: Gastroint estinal Therapy Agents Eliquis 5 mg tablet 04-30 00:00: 00 06-27 23:59 :00 No [id number] 1 tablet 2 TIMES DAILY 1 tablet 2 TIMES DAILY (route: oral) Med Classific ation: Hematolog ical Agents finasteride 5 mg tablet 04-30 00:00: 00 06-27 23:59 :00 No [id number] 1 tablet DAILY 1 tablet DAILY (route: oral) Med Classific ation: Genitouri nary Therapy gabapentin 100 mg capsule 04-30 00:00: 00 06-27 23:59 :00 No [id number] 1 capsule DAILY 1 capsule DAILY (route: oral) Med Classific ation: Central Nervous System Agents gabapentin 300 mg capsule - 00:00: 00 06-27 23:59 :00 No [id number] 1 capsule BEDTIME 1 capsule BEDTIME (route: oral) Med Classific ation: Central Nervous System Agents mirtazapine 45 mg tablet - 00:00: 00 06-27 23:59 :00 No [id number] 1 tablet BEDTIME 1 tablet BEDTIME (route: oral) Med Classific ation: Central Nervous System Agents pantoprazol e 40 mg tablet,baltazar yed release - 00:00: 00 06-27 23:59 :00 No [id number] 1 tablet DAILY 1 tablet DAILY (route: oral) Med Classific ation: Gastroint estinal Therapy Agents ropinirole 0.25 mg tablet 04-30 00:00: 00 06-27 23:59 :00 No [id number] 1-4 tablet DIRECTED 1-4 tablet DIRECTED (route: oral) Med Classific ation: Central Nervous System Agents Rytary 36.25 mg-145 mg capsule,ext ended release 04-30 00:00: 00 06-27 23:59 :00 No [id number] 2 capsule 4 TIMES DAILY 2 capsule 4 TIMES DAILY (route: oral) Med Classific ation: Central Nervous System Agents venlafaxine ER 225 mg tablet,exte nded release 24 hr - 00:00: 00 06-27 23:59 :00 No [id number] 1 tablet BEDTIME 1 tablet BEDTIME (route: oral) Med Classific ation: Central Nervous System Agents amantadine HCl 100 mg capsule 3-04 00:00: 00 Yes [id number] 1 capsule DAILY 1 capsule DAILY (route: oral) Med Classific ation: Central Nervous System Agents clonazepam 0.5 mg tablet 3-04 00:00: 00 Yes [id number] 1 tablet BEDTIME 1 tablet BEDTIME (route: oral) Med Classific ation: Central Nervous System Agents Eliquis 5 mg tablet 3-04 00:00: 00 Yes [id number] 1 tablet 2 TIMES DAILY 1 tablet 2 TIMES DAILY (route: oral) Med Classific ation: Hematolog ical Agents finasteride 5 mg tablet 06-29 00:00: 00 Yes [id number] 1 tablet DAILY 1 tablet DAILY (route: oral) Med Classific ation: Genitouri nary Therapy gabapentin 100 mg capsule 06-29 00:00: 00 Yes [id number] 1 capsule DAILY 1 capsule DAILY (route: oral) Med Classific ation: Central Nervous System Agents gabapentin 300 mg capsule 06-29 00:00: 00 Yes [id number] 1 capsule BEDTIME 1 capsule BEDTIME (route: oral) Med Classific ation: Central Nervous System Agents mirtazapine 45 mg tablet 06-29 00:00: 00 Yes [id number] 1 tablet DAILY 1 tablet DAILY (route: oral) Med Classific ation: Central Nervous System Agents pantoprazol e 40 mg tablet,baltazar yed release 06-29 00:00: 00 10-21 23:59 :00 No [id number] 1 tablet DAILY 1 tablet DAILY (route: oral) Med Classific ation: Gastroint estinal Therapy Agents ropinirole 0.25 mg tablet 06-29 00:00: 00 Yes [id number] 2 tablet DAILY 2 tablet DAILY (route: oral) Med Classific ation: Central Nervous System Agents Rytary 36.25 mg-145 mg capsule,ext ended release 06-29 00:00: 00 Yes [id number] 3 capsule 4 TIMES DAILY 3 capsule 4 TIMES DAILY (route: oral) Med Classific ation: Central Nervous System Agents venlafaxine ER 225 mg tablet,exte nded release 24 hr 06-29 00:00: 00 Yes [id number] 1 tablet DAILY 1 tablet DAILY (route: oral) Med Classific ation: Central Nervous System Agents albuterol sulfate HFA 90 mcg/actuati on aerosol inhaler 06-29 00:00: 00 Yes [id number] 2 puff EVERY 6 HOURS 2 puff EVERY 6 HOURS (route: inhalation ) Med Classific ation: Respirato ry Therapy Agents Breo Ellipta 100 mcg-25 mcg/dose powder for inhalation 3-04 00:00: 00 Yes [id number] 1 inhalat ion DAILY 1 inhalation DAILY (route: inhalation ) Med Classific ation: Respirato ry Therapy Agents pantoprazol e 40 mg tablet,baltazar yed release 3- 00:00: 00 10-21 23:59 :00 No [id number] 1 tablet 2 TIMES DAILY 1 tablet 2 TIMES DAILY (route: oral) Med Classific ation: Gastroint estinal Therapy Agents fluconazole 200 mg tablet - 00:00: 00 Yes [id number] 200 mg DAILY 200 mg DAILY (route: oral) Alternate Route: SUBLINGUA L. Med Classific ation: Anti-Infe ctive Agents Carafate 100 mg/mL oral suspension 10-26 00:00: 00 Yes [id number] 10 mL 4 TIMES DAILY 10 mL 4 TIMES DAILY (route: oral) Med Classific ation: Gastroint estinal Therapy Agents Voquezna 20 mg tablet 10-26 00:00: 00 12-03 00:58 :03.3 47 No [id number] 1 tablet 2 TIMES DAILY 1 tablet 2 TIMES DAILY (route: oral) Med Classific ation: Gastroint estinal Therapy Agents Voquezna 20 mg tablet 10-21 00:00: 00 Yes [id number] 1 tablet 2 TIMES DAILY 1 tablet [...] MAINTAIN SITUATIONAL AWARENESS AND WILL NOTIFY CLINICAL SAMPLE DYE MIXER AND PHYSICIAN/PROVIDER WITH ANY CHANGE IN CONDITION. [code = SKILLED NURSE TO PERFORM ENVIRONMENTAL SAFETY RISK ASSESSMENT AND FALL RISK ASSESSMENT AND PROVIDE INSTRUCTION TO IMPLEMENT ENVIRONMENTAL SAFETY AND FALL PREVENTION STRATEGIES THROUGHOUT THE CERTIFICATION PERIOD. SKILLED NURSE WILL MAINTAIN SITUATIONAL AWARENESS AND WILL NOTIFY CLINICAL SAMPLE DYE MIXER AND PHYSICIAN/PROVIDER WITH ANY CHANGE IN [...] LASIX PATIENT LIVING SITUATION/CAREGIVER STATUS: LIVES IN [facility] WITH SPOUSE SUMMARIZE SKILLED NEED: DISEASE [...] ATION DEMETRI SLAUGHTER [facility] [id number] 6.25
--- OUTSIDE RECORDS SUMMARY | 2025-04-23 19:00 | XMS_ITS | Clinical Summary ---
Author Organization Unknown Care Team Providers Care Social Scientist Name Role Phone DARIAN DANGELO, ANYA Unavailable Unavaila aleisha CHRISTENSEN MANAGER DATA WAREHOUSING/PERFORMANCE IMPROVEMENT MANAGER, RENAN Unavailable Unava susie SLAUGHTER RN, DEMETRI Unavailable Unavailable Payers Payer Name Policy Type Policy Number Effective Date Expira tion Date MEDICARE - [facility] CT - PD [id number] Problems Condition Name Condition Details Condition Category [...] 01-11 00:00: 00 01-18 23:59 :00 No [id number] 1 tablet 2 TIMES DAILY 1 tablet 2 TIMES DAILY (route: oral) Med Classific ation: Anti-Infe ctive Agents lactulose 10 gram/15 mL oral solution 01-11 00:00: 00 04-01 23:59 :00 No [id number] 30 g DAILY 30 g DAILY (route: oral) Med Classific ation: Gastroint estinal Therapy Agents Rytary 36.25 mg-145 mg capsule,ext ended release 13 00:00: 00 04-01 23:59 :00 No [id number] 4 capsule 4 TIMES DAILY 4 capsule 4 TIMES DAILY (route: oral) Med Classific ation: Central Nervous System Agents Breo Ellipta 100 mcg-25 mcg/dose powder for inhalation - 00:00: 00 04-01 23:59 :00 No [id number] 1 inhalat ion ONCE DAILY 1 inhalation ONCE DAILY (route: inhalation ) Med Classific ation: Respirato ry Therapy Agents mirtazapine 45 mg tablet 12-12 00:00: 00 04-01 23:59 :00 No [id number] 1 tablet DAILY 1 tablet DAILY (route: oral) Med Classific ation: Central Nervous System Agents docusate sodium 100 mg capsule 16 00:00: 00 04-01 23:59 :00 No [id number] 1 capsule 2 TIMES DAILY 1 capsule 2 TIMES DAILY (route: oral) Med Classific ation: Gastroint estinal Therapy Agents Eliquis 5 mg tablet 10-26 00:00: 00 04-01 23:59 :00 No [id number] 1 tablet 2 TIMES DAILY 1 tablet 2 TIMES DAILY (route: oral) Med Classific ation: Hematolog ical Agents ferrous sulfate 325 mg (65 mg iron) tablet 10-26 00:00: 00 04-01 23:59 :00 No [id number] 1 tablet DAILY 1 tablet DAILY (route: oral) Med Classific ation: Electroly te Balance-N utritiona l Products finasteride 5 mg tablet 10-26 00:00: 00 04-01 23:59 :00 No [id number] 1 tablet DAILY 1 tablet DAILY (route: oral) Med Classific ation: Genitouri nary Therapy furosemide 40 mg tablet 10-26 00:00: 00 04-01 23:59 :00 No [id number] 1 tablet 2 TIMES DAILY 1 tablet 2 TIMES DAILY (route: oral) Med Classific ation: Cardiovas cular Therapy Agents magnesium 400 mg (as magnesium oxide) tablet 10-26 00:00: 00 04-01 23:59 :00 No [id number] 1 tablet DAILY 1 tablet DAILY (route: oral) Med Classific ation: Electroly te Balance-N utritiona l Products prednisolon e acetate 1 % eye drops,suspe nsion 10-26 00:00: 00 04-01 23:59 :00 No [id number] 1 drops 3 TIMES DAILY 1 drops 3 TIMES DAILY (route: ophthalmic (eye)) Med Classific ation: Ophthalmi c Agents ropinirole 0.25 mg tablet 09-28 00:00: 00 04-01 23:59 :00 No [id number] Per instruc tions DIRECTED Per instructio ns DIRECTED (route: oral) Med Classific ation: Central Nervous System Agents venlafaxine ER 225 mg tablet,exte nded release 24 hr 10-26 00:00: 00 04-01 23:59 :00 No [id number] 1 tablet DAILY 1 tablet DAILY (route: oral) Med Classific ation: Central Nervous System Agents Vitamin D3 125 mcg (5,000 unit) tablet 09-28 00:00: 00 04-01 23:59 :00 No [id number] 1 tablet DAILY 1 tablet DAILY (route: oral) Med Classific ation: Electroly te Balance-N utritiona l Products clonazepam 0.5 mg tablet 2023-04 0-11 00:00: 00 04-01 23:59 :00 No [id number] Per instruc tions BEDTIME Per instructio ns BEDTIME (route: oral) Med Classific ation: Central Nervous System Agents acetaminoph en 325 mg tablet 04-30 00:00: 00 06-27 23:59 :00 No [id number] 2 tablet EVERY 4 HOURS 2 tablet EVERY 4 HOURS (route: oral) Med Classific ation: Analgesic , Anti-infl ammatory or Antipyret ic albuterol sulfate HFA 90 mcg/actuati on aerosol inhaler 04-30 00:00: 00 06-27 23:59 :00 No [id number] 2 puff EVERY 6 HOURS 2 puff EVERY 6 HOURS (route: inhalation ) Med Classific ation: Respirato ry Therapy Agents amantadine HCl 100 mg tablet 04-30 00:00: 00 06-27 23:59 :00 No [id number] 1 tablet DAILY 1 tablet DAILY (route: oral) Med Classific ation: Central Nervous System Agents amoxicillin 500 mg capsule 04-30 00:00: 00 06-27 23:59 :00 No [id number] 4 capsule DIRECTED 4 capsule DIRECTED (route: oral) Med Classific ation: Anti-Infe ctive Agents Breo Ellipta 100 mcg-25 mcg/dose powder for inhalation 04-30 00:00: 00 06-27 23:59 :00 No [id number] 1 inhalat ion DAILY 1 inhalation DAILY (route: inhalation ) Med Classific ation: Respirato ry Therapy Agents clonazepam 0.5 mg tablet 04-30 00:00: 00 06-27 23:59 :00 No [id number] 1 tablet BEDTIME 1 tablet BEDTIME (route: oral) Med Classific ation: Central Nervous System Agents docusate sodium 100 mg capsule 04-30 00:00: 00 06-27 23:59 :00 No [id number] 1 capsule 2 TIMES DAILY 1 capsule 2 TIMES DAILY (route: oral) Med Classific ation: Gastroint estinal Therapy Agents Eliquis 5 mg tablet 04-30 00:00: 00 06-27 23:59 :00 No [id number] 1 tablet 2 TIMES DAILY 1 tablet 2 TIMES DAILY (route: oral) Med Classific ation: Hematolog ical Agents finasteride 5 mg tablet 04-30 00:00: 00 06-27 23:59 :00 No [id number] 1 tablet DAILY 1 tablet DAILY (route: oral) Med Classific ation: Genitouri nary Therapy gabapentin 100 mg capsule 04-30 00:00: 00 06-27 23:59 :00 No [id number] 1 capsule DAILY 1 capsule DAILY (route: oral) Med Classific ation: Central Nervous System Agents gabapentin 300 mg capsule - 00:00: 00 06-27 23:59 :00 No [id number] 1 capsule BEDTIME 1 capsule BEDTIME (route: oral) Med Classific ation: Central Nervous System Agents mirtazapine 45 mg tablet - 00:00: 00 06-27 23:59 :00 No [id number] 1 tablet BEDTIME 1 tablet BEDTIME (route: oral) Med Classific ation: Central Nervous System Agents pantoprazol e 40 mg tablet,baltazar yed release - 00:00: 00 06-27 23:59 :00 No [id number] 1 tablet DAILY 1 tablet DAILY (route: oral) Med Classific ation: Gastroint estinal Therapy Agents ropinirole 0.25 mg tablet 04-30 00:00: 00 06-27 23:59 :00 No [id number] 1-4 tablet DIRECTED 1-4 tablet DIRECTED (route: oral) Med Classific ation: Central Nervous System Agents Rytary 36.25 mg-145 mg capsule,ext ended release 04-30 00:00: 00 06-27 23:59 :00 No [id number] 2 capsule 4 TIMES DAILY 2 capsule 4 TIMES DAILY (route: oral) Med Classific ation: Central Nervous System Agents venlafaxine ER 225 mg tablet,exte nded release 24 hr - 00:00: 00 06-27 23:59 :00 No [id number] 1 tablet BEDTIME 1 tablet BEDTIME (route: oral) Med Classific ation: Central Nervous System Agents amantadine HCl 100 mg capsule 3-04 00:00: 00 Yes [id number] 1 capsule DAILY 1 capsule DAILY (route: oral) Med Classific ation: Central Nervous System Agents clonazepam 0.5 mg tablet 3-04 00:00: 00 Yes [id number] 1 tablet BEDTIME 1 tablet BEDTIME (route: oral) Med Classific ation: Central Nervous System Agents Eliquis 5 mg tablet 3-04 00:00: 00 Yes [id number] 1 tablet 2 TIMES DAILY 1 tablet 2 TIMES DAILY (route: oral) Med Classific ation: Hematolog ical Agents finasteride 5 mg tablet 06-29 00:00: 00 Yes [id number] 1 tablet DAILY 1 tablet DAILY (route: oral) Med Classific ation: Genitouri nary Therapy gabapentin 100 mg capsule 06-29 00:00: 00 Yes [id number] 1 capsule DAILY 1 capsule DAILY (route: oral) Med Classific ation: Central Nervous System Agents gabapentin 300 mg capsule 06-29 00:00: 00 Yes [id number] 1 capsule BEDTIME 1 capsule BEDTIME (route: oral) Med Classific ation: Central Nervous System Agents mirtazapine 45 mg tablet 06-29 00:00: 00 Yes [id number] 1 tablet DAILY 1 tablet DAILY (route: oral) Med Classific ation: Central Nervous System Agents pantoprazol e 40 mg tablet,baltazar yed release 06-29 00:00: 00 10-21 23:59 :00 No [id number] 1 tablet DAILY 1 tablet DAILY (route: oral) Med Classific ation: Gastroint estinal Therapy Agents ropinirole 0.25 mg tablet 06-29 00:00: 00 Yes [id number] 2 tablet DAILY 2 tablet DAILY (route: oral) Med Classific ation: Central Nervous System Agents Rytary 36.25 mg-145 mg capsule,ext ended release 06-29 00:00: 00 Yes [id number] 3 capsule 4 TIMES DAILY 3 capsule 4 TIMES DAILY (route: oral) Med Classific ation: Central Nervous System Agents venlafaxine ER 225 mg tablet,exte nded release 24 hr 06-29 00:00: 00 Yes [id number] 1 tablet DAILY 1 tablet DAILY (route: oral) Med Classific ation: Central Nervous System Agents albuterol sulfate HFA 90 mcg/actuati on aerosol inhaler 06-29 00:00: 00 Yes [id number] 2 puff EVERY 6 HOURS 2 puff EVERY 6 HOURS (route: inhalation ) Med Classific ation: Respirato ry Therapy Agents Breo Ellipta 100 mcg-25 mcg/dose powder for inhalation 3-04 00:00: 00 Yes [id number] 1 inhalat ion DAILY 1 inhalation DAILY (route: inhalation ) Med Classific ation: Respirato ry Therapy Agents pantoprazol e 40 mg tablet,baltazar yed release 3- 00:00: 00 10-21 23:59 :00 No [id number] 1 tablet 2 TIMES DAILY 1 tablet 2 TIMES DAILY (route: oral) Med Classific ation: Gastroint estinal Therapy Agents fluconazole 200 mg tablet - 00:00: 00 Yes [id number] 200 mg DAILY 200 mg DAILY (route: oral) Alternate Route: SUBLINGUA L. Med Classific ation: Anti-Infe ctive Agents Carafate 100 mg/mL oral suspension 10-26 00:00: 00 Yes [id number] 10 mL 4 TIMES DAILY 10 mL 4 TIMES DAILY (route: oral) Med Classific ation: Gastroint estinal Therapy Agents Voquezna 20 mg tablet 10-26 00:00: 00 12-03 00:58 :03.3 47 No [id number] 1 tablet 2 TIMES DAILY 1 tablet 2 TIMES DAILY (route: oral) Med Classific ation: Gastroint estinal Therapy Agents Voquezna 20 mg tablet 10-21 00:00: 00 Yes [id number] 1 tablet 2 TIMES DAILY 1 tablet [...] BLOCKAGE/LEAKAGE, HEAVY SEDIMENT. 1 - 3 PRN RESIDENTIAL VISITS FOR CATHETER CHANGE(S) AND/OR TROUBLESHOOTING. [code = SKILLED NURSE TO INSTRUCT PATIENT/CAREGIVER AND PERFORM CARE AND MANAGEMENT OF INDWELLING URINARY CATHETER. [place] CATHETER INSERTION WITH 18 FR CATHETER WITH 10 ML BALLOON VIA STERILE TECHNIQUE, CHANGE Q 4 WEEKS AND PRN FOR LEAKING OR MALFUNCTIONING CATHETER. IRRIGATE URINARY CATHETER WITH 30-60CC NORMAL SALINE PRN BLOCKAGE/LEAKAGE, HEAVY SEDIMENT. 1 - 3 PRN RESIDENTIAL VISITS FOR CATHETER CHANGE(S) AND/OR TROUBLESHOOTING.] Future [...] MAINTAIN SITUATIONAL AWARENESS AND WILL NOTIFY CLINICAL APPLICATION SECURITY ENGINEER AND PHYSICIAN/PROVIDER WITH ANY CHANGE IN CONDITION. [code = SKILLED NURSE TO PERFORM ENVIRONMENTAL SAFETY RISK ASSESSMENT AND FALL RISK ASSESSMENT AND PROVIDE INSTRUCTION TO IMPLEMENT ENVIRONMENTAL SAFETY AND FALL PREVENTION STRATEGIES THROUGHOUT THE CERTIFICATION PERIOD. SKILLED NURSE WILL MAINTAIN SITUATIONAL AWARENESS AND WILL NOTIFY CLINICAL APPLICATION SECURITY ENGINEER AND PHYSICIAN/PROVIDER WITH ANY CHANGE IN [...] LASIX PATIENT LIVING SITUATION/CAREGIVER STATUS: [facility] SUM[facility] SKILLED NEED: [...] CARE WILL BE ESTABLISHED THAT MEETS PATIENT'S RESIDENTIAL NEEDS AND INCLUDES PATIENT GOAL FOR HOME [...] 2025-04-24 00:00:00 Outpatient RECERTIFIC ATION DEMETRI SLAUGHTER [facility] [id number] 6.25
--- OUTSIDE RECORDS SUMMARY | 2025-04-23 19:00 | XMS_ITS | Clinical Summary ---
Author Organization Unknown Care Team Providers Care Director Funds Development Name Role Phone DARIAN DANGELO, ANYA Unavailable Unavaila aleisha CHRISTENSEN DEBRANDER/HOT TOP LINER, RENAN Unavailable Unava susie SLAUGHTER RN, DEMETRI Unavailable Unavailable Payers Payer Name Policy Type Policy Number Effective Date Expira tion Date MEDICARE - [facility] - PD [id number] Problems Condition Name Condition Details Condition Category [...] OF URINARY DEVICE Active 04-28 00:00: 00 LONGTERM (CURRENT) USE OF ANTICOAGULAN TS Active 04-28 [...] 01-11 00:00: 00 01-18 23:59 :00 No [id number] 1 tablet 2 TIMES DAILY 1 tablet 2 TIMES DAILY (route: oral) Med Classific ation: Anti-Infe ctive Agents lactulose 10 gram/15 mL oral solution 01-11 00:00: 00 04-01 23:59 :00 No [id number] 30 g DAILY 30 g DAILY (route: oral) Med Classific ation: Gastroint estinal Therapy Agents Rytary 36.25 mg-145 mg capsule,ext ended release 13 00:00: 00 04-01 23:59 :00 No [id number] 4 capsule 4 TIMES DAILY 4 capsule 4 TIMES DAILY (route: oral) Med Classific ation: Central Nervous System Agents Breo Ellipta 100 mcg-25 mcg/dose powder for inhalation - 00:00: 00 04-01 23:59 :00 No [id number] 1 inhalat ion ONCE DAILY 1 inhalation ONCE DAILY (route: inhalation ) Med Classific ation: Respirato ry Therapy Agents mirtazapine 45 mg tablet 12-12 00:00: 00 04-01 23:59 :00 No [id number] 1 tablet DAILY 1 tablet DAILY (route: oral) Med Classific ation: Central Nervous System Agents docusate sodium 100 mg capsule 16 00:00: 00 04-01 23:59 :00 No [id number] 1 capsule 2 TIMES DAILY 1 capsule 2 TIMES DAILY (route: oral) Med Classific ation: Gastroint estinal Therapy Agents Eliquis 5 mg tablet 10-26 00:00: 00 04-01 23:59 :00 No [id number] 1 tablet 2 TIMES DAILY 1 tablet 2 TIMES DAILY (route: oral) Med Classific ation: Hematolog ical Agents ferrous sulfate 325 mg (65 mg iron) tablet 10-26 00:00: 00 04-01 23:59 :00 No [id number] 1 tablet DAILY 1 tablet DAILY (route: oral) Med Classific ation: Electroly te Balance-N utritiona l Products finasteride 5 mg tablet 10-26 00:00: 00 04-01 23:59 :00 No [id number] 1 tablet DAILY 1 tablet DAILY (route: oral) Med Classific ation: Genitouri nary Therapy furosemide 40 mg tablet 10-26 00:00: 00 04-01 23:59 :00 No [id number] 1 tablet 2 TIMES DAILY 1 tablet 2 TIMES DAILY (route: oral) Med Classific ation: Cardiovas cular Therapy Agents magnesium 400 mg (as magnesium oxide) tablet 10-26 00:00: 00 04-01 23:59 :00 No [id number] 1 tablet DAILY 1 tablet DAILY (route: oral) Med Classific ation: Electroly te Balance-N utritiona l Products prednisolon e acetate 1 % eye drops,suspe nsion 10-26 00:00: 00 04-01 23:59 :00 No [id number] 1 drops 3 TIMES DAILY 1 drops 3 TIMES DAILY (route: ophthalmic (eye)) Med Classific ation: Ophthalmi c Agents ropinirole 0.25 mg tablet 09-28 00:00: 00 04-01 23:59 :00 No [id number] Per instruc tions DIRECTED Per instructio ns DIRECTED (route: oral) Med Classific ation: Central Nervous System Agents venlafaxine ER 225 mg tablet,exte nded release 24 hr 10-26 00:00: 00 04-01 23:59 :00 No [id number] 1 tablet DAILY 1 tablet DAILY (route: oral) Med Classific ation: Central Nervous System Agents Vitamin D3 125 mcg (5,000 unit) tablet 09-28 00:00: 00 04-01 23:59 :00 No [id number] 1 tablet DAILY 1 tablet DAILY (route: oral) Med Classific ation: Electroly te Balance-N utritiona l Products clonazepam 0.5 mg tablet 2023-04 0-11 00:00: 00 04-01 23:59 :00 No [id number] Per instruc tions BEDTIME Per instructio ns BEDTIME (route: oral) Med Classific ation: Central Nervous System Agents acetaminoph en 325 mg tablet 04-30 00:00: 00 06-27 23:59 :00 No [id number] 2 tablet EVERY 4 HOURS 2 tablet EVERY 4 HOURS (route: oral) Med Classific ation: Analgesic , Anti-infl ammatory or Antipyret ic albuterol sulfate HFA 90 mcg/actuati on aerosol inhaler 04-30 00:00: 00 06-27 23:59 :00 No [id number] 2 puff EVERY 6 HOURS 2 puff EVERY 6 HOURS (route: inhalation ) Med Classific ation: Respirato ry Therapy Agents amantadine HCl 100 mg tablet 04-30 00:00: 00 06-27 23:59 :00 No [id number] 1 tablet DAILY 1 tablet DAILY (route: oral) Med Classific ation: Central Nervous System Agents amoxicillin 500 mg capsule 04-30 00:00: 00 06-27 23:59 :00 No [id number] 4 capsule DIRECTED 4 capsule DIRECTED (route: oral) Med Classific ation: Anti-Infe ctive Agents Breo Ellipta 100 mcg-25 mcg/dose powder for inhalation 04-30 00:00: 00 06-27 23:59 :00 No [id number] 1 inhalat ion DAILY 1 inhalation DAILY (route: inhalation ) Med Classific ation: Respirato ry Therapy Agents clonazepam 0.5 mg tablet 04-30 00:00: 00 06-27 23:59 :00 No [id number] 1 tablet BEDTIME 1 tablet BEDTIME (route: oral) Med Classific ation: Central Nervous System Agents docusate sodium 100 mg capsule 04-30 00:00: 00 06-27 23:59 :00 No [id number] 1 capsule 2 TIMES DAILY 1 capsule 2 TIMES DAILY (route: oral) Med Classific ation: Gastroint estinal Therapy Agents Eliquis 5 mg tablet 04-30 00:00: 00 06-27 23:59 :00 No [id number] 1 tablet 2 TIMES DAILY 1 tablet 2 TIMES DAILY (route: oral) Med Classific ation: Hematolog ical Agents finasteride 5 mg tablet 04-30 00:00: 00 06-27 23:59 :00 No [id number] 1 tablet DAILY 1 tablet DAILY (route: oral) Med Classific ation: Genitouri nary Therapy gabapentin 100 mg capsule 04-30 00:00: 00 06-27 23:59 :00 No [id number] 1 capsule DAILY 1 capsule DAILY (route: oral) Med Classific ation: Central Nervous System Agents gabapentin 300 mg capsule - 00:00: 00 06-27 23:59 :00 No [id number] 1 capsule BEDTIME 1 capsule BEDTIME (route: oral) Med Classific ation: Central Nervous System Agents mirtazapine 45 mg tablet - 00:00: 00 06-27 23:59 :00 No [id number] 1 tablet BEDTIME 1 tablet BEDTIME (route: oral) Med Classific ation: Central Nervous System Agents pantoprazol e 40 mg tablet,baltazar yed release - 00:00: 00 06-27 23:59 :00 No [id number] 1 tablet DAILY 1 tablet DAILY (route: oral) Med Classific ation: Gastroint estinal Therapy Agents ropinirole 0.25 mg tablet 04-30 00:00: 00 06-27 23:59 :00 No [id number] 1-4 tablet DIRECTED 1-4 tablet DIRECTED (route: oral) Med Classific ation: Central Nervous System Agents Rytary 36.25 mg-145 mg capsule,ext ended release 04-30 00:00: 00 06-27 23:59 :00 No [id number] 2 capsule 4 TIMES DAILY 2 capsule 4 TIMES DAILY (route: oral) Med Classific ation: Central Nervous System Agents venlafaxine ER 225 mg tablet,exte nded release 24 hr - 00:00: 00 06-27 23:59 :00 No [id number] 1 tablet BEDTIME 1 tablet BEDTIME (route: oral) Med Classific ation: Central Nervous System Agents amantadine HCl 100 mg capsule 3-04 00:00: 00 Yes [id number] 1 capsule DAILY 1 capsule DAILY (route: oral) Med Classific ation: Central Nervous System Agents clonazepam 0.5 mg tablet 3-04 00:00: 00 Yes [id number] 1 tablet BEDTIME 1 tablet BEDTIME (route: oral) Med Classific ation: Central Nervous System Agents Eliquis 5 mg tablet 3-04 00:00: 00 Yes [id number] 1 tablet 2 TIMES DAILY 1 tablet 2 TIMES DAILY (route: oral) Med Classific ation: Hematolog ical Agents finasteride 5 mg tablet 06-29 00:00: 00 Yes [id number] 1 tablet DAILY 1 tablet DAILY (route: oral) Med Classific ation: Genitouri nary Therapy gabapentin 100 mg capsule 06-29 00:00: 00 Yes [id number] 1 capsule DAILY 1 capsule DAILY (route: oral) Med Classific ation: Central Nervous System Agents gabapentin 300 mg capsule 06-29 00:00: 00 Yes [id number] 1 capsule BEDTIME 1 capsule BEDTIME (route: oral) Med Classific ation: Central Nervous System Agents mirtazapine 45 mg tablet 06-29 00:00: 00 Yes [id number] 1 tablet DAILY 1 tablet DAILY (route: oral) Med Classific ation: Central Nervous System Agents pantoprazol e 40 mg tablet,baltazar yed release 06-29 00:00: 00 10-21 23:59 :00 No [id number] 1 tablet DAILY 1 tablet DAILY (route: oral) Med Classific ation: Gastroint estinal Therapy Agents ropinirole 0.25 mg tablet 06-29 00:00: 00 Yes [id number] 2 tablet DAILY 2 tablet DAILY (route: oral) Med Classific ation: Central Nervous System Agents Rytary 36.25 mg-145 mg capsule,ext ended release 06-29 00:00: 00 Yes [id number] 3 capsule 4 TIMES DAILY 3 capsule 4 TIMES DAILY (route: oral) Med Classific ation: Central Nervous System Agents venlafaxine ER 225 mg tablet,exte nded release 24 hr 06-29 00:00: 00 Yes [id number] 1 tablet DAILY 1 tablet DAILY (route: oral) Med Classific ation: Central Nervous System Agents albuterol sulfate HFA 90 mcg/actuati on aerosol inhaler 06-29 00:00: 00 Yes [id number] 2 puff EVERY 6 HOURS 2 puff EVERY 6 HOURS (route: inhalation ) Med Classific ation: Respirato ry Therapy Agents Breo Ellipta 100 mcg-25 mcg/dose powder for inhalation 3-04 00:00: 00 Yes [id number] 1 inhalat ion DAILY 1 inhalation DAILY (route: inhalation ) Med Classific ation: Respirato ry Therapy Agents pantoprazol e 40 mg tablet,baltazar yed release 3- 00:00: 00 10-21 23:59 :00 No [id number] 1 tablet 2 TIMES DAILY 1 tablet 2 TIMES DAILY (route: oral) Med Classific ation: Gastroint estinal Therapy Agents fluconazole 200 mg tablet - 00:00: 00 Yes [id number] 200 mg DAILY 200 mg DAILY (route: oral) Alternate Route: SUBLINGUA L. Med Classific ation: Anti-Infe ctive Agents Carafate 100 mg/mL oral suspension 10-26 00:00: 00 Yes [id number] 10 mL 4 TIMES DAILY 10 mL 4 TIMES DAILY (route: oral) Med Classific ation: Gastroint estinal Therapy Agents Voquezna 20 mg tablet 10-26 00:00: 00 12-03 00:58 :03.3 47 No [id number] 1 tablet 2 TIMES DAILY 1 tablet 2 TIMES DAILY (route: oral) Med Classific ation: Gastroint estinal Therapy Agents Voquezna 20 mg tablet 10-21 00:00: 00 Yes [id number] 1 tablet 2 TIMES DAILY 1 tablet [...] BLOCKAGE/LEAKAGE, HEAVY SEDIMENT. 1 - 3 PRN CARE HOME VISITS FOR CATHETER CHANGE(S) AND/OR TROUBLESHOOTING. [code = SKILLED NURSE TO INSTRUCT PATIENT/CAREGIVER AND PERFORM CARE AND MANAGEMENT OF INDWELLING URINARY CATHETER. [place] CATHETER INSERTION WITH 18 FR CATHETER WITH 10 ML BALLOON VIA STERILE TECHNIQUE, CHANGE Q 4 WEEKS AND PRN FOR LEAKING OR MALFUNCTIONING CATHETER. IRRIGATE URINARY CATHETER WITH 30-60CC NORMAL SALINE PRN BLOCKAGE/LEAKAGE, HEAVY SEDIMENT. 1 - 3 PRN CARE HOME VISITS FOR CATHETER CHANGE(S) AND/OR TROUBLESHOOTING.] [...] MAINTAIN SITUATIONAL AWARENESS AND WILL NOTIFY CLINICAL RESTAURANT AND BAR MANAGER AND PHYSICIAN/PROVIDER WITH ANY CHANGE IN CONDITION. [code = SKILLED NURSE TO PERFORM ENVIRONMENTAL SAFETY RISK ASSESSMENT AND FALL RISK ASSESSMENT AND PROVIDE INSTRUCTION TO IMPLEMENT ENVIRONMENTAL SAFETY AND FALL PREVENTION STRATEGIES THROUGHOUT THE CERTIFICATION PERIOD. SKILLED NURSE WILL MAINTAIN SITUATIONAL AWARENESS AND WILL NOTIFY CLINICAL RESTAURANT AND BAR MANAGER AND PHYSICIAN/PROVIDER WITH ANY CHANGE IN [...] PATIENT LIVING SITUATION/CAREGIVER STATUS: [facility] SP[facility]SE SUMMARIZE SKILLED NEED: DISEASE [...] CARE WILL BE ESTABLISHED THAT MEETS PATIENT'S CARE HOME NEEDS AND INCLUDES PATIENT GOAL FOR [...] 2025-04-24 00:00:00 Outpatient RECERTIFIC ATION DEMETRI SLAUGHTER [facility] [id number] 6.25
--- OUTSIDE RECORDS SUMMARY | 2025-04-23 19:00 | XMS_ITS | Clinical Summary ---
Author Organization Unknown Care Team Providers Care Scanner Operator Name Role Phone DARIAN DANGELO, ANYA Unavailable Unavaila aleisha CHRISTENSEN SCARF GLUER/AVIONICS MANAGER, RENAN Unavailable Unava susie SLAUGHTER RN, DEMETRI Unavailable Unavailable Payers Payer Name Policy Type Policy Number Effective Date Expira tion Date MEDICARE - [facility] - PD [id number] Problems Condition Name Condition Details Condition Category [...] 01-11 00:00: 00 01-18 23:59 :00 No [id number] 1 tablet 2 TIMES DAILY 1 tablet 2 TIMES DAILY (route: oral) Med Classific ation: Anti-Infe ctive Agents lactulose 10 gram/15 mL oral solution 01-11 00:00: 00 04-01 23:59 :00 No [id number] 30 g DAILY 30 g DAILY (route: oral) Med Classific ation: Gastroint estinal Therapy Agents Rytary 36.25 mg-145 mg capsule,ext ended release 13 00:00: 00 04-01 23:59 :00 No [id number] 4 capsule 4 TIMES DAILY 4 capsule 4 TIMES DAILY (route: oral) Med Classific ation: Central Nervous System Agents Breo Ellipta 100 mcg-25 mcg/dose powder for inhalation - 00:00: 00 04-01 23:59 :00 No [id number] 1 inhalat ion ONCE DAILY 1 inhalation ONCE DAILY (route: inhalation ) Med Classific ation: Respirato ry Therapy Agents mirtazapine 45 mg tablet 12-12 00:00: 00 04-01 23:59 :00 No [id number] 1 tablet DAILY 1 tablet DAILY (route: oral) Med Classific ation: Central Nervous System Agents docusate sodium 100 mg capsule 16 00:00: 00 04-01 23:59 :00 No [id number] 1 capsule 2 TIMES DAILY 1 capsule 2 TIMES DAILY (route: oral) Med Classific ation: Gastroint estinal Therapy Agents Eliquis 5 mg tablet 10-26 00:00: 00 04-01 23:59 :00 No [id number] 1 tablet 2 TIMES DAILY 1 tablet 2 TIMES DAILY (route: oral) Med Classific ation: Hematolog ical Agents ferrous sulfate 325 mg (65 mg iron) tablet 10-26 00:00: 00 04-01 23:59 :00 No [id number] 1 tablet DAILY 1 tablet DAILY (route: oral) Med Classific ation: Electroly te Balance-N utritiona l Products finasteride 5 mg tablet 10-26 00:00: 00 04-01 23:59 :00 No [id number] 1 tablet DAILY 1 tablet DAILY (route: oral) Med Classific ation: Genitouri nary Therapy furosemide 40 mg tablet 10-26 00:00: 00 04-01 23:59 :00 No [id number] 1 tablet 2 TIMES DAILY 1 tablet 2 TIMES DAILY (route: oral) Med Classific ation: Cardiovas cular Therapy Agents magnesium 400 mg (as magnesium oxide) tablet 10-26 00:00: 00 04-01 23:59 :00 No [id number] 1 tablet DAILY 1 tablet DAILY (route: oral) Med Classific ation: Electroly te Balance-N utritiona l Products prednisolon e acetate 1 % eye drops,suspe nsion 10-26 00:00: 00 04-01 23:59 :00 No [id number] 1 drops 3 TIMES DAILY 1 drops 3 TIMES DAILY (route: ophthalmic (eye)) Med Classific ation: Ophthalmi c Agents ropinirole 0.25 mg tablet 09-28 00:00: 00 04-01 23:59 :00 No [id number] Per instruc tions DIRECTED Per instructio ns DIRECTED (route: oral) Med Classific ation: Central Nervous System Agents venlafaxine ER 225 mg tablet,exte nded release 24 hr 10-26 00:00: 00 04-01 23:59 :00 No [id number] 1 tablet DAILY 1 tablet DAILY (route: oral) Med Classific ation: Central Nervous System Agents Vitamin D3 125 mcg (5,000 unit) tablet 09-28 00:00: 00 04-01 23:59 :00 No [id number] 1 tablet DAILY 1 tablet DAILY (route: oral) Med Classific ation: Electroly te Balance-N utritiona l Products clonazepam 0.5 mg tablet 2023-04 0-11 00:00: 00 04-01 23:59 :00 No [id number] Per instruc tions BEDTIME Per instructio ns BEDTIME (route: oral) Med Classific ation: Central Nervous System Agents acetaminoph en 325 mg tablet 04-30 00:00: 00 06-27 23:59 :00 No [id number] 2 tablet EVERY 4 HOURS 2 tablet EVERY 4 HOURS (route: oral) Med Classific ation: Analgesic , Anti-infl ammatory or Antipyret ic albuterol sulfate HFA 90 mcg/actuati on aerosol inhaler 04-30 00:00: 00 06-27 23:59 :00 No [id number] 2 puff EVERY 6 HOURS 2 puff EVERY 6 HOURS (route: inhalation ) Med Classific ation: Respirato ry Therapy Agents amantadine HCl 100 mg tablet 04-30 00:00: 00 06-27 23:59 :00 No [id number] 1 tablet DAILY 1 tablet DAILY (route: oral) Med Classific ation: Central Nervous System Agents amoxicillin 500 mg capsule 04-30 00:00: 00 06-27 23:59 :00 No [id number] 4 capsule DIRECTED 4 capsule DIRECTED (route: oral) Med Classific ation: Anti-Infe ctive Agents Breo Ellipta 100 mcg-25 mcg/dose powder for inhalation 04-30 00:00: 00 06-27 23:59 :00 No [id number] 1 inhalat ion DAILY 1 inhalation DAILY (route: inhalation ) Med Classific ation: Respirato ry Therapy Agents clonazepam 0.5 mg tablet 04-30 00:00: 00 06-27 23:59 :00 No [id number] 1 tablet BEDTIME 1 tablet BEDTIME (route: oral) Med Classific ation: Central Nervous System Agents docusate sodium 100 mg capsule 04-30 00:00: 00 06-27 23:59 :00 No [id number] 1 capsule 2 TIMES DAILY 1 capsule 2 TIMES DAILY (route: oral) Med Classific ation: Gastroint estinal Therapy Agents Eliquis 5 mg tablet 04-30 00:00: 00 06-27 23:59 :00 No [id number] 1 tablet 2 TIMES DAILY 1 tablet 2 TIMES DAILY (route: oral) Med Classific ation: Hematolog ical Agents finasteride 5 mg tablet 04-30 00:00: 00 06-27 23:59 :00 No [id number] 1 tablet DAILY 1 tablet DAILY (route: oral) Med Classific ation: Genitouri nary Therapy gabapentin 100 mg capsule 04-30 00:00: 00 06-27 23:59 :00 No [id number] 1 capsule DAILY 1 capsule DAILY (route: oral) Med Classific ation: Central Nervous System Agents gabapentin 300 mg capsule - 00:00: 00 06-27 23:59 :00 No [id number] 1 capsule BEDTIME 1 capsule BEDTIME (route: oral) Med Classific ation: Central Nervous System Agents mirtazapine 45 mg tablet - 00:00: 00 06-27 23:59 :00 No [id number] 1 tablet BEDTIME 1 tablet BEDTIME (route: oral) Med Classific ation: Central Nervous System Agents pantoprazol e 40 mg tablet,baltazar yed release - 00:00: 00 06-27 23:59 :00 No [id number] 1 tablet DAILY 1 tablet DAILY (route: oral) Med Classific ation: Gastroint estinal Therapy Agents ropinirole 0.25 mg tablet 04-30 00:00: 00 06-27 23:59 :00 No [id number] 1-4 tablet DIRECTED 1-4 tablet DIRECTED (route: oral) Med Classific ation: Central Nervous System Agents Rytary 36.25 mg-145 mg capsule,ext ended release 04-30 00:00: 00 06-27 23:59 :00 No [id number] 2 capsule 4 TIMES DAILY 2 capsule 4 TIMES DAILY (route: oral) Med Classific ation: Central Nervous System Agents venlafaxine ER 225 mg tablet,exte nded release 24 hr - 00:00: 00 06-27 23:59 :00 No [id number] 1 tablet BEDTIME 1 tablet BEDTIME (route: oral) Med Classific ation: Central Nervous System Agents amantadine HCl 100 mg capsule 3-04 00:00: 00 Yes [id number] 1 capsule DAILY 1 capsule DAILY (route: oral) Med Classific ation: Central Nervous System Agents clonazepam 0.5 mg tablet 3-04 00:00: 00 Yes [id number] 1 tablet BEDTIME 1 tablet BEDTIME (route: oral) Med Classific ation: Central Nervous System Agents Eliquis 5 mg tablet 3-04 00:00: 00 Yes [id number] 1 tablet 2 TIMES DAILY 1 tablet 2 TIMES DAILY (route: oral) Med Classific ation: Hematolog ical Agents finasteride 5 mg tablet 06-29 00:00: 00 Yes [id number] 1 tablet DAILY 1 tablet DAILY (route: oral) Med Classific ation: Genitouri nary Therapy gabapentin 100 mg capsule 06-29 00:00: 00 Yes [id number] 1 capsule DAILY 1 capsule DAILY (route: oral) Med Classific ation: Central Nervous System Agents gabapentin 300 mg capsule 06-29 00:00: 00 Yes [id number] 1 capsule BEDTIME 1 capsule BEDTIME (route: oral) Med Classific ation: Central Nervous System Agents mirtazapine 45 mg tablet 06-29 00:00: 00 Yes [id number] 1 tablet DAILY 1 tablet DAILY (route: oral) Med Classific ation: Central Nervous System Agents pantoprazol e 40 mg tablet,baltazar yed release 06-29 00:00: 00 10-21 23:59 :00 No [id number] 1 tablet DAILY 1 tablet DAILY (route: oral) Med Classific ation: Gastroint estinal Therapy Agents ropinirole 0.25 mg tablet 06-29 00:00: 00 Yes [id number] 2 tablet DAILY 2 tablet DAILY (route: oral) Med Classific ation: Central Nervous System Agents Rytary 36.25 mg-145 mg capsule,ext ended release 06-29 00:00: 00 Yes [id number] 3 capsule 4 TIMES DAILY 3 capsule 4 TIMES DAILY (route: oral) Med Classific ation: Central Nervous System Agents venlafaxine ER 225 mg tablet,exte nded release 24 hr 06-29 00:00: 00 Yes [id number] 1 tablet DAILY 1 tablet DAILY (route: oral) Med Classific ation: Central Nervous System Agents albuterol sulfate HFA 90 mcg/actuati on aerosol inhaler 06-29 00:00: 00 Yes [id number] 2 puff EVERY 6 HOURS 2 puff EVERY 6 HOURS (route: inhalation ) Med Classific ation: Respirato ry Therapy Agents Breo Ellipta 100 mcg-25 mcg/dose powder for inhalation 3-04 00:00: 00 Yes [id number] 1 inhalat ion DAILY 1 inhalation DAILY (route: inhalation ) Med Classific ation: Respirato ry Therapy Agents pantoprazol e 40 mg tablet,baltazar yed release 3- 00:00: 00 10-21 23:59 :00 No [id number] 1 tablet 2 TIMES DAILY 1 tablet 2 TIMES DAILY (route: oral) Med Classific ation: Gastroint estinal Therapy Agents fluconazole 200 mg tablet - 00:00: 00 Yes [id number] 200 mg DAILY 200 mg DAILY (route: oral) Alternate Route: SUBLINGUA L. Med Classific ation: Anti-Infe ctive Agents Carafate 100 mg/mL oral suspension 10-26 00:00: 00 Yes [id number] 10 mL 4 TIMES DAILY 10 mL 4 TIMES DAILY (route: oral) Med Classific ation: Gastroint estinal Therapy Agents Voquezna 20 mg tablet 10-26 00:00: 00 12-03 00:58 :03.3 47 No [id number] 1 tablet 2 TIMES DAILY 1 tablet 2 TIMES DAILY (route: oral) Med Classific ation: Gastroint estinal Therapy Agents Voquezna 20 mg tablet 10-21 00:00: 00 Yes [id number] 1 tablet 2 TIMES DAILY 1 tablet [...] MAINTAIN SITUATIONAL AWARENESS AND WILL NOTIFY CLINICAL DIRECTOR OF LAND ACQUISITION AND PHYSICIAN/PROVIDER WITH ANY CHANGE IN CONDITION. [code = SKILLED NURSE TO PERFORM ENVIRONMENTAL SAFETY RISK ASSESSMENT AND FALL RISK ASSESSMENT AND PROVIDE INSTRUCTION TO IMPLEMENT ENVIRONMENTAL SAFETY AND FALL PREVENTION STRATEGIES THROUGHOUT THE CERTIFICATION PERIOD. SKILLED NURSE WILL MAINTAIN SITUATIONAL AWARENESS AND WILL NOTIFY CLINICAL DIRECTOR OF LAND ACQUISITION AND PHYSICIAN/PROVIDER WITH ANY CHANGE IN CONDITION.] [...] LASIX PATIENT LIVING SITUATION/CAREGIVER STATUS: [facility] SKILLED NEED: [...] 2025-04-24 00:00:00 Outpatient RECERTIFIC ATION DEMETRI SLAUGHTER [facility] [id number] 6.25
--- OUTSIDE RECORDS SUMMARY | 2025-04-23 19:00 | XMS_ITS | Clinical Summary ---
Author Organization Unknown Care Team Providers Care Salvage Clerk Name Role Phone DARIAN DANGELO, ANYA Unavailable Unavaila aleisha CHRISTENSEN SPECIAL PROCEDURES TECH/COMMUNITY EDUCATION SPECIALIST, RENAN Unavailable Unava susie SLAUGHTER RN, DEMETRI Unavailable Unavailable Payers Payer Name Policy Type Policy Number Effective Date Expira tion Date MEDICARE - [facility] CT - PD [id number] Problems Condition Name Condition Details Condition Category [...] 01-11 00:00: 00 01-18 23:59 :00 No [id number] 1 tablet 2 TIMES DAILY 1 tablet 2 TIMES DAILY (route: oral) Med Classific ation: Anti-Infe ctive Agents lactulose 10 gram/15 mL oral solution 01-11 00:00: 00 04-01 23:59 :00 No [id number] 30 g DAILY 30 g DAILY (route: oral) Med Classific ation: Gastroint estinal Therapy Agents Rytary 36.25 mg-145 mg capsule,ext ended release 13 00:00: 00 04-01 23:59 :00 No [id number] 4 capsule 4 TIMES DAILY 4 capsule 4 TIMES DAILY (route: oral) Med Classific ation: Central Nervous System Agents Breo Ellipta 100 mcg-25 mcg/dose powder for inhalation - 00:00: 00 04-01 23:59 :00 No [id number] 1 inhalat ion ONCE DAILY 1 inhalation ONCE DAILY (route: inhalation ) Med Classific ation: Respirato ry Therapy Agents mirtazapine 45 mg tablet 12-12 00:00: 00 04-01 23:59 :00 No [id number] 1 tablet DAILY 1 tablet DAILY (route: oral) Med Classific ation: Central Nervous System Agents docusate sodium 100 mg capsule 16 00:00: 00 04-01 23:59 :00 No [id number] 1 capsule 2 TIMES DAILY 1 capsule 2 TIMES DAILY (route: oral) Med Classific ation: Gastroint estinal Therapy Agents Eliquis 5 mg tablet 10-26 00:00: 00 04-01 23:59 :00 No [id number] 1 tablet 2 TIMES DAILY 1 tablet 2 TIMES DAILY (route: oral) Med Classific ation: Hematolog ical Agents ferrous sulfate 325 mg (65 mg iron) tablet 10-26 00:00: 00 04-01 23:59 :00 No [id number] 1 tablet DAILY 1 tablet DAILY (route: oral) Med Classific ation: Electroly te Balance-N utritiona l Products finasteride 5 mg tablet 10-26 00:00: 00 04-01 23:59 :00 No [id number] 1 tablet DAILY 1 tablet DAILY (route: oral) Med Classific ation: Genitouri nary Therapy furosemide 40 mg tablet 10-26 00:00: 00 04-01 23:59 :00 No [id number] 1 tablet 2 TIMES DAILY 1 tablet 2 TIMES DAILY (route: oral) Med Classific ation: Cardiovas cular Therapy Agents magnesium 400 mg (as magnesium oxide) tablet 10-26 00:00: 00 04-01 23:59 :00 No [id number] 1 tablet DAILY 1 tablet DAILY (route: oral) Med Classific ation: Electroly te Balance-N utritiona l Products prednisolon e acetate 1 % eye drops,suspe nsion 10-26 00:00: 00 04-01 23:59 :00 No [id number] 1 drops 3 TIMES DAILY 1 drops 3 TIMES DAILY (route: ophthalmic (eye)) Med Classific ation: Ophthalmi c Agents ropinirole 0.25 mg tablet 09-28 00:00: 00 04-01 23:59 :00 No [id number] Per instruc tions DIRECTED Per instructio ns DIRECTED (route: oral) Med Classific ation: Central Nervous System Agents venlafaxine ER 225 mg tablet,exte nded release 24 hr 10-26 00:00: 00 04-01 23:59 :00 No [id number] 1 tablet DAILY 1 tablet DAILY (route: oral) Med Classific ation: Central Nervous System Agents Vitamin D3 125 mcg (5,000 unit) tablet 09-28 00:00: 00 04-01 23:59 :00 No [id number] 1 tablet DAILY 1 tablet DAILY (route: oral) Med Classific ation: Electroly te Balance-N utritiona l Products clonazepam 0.5 mg tablet 2023-04 0-11 00:00: 00 04-01 23:59 :00 No [id number] Per instruc tions BEDTIME Per instructio ns BEDTIME (route: oral) Med Classific ation: Central Nervous System Agents acetaminoph en 325 mg tablet 04-30 00:00: 00 06-27 23:59 :00 No [id number] 2 tablet EVERY 4 HOURS 2 tablet EVERY 4 HOURS (route: oral) Med Classific ation: Analgesic , Anti-infl ammatory or Antipyret ic albuterol sulfate HFA 90 mcg/actuati on aerosol inhaler 04-30 00:00: 00 06-27 23:59 :00 No [id number] 2 puff EVERY 6 HOURS 2 puff EVERY 6 HOURS (route: inhalation ) Med Classific ation: Respirato ry Therapy Agents amantadine HCl 100 mg tablet 04-30 00:00: 00 06-27 23:59 :00 No [id number] 1 tablet DAILY 1 tablet DAILY (route: oral) Med Classific ation: Central Nervous System Agents amoxicillin 500 mg capsule 04-30 00:00: 00 06-27 23:59 :00 No [id number] 4 capsule DIRECTED 4 capsule DIRECTED (route: oral) Med Classific ation: Anti-Infe ctive Agents Breo Ellipta 100 mcg-25 mcg/dose powder for inhalation 04-30 00:00: 00 06-27 23:59 :00 No [id number] 1 inhalat ion DAILY 1 inhalation DAILY (route: inhalation ) Med Classific ation: Respirato ry Therapy Agents clonazepam 0.5 mg tablet 04-30 00:00: 00 06-27 23:59 :00 No [id number] 1 tablet BEDTIME 1 tablet BEDTIME (route: oral) Med Classific ation: Central Nervous System Agents docusate sodium 100 mg capsule 04-30 00:00: 00 06-27 23:59 :00 No [id number] 1 capsule 2 TIMES DAILY 1 capsule 2 TIMES DAILY (route: oral) Med Classific ation: Gastroint estinal Therapy Agents Eliquis 5 mg tablet 04-30 00:00: 00 06-27 23:59 :00 No [id number] 1 tablet 2 TIMES DAILY 1 tablet 2 TIMES DAILY (route: oral) Med Classific ation: Hematolog ical Agents finasteride 5 mg tablet 04-30 00:00: 00 06-27 23:59 :00 No [id number] 1 tablet DAILY 1 tablet DAILY (route: oral) Med Classific ation: Genitouri nary Therapy gabapentin 100 mg capsule 04-30 00:00: 00 06-27 23:59 :00 No [id number] 1 capsule DAILY 1 capsule DAILY (route: oral) Med Classific ation: Central Nervous System Agents gabapentin 300 mg capsule - 00:00: 00 06-27 23:59 :00 No [id number] 1 capsule BEDTIME 1 capsule BEDTIME (route: oral) Med Classific ation: Central Nervous System Agents mirtazapine 45 mg tablet - 00:00: 00 06-27 23:59 :00 No [id number] 1 tablet BEDTIME 1 tablet BEDTIME (route: oral) Med Classific ation: Central Nervous System Agents pantoprazol e 40 mg tablet,baltazar yed release - 00:00: 00 06-27 23:59 :00 No [id number] 1 tablet DAILY 1 tablet DAILY (route: oral) Med Classific ation: Gastroint estinal Therapy Agents ropinirole 0.25 mg tablet 04-30 00:00: 00 06-27 23:59 :00 No [id number] 1-4 tablet DIRECTED 1-4 tablet DIRECTED (route: oral) Med Classific ation: Central Nervous System Agents Rytary 36.25 mg-145 mg capsule,ext ended release 04-30 00:00: 00 06-27 23:59 :00 No [id number] 2 capsule 4 TIMES DAILY 2 capsule 4 TIMES DAILY (route: oral) Med Classific ation: Central Nervous System Agents venlafaxine ER 225 mg tablet,exte nded release 24 hr - 00:00: 00 06-27 23:59 :00 No [id number] 1 tablet BEDTIME 1 tablet BEDTIME (route: oral) Med Classific ation: Central Nervous System Agents amantadine HCl 100 mg capsule 3-04 00:00: 00 Yes [id number] 1 capsule DAILY 1 capsule DAILY (route: oral) Med Classific ation: Central Nervous System Agents clonazepam 0.5 mg tablet 3-04 00:00: 00 Yes [id number] 1 tablet BEDTIME 1 tablet BEDTIME (route: oral) Med Classific ation: Central Nervous System Agents Eliquis 5 mg tablet 3-04 00:00: 00 Yes [id number] 1 tablet 2 TIMES DAILY 1 tablet 2 TIMES DAILY (route: oral) Med Classific ation: Hematolog ical Agents finasteride 5 mg tablet 06-29 00:00: 00 Yes [id number] 1 tablet DAILY 1 tablet DAILY (route: oral) Med Classific ation: Genitouri nary Therapy gabapentin 100 mg capsule 06-29 00:00: 00 Yes [id number] 1 capsule DAILY 1 capsule DAILY (route: oral) Med Classific ation: Central Nervous System Agents gabapentin 300 mg capsule 06-29 00:00: 00 Yes [id number] 1 capsule BEDTIME 1 capsule BEDTIME (route: oral) Med Classific ation: Central Nervous System Agents mirtazapine 45 mg tablet 06-29 00:00: 00 Yes [id number] 1 tablet DAILY 1 tablet DAILY (route: oral) Med Classific ation: Central Nervous System Agents pantoprazol e 40 mg tablet,baltazar yed release 06-29 00:00: 00 10-21 23:59 :00 No [id number] 1 tablet DAILY 1 tablet DAILY (route: oral) Med Classific ation: Gastroint estinal Therapy Agents ropinirole 0.25 mg tablet 06-29 00:00: 00 Yes [id number] 2 tablet DAILY 2 tablet DAILY (route: oral) Med Classific ation: Central Nervous System Agents Rytary 36.25 mg-145 mg capsule,ext ended release 06-29 00:00: 00 Yes [id number] 3 capsule 4 TIMES DAILY 3 capsule 4 TIMES DAILY (route: oral) Med Classific ation: Central Nervous System Agents venlafaxine ER 225 mg tablet,exte nded release 24 hr 06-29 00:00: 00 Yes [id number] 1 tablet DAILY 1 tablet DAILY (route: oral) Med Classific ation: Central Nervous System Agents albuterol sulfate HFA 90 mcg/actuati on aerosol inhaler 06-29 00:00: 00 Yes [id number] 2 puff EVERY 6 HOURS 2 puff EVERY 6 HOURS (route: inhalation ) Med Classific ation: Respirato ry Therapy Agents Breo Ellipta 100 mcg-25 mcg/dose powder for inhalation 3-04 00:00: 00 Yes [id number] 1 inhalat ion DAILY 1 inhalation DAILY (route: inhalation ) Med Classific ation: Respirato ry Therapy Agents pantoprazol e 40 mg tablet,baltazar yed release 3- 00:00: 00 10-21 23:59 :00 No [id number] 1 tablet 2 TIMES DAILY 1 tablet 2 TIMES DAILY (route: oral) Med Classific ation: Gastroint estinal Therapy Agents fluconazole 200 mg tablet - 00:00: 00 Yes [id number] 200 mg DAILY 200 mg DAILY (route: oral) Alternate Route: SUBLINGUA L. Med Classific ation: Anti-Infe ctive Agents Carafate 100 mg/mL oral suspension 10-26 00:00: 00 Yes [id number] 10 mL 4 TIMES DAILY 10 mL 4 TIMES DAILY (route: oral) Med Classific ation: Gastroint estinal Therapy Agents Voquezna 20 mg tablet 10-26 00:00: 00 12-03 00:58 :03.3 47 No [id number] 1 tablet 2 TIMES DAILY 1 tablet 2 TIMES DAILY (route: oral) Med Classific ation: Gastroint estinal Therapy Agents Voquezna 20 mg tablet 10-21 00:00: 00 Yes [id number] 1 tablet 2 TIMES DAILY 1 tablet [...] MAINTAIN SITUATIONAL AWARENESS AND WILL NOTIFY CLINICAL CISO AND PHYSICIAN/PROVIDER WITH ANY CHANGE IN CONDITION. [code = SKILLED NURSE TO PERFORM ENVIRONMENTAL SAFETY RISK ASSESSMENT AND FALL RISK ASSESSMENT AND PROVIDE INSTRUCTION TO IMPLEMENT ENVIRONMENTAL SAFETY AND FALL PREVENTION STRATEGIES THROUGHOUT THE CERTIFICATION PERIOD. SKILLED NURSE WILL MAINTAIN SITUATIONAL AWARENESS AND WILL NOTIFY CLINICAL CISO AND PHYSICIAN/PROVIDER WITH ANY CHANGE IN CONDITION.] [...] LASIX PATIENT LIVING SITUATION/CAREGIVER STATUS: [facility] SUMMAR[facility] SKILLED NEED: DISEASE [...] End Date/Time Encounter Type Admission Type Attending [facility] Care Department Encounter ID Discharge Date Discharge Status Discharge Condition Discharge Reason Percent Goals Met 2025-02-24 00:00:00 2025-04-24 00:00:00 Outpatient RECERTIFIC ATION DEMETRI SLAUGHTER [facility] [id number] 6.25
--- OUTSIDE RECORDS SUMMARY | 2025-04-23 19:00 | XMS_ITS | Clinical Summary ---
Author Organization Unknown Care Team Providers Care News Correspondent Name Role Phone DARIAN DANGELO, ANYA Unavailable Unavaila aleisha CHRISTENSEN TANK WAGON OPERATOR/LINE PRODUCTION COOK, RENAN Unavailable Unava susie SLAUGHTER RN, DEMETRI Unavailable Unavailable Payers Payer Name Policy Type Policy Number Effective Date Expira tion Date MEDICARE - [facility] CT - PD [id number] Problems Condition Name Condition Details Condition Category [...] OF URINARY DEVICE Active 04-28 00:00: 00 CARE HOME (CURRENT) USE OF ANTICOAGULAN TS Active [...] 01-11 00:00: 00 01-18 23:59 :00 No [id number] 1 tablet 2 TIMES DAILY 1 tablet 2 TIMES DAILY (route: oral) Med Classific ation: Anti-Infe ctive Agents lactulose 10 gram/15 mL oral solution 01-11 00:00: 00 04-01 23:59 :00 No [id number] 30 g DAILY 30 g DAILY (route: oral) Med Classific ation: Gastroint estinal Therapy Agents Rytary 36.25 mg-145 mg capsule,ext ended release 13 00:00: 00 04-01 23:59 :00 No [id number] 4 capsule 4 TIMES DAILY 4 capsule 4 TIMES DAILY (route: oral) Med Classific ation: Central Nervous System Agents Breo Ellipta 100 mcg-25 mcg/dose powder for inhalation - 00:00: 00 04-01 23:59 :00 No [id number] 1 inhalat ion ONCE DAILY 1 inhalation ONCE DAILY (route: inhalation ) Med Classific ation: Respirato ry Therapy Agents mirtazapine 45 mg tablet 12-12 00:00: 00 04-01 23:59 :00 No [id number] 1 tablet DAILY 1 tablet DAILY (route: oral) Med Classific ation: Central Nervous System Agents docusate sodium 100 mg capsule 16 00:00: 00 04-01 23:59 :00 No [id number] 1 capsule 2 TIMES DAILY 1 capsule 2 TIMES DAILY (route: oral) Med Classific ation: Gastroint estinal Therapy Agents Eliquis 5 mg tablet 10-26 00:00: 00 04-01 23:59 :00 No [id number] 1 tablet 2 TIMES DAILY 1 tablet 2 TIMES DAILY (route: oral) Med Classific ation: Hematolog ical Agents ferrous sulfate 325 mg (65 mg iron) tablet 10-26 00:00: 00 04-01 23:59 :00 No [id number] 1 tablet DAILY 1 tablet DAILY (route: oral) Med Classific ation: Electroly te Balance-N utritiona l Products finasteride 5 mg tablet 10-26 00:00: 00 04-01 23:59 :00 No [id number] 1 tablet DAILY 1 tablet DAILY (route: oral) Med Classific ation: Genitouri nary Therapy furosemide 40 mg tablet 10-26 00:00: 00 04-01 23:59 :00 No [id number] 1 tablet 2 TIMES DAILY 1 tablet 2 TIMES DAILY (route: oral) Med Classific ation: Cardiovas cular Therapy Agents magnesium 400 mg (as magnesium oxide) tablet 10-26 00:00: 00 04-01 23:59 :00 No [id number] 1 tablet DAILY 1 tablet DAILY (route: oral) Med Classific ation: Electroly te Balance-N utritiona l Products prednisolon e acetate 1 % eye drops,suspe nsion 10-26 00:00: 00 04-01 23:59 :00 No [id number] 1 drops 3 TIMES DAILY 1 drops 3 TIMES DAILY (route: ophthalmic (eye)) Med Classific ation: Ophthalmi c Agents ropinirole 0.25 mg tablet 09-28 00:00: 00 04-01 23:59 :00 No [id number] Per instruc tions DIRECTED Per instructio ns DIRECTED (route: oral) Med Classific ation: Central Nervous System Agents venlafaxine ER 225 mg tablet,exte nded release 24 hr 10-26 00:00: 00 04-01 23:59 :00 No [id number] 1 tablet DAILY 1 tablet DAILY (route: oral) Med Classific ation: Central Nervous System Agents Vitamin D3 125 mcg (5,000 unit) tablet 09-28 00:00: 00 04-01 23:59 :00 No [id number] 1 tablet DAILY 1 tablet DAILY (route: oral) Med Classific ation: Electroly te Balance-N utritiona l Products clonazepam 0.5 mg tablet 2023-04 0-11 00:00: 00 04-01 23:59 :00 No [id number] Per instruc tions BEDTIME Per instructio ns BEDTIME (route: oral) Med Classific ation: Central Nervous System Agents acetaminoph en 325 mg tablet 04-30 00:00: 00 06-27 23:59 :00 No [id number] 2 tablet EVERY 4 HOURS 2 tablet EVERY 4 HOURS (route: oral) Med Classific ation: Analgesic , Anti-infl ammatory or Antipyret ic albuterol sulfate HFA 90 mcg/actuati on aerosol inhaler 04-30 00:00: 00 06-27 23:59 :00 No [id number] 2 puff EVERY 6 HOURS 2 puff EVERY 6 HOURS (route: inhalation ) Med Classific ation: Respirato ry Therapy Agents amantadine HCl 100 mg tablet 04-30 00:00: 00 06-27 23:59 :00 No [id number] 1 tablet DAILY 1 tablet DAILY (route: oral) Med Classific ation: Central Nervous System Agents amoxicillin 500 mg capsule 04-30 00:00: 00 06-27 23:59 :00 No [id number] 4 capsule DIRECTED 4 capsule DIRECTED (route: oral) Med Classific ation: Anti-Infe ctive Agents Breo Ellipta 100 mcg-25 mcg/dose powder for inhalation 04-30 00:00: 00 06-27 23:59 :00 No [id number] 1 inhalat ion DAILY 1 inhalation DAILY (route: inhalation ) Med Classific ation: Respirato ry Therapy Agents clonazepam 0.5 mg tablet 04-30 00:00: 00 06-27 23:59 :00 No [id number] 1 tablet BEDTIME 1 tablet BEDTIME (route: oral) Med Classific ation: Central Nervous System Agents docusate sodium 100 mg capsule 04-30 00:00: 00 06-27 23:59 :00 No [id number] 1 capsule 2 TIMES DAILY 1 capsule 2 TIMES DAILY (route: oral) Med Classific ation: Gastroint estinal Therapy Agents Eliquis 5 mg tablet 04-30 00:00: 00 06-27 23:59 :00 No [id number] 1 tablet 2 TIMES DAILY 1 tablet 2 TIMES DAILY (route: oral) Med Classific ation: Hematolog ical Agents finasteride 5 mg tablet 04-30 00:00: 00 06-27 23:59 :00 No [id number] 1 tablet DAILY 1 tablet DAILY (route: oral) Med Classific ation: Genitouri nary Therapy gabapentin 100 mg capsule 04-30 00:00: 00 06-27 23:59 :00 No [id number] 1 capsule DAILY 1 capsule DAILY (route: oral) Med Classific ation: Central Nervous System Agents gabapentin 300 mg capsule - 00:00: 00 06-27 23:59 :00 No [id number] 1 capsule BEDTIME 1 capsule BEDTIME (route: oral) Med Classific ation: Central Nervous System Agents mirtazapine 45 mg tablet - 00:00: 00 06-27 23:59 :00 No [id number] 1 tablet BEDTIME 1 tablet BEDTIME (route: oral) Med Classific ation: Central Nervous System Agents pantoprazol e 40 mg tablet,baltazar yed release - 00:00: 00 06-27 23:59 :00 No [id number] 1 tablet DAILY 1 tablet DAILY (route: oral) Med Classific ation: Gastroint estinal Therapy Agents ropinirole 0.25 mg tablet 04-30 00:00: 00 06-27 23:59 :00 No [id number] 1-4 tablet DIRECTED 1-4 tablet DIRECTED (route: oral) Med Classific ation: Central Nervous System Agents Rytary 36.25 mg-145 mg capsule,ext ended release 04-30 00:00: 00 06-27 23:59 :00 No [id number] 2 capsule 4 TIMES DAILY 2 capsule 4 TIMES DAILY (route: oral) Med Classific ation: Central Nervous System Agents venlafaxine ER 225 mg tablet,exte nded release 24 hr - 00:00: 00 06-27 23:59 :00 No [id number] 1 tablet BEDTIME 1 tablet BEDTIME (route: oral) Med Classific ation: Central Nervous System Agents amantadine HCl 100 mg capsule 3-04 00:00: 00 Yes [id number] 1 capsule DAILY 1 capsule DAILY (route: oral) Med Classific ation: Central Nervous System Agents clonazepam 0.5 mg tablet 3-04 00:00: 00 Yes [id number] 1 tablet BEDTIME 1 tablet BEDTIME (route: oral) Med Classific ation: Central Nervous System Agents Eliquis 5 mg tablet 3-04 00:00: 00 Yes [id number] 1 tablet 2 TIMES DAILY 1 tablet 2 TIMES DAILY (route: oral) Med Classific ation: Hematolog ical Agents finasteride 5 mg tablet 06-29 00:00: 00 Yes [id number] 1 tablet DAILY 1 tablet DAILY (route: oral) Med Classific ation: Genitouri nary Therapy gabapentin 100 mg capsule 06-29 00:00: 00 Yes [id number] 1 capsule DAILY 1 capsule DAILY (route: oral) Med Classific ation: Central Nervous System Agents gabapentin 300 mg capsule 06-29 00:00: 00 Yes [id number] 1 capsule BEDTIME 1 capsule BEDTIME (route: oral) Med Classific ation: Central Nervous System Agents mirtazapine 45 mg tablet 06-29 00:00: 00 Yes [id number] 1 tablet DAILY 1 tablet DAILY (route: oral) Med Classific ation: Central Nervous System Agents pantoprazol e 40 mg tablet,baltazar yed release 06-29 00:00: 00 10-21 23:59 :00 No [id number] 1 tablet DAILY 1 tablet DAILY (route: oral) Med Classific ation: Gastroint estinal Therapy Agents ropinirole 0.25 mg tablet 06-29 00:00: 00 Yes [id number] 2 tablet DAILY 2 tablet DAILY (route: oral) Med Classific ation: Central Nervous System Agents Rytary 36.25 mg-145 mg capsule,ext ended release 06-29 00:00: 00 Yes [id number] 3 capsule 4 TIMES DAILY 3 capsule 4 TIMES DAILY (route: oral) Med Classific ation: Central Nervous System Agents venlafaxine ER 225 mg tablet,exte nded release 24 hr 06-29 00:00: 00 Yes [id number] 1 tablet DAILY 1 tablet DAILY (route: oral) Med Classific ation: Central Nervous System Agents albuterol sulfate HFA 90 mcg/actuati on aerosol inhaler 06-29 00:00: 00 Yes [id number] 2 puff EVERY 6 HOURS 2 puff EVERY 6 HOURS (route: inhalation ) Med Classific ation: Respirato ry Therapy Agents Breo Ellipta 100 mcg-25 mcg/dose powder for inhalation 3-04 00:00: 00 Yes [id number] 1 inhalat ion DAILY 1 inhalation DAILY (route: inhalation ) Med Classific ation: Respirato ry Therapy Agents pantoprazol e 40 mg tablet,baltazar yed release 3- 00:00: 00 10-21 23:59 :00 No [id number] 1 tablet 2 TIMES DAILY 1 tablet 2 TIMES DAILY (route: oral) Med Classific ation: Gastroint estinal Therapy Agents fluconazole 200 mg tablet - 00:00: 00 Yes [id number] 200 mg DAILY 200 mg DAILY (route: oral) Alternate Route: SUBLINGUA L. Med Classific ation: Anti-Infe ctive Agents Carafate 100 mg/mL oral suspension 10-26 00:00: 00 Yes [id number] 10 mL 4 TIMES DAILY 10 mL 4 TIMES DAILY (route: oral) Med Classific ation: Gastroint estinal Therapy Agents Voquezna 20 mg tablet 10-26 00:00: 00 12-03 00:58 :03.3 47 No [id number] 1 tablet 2 TIMES DAILY 1 tablet 2 TIMES DAILY (route: oral) Med Classific ation: Gastroint estinal Therapy Agents Voquezna 20 mg tablet 10-21 00:00: 00 Yes [id number] 1 tablet 2 TIMES DAILY 1 tablet [...] MAINTAIN SITUATIONAL AWARENESS AND WILL NOTIFY CLINICAL RECEPTION CLERK AND PHYSICIAN/PROVIDER WITH ANY CHANGE IN CONDITION. [code = SKILLED NURSE TO PERFORM ENVIRONMENTAL SAFETY RISK ASSESSMENT AND FALL RISK ASSESSMENT AND PROVIDE INSTRUCTION TO IMPLEMENT ENVIRONMENTAL SAFETY AND FALL PREVENTION STRATEGIES THROUGHOUT THE CERTIFICATION PERIOD. SKILLED NURSE WILL MAINTAIN SITUATIONAL AWARENESS AND WILL NOTIFY CLINICAL RECEPTION CLERK AND PHYSICIAN/PROVIDER WITH ANY CHANGE IN CONDITION.] [...] LASIX PATIENT LIVING SITUATION/CAREGIVER STATUS: [facility] SUMMAR[facility] SKILLED NEED: [...] End Date/Time Encounter Type Admission Type Attending [facility] Care Department Encounter ID Discharge Date Discharge Status Discharge Condition Discharge Reason Percent Goals Met 2025-02-24 00:00:00 2025-04-24 00:00:00 Outpatient RECERTIFIC ATION DEMETRI SLAUGHTER [facility] [id number] 6.25
--- OUTSIDE RECORDS SUMMARY | 2025-04-23 19:00 | XMS_ITS | Clinical Summary ---
Author Organization Unknown Care Team Providers Care Compliance Monitor Name Role Phone DARIAN DANGELO, ANYA Unavailable Unavaila aleisha CHRISTENSEN STOCK CONTROLLER/GARDENER, RENAN Unavailable Unava susie SLAUGHTER RN, DEMETRI Unavailable Unavailable Payers Payer Name Policy Type Policy Number Effective Date Expira tion Date MEDICARE - [facility] CT - PD [id number] Problems Condition Name Condition Details Condition Category [...] 01-11 00:00: 00 01-18 23:59 :00 No [id number] 1 tablet 2 TIMES DAILY 1 tablet 2 TIMES DAILY (route: oral) Med Classific ation: Anti-Infe ctive Agents lactulose 10 gram/15 mL oral solution 01-11 00:00: 00 04-01 23:59 :00 No [id number] 30 g DAILY 30 g DAILY (route: oral) Med Classific ation: Gastroint estinal Therapy Agents Rytary 36.25 mg-145 mg capsule,ext ended release 13 00:00: 00 04-01 23:59 :00 No [id number] 4 capsule 4 TIMES DAILY 4 capsule 4 TIMES DAILY (route: oral) Med Classific ation: Central Nervous System Agents Breo Ellipta 100 mcg-25 mcg/dose powder for inhalation - 00:00: 00 04-01 23:59 :00 No [id number] 1 inhalat ion ONCE DAILY 1 inhalation ONCE DAILY (route: inhalation ) Med Classific ation: Respirato ry Therapy Agents mirtazapine 45 mg tablet 12-12 00:00: 00 04-01 23:59 :00 No [id number] 1 tablet DAILY 1 tablet DAILY (route: oral) Med Classific ation: Central Nervous System Agents docusate sodium 100 mg capsule 16 00:00: 00 04-01 23:59 :00 No [id number] 1 capsule 2 TIMES DAILY 1 capsule 2 TIMES DAILY (route: oral) Med Classific ation: Gastroint estinal Therapy Agents Eliquis 5 mg tablet 10-26 00:00: 00 04-01 23:59 :00 No [id number] 1 tablet 2 TIMES DAILY 1 tablet 2 TIMES DAILY (route: oral) Med Classific ation: Hematolog ical Agents ferrous sulfate 325 mg (65 mg iron) tablet 10-26 00:00: 00 04-01 23:59 :00 No [id number] 1 tablet DAILY 1 tablet DAILY (route: oral) Med Classific ation: Electroly te Balance-N utritiona l Products finasteride 5 mg tablet 10-26 00:00: 00 04-01 23:59 :00 No [id number] 1 tablet DAILY 1 tablet DAILY (route: oral) Med Classific ation: Genitouri nary Therapy furosemide 40 mg tablet 10-26 00:00: 00 04-01 23:59 :00 No [id number] 1 tablet 2 TIMES DAILY 1 tablet 2 TIMES DAILY (route: oral) Med Classific ation: Cardiovas cular Therapy Agents magnesium 400 mg (as magnesium oxide) tablet 10-26 00:00: 00 04-01 23:59 :00 No [id number] 1 tablet DAILY 1 tablet DAILY (route: oral) Med Classific ation: Electroly te Balance-N utritiona l Products prednisolon e acetate 1 % eye drops,suspe nsion 10-26 00:00: 00 04-01 23:59 :00 No [id number] 1 drops 3 TIMES DAILY 1 drops 3 TIMES DAILY (route: ophthalmic (eye)) Med Classific ation: Ophthalmi c Agents ropinirole 0.25 mg tablet 09-28 00:00: 00 04-01 23:59 :00 No [id number] Per instruc tions DIRECTED Per instructio ns DIRECTED (route: oral) Med Classific ation: Central Nervous System Agents venlafaxine ER 225 mg tablet,exte nded release 24 hr 10-26 00:00: 00 04-01 23:59 :00 No [id number] 1 tablet DAILY 1 tablet DAILY (route: oral) Med Classific ation: Central Nervous System Agents Vitamin D3 125 mcg (5,000 unit) tablet 09-28 00:00: 00 04-01 23:59 :00 No [id number] 1 tablet DAILY 1 tablet DAILY (route: oral) Med Classific ation: Electroly te Balance-N utritiona l Products clonazepam 0.5 mg tablet 2023-04 0-11 00:00: 00 04-01 23:59 :00 No [id number] Per instruc tions BEDTIME Per instructio ns BEDTIME (route: oral) Med Classific ation: Central Nervous System Agents acetaminoph en 325 mg tablet 04-30 00:00: 00 06-27 23:59 :00 No [id number] 2 tablet EVERY 4 HOURS 2 tablet EVERY 4 HOURS (route: oral) Med Classific ation: Analgesic , Anti-infl ammatory or Antipyret ic albuterol sulfate HFA 90 mcg/actuati on aerosol inhaler 04-30 00:00: 00 06-27 23:59 :00 No [id number] 2 puff EVERY 6 HOURS 2 puff EVERY 6 HOURS (route: inhalation ) Med Classific ation: Respirato ry Therapy Agents amantadine HCl 100 mg tablet 04-30 00:00: 00 06-27 23:59 :00 No [id number] 1 tablet DAILY 1 tablet DAILY (route: oral) Med Classific ation: Central Nervous System Agents amoxicillin 500 mg capsule 04-30 00:00: 00 06-27 23:59 :00 No [id number] 4 capsule DIRECTED 4 capsule DIRECTED (route: oral) Med Classific ation: Anti-Infe ctive Agents Breo Ellipta 100 mcg-25 mcg/dose powder for inhalation 04-30 00:00: 00 06-27 23:59 :00 No [id number] 1 inhalat ion DAILY 1 inhalation DAILY (route: inhalation ) Med Classific ation: Respirato ry Therapy Agents clonazepam 0.5 mg tablet 04-30 00:00: 00 06-27 23:59 :00 No [id number] 1 tablet BEDTIME 1 tablet BEDTIME (route: oral) Med Classific ation: Central Nervous System Agents docusate sodium 100 mg capsule 04-30 00:00: 00 06-27 23:59 :00 No [id number] 1 capsule 2 TIMES DAILY 1 capsule 2 TIMES DAILY (route: oral) Med Classific ation: Gastroint estinal Therapy Agents Eliquis 5 mg tablet 04-30 00:00: 00 06-27 23:59 :00 No [id number] 1 tablet 2 TIMES DAILY 1 tablet 2 TIMES DAILY (route: oral) Med Classific ation: Hematolog ical Agents finasteride 5 mg tablet 04-30 00:00: 00 06-27 23:59 :00 No [id number] 1 tablet DAILY 1 tablet DAILY (route: oral) Med Classific ation: Genitouri nary Therapy gabapentin 100 mg capsule 04-30 00:00: 00 06-27 23:59 :00 No [id number] 1 capsule DAILY 1 capsule DAILY (route: oral) Med Classific ation: Central Nervous System Agents gabapentin 300 mg capsule - 00:00: 00 06-27 23:59 :00 No [id number] 1 capsule BEDTIME 1 capsule BEDTIME (route: oral) Med Classific ation: Central Nervous System Agents mirtazapine 45 mg tablet - 00:00: 00 06-27 23:59 :00 No [id number] 1 tablet BEDTIME 1 tablet BEDTIME (route: oral) Med Classific ation: Central Nervous System Agents pantoprazol e 40 mg tablet,baltazar yed release - 00:00: 00 06-27 23:59 :00 No [id number] 1 tablet DAILY 1 tablet DAILY (route: oral) Med Classific ation: Gastroint estinal Therapy Agents ropinirole 0.25 mg tablet 04-30 00:00: 00 06-27 23:59 :00 No [id number] 1-4 tablet DIRECTED 1-4 tablet DIRECTED (route: oral) Med Classific ation: Central Nervous System Agents Rytary 36.25 mg-145 mg capsule,ext ended release 04-30 00:00: 00 06-27 23:59 :00 No [id number] 2 capsule 4 TIMES DAILY 2 capsule 4 TIMES DAILY (route: oral) Med Classific ation: Central Nervous System Agents venlafaxine ER 225 mg tablet,exte nded release 24 hr - 00:00: 00 06-27 23:59 :00 No [id number] 1 tablet BEDTIME 1 tablet BEDTIME (route: oral) Med Classific ation: Central Nervous System Agents amantadine HCl 100 mg capsule 3-04 00:00: 00 Yes [id number] 1 capsule DAILY 1 capsule DAILY (route: oral) Med Classific ation: Central Nervous System Agents clonazepam 0.5 mg tablet 3-04 00:00: 00 Yes [id number] 1 tablet BEDTIME 1 tablet BEDTIME (route: oral) Med Classific ation: Central Nervous System Agents Eliquis 5 mg tablet 3-04 00:00: 00 Yes [id number] 1 tablet 2 TIMES DAILY 1 tablet 2 TIMES DAILY (route: oral) Med Classific ation: Hematolog ical Agents finasteride 5 mg tablet 06-29 00:00: 00 Yes [id number] 1 tablet DAILY 1 tablet DAILY (route: oral) Med Classific ation: Genitouri nary Therapy gabapentin 100 mg capsule 06-29 00:00: 00 Yes [id number] 1 capsule DAILY 1 capsule DAILY (route: oral) Med Classific ation: Central Nervous System Agents gabapentin 300 mg capsule 06-29 00:00: 00 Yes [id number] 1 capsule BEDTIME 1 capsule BEDTIME (route: oral) Med Classific ation: Central Nervous System Agents mirtazapine 45 mg tablet 06-29 00:00: 00 Yes [id number] 1 tablet DAILY 1 tablet DAILY (route: oral) Med Classific ation: Central Nervous System Agents pantoprazol e 40 mg tablet,baltazar yed release 06-29 00:00: 00 10-21 23:59 :00 No [id number] 1 tablet DAILY 1 tablet DAILY (route: oral) Med Classific ation: Gastroint estinal Therapy Agents ropinirole 0.25 mg tablet 06-29 00:00: 00 Yes [id number] 2 tablet DAILY 2 tablet DAILY (route: oral) Med Classific ation: Central Nervous System Agents Rytary 36.25 mg-145 mg capsule,ext ended release 06-29 00:00: 00 Yes [id number] 3 capsule 4 TIMES DAILY 3 capsule 4 TIMES DAILY (route: oral) Med Classific ation: Central Nervous System Agents venlafaxine ER 225 mg tablet,exte nded release 24 hr 06-29 00:00: 00 Yes [id number] 1 tablet DAILY 1 tablet DAILY (route: oral) Med Classific ation: Central Nervous System Agents albuterol sulfate HFA 90 mcg/actuati on aerosol inhaler 06-29 00:00: 00 Yes [id number] 2 puff EVERY 6 HOURS 2 puff EVERY 6 HOURS (route: inhalation ) Med Classific ation: Respirato ry Therapy Agents Breo Ellipta 100 mcg-25 mcg/dose powder for inhalation 3-04 00:00: 00 Yes [id number] 1 inhalat ion DAILY 1 inhalation DAILY (route: inhalation ) Med Classific ation: Respirato ry Therapy Agents pantoprazol e 40 mg tablet,baltazar yed release 3- 00:00: 00 10-21 23:59 :00 No [id number] 1 tablet 2 TIMES DAILY 1 tablet 2 TIMES DAILY (route: oral) Med Classific ation: Gastroint estinal Therapy Agents fluconazole 200 mg tablet - 00:00: 00 Yes [id number] 200 mg DAILY 200 mg DAILY (route: oral) Alternate Route: SUBLINGUA L. Med Classific ation: Anti-Infe ctive Agents Carafate 100 mg/mL oral suspension 10-26 00:00: 00 Yes [id number] 10 mL 4 TIMES DAILY 10 mL 4 TIMES DAILY (route: oral) Med Classific ation: Gastroint estinal Therapy Agents Voquezna 20 mg tablet 10-26 00:00: 00 12-03 00:58 :03.3 47 No [id number] 1 tablet 2 TIMES DAILY 1 tablet 2 TIMES DAILY (route: oral) Med Classific ation: Gastroint estinal Therapy Agents Voquezna 20 mg tablet 10-21 00:00: 00 Yes [id number] 1 tablet 2 TIMES DAILY 1 tablet [...] MAINTAIN SITUATIONAL AWARENESS AND WILL NOTIFY CLINICAL INSURANCE CLAIM REPRESENTATIVE AND PHYSICIAN/PROVIDER WITH ANY CHANGE IN CONDITION. [code = SKILLED NURSE TO PERFORM ENVIRONMENTAL SAFETY RISK ASSESSMENT AND FALL RISK ASSESSMENT AND PROVIDE INSTRUCTION TO IMPLEMENT ENVIRONMENTAL SAFETY AND FALL PREVENTION STRATEGIES THROUGHOUT THE CERTIFICATION PERIOD. SKILLED NURSE WILL MAINTAIN SITUATIONAL AWARENESS AND WILL NOTIFY CLINICAL INSURANCE CLAIM REPRESENTATIVE AND PHYSICIAN/PROVIDER WITH ANY CHANGE IN CONDITION.] [...] LASIX PATIENT LIVING SITUATION/CAREGIVER STATUS: [facility] SUMMARIZE SKILLED NEED: DISEASE [...] End Date/Time Encounter Type Admission Type Attending [facility] Care Department Encounter ID Discharge Date Discharge Status Discharge Condition Discharge Reason Percent Goals Met 2025-02-24 00:00:00 2025-04-24 00:00:00 Outpatient RECERTIFIC ATION DMEETRI SLAUGHTER [facility] [id number] 6.25
--- OUTSIDE RECORDS SUMMARY | 2025-04-23 19:00 | XMS_ITS | Clinical Summary ---
Author Organization Unknown Care Team Providers Care Information Receptionist Name Role Phone DARIAN DANGELO, ANYA Unavailable Unavaila aleisha CHRISTENSEN OVERHEAD DOOR TECHNICIAN/SMALL WIND ENERGY INSTALLER, RENAN Unavailable Unava susie SLAUGHTER RN, DEMETRI Unavailable Unavailable Payers Payer Name Policy Type Policy Number Effective Date Expira tion Date MEDICARE - [facility] - PD [id number] Problems Condition Name Condition Details Condition Category [...] 01-11 00:00: 00 01-18 23:59 :00 No [id number] 1 tablet 2 TIMES DAILY 1 tablet 2 TIMES DAILY (route: oral) Med Classific ation: Anti-Infe ctive Agents lactulose 10 gram/15 mL oral solution 01-11 00:00: 00 04-01 23:59 :00 No [id number] 30 g DAILY 30 g DAILY (route: oral) Med Classific ation: Gastroint estinal Therapy Agents Rytary 36.25 mg-145 mg capsule,ext ended release 13 00:00: 00 04-01 23:59 :00 No [id number] 4 capsule 4 TIMES DAILY 4 capsule 4 TIMES DAILY (route: oral) Med Classific ation: Central Nervous System Agents Breo Ellipta 100 mcg-25 mcg/dose powder for inhalation - 00:00: 00 04-01 23:59 :00 No [id number] 1 inhalat ion ONCE DAILY 1 inhalation ONCE DAILY (route: inhalation ) Med Classific ation: Respirato ry Therapy Agents mirtazapine 45 mg tablet 12-12 00:00: 00 04-01 23:59 :00 No [id number] 1 tablet DAILY 1 tablet DAILY (route: oral) Med Classific ation: Central Nervous System Agents docusate sodium 100 mg capsule 16 00:00: 00 04-01 23:59 :00 No [id number] 1 capsule 2 TIMES DAILY 1 capsule 2 TIMES DAILY (route: oral) Med Classific ation: Gastroint estinal Therapy Agents Eliquis 5 mg tablet 10-26 00:00: 00 04-01 23:59 :00 No [id number] 1 tablet 2 TIMES DAILY 1 tablet 2 TIMES DAILY (route: oral) Med Classific ation: Hematolog ical Agents ferrous sulfate 325 mg (65 mg iron) tablet 10-26 00:00: 00 04-01 23:59 :00 No [id number] 1 tablet DAILY 1 tablet DAILY (route: oral) Med Classific ation: Electroly te Balance-N utritiona l Products finasteride 5 mg tablet 10-26 00:00: 00 04-01 23:59 :00 No [id number] 1 tablet DAILY 1 tablet DAILY (route: oral) Med Classific ation: Genitouri nary Therapy furosemide 40 mg tablet 10-26 00:00: 00 04-01 23:59 :00 No [id number] 1 tablet 2 TIMES DAILY 1 tablet 2 TIMES DAILY (route: oral) Med Classific ation: Cardiovas cular Therapy Agents magnesium 400 mg (as magnesium oxide) tablet 10-26 00:00: 00 04-01 23:59 :00 No [id number] 1 tablet DAILY 1 tablet DAILY (route: oral) Med Classific ation: Electroly te Balance-N utritiona l Products prednisolon e acetate 1 % eye drops,suspe nsion 10-26 00:00: 00 04-01 23:59 :00 No [id number] 1 drops 3 TIMES DAILY 1 drops 3 TIMES DAILY (route: ophthalmic (eye)) Med Classific ation: Ophthalmi c Agents ropinirole 0.25 mg tablet 09-28 00:00: 00 04-01 23:59 :00 No [id number] Per instruc tions DIRECTED Per instructio ns DIRECTED (route: oral) Med Classific ation: Central Nervous System Agents venlafaxine ER 225 mg tablet,exte nded release 24 hr 10-26 00:00: 00 04-01 23:59 :00 No [id number] 1 tablet DAILY 1 tablet DAILY (route: oral) Med Classific ation: Central Nervous System Agents Vitamin D3 125 mcg (5,000 unit) tablet 09-28 00:00: 00 04-01 23:59 :00 No [id number] 1 tablet DAILY 1 tablet DAILY (route: oral) Med Classific ation: Electroly te Balance-N utritiona l Products clonazepam 0.5 mg tablet 2023-04 0-11 00:00: 00 04-01 23:59 :00 No [id number] Per instruc tions BEDTIME Per instructio ns BEDTIME (route: oral) Med Classific ation: Central Nervous System Agents acetaminoph en 325 mg tablet 04-30 00:00: 00 06-27 23:59 :00 No [id number] 2 tablet EVERY 4 HOURS 2 tablet EVERY 4 HOURS (route: oral) Med Classific ation: Analgesic , Anti-infl ammatory or Antipyret ic albuterol sulfate HFA 90 mcg/actuati on aerosol inhaler 04-30 00:00: 00 06-27 23:59 :00 No [id number] 2 puff EVERY 6 HOURS 2 puff EVERY 6 HOURS (route: inhalation ) Med Classific ation: Respirato ry Therapy Agents amantadine HCl 100 mg tablet 04-30 00:00: 00 06-27 23:59 :00 No [id number] 1 tablet DAILY 1 tablet DAILY (route: oral) Med Classific ation: Central Nervous System Agents amoxicillin 500 mg capsule 04-30 00:00: 00 06-27 23:59 :00 No [id number] 4 capsule DIRECTED 4 capsule DIRECTED (route: oral) Med Classific ation: Anti-Infe ctive Agents Breo Ellipta 100 mcg-25 mcg/dose powder for inhalation 04-30 00:00: 00 06-27 23:59 :00 No [id number] 1 inhalat ion DAILY 1 inhalation DAILY (route: inhalation ) Med Classific ation: Respirato ry Therapy Agents clonazepam 0.5 mg tablet 04-30 00:00: 00 06-27 23:59 :00 No [id number] 1 tablet BEDTIME 1 tablet BEDTIME (route: oral) Med Classific ation: Central Nervous System Agents docusate sodium 100 mg capsule 04-30 00:00: 00 06-27 23:59 :00 No [id number] 1 capsule 2 TIMES DAILY 1 capsule 2 TIMES DAILY (route: oral) Med Classific ation: Gastroint estinal Therapy Agents Eliquis 5 mg tablet 04-30 00:00: 00 06-27 23:59 :00 No [id number] 1 tablet 2 TIMES DAILY 1 tablet 2 TIMES DAILY (route: oral) Med Classific ation: Hematolog ical Agents finasteride 5 mg tablet 04-30 00:00: 00 06-27 23:59 :00 No [id number] 1 tablet DAILY 1 tablet DAILY (route: oral) Med Classific ation: Genitouri nary Therapy gabapentin 100 mg capsule 04-30 00:00: 00 06-27 23:59 :00 No [id number] 1 capsule DAILY 1 capsule DAILY (route: oral) Med Classific ation: Central Nervous System Agents gabapentin 300 mg capsule - 00:00: 00 06-27 23:59 :00 No [id number] 1 capsule BEDTIME 1 capsule BEDTIME (route: oral) Med Classific ation: Central Nervous System Agents mirtazapine 45 mg tablet - 00:00: 00 06-27 23:59 :00 No [id number] 1 tablet BEDTIME 1 tablet BEDTIME (route: oral) Med Classific ation: Central Nervous System Agents pantoprazol e 40 mg tablet,baltazar yed release - 00:00: 00 06-27 23:59 :00 No [id number] 1 tablet DAILY 1 tablet DAILY (route: oral) Med Classific ation: Gastroint estinal Therapy Agents ropinirole 0.25 mg tablet 04-30 00:00: 00 06-27 23:59 :00 No [id number] 1-4 tablet DIRECTED 1-4 tablet DIRECTED (route: oral) Med Classific ation: Central Nervous System Agents Rytary 36.25 mg-145 mg capsule,ext ended release 04-30 00:00: 00 06-27 23:59 :00 No [id number] 2 capsule 4 TIMES DAILY 2 capsule 4 TIMES DAILY (route: oral) Med Classific ation: Central Nervous System Agents venlafaxine ER 225 mg tablet,exte nded release 24 hr - 00:00: 00 06-27 23:59 :00 No [id number] 1 tablet BEDTIME 1 tablet BEDTIME (route: oral) Med Classific ation: Central Nervous System Agents amantadine HCl 100 mg capsule 3-04 00:00: 00 Yes [id number] 1 capsule DAILY 1 capsule DAILY (route: oral) Med Classific ation: Central Nervous System Agents clonazepam 0.5 mg tablet 3-04 00:00: 00 Yes [id number] 1 tablet BEDTIME 1 tablet BEDTIME (route: oral) Med Classific ation: Central Nervous System Agents Eliquis 5 mg tablet 3-04 00:00: 00 Yes [id number] 1 tablet 2 TIMES DAILY 1 tablet 2 TIMES DAILY (route: oral) Med Classific ation: Hematolog ical Agents finasteride 5 mg tablet 06-29 00:00: 00 Yes [id number] 1 tablet DAILY 1 tablet DAILY (route: oral) Med Classific ation: Genitouri nary Therapy gabapentin 100 mg capsule 06-29 00:00: 00 Yes [id number] 1 capsule DAILY 1 capsule DAILY (route: oral) Med Classific ation: Central Nervous System Agents gabapentin 300 mg capsule 06-29 00:00: 00 Yes [id number] 1 capsule BEDTIME 1 capsule BEDTIME (route: oral) Med Classific ation: Central Nervous System Agents mirtazapine 45 mg tablet 06-29 00:00: 00 Yes [id number] 1 tablet DAILY 1 tablet DAILY (route: oral) Med Classific ation: Central Nervous System Agents pantoprazol e 40 mg tablet,baltazar yed release 06-29 00:00: 00 10-21 23:59 :00 No [id number] 1 tablet DAILY 1 tablet DAILY (route: oral) Med Classific ation: Gastroint estinal Therapy Agents ropinirole 0.25 mg tablet 06-29 00:00: 00 Yes [id number] 2 tablet DAILY 2 tablet DAILY (route: oral) Med Classific ation: Central Nervous System Agents Rytary 36.25 mg-145 mg capsule,ext ended release 06-29 00:00: 00 Yes [id number] 3 capsule 4 TIMES DAILY 3 capsule 4 TIMES DAILY (route: oral) Med Classific ation: Central Nervous System Agents venlafaxine ER 225 mg tablet,exte nded release 24 hr 06-29 00:00: 00 Yes [id number] 1 tablet DAILY 1 tablet DAILY (route: oral) Med Classific ation: Central Nervous System Agents albuterol sulfate HFA 90 mcg/actuati on aerosol inhaler 06-29 00:00: 00 Yes [id number] 2 puff EVERY 6 HOURS 2 puff EVERY 6 HOURS (route: inhalation ) Med Classific ation: Respirato ry Therapy Agents Breo Ellipta 100 mcg-25 mcg/dose powder for inhalation 3-04 00:00: 00 Yes [id number] 1 inhalat ion DAILY 1 inhalation DAILY (route: inhalation ) Med Classific ation: Respirato ry Therapy Agents pantoprazol e 40 mg tablet,baltazar yed release 3- 00:00: 00 10-21 23:59 :00 No [id number] 1 tablet 2 TIMES DAILY 1 tablet 2 TIMES DAILY (route: oral) Med Classific ation: Gastroint estinal Therapy Agents fluconazole 200 mg tablet - 00:00: 00 Yes [id number] 200 mg DAILY 200 mg DAILY (route: oral) Alternate Route: SUBLINGUA L. Med Classific ation: Anti-Infe ctive Agents Carafate 100 mg/mL oral suspension 10-26 00:00: 00 Yes [id number] 10 mL 4 TIMES DAILY 10 mL 4 TIMES DAILY (route: oral) Med Classific ation: Gastroint estinal Therapy Agents Voquezna 20 mg tablet 10-26 00:00: 00 12-03 00:58 :03.3 47 No [id number] 1 tablet 2 TIMES DAILY 1 tablet 2 TIMES DAILY (route: oral) Med Classific ation: Gastroint estinal Therapy Agents Voquezna 20 mg tablet 10-21 00:00: 00 Yes [id number] 1 tablet 2 TIMES DAILY 1 tablet [...] MAINTAIN SITUATIONAL AWARENESS AND WILL NOTIFY CLINICAL HEADER BOSS AND PHYSICIAN/PROVIDER WITH ANY CHANGE IN CONDITION. [code = SKILLED NURSE TO PERFORM ENVIRONMENTAL SAFETY RISK ASSESSMENT AND FALL RISK ASSESSMENT AND PROVIDE INSTRUCTION TO IMPLEMENT ENVIRONMENTAL SAFETY AND FALL PREVENTION STRATEGIES THROUGHOUT THE CERTIFICATION PERIOD. SKILLED NURSE WILL MAINTAIN SITUATIONAL AWARENESS AND WILL NOTIFY CLINICAL HEADER BOSS AND PHYSICIAN/PROVIDER WITH ANY CHANGE IN CONDITION.] [...] LASIX PATIENT LIVING SITUATION/CAREGIVER STATUS: [facility] SKILLED NEED: [...] End Date/Time Encounter Type Admission Type Attending [facility] Care Department Encounter ID Discharge Date Discharge Status Discharge Condition Discharge Reason Percent Goals Met 2025-02-24 00:00:00 2025-04-24 00:00:00 Outpatient RECERTIFIC ATION DEMETRI SLAUGHTER [facility] [id number] 6.25
--- OUTSIDE RECORDS SUMMARY | 2025-04-23 19:00 | XMS_ITS | Clinical Summary ---
Author Organization Unknown Care Team Providers Care Bricklayer Tender Name Role Phone DARIAN DANGELO, ANYA Unavailable Unavaila aleisha CHRISTENSEN DATA GOVERNANCE CONSULTANT/JETTING MACHINE OPERATOR, RENAN Unavailable Unava susie SLAUGHTER RN, DEMETRI Unavailable Unavailable Payers Payer Name Policy Type Policy Number Effective Date Expira tion Date MEDICARE - [facility] - PD [id number] Problems Condition Name Condition Details Condition Category [...] 01-11 00:00: 00 01-18 23:59 :00 No [id number] 1 tablet 2 TIMES DAILY 1 tablet 2 TIMES DAILY (route: oral) Med Classific ation: Anti-Infe ctive Agents lactulose 10 gram/15 mL oral solution 01-11 00:00: 00 04-01 23:59 :00 No [id number] 30 g DAILY 30 g DAILY (route: oral) Med Classific ation: Gastroint estinal Therapy Agents Rytary 36.25 mg-145 mg capsule,ext ended release 13 00:00: 00 04-01 23:59 :00 No [id number] 4 capsule 4 TIMES DAILY 4 capsule 4 TIMES DAILY (route: oral) Med Classific ation: Central Nervous System Agents Breo Ellipta 100 mcg-25 mcg/dose powder for inhalation - 00:00: 00 04-01 23:59 :00 No [id number] 1 inhalat ion ONCE DAILY 1 inhalation ONCE DAILY (route: inhalation ) Med Classific ation: Respirato ry Therapy Agents mirtazapine 45 mg tablet 12-12 00:00: 00 04-01 23:59 :00 No [id number] 1 tablet DAILY 1 tablet DAILY (route: oral) Med Classific ation: Central Nervous System Agents docusate sodium 100 mg capsule 16 00:00: 00 04-01 23:59 :00 No [id number] 1 capsule 2 TIMES DAILY 1 capsule 2 TIMES DAILY (route: oral) Med Classific ation: Gastroint estinal Therapy Agents Eliquis 5 mg tablet 10-26 00:00: 00 04-01 23:59 :00 No [id number] 1 tablet 2 TIMES DAILY 1 tablet 2 TIMES DAILY (route: oral) Med Classific ation: Hematolog ical Agents ferrous sulfate 325 mg (65 mg iron) tablet 10-26 00:00: 00 04-01 23:59 :00 No [id number] 1 tablet DAILY 1 tablet DAILY (route: oral) Med Classific ation: Electroly te Balance-N utritiona l Products finasteride 5 mg tablet 10-26 00:00: 00 04-01 23:59 :00 No [id number] 1 tablet DAILY 1 tablet DAILY (route: oral) Med Classific ation: Genitouri nary Therapy furosemide 40 mg tablet 10-26 00:00: 00 04-01 23:59 :00 No [id number] 1 tablet 2 TIMES DAILY 1 tablet 2 TIMES DAILY (route: oral) Med Classific ation: Cardiovas cular Therapy Agents magnesium 400 mg (as magnesium oxide) tablet 10-26 00:00: 00 04-01 23:59 :00 No [id number] 1 tablet DAILY 1 tablet DAILY (route: oral) Med Classific ation: Electroly te Balance-N utritiona l Products prednisolon e acetate 1 % eye drops,suspe nsion 10-26 00:00: 00 04-01 23:59 :00 No [id number] 1 drops 3 TIMES DAILY 1 drops 3 TIMES DAILY (route: ophthalmic (eye)) Med Classific ation: Ophthalmi c Agents ropinirole 0.25 mg tablet 09-28 00:00: 00 04-01 23:59 :00 No [id number] Per instruc tions DIRECTED Per instructio ns DIRECTED (route: oral) Med Classific ation: Central Nervous System Agents venlafaxine ER 225 mg tablet,exte nded release 24 hr 10-26 00:00: 00 04-01 23:59 :00 No [id number] 1 tablet DAILY 1 tablet DAILY (route: oral) Med Classific ation: Central Nervous System Agents Vitamin D3 125 mcg (5,000 unit) tablet 09-28 00:00: 00 04-01 23:59 :00 No [id number] 1 tablet DAILY 1 tablet DAILY (route: oral) Med Classific ation: Electroly te Balance-N utritiona l Products clonazepam 0.5 mg tablet 2023-04 0-11 00:00: 00 04-01 23:59 :00 No [id number] Per instruc tions BEDTIME Per instructio ns BEDTIME (route: oral) Med Classific ation: Central Nervous System Agents acetaminoph en 325 mg tablet 04-30 00:00: 00 06-27 23:59 :00 No [id number] 2 tablet EVERY 4 HOURS 2 tablet EVERY 4 HOURS (route: oral) Med Classific ation: Analgesic , Anti-infl ammatory or Antipyret ic albuterol sulfate HFA 90 mcg/actuati on aerosol inhaler 04-30 00:00: 00 06-27 23:59 :00 No [id number] 2 puff EVERY 6 HOURS 2 puff EVERY 6 HOURS (route: inhalation ) Med Classific ation: Respirato ry Therapy Agents amantadine HCl 100 mg tablet 04-30 00:00: 00 06-27 23:59 :00 No [id number] 1 tablet DAILY 1 tablet DAILY (route: oral) Med Classific ation: Central Nervous System Agents amoxicillin 500 mg capsule 04-30 00:00: 00 06-27 23:59 :00 No [id number] 4 capsule DIRECTED 4 capsule DIRECTED (route: oral) Med Classific ation: Anti-Infe ctive Agents Breo Ellipta 100 mcg-25 mcg/dose powder for inhalation 04-30 00:00: 00 06-27 23:59 :00 No [id number] 1 inhalat ion DAILY 1 inhalation DAILY (route: inhalation ) Med Classific ation: Respirato ry Therapy Agents clonazepam 0.5 mg tablet 04-30 00:00: 00 06-27 23:59 :00 No [id number] 1 tablet BEDTIME 1 tablet BEDTIME (route: oral) Med Classific ation: Central Nervous System Agents docusate sodium 100 mg capsule 04-30 00:00: 00 06-27 23:59 :00 No [id number] 1 capsule 2 TIMES DAILY 1 capsule 2 TIMES DAILY (route: oral) Med Classific ation: Gastroint estinal Therapy Agents Eliquis 5 mg tablet 04-30 00:00: 00 06-27 23:59 :00 No [id number] 1 tablet 2 TIMES DAILY 1 tablet 2 TIMES DAILY (route: oral) Med Classific ation: Hematolog ical Agents finasteride 5 mg tablet 04-30 00:00: 00 06-27 23:59 :00 No [id number] 1 tablet DAILY 1 tablet DAILY (route: oral) Med Classific ation: Genitouri nary Therapy gabapentin 100 mg capsule 04-30 00:00: 00 06-27 23:59 :00 No [id number] 1 capsule DAILY 1 capsule DAILY (route: oral) Med Classific ation: Central Nervous System Agents gabapentin 300 mg capsule - 00:00: 00 06-27 23:59 :00 No [id number] 1 capsule BEDTIME 1 capsule BEDTIME (route: oral) Med Classific ation: Central Nervous System Agents mirtazapine 45 mg tablet - 00:00: 00 06-27 23:59 :00 No [id number] 1 tablet BEDTIME 1 tablet BEDTIME (route: oral) Med Classific ation: Central Nervous System Agents pantoprazol e 40 mg tablet,baltazar yed release - 00:00: 00 06-27 23:59 :00 No [id number] 1 tablet DAILY 1 tablet DAILY (route: oral) Med Classific ation: Gastroint estinal Therapy Agents ropinirole 0.25 mg tablet 04-30 00:00: 00 06-27 23:59 :00 No [id number] 1-4 tablet DIRECTED 1-4 tablet DIRECTED (route: oral) Med Classific ation: Central Nervous System Agents Rytary 36.25 mg-145 mg capsule,ext ended release 04-30 00:00: 00 06-27 23:59 :00 No [id number] 2 capsule 4 TIMES DAILY 2 capsule 4 TIMES DAILY (route: oral) Med Classific ation: Central Nervous System Agents venlafaxine ER 225 mg tablet,exte nded release 24 hr - 00:00: 00 06-27 23:59 :00 No [id number] 1 tablet BEDTIME 1 tablet BEDTIME (route: oral) Med Classific ation: Central Nervous System Agents amantadine HCl 100 mg capsule 3-04 00:00: 00 Yes [id number] 1 capsule DAILY 1 capsule DAILY (route: oral) Med Classific ation: Central Nervous System Agents clonazepam 0.5 mg tablet 3-04 00:00: 00 Yes [id number] 1 tablet BEDTIME 1 tablet BEDTIME (route: oral) Med Classific ation: Central Nervous System Agents Eliquis 5 mg tablet 3-04 00:00: 00 Yes [id number] 1 tablet 2 TIMES DAILY 1 tablet 2 TIMES DAILY (route: oral) Med Classific ation: Hematolog ical Agents finasteride 5 mg tablet 06-29 00:00: 00 Yes [id number] 1 tablet DAILY 1 tablet DAILY (route: oral) Med Classific ation: Genitouri nary Therapy gabapentin 100 mg capsule 06-29 00:00: 00 Yes [id number] 1 capsule DAILY 1 capsule DAILY (route: oral) Med Classific ation: Central Nervous System Agents gabapentin 300 mg capsule 06-29 00:00: 00 Yes [id number] 1 capsule BEDTIME 1 capsule BEDTIME (route: oral) Med Classific ation: Central Nervous System Agents mirtazapine 45 mg tablet 06-29 00:00: 00 Yes [id number] 1 tablet DAILY 1 tablet DAILY (route: oral) Med Classific ation: Central Nervous System Agents pantoprazol e 40 mg tablet,baltazar yed release 06-29 00:00: 00 10-21 23:59 :00 No [id number] 1 tablet DAILY 1 tablet DAILY (route: oral) Med Classific ation: Gastroint estinal Therapy Agents ropinirole 0.25 mg tablet 06-29 00:00: 00 Yes [id number] 2 tablet DAILY 2 tablet DAILY (route: oral) Med Classific ation: Central Nervous System Agents Rytary 36.25 mg-145 mg capsule,ext ended release 06-29 00:00: 00 Yes [id number] 3 capsule 4 TIMES DAILY 3 capsule 4 TIMES DAILY (route: oral) Med Classific ation: Central Nervous System Agents venlafaxine ER 225 mg tablet,exte nded release 24 hr 06-29 00:00: 00 Yes [id number] 1 tablet DAILY 1 tablet DAILY (route: oral) Med Classific ation: Central Nervous System Agents albuterol sulfate HFA 90 mcg/actuati on aerosol inhaler 06-29 00:00: 00 Yes [id number] 2 puff EVERY 6 HOURS 2 puff EVERY 6 HOURS (route: inhalation ) Med Classific ation: Respirato ry Therapy Agents Breo Ellipta 100 mcg-25 mcg/dose powder for inhalation 3-04 00:00: 00 Yes [id number] 1 inhalat ion DAILY 1 inhalation DAILY (route: inhalation ) Med Classific ation: Respirato ry Therapy Agents pantoprazol e 40 mg tablet,baltazar yed release 3- 00:00: 00 10-21 23:59 :00 No [id number] 1 tablet 2 TIMES DAILY 1 tablet 2 TIMES DAILY (route: oral) Med Classific ation: Gastroint estinal Therapy Agents fluconazole 200 mg tablet - 00:00: 00 Yes [id number] 200 mg DAILY 200 mg DAILY (route: oral) Alternate Route: SUBLINGUA L. Med Classific ation: Anti-Infe ctive Agents Carafate 100 mg/mL oral suspension 10-26 00:00: 00 Yes [id number] 10 mL 4 TIMES DAILY 10 mL 4 TIMES DAILY (route: oral) Med Classific ation: Gastroint estinal Therapy Agents Voquezna 20 mg tablet 10-26 00:00: 00 12-03 00:58 :03.3 47 No [id number] 1 tablet 2 TIMES DAILY 1 tablet 2 TIMES DAILY (route: oral) Med Classific ation: Gastroint estinal Therapy Agents Voquezna 20 mg tablet 10-21 00:00: 00 Yes [id number] 1 tablet 2 TIMES DAILY 1 tablet [...] MAINTAIN SITUATIONAL AWARENESS AND WILL NOTIFY CLINICAL TRACER POWDER BLENDER AND PHYSICIAN/PROVIDER WITH ANY CHANGE IN CONDITION. [code = SKILLED NURSE TO PERFORM ENVIRONMENTAL SAFETY RISK ASSESSMENT AND FALL RISK ASSESSMENT AND PROVIDE INSTRUCTION TO IMPLEMENT ENVIRONMENTAL SAFETY AND FALL PREVENTION STRATEGIES THROUGHOUT THE CERTIFICATION PERIOD. SKILLED NURSE WILL MAINTAIN SITUATIONAL AWARENESS AND WILL NOTIFY CLINICAL TRACER POWDER BLENDER AND PHYSICIAN/PROVIDER WITH ANY CHANGE IN CONDITION.] [...] LASIX PATIENT LIVING SITUATION/CAREGIVER STATUS: [facility] WITH [facility]SE SUMMARIZE SKILLED NEED: DISEASE [...] End Date/Time Encounter Type Admission Type Attending [facility] Care Department Encounter ID Discharge Date Discharge Status Discharge Condition Discharge Reason Percent Goals Met 2025-02-24 00:00:00 2025-04-24 00:00:00 Outpatient RECERTIFIC ATION DEMETRI SLAUGHTER [facility] [id number] 6.25
--- OUTSIDE RECORDS SUMMARY | 2025-04-23 19:00 | XMS_ITS | Clinical Summary ---
Author Organization Unknown Care Team Providers Care Clerical Production Worker Name Role Phone DARIAN DANGELO, ANYA Unavailable Unavaila aleisha CHRISTENSEN COLLATERAL SPECIALIST/RETAIL SPECIAL EVENT ASSOCIATE, RENAN Unavailable Unava susie SLAUGHTER RN, DEMETRI Unavailable Unavailable Payers Payer Name Policy Type Policy Number Effective Date Expira tion Date MEDICARE - [facility] [place] - PD [id number] Problems Condition Name Condition Details Condition Category [...] 01-11 00:00: 00 01-18 23:59 :00 No [id number] 1 tablet 2 TIMES DAILY 1 tablet 2 TIMES DAILY (route: oral) Med Classific ation: Anti-Infe ctive Agents lactulose 10 gram/15 mL oral solution 01-11 00:00: 00 04-01 23:59 :00 No [id number] 30 g DAILY 30 g DAILY (route: oral) Med Classific ation: Gastroint estinal Therapy Agents Rytary 36.25 mg-145 mg capsule,ext ended release 13 00:00: 00 04-01 23:59 :00 No [id number] 4 capsule 4 TIMES DAILY 4 capsule 4 TIMES DAILY (route: oral) Med Classific ation: Central Nervous System Agents Breo Ellipta 100 mcg-25 mcg/dose powder for inhalation - 00:00: 00 04-01 23:59 :00 No [id number] 1 inhalat ion ONCE DAILY 1 inhalation ONCE DAILY (route: inhalation ) Med Classific ation: Respirato ry Therapy Agents mirtazapine 45 mg tablet 12-12 00:00: 00 04-01 23:59 :00 No [id number] 1 tablet DAILY 1 tablet DAILY (route: oral) Med Classific ation: Central Nervous System Agents docusate sodium 100 mg capsule 16 00:00: 00 04-01 23:59 :00 No [id number] 1 capsule 2 TIMES DAILY 1 capsule 2 TIMES DAILY (route: oral) Med Classific ation: Gastroint estinal Therapy Agents Eliquis 5 mg tablet 10-26 00:00: 00 04-01 23:59 :00 No [id number] 1 tablet 2 TIMES DAILY 1 tablet 2 TIMES DAILY (route: oral) Med Classific ation: Hematolog ical Agents ferrous sulfate 325 mg (65 mg iron) tablet 10-26 00:00: 00 04-01 23:59 :00 No [id number] 1 tablet DAILY 1 tablet DAILY (route: oral) Med Classific ation: Electroly te Balance-N utritiona l Products finasteride 5 mg tablet 10-26 00:00: 00 04-01 23:59 :00 No [id number] 1 tablet DAILY 1 tablet DAILY (route: oral) Med Classific ation: Genitouri nary Therapy furosemide 40 mg tablet 10-26 00:00: 00 04-01 23:59 :00 No [id number] 1 tablet 2 TIMES DAILY 1 tablet 2 TIMES DAILY (route: oral) Med Classific ation: Cardiovas cular Therapy Agents magnesium 400 mg (as magnesium oxide) tablet 10-26 00:00: 00 04-01 23:59 :00 No [id number] 1 tablet DAILY 1 tablet DAILY (route: oral) Med Classific ation: Electroly te Balance-N utritiona l Products prednisolon e acetate 1 % eye drops,suspe nsion 10-26 00:00: 00 04-01 23:59 :00 No [id number] 1 drops 3 TIMES DAILY 1 drops 3 TIMES DAILY (route: ophthalmic (eye)) Med Classific ation: Ophthalmi c Agents ropinirole 0.25 mg tablet 09-28 00:00: 00 04-01 23:59 :00 No [id number] Per instruc tions DIRECTED Per instructio ns DIRECTED (route: oral) Med Classific ation: Central Nervous System Agents venlafaxine ER 225 mg tablet,exte nded release 24 hr 10-26 00:00: 00 04-01 23:59 :00 No [id number] 1 tablet DAILY 1 tablet DAILY (route: oral) Med Classific ation: Central Nervous System Agents Vitamin D3 125 mcg (5,000 unit) tablet 09-28 00:00: 00 04-01 23:59 :00 No [id number] 1 tablet DAILY 1 tablet DAILY (route: oral) Med Classific ation: Electroly te Balance-N utritiona l Products clonazepam 0.5 mg tablet 2023-04 0-11 00:00: 00 04-01 23:59 :00 No [id number] Per instruc tions BEDTIME Per instructio ns BEDTIME (route: oral) Med Classific ation: Central Nervous System Agents acetaminoph en 325 mg tablet 04-30 00:00: 00 06-27 23:59 :00 No [id number] 2 tablet EVERY 4 HOURS 2 tablet EVERY 4 HOURS (route: oral) Med Classific ation: Analgesic , Anti-infl ammatory or Antipyret ic albuterol sulfate HFA 90 mcg/actuati on aerosol inhaler 04-30 00:00: 00 06-27 23:59 :00 No [id number] 2 puff EVERY 6 HOURS 2 puff EVERY 6 HOURS (route: inhalation ) Med Classific ation: Respirato ry Therapy Agents amantadine HCl 100 mg tablet 04-30 00:00: 00 06-27 23:59 :00 No [id number] 1 tablet DAILY 1 tablet DAILY (route: oral) Med Classific ation: Central Nervous System Agents amoxicillin 500 mg capsule 04-30 00:00: 00 06-27 23:59 :00 No [id number] 4 capsule DIRECTED 4 capsule DIRECTED (route: oral) Med Classific ation: Anti-Infe ctive Agents Breo Ellipta 100 mcg-25 mcg/dose powder for inhalation 04-30 00:00: 00 06-27 23:59 :00 No [id number] 1 inhalat ion DAILY 1 inhalation DAILY (route: inhalation ) Med Classific ation: Respirato ry Therapy Agents clonazepam 0.5 mg tablet 04-30 00:00: 00 06-27 23:59 :00 No [id number] 1 tablet BEDTIME 1 tablet BEDTIME (route: oral) Med Classific ation: Central Nervous System Agents docusate sodium 100 mg capsule 04-30 00:00: 00 06-27 23:59 :00 No [id number] 1 capsule 2 TIMES DAILY 1 capsule 2 TIMES DAILY (route: oral) Med Classific ation: Gastroint estinal Therapy Agents Eliquis 5 mg tablet 04-30 00:00: 00 06-27 23:59 :00 No [id number] 1 tablet 2 TIMES DAILY 1 tablet 2 TIMES DAILY (route: oral) Med Classific ation: Hematolog ical Agents finasteride 5 mg tablet 04-30 00:00: 00 06-27 23:59 :00 No [id number] 1 tablet DAILY 1 tablet DAILY (route: oral) Med Classific ation: Genitouri nary Therapy gabapentin 100 mg capsule 04-30 00:00: 00 06-27 23:59 :00 No [id number] 1 capsule DAILY 1 capsule DAILY (route: oral) Med Classific ation: Central Nervous System Agents gabapentin 300 mg capsule - 00:00: 00 06-27 23:59 :00 No [id number] 1 capsule BEDTIME 1 capsule BEDTIME (route: oral) Med Classific ation: Central Nervous System Agents mirtazapine 45 mg tablet - 00:00: 00 06-27 23:59 :00 No [id number] 1 tablet BEDTIME 1 tablet BEDTIME (route: oral) Med Classific ation: Central Nervous System Agents pantoprazol e 40 mg tablet,baltazar yed release - 00:00: 00 06-27 23:59 :00 No [id number] 1 tablet DAILY 1 tablet DAILY (route: oral) Med Classific ation: Gastroint estinal Therapy Agents ropinirole 0.25 mg tablet 04-30 00:00: 00 06-27 23:59 :00 No [id number] 1-4 tablet DIRECTED 1-4 tablet DIRECTED (route: oral) Med Classific ation: Central Nervous System Agents Rytary 36.25 mg-145 mg capsule,ext ended release 04-30 00:00: 00 06-27 23:59 :00 No [id number] 2 capsule 4 TIMES DAILY 2 capsule 4 TIMES DAILY (route: oral) Med Classific ation: Central Nervous System Agents venlafaxine ER 225 mg tablet,exte nded release 24 hr - 00:00: 00 06-27 23:59 :00 No [id number] 1 tablet BEDTIME 1 tablet BEDTIME (route: oral) Med Classific ation: Central Nervous System Agents amantadine HCl 100 mg capsule 3-04 00:00: 00 Yes [id number] 1 capsule DAILY 1 capsule DAILY (route: oral) Med Classific ation: Central Nervous System Agents clonazepam 0.5 mg tablet 3-04 00:00: 00 Yes [id number] 1 tablet BEDTIME 1 tablet BEDTIME (route: oral) Med Classific ation: Central Nervous System Agents Eliquis 5 mg tablet 3-04 00:00: 00 Yes [id number] 1 tablet 2 TIMES DAILY 1 tablet 2 TIMES DAILY (route: oral) Med Classific ation: Hematolog ical Agents finasteride 5 mg tablet 06-29 00:00: 00 Yes [id number] 1 tablet DAILY 1 tablet DAILY (route: oral) Med Classific ation: Genitouri nary Therapy gabapentin 100 mg capsule 06-29 00:00: 00 Yes [id number] 1 capsule DAILY 1 capsule DAILY (route: oral) Med Classific ation: Central Nervous System Agents gabapentin 300 mg capsule 06-29 00:00: 00 Yes [id number] 1 capsule BEDTIME 1 capsule BEDTIME (route: oral) Med Classific ation: Central Nervous System Agents mirtazapine 45 mg tablet 06-29 00:00: 00 Yes [id number] 1 tablet DAILY 1 tablet DAILY (route: oral) Med Classific ation: Central Nervous System Agents pantoprazol e 40 mg tablet,baltazar yed release 06-29 00:00: 00 10-21 23:59 :00 No [id number] 1 tablet DAILY 1 tablet DAILY (route: oral) Med Classific ation: Gastroint estinal Therapy Agents ropinirole 0.25 mg tablet 06-29 00:00: 00 Yes [id number] 2 tablet DAILY 2 tablet DAILY (route: oral) Med Classific ation: Central Nervous System Agents Rytary 36.25 mg-145 mg capsule,ext ended release 06-29 00:00: 00 Yes [id number] 3 capsule 4 TIMES DAILY 3 capsule 4 TIMES DAILY (route: oral) Med Classific ation: Central Nervous System Agents venlafaxine ER 225 mg tablet,exte nded release 24 hr 06-29 00:00: 00 Yes [id number] 1 tablet DAILY 1 tablet DAILY (route: oral) Med Classific ation: Central Nervous System Agents albuterol sulfate HFA 90 mcg/actuati on aerosol inhaler 06-29 00:00: 00 Yes [id number] 2 puff EVERY 6 HOURS 2 puff EVERY 6 HOURS (route: inhalation ) Med Classific ation: Respirato ry Therapy Agents Breo Ellipta 100 mcg-25 mcg/dose powder for inhalation 3-04 00:00: 00 Yes [id number] 1 inhalat ion DAILY 1 inhalation DAILY (route: inhalation ) Med Classific ation: Respirato ry Therapy Agents pantoprazol e 40 mg tablet,baltazar yed release 3- 00:00: 00 10-21 23:59 :00 No [id number] 1 tablet 2 TIMES DAILY 1 tablet 2 TIMES DAILY (route: oral) Med Classific ation: Gastroint estinal Therapy Agents fluconazole 200 mg tablet - 00:00: 00 Yes [id number] 200 mg DAILY 200 mg DAILY (route: oral) Alternate Route: SUBLINGUA L. Med Classific ation: Anti-Infe ctive Agents Carafate 100 mg/mL oral suspension 10-26 00:00: 00 Yes [id number] 10 mL 4 TIMES DAILY 10 mL 4 TIMES DAILY (route: oral) Med Classific ation: Gastroint estinal Therapy Agents Voquezna 20 mg tablet 10-26 00:00: 00 12-03 00:58 :03.3 47 No [id number] 1 tablet 2 TIMES DAILY 1 tablet 2 TIMES DAILY (route: oral) Med Classific ation: Gastroint estinal Therapy Agents Voquezna 20 mg tablet 10-21 00:00: 00 Yes [id number] 1 tablet 2 TIMES DAILY 1 tablet [...] MAINTAIN SITUATIONAL AWARENESS AND WILL NOTIFY CLINICAL WATER SYSTEM OPERATOR AND PHYSICIAN/PROVIDER WITH ANY CHANGE IN CONDITION. [code = SKILLED NURSE TO PERFORM ENVIRONMENTAL SAFETY RISK ASSESSMENT AND FALL RISK ASSESSMENT AND PROVIDE INSTRUCTION TO IMPLEMENT ENVIRONMENTAL SAFETY AND FALL PREVENTION STRATEGIES THROUGHOUT THE CERTIFICATION PERIOD. SKILLED NURSE WILL MAINTAIN SITUATIONAL AWARENESS AND WILL NOTIFY CLINICAL WATER SYSTEM OPERATOR AND PHYSICIAN/PROVIDER WITH ANY CHANGE IN [...] LASIX PATIENT LIVING SITUATION/CAREGIVER STATUS: [facility] SUMMAR[facility] SKILLED NEED: DISEASE [...] 2025-04-24 00:00:00 Outpatient RECERTIFIC ATION DEMETRI SLAUGHTER [facility] [id number] 6.25
--- OUTSIDE RECORDS SUMMARY | 2025-04-23 19:00 | XMS_ITS | Clinical Summary ---
Author Organization Unknown Care Team Providers Care Jigger Artisan Name Role Phone DARIAN DANGELO, ANYA Unavailable Unavaila aleisha CHRISTENSEN CARGO SERVICE AGENT/OFFAL ICER POULTRY, RENAN Unavailable Unava susie SLAUGHTER RN, DEMETRI Unavailable Unavailable Payers Payer Name Policy Type Policy Number Effective Date Expira tion Date MEDICARE - [facility] [place] - PD [id number] Problems Condition Name Condition Details Condition Category [...] 01-11 00:00: 00 01-18 23:59 :00 No [id number] 1 tablet 2 TIMES DAILY 1 tablet 2 TIMES DAILY (route: oral) Med Classific ation: Anti-Infe ctive Agents lactulose 10 gram/15 mL oral solution 01-11 00:00: 00 04-01 23:59 :00 No [id number] 30 g DAILY 30 g DAILY (route: oral) Med Classific ation: Gastroint estinal Therapy Agents Rytary 36.25 mg-145 mg capsule,ext ended release 13 00:00: 00 04-01 23:59 :00 No [id number] 4 capsule 4 TIMES DAILY 4 capsule 4 TIMES DAILY (route: oral) Med Classific ation: Central Nervous System Agents Breo Ellipta 100 mcg-25 mcg/dose powder for inhalation - 00:00: 00 04-01 23:59 :00 No [id number] 1 inhalat ion ONCE DAILY 1 inhalation ONCE DAILY (route: inhalation ) Med Classific ation: Respirato ry Therapy Agents mirtazapine 45 mg tablet 12-12 00:00: 00 04-01 23:59 :00 No [id number] 1 tablet DAILY 1 tablet DAILY (route: oral) Med Classific ation: Central Nervous System Agents docusate sodium 100 mg capsule 16 00:00: 00 04-01 23:59 :00 No [id number] 1 capsule 2 TIMES DAILY 1 capsule 2 TIMES DAILY (route: oral) Med Classific ation: Gastroint estinal Therapy Agents Eliquis 5 mg tablet 10-26 00:00: 00 04-01 23:59 :00 No [id number] 1 tablet 2 TIMES DAILY 1 tablet 2 TIMES DAILY (route: oral) Med Classific ation: Hematolog ical Agents ferrous sulfate 325 mg (65 mg iron) tablet 10-26 00:00: 00 04-01 23:59 :00 No [id number] 1 tablet DAILY 1 tablet DAILY (route: oral) Med Classific ation: Electroly te Balance-N utritiona l Products finasteride 5 mg tablet 10-26 00:00: 00 04-01 23:59 :00 No [id number] 1 tablet DAILY 1 tablet DAILY (route: oral) Med Classific ation: Genitouri nary Therapy furosemide 40 mg tablet 10-26 00:00: 00 04-01 23:59 :00 No [id number] 1 tablet 2 TIMES DAILY 1 tablet 2 TIMES DAILY (route: oral) Med Classific ation: Cardiovas cular Therapy Agents magnesium 400 mg (as magnesium oxide) tablet 10-26 00:00: 00 04-01 23:59 :00 No [id number] 1 tablet DAILY 1 tablet DAILY (route: oral) Med Classific ation: Electroly te Balance-N utritiona l Products prednisolon e acetate 1 % eye drops,suspe nsion 10-26 00:00: 00 04-01 23:59 :00 No [id number] 1 drops 3 TIMES DAILY 1 drops 3 TIMES DAILY (route: ophthalmic (eye)) Med Classific ation: Ophthalmi c Agents ropinirole 0.25 mg tablet 09-28 00:00: 00 04-01 23:59 :00 No [id number] Per instruc tions DIRECTED Per instructio ns DIRECTED (route: oral) Med Classific ation: Central Nervous System Agents venlafaxine ER 225 mg tablet,exte nded release 24 hr 10-26 00:00: 00 04-01 23:59 :00 No [id number] 1 tablet DAILY 1 tablet DAILY (route: oral) Med Classific ation: Central Nervous System Agents Vitamin D3 125 mcg (5,000 unit) tablet 09-28 00:00: 00 04-01 23:59 :00 No [id number] 1 tablet DAILY 1 tablet DAILY (route: oral) Med Classific ation: Electroly te Balance-N utritiona l Products clonazepam 0.5 mg tablet 2023-04 0-11 00:00: 00 04-01 23:59 :00 No [id number] Per instruc tions BEDTIME Per instructio ns BEDTIME (route: oral) Med Classific ation: Central Nervous System Agents acetaminoph en 325 mg tablet 04-30 00:00: 00 06-27 23:59 :00 No [id number] 2 tablet EVERY 4 HOURS 2 tablet EVERY 4 HOURS (route: oral) Med Classific ation: Analgesic , Anti-infl ammatory or Antipyret ic albuterol sulfate HFA 90 mcg/actuati on aerosol inhaler 04-30 00:00: 00 06-27 23:59 :00 No [id number] 2 puff EVERY 6 HOURS 2 puff EVERY 6 HOURS (route: inhalation ) Med Classific ation: Respirato ry Therapy Agents amantadine HCl 100 mg tablet 04-30 00:00: 00 06-27 23:59 :00 No [id number] 1 tablet DAILY 1 tablet DAILY (route: oral) Med Classific ation: Central Nervous System Agents amoxicillin 500 mg capsule 04-30 00:00: 00 06-27 23:59 :00 No [id number] 4 capsule DIRECTED 4 capsule DIRECTED (route: oral) Med Classific ation: Anti-Infe ctive Agents Breo Ellipta 100 mcg-25 mcg/dose powder for inhalation 04-30 00:00: 00 06-27 23:59 :00 No [id number] 1 inhalat ion DAILY 1 inhalation DAILY (route: inhalation ) Med Classific ation: Respirato ry Therapy Agents clonazepam 0.5 mg tablet 04-30 00:00: 00 06-27 23:59 :00 No [id number] 1 tablet BEDTIME 1 tablet BEDTIME (route: oral) Med Classific ation: Central Nervous System Agents docusate sodium 100 mg capsule 04-30 00:00: 00 06-27 23:59 :00 No [id number] 1 capsule 2 TIMES DAILY 1 capsule 2 TIMES DAILY (route: oral) Med Classific ation: Gastroint estinal Therapy Agents Eliquis 5 mg tablet 04-30 00:00: 00 06-27 23:59 :00 No [id number] 1 tablet 2 TIMES DAILY 1 tablet 2 TIMES DAILY (route: oral) Med Classific ation: Hematolog ical Agents finasteride 5 mg tablet 04-30 00:00: 00 06-27 23:59 :00 No [id number] 1 tablet DAILY 1 tablet DAILY (route: oral) Med Classific ation: Genitouri nary Therapy gabapentin 100 mg capsule 04-30 00:00: 00 06-27 23:59 :00 No [id number] 1 capsule DAILY 1 capsule DAILY (route: oral) Med Classific ation: Central Nervous System Agents gabapentin 300 mg capsule - 00:00: 00 06-27 23:59 :00 No [id number] 1 capsule BEDTIME 1 capsule BEDTIME (route: oral) Med Classific ation: Central Nervous System Agents mirtazapine 45 mg tablet - 00:00: 00 06-27 23:59 :00 No [id number] 1 tablet BEDTIME 1 tablet BEDTIME (route: oral) Med Classific ation: Central Nervous System Agents pantoprazol e 40 mg tablet,baltazar yed release - 00:00: 00 06-27 23:59 :00 No [id number] 1 tablet DAILY 1 tablet DAILY (route: oral) Med Classific ation: Gastroint estinal Therapy Agents ropinirole 0.25 mg tablet 04-30 00:00: 00 06-27 23:59 :00 No [id number] 1-4 tablet DIRECTED 1-4 tablet DIRECTED (route: oral) Med Classific ation: Central Nervous System Agents Rytary 36.25 mg-145 mg capsule,ext ended release 04-30 00:00: 00 06-27 23:59 :00 No [id number] 2 capsule 4 TIMES DAILY 2 capsule 4 TIMES DAILY (route: oral) Med Classific ation: Central Nervous System Agents venlafaxine ER 225 mg tablet,exte nded release 24 hr - 00:00: 00 06-27 23:59 :00 No [id number] 1 tablet BEDTIME 1 tablet BEDTIME (route: oral) Med Classific ation: Central Nervous System Agents amantadine HCl 100 mg capsule 3-04 00:00: 00 Yes [id number] 1 capsule DAILY 1 capsule DAILY (route: oral) Med Classific ation: Central Nervous System Agents clonazepam 0.5 mg tablet 3-04 00:00: 00 Yes [id number] 1 tablet BEDTIME 1 tablet BEDTIME (route: oral) Med Classific ation: Central Nervous System Agents Eliquis 5 mg tablet 3-04 00:00: 00 Yes [id number] 1 tablet 2 TIMES DAILY 1 tablet 2 TIMES DAILY (route: oral) Med Classific ation: Hematolog ical Agents finasteride 5 mg tablet 06-29 00:00: 00 Yes [id number] 1 tablet DAILY 1 tablet DAILY (route: oral) Med Classific ation: Genitouri nary Therapy gabapentin 100 mg capsule 06-29 00:00: 00 Yes [id number] 1 capsule DAILY 1 capsule DAILY (route: oral) Med Classific ation: Central Nervous System Agents gabapentin 300 mg capsule 06-29 00:00: 00 Yes [id number] 1 capsule BEDTIME 1 capsule BEDTIME (route: oral) Med Classific ation: Central Nervous System Agents mirtazapine 45 mg tablet 06-29 00:00: 00 Yes [id number] 1 tablet DAILY 1 tablet DAILY (route: oral) Med Classific ation: Central Nervous System Agents pantoprazol e 40 mg tablet,baltazar yed release 06-29 00:00: 00 10-21 23:59 :00 No [id number] 1 tablet DAILY 1 tablet DAILY (route: oral) Med Classific ation: Gastroint estinal Therapy Agents ropinirole 0.25 mg tablet 06-29 00:00: 00 Yes [id number] 2 tablet DAILY 2 tablet DAILY (route: oral) Med Classific ation: Central Nervous System Agents Rytary 36.25 mg-145 mg capsule,ext ended release 06-29 00:00: 00 Yes [id number] 3 capsule 4 TIMES DAILY 3 capsule 4 TIMES DAILY (route: oral) Med Classific ation: Central Nervous System Agents venlafaxine ER 225 mg tablet,exte nded release 24 hr 06-29 00:00: 00 Yes [id number] 1 tablet DAILY 1 tablet DAILY (route: oral) Med Classific ation: Central Nervous System Agents albuterol sulfate HFA 90 mcg/actuati on aerosol inhaler 06-29 00:00: 00 Yes [id number] 2 puff EVERY 6 HOURS 2 puff EVERY 6 HOURS (route: inhalation ) Med Classific ation: Respirato ry Therapy Agents Breo Ellipta 100 mcg-25 mcg/dose powder for inhalation 3-04 00:00: 00 Yes [id number] 1 inhalat ion DAILY 1 inhalation DAILY (route: inhalation ) Med Classific ation: Respirato ry Therapy Agents pantoprazol e 40 mg tablet,baltazar yed release 3- 00:00: 00 10-21 23:59 :00 No [id number] 1 tablet 2 TIMES DAILY 1 tablet 2 TIMES DAILY (route: oral) Med Classific ation: Gastroint estinal Therapy Agents fluconazole 200 mg tablet - 00:00: 00 Yes [id number] 200 mg DAILY 200 mg DAILY (route: oral) Alternate Route: SUBLINGUA L. Med Classific ation: Anti-Infe ctive Agents Carafate 100 mg/mL oral suspension 10-26 00:00: 00 Yes [id number] 10 mL 4 TIMES DAILY 10 mL 4 TIMES DAILY (route: oral) Med Classific ation: Gastroint estinal Therapy Agents Voquezna 20 mg tablet 10-26 00:00: 00 12-03 00:58 :03.3 47 No [id number] 1 tablet 2 TIMES DAILY 1 tablet 2 TIMES DAILY (route: oral) Med Classific ation: Gastroint estinal Therapy Agents Voquezna 20 mg tablet 10-21 00:00: 00 Yes [id number] 1 tablet 2 TIMES DAILY 1 tablet [...] MAINTAIN SITUATIONAL AWARENESS AND WILL NOTIFY CLINICAL BUDGET TECHNICIAN AND PHYSICIAN/PROVIDER WITH ANY CHANGE IN CONDITION. [code = SKILLED NURSE TO PERFORM ENVIRONMENTAL SAFETY RISK ASSESSMENT AND FALL RISK ASSESSMENT AND PROVIDE INSTRUCTION TO IMPLEMENT ENVIRONMENTAL SAFETY AND FALL PREVENTION STRATEGIES THROUGHOUT THE CERTIFICATION PERIOD. SKILLED NURSE WILL MAINTAIN SITUATIONAL AWARENESS AND WILL NOTIFY CLINICAL BUDGET TECHNICIAN AND PHYSICIAN/PROVIDER WITH ANY CHANGE IN [...] PATIENT LIVING SITUATION/CAREGIVER STATUS[facility] SUMMAR[facility] SKILLED NEED: DISEASE [...] 2025-04-24 00:00:00 Outpatient RECERTIFIC ATION DEMETRI SLAUGHTER [facility] [id number] 6.25
--- OUTSIDE RECORDS SUMMARY | 2025-04-23 19:00 | XMS_ITS | Clinical Summary ---
Author Organization Unknown Care Team Providers Care Sweat Box Attendant Name Role Phone DARIAN DANGELO, ANYA Unavailable Unavaila aleisha CHRISTENSEN ART OBJECTS SUPERVISOR/IT TECHNICIAN, RENAN Unavailable Unava susie SLAUGHTER RN, DEMETRI Unavailable Unavailable Payers Payer Name Policy Type Policy Number Effective Date Expira tion Date MEDICARE - [facility] - PD [id number] Problems Condition Name Condition Details Condition Category [...] OF URINARY DEVICE Active 04-28 00:00: 00 HALF-WAY (CURRENT) USE OF ANTICOAGULAN TS Active 04-28 [...] 01-11 00:00: 00 01-18 23:59 :00 No [id number] 1 tablet 2 TIMES DAILY 1 tablet 2 TIMES DAILY (route: oral) Med Classific ation: Anti-Infe ctive Agents lactulose 10 gram/15 mL oral solution 01-11 00:00: 00 04-01 23:59 :00 No [id number] 30 g DAILY 30 g DAILY (route: oral) Med Classific ation: Gastroint estinal Therapy Agents Rytary 36.25 mg-145 mg capsule,ext ended release 13 00:00: 00 04-01 23:59 :00 No [id number] 4 capsule 4 TIMES DAILY 4 capsule 4 TIMES DAILY (route: oral) Med Classific ation: Central Nervous System Agents Breo Ellipta 100 mcg-25 mcg/dose powder for inhalation - 00:00: 00 04-01 23:59 :00 No [id number] 1 inhalat ion ONCE DAILY 1 inhalation ONCE DAILY (route: inhalation ) Med Classific ation: Respirato ry Therapy Agents mirtazapine 45 mg tablet 12-12 00:00: 00 04-01 23:59 :00 No [id number] 1 tablet DAILY 1 tablet DAILY (route: oral) Med Classific ation: Central Nervous System Agents docusate sodium 100 mg capsule 16 00:00: 00 04-01 23:59 :00 No [id number] 1 capsule 2 TIMES DAILY 1 capsule 2 TIMES DAILY (route: oral) Med Classific ation: Gastroint estinal Therapy Agents Eliquis 5 mg tablet 10-26 00:00: 00 04-01 23:59 :00 No [id number] 1 tablet 2 TIMES DAILY 1 tablet 2 TIMES DAILY (route: oral) Med Classific ation: Hematolog ical Agents ferrous sulfate 325 mg (65 mg iron) tablet 10-26 00:00: 00 04-01 23:59 :00 No [id number] 1 tablet DAILY 1 tablet DAILY (route: oral) Med Classific ation: Electroly te Balance-N utritiona l Products finasteride 5 mg tablet 10-26 00:00: 00 04-01 23:59 :00 No [id number] 1 tablet DAILY 1 tablet DAILY (route: oral) Med Classific ation: Genitouri nary Therapy furosemide 40 mg tablet 10-26 00:00: 00 04-01 23:59 :00 No [id number] 1 tablet 2 TIMES DAILY 1 tablet 2 TIMES DAILY (route: oral) Med Classific ation: Cardiovas cular Therapy Agents magnesium 400 mg (as magnesium oxide) tablet 10-26 00:00: 00 04-01 23:59 :00 No [id number] 1 tablet DAILY 1 tablet DAILY (route: oral) Med Classific ation: Electroly te Balance-N utritiona l Products prednisolon e acetate 1 % eye drops,suspe nsion 10-26 00:00: 00 04-01 23:59 :00 No [id number] 1 drops 3 TIMES DAILY 1 drops 3 TIMES DAILY (route: ophthalmic (eye)) Med Classific ation: Ophthalmi c Agents ropinirole 0.25 mg tablet 09-28 00:00: 00 04-01 23:59 :00 No [id number] Per instruc tions DIRECTED Per instructio ns DIRECTED (route: oral) Med Classific ation: Central Nervous System Agents venlafaxine ER 225 mg tablet,exte nded release 24 hr 10-26 00:00: 00 04-01 23:59 :00 No [id number] 1 tablet DAILY 1 tablet DAILY (route: oral) Med Classific ation: Central Nervous System Agents Vitamin D3 125 mcg (5,000 unit) tablet 09-28 00:00: 00 04-01 23:59 :00 No [id number] 1 tablet DAILY 1 tablet DAILY (route: oral) Med Classific ation: Electroly te Balance-N utritiona l Products clonazepam 0.5 mg tablet 2023-04 0-11 00:00: 00 04-01 23:59 :00 No [id number] Per instruc tions BEDTIME Per instructio ns BEDTIME (route: oral) Med Classific ation: Central Nervous System Agents acetaminoph en 325 mg tablet 04-30 00:00: 00 06-27 23:59 :00 No [id number] 2 tablet EVERY 4 HOURS 2 tablet EVERY 4 HOURS (route: oral) Med Classific ation: Analgesic , Anti-infl ammatory or Antipyret ic albuterol sulfate HFA 90 mcg/actuati on aerosol inhaler 04-30 00:00: 00 06-27 23:59 :00 No [id number] 2 puff EVERY 6 HOURS 2 puff EVERY 6 HOURS (route: inhalation ) Med Classific ation: Respirato ry Therapy Agents amantadine HCl 100 mg tablet 04-30 00:00: 00 06-27 23:59 :00 No [id number] 1 tablet DAILY 1 tablet DAILY (route: oral) Med Classific ation: Central Nervous System Agents amoxicillin 500 mg capsule 04-30 00:00: 00 06-27 23:59 :00 No [id number] 4 capsule DIRECTED 4 capsule DIRECTED (route: oral) Med Classific ation: Anti-Infe ctive Agents Breo Ellipta 100 mcg-25 mcg/dose powder for inhalation 04-30 00:00: 00 06-27 23:59 :00 No [id number] 1 inhalat ion DAILY 1 inhalation DAILY (route: inhalation ) Med Classific ation: Respirato ry Therapy Agents clonazepam 0.5 mg tablet 04-30 00:00: 00 06-27 23:59 :00 No [id number] 1 tablet BEDTIME 1 tablet BEDTIME (route: oral) Med Classific ation: Central Nervous System Agents docusate sodium 100 mg capsule 04-30 00:00: 00 06-27 23:59 :00 No [id number] 1 capsule 2 TIMES DAILY 1 capsule 2 TIMES DAILY (route: oral) Med Classific ation: Gastroint estinal Therapy Agents Eliquis 5 mg tablet 04-30 00:00: 00 06-27 23:59 :00 No [id number] 1 tablet 2 TIMES DAILY 1 tablet 2 TIMES DAILY (route: oral) Med Classific ation: Hematolog ical Agents finasteride 5 mg tablet 04-30 00:00: 00 06-27 23:59 :00 No [id number] 1 tablet DAILY 1 tablet DAILY (route: oral) Med Classific ation: Genitouri nary Therapy gabapentin 100 mg capsule 04-30 00:00: 00 06-27 23:59 :00 No [id number] 1 capsule DAILY 1 capsule DAILY (route: oral) Med Classific ation: Central Nervous System Agents gabapentin 300 mg capsule - 00:00: 00 06-27 23:59 :00 No [id number] 1 capsule BEDTIME 1 capsule BEDTIME (route: oral) Med Classific ation: Central Nervous System Agents mirtazapine 45 mg tablet - 00:00: 00 06-27 23:59 :00 No [id number] 1 tablet BEDTIME 1 tablet BEDTIME (route: oral) Med Classific ation: Central Nervous System Agents pantoprazol e 40 mg tablet,baltazar yed release - 00:00: 00 06-27 23:59 :00 No [id number] 1 tablet DAILY 1 tablet DAILY (route: oral) Med Classific ation: Gastroint estinal Therapy Agents ropinirole 0.25 mg tablet 04-30 00:00: 00 06-27 23:59 :00 No [id number] 1-4 tablet DIRECTED 1-4 tablet DIRECTED (route: oral) Med Classific ation: Central Nervous System Agents Rytary 36.25 mg-145 mg capsule,ext ended release 04-30 00:00: 00 06-27 23:59 :00 No [id number] 2 capsule 4 TIMES DAILY 2 capsule 4 TIMES DAILY (route: oral) Med Classific ation: Central Nervous System Agents venlafaxine ER 225 mg tablet,exte nded release 24 hr - 00:00: 00 06-27 23:59 :00 No [id number] 1 tablet BEDTIME 1 tablet BEDTIME (route: oral) Med Classific ation: Central Nervous System Agents amantadine HCl 100 mg capsule 3-04 00:00: 00 Yes [id number] 1 capsule DAILY 1 capsule DAILY (route: oral) Med Classific ation: Central Nervous System Agents clonazepam 0.5 mg tablet 3-04 00:00: 00 Yes [id number] 1 tablet BEDTIME 1 tablet BEDTIME (route: oral) Med Classific ation: Central Nervous System Agents Eliquis 5 mg tablet 3-04 00:00: 00 Yes [id number] 1 tablet 2 TIMES DAILY 1 tablet 2 TIMES DAILY (route: oral) Med Classific ation: Hematolog ical Agents finasteride 5 mg tablet 06-29 00:00: 00 Yes [id number] 1 tablet DAILY 1 tablet DAILY (route: oral) Med Classific ation: Genitouri nary Therapy gabapentin 100 mg capsule 06-29 00:00: 00 Yes [id number] 1 capsule DAILY 1 capsule DAILY (route: oral) Med Classific ation: Central Nervous System Agents gabapentin 300 mg capsule 06-29 00:00: 00 Yes [id number] 1 capsule BEDTIME 1 capsule BEDTIME (route: oral) Med Classific ation: Central Nervous System Agents mirtazapine 45 mg tablet 06-29 00:00: 00 Yes [id number] 1 tablet DAILY 1 tablet DAILY (route: oral) Med Classific ation: Central Nervous System Agents pantoprazol e 40 mg tablet,baltazar yed release 06-29 00:00: 00 10-21 23:59 :00 No [id number] 1 tablet DAILY 1 tablet DAILY (route: oral) Med Classific ation: Gastroint estinal Therapy Agents ropinirole 0.25 mg tablet 06-29 00:00: 00 Yes [id number] 2 tablet DAILY 2 tablet DAILY (route: oral) Med Classific ation: Central Nervous System Agents Rytary 36.25 mg-145 mg capsule,ext ended release 06-29 00:00: 00 Yes [id number] 3 capsule 4 TIMES DAILY 3 capsule 4 TIMES DAILY (route: oral) Med Classific ation: Central Nervous System Agents venlafaxine ER 225 mg tablet,exte nded release 24 hr 06-29 00:00: 00 Yes [id number] 1 tablet DAILY 1 tablet DAILY (route: oral) Med Classific ation: Central Nervous System Agents albuterol sulfate HFA 90 mcg/actuati on aerosol inhaler 06-29 00:00: 00 Yes [id number] 2 puff EVERY 6 HOURS 2 puff EVERY 6 HOURS (route: inhalation ) Med Classific ation: Respirato ry Therapy Agents Breo Ellipta 100 mcg-25 mcg/dose powder for inhalation 3-04 00:00: 00 Yes [id number] 1 inhalat ion DAILY 1 inhalation DAILY (route: inhalation ) Med Classific ation: Respirato ry Therapy Agents pantoprazol e 40 mg tablet,baltazar yed release 3- 00:00: 00 10-21 23:59 :00 No [id number] 1 tablet 2 TIMES DAILY 1 tablet 2 TIMES DAILY (route: oral) Med Classific ation: Gastroint estinal Therapy Agents fluconazole 200 mg tablet - 00:00: 00 Yes [id number] 200 mg DAILY 200 mg DAILY (route: oral) Alternate Route: SUBLINGUA L. Med Classific ation: Anti-Infe ctive Agents Carafate 100 mg/mL oral suspension 10-26 00:00: 00 Yes [id number] 10 mL 4 TIMES DAILY 10 mL 4 TIMES DAILY (route: oral) Med Classific ation: Gastroint estinal Therapy Agents Voquezna 20 mg tablet 10-26 00:00: 00 12-03 00:58 :03.3 47 No [id number] 1 tablet 2 TIMES DAILY 1 tablet 2 TIMES DAILY (route: oral) Med Classific ation: Gastroint estinal Therapy Agents Voquezna 20 mg tablet 10-21 00:00: 00 Yes [id number] 1 tablet 2 TIMES DAILY 1 tablet [...] SITUATIONAL AWARENESS AND WILL NOTIFY CLINICAL HAND CANDY DIPPER AND PHYSICIAN/PROVIDER WITH ANY CHANGE IN CONDITION. [code = SKILLED NURSE TO PERFORM ENVIRONMENTAL SAFETY RISK ASSESSMENT AND FALL RISK ASSESSMENT AND PROVIDE INSTRUCTION TO IMPLEMENT ENVIRONMENTAL SAFETY AND FALL PREVENTION STRATEGIES THROUGHOUT THE CERTIFICATION PERIOD. SKILLED NURSE WILL MAINTAIN SITUATIONAL AWARENESS AND WILL NOTIFY CLINICAL HAND CANDY DIPPER AND PHYSICIAN/PROVIDER WITH ANY CHANGE IN CONDITION.] [...] [facility] PATIENT LIVING SITUATION/CAREGIVER STATUS: [facility] SUMMARIZE SKILLED NEED: [...] End Date/Time Encounter Type Admission Type Attending [facility] Care Department Encounter ID Discharge Date Discharge Status Discharge Condition Discharge Reason Percent Goals Met 2025-02-24 00:00:00 2025-04-24 00:00:00 Outpatient RECERTIFIC ATION DEMETRI SLAUGHTER [facility] [id number] 6.25
--- OUTSIDE RECORDS SUMMARY | 2025-04-23 19:00 | XMS_ITS | Clinical Summary ---
Author Organization Unknown Care Team Providers Care Elastic Yarn Twister Name Role Phone DARIAN DANGELO, ANYA Unavailable Unavaila aleisha CHRISTENSEN FILER HELPER/LAYOUT MECHANIC, RENAN Unavailable Unava susie SLAUGHTER RN, DEMETRI Unavailable Unavailable Payers Payer Name Policy Type Policy Number Effective Date Expira tion Date MEDICARE - [facility] - PD [id number] Problems Condition Name Condition Details Condition Category [...] OF URINARY DEVICE Active 04-28 00:00: 00 [facility] (CURRENT) USE OF ANTICOAGULAN TS Active 04-28 [...] 01-11 00:00: 00 01-18 23:59 :00 No [id number] 1 tablet 2 TIMES DAILY 1 tablet 2 TIMES DAILY (route: oral) Med Classific ation: Anti-Infe ctive Agents lactulose 10 gram/15 mL oral solution 01-11 00:00: 00 04-01 23:59 :00 No [id number] 30 g DAILY 30 g DAILY (route: oral) Med Classific ation: Gastroint estinal Therapy Agents Rytary 36.25 mg-145 mg capsule,ext ended release 13 00:00: 00 04-01 23:59 :00 No [id number] 4 capsule 4 TIMES DAILY 4 capsule 4 TIMES DAILY (route: oral) Med Classific ation: Central Nervous System Agents Breo Ellipta 100 mcg-25 mcg/dose powder for inhalation - 00:00: 00 04-01 23:59 :00 No [id number] 1 inhalat ion ONCE DAILY 1 inhalation ONCE DAILY (route: inhalation ) Med Classific ation: Respirato ry Therapy Agents mirtazapine 45 mg tablet 12-12 00:00: 00 04-01 23:59 :00 No [id number] 1 tablet DAILY 1 tablet DAILY (route: oral) Med Classific ation: Central Nervous System Agents docusate sodium 100 mg capsule 16 00:00: 00 04-01 23:59 :00 No [id number] 1 capsule 2 TIMES DAILY 1 capsule 2 TIMES DAILY (route: oral) Med Classific ation: Gastroint estinal Therapy Agents Eliquis 5 mg tablet 10-26 00:00: 00 04-01 23:59 :00 No [id number] 1 tablet 2 TIMES DAILY 1 tablet 2 TIMES DAILY (route: oral) Med Classific ation: Hematolog ical Agents ferrous sulfate 325 mg (65 mg iron) tablet 10-26 00:00: 00 04-01 23:59 :00 No [id number] 1 tablet DAILY 1 tablet DAILY (route: oral) Med Classific ation: Electroly te Balance-N utritiona l Products finasteride 5 mg tablet 10-26 00:00: 00 04-01 23:59 :00 No [id number] 1 tablet DAILY 1 tablet DAILY (route: oral) Med Classific ation: Genitouri nary Therapy furosemide 40 mg tablet 10-26 00:00: 00 04-01 23:59 :00 No [id number] 1 tablet 2 TIMES DAILY 1 tablet 2 TIMES DAILY (route: oral) Med Classific ation: Cardiovas cular Therapy Agents magnesium 400 mg (as magnesium oxide) tablet 10-26 00:00: 00 04-01 23:59 :00 No [id number] 1 tablet DAILY 1 tablet DAILY (route: oral) Med Classific ation: Electroly te Balance-N utritiona l Products prednisolon e acetate 1 % eye drops,suspe nsion 10-26 00:00: 00 04-01 23:59 :00 No [id number] 1 drops 3 TIMES DAILY 1 drops 3 TIMES DAILY (route: ophthalmic (eye)) Med Classific ation: Ophthalmi c Agents ropinirole 0.25 mg tablet 09-28 00:00: 00 04-01 23:59 :00 No [id number] Per instruc tions DIRECTED Per instructio ns DIRECTED (route: oral) Med Classific ation: Central Nervous System Agents venlafaxine ER 225 mg tablet,exte nded release 24 hr 10-26 00:00: 00 04-01 23:59 :00 No [id number] 1 tablet DAILY 1 tablet DAILY (route: oral) Med Classific ation: Central Nervous System Agents Vitamin D3 125 mcg (5,000 unit) tablet 09-28 00:00: 00 04-01 23:59 :00 No [id number] 1 tablet DAILY 1 tablet DAILY (route: oral) Med Classific ation: Electroly te Balance-N utritiona l Products clonazepam 0.5 mg tablet 2023-04 0-11 00:00: 00 04-01 23:59 :00 No [id number] Per instruc tions BEDTIME Per instructio ns BEDTIME (route: oral) Med Classific ation: Central Nervous System Agents acetaminoph en 325 mg tablet 04-30 00:00: 00 06-27 23:59 :00 No [id number] 2 tablet EVERY 4 HOURS 2 tablet EVERY 4 HOURS (route: oral) Med Classific ation: Analgesic , Anti-infl ammatory or Antipyret ic albuterol sulfate HFA 90 mcg/actuati on aerosol inhaler 04-30 00:00: 00 06-27 23:59 :00 No [id number] 2 puff EVERY 6 HOURS 2 puff EVERY 6 HOURS (route: inhalation ) Med Classific ation: Respirato ry Therapy Agents amantadine HCl 100 mg tablet 04-30 00:00: 00 06-27 23:59 :00 No [id number] 1 tablet DAILY 1 tablet DAILY (route: oral) Med Classific ation: Central Nervous System Agents amoxicillin 500 mg capsule 04-30 00:00: 00 06-27 23:59 :00 No [id number] 4 capsule DIRECTED 4 capsule DIRECTED (route: oral) Med Classific ation: Anti-Infe ctive Agents Breo Ellipta 100 mcg-25 mcg/dose powder for inhalation 04-30 00:00: 00 06-27 23:59 :00 No [id number] 1 inhalat ion DAILY 1 inhalation DAILY (route: inhalation ) Med Classific ation: Respirato ry Therapy Agents clonazepam 0.5 mg tablet 04-30 00:00: 00 06-27 23:59 :00 No [id number] 1 tablet BEDTIME 1 tablet BEDTIME (route: oral) Med Classific ation: Central Nervous System Agents docusate sodium 100 mg capsule 04-30 00:00: 00 06-27 23:59 :00 No [id number] 1 capsule 2 TIMES DAILY 1 capsule 2 TIMES DAILY (route: oral) Med Classific ation: Gastroint estinal Therapy Agents Eliquis 5 mg tablet 04-30 00:00: 00 06-27 23:59 :00 No [id number] 1 tablet 2 TIMES DAILY 1 tablet 2 TIMES DAILY (route: oral) Med Classific ation: Hematolog ical Agents finasteride 5 mg tablet 04-30 00:00: 00 06-27 23:59 :00 No [id number] 1 tablet DAILY 1 tablet DAILY (route: oral) Med Classific ation: Genitouri nary Therapy gabapentin 100 mg capsule 04-30 00:00: 00 06-27 23:59 :00 No [id number] 1 capsule DAILY 1 capsule DAILY (route: oral) Med Classific ation: Central Nervous System Agents gabapentin 300 mg capsule - 00:00: 00 06-27 23:59 :00 No [id number] 1 capsule BEDTIME 1 capsule BEDTIME (route: oral) Med Classific ation: Central Nervous System Agents mirtazapine 45 mg tablet - 00:00: 00 06-27 23:59 :00 No [id number] 1 tablet BEDTIME 1 tablet BEDTIME (route: oral) Med Classific ation: Central Nervous System Agents pantoprazol e 40 mg tablet,baltazar yed release - 00:00: 00 06-27 23:59 :00 No [id number] 1 tablet DAILY 1 tablet DAILY (route: oral) Med Classific ation: Gastroint estinal Therapy Agents ropinirole 0.25 mg tablet 04-30 00:00: 00 06-27 23:59 :00 No [id number] 1-4 tablet DIRECTED 1-4 tablet DIRECTED (route: oral) Med Classific ation: Central Nervous System Agents Rytary 36.25 mg-145 mg capsule,ext ended release 04-30 00:00: 00 06-27 23:59 :00 No [id number] 2 capsule 4 TIMES DAILY 2 capsule 4 TIMES DAILY (route: oral) Med Classific ation: Central Nervous System Agents venlafaxine ER 225 mg tablet,exte nded release 24 hr - 00:00: 00 06-27 23:59 :00 No [id number] 1 tablet BEDTIME 1 tablet BEDTIME (route: oral) Med Classific ation: Central Nervous System Agents amantadine HCl 100 mg capsule 3-04 00:00: 00 Yes [id number] 1 capsule DAILY 1 capsule DAILY (route: oral) Med Classific ation: Central Nervous System Agents clonazepam 0.5 mg tablet 3-04 00:00: 00 Yes [id number] 1 tablet BEDTIME 1 tablet BEDTIME (route: oral) Med Classific ation: Central Nervous System Agents Eliquis 5 mg tablet 3-04 00:00: 00 Yes [id number] 1 tablet 2 TIMES DAILY 1 tablet 2 TIMES DAILY (route: oral) Med Classific ation: Hematolog ical Agents finasteride 5 mg tablet 06-29 00:00: 00 Yes [id number] 1 tablet DAILY 1 tablet DAILY (route: oral) Med Classific ation: Genitouri nary Therapy gabapentin 100 mg capsule 06-29 00:00: 00 Yes [id number] 1 capsule DAILY 1 capsule DAILY (route: oral) Med Classific ation: Central Nervous System Agents gabapentin 300 mg capsule 06-29 00:00: 00 Yes [id number] 1 capsule BEDTIME 1 capsule BEDTIME (route: oral) Med Classific ation: Central Nervous System Agents mirtazapine 45 mg tablet 06-29 00:00: 00 Yes [id number] 1 tablet DAILY 1 tablet DAILY (route: oral) Med Classific ation: Central Nervous System Agents pantoprazol e 40 mg tablet,baltazar yed release 06-29 00:00: 00 10-21 23:59 :00 No [id number] 1 tablet DAILY 1 tablet DAILY (route: oral) Med Classific ation: Gastroint estinal Therapy Agents ropinirole 0.25 mg tablet 06-29 00:00: 00 Yes [id number] 2 tablet DAILY 2 tablet DAILY (route: oral) Med Classific ation: Central Nervous System Agents Rytary 36.25 mg-145 mg capsule,ext ended release 06-29 00:00: 00 Yes [id number] 3 capsule 4 TIMES DAILY 3 capsule 4 TIMES DAILY (route: oral) Med Classific ation: Central Nervous System Agents venlafaxine ER 225 mg tablet,exte nded release 24 hr 06-29 00:00: 00 Yes [id number] 1 tablet DAILY 1 tablet DAILY (route: oral) Med Classific ation: Central Nervous System Agents albuterol sulfate HFA 90 mcg/actuati on aerosol inhaler 06-29 00:00: 00 Yes [id number] 2 puff EVERY 6 HOURS 2 puff EVERY 6 HOURS (route: inhalation ) Med Classific ation: Respirato ry Therapy Agents Breo Ellipta 100 mcg-25 mcg/dose powder for inhalation 3-04 00:00: 00 Yes [id number] 1 inhalat ion DAILY 1 inhalation DAILY (route: inhalation ) Med Classific ation: Respirato ry Therapy Agents pantoprazol e 40 mg tablet,baltazar yed release 3- 00:00: 00 10-21 23:59 :00 No [id number] 1 tablet 2 TIMES DAILY 1 tablet 2 TIMES DAILY (route: oral) Med Classific ation: Gastroint estinal Therapy Agents fluconazole 200 mg tablet - 00:00: 00 Yes [id number] 200 mg DAILY 200 mg DAILY (route: oral) Alternate Route: SUBLINGUA L. Med Classific ation: Anti-Infe ctive Agents Carafate 100 mg/mL oral suspension 10-26 00:00: 00 Yes [id number] 10 mL 4 TIMES DAILY 10 mL 4 TIMES DAILY (route: oral) Med Classific ation: Gastroint estinal Therapy Agents Voquezna 20 mg tablet 10-26 00:00: 00 12-03 00:58 :03.3 47 No [id number] 1 tablet 2 TIMES DAILY 1 tablet 2 TIMES DAILY (route: oral) Med Classific ation: Gastroint estinal Therapy Agents Voquezna 20 mg tablet 10-21 00:00: 00 Yes [id number] 1 tablet 2 TIMES DAILY 1 tablet [...] MAINTAIN SITUATIONAL AWARENESS AND WILL NOTIFY CLINICAL STONECUTTER HAND AND PHYSICIAN/PROVIDER WITH ANY CHANGE IN CONDITION. [code = SKILLED NURSE TO PERFORM ENVIRONMENTAL SAFETY RISK ASSESSMENT AND FALL RISK ASSESSMENT AND PROVIDE INSTRUCTION TO IMPLEMENT ENVIRONMENTAL SAFETY AND FALL PREVENTION STRATEGIES THROUGHOUT THE CERTIFICATION PERIOD. SKILLED NURSE WILL MAINTAIN SITUATIONAL AWARENESS AND WILL NOTIFY CLINICAL STONECUTTER HAND AND PHYSICIAN/PROVIDER WITH ANY CHANGE IN CONDITION.] [...] Outpatient RECERTIFIC ATION DEMETRI SLAUGHTER [facility] [id number] 6.25
--- OUTSIDE RECORDS SUMMARY | 2025-04-23 19:00 | XMS_ITS | Clinical Summary ---
Author Organization Unknown Care Team Providers Care Special Effects Artist Name Role Phone DARIAN DANGELO, ANYA Unavailable Unavaila aleisha [facility]/DIRECTOR HOSPICE OPERATIONS, RENAN Unavailable Unava susie SLAUGHTER RN, DEMETRI Unavailable Unavailable Payers Payer Name Policy Type Policy Number Effective Date Expira tion Date MEDICARE - [facility] [place] - PD [id number] Problems Condition Name Condition Details Condition Category [...] 01-11 00:00: 00 01-18 23:59 :00 No [id number] 1 tablet 2 TIMES DAILY 1 tablet 2 TIMES DAILY (route: oral) Med Classific ation: Anti-Infe ctive Agents lactulose 10 gram/15 mL oral solution 01-11 00:00: 00 04-01 23:59 :00 No [id number] 30 g DAILY 30 g DAILY (route: oral) Med Classific ation: Gastroint estinal Therapy Agents Rytary 36.25 mg-145 mg capsule,ext ended release 13 00:00: 00 04-01 23:59 :00 No [id number] 4 capsule 4 TIMES DAILY 4 capsule 4 TIMES DAILY (route: oral) Med Classific ation: Central Nervous System Agents Breo Ellipta 100 mcg-25 mcg/dose powder for inhalation - 00:00: 00 04-01 23:59 :00 No [id number] 1 inhalat ion ONCE DAILY 1 inhalation ONCE DAILY (route: inhalation ) Med Classific ation: Respirato ry Therapy Agents mirtazapine 45 mg tablet 12-12 00:00: 00 04-01 23:59 :00 No [id number] 1 tablet DAILY 1 tablet DAILY (route: oral) Med Classific ation: Central Nervous System Agents docusate sodium 100 mg capsule 16 00:00: 00 04-01 23:59 :00 No [id number] 1 capsule 2 TIMES DAILY 1 capsule 2 TIMES DAILY (route: oral) Med Classific ation: Gastroint estinal Therapy Agents Eliquis 5 mg tablet 10-26 00:00: 00 04-01 23:59 :00 No [id number] 1 tablet 2 TIMES DAILY 1 tablet 2 TIMES DAILY (route: oral) Med Classific ation: Hematolog ical Agents ferrous sulfate 325 mg (65 mg iron) tablet 10-26 00:00: 00 04-01 23:59 :00 No [id number] 1 tablet DAILY 1 tablet DAILY (route: oral) Med Classific ation: Electroly te Balance-N utritiona l Products finasteride 5 mg tablet 10-26 00:00: 00 04-01 23:59 :00 No [id number] 1 tablet DAILY 1 tablet DAILY (route: oral) Med Classific ation: Genitouri nary Therapy furosemide 40 mg tablet 10-26 00:00: 00 04-01 23:59 :00 No [id number] 1 tablet 2 TIMES DAILY 1 tablet 2 TIMES DAILY (route: oral) Med Classific ation: Cardiovas cular Therapy Agents magnesium 400 mg (as magnesium oxide) tablet 10-26 00:00: 00 04-01 23:59 :00 No [id number] 1 tablet DAILY 1 tablet DAILY (route: oral) Med Classific ation: Electroly te Balance-N utritiona l Products prednisolon e acetate 1 % eye drops,suspe nsion 10-26 00:00: 00 04-01 23:59 :00 No [id number] 1 drops 3 TIMES DAILY 1 drops 3 TIMES DAILY (route: ophthalmic (eye)) Med Classific ation: Ophthalmi c Agents ropinirole 0.25 mg tablet 09-28 00:00: 00 04-01 23:59 :00 No [id number] Per instruc tions DIRECTED Per instructio ns DIRECTED (route: oral) Med Classific ation: Central Nervous System Agents venlafaxine ER 225 mg tablet,exte nded release 24 hr 10-26 00:00: 00 04-01 23:59 :00 No [id number] 1 tablet DAILY 1 tablet DAILY (route: oral) Med Classific ation: Central Nervous System Agents Vitamin D3 125 mcg (5,000 unit) tablet 09-28 00:00: 00 04-01 23:59 :00 No [id number] 1 tablet DAILY 1 tablet DAILY (route: oral) Med Classific ation: Electroly te Balance-N utritiona l Products clonazepam 0.5 mg tablet 2023-04 0-11 00:00: 00 04-01 23:59 :00 No [id number] Per instruc tions BEDTIME Per instructio ns BEDTIME (route: oral) Med Classific ation: Central Nervous System Agents acetaminoph en 325 mg tablet 04-30 00:00: 00 06-27 23:59 :00 No [id number] 2 tablet EVERY 4 HOURS 2 tablet EVERY 4 HOURS (route: oral) Med Classific ation: Analgesic , Anti-infl ammatory or Antipyret ic albuterol sulfate HFA 90 mcg/actuati on aerosol inhaler 04-30 00:00: 00 06-27 23:59 :00 No [id number] 2 puff EVERY 6 HOURS 2 puff EVERY 6 HOURS (route: inhalation ) Med Classific ation: Respirato ry Therapy Agents amantadine HCl 100 mg tablet 04-30 00:00: 00 06-27 23:59 :00 No [id number] 1 tablet DAILY 1 tablet DAILY (route: oral) Med Classific ation: Central Nervous System Agents amoxicillin 500 mg capsule 04-30 00:00: 00 06-27 23:59 :00 No [id number] 4 capsule DIRECTED 4 capsule DIRECTED (route: oral) Med Classific ation: Anti-Infe ctive Agents Breo Ellipta 100 mcg-25 mcg/dose powder for inhalation 04-30 00:00: 00 06-27 23:59 :00 No [id number] 1 inhalat ion DAILY 1 inhalation DAILY (route: inhalation ) Med Classific ation: Respirato ry Therapy Agents clonazepam 0.5 mg tablet 04-30 00:00: 00 06-27 23:59 :00 No [id number] 1 tablet BEDTIME 1 tablet BEDTIME (route: oral) Med Classific ation: Central Nervous System Agents docusate sodium 100 mg capsule 04-30 00:00: 00 06-27 23:59 :00 No [id number] 1 capsule 2 TIMES DAILY 1 capsule 2 TIMES DAILY (route: oral) Med Classific ation: Gastroint estinal Therapy Agents Eliquis 5 mg tablet 04-30 00:00: 00 06-27 23:59 :00 No [id number] 1 tablet 2 TIMES DAILY 1 tablet 2 TIMES DAILY (route: oral) Med Classific ation: Hematolog ical Agents finasteride 5 mg tablet 04-30 00:00: 00 06-27 23:59 :00 No [id number] 1 tablet DAILY 1 tablet DAILY (route: oral) Med Classific ation: Genitouri nary Therapy gabapentin 100 mg capsule 04-30 00:00: 00 06-27 23:59 :00 No [id number] 1 capsule DAILY 1 capsule DAILY (route: oral) Med Classific ation: Central Nervous System Agents gabapentin 300 mg capsule - 00:00: 00 06-27 23:59 :00 No [id number] 1 capsule BEDTIME 1 capsule BEDTIME (route: oral) Med Classific ation: Central Nervous System Agents mirtazapine 45 mg tablet - 00:00: 00 06-27 23:59 :00 No [id number] 1 tablet BEDTIME 1 tablet BEDTIME (route: oral) Med Classific ation: Central Nervous System Agents pantoprazol e 40 mg tablet,baltazar yed release - 00:00: 00 06-27 23:59 :00 No [id number] 1 tablet DAILY 1 tablet DAILY (route: oral) Med Classific ation: Gastroint estinal Therapy Agents ropinirole 0.25 mg tablet 04-30 00:00: 00 06-27 23:59 :00 No [id number] 1-4 tablet DIRECTED 1-4 tablet DIRECTED (route: oral) Med Classific ation: Central Nervous System Agents Rytary 36.25 mg-145 mg capsule,ext ended release 04-30 00:00: 00 06-27 23:59 :00 No [id number] 2 capsule 4 TIMES DAILY 2 capsule 4 TIMES DAILY (route: oral) Med Classific ation: Central Nervous System Agents venlafaxine ER 225 mg tablet,exte nded release 24 hr - 00:00: 00 06-27 23:59 :00 No [id number] 1 tablet BEDTIME 1 tablet BEDTIME (route: oral) Med Classific ation: Central Nervous System Agents amantadine HCl 100 mg capsule 3-04 00:00: 00 Yes [id number] 1 capsule DAILY 1 capsule DAILY (route: oral) Med Classific ation: Central Nervous System Agents clonazepam 0.5 mg tablet 3-04 00:00: 00 Yes [id number] 1 tablet BEDTIME 1 tablet BEDTIME (route: oral) Med Classific ation: Central Nervous System Agents Eliquis 5 mg tablet 3-04 00:00: 00 Yes [id number] 1 tablet 2 TIMES DAILY 1 tablet 2 TIMES DAILY (route: oral) Med Classific ation: Hematolog ical Agents finasteride 5 mg tablet 06-29 00:00: 00 Yes [id number] 1 tablet DAILY 1 tablet DAILY (route: oral) Med Classific ation: Genitouri nary Therapy gabapentin 100 mg capsule 06-29 00:00: 00 Yes [id number] 1 capsule DAILY 1 capsule DAILY (route: oral) Med Classific ation: Central Nervous System Agents gabapentin 300 mg capsule 06-29 00:00: 00 Yes [id number] 1 capsule BEDTIME 1 capsule BEDTIME (route: oral) Med Classific ation: Central Nervous System Agents mirtazapine 45 mg tablet 06-29 00:00: 00 Yes [id number] 1 tablet DAILY 1 tablet DAILY (route: oral) Med Classific ation: Central Nervous System Agents pantoprazol e 40 mg tablet,baltazar yed release 06-29 00:00: 00 10-21 23:59 :00 No [id number] 1 tablet DAILY 1 tablet DAILY (route: oral) Med Classific ation: Gastroint estinal Therapy Agents ropinirole 0.25 mg tablet 06-29 00:00: 00 Yes [id number] 2 tablet DAILY 2 tablet DAILY (route: oral) Med Classific ation: Central Nervous System Agents Rytary 36.25 mg-145 mg capsule,ext ended release 06-29 00:00: 00 Yes [id number] 3 capsule 4 TIMES DAILY 3 capsule 4 TIMES DAILY (route: oral) Med Classific ation: Central Nervous System Agents venlafaxine ER 225 mg tablet,exte nded release 24 hr 06-29 00:00: 00 Yes [id number] 1 tablet DAILY 1 tablet DAILY (route: oral) Med Classific ation: Central Nervous System Agents albuterol sulfate HFA 90 mcg/actuati on aerosol inhaler 06-29 00:00: 00 Yes [id number] 2 puff EVERY 6 HOURS 2 puff EVERY 6 HOURS (route: inhalation ) Med Classific ation: Respirato ry Therapy Agents Breo Ellipta 100 mcg-25 mcg/dose powder for inhalation 3-04 00:00: 00 Yes [id number] 1 inhalat ion DAILY 1 inhalation DAILY (route: inhalation ) Med Classific ation: Respirato ry Therapy Agents pantoprazol e 40 mg tablet,baltazar yed release 3- 00:00: 00 10-21 23:59 :00 No [id number] 1 tablet 2 TIMES DAILY 1 tablet 2 TIMES DAILY (route: oral) Med Classific ation: Gastroint estinal Therapy Agents fluconazole 200 mg tablet - 00:00: 00 Yes [id number] 200 mg DAILY 200 mg DAILY (route: oral) Alternate Route: SUBLINGUA L. Med Classific ation: Anti-Infe ctive Agents Carafate 100 mg/mL oral suspension 10-26 00:00: 00 Yes [id number] 10 mL 4 TIMES DAILY 10 mL 4 TIMES DAILY (route: oral) Med Classific ation: Gastroint estinal Therapy Agents Voquezna 20 mg tablet 10-26 00:00: 00 12-03 00:58 :03.3 47 No [id number] 1 tablet 2 TIMES DAILY 1 tablet 2 TIMES DAILY (route: oral) Med Classific ation: Gastroint estinal Therapy Agents Voquezna 20 mg tablet 10-21 00:00: 00 Yes [id number] 1 tablet 2 TIMES DAILY 1 tablet [...] MAINTAIN SITUATIONAL AWARENESS AND WILL NOTIFY CLINICAL TECHNICAL LABORATORY ASST AND PHYSICIAN/PROVIDER WITH ANY CHANGE IN CONDITION. [code = SKILLED NURSE TO PERFORM ENVIRONMENTAL SAFETY RISK ASSESSMENT AND FALL RISK ASSESSMENT AND PROVIDE INSTRUCTION TO IMPLEMENT ENVIRONMENTAL SAFETY AND FALL PREVENTION STRATEGIES THROUGHOUT THE CERTIFICATION PERIOD. SKILLED NURSE WILL MAINTAIN SITUATIONAL AWARENESS AND WILL NOTIFY CLINICAL TECHNICAL LABORATORY ASST AND PHYSICIAN/PROVIDER WITH ANY CHANGE IN CONDITION.] [...] DEMETRI SLAUGHTER [facility] [id number] 6.25
--- OUTSIDE RECORDS SUMMARY | 2025-04-23 19:00 | XMS_ITS | Clinical Summary ---
Author Organization Unknown Care Team Providers Care Dimension Mill Worker Name Role Phone DARIAN DANGELO, ANYA Unavailable Unavaila aleisha CHRISTENSEN TRAINING AND DEVELOPMENT COORDINATOR/APPLICATIONS ENGINEERING MANAGER, RENAN Unavailable Unava susie SLAUGHTER RN, DEMETRI Unavailable Unavailable Payers Payer Name Policy Type Policy Number Effective Date Expira tion Date MEDICARE - [facility] - PD [id number] Problems Condition Name Condition Details Condition Category [...] 01-11 00:00: 00 01-18 23:59 :00 No [id number] 1 tablet 2 TIMES DAILY 1 tablet 2 TIMES DAILY (route: oral) Med Classific ation: Anti-Infe ctive Agents lactulose 10 gram/15 mL oral solution 01-11 00:00: 00 04-01 23:59 :00 No [id number] 30 g DAILY 30 g DAILY (route: oral) Med Classific ation: Gastroint estinal Therapy Agents Rytary 36.25 mg-145 mg capsule,ext ended release 13 00:00: 00 04-01 23:59 :00 No [id number] 4 capsule 4 TIMES DAILY 4 capsule 4 TIMES DAILY (route: oral) Med Classific ation: Central Nervous System Agents Breo Ellipta 100 mcg-25 mcg/dose powder for inhalation - 00:00: 00 04-01 23:59 :00 No [id number] 1 inhalat ion ONCE DAILY 1 inhalation ONCE DAILY (route: inhalation ) Med Classific ation: Respirato ry Therapy Agents mirtazapine 45 mg tablet 12-12 00:00: 00 04-01 23:59 :00 No [id number] 1 tablet DAILY 1 tablet DAILY (route: oral) Med Classific ation: Central Nervous System Agents docusate sodium 100 mg capsule 16 00:00: 00 04-01 23:59 :00 No [id number] 1 capsule 2 TIMES DAILY 1 capsule 2 TIMES DAILY (route: oral) Med Classific ation: Gastroint estinal Therapy Agents Eliquis 5 mg tablet 10-26 00:00: 00 04-01 23:59 :00 No [id number] 1 tablet 2 TIMES DAILY 1 tablet 2 TIMES DAILY (route: oral) Med Classific ation: Hematolog ical Agents ferrous sulfate 325 mg (65 mg iron) tablet 10-26 00:00: 00 04-01 23:59 :00 No [id number] 1 tablet DAILY 1 tablet DAILY (route: oral) Med Classific ation: Electroly te Balance-N utritiona l Products finasteride 5 mg tablet 10-26 00:00: 00 04-01 23:59 :00 No [id number] 1 tablet DAILY 1 tablet DAILY (route: oral) Med Classific ation: Genitouri nary Therapy furosemide 40 mg tablet 10-26 00:00: 00 04-01 23:59 :00 No [id number] 1 tablet 2 TIMES DAILY 1 tablet 2 TIMES DAILY (route: oral) Med Classific ation: Cardiovas cular Therapy Agents magnesium 400 mg (as magnesium oxide) tablet 10-26 00:00: 00 04-01 23:59 :00 No [id number] 1 tablet DAILY 1 tablet DAILY (route: oral) Med Classific ation: Electroly te Balance-N utritiona l Products prednisolon e acetate 1 % eye drops,suspe nsion 10-26 00:00: 00 04-01 23:59 :00 No [id number] 1 drops 3 TIMES DAILY 1 drops 3 TIMES DAILY (route: ophthalmic (eye)) Med Classific ation: Ophthalmi c Agents ropinirole 0.25 mg tablet 09-28 00:00: 00 04-01 23:59 :00 No [id number] Per instruc tions DIRECTED Per instructio ns DIRECTED (route: oral) Med Classific ation: Central Nervous System Agents venlafaxine ER 225 mg tablet,exte nded release 24 hr 10-26 00:00: 00 04-01 23:59 :00 No [id number] 1 tablet DAILY 1 tablet DAILY (route: oral) Med Classific ation: Central Nervous System Agents Vitamin D3 125 mcg (5,000 unit) tablet 09-28 00:00: 00 04-01 23:59 :00 No [id number] 1 tablet DAILY 1 tablet DAILY (route: oral) Med Classific ation: Electroly te Balance-N utritiona l Products clonazepam 0.5 mg tablet 2023-04 0-11 00:00: 00 04-01 23:59 :00 No [id number] Per instruc tions BEDTIME Per instructio ns BEDTIME (route: oral) Med Classific ation: Central Nervous System Agents acetaminoph en 325 mg tablet 04-30 00:00: 00 06-27 23:59 :00 No [id number] 2 tablet EVERY 4 HOURS 2 tablet EVERY 4 HOURS (route: oral) Med Classific ation: Analgesic , Anti-infl ammatory or Antipyret ic albuterol sulfate HFA 90 mcg/actuati on aerosol inhaler 04-30 00:00: 00 06-27 23:59 :00 No [id number] 2 puff EVERY 6 HOURS 2 puff EVERY 6 HOURS (route: inhalation ) Med Classific ation: Respirato ry Therapy Agents amantadine HCl 100 mg tablet 04-30 00:00: 00 06-27 23:59 :00 No [id number] 1 tablet DAILY 1 tablet DAILY (route: oral) Med Classific ation: Central Nervous System Agents amoxicillin 500 mg capsule 04-30 00:00: 00 06-27 23:59 :00 No [id number] 4 capsule DIRECTED 4 capsule DIRECTED (route: oral) Med Classific ation: Anti-Infe ctive Agents Breo Ellipta 100 mcg-25 mcg/dose powder for inhalation 04-30 00:00: 00 06-27 23:59 :00 No [id number] 1 inhalat ion DAILY 1 inhalation DAILY (route: inhalation ) Med Classific ation: Respirato ry Therapy Agents clonazepam 0.5 mg tablet 04-30 00:00: 00 06-27 23:59 :00 No [id number] 1 tablet BEDTIME 1 tablet BEDTIME (route: oral) Med Classific ation: Central Nervous System Agents docusate sodium 100 mg capsule 04-30 00:00: 00 06-27 23:59 :00 No [id number] 1 capsule 2 TIMES DAILY 1 capsule 2 TIMES DAILY (route: oral) Med Classific ation: Gastroint estinal Therapy Agents Eliquis 5 mg tablet 04-30 00:00: 00 06-27 23:59 :00 No [id number] 1 tablet 2 TIMES DAILY 1 tablet 2 TIMES DAILY (route: oral) Med Classific ation: Hematolog ical Agents finasteride 5 mg tablet 04-30 00:00: 00 06-27 23:59 :00 No [id number] 1 tablet DAILY 1 tablet DAILY (route: oral) Med Classific ation: Genitouri nary Therapy gabapentin 100 mg capsule 04-30 00:00: 00 06-27 23:59 :00 No [id number] 1 capsule DAILY 1 capsule DAILY (route: oral) Med Classific ation: Central Nervous System Agents gabapentin 300 mg capsule - 00:00: 00 06-27 23:59 :00 No [id number] 1 capsule BEDTIME 1 capsule BEDTIME (route: oral) Med Classific ation: Central Nervous System Agents mirtazapine 45 mg tablet - 00:00: 00 06-27 23:59 :00 No [id number] 1 tablet BEDTIME 1 tablet BEDTIME (route: oral) Med Classific ation: Central Nervous System Agents pantoprazol e 40 mg tablet,baltazar yed release - 00:00: 00 06-27 23:59 :00 No [id number] 1 tablet DAILY 1 tablet DAILY (route: oral) Med Classific ation: Gastroint estinal Therapy Agents ropinirole 0.25 mg tablet 04-30 00:00: 00 06-27 23:59 :00 No [id number] 1-4 tablet DIRECTED 1-4 tablet DIRECTED (route: oral) Med Classific ation: Central Nervous System Agents Rytary 36.25 mg-145 mg capsule,ext ended release 04-30 00:00: 00 06-27 23:59 :00 No [id number] 2 capsule 4 TIMES DAILY 2 capsule 4 TIMES DAILY (route: oral) Med Classific ation: Central Nervous System Agents venlafaxine ER 225 mg tablet,exte nded release 24 hr - 00:00: 00 06-27 23:59 :00 No [id number] 1 tablet BEDTIME 1 tablet BEDTIME (route: oral) Med Classific ation: Central Nervous System Agents amantadine HCl 100 mg capsule 3-04 00:00: 00 Yes [id number] 1 capsule DAILY 1 capsule DAILY (route: oral) Med Classific ation: Central Nervous System Agents clonazepam 0.5 mg tablet 3-04 00:00: 00 Yes [id number] 1 tablet BEDTIME 1 tablet BEDTIME (route: oral) Med Classific ation: Central Nervous System Agents Eliquis 5 mg tablet 3-04 00:00: 00 Yes [id number] 1 tablet 2 TIMES DAILY 1 tablet 2 TIMES DAILY (route: oral) Med Classific ation: Hematolog ical Agents finasteride 5 mg tablet 06-29 00:00: 00 Yes [id number] 1 tablet DAILY 1 tablet DAILY (route: oral) Med Classific ation: Genitouri nary Therapy gabapentin 100 mg capsule 06-29 00:00: 00 Yes [id number] 1 capsule DAILY 1 capsule DAILY (route: oral) Med Classific ation: Central Nervous System Agents gabapentin 300 mg capsule 06-29 00:00: 00 Yes [id number] 1 capsule BEDTIME 1 capsule BEDTIME (route: oral) Med Classific ation: Central Nervous System Agents mirtazapine 45 mg tablet 06-29 00:00: 00 Yes [id number] 1 tablet DAILY 1 tablet DAILY (route: oral) Med Classific ation: Central Nervous System Agents pantoprazol e 40 mg tablet,baltazar yed release 06-29 00:00: 00 10-21 23:59 :00 No [id number] 1 tablet DAILY 1 tablet DAILY (route: oral) Med Classific ation: Gastroint estinal Therapy Agents ropinirole 0.25 mg tablet 06-29 00:00: 00 Yes [id number] 2 tablet DAILY 2 tablet DAILY (route: oral) Med Classific ation: Central Nervous System Agents Rytary 36.25 mg-145 mg capsule,ext ended release 06-29 00:00: 00 Yes [id number] 3 capsule 4 TIMES DAILY 3 capsule 4 TIMES DAILY (route: oral) Med Classific ation: Central Nervous System Agents venlafaxine ER 225 mg tablet,exte nded release 24 hr 06-29 00:00: 00 Yes [id number] 1 tablet DAILY 1 tablet DAILY (route: oral) Med Classific ation: Central Nervous System Agents albuterol sulfate HFA 90 mcg/actuati on aerosol inhaler 06-29 00:00: 00 Yes [id number] 2 puff EVERY 6 HOURS 2 puff EVERY 6 HOURS (route: inhalation ) Med Classific ation: Respirato ry Therapy Agents Breo Ellipta 100 mcg-25 mcg/dose powder for inhalation 3-04 00:00: 00 Yes [id number] 1 inhalat ion DAILY 1 inhalation DAILY (route: inhalation ) Med Classific ation: Respirato ry Therapy Agents pantoprazol e 40 mg tablet,baltazar yed release 3- 00:00: 00 10-21 23:59 :00 No [id number] 1 tablet 2 TIMES DAILY 1 tablet 2 TIMES DAILY (route: oral) Med Classific ation: Gastroint estinal Therapy Agents fluconazole 200 mg tablet - 00:00: 00 Yes [id number] 200 mg DAILY 200 mg DAILY (route: oral) Alternate Route: SUBLINGUA L. Med Classific ation: Anti-Infe ctive Agents Carafate 100 mg/mL oral suspension 10-26 00:00: 00 Yes [id number] 10 mL 4 TIMES DAILY 10 mL 4 TIMES DAILY (route: oral) Med Classific ation: Gastroint estinal Therapy Agents Voquezna 20 mg tablet 10-26 00:00: 00 12-03 00:58 :03.3 47 No [id number] 1 tablet 2 TIMES DAILY 1 tablet 2 TIMES DAILY (route: oral) Med Classific ation: Gastroint estinal Therapy Agents Voquezna 20 mg tablet 10-21 00:00: 00 Yes [id number] 1 tablet 2 TIMES DAILY 1 tablet [...] MAINTAIN SITUATIONAL AWARENESS AND WILL NOTIFY CLINICAL MANAGER SOURCING AND PHYSICIAN/PROVIDER WITH ANY CHANGE IN CONDITION. [code = SKILLED NURSE TO PERFORM ENVIRONMENTAL SAFETY RISK ASSESSMENT AND FALL RISK ASSESSMENT AND PROVIDE INSTRUCTION TO IMPLEMENT ENVIRONMENTAL SAFETY AND FALL PREVENTION STRATEGIES THROUGHOUT THE CERTIFICATION PERIOD. SKILLED NURSE WILL MAINTAIN SITUATIONAL AWARENESS AND WILL NOTIFY CLINICAL MANAGER SOURCING AND PHYSICIAN/PROVIDER WITH ANY CHANGE IN CONDITION.] [...] LASIX PATIENT LIVING SITUATION/CAREGIVER STATUS: [facility] SKILLED NEED: DISEASE [...] Date/Time Encounter Type Admission Type Attending [facility] Care Department Encounter ID Discharge Date Discharge Status Discharge Condition Discharge Reason Percent Goals Met 2025-02-24 00:00:00 2025-04-24 00:00:00 Outpatient RECERTIFIC ATION DEMETRI SLAUGHTER [facility] [id number] 6.25
--- OUTSIDE RECORDS SUMMARY | 2025-04-23 19:00 | XMS_ITS | Clinical Summary ---
Author Organization Unknown Care Team Providers Care Supervisor Particleboard Name Role Phone DARIAN DANGELO, ANYA Unavailable Unavaila aleisha CHRISTENSEN LABORER CAR BARN/GRAPHIC DESIGN ASSISTANT, RENAN Unavailable Unava susie SLAUGHTER RN, DEMETRI Unavailable Unavailable Payers Payer Name Policy Type Policy Number Effective Date Expira tion Date MEDICARE - [facility] - PD [id number] Problems Condition Name Condition Details Condition Category [...] 01-11 00:00: 00 01-18 23:59 :00 No [id number] 1 tablet 2 TIMES DAILY 1 tablet 2 TIMES DAILY (route: oral) Med Classific ation: Anti-Infe ctive Agents lactulose 10 gram/15 mL oral solution 01-11 00:00: 00 04-01 23:59 :00 No [id number] 30 g DAILY 30 g DAILY (route: oral) Med Classific ation: Gastroint estinal Therapy Agents Rytary 36.25 mg-145 mg capsule,ext ended release 13 00:00: 00 04-01 23:59 :00 No [id number] 4 capsule 4 TIMES DAILY 4 capsule 4 TIMES DAILY (route: oral) Med Classific ation: Central Nervous System Agents Breo Ellipta 100 mcg-25 mcg/dose powder for inhalation - 00:00: 00 04-01 23:59 :00 No [id number] 1 inhalat ion ONCE DAILY 1 inhalation ONCE DAILY (route: inhalation ) Med Classific ation: Respirato ry Therapy Agents mirtazapine 45 mg tablet 12-12 00:00: 00 04-01 23:59 :00 No [id number] 1 tablet DAILY 1 tablet DAILY (route: oral) Med Classific ation: Central Nervous System Agents docusate sodium 100 mg capsule 16 00:00: 00 04-01 23:59 :00 No [id number] 1 capsule 2 TIMES DAILY 1 capsule 2 TIMES DAILY (route: oral) Med Classific ation: Gastroint estinal Therapy Agents Eliquis 5 mg tablet 10-26 00:00: 00 04-01 23:59 :00 No [id number] 1 tablet 2 TIMES DAILY 1 tablet 2 TIMES DAILY (route: oral) Med Classific ation: Hematolog ical Agents ferrous sulfate 325 mg (65 mg iron) tablet 10-26 00:00: 00 04-01 23:59 :00 No [id number] 1 tablet DAILY 1 tablet DAILY (route: oral) Med Classific ation: Electroly te Balance-N utritiona l Products finasteride 5 mg tablet 10-26 00:00: 00 04-01 23:59 :00 No [id number] 1 tablet DAILY 1 tablet DAILY (route: oral) Med Classific ation: Genitouri nary Therapy furosemide 40 mg tablet 10-26 00:00: 00 04-01 23:59 :00 No [id number] 1 tablet 2 TIMES DAILY 1 tablet 2 TIMES DAILY (route: oral) Med Classific ation: Cardiovas cular Therapy Agents magnesium 400 mg (as magnesium oxide) tablet 10-26 00:00: 00 04-01 23:59 :00 No [id number] 1 tablet DAILY 1 tablet DAILY (route: oral) Med Classific ation: Electroly te Balance-N utritiona l Products prednisolon e acetate 1 % eye drops,suspe nsion 10-26 00:00: 00 04-01 23:59 :00 No [id number] 1 drops 3 TIMES DAILY 1 drops 3 TIMES DAILY (route: ophthalmic (eye)) Med Classific ation: Ophthalmi c Agents ropinirole 0.25 mg tablet 09-28 00:00: 00 04-01 23:59 :00 No [id number] Per instruc tions DIRECTED Per instructio ns DIRECTED (route: oral) Med Classific ation: Central Nervous System Agents venlafaxine ER 225 mg tablet,exte nded release 24 hr 10-26 00:00: 00 04-01 23:59 :00 No [id number] 1 tablet DAILY 1 tablet DAILY (route: oral) Med Classific ation: Central Nervous System Agents Vitamin D3 125 mcg (5,000 unit) tablet 09-28 00:00: 00 04-01 23:59 :00 No [id number] 1 tablet DAILY 1 tablet DAILY (route: oral) Med Classific ation: Electroly te Balance-N utritiona l Products clonazepam 0.5 mg tablet 2023-04 0-11 00:00: 00 04-01 23:59 :00 No [id number] Per instruc tions BEDTIME Per instructio ns BEDTIME (route: oral) Med Classific ation: Central Nervous System Agents acetaminoph en 325 mg tablet 04-30 00:00: 00 06-27 23:59 :00 No [id number] 2 tablet EVERY 4 HOURS 2 tablet EVERY 4 HOURS (route: oral) Med Classific ation: Analgesic , Anti-infl ammatory or Antipyret ic albuterol sulfate HFA 90 mcg/actuati on aerosol inhaler 04-30 00:00: 00 06-27 23:59 :00 No [id number] 2 puff EVERY 6 HOURS 2 puff EVERY 6 HOURS (route: inhalation ) Med Classific ation: Respirato ry Therapy Agents amantadine HCl 100 mg tablet 04-30 00:00: 00 06-27 23:59 :00 No [id number] 1 tablet DAILY 1 tablet DAILY (route: oral) Med Classific ation: Central Nervous System Agents amoxicillin 500 mg capsule 04-30 00:00: 00 06-27 23:59 :00 No [id number] 4 capsule DIRECTED 4 capsule DIRECTED (route: oral) Med Classific ation: Anti-Infe ctive Agents Breo Ellipta 100 mcg-25 mcg/dose powder for inhalation 04-30 00:00: 00 06-27 23:59 :00 No [id number] 1 inhalat ion DAILY 1 inhalation DAILY (route: inhalation ) Med Classific ation: Respirato ry Therapy Agents clonazepam 0.5 mg tablet 04-30 00:00: 00 06-27 23:59 :00 No [id number] 1 tablet BEDTIME 1 tablet BEDTIME (route: oral) Med Classific ation: Central Nervous System Agents docusate sodium 100 mg capsule 04-30 00:00: 00 06-27 23:59 :00 No [id number] 1 capsule 2 TIMES DAILY 1 capsule 2 TIMES DAILY (route: oral) Med Classific ation: Gastroint estinal Therapy Agents Eliquis 5 mg tablet 04-30 00:00: 00 06-27 23:59 :00 No [id number] 1 tablet 2 TIMES DAILY 1 tablet 2 TIMES DAILY (route: oral) Med Classific ation: Hematolog ical Agents finasteride 5 mg tablet 04-30 00:00: 00 06-27 23:59 :00 No [id number] 1 tablet DAILY 1 tablet DAILY (route: oral) Med Classific ation: Genitouri nary Therapy gabapentin 100 mg capsule 04-30 00:00: 00 06-27 23:59 :00 No [id number] 1 capsule DAILY 1 capsule DAILY (route: oral) Med Classific ation: Central Nervous System Agents gabapentin 300 mg capsule - 00:00: 00 06-27 23:59 :00 No [id number] 1 capsule BEDTIME 1 capsule BEDTIME (route: oral) Med Classific ation: Central Nervous System Agents mirtazapine 45 mg tablet - 00:00: 00 06-27 23:59 :00 No [id number] 1 tablet BEDTIME 1 tablet BEDTIME (route: oral) Med Classific ation: Central Nervous System Agents pantoprazol e 40 mg tablet,baltazar yed release - 00:00: 00 06-27 23:59 :00 No [id number] 1 tablet DAILY 1 tablet DAILY (route: oral) Med Classific ation: Gastroint estinal Therapy Agents ropinirole 0.25 mg tablet 04-30 00:00: 00 06-27 23:59 :00 No [id number] 1-4 tablet DIRECTED 1-4 tablet DIRECTED (route: oral) Med Classific ation: Central Nervous System Agents Rytary 36.25 mg-145 mg capsule,ext ended release 04-30 00:00: 00 06-27 23:59 :00 No [id number] 2 capsule 4 TIMES DAILY 2 capsule 4 TIMES DAILY (route: oral) Med Classific ation: Central Nervous System Agents venlafaxine ER 225 mg tablet,exte nded release 24 hr - 00:00: 00 06-27 23:59 :00 No [id number] 1 tablet BEDTIME 1 tablet BEDTIME (route: oral) Med Classific ation: Central Nervous System Agents amantadine HCl 100 mg capsule 3-04 00:00: 00 Yes [id number] 1 capsule DAILY 1 capsule DAILY (route: oral) Med Classific ation: Central Nervous System Agents clonazepam 0.5 mg tablet 3-04 00:00: 00 Yes [id number] 1 tablet BEDTIME 1 tablet BEDTIME (route: oral) Med Classific ation: Central Nervous System Agents Eliquis 5 mg tablet 3-04 00:00: 00 Yes [id number] 1 tablet 2 TIMES DAILY 1 tablet 2 TIMES DAILY (route: oral) Med Classific ation: Hematolog ical Agents finasteride 5 mg tablet 06-29 00:00: 00 Yes [id number] 1 tablet DAILY 1 tablet DAILY (route: oral) Med Classific ation: Genitouri nary Therapy gabapentin 100 mg capsule 06-29 00:00: 00 Yes [id number] 1 capsule DAILY 1 capsule DAILY (route: oral) Med Classific ation: Central Nervous System Agents gabapentin 300 mg capsule 06-29 00:00: 00 Yes [id number] 1 capsule BEDTIME 1 capsule BEDTIME (route: oral) Med Classific ation: Central Nervous System Agents mirtazapine 45 mg tablet 06-29 00:00: 00 Yes [id number] 1 tablet DAILY 1 tablet DAILY (route: oral) Med Classific ation: Central Nervous System Agents pantoprazol e 40 mg tablet,baltazar yed release 06-29 00:00: 00 10-21 23:59 :00 No [id number] 1 tablet DAILY 1 tablet DAILY (route: oral) Med Classific ation: Gastroint estinal Therapy Agents ropinirole 0.25 mg tablet 06-29 00:00: 00 Yes [id number] 2 tablet DAILY 2 tablet DAILY (route: oral) Med Classific ation: Central Nervous System Agents Rytary 36.25 mg-145 mg capsule,ext ended release 06-29 00:00: 00 Yes [id number] 3 capsule 4 TIMES DAILY 3 capsule 4 TIMES DAILY (route: oral) Med Classific ation: Central Nervous System Agents venlafaxine ER 225 mg tablet,exte nded release 24 hr 06-29 00:00: 00 Yes [id number] 1 tablet DAILY 1 tablet DAILY (route: oral) Med Classific ation: Central Nervous System Agents albuterol sulfate HFA 90 mcg/actuati on aerosol inhaler 06-29 00:00: 00 Yes [id number] 2 puff EVERY 6 HOURS 2 puff EVERY 6 HOURS (route: inhalation ) Med Classific ation: Respirato ry Therapy Agents Breo Ellipta 100 mcg-25 mcg/dose powder for inhalation 3-04 00:00: 00 Yes [id number] 1 inhalat ion DAILY 1 inhalation DAILY (route: inhalation ) Med Classific ation: Respirato ry Therapy Agents pantoprazol e 40 mg tablet,baltazar yed release 3- 00:00: 00 10-21 23:59 :00 No [id number] 1 tablet 2 TIMES DAILY 1 tablet 2 TIMES DAILY (route: oral) Med Classific ation: Gastroint estinal Therapy Agents fluconazole 200 mg tablet - 00:00: 00 Yes [id number] 200 mg DAILY 200 mg DAILY (route: oral) Alternate Route: SUBLINGUA L. Med Classific ation: Anti-Infe ctive Agents Carafate 100 mg/mL oral suspension 10-26 00:00: 00 Yes [id number] 10 mL 4 TIMES DAILY 10 mL 4 TIMES DAILY (route: oral) Med Classific ation: Gastroint estinal Therapy Agents Voquezna 20 mg tablet 10-26 00:00: 00 12-03 00:58 :03.3 47 No [id number] 1 tablet 2 TIMES DAILY 1 tablet 2 TIMES DAILY (route: oral) Med Classific ation: Gastroint estinal Therapy Agents Voquezna 20 mg tablet 10-21 00:00: 00 Yes [id number] 1 tablet 2 TIMES DAILY 1 tablet [...] MAINTAIN SITUATIONAL AWARENESS AND WILL NOTIFY CLINICAL GIS SCIENTIST AND PHYSICIAN/PROVIDER WITH ANY CHANGE IN CONDITION. [code = SKILLED NURSE TO PERFORM ENVIRONMENTAL SAFETY RISK ASSESSMENT AND FALL RISK ASSESSMENT AND PROVIDE INSTRUCTION TO IMPLEMENT ENVIRONMENTAL SAFETY AND FALL PREVENTION STRATEGIES THROUGHOUT THE CERTIFICATION PERIOD. SKILLED NURSE WILL MAINTAIN SITUATIONAL AWARENESS AND WILL NOTIFY CLINICAL GIS SCIENTIST AND PHYSICIAN/PROVIDER WITH ANY CHANGE IN CONDITION.] [...] LASIX PATIENT LIVING SITUATION/CAREGIVER STATUS: [facility] SUMMARIZE SKILLED NEED: [...] RECERTIFIC ATION DEMETRI SLAUGHTER FORMERLY [facility] [id number] 6.25
--- OUTSIDE RECORDS SUMMARY | 2025-04-23 19:00 | XMS_ITS | Clinical Summary ---
Author Organization Unknown Care Team Providers Care School Athletic Director Name Role Phone DARIAN DANGELO, ANYA Unavailable Unavaila aleisha CHRISTENSEN OPERATIONS WELDER/PHYSICAL MEDICINE TEACHER, RENAN Unavailable Unava susie SLAUGHTER RN, DEMETRI Unavailable Unavailable Payers Payer Name Policy Type Policy Number Effective Date Expira tion Date MEDICARE - [facility] - PD [id number] Problems Condition Name Condition Details Condition Category [...] 01-11 00:00: 00 01-18 23:59 :00 No [id number] 1 tablet 2 TIMES DAILY 1 tablet 2 TIMES DAILY (route: oral) Med Classific ation: Anti-Infe ctive Agents lactulose 10 gram/15 mL oral solution 01-11 00:00: 00 04-01 23:59 :00 No [id number] 30 g DAILY 30 g DAILY (route: oral) Med Classific ation: Gastroint estinal Therapy Agents Rytary 36.25 mg-145 mg capsule,ext ended release 13 00:00: 00 04-01 23:59 :00 No [id number] 4 capsule 4 TIMES DAILY 4 capsule 4 TIMES DAILY (route: oral) Med Classific ation: Central Nervous System Agents Breo Ellipta 100 mcg-25 mcg/dose powder for inhalation - 00:00: 00 04-01 23:59 :00 No [id number] 1 inhalat ion ONCE DAILY 1 inhalation ONCE DAILY (route: inhalation ) Med Classific ation: Respirato ry Therapy Agents mirtazapine 45 mg tablet 12-12 00:00: 00 04-01 23:59 :00 No [id number] 1 tablet DAILY 1 tablet DAILY (route: oral) Med Classific ation: Central Nervous System Agents docusate sodium 100 mg capsule 16 00:00: 00 04-01 23:59 :00 No [id number] 1 capsule 2 TIMES DAILY 1 capsule 2 TIMES DAILY (route: oral) Med Classific ation: Gastroint estinal Therapy Agents Eliquis 5 mg tablet 10-26 00:00: 00 04-01 23:59 :00 No [id number] 1 tablet 2 TIMES DAILY 1 tablet 2 TIMES DAILY (route: oral) Med Classific ation: Hematolog ical Agents ferrous sulfate 325 mg (65 mg iron) tablet 10-26 00:00: 00 04-01 23:59 :00 No [id number] 1 tablet DAILY 1 tablet DAILY (route: oral) Med Classific ation: Electroly te Balance-N utritiona l Products finasteride 5 mg tablet 10-26 00:00: 00 04-01 23:59 :00 No [id number] 1 tablet DAILY 1 tablet DAILY (route: oral) Med Classific ation: Genitouri nary Therapy furosemide 40 mg tablet 10-26 00:00: 00 04-01 23:59 :00 No [id number] 1 tablet 2 TIMES DAILY 1 tablet 2 TIMES DAILY (route: oral) Med Classific ation: Cardiovas cular Therapy Agents magnesium 400 mg (as magnesium oxide) tablet 10-26 00:00: 00 04-01 23:59 :00 No [id number] 1 tablet DAILY 1 tablet DAILY (route: oral) Med Classific ation: Electroly te Balance-N utritiona l Products prednisolon e acetate 1 % eye drops,suspe nsion 10-26 00:00: 00 04-01 23:59 :00 No [id number] 1 drops 3 TIMES DAILY 1 drops 3 TIMES DAILY (route: ophthalmic (eye)) Med Classific ation: Ophthalmi c Agents ropinirole 0.25 mg tablet 09-28 00:00: 00 04-01 23:59 :00 No [id number] Per instruc tions DIRECTED Per instructio ns DIRECTED (route: oral) Med Classific ation: Central Nervous System Agents venlafaxine ER 225 mg tablet,exte nded release 24 hr 10-26 00:00: 00 04-01 23:59 :00 No [id number] 1 tablet DAILY 1 tablet DAILY (route: oral) Med Classific ation: Central Nervous System Agents Vitamin D3 125 mcg (5,000 unit) tablet 09-28 00:00: 00 04-01 23:59 :00 No [id number] 1 tablet DAILY 1 tablet DAILY (route: oral) Med Classific ation: Electroly te Balance-N utritiona l Products clonazepam 0.5 mg tablet 2023-04 0-11 00:00: 00 04-01 23:59 :00 No [id number] Per instruc tions BEDTIME Per instructio ns BEDTIME (route: oral) Med Classific ation: Central Nervous System Agents acetaminoph en 325 mg tablet 04-30 00:00: 00 06-27 23:59 :00 No [id number] 2 tablet EVERY 4 HOURS 2 tablet EVERY 4 HOURS (route: oral) Med Classific ation: Analgesic , Anti-infl ammatory or Antipyret ic albuterol sulfate HFA 90 mcg/actuati on aerosol inhaler 04-30 00:00: 00 06-27 23:59 :00 No [id number] 2 puff EVERY 6 HOURS 2 puff EVERY 6 HOURS (route: inhalation ) Med Classific ation: Respirato ry Therapy Agents amantadine HCl 100 mg tablet 04-30 00:00: 00 06-27 23:59 :00 No [id number] 1 tablet DAILY 1 tablet DAILY (route: oral) Med Classific ation: Central Nervous System Agents amoxicillin 500 mg capsule 04-30 00:00: 00 06-27 23:59 :00 No [id number] 4 capsule DIRECTED 4 capsule DIRECTED (route: oral) Med Classific ation: Anti-Infe ctive Agents Breo Ellipta 100 mcg-25 mcg/dose powder for inhalation 04-30 00:00: 00 06-27 23:59 :00 No [id number] 1 inhalat ion DAILY 1 inhalation DAILY (route: inhalation ) Med Classific ation: Respirato ry Therapy Agents clonazepam 0.5 mg tablet 04-30 00:00: 00 06-27 23:59 :00 No [id number] 1 tablet BEDTIME 1 tablet BEDTIME (route: oral) Med Classific ation: Central Nervous System Agents docusate sodium 100 mg capsule 04-30 00:00: 00 06-27 23:59 :00 No [id number] 1 capsule 2 TIMES DAILY 1 capsule 2 TIMES DAILY (route: oral) Med Classific ation: Gastroint estinal Therapy Agents Eliquis 5 mg tablet 04-30 00:00: 00 06-27 23:59 :00 No [id number] 1 tablet 2 TIMES DAILY 1 tablet 2 TIMES DAILY (route: oral) Med Classific ation: Hematolog ical Agents finasteride 5 mg tablet 04-30 00:00: 00 06-27 23:59 :00 No [id number] 1 tablet DAILY 1 tablet DAILY (route: oral) Med Classific ation: Genitouri nary Therapy gabapentin 100 mg capsule 04-30 00:00: 00 06-27 23:59 :00 No [id number] 1 capsule DAILY 1 capsule DAILY (route: oral) Med Classific ation: Central Nervous System Agents gabapentin 300 mg capsule - 00:00: 00 06-27 23:59 :00 No [id number] 1 capsule BEDTIME 1 capsule BEDTIME (route: oral) Med Classific ation: Central Nervous System Agents mirtazapine 45 mg tablet - 00:00: 00 06-27 23:59 :00 No [id number] 1 tablet BEDTIME 1 tablet BEDTIME (route: oral) Med Classific ation: Central Nervous System Agents pantoprazol e 40 mg tablet,baltazar yed release - 00:00: 00 06-27 23:59 :00 No [id number] 1 tablet DAILY 1 tablet DAILY (route: oral) Med Classific ation: Gastroint estinal Therapy Agents ropinirole 0.25 mg tablet 04-30 00:00: 00 06-27 23:59 :00 No [id number] 1-4 tablet DIRECTED 1-4 tablet DIRECTED (route: oral) Med Classific ation: Central Nervous System Agents Rytary 36.25 mg-145 mg capsule,ext ended release 04-30 00:00: 00 06-27 23:59 :00 No [id number] 2 capsule 4 TIMES DAILY 2 capsule 4 TIMES DAILY (route: oral) Med Classific ation: Central Nervous System Agents venlafaxine ER 225 mg tablet,exte nded release 24 hr - 00:00: 00 06-27 23:59 :00 No [id number] 1 tablet BEDTIME 1 tablet BEDTIME (route: oral) Med Classific ation: Central Nervous System Agents amantadine HCl 100 mg capsule 3-04 00:00: 00 Yes [id number] 1 capsule DAILY 1 capsule DAILY (route: oral) Med Classific ation: Central Nervous System Agents clonazepam 0.5 mg tablet 3-04 00:00: 00 Yes [id number] 1 tablet BEDTIME 1 tablet BEDTIME (route: oral) Med Classific ation: Central Nervous System Agents Eliquis 5 mg tablet 3-04 00:00: 00 Yes [id number] 1 tablet 2 TIMES DAILY 1 tablet 2 TIMES DAILY (route: oral) Med Classific ation: Hematolog ical Agents finasteride 5 mg tablet 06-29 00:00: 00 Yes [id number] 1 tablet DAILY 1 tablet DAILY (route: oral) Med Classific ation: Genitouri nary Therapy gabapentin 100 mg capsule 06-29 00:00: 00 Yes [id number] 1 capsule DAILY 1 capsule DAILY (route: oral) Med Classific ation: Central Nervous System Agents gabapentin 300 mg capsule 06-29 00:00: 00 Yes [id number] 1 capsule BEDTIME 1 capsule BEDTIME (route: oral) Med Classific ation: Central Nervous System Agents mirtazapine 45 mg tablet 06-29 00:00: 00 Yes [id number] 1 tablet DAILY 1 tablet DAILY (route: oral) Med Classific ation: Central Nervous System Agents pantoprazol e 40 mg tablet,baltazar yed release 06-29 00:00: 00 10-21 23:59 :00 No [id number] 1 tablet DAILY 1 tablet DAILY (route: oral) Med Classific ation: Gastroint estinal Therapy Agents ropinirole 0.25 mg tablet 06-29 00:00: 00 Yes [id number] 2 tablet DAILY 2 tablet DAILY (route: oral) Med Classific ation: Central Nervous System Agents Rytary 36.25 mg-145 mg capsule,ext ended release 06-29 00:00: 00 Yes [id number] 3 capsule 4 TIMES DAILY 3 capsule 4 TIMES DAILY (route: oral) Med Classific ation: Central Nervous System Agents venlafaxine ER 225 mg tablet,exte nded release 24 hr 06-29 00:00: 00 Yes [id number] 1 tablet DAILY 1 tablet DAILY (route: oral) Med Classific ation: Central Nervous System Agents albuterol sulfate HFA 90 mcg/actuati on aerosol inhaler 06-29 00:00: 00 Yes [id number] 2 puff EVERY 6 HOURS 2 puff EVERY 6 HOURS (route: inhalation ) Med Classific ation: Respirato ry Therapy Agents Breo Ellipta 100 mcg-25 mcg/dose powder for inhalation 3-04 00:00: 00 Yes [id number] 1 inhalat ion DAILY 1 inhalation DAILY (route: inhalation ) Med Classific ation: Respirato ry Therapy Agents pantoprazol e 40 mg tablet,baltazar yed release 3- 00:00: 00 10-21 23:59 :00 No [id number] 1 tablet 2 TIMES DAILY 1 tablet 2 TIMES DAILY (route: oral) Med Classific ation: Gastroint estinal Therapy Agents fluconazole 200 mg tablet - 00:00: 00 Yes [id number] 200 mg DAILY 200 mg DAILY (route: oral) Alternate Route: SUBLINGUA L. Med Classific ation: Anti-Infe ctive Agents Carafate 100 mg/mL oral suspension 10-26 00:00: 00 Yes [id number] 10 mL 4 TIMES DAILY 10 mL 4 TIMES DAILY (route: oral) Med Classific ation: Gastroint estinal Therapy Agents Voquezna 20 mg tablet 10-26 00:00: 00 12-03 00:58 :03.3 47 No [id number] 1 tablet 2 TIMES DAILY 1 tablet 2 TIMES DAILY (route: oral) Med Classific ation: Gastroint estinal Therapy Agents Voquezna 20 mg tablet 10-21 00:00: 00 Yes [id number] 1 tablet 2 TIMES DAILY 1 tablet [...] MAINTAIN SITUATIONAL AWARENESS AND WILL NOTIFY CLINICAL STAKING TECHNICIAN AND PHYSICIAN/PROVIDER WITH ANY CHANGE IN CONDITION. [code = SKILLED NURSE TO PERFORM ENVIRONMENTAL SAFETY RISK ASSESSMENT AND FALL RISK ASSESSMENT AND PROVIDE INSTRUCTION TO IMPLEMENT ENVIRONMENTAL SAFETY AND FALL PREVENTION STRATEGIES THROUGHOUT THE CERTIFICATION PERIOD. SKILLED NURSE WILL MAINTAIN SITUATIONAL AWARENESS AND WILL NOTIFY CLINICAL STAKING TECHNICIAN AND PHYSICIAN/PROVIDER WITH ANY CHANGE IN [...] LASIX PATIENT LIVING SITUATION/CAREGIVER STATUS[facility] SKILLED NEED: DISEASE MANAGEMENT [...] DEMETRI SLAUGHTER [facility]LY [facility] [id number] 6.25
--- OUTSIDE RECORDS SUMMARY | 2025-04-23 19:00 | XMS_ITS | Clinical Summary ---
Author Organization Unknown Care Team Providers Care Hat Cleaner Name Role Phone DARIAN DANGELO, ANYA Unavailable Unavaila aleisha CHRISTENSEN BOBBIN CLEANING MACHINE OPERATOR/DIESEL ENGINE MECHANIC, RENAN Unavailable Unava susie SLAUGHTER RN, DEMETRI Unavailable Unavailable Payers Payer Name Policy Type Policy Number Effective Date Expira tion Date MEDICARE - [facility] [place] - PD [id number] Problems Condition Name Condition Details Condition Category [...] 01-11 00:00: 00 01-18 23:59 :00 No [id number] 1 tablet 2 TIMES DAILY 1 tablet 2 TIMES DAILY (route: oral) Med Classific ation: Anti-Infe ctive Agents lactulose 10 gram/15 mL oral solution 01-11 00:00: 00 04-01 23:59 :00 No [id number] 30 g DAILY 30 g DAILY (route: oral) Med Classific ation: Gastroint estinal Therapy Agents Rytary 36.25 mg-145 mg capsule,ext ended release 13 00:00: 00 04-01 23:59 :00 No [id number] 4 capsule 4 TIMES DAILY 4 capsule 4 TIMES DAILY (route: oral) Med Classific ation: Central Nervous System Agents Breo Ellipta 100 mcg-25 mcg/dose powder for inhalation - 00:00: 00 04-01 23:59 :00 No [id number] 1 inhalat ion ONCE DAILY 1 inhalation ONCE DAILY (route: inhalation ) Med Classific ation: Respirato ry Therapy Agents mirtazapine 45 mg tablet 12-12 00:00: 00 04-01 23:59 :00 No [id number] 1 tablet DAILY 1 tablet DAILY (route: oral) Med Classific ation: Central Nervous System Agents docusate sodium 100 mg capsule 16 00:00: 00 04-01 23:59 :00 No [id number] 1 capsule 2 TIMES DAILY 1 capsule 2 TIMES DAILY (route: oral) Med Classific ation: Gastroint estinal Therapy Agents Eliquis 5 mg tablet 10-26 00:00: 00 04-01 23:59 :00 No [id number] 1 tablet 2 TIMES DAILY 1 tablet 2 TIMES DAILY (route: oral) Med Classific ation: Hematolog ical Agents ferrous sulfate 325 mg (65 mg iron) tablet 10-26 00:00: 00 04-01 23:59 :00 No [id number] 1 tablet DAILY 1 tablet DAILY (route: oral) Med Classific ation: Electroly te Balance-N utritiona l Products finasteride 5 mg tablet 10-26 00:00: 00 04-01 23:59 :00 No [id number] 1 tablet DAILY 1 tablet DAILY (route: oral) Med Classific ation: Genitouri nary Therapy furosemide 40 mg tablet 10-26 00:00: 00 04-01 23:59 :00 No [id number] 1 tablet 2 TIMES DAILY 1 tablet 2 TIMES DAILY (route: oral) Med Classific ation: Cardiovas cular Therapy Agents magnesium 400 mg (as magnesium oxide) tablet 10-26 00:00: 00 04-01 23:59 :00 No [id number] 1 tablet DAILY 1 tablet DAILY (route: oral) Med Classific ation: Electroly te Balance-N utritiona l Products prednisolon e acetate 1 % eye drops,suspe nsion 10-26 00:00: 00 04-01 23:59 :00 No [id number] 1 drops 3 TIMES DAILY 1 drops 3 TIMES DAILY (route: ophthalmic (eye)) Med Classific ation: Ophthalmi c Agents ropinirole 0.25 mg tablet 09-28 00:00: 00 04-01 23:59 :00 No [id number] Per instruc tions DIRECTED Per instructio ns DIRECTED (route: oral) Med Classific ation: Central Nervous System Agents venlafaxine ER 225 mg tablet,exte nded release 24 hr 10-26 00:00: 00 04-01 23:59 :00 No [id number] 1 tablet DAILY 1 tablet DAILY (route: oral) Med Classific ation: Central Nervous System Agents Vitamin D3 125 mcg (5,000 unit) tablet 09-28 00:00: 00 04-01 23:59 :00 No [id number] 1 tablet DAILY 1 tablet DAILY (route: oral) Med Classific ation: Electroly te Balance-N utritiona l Products clonazepam 0.5 mg tablet 2023-04 0-11 00:00: 00 04-01 23:59 :00 No [id number] Per instruc tions BEDTIME Per instructio ns BEDTIME (route: oral) Med Classific ation: Central Nervous System Agents acetaminoph en 325 mg tablet 04-30 00:00: 00 06-27 23:59 :00 No [id number] 2 tablet EVERY 4 HOURS 2 tablet EVERY 4 HOURS (route: oral) Med Classific ation: Analgesic , Anti-infl ammatory or Antipyret ic albuterol sulfate HFA 90 mcg/actuati on aerosol inhaler 04-30 00:00: 00 06-27 23:59 :00 No [id number] 2 puff EVERY 6 HOURS 2 puff EVERY 6 HOURS (route: inhalation ) Med Classific ation: Respirato ry Therapy Agents amantadine HCl 100 mg tablet 04-30 00:00: 00 06-27 23:59 :00 No [id number] 1 tablet DAILY 1 tablet DAILY (route: oral) Med Classific ation: Central Nervous System Agents amoxicillin 500 mg capsule 04-30 00:00: 00 06-27 23:59 :00 No [id number] 4 capsule DIRECTED 4 capsule DIRECTED (route: oral) Med Classific ation: Anti-Infe ctive Agents Breo Ellipta 100 mcg-25 mcg/dose powder for inhalation 04-30 00:00: 00 06-27 23:59 :00 No [id number] 1 inhalat ion DAILY 1 inhalation DAILY (route: inhalation ) Med Classific ation: Respirato ry Therapy Agents clonazepam 0.5 mg tablet 04-30 00:00: 00 06-27 23:59 :00 No [id number] 1 tablet BEDTIME 1 tablet BEDTIME (route: oral) Med Classific ation: Central Nervous System Agents docusate sodium 100 mg capsule 04-30 00:00: 00 06-27 23:59 :00 No [id number] 1 capsule 2 TIMES DAILY 1 capsule 2 TIMES DAILY (route: oral) Med Classific ation: Gastroint estinal Therapy Agents Eliquis 5 mg tablet 04-30 00:00: 00 06-27 23:59 :00 No [id number] 1 tablet 2 TIMES DAILY 1 tablet 2 TIMES DAILY (route: oral) Med Classific ation: Hematolog ical Agents finasteride 5 mg tablet 04-30 00:00: 00 06-27 23:59 :00 No [id number] 1 tablet DAILY 1 tablet DAILY (route: oral) Med Classific ation: Genitouri nary Therapy gabapentin 100 mg capsule 04-30 00:00: 00 06-27 23:59 :00 No [id number] 1 capsule DAILY 1 capsule DAILY (route: oral) Med Classific ation: Central Nervous System Agents gabapentin 300 mg capsule - 00:00: 00 06-27 23:59 :00 No [id number] 1 capsule BEDTIME 1 capsule BEDTIME (route: oral) Med Classific ation: Central Nervous System Agents mirtazapine 45 mg tablet - 00:00: 00 06-27 23:59 :00 No [id number] 1 tablet BEDTIME 1 tablet BEDTIME (route: oral) Med Classific ation: Central Nervous System Agents pantoprazol e 40 mg tablet,baltazar yed release - 00:00: 00 06-27 23:59 :00 No [id number] 1 tablet DAILY 1 tablet DAILY (route: oral) Med Classific ation: Gastroint estinal Therapy Agents ropinirole 0.25 mg tablet 04-30 00:00: 00 06-27 23:59 :00 No [id number] 1-4 tablet DIRECTED 1-4 tablet DIRECTED (route: oral) Med Classific ation: Central Nervous System Agents Rytary 36.25 mg-145 mg capsule,ext ended release 04-30 00:00: 00 06-27 23:59 :00 No [id number] 2 capsule 4 TIMES DAILY 2 capsule 4 TIMES DAILY (route: oral) Med Classific ation: Central Nervous System Agents venlafaxine ER 225 mg tablet,exte nded release 24 hr - 00:00: 00 06-27 23:59 :00 No [id number] 1 tablet BEDTIME 1 tablet BEDTIME (route: oral) Med Classific ation: Central Nervous System Agents amantadine HCl 100 mg capsule 3-04 00:00: 00 Yes [id number] 1 capsule DAILY 1 capsule DAILY (route: oral) Med Classific ation: Central Nervous System Agents clonazepam 0.5 mg tablet 3-04 00:00: 00 Yes [id number] 1 tablet BEDTIME 1 tablet BEDTIME (route: oral) Med Classific ation: Central Nervous System Agents Eliquis 5 mg tablet 3-04 00:00: 00 Yes [id number] 1 tablet 2 TIMES DAILY 1 tablet 2 TIMES DAILY (route: oral) Med Classific ation: Hematolog ical Agents finasteride 5 mg tablet 06-29 00:00: 00 Yes [id number] 1 tablet DAILY 1 tablet DAILY (route: oral) Med Classific ation: Genitouri nary Therapy gabapentin 100 mg capsule 06-29 00:00: 00 Yes [id number] 1 capsule DAILY 1 capsule DAILY (route: oral) Med Classific ation: Central Nervous System Agents gabapentin 300 mg capsule 06-29 00:00: 00 Yes [id number] 1 capsule BEDTIME 1 capsule BEDTIME (route: oral) Med Classific ation: Central Nervous System Agents mirtazapine 45 mg tablet 06-29 00:00: 00 Yes [id number] 1 tablet DAILY 1 tablet DAILY (route: oral) Med Classific ation: Central Nervous System Agents pantoprazol e 40 mg tablet,baltazar yed release 06-29 00:00: 00 10-21 23:59 :00 No [id number] 1 tablet DAILY 1 tablet DAILY (route: oral) Med Classific ation: Gastroint estinal Therapy Agents ropinirole 0.25 mg tablet 06-29 00:00: 00 Yes [id number] 2 tablet DAILY 2 tablet DAILY (route: oral) Med Classific ation: Central Nervous System Agents Rytary 36.25 mg-145 mg capsule,ext ended release 06-29 00:00: 00 Yes [id number] 3 capsule 4 TIMES DAILY 3 capsule 4 TIMES DAILY (route: oral) Med Classific ation: Central Nervous System Agents venlafaxine ER 225 mg tablet,exte nded release 24 hr 06-29 00:00: 00 Yes [id number] 1 tablet DAILY 1 tablet DAILY (route: oral) Med Classific ation: Central Nervous System Agents albuterol sulfate HFA 90 mcg/actuati on aerosol inhaler 06-29 00:00: 00 Yes [id number] 2 puff EVERY 6 HOURS 2 puff EVERY 6 HOURS (route: inhalation ) Med Classific ation: Respirato ry Therapy Agents Breo Ellipta 100 mcg-25 mcg/dose powder for inhalation 3-04 00:00: 00 Yes [id number] 1 inhalat ion DAILY 1 inhalation DAILY (route: inhalation ) Med Classific ation: Respirato ry Therapy Agents pantoprazol e 40 mg tablet,baltazar yed release 3- 00:00: 00 10-21 23:59 :00 No [id number] 1 tablet 2 TIMES DAILY 1 tablet 2 TIMES DAILY (route: oral) Med Classific ation: Gastroint estinal Therapy Agents fluconazole 200 mg tablet - 00:00: 00 Yes [id number] 200 mg DAILY 200 mg DAILY (route: oral) Alternate Route: SUBLINGUA L. Med Classific ation: Anti-Infe ctive Agents Carafate 100 mg/mL oral suspension 10-26 00:00: 00 Yes [id number] 10 mL 4 TIMES DAILY 10 mL 4 TIMES DAILY (route: oral) Med Classific ation: Gastroint estinal Therapy Agents Voquezna 20 mg tablet 10-26 00:00: 00 12-03 00:58 :03.3 47 No [id number] 1 tablet 2 TIMES DAILY 1 tablet 2 TIMES DAILY (route: oral) Med Classific ation: Gastroint estinal Therapy Agents Voquezna 20 mg tablet 10-21 00:00: 00 Yes [id number] 1 tablet 2 TIMES DAILY 1 tablet [...] MAINTAIN SITUATIONAL AWARENESS AND WILL NOTIFY CLINICAL UMBRELLA TIPPER AND PHYSICIAN/PROVIDER WITH ANY CHANGE IN CONDITION. [code = SKILLED NURSE TO PERFORM ENVIRONMENTAL SAFETY RISK ASSESSMENT AND FALL RISK ASSESSMENT AND PROVIDE INSTRUCTION TO IMPLEMENT ENVIRONMENTAL SAFETY AND FALL PREVENTION STRATEGIES THROUGHOUT THE CERTIFICATION PERIOD. SKILLED NURSE WILL MAINTAIN SITUATIONAL AWARENESS AND WILL NOTIFY CLINICAL UMBRELLA TIPPER AND PHYSICIAN/PROVIDER WITH ANY CHANGE IN CONDITION.] [...] L[facility] PATIENT LIVING SITUATION/CAREGIVER STATUS: [facility] WITH SPOUSE SUMMARIZE SKILLED NEED: [...] 00:00:00 Outpatient RECERTIFIC ATION DEMETRI SLAUGHTER [facility] [id number] 6.25
--- OUTSIDE RECORDS SUMMARY | 2025-04-23 19:00 | XMS_ITS | Clinical Summary ---
Author Organization Unknown Care Team Providers Care Button Clamper Name Role Phone DARIAN DANGELO, ANYA Unavailable Unavaila aleihsa CHRISTENSEN DIGITAL MARKETING ASSISTANT/OCCUPATIONAL THERAPY DEPARTMENT CHAIR, RENAN Unavailable Unava susie SLAUGHTER RN, DEMETRI Unavailable Unavailable Payers Payer Name Policy Type Policy Number Effective Date Expira tion Date MEDICARE - [facility] - PD [id number] Problems Condition Name Condition Details Condition Category [...] 01-11 00:00: 00 01-18 23:59 :00 No [id number] 1 tablet 2 TIMES DAILY 1 tablet 2 TIMES DAILY (route: oral) Med Classific ation: Anti-Infe ctive Agents lactulose 10 gram/15 mL oral solution 01-11 00:00: 00 04-01 23:59 :00 No [id number] 30 g DAILY 30 g DAILY (route: oral) Med Classific ation: Gastroint estinal Therapy Agents Rytary 36.25 mg-145 mg capsule,ext ended release 13 00:00: 00 04-01 23:59 :00 No [id number] 4 capsule 4 TIMES DAILY 4 capsule 4 TIMES DAILY (route: oral) Med Classific ation: Central Nervous System Agents Breo Ellipta 100 mcg-25 mcg/dose powder for inhalation - 00:00: 00 04-01 23:59 :00 No [id number] 1 inhalat ion ONCE DAILY 1 inhalation ONCE DAILY (route: inhalation ) Med Classific ation: Respirato ry Therapy Agents mirtazapine 45 mg tablet 12-12 00:00: 00 04-01 23:59 :00 No [id number] 1 tablet DAILY 1 tablet DAILY (route: oral) Med Classific ation: Central Nervous System Agents docusate sodium 100 mg capsule 16 00:00: 00 04-01 23:59 :00 No [id number] 1 capsule 2 TIMES DAILY 1 capsule 2 TIMES DAILY (route: oral) Med Classific ation: Gastroint estinal Therapy Agents Eliquis 5 mg tablet 10-26 00:00: 00 04-01 23:59 :00 No [id number] 1 tablet 2 TIMES DAILY 1 tablet 2 TIMES DAILY (route: oral) Med Classific ation: Hematolog ical Agents ferrous sulfate 325 mg (65 mg iron) tablet 10-26 00:00: 00 04-01 23:59 :00 No [id number] 1 tablet DAILY 1 tablet DAILY (route: oral) Med Classific ation: Electroly te Balance-N utritiona l Products finasteride 5 mg tablet 10-26 00:00: 00 04-01 23:59 :00 No [id number] 1 tablet DAILY 1 tablet DAILY (route: oral) Med Classific ation: Genitouri nary Therapy furosemide 40 mg tablet 10-26 00:00: 00 04-01 23:59 :00 No [id number] 1 tablet 2 TIMES DAILY 1 tablet 2 TIMES DAILY (route: oral) Med Classific ation: Cardiovas cular Therapy Agents magnesium 400 mg (as magnesium oxide) tablet 10-26 00:00: 00 04-01 23:59 :00 No [id number] 1 tablet DAILY 1 tablet DAILY (route: oral) Med Classific ation: Electroly te Balance-N utritiona l Products prednisolon e acetate 1 % eye drops,suspe nsion 10-26 00:00: 00 04-01 23:59 :00 No [id number] 1 drops 3 TIMES DAILY 1 drops 3 TIMES DAILY (route: ophthalmic (eye)) Med Classific ation: Ophthalmi c Agents ropinirole 0.25 mg tablet 09-28 00:00: 00 04-01 23:59 :00 No [id number] Per instruc tions DIRECTED Per instructio ns DIRECTED (route: oral) Med Classific ation: Central Nervous System Agents venlafaxine ER 225 mg tablet,exte nded release 24 hr 10-26 00:00: 00 04-01 23:59 :00 No [id number] 1 tablet DAILY 1 tablet DAILY (route: oral) Med Classific ation: Central Nervous System Agents Vitamin D3 125 mcg (5,000 unit) tablet 09-28 00:00: 00 04-01 23:59 :00 No [id number] 1 tablet DAILY 1 tablet DAILY (route: oral) Med Classific ation: Electroly te Balance-N utritiona l Products clonazepam 0.5 mg tablet 2023-04 0-11 00:00: 00 04-01 23:59 :00 No [id number] Per instruc tions BEDTIME Per instructio ns BEDTIME (route: oral) Med Classific ation: Central Nervous System Agents acetaminoph en 325 mg tablet 04-30 00:00: 00 06-27 23:59 :00 No [id number] 2 tablet EVERY 4 HOURS 2 tablet EVERY 4 HOURS (route: oral) Med Classific ation: Analgesic , Anti-infl ammatory or Antipyret ic albuterol sulfate HFA 90 mcg/actuati on aerosol inhaler 04-30 00:00: 00 06-27 23:59 :00 No [id number] 2 puff EVERY 6 HOURS 2 puff EVERY 6 HOURS (route: inhalation ) Med Classific ation: Respirato ry Therapy Agents amantadine HCl 100 mg tablet 04-30 00:00: 00 06-27 23:59 :00 No [id number] 1 tablet DAILY 1 tablet DAILY (route: oral) Med Classific ation: Central Nervous System Agents amoxicillin 500 mg capsule 04-30 00:00: 00 06-27 23:59 :00 No [id number] 4 capsule DIRECTED 4 capsule DIRECTED (route: oral) Med Classific ation: Anti-Infe ctive Agents Breo Ellipta 100 mcg-25 mcg/dose powder for inhalation 04-30 00:00: 00 06-27 23:59 :00 No [id number] 1 inhalat ion DAILY 1 inhalation DAILY (route: inhalation ) Med Classific ation: Respirato ry Therapy Agents clonazepam 0.5 mg tablet 04-30 00:00: 00 06-27 23:59 :00 No [id number] 1 tablet BEDTIME 1 tablet BEDTIME (route: oral) Med Classific ation: Central Nervous System Agents docusate sodium 100 mg capsule 04-30 00:00: 00 06-27 23:59 :00 No [id number] 1 capsule 2 TIMES DAILY 1 capsule 2 TIMES DAILY (route: oral) Med Classific ation: Gastroint estinal Therapy Agents Eliquis 5 mg tablet 04-30 00:00: 00 06-27 23:59 :00 No [id number] 1 tablet 2 TIMES DAILY 1 tablet 2 TIMES DAILY (route: oral) Med Classific ation: Hematolog ical Agents finasteride 5 mg tablet 04-30 00:00: 00 06-27 23:59 :00 No [id number] 1 tablet DAILY 1 tablet DAILY (route: oral) Med Classific ation: Genitouri nary Therapy gabapentin 100 mg capsule 04-30 00:00: 00 06-27 23:59 :00 No [id number] 1 capsule DAILY 1 capsule DAILY (route: oral) Med Classific ation: Central Nervous System Agents gabapentin 300 mg capsule - 00:00: 00 06-27 23:59 :00 No [id number] 1 capsule BEDTIME 1 capsule BEDTIME (route: oral) Med Classific ation: Central Nervous System Agents mirtazapine 45 mg tablet - 00:00: 00 06-27 23:59 :00 No [id number] 1 tablet BEDTIME 1 tablet BEDTIME (route: oral) Med Classific ation: Central Nervous System Agents pantoprazol e 40 mg tablet,baltazar yed release - 00:00: 00 06-27 23:59 :00 No [id number] 1 tablet DAILY 1 tablet DAILY (route: oral) Med Classific ation: Gastroint estinal Therapy Agents ropinirole 0.25 mg tablet 04-30 00:00: 00 06-27 23:59 :00 No [id number] 1-4 tablet DIRECTED 1-4 tablet DIRECTED (route: oral) Med Classific ation: Central Nervous System Agents Rytary 36.25 mg-145 mg capsule,ext ended release 04-30 00:00: 00 06-27 23:59 :00 No [id number] 2 capsule 4 TIMES DAILY 2 capsule 4 TIMES DAILY (route: oral) Med Classific ation: Central Nervous System Agents venlafaxine ER 225 mg tablet,exte nded release 24 hr - 00:00: 00 06-27 23:59 :00 No [id number] 1 tablet BEDTIME 1 tablet BEDTIME (route: oral) Med Classific ation: Central Nervous System Agents amantadine HCl 100 mg capsule 3-04 00:00: 00 Yes [id number] 1 capsule DAILY 1 capsule DAILY (route: oral) Med Classific ation: Central Nervous System Agents clonazepam 0.5 mg tablet 3-04 00:00: 00 Yes [id number] 1 tablet BEDTIME 1 tablet BEDTIME (route: oral) Med Classific ation: Central Nervous System Agents Eliquis 5 mg tablet 3-04 00:00: 00 Yes [id number] 1 tablet 2 TIMES DAILY 1 tablet 2 TIMES DAILY (route: oral) Med Classific ation: Hematolog ical Agents finasteride 5 mg tablet 06-29 00:00: 00 Yes [id number] 1 tablet DAILY 1 tablet DAILY (route: oral) Med Classific ation: Genitouri nary Therapy gabapentin 100 mg capsule 06-29 00:00: 00 Yes [id number] 1 capsule DAILY 1 capsule DAILY (route: oral) Med Classific ation: Central Nervous System Agents gabapentin 300 mg capsule 06-29 00:00: 00 Yes [id number] 1 capsule BEDTIME 1 capsule BEDTIME (route: oral) Med Classific ation: Central Nervous System Agents mirtazapine 45 mg tablet 06-29 00:00: 00 Yes [id number] 1 tablet DAILY 1 tablet DAILY (route: oral) Med Classific ation: Central Nervous System Agents pantoprazol e 40 mg tablet,baltazar yed release 06-29 00:00: 00 10-21 23:59 :00 No [id number] 1 tablet DAILY 1 tablet DAILY (route: oral) Med Classific ation: Gastroint estinal Therapy Agents ropinirole 0.25 mg tablet 06-29 00:00: 00 Yes [id number] 2 tablet DAILY 2 tablet DAILY (route: oral) Med Classific ation: Central Nervous System Agents Rytary 36.25 mg-145 mg capsule,ext ended release 06-29 00:00: 00 Yes [id number] 3 capsule 4 TIMES DAILY 3 capsule 4 TIMES DAILY (route: oral) Med Classific ation: Central Nervous System Agents venlafaxine ER 225 mg tablet,exte nded release 24 hr 06-29 00:00: 00 Yes [id number] 1 tablet DAILY 1 tablet DAILY (route: oral) Med Classific ation: Central Nervous System Agents albuterol sulfate HFA 90 mcg/actuati on aerosol inhaler 06-29 00:00: 00 Yes [id number] 2 puff EVERY 6 HOURS 2 puff EVERY 6 HOURS (route: inhalation ) Med Classific ation: Respirato ry Therapy Agents Breo Ellipta 100 mcg-25 mcg/dose powder for inhalation 3-04 00:00: 00 Yes [id number] 1 inhalat ion DAILY 1 inhalation DAILY (route: inhalation ) Med Classific ation: Respirato ry Therapy Agents pantoprazol e 40 mg tablet,baltazar yed release 3- 00:00: 00 10-21 23:59 :00 No [id number] 1 tablet 2 TIMES DAILY 1 tablet 2 TIMES DAILY (route: oral) Med Classific ation: Gastroint estinal Therapy Agents fluconazole 200 mg tablet - 00:00: 00 Yes [id number] 200 mg DAILY 200 mg DAILY (route: oral) Alternate Route: SUBLINGUA L. Med Classific ation: Anti-Infe ctive Agents Carafate 100 mg/mL oral suspension 10-26 00:00: 00 Yes [id number] 10 mL 4 TIMES DAILY 10 mL 4 TIMES DAILY (route: oral) Med Classific ation: Gastroint estinal Therapy Agents Voquezna 20 mg tablet 10-26 00:00: 00 12-03 00:58 :03.3 47 No [id number] 1 tablet 2 TIMES DAILY 1 tablet 2 TIMES DAILY (route: oral) Med Classific ation: Gastroint estinal Therapy Agents Voquezna 20 mg tablet 10-21 00:00: 00 Yes [id number] 1 tablet 2 TIMES DAILY 1 tablet [...] MAINTAIN SITUATIONAL AWARENESS AND WILL NOTIFY CLINICAL LIME FILTER OPERATOR AND PHYSICIAN/PROVIDER WITH ANY CHANGE IN CONDITION. [code = SKILLED NURSE TO PERFORM ENVIRONMENTAL SAFETY RISK ASSESSMENT AND FALL RISK ASSESSMENT AND PROVIDE INSTRUCTION TO IMPLEMENT ENVIRONMENTAL SAFETY AND FALL PREVENTION STRATEGIES THROUGHOUT THE CERTIFICATION PERIOD. SKILLED NURSE WILL MAINTAIN SITUATIONAL AWARENESS AND WILL NOTIFY CLINICAL LIME FILTER OPERATOR AND PHYSICIAN/PROVIDER WITH ANY CHANGE IN [...] RECERTIFIC ATION DEMETRI SLAUGHTER [facility] [id number] 6.25
--- OUTSIDE RECORDS SUMMARY | 2025-04-23 19:00 | XMS_ITS | Clinical Summary ---
Author Organization Unknown Care Team Providers Care Material Preparation Worker Name Role Phone DARIAN DANGELO, ANYA Unavailable Unavaila aleisha CHRISTENSEN CIVIL PREPAREDNESS COORDINATOR/ADVANCED MANUFACTURING CONSULTANT, RENAN Unavailable Unava susie SLAUGHTER RN, DEMETRI Unavailable Unavailable Payers Payer Name Policy Type Policy Number Effective Date Expira tion Date MEDICARE - [facility] - PD [id number] Problems Condition Name Condition Details Condition Category [...] 01-11 00:00: 00 01-18 23:59 :00 No [id number] 1 tablet 2 TIMES DAILY 1 tablet 2 TIMES DAILY (route: oral) Med Classific ation: Anti-Infe ctive Agents lactulose 10 gram/15 mL oral solution 01-11 00:00: 00 04-01 23:59 :00 No [id number] 30 g DAILY 30 g DAILY (route: oral) Med Classific ation: Gastroint estinal Therapy Agents Rytary 36.25 mg-145 mg capsule,ext ended release 13 00:00: 00 04-01 23:59 :00 No [id number] 4 capsule 4 TIMES DAILY 4 capsule 4 TIMES DAILY (route: oral) Med Classific ation: Central Nervous System Agents Breo Ellipta 100 mcg-25 mcg/dose powder for inhalation - 00:00: 00 04-01 23:59 :00 No [id number] 1 inhalat ion ONCE DAILY 1 inhalation ONCE DAILY (route: inhalation ) Med Classific ation: Respirato ry Therapy Agents mirtazapine 45 mg tablet 12-12 00:00: 00 04-01 23:59 :00 No [id number] 1 tablet DAILY 1 tablet DAILY (route: oral) Med Classific ation: Central Nervous System Agents docusate sodium 100 mg capsule 16 00:00: 00 04-01 23:59 :00 No [id number] 1 capsule 2 TIMES DAILY 1 capsule 2 TIMES DAILY (route: oral) Med Classific ation: Gastroint estinal Therapy Agents Eliquis 5 mg tablet 10-26 00:00: 00 04-01 23:59 :00 No [id number] 1 tablet 2 TIMES DAILY 1 tablet 2 TIMES DAILY (route: oral) Med Classific ation: Hematolog ical Agents ferrous sulfate 325 mg (65 mg iron) tablet 10-26 00:00: 00 04-01 23:59 :00 No [id number] 1 tablet DAILY 1 tablet DAILY (route: oral) Med Classific ation: Electroly te Balance-N utritiona l Products finasteride 5 mg tablet 10-26 00:00: 00 04-01 23:59 :00 No [id number] 1 tablet DAILY 1 tablet DAILY (route: oral) Med Classific ation: Genitouri nary Therapy furosemide 40 mg tablet 10-26 00:00: 00 04-01 23:59 :00 No [id number] 1 tablet 2 TIMES DAILY 1 tablet 2 TIMES DAILY (route: oral) Med Classific ation: Cardiovas cular Therapy Agents magnesium 400 mg (as magnesium oxide) tablet 10-26 00:00: 00 04-01 23:59 :00 No [id number] 1 tablet DAILY 1 tablet DAILY (route: oral) Med Classific ation: Electroly te Balance-N utritiona l Products prednisolon e acetate 1 % eye drops,suspe nsion 10-26 00:00: 00 04-01 23:59 :00 No [id number] 1 drops 3 TIMES DAILY 1 drops 3 TIMES DAILY (route: ophthalmic (eye)) Med Classific ation: Ophthalmi c Agents ropinirole 0.25 mg tablet 09-28 00:00: 00 04-01 23:59 :00 No [id number] Per instruc tions DIRECTED Per instructio ns DIRECTED (route: oral) Med Classific ation: Central Nervous System Agents venlafaxine ER 225 mg tablet,exte nded release 24 hr 10-26 00:00: 00 04-01 23:59 :00 No [id number] 1 tablet DAILY 1 tablet DAILY (route: oral) Med Classific ation: Central Nervous System Agents Vitamin D3 125 mcg (5,000 unit) tablet 09-28 00:00: 00 04-01 23:59 :00 No [id number] 1 tablet DAILY 1 tablet DAILY (route: oral) Med Classific ation: Electroly te Balance-N utritiona l Products clonazepam 0.5 mg tablet 2023-04 0-11 00:00: 00 04-01 23:59 :00 No [id number] Per instruc tions BEDTIME Per instructio ns BEDTIME (route: oral) Med Classific ation: Central Nervous System Agents acetaminoph en 325 mg tablet 04-30 00:00: 00 06-27 23:59 :00 No [id number] 2 tablet EVERY 4 HOURS 2 tablet EVERY 4 HOURS (route: oral) Med Classific ation: Analgesic , Anti-infl ammatory or Antipyret ic albuterol sulfate HFA 90 mcg/actuati on aerosol inhaler 04-30 00:00: 00 06-27 23:59 :00 No [id number] 2 puff EVERY 6 HOURS 2 puff EVERY 6 HOURS (route: inhalation ) Med Classific ation: Respirato ry Therapy Agents amantadine HCl 100 mg tablet 04-30 00:00: 00 06-27 23:59 :00 No [id number] 1 tablet DAILY 1 tablet DAILY (route: oral) Med Classific ation: Central Nervous System Agents amoxicillin 500 mg capsule 04-30 00:00: 00 06-27 23:59 :00 No [id number] 4 capsule DIRECTED 4 capsule DIRECTED (route: oral) Med Classific ation: Anti-Infe ctive Agents Breo Ellipta 100 mcg-25 mcg/dose powder for inhalation 04-30 00:00: 00 06-27 23:59 :00 No [id number] 1 inhalat ion DAILY 1 inhalation DAILY (route: inhalation ) Med Classific ation: Respirato ry Therapy Agents clonazepam 0.5 mg tablet 04-30 00:00: 00 06-27 23:59 :00 No [id number] 1 tablet BEDTIME 1 tablet BEDTIME (route: oral) Med Classific ation: Central Nervous System Agents docusate sodium 100 mg capsule 04-30 00:00: 00 06-27 23:59 :00 No [id number] 1 capsule 2 TIMES DAILY 1 capsule 2 TIMES DAILY (route: oral) Med Classific ation: Gastroint estinal Therapy Agents Eliquis 5 mg tablet 04-30 00:00: 00 06-27 23:59 :00 No [id number] 1 tablet 2 TIMES DAILY 1 tablet 2 TIMES DAILY (route: oral) Med Classific ation: Hematolog ical Agents finasteride 5 mg tablet 04-30 00:00: 00 06-27 23:59 :00 No [id number] 1 tablet DAILY 1 tablet DAILY (route: oral) Med Classific ation: Genitouri nary Therapy gabapentin 100 mg capsule 04-30 00:00: 00 06-27 23:59 :00 No [id number] 1 capsule DAILY 1 capsule DAILY (route: oral) Med Classific ation: Central Nervous System Agents gabapentin 300 mg capsule - 00:00: 00 06-27 23:59 :00 No [id number] 1 capsule BEDTIME 1 capsule BEDTIME (route: oral) Med Classific ation: Central Nervous System Agents mirtazapine 45 mg tablet - 00:00: 00 06-27 23:59 :00 No [id number] 1 tablet BEDTIME 1 tablet BEDTIME (route: oral) Med Classific ation: Central Nervous System Agents pantoprazol e 40 mg tablet,baltazar yed release - 00:00: 00 06-27 23:59 :00 No [id number] 1 tablet DAILY 1 tablet DAILY (route: oral) Med Classific ation: Gastroint estinal Therapy Agents ropinirole 0.25 mg tablet 04-30 00:00: 00 06-27 23:59 :00 No [id number] 1-4 tablet DIRECTED 1-4 tablet DIRECTED (route: oral) Med Classific ation: Central Nervous System Agents Rytary 36.25 mg-145 mg capsule,ext ended release 04-30 00:00: 00 06-27 23:59 :00 No [id number] 2 capsule 4 TIMES DAILY 2 capsule 4 TIMES DAILY (route: oral) Med Classific ation: Central Nervous System Agents venlafaxine ER 225 mg tablet,exte nded release 24 hr - 00:00: 00 06-27 23:59 :00 No [id number] 1 tablet BEDTIME 1 tablet BEDTIME (route: oral) Med Classific ation: Central Nervous System Agents amantadine HCl 100 mg capsule 3-04 00:00: 00 Yes [id number] 1 capsule DAILY 1 capsule DAILY (route: oral) Med Classific ation: Central Nervous System Agents clonazepam 0.5 mg tablet 3-04 00:00: 00 Yes [id number] 1 tablet BEDTIME 1 tablet BEDTIME (route: oral) Med Classific ation: Central Nervous System Agents Eliquis 5 mg tablet 3-04 00:00: 00 Yes [id number] 1 tablet 2 TIMES DAILY 1 tablet 2 TIMES DAILY (route: oral) Med Classific ation: Hematolog ical Agents finasteride 5 mg tablet 06-29 00:00: 00 Yes [id number] 1 tablet DAILY 1 tablet DAILY (route: oral) Med Classific ation: Genitouri nary Therapy gabapentin 100 mg capsule 06-29 00:00: 00 Yes [id number] 1 capsule DAILY 1 capsule DAILY (route: oral) Med Classific ation: Central Nervous System Agents gabapentin 300 mg capsule 06-29 00:00: 00 Yes [id number] 1 capsule BEDTIME 1 capsule BEDTIME (route: oral) Med Classific ation: Central Nervous System Agents mirtazapine 45 mg tablet 06-29 00:00: 00 Yes [id number] 1 tablet DAILY 1 tablet DAILY (route: oral) Med Classific ation: Central Nervous System Agents pantoprazol e 40 mg tablet,baltazar yed release 06-29 00:00: 00 10-21 23:59 :00 No [id number] 1 tablet DAILY 1 tablet DAILY (route: oral) Med Classific ation: Gastroint estinal Therapy Agents ropinirole 0.25 mg tablet 06-29 00:00: 00 Yes [id number] 2 tablet DAILY 2 tablet DAILY (route: oral) Med Classific ation: Central Nervous System Agents Rytary 36.25 mg-145 mg capsule,ext ended release 06-29 00:00: 00 Yes [id number] 3 capsule 4 TIMES DAILY 3 capsule 4 TIMES DAILY (route: oral) Med Classific ation: Central Nervous System Agents venlafaxine ER 225 mg tablet,exte nded release 24 hr 06-29 00:00: 00 Yes [id number] 1 tablet DAILY 1 tablet DAILY (route: oral) Med Classific ation: Central Nervous System Agents albuterol sulfate HFA 90 mcg/actuati on aerosol inhaler 06-29 00:00: 00 Yes [id number] 2 puff EVERY 6 HOURS 2 puff EVERY 6 HOURS (route: inhalation ) Med Classific ation: Respirato ry Therapy Agents Breo Ellipta 100 mcg-25 mcg/dose powder for inhalation 3-04 00:00: 00 Yes [id number] 1 inhalat ion DAILY 1 inhalation DAILY (route: inhalation ) Med Classific ation: Respirato ry Therapy Agents pantoprazol e 40 mg tablet,baltazar yed release 3- 00:00: 00 10-21 23:59 :00 No [id number] 1 tablet 2 TIMES DAILY 1 tablet 2 TIMES DAILY (route: oral) Med Classific ation: Gastroint estinal Therapy Agents fluconazole 200 mg tablet - 00:00: 00 Yes [id number] 200 mg DAILY 200 mg DAILY (route: oral) Alternate Route: SUBLINGUA L. Med Classific ation: Anti-Infe ctive Agents Carafate 100 mg/mL oral suspension 10-26 00:00: 00 Yes [id number] 10 mL 4 TIMES DAILY 10 mL 4 TIMES DAILY (route: oral) Med Classific ation: Gastroint estinal Therapy Agents Voquezna 20 mg tablet 10-26 00:00: 00 12-03 00:58 :03.3 47 No [id number] 1 tablet 2 TIMES DAILY 1 tablet 2 TIMES DAILY (route: oral) Med Classific ation: Gastroint estinal Therapy Agents Voquezna 20 mg tablet 10-21 00:00: 00 Yes [id number] 1 tablet 2 TIMES DAILY 1 tablet [...] BLOCKAGE/LEAKAGE, HEAVY SEDIMENT. 1 - 3 PRN CUSTODIAL VISITS FOR CATHETER CHANGE(S) AND/OR TROUBLESHOOTING. [code = SKILLED NURSE TO INSTRUCT PATIENT/CAREGIVER AND PERFORM CARE AND MANAGEMENT OF INDWELLING URINARY CATHETER. [place] CATHETER INSERTION WITH 18 FR CATHETER WITH 10 ML BALLOON VIA STERILE TECHNIQUE, CHANGE Q 4 WEEKS AND PRN FOR LEAKING OR MALFUNCTIONING CATHETER. IRRIGATE URINARY CATHETER WITH 30-60CC NORMAL SALINE PRN BLOCKAGE/LEAKAGE, HEAVY SEDIMENT. 1 - 3 PRN CUSTODIAL VISITS FOR CATHETER CHANGE(S) AND/OR TROUBLESHOOTING.] Future [...] MAINTAIN SITUATIONAL AWARENESS AND WILL NOTIFY CLINICAL TRAIN ELECTRONIC TECHNICIAN AND PHYSICIAN/PROVIDER WITH ANY CHANGE IN CONDITION. [code = SKILLED NURSE TO PERFORM ENVIRONMENTAL SAFETY RISK ASSESSMENT AND FALL RISK ASSESSMENT AND PROVIDE INSTRUCTION TO IMPLEMENT ENVIRONMENTAL SAFETY AND FALL PREVENTION STRATEGIES THROUGHOUT THE CERTIFICATION PERIOD. SKILLED NURSE WILL MAINTAIN SITUATIONAL AWARENESS AND WILL NOTIFY CLINICAL TRAIN ELECTRONIC TECHNICIAN AND PHYSICIAN/PROVIDER WITH ANY CHANGE IN [...] LASIX PATIENT LIVING SITUATION/CAREGIVER STATUS: [facility] SUM[facility] SKILLED NEED: DISEASE [...] CARE WILL BE ESTABLISHED THAT MEETS PATIENT'S CUSTODIAL NEEDS AND INCLUDES PATIENT GOAL FOR HOME [...] Outpatient RECERTIFIC ATION DEMETRI SLAUGHTER [facility] [id number] 6.25
--- OUTSIDE RECORDS SUMMARY | 2025-04-23 19:00 | XMS_ITS | Clinical Summary ---
Author Organization Unknown Care Team Providers Care Shipping Inspector Name Role Phone DARIAN DANGELO, ANYA Unavailable Unavaila aleisha CHRISTENSEN REAGENT TENDER/SKIRT MAKER, RENAN Unavailable Unava susie SLAUGHTER RN, DEMETRI Unavailable Unavailable Payers Payer Name Policy Type Policy Number Effective Date Expira tion Date MEDICARE - [facility] - PD [id number] Problems Condition Name Condition Details Condition Category [...] 01-11 00:00: 00 01-18 23:59 :00 No [id number] 1 tablet 2 TIMES DAILY 1 tablet 2 TIMES DAILY (route: oral) Med Classific ation: Anti-Infe ctive Agents lactulose 10 gram/15 mL oral solution 01-11 00:00: 00 04-01 23:59 :00 No [id number] 30 g DAILY 30 g DAILY (route: oral) Med Classific ation: Gastroint estinal Therapy Agents Rytary 36.25 mg-145 mg capsule,ext ended release 13 00:00: 00 04-01 23:59 :00 No [id number] 4 capsule 4 TIMES DAILY 4 capsule 4 TIMES DAILY (route: oral) Med Classific ation: Central Nervous System Agents Breo Ellipta 100 mcg-25 mcg/dose powder for inhalation - 00:00: 00 04-01 23:59 :00 No [id number] 1 inhalat ion ONCE DAILY 1 inhalation ONCE DAILY (route: inhalation ) Med Classific ation: Respirato ry Therapy Agents mirtazapine 45 mg tablet 12-12 00:00: 00 04-01 23:59 :00 No [id number] 1 tablet DAILY 1 tablet DAILY (route: oral) Med Classific ation: Central Nervous System Agents docusate sodium 100 mg capsule 16 00:00: 00 04-01 23:59 :00 No [id number] 1 capsule 2 TIMES DAILY 1 capsule 2 TIMES DAILY (route: oral) Med Classific ation: Gastroint estinal Therapy Agents Eliquis 5 mg tablet 10-26 00:00: 00 04-01 23:59 :00 No [id number] 1 tablet 2 TIMES DAILY 1 tablet 2 TIMES DAILY (route: oral) Med Classific ation: Hematolog ical Agents ferrous sulfate 325 mg (65 mg iron) tablet 10-26 00:00: 00 04-01 23:59 :00 No [id number] 1 tablet DAILY 1 tablet DAILY (route: oral) Med Classific ation: Electroly te Balance-N utritiona l Products finasteride 5 mg tablet 10-26 00:00: 00 04-01 23:59 :00 No [id number] 1 tablet DAILY 1 tablet DAILY (route: oral) Med Classific ation: Genitouri nary Therapy furosemide 40 mg tablet 10-26 00:00: 00 04-01 23:59 :00 No [id number] 1 tablet 2 TIMES DAILY 1 tablet 2 TIMES DAILY (route: oral) Med Classific ation: Cardiovas cular Therapy Agents magnesium 400 mg (as magnesium oxide) tablet 10-26 00:00: 00 04-01 23:59 :00 No [id number] 1 tablet DAILY 1 tablet DAILY (route: oral) Med Classific ation: Electroly te Balance-N utritiona l Products prednisolon e acetate 1 % eye drops,suspe nsion 10-26 00:00: 00 04-01 23:59 :00 No [id number] 1 drops 3 TIMES DAILY 1 drops 3 TIMES DAILY (route: ophthalmic (eye)) Med Classific ation: Ophthalmi c Agents ropinirole 0.25 mg tablet 09-28 00:00: 00 04-01 23:59 :00 No [id number] Per instruc tions DIRECTED Per instructio ns DIRECTED (route: oral) Med Classific ation: Central Nervous System Agents venlafaxine ER 225 mg tablet,exte nded release 24 hr 10-26 00:00: 00 04-01 23:59 :00 No [id number] 1 tablet DAILY 1 tablet DAILY (route: oral) Med Classific ation: Central Nervous System Agents Vitamin D3 125 mcg (5,000 unit) tablet 09-28 00:00: 00 04-01 23:59 :00 No [id number] 1 tablet DAILY 1 tablet DAILY (route: oral) Med Classific ation: Electroly te Balance-N utritiona l Products clonazepam 0.5 mg tablet 2023-04 0-11 00:00: 00 04-01 23:59 :00 No [id number] Per instruc tions BEDTIME Per instructio ns BEDTIME (route: oral) Med Classific ation: Central Nervous System Agents acetaminoph en 325 mg tablet 04-30 00:00: 00 06-27 23:59 :00 No [id number] 2 tablet EVERY 4 HOURS 2 tablet EVERY 4 HOURS (route: oral) Med Classific ation: Analgesic , Anti-infl ammatory or Antipyret ic albuterol sulfate HFA 90 mcg/actuati on aerosol inhaler 04-30 00:00: 00 06-27 23:59 :00 No [id number] 2 puff EVERY 6 HOURS 2 puff EVERY 6 HOURS (route: inhalation ) Med Classific ation: Respirato ry Therapy Agents amantadine HCl 100 mg tablet 04-30 00:00: 00 06-27 23:59 :00 No [id number] 1 tablet DAILY 1 tablet DAILY (route: oral) Med Classific ation: Central Nervous System Agents amoxicillin 500 mg capsule 04-30 00:00: 00 06-27 23:59 :00 No [id number] 4 capsule DIRECTED 4 capsule DIRECTED (route: oral) Med Classific ation: Anti-Infe ctive Agents Breo Ellipta 100 mcg-25 mcg/dose powder for inhalation 04-30 00:00: 00 06-27 23:59 :00 No [id number] 1 inhalat ion DAILY 1 inhalation DAILY (route: inhalation ) Med Classific ation: Respirato ry Therapy Agents clonazepam 0.5 mg tablet 04-30 00:00: 00 06-27 23:59 :00 No [id number] 1 tablet BEDTIME 1 tablet BEDTIME (route: oral) Med Classific ation: Central Nervous System Agents docusate sodium 100 mg capsule 04-30 00:00: 00 06-27 23:59 :00 No [id number] 1 capsule 2 TIMES DAILY 1 capsule 2 TIMES DAILY (route: oral) Med Classific ation: Gastroint estinal Therapy Agents Eliquis 5 mg tablet 04-30 00:00: 00 06-27 23:59 :00 No [id number] 1 tablet 2 TIMES DAILY 1 tablet 2 TIMES DAILY (route: oral) Med Classific ation: Hematolog ical Agents finasteride 5 mg tablet 04-30 00:00: 00 06-27 23:59 :00 No [id number] 1 tablet DAILY 1 tablet DAILY (route: oral) Med Classific ation: Genitouri nary Therapy gabapentin 100 mg capsule 04-30 00:00: 00 06-27 23:59 :00 No [id number] 1 capsule DAILY 1 capsule DAILY (route: oral) Med Classific ation: Central Nervous System Agents gabapentin 300 mg capsule - 00:00: 00 06-27 23:59 :00 No [id number] 1 capsule BEDTIME 1 capsule BEDTIME (route: oral) Med Classific ation: Central Nervous System Agents mirtazapine 45 mg tablet - 00:00: 00 06-27 23:59 :00 No [id number] 1 tablet BEDTIME 1 tablet BEDTIME (route: oral) Med Classific ation: Central Nervous System Agents pantoprazol e 40 mg tablet,baltazar yed release - 00:00: 00 06-27 23:59 :00 No [id number] 1 tablet DAILY 1 tablet DAILY (route: oral) Med Classific ation: Gastroint estinal Therapy Agents ropinirole 0.25 mg tablet 04-30 00:00: 00 06-27 23:59 :00 No [id number] 1-4 tablet DIRECTED 1-4 tablet DIRECTED (route: oral) Med Classific ation: Central Nervous System Agents Rytary 36.25 mg-145 mg capsule,ext ended release 04-30 00:00: 00 06-27 23:59 :00 No [id number] 2 capsule 4 TIMES DAILY 2 capsule 4 TIMES DAILY (route: oral) Med Classific ation: Central Nervous System Agents venlafaxine ER 225 mg tablet,exte nded release 24 hr - 00:00: 00 06-27 23:59 :00 No [id number] 1 tablet BEDTIME 1 tablet BEDTIME (route: oral) Med Classific ation: Central Nervous System Agents amantadine HCl 100 mg capsule 3-04 00:00: 00 Yes [id number] 1 capsule DAILY 1 capsule DAILY (route: oral) Med Classific ation: Central Nervous System Agents clonazepam 0.5 mg tablet 3-04 00:00: 00 Yes [id number] 1 tablet BEDTIME 1 tablet BEDTIME (route: oral) Med Classific ation: Central Nervous System Agents Eliquis 5 mg tablet 3-04 00:00: 00 Yes [id number] 1 tablet 2 TIMES DAILY 1 tablet 2 TIMES DAILY (route: oral) Med Classific ation: Hematolog ical Agents finasteride 5 mg tablet 06-29 00:00: 00 Yes [id number] 1 tablet DAILY 1 tablet DAILY (route: oral) Med Classific ation: Genitouri nary Therapy gabapentin 100 mg capsule 06-29 00:00: 00 Yes [id number] 1 capsule DAILY 1 capsule DAILY (route: oral) Med Classific ation: Central Nervous System Agents gabapentin 300 mg capsule 06-29 00:00: 00 Yes [id number] 1 capsule BEDTIME 1 capsule BEDTIME (route: oral) Med Classific ation: Central Nervous System Agents mirtazapine 45 mg tablet 06-29 00:00: 00 Yes [id number] 1 tablet DAILY 1 tablet DAILY (route: oral) Med Classific ation: Central Nervous System Agents pantoprazol e 40 mg tablet,baltazar yed release 06-29 00:00: 00 10-21 23:59 :00 No [id number] 1 tablet DAILY 1 tablet DAILY (route: oral) Med Classific ation: Gastroint estinal Therapy Agents ropinirole 0.25 mg tablet 06-29 00:00: 00 Yes [id number] 2 tablet DAILY 2 tablet DAILY (route: oral) Med Classific ation: Central Nervous System Agents Rytary 36.25 mg-145 mg capsule,ext ended release 06-29 00:00: 00 Yes [id number] 3 capsule 4 TIMES DAILY 3 capsule 4 TIMES DAILY (route: oral) Med Classific ation: Central Nervous System Agents venlafaxine ER 225 mg tablet,exte nded release 24 hr 06-29 00:00: 00 Yes [id number] 1 tablet DAILY 1 tablet DAILY (route: oral) Med Classific ation: Central Nervous System Agents albuterol sulfate HFA 90 mcg/actuati on aerosol inhaler 06-29 00:00: 00 Yes [id number] 2 puff EVERY 6 HOURS 2 puff EVERY 6 HOURS (route: inhalation ) Med Classific ation: Respirato ry Therapy Agents Breo Ellipta 100 mcg-25 mcg/dose powder for inhalation 3-04 00:00: 00 Yes [id number] 1 inhalat ion DAILY 1 inhalation DAILY (route: inhalation ) Med Classific ation: Respirato ry Therapy Agents pantoprazol e 40 mg tablet,baltazar yed release 3- 00:00: 00 10-21 23:59 :00 No [id number] 1 tablet 2 TIMES DAILY 1 tablet 2 TIMES DAILY (route: oral) Med Classific ation: Gastroint estinal Therapy Agents fluconazole 200 mg tablet - 00:00: 00 Yes [id number] 200 mg DAILY 200 mg DAILY (route: oral) Alternate Route: SUBLINGUA L. Med Classific ation: Anti-Infe ctive Agents Carafate 100 mg/mL oral suspension 10-26 00:00: 00 Yes [id number] 10 mL 4 TIMES DAILY 10 mL 4 TIMES DAILY (route: oral) Med Classific ation: Gastroint estinal Therapy Agents Voquezna 20 mg tablet 10-26 00:00: 00 12-03 00:58 :03.3 47 No [id number] 1 tablet 2 TIMES DAILY 1 tablet 2 TIMES DAILY (route: oral) Med Classific ation: Gastroint estinal Therapy Agents Voquezna 20 mg tablet 10-21 00:00: 00 Yes [id number] 1 tablet 2 TIMES DAILY 1 tablet [...] MAINTAIN SITUATIONAL AWARENESS AND WILL NOTIFY CLINICAL SIZING MACHINE TENDER AND PHYSICIAN/PROVIDER WITH ANY CHANGE IN CONDITION. [code = SKILLED NURSE TO PERFORM ENVIRONMENTAL SAFETY RISK ASSESSMENT AND FALL RISK ASSESSMENT AND PROVIDE INSTRUCTION TO IMPLEMENT ENVIRONMENTAL SAFETY AND FALL PREVENTION STRATEGIES THROUGHOUT THE CERTIFICATION PERIOD. SKILLED NURSE WILL MAINTAIN SITUATIONAL AWARENESS AND WILL NOTIFY CLINICAL SIZING MACHINE TENDER AND PHYSICIAN/PROVIDER WITH ANY CHANGE IN CONDITION.] [...] LASIX PATIENT LIVING SITUATION/CAREGIVER STATUS: [facility] SUM[facility] SKILLED NEED: DISEASE MANAGEMENT [...] DEMETRI SLAUGHTER [facility] [id number] 6.25
--- OUTSIDE RECORDS SUMMARY | 2025-04-23 19:00 | XMS_ITS | Clinical Summary ---
Author Organization Unknown Care Team Providers Care Automation Controls Specialist Name Role Phone DARIAN DANGELO, ANYA Unavailable Unavaila aleisha CHRISTENSEN SITE TECHNICIAN/CONCRETE PANEL INSTALLER, RENAN Unavailable Unava susie SLAUGHTER RN, DEMETRI Unavailable Unavailable Payers Payer Name Policy Type Policy Number Effective Date Expira tion Date MEDICARE - [facility] - PD [id number] Problems Condition Name Condition Details Condition Category [...] 01-11 00:00: 00 01-18 23:59 :00 No [id number] 1 tablet 2 TIMES DAILY 1 tablet 2 TIMES DAILY (route: oral) Med Classific ation: Anti-Infe ctive Agents lactulose 10 gram/15 mL oral solution 01-11 00:00: 00 04-01 23:59 :00 No [id number] 30 g DAILY 30 g DAILY (route: oral) Med Classific ation: Gastroint estinal Therapy Agents Rytary 36.25 mg-145 mg capsule,ext ended release 13 00:00: 00 04-01 23:59 :00 No [id number] 4 capsule 4 TIMES DAILY 4 capsule 4 TIMES DAILY (route: oral) Med Classific ation: Central Nervous System Agents Breo Ellipta 100 mcg-25 mcg/dose powder for inhalation - 00:00: 00 04-01 23:59 :00 No [id number] 1 inhalat ion ONCE DAILY 1 inhalation ONCE DAILY (route: inhalation ) Med Classific ation: Respirato ry Therapy Agents mirtazapine 45 mg tablet 12-12 00:00: 00 04-01 23:59 :00 No [id number] 1 tablet DAILY 1 tablet DAILY (route: oral) Med Classific ation: Central Nervous System Agents docusate sodium 100 mg capsule 16 00:00: 00 04-01 23:59 :00 No [id number] 1 capsule 2 TIMES DAILY 1 capsule 2 TIMES DAILY (route: oral) Med Classific ation: Gastroint estinal Therapy Agents Eliquis 5 mg tablet 10-26 00:00: 00 04-01 23:59 :00 No [id number] 1 tablet 2 TIMES DAILY 1 tablet 2 TIMES DAILY (route: oral) Med Classific ation: Hematolog ical Agents ferrous sulfate 325 mg (65 mg iron) tablet 10-26 00:00: 00 04-01 23:59 :00 No [id number] 1 tablet DAILY 1 tablet DAILY (route: oral) Med Classific ation: Electroly te Balance-N utritiona l Products finasteride 5 mg tablet 10-26 00:00: 00 04-01 23:59 :00 No [id number] 1 tablet DAILY 1 tablet DAILY (route: oral) Med Classific ation: Genitouri nary Therapy furosemide 40 mg tablet 10-26 00:00: 00 04-01 23:59 :00 No [id number] 1 tablet 2 TIMES DAILY 1 tablet 2 TIMES DAILY (route: oral) Med Classific ation: Cardiovas cular Therapy Agents magnesium 400 mg (as magnesium oxide) tablet 10-26 00:00: 00 04-01 23:59 :00 No [id number] 1 tablet DAILY 1 tablet DAILY (route: oral) Med Classific ation: Electroly te Balance-N utritiona l Products prednisolon e acetate 1 % eye drops,suspe nsion 10-26 00:00: 00 04-01 23:59 :00 No [id number] 1 drops 3 TIMES DAILY 1 drops 3 TIMES DAILY (route: ophthalmic (eye)) Med Classific ation: Ophthalmi c Agents ropinirole 0.25 mg tablet 09-28 00:00: 00 04-01 23:59 :00 No [id number] Per instruc tions DIRECTED Per instructio ns DIRECTED (route: oral) Med Classific ation: Central Nervous System Agents venlafaxine ER 225 mg tablet,exte nded release 24 hr 10-26 00:00: 00 04-01 23:59 :00 No [id number] 1 tablet DAILY 1 tablet DAILY (route: oral) Med Classific ation: Central Nervous System Agents Vitamin D3 125 mcg (5,000 unit) tablet 09-28 00:00: 00 04-01 23:59 :00 No [id number] 1 tablet DAILY 1 tablet DAILY (route: oral) Med Classific ation: Electroly te Balance-N utritiona l Products clonazepam 0.5 mg tablet 2023-04 0-11 00:00: 00 04-01 23:59 :00 No [id number] Per instruc tions BEDTIME Per instructio ns BEDTIME (route: oral) Med Classific ation: Central Nervous System Agents acetaminoph en 325 mg tablet 04-30 00:00: 00 06-27 23:59 :00 No [id number] 2 tablet EVERY 4 HOURS 2 tablet EVERY 4 HOURS (route: oral) Med Classific ation: Analgesic , Anti-infl ammatory or Antipyret ic albuterol sulfate HFA 90 mcg/actuati on aerosol inhaler 04-30 00:00: 00 06-27 23:59 :00 No [id number] 2 puff EVERY 6 HOURS 2 puff EVERY 6 HOURS (route: inhalation ) Med Classific ation: Respirato ry Therapy Agents amantadine HCl 100 mg tablet 04-30 00:00: 00 06-27 23:59 :00 No [id number] 1 tablet DAILY 1 tablet DAILY (route: oral) Med Classific ation: Central Nervous System Agents amoxicillin 500 mg capsule 04-30 00:00: 00 06-27 23:59 :00 No [id number] 4 capsule DIRECTED 4 capsule DIRECTED (route: oral) Med Classific ation: Anti-Infe ctive Agents Breo Ellipta 100 mcg-25 mcg/dose powder for inhalation 04-30 00:00: 00 06-27 23:59 :00 No [id number] 1 inhalat ion DAILY 1 inhalation DAILY (route: inhalation ) Med Classific ation: Respirato ry Therapy Agents clonazepam 0.5 mg tablet 04-30 00:00: 00 06-27 23:59 :00 No [id number] 1 tablet BEDTIME 1 tablet BEDTIME (route: oral) Med Classific ation: Central Nervous System Agents docusate sodium 100 mg capsule 04-30 00:00: 00 06-27 23:59 :00 No [id number] 1 capsule 2 TIMES DAILY 1 capsule 2 TIMES DAILY (route: oral) Med Classific ation: Gastroint estinal Therapy Agents Eliquis 5 mg tablet 04-30 00:00: 00 06-27 23:59 :00 No [id number] 1 tablet 2 TIMES DAILY 1 tablet 2 TIMES DAILY (route: oral) Med Classific ation: Hematolog ical Agents finasteride 5 mg tablet 04-30 00:00: 00 06-27 23:59 :00 No [id number] 1 tablet DAILY 1 tablet DAILY (route: oral) Med Classific ation: Genitouri nary Therapy gabapentin 100 mg capsule 04-30 00:00: 00 06-27 23:59 :00 No [id number] 1 capsule DAILY 1 capsule DAILY (route: oral) Med Classific ation: Central Nervous System Agents gabapentin 300 mg capsule - 00:00: 00 06-27 23:59 :00 No [id number] 1 capsule BEDTIME 1 capsule BEDTIME (route: oral) Med Classific ation: Central Nervous System Agents mirtazapine 45 mg tablet - 00:00: 00 06-27 23:59 :00 No [id number] 1 tablet BEDTIME 1 tablet BEDTIME (route: oral) Med Classific ation: Central Nervous System Agents pantoprazol e 40 mg tablet,baltazar yed release - 00:00: 00 06-27 23:59 :00 No [id number] 1 tablet DAILY 1 tablet DAILY (route: oral) Med Classific ation: Gastroint estinal Therapy Agents ropinirole 0.25 mg tablet 04-30 00:00: 00 06-27 23:59 :00 No [id number] 1-4 tablet DIRECTED 1-4 tablet DIRECTED (route: oral) Med Classific ation: Central Nervous System Agents Rytary 36.25 mg-145 mg capsule,ext ended release 04-30 00:00: 00 06-27 23:59 :00 No [id number] 2 capsule 4 TIMES DAILY 2 capsule 4 TIMES DAILY (route: oral) Med Classific ation: Central Nervous System Agents venlafaxine ER 225 mg tablet,exte nded release 24 hr - 00:00: 00 06-27 23:59 :00 No [id number] 1 tablet BEDTIME 1 tablet BEDTIME (route: oral) Med Classific ation: Central Nervous System Agents amantadine HCl 100 mg capsule 3-04 00:00: 00 Yes [id number] 1 capsule DAILY 1 capsule DAILY (route: oral) Med Classific ation: Central Nervous System Agents clonazepam 0.5 mg tablet 3-04 00:00: 00 Yes [id number] 1 tablet BEDTIME 1 tablet BEDTIME (route: oral) Med Classific ation: Central Nervous System Agents Eliquis 5 mg tablet 3-04 00:00: 00 Yes [id number] 1 tablet 2 TIMES DAILY 1 tablet 2 TIMES DAILY (route: oral) Med Classific ation: Hematolog ical Agents finasteride 5 mg tablet 06-29 00:00: 00 Yes [id number] 1 tablet DAILY 1 tablet DAILY (route: oral) Med Classific ation: Genitouri nary Therapy gabapentin 100 mg capsule 06-29 00:00: 00 Yes [id number] 1 capsule DAILY 1 capsule DAILY (route: oral) Med Classific ation: Central Nervous System Agents gabapentin 300 mg capsule 06-29 00:00: 00 Yes [id number] 1 capsule BEDTIME 1 capsule BEDTIME (route: oral) Med Classific ation: Central Nervous System Agents mirtazapine 45 mg tablet 06-29 00:00: 00 Yes [id number] 1 tablet DAILY 1 tablet DAILY (route: oral) Med Classific ation: Central Nervous System Agents pantoprazol e 40 mg tablet,baltazar yed release 06-29 00:00: 00 10-21 23:59 :00 No [id number] 1 tablet DAILY 1 tablet DAILY (route: oral) Med Classific ation: Gastroint estinal Therapy Agents ropinirole 0.25 mg tablet 06-29 00:00: 00 Yes [id number] 2 tablet DAILY 2 tablet DAILY (route: oral) Med Classific ation: Central Nervous System Agents Rytary 36.25 mg-145 mg capsule,ext ended release 06-29 00:00: 00 Yes [id number] 3 capsule 4 TIMES DAILY 3 capsule 4 TIMES DAILY (route: oral) Med Classific ation: Central Nervous System Agents venlafaxine ER 225 mg tablet,exte nded release 24 hr 06-29 00:00: 00 Yes [id number] 1 tablet DAILY 1 tablet DAILY (route: oral) Med Classific ation: Central Nervous System Agents albuterol sulfate HFA 90 mcg/actuati on aerosol inhaler 06-29 00:00: 00 Yes [id number] 2 puff EVERY 6 HOURS 2 puff EVERY 6 HOURS (route: inhalation ) Med Classific ation: Respirato ry Therapy Agents Breo Ellipta 100 mcg-25 mcg/dose powder for inhalation 3-04 00:00: 00 Yes [id number] 1 inhalat ion DAILY 1 inhalation DAILY (route: inhalation ) Med Classific ation: Respirato ry Therapy Agents pantoprazol e 40 mg tablet,baltazar yed release 3- 00:00: 00 10-21 23:59 :00 No [id number] 1 tablet 2 TIMES DAILY 1 tablet 2 TIMES DAILY (route: oral) Med Classific ation: Gastroint estinal Therapy Agents fluconazole 200 mg tablet - 00:00: 00 Yes [id number] 200 mg DAILY 200 mg DAILY (route: oral) Alternate Route: SUBLINGUA L. Med Classific ation: Anti-Infe ctive Agents Carafate 100 mg/mL oral suspension 10-26 00:00: 00 Yes [id number] 10 mL 4 TIMES DAILY 10 mL 4 TIMES DAILY (route: oral) Med Classific ation: Gastroint estinal Therapy Agents Voquezna 20 mg tablet 10-26 00:00: 00 12-03 00:58 :03.3 47 No [id number] 1 tablet 2 TIMES DAILY 1 tablet 2 TIMES DAILY (route: oral) Med Classific ation: Gastroint estinal Therapy Agents Voquezna 20 mg tablet 10-21 00:00: 00 Yes [id number] 1 tablet 2 TIMES DAILY 1 tablet [...] MAINTAIN SITUATIONAL AWARENESS AND WILL NOTIFY CLINICAL WIRELESS COMMUNICATIONS ENGINEER AND PHYSICIAN/PROVIDER WITH ANY CHANGE IN CONDITION. [code = SKILLED NURSE TO PERFORM ENVIRONMENTAL SAFETY RISK ASSESSMENT AND FALL RISK ASSESSMENT AND PROVIDE INSTRUCTION TO IMPLEMENT ENVIRONMENTAL SAFETY AND FALL PREVENTION STRATEGIES THROUGHOUT THE CERTIFICATION PERIOD. SKILLED NURSE WILL MAINTAIN SITUATIONAL AWARENESS AND WILL NOTIFY CLINICAL WIRELESS COMMUNICATIONS ENGINEER AND PHYSICIAN/PROVIDER WITH ANY CHANGE IN [...] [facility] PATIENT LIVING SITUATION/CAREGIVER STATUS: [facility] SUMMARIZE SKILLED NEED: [...] End Date/Time Encounter Type Admission Type Attending [facility] Care Department Encounter ID Discharge Date Discharge Status Discharge Condition Discharge Reason Percent Goals Met 2025-02-24 00:00:00 2025-04-24 00:00:00 Outpatient RECERTIFIC ATION DEMETRI SLAUGHTER [facility] [id number] 6.25
== END 2025-03-16 15:39 | disposition home or self-care (01) ==
LOC: HO.HSMS 14:38
PROVIDERS: PCP Internal Medicine; Visit Provider Psychiatry & Neurology Neurology
DX: G20.B2 Parkinson's disease with dyskinesia, with fluctuations (principal); G47.52 REM sleep behavior disorder; G25.81 Restless legs syndrome
CPT/HCPCS: 99214; G2211

== ENCOUNTER → 2025-03-16 14:37 | Outpatient (BNVA) | payer MEDICARE, SELFPAY | PROVIDERS: PCP Internal Medicine; Visit Provider Psychiatry & Neurology Neurology | DX: G20.B2 Parkinson's disease with dyskinesia, with fluctuations (principal); G47.52 REM sleep behavior disorder; G25.81 Restless legs syndrome; F02.80 Dementia in other diseases classified elsewhere, unspecified severity, without behavioral disturbance, psychotic disturbance, mood disturbance, and anxiety; Z96.82 Presence of neurostimulator | CPT/HCPCS: 99212 ==